=== PATIENT | female | born 1965 | race Caucasian/White ===

== ENCOUNTER 2024-08-10 21:30 | Inpatient (IN) ==
[2024-08-10] MEDS: SODIUM CHLORIDE 0.9% 2,000 ML IV ONE (22:22)
[2024-08-10 22:37] LABS: Appearance Urine Clear (Clear); Bacteria Urine Automated 1+ (None Seen); Bilirubin Urine Negative (Negative); Blood Urine 1+ (Negative); Cast Urine Automated 0-2 /lpf (0-2); Color Urine Yellow; Glucose Urine UA Negative (Negative); Ketones Urine Negative (Negative); Leukocyte Esterase Urine 1+ (Negative); Nitrite Urine Negative (Negative); Protein Urine Negative (Negative); RBC Urine Automated 0-2 /hpf (0-2); Specific Gravity Urine 1.012 (1.000-1.030); Urobilinogen Urine Negative (Negative); pH Urine 5.5 (4.5-7.5)
[2024-08-10] MEDS: CEFEPIME 2000MG 2,000 MG/20 ML SYR IV STA (22:49)
[2024-08-10 22:51] LABS: Albumin Globulin Ratio 1.4 (0.9-2); BUN Creatinine Ratio 16.5 (10-20); Bilirubin,Total 0.5 mg/dl (0.2-1.0); Calcium 9.3 mg/dl (8.6-10.3); Creatinine Clr Calc Pharmacy 78.5 ml/min; Globulin 2.8 gm/dl (2.5-4.0); Magnesium 1.4 mg/dl (1.7-2.4); Potassium 3.6 mmol/L (3.5-5.1); Total Protein 6.8 gm/dl (6.0-8.3)
--- NOTE | 2024-08-10 22:52 | Emergency Department Note ---
Impression & Plan Sepsis, Fever, Elevated lactic acid level, Hypomagnesemia ED Provider Note HISTORY OF PRESENT ILLNESS: Patient is a 59-year-old female presenting with a fever. Patient reports that she felt very hot and chilled at around 5 PM and took her temperature and it was 102. She states she took a Percocet and thinks that the Tylenol and the Percocet broke her temperature. However, the patient did just receive her fifth round of chemotherapy 48 hours ago. Denies any chest pain or shortness of breath. Denies any recent sick contact exposures. Denies any abdominal pain, nausea or vomiting. Denies any diarrhea. Denies any dysuria or hematuria. She is currently undergoing chemotherapy for metastatic lung cancer. Patient does report she is recently being treated for a port infection and is on oral antibiotics. ROS: as above PHYSICAL EXAM: Constitutional: Patient appears in no acute distress. HENT: Head: Normocephalic and atraumatic. Eyes: EOMI, PERRL Mouth/Throat: Mucous membranes moist. Neck: Trachea midline. Neck supple. Cardiovascular: Tachycardic with regular rhythm. No murmurs, rubs or gallops. Intact distal pulses. Pulmonary/Chest: No respiratory distress. Breath sounds clear and equal bilaterally. No wheezes or rales. Abdominal: Abdomen soft, no tenderness, rebound or guarding. Musculoskeletal: No edema, tenderness or deformity noted. Skin: Warm and dry. No rash, erythema, pallor or cyanosis Psychiatric: Appropriate mood and affect for situation. Neurological: Alert and keenly responsive. CN II-XII grossly intact, moving all extremities equally and fully. MDM: - Vitals signs showed tachycardia - History obtained via patient. History as above. - Chronic conditions affecting care: metastatic lung cancer; COPD; GERD - Differential diagnoses include, but are not limited to: pneumonia; viral syndrome; UTI; sepsis; bacteremia; electrolyte abnormality - Order placed for continuous cardiac monitoring. At this time, monitor showed rate of 102 bpm with normal sinus rhythm, per my interpretation. - External medical records reviewed. Radiation oncology history and physical exam dated 04/27/2024 was reviewed. Patient has primarily lung cancer that has metastasized to the bone. She was undergoing palliative radiation therapy of her left clavicle and thoracic spine. - EKG interpreted by myself showed normal sinus rhythm. Rate tachycardic at 117 bpm. QT 324. No acute ischemic changes. - Laboratory workup interpreted by myself showed leukocytosis (WBC 39.88) with neutrophil predominance; normal PT/INR; stable electrolytes other than hypomagnesemia (Mg 1.5); elevated lactate (2.3); normal procalcitonin; normal troponin - Blood cultures obtained - Patient given 1g IV magnesium in ER for electrolyte replacement - Patient given 2L NS in ER. Sepsis volume fluid calculation based on ideal body weight is 1636.20 mL - Empirically given 2g IV cefepime - UA shows evidence of infection - CXR negative for pneumonia, per my interpretation - Viral respiratory panel negative - Discussion was had with piano case and bench assembler about patient's case and need for admission - Hospitalist, Dr. Medina, consulted for admission - [facility] ASSESSMENT AND PLAN: Diagnosis: Sepsis; acute UTI; hypomagnesemia; elevated lactic acid level Plan: admit Past Med/Surg History Problem List (Updated 08/10/24 @ 23:27 by Melissa Galindo MD) Hypomagnesemia (Acute) Elevated lactic acid level (Acute) Fever (Acute) Sepsis (Acute) Malignant neoplasm of lung metastatic to bone (Chronic) Medical History Melanoma Lung cancer COPD (chronic obstructive pulmonary disease) Anxiety GERD (gastroesophageal reflux disease) History of tobacco abuse Surgical History (Updated 04/27/24 @ 08:22 by Brisa Young, DAVID) H/O breast augmentation History of carpal tunnel surgery History of surgery on arm History of bunionectomy History of tonsillectomy History of thoracotomy History of lung surgery History of lobectomy of lung Family History (Updated 04/27/24 @ 08:24 by Brisa Young RN) Father No problems noted. Mother Cancer, Onset Age: 71 pancreatic cancer Daughter No problems noted. Son No problems noted. Son No problems noted. Social History Smoking Status: Never smoker Preferred Language: Ukrainian Beliefs That Will Affect Care: None Feels Safe at Home: Yes Allergies Allergies Allergy/AdvReac Type Severity Reaction Status Date / Time Iodinated Contrast Media Allergy Unknown Rash Verified 05/09/24 14:17 Home Meds Home Medications Medication Instructions Recorded Confirmed atorvastatin 40 mg tablet 40 mg PO DAILY 04/27/24 05/09/24 cholecalciferol (vitamin D3) 50 50 mcg PO DAILY 04/27/24 05/09/24 mcg (2,000 unit) capsule clonazepam 0.5 mg tablet 0.5 mg PO DAILY PRN anxiety 04/27/24 05/09/24 conjugated estrogens 0.625 mg 0.625 mg PO DAILY 04/27/24 05/09/24 tablet (Premarin) dexamethasone 4 mg tablet 8 mg PO DAILY 04/27/24 05/09/24 duloxetine 30 mg capsule,delayed 30 mg PO DAILY 04/27/24 05/09/24 release ferrous sulfate 325 mg (65 mg 325 mg PO DAILY 04/27/24 05/09/24 iron) tablet lactulose 10 gram/15 mL oral 30 ml PO BID 04/27/24 05/09/24 solution oxycodone 40 mg tablet,crush 40 mg PO BID 04/27/24 05/09/24 resistant,extended release 12 hr oxycodone-acetaminophen 5 mg-325 2 tab PO Q6H PRN pain 04/27/24 05/09/24 mg tablet (Percocet) pantoprazole 40 mg tablet,delayed 40 mg PO BID 04/27/24 05/09/24 release tiotropium 2.5 mcg-olodaterol 2.5 2 puff inhalation DAILY 04/27/24 05/09/24 mcg/actuation mist for inhalation (Stiolto Respimat) trazodone 50 mg tablet 100 mg PO HS 04/27/24 05/09/24 Results & Data (ED) Vital Signs Vital Signs - 24 hr 08/10/24 21:32 08/10/24 22:07 08/10/24 22:18 Temperature 36.9 C Temperature Source Oral Pulse Rate 132 H 118 H Respiratory Rate 20 Respiratory Effort / Characteristics Non-Labored Spontaneous Respiratory Depth Normal Respiratory Pattern Regular Blood Pressure 133/82 Blood Pressure Mean 99 Blood Pressure Position Lying Pulse Oximetry 93 Oxygen Delivery Method Room Air Sepsis Recent Fever Within 48 Hours Yes Sepsis New/Unexplained Change in Mental Status No Sepsis Action Taken by Nursing No Action Required Laboratory Data 08/10/24 22:15 08/10/24 22:15 Lab Results 08/10/24 08/10/24 08/10/24 Range/Units 22:14 22:15 22:20 WBC 39.88 H* (4.8-10.8) K/ul RBC 3.74 L (4.20-5.40) M/uL Hgb 11.9 L (12.0-16.0) g/dl Hct 35.0 L (37.0-47.0) % MCV 93.6 (80.0-100.0) fL MCH 31.8 (25.0-34.0) pg MCHC 34.0 (32.0-36.0) g/dL RDW Std Deviation 57.6 H (36.4-46.3) fL RDW Coeff of [place] 16.6 H (11.5-14.5) % Plt Count 163 (130-400) K/uL MPV 10.5 (9.4-12.4) fL Immature Gran % (Auto) 5.1 % Neut % (Auto) 91.8 % Lymph % (Auto) 2.0 % [place] % (Auto) 0.7 % Eos % (Auto) 0.1 % Baso % (Auto) 0.3 % Neut # (Auto) 36.65 H (1.40-6.50) K/uL Lymph # (Auto) 0.79 L (1.20-3.40) K/uL [place] # (Auto) 0.28 (0.11-0.59) K/uL Eos # (Auto) 0.02 (0.00-0.50) K/uL Baso # (Auto) 0.10 (0.00-0.20) K/uL Immature Gran # (Auto) 2.04 H (0.01-0.20) K/uL Polychromasia 1+ PT 10.1 (9.0-12.0) Seconds INR 0.9 (0.9-1.1) APTT 22 (21-31) Seconds PTT Ratio 0.8 Sodium 138 (136-145) mmol/L Potassium 3.6 (3.5-5.1) mmol/L Chloride 103 (98-107) mmol/L Carbon Dioxide 25 (21-32) mmol/L Anion Gap 10 (3-11) BUN 13 (6-23) mg/dl Creatinine 0.79 (0.6-1.2) mg/dl Est Cr Clr Drug Dosing 78.5 ml/min eGFR 85.58 BUN/Creatinine Ratio 16.5 (10-20) Glucose 118 H (70-99(Fasting)) mg/dl Lactate 2.3 H* (0.4-2.0) mmol/L Calcium 9.3 (8.6-10.3) mg/dl Magnesium 1.4 L (1.7-2.4) mg/dl Total Bilirubin 0.5 (0.2-1.0) mg/dl AST 21 (13-39) U/L ALT 26 (7-52) U/L Alkaline Phosphatase 90 (34-104) U/L Troponin I High Sens 11.3 (0-14) pg/ml Total Protein 6.8 (6.0-8.3) gm/dl Albumin 4.0 (3.4-5.0) gm/dl Globulin 2.8 (2.5-4.0) gm/dl Albumin/Globulin Ratio 1.4 (0.9-2) Procalcitonin 0.19 (0-0.5) ng/ml Urine Color Yellow Urine Appearance Clear (Clear) Urine pH 5.5 (4.5-7.5) Ur Specific [place] 1.012 (1.000-1.030) Urine Protein Negative (Negative) Urine Glucose (UA) Negative (Negative) Urine Ketones Negative (Negative) Urine Blood 1+ H (Negative) Urine Nitrite Negative (Negative) Urine Bilirubin Negative (Negative) Urine Urobilinogen Negative (Negative) Ur Leukocyte Esterase 1+ H (Negative) Urine WBC (Auto) 6-10 H (0-5) /hpf Urine RBC (Auto) 0-2 (0-2) /hpf U Hyaline Cast (Auto) 0-2 (0-2) /lpf U Epithel Cells (Auto) 3-5 H (0-2) /hpf Urine Bacteria (Auto) 1+ H (None Seen) Adenovirus (PCR) Not Detected (NotDetected) B. pertussis DNA (PCR) Not Detected (NotDetected) B.parapertussis DNA PCR Not Detected (NotDetected) C. pneumoniae DNA (PCR) Not Detected (NotDetected) Coronavirus OC43 (PCR) Not Detected (NotDetected) Coronavirus HKU1 (PCR) Not Detected (NotDetected) Coronavirus 229E (PCR) Not Detected (NotDetected) SARS-CoV-2 (PCR) Not Detected (NotDetected) Coronavirus NL63 (PCR) Not Detected (NotDetected) Human Metapneumovir PCR Not Detected (NotDetected) Influenza Type A (PCR) Not Detected (NotDetected) Influenza Type B (PCR) Not Detected (NotDetected) M. pneumoniae (PCR) Not Detected (NotDetected) Parainfluenza 1 (PCR) Not Detected (NotDetected) Parainfluenza 2 (PCR) Not Detected (NotDetected) Parainfluenza 3 (PCR) Not Detected (NotDetected) Parainfluenza 4 (PCR) Not Detected (NotDetected) RSV (PCR) Not Detected (NotDetected) Entero/Rhino (PCR) Not Detected (NotDetected) Administered Medications Sodium Chloride (Nss) 2,000 mls @ 999 mls/hr IV .Q2H1M ONE Stop: 08/10/24 23:45 Last Admin: 08/10/24 22:22 Dose: 999 mls/hr Documented By: TITO Magnesium Sulfate/Dextrose (Magnesium Sulfate / D5w) 1 gm in 100 mls @ 100 mls/hr IV NOW STA Stop: 08/10/24 23:51 Last Admin: 08/10/24 23:11 Dose: 100 mls/hr Documented By: Discontinued Medications Cefepime HCl (Maxipime 2000mg) 2,000 mg in 20 mls @ 5 mls/min IV NOW STA; Protocol Stop: 08/10/24 22:39 Last Admin: 08/10/24 22:49 Dose: 5 mls/min Documented By: TITO Discharge Plan Visit Data Chief Complaint: Fever Stated Complaint: FEVER OF 102, CANCER TRMT PT, ED Provider: Melissa Galindo Discharge Problem: Sepsis, Fever, Elevated lactic acid level, Hypomagnesemia Forms Stand Alone Forms: My [facility] Prescriptions Prescriptions: No Action atorvastatin 40 mg tablet 40 mg PO DAILY clonazepam 0.5 mg tablet 0.5 mg PO DAILY PRN (Reason: anxiety) dexamethasone 4 mg tablet 8 mg PO DAILY duloxetine 30 mg capsule,delayed release(DR/EC) 30 mg PO DAILY ferrous sulfate 325 mg (65 mg iron) tablet 325 mg PO DAILY lactulose 10 gram/15 mL solution 30 ml PO BID oxycodone 40 mg tablet,oral only,ext.rel.12 hr 40 mg PO BID oxycodone-acetaminophen [Percocet] 5-325 mg tablet 2 tab PO Q6H PRN (Reason: pain) pantoprazole 40 mg tablet,delayed release (DR/EC) 40 mg PO BID Premarin 0.625 mg tablet 0.625 mg PO DAILY Rx Instructions: cyclically Stiolto Respimat 2.5-2.5 mcg/actuation mist 2 puff inhalation DAILY trazodone 50 mg tablet 100 mg PO HS cholecalciferol (vitamin D3) 50 mcg (2,000 unit) capsule 50 mcg PO DAILY Referrals Referrals: Tiffany Norris DO [Primary Care Provider] -
[2024-08-10 22:53] LABS: Basophils % (auto) 0.3 %; Eosinophils # (auto) 0.02 K/uL (0.00-0.50); Eosinophils % (auto) 0.1 %; Hemoglobin 11.9 g/dl (12.0-16.0); Immature Granulocytes # (auto) 2.04 K/uL (0.01-0.20); Immature Granulocytes % (auto) 5.1 %; Lymphocytes # (auto) 0.79 K/uL (1.20-3.40); Mean Corpuscular Hemoglobin 31.8 pg (25.0-34.0); Mean Corpuscular Volume 93.6 fL (80.0-100.0); Mean Platelet Volume 10.5 fL (9.4-12.4); Monocytes # (auto) 0.28 K/uL (0.11-0.59); Monocytes % (auto) 0.7 %; Neutrophils # (auto) 36.65 K/uL (1.40-6.50); Neutrophils % (auto) 91.8 %; Platelet Count 163 K/uL (130-400); Polychromasia 1+; RDW Coefficient of Variation 16.6 % (11.5-14.5); RDW Standard Deviation 57.6 fL (36.4-46.3); Red Blood Count 3.74 M/uL (4.20-5.40); White Blood Count 39.88 K/ul (4.8-10.8)
[2024-08-10 22:59] LABS: Troponin I High Sensitivity 11.3 pg/ml (0-14)
[2024-08-10 23:03] LABS: INR 0.9 (0.9-1.1); Partial Thromboplastin Ratio 0.8; Partial Thromboplastin Time 22 Seconds (21-31); Prothrombin Time 10.1 Seconds (9.0-12.0)
[2024-08-10] MEDS: MAGNESIUM SULFATE / D5W 1 GM/100 ML BAG IV STA (23:11)
[2024-08-10 23:17] LABS: Adenovirus PCR Not Detected (NotDetected); Bordetella parapertussis PCR Not Detected (NotDetected); Bordetella pertussis PCR Not Detected (NotDetected); Chlamydia pneumoniae PCR Not Detected (NotDetected); Coronavirus 229E PCR Not Detected (NotDetected); Coronavirus CoV-2 (COVID19)PCR Not Detected (NotDetected); Coronavirus HKU1 PCR Not Detected (NotDetected); Coronavirus NL63 PCR Not Detected (NotDetected); Coronavirus OC43PCR Not Detected (NotDetected); Human Metapneumovirus PCR Not Detected (NotDetected); Influenza A PCR Not Detected (NotDetected); Influenza B PCR Not Detected (NotDetected); Mycoplasma pneumoniae PCR Not Detected (NotDetected); Parainfluenza Virus 1 PCR Not Detected (NotDetected); Parainfluenza Virus 2 PCR Not Detected (NotDetected); Parainfluenza Virus 3 PCR Not Detected (NotDetected); Parainfluenza Virus 4 PCR Not Detected (NotDetected); Respiratory Syncytial VirusPCR Not Detected (NotDetected); Rhinovirus/Enterovirus PCR Not Detected (NotDetected)
--- NOTE | 2024-08-10 23:34 | History & Physical Report ---
Date of Service August 10, 2024 Assessment & Plan (1) Severe sepsis: Plan: Severe sepsis SIRS plus lactic acidosis Immunocompromised patient, hx metastatic lung adenocarcinoma status post surgery/radiation/ongoing chemotherapy A port infection as possible source, possible malpositioning on recent outpatient PET/CT Failed outpatient treatment with Keflex/Bactrim Rule out abscess hx COPD, lung status at baseline WHIT as per records hyperlipidemia, on statin Rx prior ME on recent outpatient PET scan, outpatient nuclear stress test contemplated by cardiology next week mood disorder, at baseline Hyperglycemia rule out DM Hypomagnesemia past tobacco abuse Medical telemetry CS, Daptomycin, Cefepime Hold statin while on daptomycin Follow lactic acid response to IVF CT chest right a port swelling Further management pending initial workup results Check hemoglobin A1c DVT prophylaxis. Lovenox subcu Full code Patient requesting updates providers. Mr. Darryl Andrews, contact #[phone]. Text document was generated using [employer] voice recognition software. It may contain grammatical or spelling errors. Kindly contact undersigned for clarification of any documentation item in question. History of Present Illness Chief Complaint: Fever Primary Care Provider: Richard Marshall DO History obtained from patient, family, and records. Medical history significant for COPD, WHIT as per records, hyperlipidemia, metastatic lung adenocarcinoma status post surgery/radiation/ongoing chemotherapy, prior ME on recent outpatient PET scan, GERD, mood disorder, past tobacco abuse. Patient with recurrent redness/swelling over right Aport site the last 2 months. IR guided A port placeemnt at [facility] March 2024. 2 courses of outpatient Keflex. Seems to be coinciding with chemotherapy sessions as per patient. Twist or spiral on Mediport catheter within proximal SVC incidentally found on outpatient PET/CT June 2024. Patient recently started by outpatient oncology provider on Bactrim course following visit 2 days ago. Tonight, patient noted fever, chills at home. Denies chest pain, SOB, cough, abdominal pain, diarrhea or dysuria symptoms. IV cefepime administered at the ER. Medical History as above Outpatient PET/CT June 2024 1. Findings consistent with response to therapy with decreasing size and activity of the esophageal/paraesophageal lesion in the lower thorax, left infrahilar lymph node, left lower lobe nodule, and left paraspinal/costophrenic angle nodule. 2. Multiple previously treated osseous metastatic lesions. The remaining active ones are as detailed below with decreased activity from the previous examination consistent with response to therapy. 3. Diffuse marrow space activity is present, likely secondary to hyperstimulation or rebound effect. 4. There is a twist or spiral of the MediPort catheter within the proximal superior vena cava. Recommend correlation with catheter function. 5. Prior myocardial infarction. Outpatient [facility] cardiology visit today given myocardial infarction on outpatient CT associated with post chemo chest pain. Outpatient nuclear stress test contemplated next week. Aspirin and metoprolol Rx prescribed by outpatient provider interim. 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 Allergies Allergy/AdvReac Type Severity Reaction Status Date / Time Iodinated Contrast Media Allergy Unknown Rash Verified 08/10/24 23:28 Home Medications Medication Instructions Recorded Confirmed Type atorvastatin 40 mg tablet 40 mg PO QAM 04/27/24 08/10/24 History cholecalciferol (vitamin D3) 50 50 mcg PO HS 04/27/24 08/10/24 History mcg (2,000 unit) capsule clonazepam 0.5 mg tablet 0.5 mg PO DAILY PRN anxiety 04/27/24 08/10/24 History conjugated estrogens 0.625 mg 0.625 mg PO HS 04/27/24 08/10/24 History tablet (Premarin) duloxetine 30 mg capsule,delayed 30 mg PO HS 04/27/24 08/10/24 History release ferrous sulfate 325 mg (65 mg 325 mg PO HS 04/27/24 08/10/24 History iron) tablet oxycodone-acetaminophen 5 mg-325 2 tab PO Q6H PRN pain 04/27/24 08/10/24 History mg tablet (Percocet) pantoprazole 40 mg tablet,delayed 40 mg PO BID 04/27/24 08/10/24 History release tiotropium 2.5 mcg-olodaterol 2.5 2 puff inhalation QAM 04/27/24 08/10/24 History mcg/actuation mist for inhalation (Stiolto Respimat) trazodone 50 mg tablet 100 mg PO HS 04/27/24 08/10/24 History allopurinol 100 mg tablet 100 mg PO QAM 08/10/24 08/10/24 History aspirin 81 mg tablet,delayed 81 mg PO DAILY 08/10/24 08/10/24 History release metoprolol succinate 25 mg 12.5 mg PO DAILY 08/10/24 08/10/24 History tablet,extended release 24 hr olanzapine 10 mg tablet See Rx Instructions .Route .COMPLEX 08/10/24 08/10/24 History ondansetron HCl 8 mg tablet 8 mg PO Q8 PRN Nausea 08/10/24 08/10/24 History sulfamethoxazole 800 1 tab PO AMHS 08/10/24 08/10/24 History mg-trimethoprim 160 mg tablet Past Med/Surg History Problem List (Updated 08/11/24 @ 01:26 by Gume Medina MD) Severe sepsis Hypomagnesemia (Acute) Elevated lactic acid level (Acute) Fever (Acute) Sepsis (Acute) Malignant neoplasm of lung metastatic to bone (Chronic) Medical History Melanoma Lung cancer COPD (chronic obstructive pulmonary disease) Anxiety GERD (gastroesophageal reflux disease) History of tobacco abuse Surgical History (Updated 04/27/24 @ 08:22 by Brisa Young RN) H/O breast augmentation History of carpal tunnel surgery History of surgery on arm History of bunionectomy History of tonsillectomy History of thoracotomy History of lung surgery History of lobectomy of lung Family History (Updated 04/27/24 @ 08:24 by Brisa Young RN) Father No problems noted. Mother Cancer, Onset Age: 71 pancreatic cancer Daughter No problems noted. Son No problems noted. Son No problems noted. Social History Smoking Status: Never smoker Preferred Language: Tongan Beliefs That Will Affect Care: None Feels Safe at Home: Yes Review of Systems Review of Systems: As per HPI, all other systems reviewed and negative Physical Exam Physical Exam: GENERAL: Comfortable, pleasant, obese, no respiratory distress SKIN: Normal color, warm HEENT: [place] palpebral conjunctivae, no ptosis, dry buccal mucosa NECK : Supple, no tenderness CHEST : Minimal induration over right a port with minimal tenderness, no gross fluctuance, decreased breath sounds HEART : Tachycardic, no obvious murmurs ABDOMEN: Some distention, nontender EXTREMITIES : No LE swelling/tenderness, no other conspicuous deformities noted NEUROLOGIC : Coherent, no facial asymmetry, no other gross focality Results & Data Results & Data Vital Signs (Past 12 Hours) Vital Signs Temp Pulse Resp BP Pulse Ox O2 Del Method 08/10/24 22:18 Room Air 08/10/24 22:07 118 H 08/10/24 21:32 36.9 C 132 H 20 133/82 93 Laboratory Results Laboratory Results WBC 39.88 K/ul (4.8-10.8) H* 08/10/24 22:15 RBC 3.74 M/uL (4.20-5.40) L 08/10/24 22:15 Hgb 11.9 g/dl (12.0-16.0) L 08/10/24 22:15 Hct 35.0 % (37.0-47.0) L 08/10/24 22:15 MCV 93.6 fL (80.0-100.0) 08/10/24 22:15 MCH 31.8 pg (25.0-34.0) 08/10/24 22:15 MCHC 34.0 g/dL (32.0-36.0) 08/10/24 22:15 RDW Std Deviation 57.6 fL (36.4-46.3) H 08/10/24 22:15 RDW Coeff of [place] 16.6 % (11.5-14.5) H 08/10/24 22:15 Plt Count 163 K/uL (130-400) 08/10/24 22:15 MPV 10.5 fL (9.4-12.4) 08/10/24 22:15 Immature Gran % (Auto) 5.1 % 08/10/24 22:15 Neut % (Auto) 91.8 % 08/10/24 22:15 Lymph % (Auto) 2.0 % 08/10/24 22:15 [place] % (Auto) 0.7 % 08/10/24 22:15 Eos % (Auto) 0.1 % 08/10/24 22:15 Baso % (Auto) 0.3 % 08/10/24 22:15 Neut # (Auto) 36.65 K/uL (1.40-6.50) H 08/10/24 22:15 Lymph # (Auto) 0.79 K/uL (1.20-3.40) L 08/10/24 22:15 [place] # (Auto) 0.28 K/uL (0.11-0.59) 01/15/25 22:15 Eos # (Auto) 0.02 K/uL (0.00-0.50) 08/10/24 22:15 Baso # (Auto) 0.10 K/uL (0.00-0.20) 08/10/24 22:15 Immature Gran # (Auto) 2.04 K/uL (0.01-0.20) H 08/10/24 22:15 Polychromasia 1+ 08/10/24 22:15 PT 10.1 Seconds (9.0-12.0) 08/10/24 22:15 INR 0.9 (0.9-1.1) 08/10/24 22:15 APTT 22 Seconds (21-31) 08/10/24 22:15 PTT Ratio 0.8 08/10/24 22:15 Sodium 138 mmol/L (136-145) 08/10/24 22:15 Potassium 3.6 mmol/L (3.5-5.1) 08/10/24 22:15 Chloride 103 mmol/L (98-107) 08/10/24 22:15 Carbon Dioxide 25 mmol/L (21-32) 08/10/24 22:15 Anion Gap 10 (3-11) 08/10/24 22:15 BUN 13 mg/dl (6-23) 08/10/24 22:15 Creatinine 0.79 mg/dl (0.6-1.2) 08/10/24 22:15 Est Cr Clr Drug Dosing 78.5 ml/min 08/10/24 22:15 eGFR 85.58 08/10/24 22:15 BUN/Creatinine Ratio 16.5 (10-20) 08/10/24 22:15 Glucose 118 mg/dl (70-99(Fasting)) H 08/10/24 22:15 Lactate 2.3 mmol/L (0.4-2.0) H* 08/10/24 22:14 Calcium 9.3 mg/dl (8.6-10.3) 08/10/24 22:15 Magnesium 1.4 mg/dl (1.7-2.4) L 08/10/24 22:15 Total Bilirubin 0.5 mg/dl (0.2-1.0) 08/10/24 22:15 AST 21 U/L (13-39) 08/10/24 22:15 ALT 26 U/L (7-52) 08/10/24 22:15 Alkaline Phosphatase 90 U/L (34-104) 08/10/24 22:15 Troponin I High Sens 11.3 pg/ml (0-14) 08/10/24 22:15 Total Protein 6.8 gm/dl (6.0-8.3) 08/10/24 22: Albumin 4.0 gm/dl (3.4-5.0) 08/10/24: Globulin 2.8 gm/dl (2.5-4.0) 08/10/24 22: Albumin/Globulin Ratio 1.4 (0.9-2) 08/10/24: Procalcitonin 0.19 ng/ml (0-0.5) 08/10/24 22:15 Urine Color Yellow 08/10/24 22:20 Urine Appearance Clear (Clear) 08/10/24 22: Urine pH 5.5 (4.5-7.5) 08/10/24:20 Ur Specific [place] 1.012 (1.000-1.030) 08/10/24 22:20 Urine Protein Negative (Negative) 08/10/24 22:20 Urine Glucose (UA) Negative (Negative) 08/10/24: Urine Ketones Negative (Negative) 08/10/24 22:20 Urine Blood 1+ (Negative) H 08/10/24 22:20 Urine Nitrite Negative (Negative) 08/10/24 22: Urine Bilirubin Negative (Negative) 08/10/24 22:20 Urine Urobilinogen Negative (Negative) 08/10/24 22:20 Ur Leukocyte Esterase 1+ (Negative) H 08/10/24 22:20 Urine WBC (Auto) 6-10 /hpf (0-5) H 08/10/24 22:20 Urine RBC (Auto) 0-2 /hpf (0-2) 08/10/24 22:20 U Hyaline Cast (Auto) 0-2 /lpf (0-2) 08/10/24 22:20 U Epithel Cells (Auto) 3-5 /hpf (0-2) H 08/10/24 22:20 Urine Bacteria (Auto) 1+ (None Seen) H 08/10/24 22:20 Adenovirus (PCR) Not Detected (NotDetected) 08/10/24 22:20 B. pertussis DNA (PCR) Not Detected (NotDetected) 08/10/24 22:20 B.parapertussis DNA PCR Not Detected (NotDetected) 08/10/24 22:20 C. pneumoniae DNA (PCR) Not Detected (NotDetected) 08/10/24 22:20 Coronavirus OC43 (PCR) Not Detected (NotDetected) 08/10/24 22:20 Coronavirus HKU1 (PCR) Not Detected (NotDetected) 08/10/24 22:20 Coronavirus 229E (PCR) Not Detected (NotDetected) 08/10/24 22:20 SARS-CoV-2 (PCR) Not Detected (NotDetected) 08/10/24 22:20 Coronavirus NL63 (PCR) Not Detected (NotDetected) 08/10/24 22:20 Human Metapneumovir PCR Not Detected (NotDetected) 08/10/24 22:20 Influenza Type A (PCR) Not Detected (NotDetected) 08/10/24 22:20 Influenza Type B (PCR) Not Detected (NotDetected) 08/10/24 22:20 M. pneumoniae (PCR) Not Detected (NotDetected) 08/10/24 22:20 Parainfluenza 1 (PCR) Not Detected (NotDetected) 08/10/24 22:20 Parainfluenza 2 (PCR) Not Detected (NotDetected) 08/10/24 22:20 Parainfluenza 3 (PCR) Not Detected (NotDetected) 08/10/24 22:20 Parainfluenza 4 (PCR) Not Detected (NotDetected) 08/10/24 22:20 RSV (PCR) Not Detected (NotDetected) 08/10/24 22:20 Entero/Rhino (PCR) Not Detected (NotDetected) 08/10/24 22:20 Diagnostic Findings EKG as per my interpretation :Rate 120, sinus tachycardia, normal axis, incomplete RBBB, T wave abnormalities anteroseptal and inferior leads
--- NOTE | 2024-08-10 23:46 | XRay Report ---
Exam(s): XR CXR 1 VIEW EXAM: XR Chest, 1 View CLINICAL HISTORY: Reason for exam: Sepsis. TECHNIQUE: Frontal view of the chest. COMPARISON: No relevant prior studies available. FINDINGS: Lungs: Small amount of atelectasis or infiltrate in the left lower lung. Pleural space: Unremarkable. No pneumothorax. Heart: Unremarkable. No cardiomegaly. Mediastinum: Unremarkable. Normal mediastinal contour. Bones/joints: Mild osteophytosis in the lower thoracic spine. No acute fracture. Tubes, lines and devices: Port-A-Cath on the right with the catheter tip in the superior vena cava. Upper abdomen: There is no pneumoperitoneum under the diaphragm. IMPRESSION: 1. Small amount of atelectasis or infiltrate in the left lower lung. 2. Port-A-Cath on the right with the catheter tip in the superior vena cava. Electronically signed by: Jamie Ricks MD 08/10/24 23:46 PM
[2024-08-11] MEDS: MAGNESIUM SULFATE / D5W 1 GM/100 ML BAG IV ONE ×2 (00:05→08:07)
[2024-08-11] MEDS: POTASSIUM CHLORIDE CRTAB 20 MEQ TABCR PO STA (00:05)
[2024-08-11] MEDS ORDERED: PROMETHAZINE 6.25 MG/50.25 ML BAG IV PRN (00:07)
[2024-08-11] MEDS ORDERED: traMADol HCL 50 MG TABLET PO PRN (00:07)
[2024-08-11] MEDS ORDERED: clonazePAM 0.5 MG TAB PO PRN (00:08)
[2024-08-11] MEDS: DAPTOmycin 275 MG in SYRINGE 0 ML IV ONE (00:24)
--- NOTE | 2024-08-11 01:51 | CT Scan Report ---
EXAM: CT chest diagnostic wo con CLINICAL HISTORY: recurrent R chest wall swelling TECHNIQUE: Contiguous axial images were obtained from the neck base through the upper abdomen without contrast. In addition, sagittal and coronal reconstructions were performed to potentially increase the sensitivity for the detection of disease. CT scan was performed according to ALARA (as low as reasonable achievable). COMPARISON: 03/07/2024 11:30:19 [employer]. FINDINGS: Focal fibrotic scar is noted involving right apical segment. Few atelectatic bands are noted involving left lower lobe and lingula Diffuse centrilobular emphysema noted involving both lungs. Subtle few tiny ground-glass area are noted involving right upper lobe. Rest of lungs are clear. The central airways are patent. There are no pleural effusions. No pneumothorax is seen. Evaluation of the mediastinum and amalia is limited due to the lack of intravenous contrast. No axillary or mediastinal adenopathy is identified. The thyroid is unremarkable. The heart, aorta, and pulmonary arteries are of normal size and configuration. There are no appreciable coronary artery and aortic atherosclerotic calcifications. No pericardial effusion is identified. Imaged portions of the upper abdomen are unremarkable. Sclerotic lesions seen in left 5th rib. Multiple sclerotic foci also seen in thoracic vertebral bodies. IMPRESSION: Focal fibrotic scar is noted involving right apical segment. -stable. Few atelectatic bands are noted involving left lower lobe and lingula - sequelae of previous infection Diffuse centrilobular emphysema noted involving both lungs. -stable. Subtle few tiny ground-glass area are noted involving right upper lobe. -stable. Sclerotic lesions seen in left 5th rib. Multiple sclerotic foci also seen in thoracic vertebral bodies. Likely metastatic. Increased in extent and size as compared to prior study- suggestive of progressive disease. Electronically signed by Michael Herzog 08-11-2024 01:50 AM
[2024-08-11] MEDS: METOPROLOL TARTRATE 1 MG/ML VIAL IV STA (02:03)
[2024-08-11] MEDS: NSS + 20MEQ KCL 20 MEQ/1,000 ML BAG IV ONE (02:06)
[2024-08-11 02:23] LABS: BUN Creatinine Ratio 16.4 (10-20); Calcium 8.7 mg/dl (8.6-10.3); Creatinine Clr Calc Pharmacy 93.4 ml/min; Magnesium 1.9 mg/dl (1.7-2.4); Potassium 3.7 mmol/L (3.5-5.1)
[2024-08-11 02:31] LABS: Basophils # (auto) 0.12 K/uL (0.00-0.20); Basophils % (auto) 0.3 %; Eosinophils # (auto) 0.03 K/uL (0.00-0.50); Eosinophils % (auto) 0.1 %; Hematocrit (blood only) 33.5 % (37.0-47.0); Hemoglobin 11.1 g/dl (12.0-16.0); Immature Granulocytes # (auto) 2.72 K/uL (0.01-0.20); Immature Granulocytes % (auto) 7.5 %; Lymphocytes # (auto) 1.02 K/uL (1.20-3.40); Lymphocytes % (auto) 2.8 %; Mean Corpuscular Hemoglobin 31.3 pg (25.0-34.0); Mean Corpuscular Hgb Conc 33.1 g/dL (32.0-36.0); Mean Corpuscular Volume 94.4 fL (80.0-100.0); Mean Platelet Volume 10.2 fL (9.4-12.4); Monocytes # (auto) 0.25 K/uL (0.11-0.59); Monocytes % (auto) 0.7 %; Neutrophils # (auto) 31.89 K/uL (1.40-6.50); Neutrophils % (auto) 88.6 %; Platelet Count 138 K/uL (130-400); RBC Morphology Unremarkable; RDW Coefficient of Variation 16.6 % (11.5-14.5); RDW Standard Deviation 57.8 fL (36.4-46.3); Red Blood Count 3.55 M/uL (4.20-5.40); White Blood Count 36.03 K/ul (4.8-10.8)
--- OUTSIDE RECORDS SUMMARY | 2024-08-11 03:24 | External Medical Summary | Summary of Care ---
Author Name Unknown Organization [facility] Address [address] [place] [address] Phone [phone] Care Team Providers Care Electronic Assembler Name Role Phone Ankur Jason DO Primary Care Provider [phone] Reason for Referral * Precert (Within 10 days (routine)) - Pending Review Specialty Diagnoses / Procedures Referred By Contac t Referred To Contact Radiology Diagnoses Nonspecific abnormal electrocardiogram (ECG) (EKG) Sinus tachycardia Chest pain, unspecified type 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) Procedures NM MYOCARD PERF IMG SPECT MULT STUDIES WITH PHARM INTERV Lorena Jean PA-C [address] [place] [id number] Phone: tel: fax: Referral ID Status Reason Start Date Expiration Date Visits Requested Visits Authorized [id number] Pending Review Precert 08/10/2024 999 999 Reason for Visit * Reason Comments NEW PATIENT Encounter Details Date Type Department Care Team (Latest Contact Info) Description 08/10/2024 11:30 AM EST Office Visit Cardiology, [facility] [address] [place] [phone] Lorena Jean PA-C [address] [place] [phone] Chest pain, unspecified type*; Nonspecific abnormal electrocardiogram (ECG) (EKG); Sinus tachycardia; 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); Dyslipidemia, goal LDL below 100 Allergies Active Allergy Reactions Criticality Noted Date Comments Iodinated Contrast Media 07/05/2021 "itchy, rash and hives" CT Scan documented as of this encounter (statuses as of 08/10/2024) Medications Vitamin D (Cholecalciferol) 50 MCG (2000 UT) Oral Capsule Take by mouth at bedtime. Active Ferrous Sulfate 325 (65 Fe) MG Oral Tablet (Feosol) Take 1 Tablet by mouth at bedtime. Active Stiolto Respimat 2.5-2.5 MCG/ACT Inhalation Aerosol Solution (Tiotropium Holley-Olodaterol )Indications:COPD, severity to be determined ([facility]) Inhale 2 Puffs by mouth daily. 12 g 3 07/24/20 21 Active Premarin 0.625 MG/GM Vaginal Cream (Estrogens, Conjugated) Administer into the vagina at bedtime . As directed. 42.5 g 5 10/08/19 22 Active Atorvastatin Calcium 40 MG Oral Tablet (Lipitor) TAKE 1 TABLET DAILY 90 Tablet 3 12/31/19 22 Active CPAP every night at bedtime . Active Premarin 0.625 MG Oral Tablet Take 1 Tablet by mouth at bedtime. 10/17/19 23 Active clonazePAM 0.5 MG Oral Tablet (KlonoPIN) Take 1 Tablet by mouth daily as needed for Anxiety. 15 Tablet 1 12/30/19 23 Active DULoxetine HCl 30 MG Oral Capsule Delayed Release Particles (Cymbalta) Take 1 Capsule by mouth in the morning. 90 Capsule 08/14/19 24 Active traZODone HCl 50 MG Oral Tablet (Desyrel)Indicatio ns:Primary insomnia Take 2 Tablets by mouth at bedtime. 180 Tablet 08/14/19 24 Active Albuterol Sulfate 108 (90 Base) MCG/ACT Inhalation Aerosol Powder Breath Activated Inhale by mouth every 4 hours as needed. Active Ibuprofen 200 MG Oral Tablet (Motrin) Take 4 Tablets by mouth every 8 hours as needed. Active Pantoprazole Sodium 40 MG Oral Tablet Delayed Release (Protonix) Take 1 Tablet by mouth 2 times a day 30 minutes before morning and evening meals. 60 Tablet 3 01/27/20 24 Active Lactulose 10 GM/15ML Oral Solution (Constulose)Indica tions:Drug-induced constipation Take 30 mL by mouth in the morning and 30 mL before bedtime. 1992 mL 2 04/18/20 24 Active diphenhydrAMINE HCl 25 MG Oral Tablet (Benadryl)Indicati ons:Cancer, metastatic to bone (HCC),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),Encounter for antineoplastic chemotherapy,Preve ntion of chemotherapy-induc ed neutropenia Take by mouth 1 Capsule 12 hours prior to paclitaxel infusion. 1 Tablet 05/11/20 24 Active Famotidine 20 MG Oral Tablet (Pepcid)Indication s:Cancer, metastatic to bone (HCC),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),Encounter for antineoplastic chemotherapy,Preve ntion of chemotherapy-induc ed neutropenia Take by mouth 1 Tablet 12 hours prior to paclitaxel infusion. 1 Tablet 05/11/20 24 Active Prochlorperazine Maleate 10 MG Oral Tablet (Compazine)Indicat ions:Cancer, metastatic to bone (HCC),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),Encounter for antineoplastic chemotherapy,Preve ntion of chemotherapy-induc ed neutropenia Take 1 Tablet by mouth every 6 hours as needed for Nausea. 30 Tablet 5 05/11/20 24 Active Loratadine 10 MG Oral Tablet (Claritin)Indicati ons: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),Recurrent adenocarcinoma of lung, unspecified laterality (HCC),Cancer, metastatic to bone (HCC),Lesion of thoracic vertebra Take 1 tablet x5 days starting the day of chemotherapy 30 Tablet 05/12/20 24 Active Lidocaine-Prilocai ne 2.5-2.5 % External Cream (Emla)Indications: 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),Recurrent adenocarcinoma of lung, unspecified laterality (HCC),Cancer, metastatic to bone (HCC),Lesion of thoracic vertebra APPLY TO SKIN OVER MEDIPORT & COVER 1HR PRIOR TO ACCESSING. 30 g 1 05/12/20 24 Active OLANZapine 10 MG Oral Tablet (zyPREXA)Indicatio ns:Cancer, metastatic to bone (HCC),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),Encounter for antineoplastic chemotherapy,Preve ntion of chemotherapy-induc ed neutropenia Take 1 Tablet by mouth at bedtime. On days 1, 2, 3, and 4 of chemo. 30 Tablet 06/27/20 24 Active Allopurinol 100 MG Oral Tablet (Zyloprim)Indicati ons: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) Take 1 Tablet by mouth in the morning. 90 Tablet 1 07/05/20 24 Active Ondansetron HCl 8 MG Oral Tablet (Zofran)Indication s:Chemotherapy induced nausea and vomiting Take 1 Tablet by mouth every 8 hours as needed for Nausea. 30 Tablet 2 08/08/19 25 Active Sulfamethoxazole-T rimethoprim 800-160 MG Oral Tablet (Bactrim DS)Indications:Por t or reservoir infection, initial encounter Take 1 Tablet by mouth in the morning and 1 Tablet before bedtime. Do all this for 14 days. 28 Tablet 08/08/19 25 025 Active oxyCODONE-Acetamin ophen 5-325 MG Oral Tablet (Percocet)Indicati ons: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) Take 2 Tablets by mouth every 6 hours as needed for Pain, Moderate. 60 Tablet 08/08/19 25 Active Metoprolol Succinate ER 25 MG Oral Tablet Extended Release 24 Hour (toPROL XL) Take 0.5 Tablets by mouth in the morning. 30 Tablet 5 08/10/19 25 Active Aspirin 81 MG Oral Tablet Delayed Release Take 1 Tablet by mouth in the morning. 08/10/19 25 Active Hospital, Clinic, or Other Facility Administered Medication Ordered Dose Route Frequency Start Date End Date Status bevaCIZumab (Avastin) inj 1.25 mgIndications:Radiation retinopathy, subsequent encounter 1.25 mg IZ PRN 10/08/2023 10/07/2024 Active ROPivacaine (Naropin) inj 1.5 mgIndications:Radiation retinopathy, subsequent encounter 1.5 mg IJ PRN 10/08/2023 10/07/2024 Active documented as of this encounter (statuses as of 08/10/2024) Active Problems Problem Noted Date Diagnosed Date Dyslipidemia, goal LDL below 100 08/10/2024 Dehydration 07/22/2024 Prevention of chemotherapy-induced neutropenia 0 04/22/2024 Lung cancer metastatic to bone 04/21/2024 Encounter for antineoplastic chemotherapy 2023 COPD, group B, by GOLD 2017 classification 04/04 Overview: Per COPD GOLD Classification Dermatillomania in adult 03/03/2023 Major depressive disorder, recurrent episode, mo derate 10/28/2021 KRYSTA (generalized anxiety disorder) 10/28/2021 History of tobacco abuse 07/09/2021 GERD (gastroesophageal reflux disease) Mood disorder 07/09/2021 documented as of this encounter (statuses as of 08/10/2024) Resolved Problems Problem Noted Date Diagnosed Date Resolved Date COPD, group A, by GOLD 2017 classification 07/07/2022 04/07/2024 Overview: Per COPD GOLD Classification COPD, severity to be determined 07/09/2021 07/10/2022 Overview: Per COPD GOLD Classification documented as of this encounter (statuses as of 08/10/2024) Immunizations Name Administration Dates Next Due Covid-19 Ad26, Single Dose (Jeffrey/J&J) 021 Seasonal Influenza, PF, 6 M & above, IM , (FluLaval or Fluzone) 07/18/2021 Seasonal Influenza, Trivalent, (IIV3), PF, (Fluz one) 04/04/2024 documented as of this encounter Social History Tobacco Use Types Packs/Day Years Used Date Smoking Tobacco: Former Cigarettes 1 35 1 2019 Smokeless Tobacco: Never Alcohol Use Standard Drinks/Week Comments Not Currently 0 (1 standard drink = 0.6 oz pur e alcohol) Hunger Vital Sign Answer Date Recorded Within the past 12 months, y ou worried that your food would run out before you got the money to buy more. Never true 05/22/20 23 Within the past 12 months, t he food you bought just didn't last and you didn't have money to get more. Never true 05/22/2023 Childcare Answer Date Recorded Do you feel overwhelmed with taking care of a child, family member or friend? No 05/22/2023 Does your family need help f inding childcare? (Household - for ages 0-17 years) Not on file 05/22/2023 Clothing Answer Date Recorded Have you been unable to get clothing when it was really needed? No 05/22/2023 Is your family able to get c lothes or diapers when needed? (Household - for ages 0-17 years) Not on file 05/22/2023 Personal Safety Answer Date Recorded Do you feel unsafe or have concerns for your saf ety? No 05/22/2023 Do you have concerns for you r family's safety? (Household - for ages 0-17 years) Not on file 05/22/2023 Utilities Answer Date Recorded Do you have trouble paying y our heating, water, or electric bill? No 05/22/2023 Is your family able to pay t he heat, water, or electric bill? (Household - for ages 0-17 years) Not on file 05/22/2023 Does your family have access to good internet? (Household - for ages 0-17 years) Not on file 05/22/2023 Employment Status Answer Date Recorded Are you unemployed or without regular income? No 05/22/2023 Does the household have a [facility] source [facility] income? (Household - for ages 0-17 years) Not on file 05/22/2023 Social Connections Answer Date Recorded How often do you feel lonely or isolated from th ose around you? Never 05/22/2023 Financial Resource Strain Answer Date R ecorded Do you have any trouble payi ng for your medications, or do you think you might in the future? No 05/22/2023 Does your family have troubl e paying for medicine? (Household - for ages 0-17 years) Not on file 05/22/2023 Transportation Needs Answer Date Record ed READ ONLY Do you have troubl e getting a ride to medical visits or work? Never True 05/22/2023 Does your family have a hard time getting a ride to doctors visits? (Household - for ages 0-17 years) Not on file 05/22/2023 Has lack of transportation k ept you from medical appointments, meetings, work, or from getting things needed for daily living? Check all that apply. (Adult - for ages 18 years and over) Not on file 05/22/2023 Do you (or your family) have trouble finding or paying for a ride (transportation)? (Household - for ages 0-17 years) Not on file 05/22/2023 Housing Stability Answer Date Recorded Do you currently live in a s helter or have no steady place to sleep at night? No 05/22/2023 READ ONLY Do you think you a re at risk of becoming homeless? No 05/22/2023 Does your family worry about paying for your home or becoming homeless? (Household - for ages 0-17 years) Not on file 1 Are you homeless or worried that you might be in the future? (Adult - for ages 18 years and over) Not on file Are you (or your family) jamel eless or worried that you might be in the future? (Household - for ages 0-17 years) Not on file Food Insecurity Answer Date Recorded Do you need food for this week? No 05/22/2023 Are you able to get enough f ood for your family? (Household - for ages 0-17 years) Not on file 05/22/2023 Does your family need food t his week? (Household - for ages 0-17 years) Not on file 05/22/2023 Do you always have enough fo od for your family? 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 Not on file Not on file Not on f ile documented as of this encounter Last Filed Vital Signs Vital Sign Reading Time Taken Comments Blood Pressure 108/60 08/10/2024 11:19 AM EST Pulse 116 08/10/2024 11:19 AM EST Temperature - - Respiratory Rate - - Oxygen Saturation - - Inhaled Oxygen Concentration - - Weight 82.6 kg (182 lb) 08/10/2024 11:19 AM EST Height - - Body Mass Index 31.24 04/20/2024 10:49 AM EDT documented in this encounter Progress Notes * Lorena Jean PA-C - 08/10/2024 12:32 PM EST Cardiology Consultation [facility] [place] 08/10/2024 Re: Chest pain; Abnormal EKG; Possible myocardial infarction on PET CT Provider Requesting Consultation: PCP: ANKUR JASON [address] [place], [place] [address] [address] [phone] History of Present Illness The patient is a 59 year old female, diagnosed with lung cancer with bone metastases, has been undergoing chemotherapy since April. She has completed five cycles, with one remaining, scheduled for August 30. Recently PET scan reportedly indicated a prior myocardial infarction, which was unexpected and confusing for the patient. An echocardiogram performed after the PET scan showed normal LVEF without wall motion abnormalities. However, an EKG done recently showed signs of old inferior WI The patient reports experiencing chest pain, described as a pressure across the chest, typically after chemotherapy treatments. The pain does not radiate to the arms or back, and there are no associated symptoms of shortness of breath or sweating. The patient also reports numbness in the fingers attimes. The chest pain seems to worsen in the days following chemotherapy, gradually improving and often resolving several days after the treatment. The chest pain is non exertional. The patient denies a previous cardiac history. She denies previous myocardial infarction, cardiac catheterization, coronary artery bypass grafting, a history of congestive heart failure, valvular disease or rheumatic fever, or history of arrhythmia. The patient has a history of smoking, having quit in 2000, resumed in 2017, and quit again in 2019.She denies any alcohol intake in the past year. The patient is currently on atorvastatin for cholesterol management. She denies any history of high blood pressure, diabetes, stroke, or blood clots. The patient's cancer diagnosis was initially mistaken for a hiatal hernia. She reports feeling short of breath and needing to sit down frequently, which is a new development since the cancer diagnosis and treatment. The patient also reports a faster heart rate, which she describes as feeling like her heart is overworking. The patient denies family history of heart disease. Review of Systems: All systems reviewed & are unremarkable except as noted in HPI & below Patient Active Problem List Diagnosis History of tobacco abuse GERD (gastroesophageal reflux disease) Mood disorder (HCC) Major depressive disorder, recurrent episode, moderate (HCC) KRYSTA (generalized anxiety disorder) Dermatillomania in adult COPD, group B, by GOLD 2017 classification (HCC) 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) Encounter for antineoplastic chemotherapy Prevention of chemotherapy-induced neutropenia Dehydration Past Surgical History: Procedure Laterality Date ANESTHESIA FOR RELEASE OF LUNG 05/25/2011 right middle lobectomy 05/25/11; also mediastinoscopy ANESTHESIA FOR RELEASE OF LUNG Left 06/13/2014 wedge resection 06/13/14 ANESTHESIA FOR RELEASE OF LUNG Left 01/03/2020 video-assisted thoracoscopic wedge resection BREAST ENHANCEMENT 2002 CARPAL TUNNEL SURGERY Left EGD, FLEXIBLE, DIAGNOSTIC N/A 01/27/2024 large hiatal hernia/ESOPHAGOGASTRODUODENOSCOPY (EGD), FLEXIBLE, TRANSORAL, DIAGNOSTIC performed by Yousif Granger MD at [facility]COPY [facility] EGD, W/ENDOSCOPIC US N/A 04/12/2024 one malignant appearing lymph node lower paraesophageal mediastinum/biopsies show adenocarcinoma/ESOPHAGOGASTRODUODENOSCOPY (EGD), FLEXIBLE, TRANSORAL, ENDOSCOPIC ULTRASOUND performed by Edwina Mclaughlin MD at [facility] INJECTION OF EYE DRUG Right 07/05/2021 # 1 Avastin OD, Dr. Grey INJECTION OF EYE DRUG Right 08/20/2021 # 2 Avastin OD, Dr. Grey INJECTION OF EYE DRUG Right 10/15/2021 # 3 Avastin OD, Dr. Grey INJECTION OF EYE DRUG Right 12/03/2021 # 4 Avastin OD, Dr. Grey INJECTION OF EYE DRUG Right 01/22/2022 # 5 Avastin OD, Dr. Grey INJECTION OF EYE DRUG Right 03/05/2022 # 6 Avastin OD, Dr. Grey INJECTION OF EYE DRUG Right 04/21/2022 # 7 Avastin OD, Dr. Grey INJECTION OF EYE DRUG Right 06/09/2022 # 8 Avastin OD, Dr. Grey INJECTION OF EYE DRUG Right 09/16/2022 # 9 Avastin OD, Dr. Grey INJECTION OF EYE DRUG Right 11/18/2022 # 10 Avastin OD, Dr. Grey INJECTION OF EYE DRUG Right 01/13/2023 # 11 Avastin OD, Dr. Grey INJECTION OF EYE DRUG Right 03/24/2023 # 12 Avastin OD, Dr. Grey INJECTION OF EYE DRUG Right 06/02/2023 # 13 Avastin OD, Dr. Grey INJECTION OF EYE DRUG Right 08/04/2023 # 14 Avastin OD, Dr. Grey INJECTION OF EYE DRUG Right 10/08/2023 # 15 Avastin OD, Dr. Grey INJECTION OF EYE DRUG Right 12/17/2023 # 16 Avastin OD, Dr. Grey INJECTION OF EYE DRUG Right 02/29/2024 #17 Avastin OD, Dr. Grey INJECTION OF EYE DRUG Right 04/26/2024 #18 Avastin OD; Dr Grey INJECTION OF EYE DRUG Right 06/28/2024 #[address] Grey INSER TUNN ACC DEV;5 YRS/OLDER Right 04/20/2024 INSERT TUNNELED CENTRAL VENOUS ACCESS WITH SUBQ PORT performed by Nathan Hardwick MD at OR [facility] IR BIOPSY 04/13/2024 LASER SURGERY OF INNER EYE STRANDS Right OTHER (INFORMATION) ACT 112 SIGNED 07/05/21 DR. GREY OTHER (INFORMATION) Right AVASTIN OD CONSENT DR. GREY/MAYLIN EXP. 07/05/22 OTHER (INFORMATION) Bilateral AVASTIN OU CONSENT DR. GREY/MAYLIN EXP. 09/16/23 OTHER (INFORMATION) CONSENT OU Avastin exp ; Dr Grey/maylin RADIATION THERAPY Right Plaque seed radiation OD history; 3 months Family History: Family History Problem Relation Name Age of Onset Thyroid Disorder Mother Pancreatic cancer Mother No Known Problems Father Other (Pituitary tumor) Brother Tee No Known Problems Brother Nabor No Known Problems Brother Oren Diabetes Grandmother (Maternal) Breast Cancer No significant family history Social History: Social History Tobacco Use Smoking status: Former Current packs/day: 0.00 Average packs/day: 1 pack/day for 35.0 years (35.0 ttl pk-yrs) Types: Cigarettes Start date: 1984 Quit date: 2019 Years since quittin.0 Smokeless tobacco: Never Vaping Use Vaping status: Former Substances: THC, CBD, Flavoring Devices: Disposable Substance Use Topics Alcohol use: Not Currently Drug use: Not Currently Types: Marijuana Comment: As a teenager Allergies: Iodinated contrast media Medications: Current Outpatient Medications Medication Sig Dispense Refill Vitamin D (Cholecalciferol) 50 MCG (2000 UT) Oral Capsule Take by mouth at bedtime. Ferrous Sulfate 325 (65 Fe) MG Oral Tablet (Feosol) Take 1 Tablet by mouth at bedtime. Stiolto Respimat 2.5-2.5 MCG/ACT Inhalation Aerosol Solution (Tiotropium Holley-Olodaterol) Inhale2 Puffs by mouth daily. 12 g 3 Premarin 0.625 MG/GM Vaginal Cream (Estrogens, Conjugated) Administer into the vagina at bedtime . As directed. 42.5 g 5 Atorvastatin Calcium 40 MG Oral Tablet (Lipitor) TAKE 1 TABLET DAILY 90 Tablet 3 CPAP every night at bedtime . Premarin 0.625 MG Oral Tablet Take 1 Tablet by mouth at bedtime. clonazePAM 0.5 MG Oral Tablet (KlonoPIN) Take 1 Tablet by mouth daily as needed for Anxiety. 15 Tablet 1 DULoxetine HCl 30 MG Oral Capsule Delayed Release Particles (Cymbalta) Take 1 Capsule by mouth in the morning. 90 Capsule 0 traZODone HCl 50 MG Oral Tablet (Desyrel) Take 2 Tablets by mouth at bedtime. 180 Tablet 0 Albuterol Sulfate 108 (90 Base) MCG/ACT Inhalation Aerosol Powder Breath Activated Inhale by mouth every 4 hours as needed. Ibuprofen 200 MG Oral Tablet (Motrin) Take 4 Tablets by mouth every 8 hours as needed. Pantoprazole Sodium 40 MG Oral Tablet Delayed Release (Protonix) Take 1 Tablet by mouth 2 times a day 30 minutes before morning and evening meals. 60 Tablet 3 Lactulose 10 GM/15ML Oral Solution (Constulose) Take 30 mL by mouth in the morning and 30 mL beforebedtime. 1992 mL 2 diphenhydrAMINE HCl 25 MG Oral Tablet (Benadryl) Take by mouth 1 Capsule 12 hours prior to paclitaxel infusion. 1 Tablet 0 Famotidine 20 MG Oral Tablet (Pepcid) Take by mouth 1 Tablet 12 hours prior to paclitaxel infusion.1 Tablet 0 Prochlorperazine Maleate 10 MG Oral Tablet (Compazine) Take 1 Tablet by mouth every 6 hours as needed for Nausea. 30 Tablet 5 Loratadine 10 MG Oral Tablet (Claritin) Take 1 tablet x5 days starting the day of chemotherapy 30 Tablet 0 Lidocaine-Prilocaine 2.5-2.5 % External Cream (Emla) APPLY TO SKIN OVER MEDIPORT & COVER 1HR PRIOR TO ACCESSING. 30 g 1 OLANZapine 10 MG Oral Tablet (zyPREXA) Take 1 Tablet by mouth at bedtime. On days 1, 2, 3, and 4 ofchemo. 30 Tablet 0 Allopurinol 100 MG Oral Tablet (Zyloprim) Take 1 Tablet by mouth in the morning. 90 Tablet 1 Ondansetron HCl 8 MG Oral Tablet (Zofran) Take 1 Tablet by mouth every 8 hours as needed for Nausea. 30 Tablet 2 Sulfamethoxazole-Trimethoprim 800-160 MG Oral Tablet (Bactrim DS) Take 1 Tablet by mouth in the morning and 1 Tablet before bedtime. Do all this for 14 days. 28 Tablet 0 oxyCODONE-Acetaminophen 5-325 MG Oral Tablet (Percocet) Take 2 Tablets by mouth every 6 hours as needed for Pain, Moderate. 60 Tablet 0 Metoprolol Succinate ER 25 MG Oral Tablet Extended Release 24 Hour (toPROL XL) Take 0.5 Tablets by mouth in the morning. 30 Tablet 5 Aspirin 81 MG Oral Tablet Delayed Release Take 1 Tablet by mouth in the morning. Current Facility-Administered Medications Medication Dose Route Frequency Provider Last Rate Last Admin bevaCIZumab (Avastin) inj 1.25 mg 1.25 mg Intravitreal PRN Anthony Grey, DO 1.25 mg at 06/28/24 0901 ROPivacaine (Naropin) inj 1.5 mg 1.5 mg Injection PRN Anthoyn Grey, DO 1.5 mg at 901 OBJECTIVE/PHYSICAL EXAMINATION: BP 108/60 | Pulse 116 | Wt 82.6 kg (182 lb) | BMI 31.24 kg/m | BSA 1.93 m General: no acute distress and stated age Eyes: conjunctiva are pink and non-injected, sclera clear Neck: normal jugular venous pulse, no hepatojugular reflux Chest: normal shape and normal respiratory effort Lungs: clear to auscultation and percussion Cardiac Exam: regular, slightly tachycardic. No murmurs, rubs, or gallops Abdomen: abdomen soft, non-tender, no abnormal masses and no hepatosplenomegaly Musculoskeletal: no gait disturbance, no weakness Extremities: no edema and no cyanosis Neuro: grossly normal exam Psych: appropriate affect and insight. Data: EKG performed today and reviewed personally: Sinus tachycardia at 110 bmp Right axis deviation Nonspecific T wave abnormality Compared with prior EKG, criteria for inferior infarct, no longer present T wave inversion no longer evident in inferior leads EKG reviewed from yesterday 08/09/24: Normal sinus rhythm Inferior infarct , age undetermined Abnormal ECG No previous ECGs available Echo report reviewed dated 06/2024: Interpretation Summary There was sinus tachycardia during the examination. The left ventricular cavity size is normal. The LV wall thickness is borderline increased (concentric). The left ventricular wall motion is normal. The global longitudinal strain (GLS) is - 17.4 %. Normal left ventricular systolic function is suggested if GLS is -14% to -30%. The qualitative LV ejection fraction is 55-59% (normal). The left ventricular diastolic function is mildly abnormal (grade I). No significant valvular disease PET CT report reviewed from Jun 2024: IMPRESSION 1. Findings consistent with response to therapy with decreasing size and activity of the esophageal/paraesophageal lesion in the lower thorax, left infrahilar lymph node, left lower lobe nodule, and left paraspinal/costophrenic angle nodule. 2. Multiple previously treated osseous metastatic lesions. The remaining active ones are as detailed below with decreased activity from the previous examination consistent with response to therapy. 3. Diffuse marrow space activity is present, likely secondary to hyperstimulation or rebound effect. 4. There is a twist or spiral of the MediPort catheter within the proximal superior vena cava. Recommend correlation with catheter function. 5. Prior myocardial infarction. Latest Reference Range & Units 10/09/21 11:15 12/18/23 12:43 07/18/24 15:41 Troponin T, High Sensitivity <=14 ng/L <6 <6 BNP, NT-Pro <300 pg/mL <36 50 Triglycerides <=174 mg/dL 94 Cholesterol <200 mg/dL 158 Non-HDL Cholesterol <=159 mg/dL 103 HDL Cholesterol >49 mg/dL 55 LDL Cholesterol <=129 mg/dL 84 Assessment & Plan 59 year old female Chest Pain Intermittent chest pressure post-chemotherapy. No radiation to arms or back, no diaphoresis or significant dyspnea. Symptoms improve between treatments. EKG from yesterday with evidence of old WI. Resolved on EKG today, likely due to lead placement. Recent Echocardiogram showed normal function withEF 55-60%, no wall motion abnormalities. She had recent PET CT that was suggesting old WI per interpretation, specifics unknown. Recommend nuclear stress test to rule out myocardial infarction and myocardial ischemia. - Order nuclear stress test on August 17, 2024 at 10:00 AM - Start metoprolol 12.5 mg daily - Start aspirin 81 mg daily - Provide nuclear stress test instructions - Schedule follow-up based on test results Tachycardia Heart rate elevated to 110 bpm, likely secondary to stress and ongoing cancer treatment. No signs of heart failure or significant cardiac dysfunction on echocardiogram. Discussed starting metoprolol to control heart rate and alleviate symptoms. - Start metoprolol 12.5 mg daily Dyslipidemia -continue statin Lung Cancer with Bone Metastases Undergoing chemotherapy every 21 days since April. One chemotherapy session remaining on 2024. Experiencing fatigue and dyspnea, likely related to cancer and treatment. - Continue current chemotherapy regimen -Avastin on hold currently due to potential for cardiac toxicity. If nuclear stress test is unremarkable, likely can resume. - Monitor and manage side effects symptomatically General Health Maintenance Former smoker, quit in 2019. No alcohol intake in the past year. On atorvastatin for cholesterol management. - Continue atorvastatin Follow-up - Schedule nuclear stress test on August 17, 2024 at 10:00 AM - Follow-up with results of nuclear stress test - Tentative follow-up appointment in a couple of months, to be confirmed based on test results. Patient is being evaluated in the cardiology office for ongoing care/risk management for sinus tach; abnormal EKG. I spent a total of 60 minutes on the date of service in preparation, delivery, and documentation ofthe care provided to Lanny Andrews excluding any time spent in the performance of separately billed services. The patient agrees to the above plan and will call with additional questions or concerns. ER with all emergencies advised. Follow-up: Return in about 2 months (around 10/08/2024). | Check-out note: Schedule nuclear stress test - already confirmed with nuclear - can be done on 08/17/24 at 10:00 - please add to schedule Lorena Jean PA-C Department of Cardiology Text in this note was generated using an ambient documentation service. I discussed the use of a device to record and summarize our discussion today. All persons present during the encounter consented to its use. This chart was completed in part utilizing [employer] Speech Voice Recognition Software. Grammatical errors, random word insertions, prounoun errors, and incomplete sentences are an occasional consequence of this system due to software limitations, ambient noise, and hardware issues. Any formal questions or concerns about the content, text, or information contained within the body of this dictation should be directly addressed to the provider for clarification. documented in this encounter Nursing Notes * Whitney Wood CMA - 08/10/2024 11:18 AM EST Examination Room: 1 Name: Lanny Andrews Date of : (1965) Reason for Visit: new pt Interim Hospitalization(s): none Problems/Concerns: Chest Pain/SOB: chest pain happens after chemo, denied My [facility] is a way you can talk to your provider online through e-mail. Would you like to sign up? I can activate it for you? ALREADY ACTIVE Patient was instructed to not get up on the exam table until directed and assisted by their provider; patient is to remain seated in the chair/ wheelchair/ exam table for fall prevention and safety reasons. Patient is aware to have assistance to step down off exam table with personnel. Patient voiced full comprehension of instructions. documented in this encounter Plan of Treatment Upcoming Encounters Date Type Department Care Team (Late st Contact Info) Description 08/17/2024 10:00 AM EST Imaging [facility] 2nd Floor Cardiology, [place] [address] [facility] [place] [phone] Gw, Excess Time Radiology [address] [place] [id number] 08/30/2024 9:00 AM EST Laboratory Laboratory [facility] [place] [address] [place] [phone] [place], Lab [address]en[address] [place] [address] 08/30/2024 10:00 AM EST Office Visit Hematology/Oncology [facility] [place] [address] [place] [phone] Yoav Schaefer MD [address] [place] [address] 08/30/2024 11:00 AM EST Hem/Onc Treatment Hematology/Oncology Treatment, [place] [address] [place] [phone] [place], Chair 1 Hem Onc Scene [address] [place] [address] 09/06/2024 8:45 AM EST Office Visit Ophthalmology, [facility] [address] [facility] [place] [address] Anthony Grey, DO 132 [facility] [place] [address] 03/10/2025 10:00 AM EDT Office Visit Sleep Disorders Ctr [facility] [address] [facility] [place] [phone] Margie Gutierrez, DO 132 [facility] [place] [address] Scheduled Orders Name Type Priority Associated Diagnoses Orde r Schedule EKG EKG Routine Nonspecific abnormal electrocardiogram (ECG) (EKG) Expected: 08/10/2024 (Approximate), Expires: 09/10/2025 NM MYOCARD PERF IMG SPECT MULT STUDIES WITH PHARM INTERV Cardiology Routine Nonspecific abnormal electrocardiogram (ECG) (EKG) Sinus tachycardia Chest pain, unspecified type 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) Expected: 08/10/2024, Expires: 09/10/2025 Health Maintenance Due Date Last Done Comments Depression Monitoring 1976 HIV Screening 01/11/1979 DTap/Tdap Vaccines (1 - Tdap) 01/11/1983 Pneumococcal Vaccine: 50+ Years (1 of 2 - PCV) 01/11/1983 Zoster Vaccines (1 of 2) 01/11/1983 HPV/Co-Test 01/11/1994 Cologuard 01/11/2009 Colonoscopy 01/11/2009 Colorectal Cancer Screening 01/11/2009 Fecal Occult Blood Test 01/11/2009 Sigmoidoscopy 01/11/2009 COVID-19 Vaccine (2 - Jeffrey risk series) 01/16/2021 12/19/2020 Mammogram 09/22/2023 09/22/2022, 08/22/2021 Cervical Cancer Screening 10/07/2024 Pap Smear 10/07/2024 10/07/2021 O2 ASSESSMENT COMPLETED IN PAST YEAR FOR COPD 04/12/2025 04/12/2024 Lipid Panel 10/09/2026 10/09/2021, 07/09/2021 Diabetes Screening 08/08/2027 08/08/2024, 1 , 07/22/2024, Additional history exists Alpha-1 Antitrypsin Completed 10/09/2021 Influenza Vaccine (FLU shot) Completed 03/2024, 07/18/2021, 07/18/2021 Lung Cancer Screening Completed 07/12/2024 , 03/29/2024, 03/07/2024, Additional history exists HPV (Gardasil) Vaccine Aged Out No lo nger eligible based on patient's age to complete this topic Hepatitis B Vaccine Aged Out No longe r eligible based on patient's age to complete this topic MENINGOCOCCAL (MENACTRA/MENVEO) Aged Out No longer eligible based on patient's age to complete this topic documented as of this encounter Medical Devices Implanted Type Area Wild Life Manager Device Identifier Shelf Expiration Date Model / Serial / Lot Port Implant [id number] Poly Cath - [id number] Implanted:Qty : 1 on 04/20/2024 by Nathan Hardwick MD at [facility] Right: Chest CR BARD : PERIPHERAL VASCULAR [id number] 06/25/2025 [id number] / / [id number] documented as of this encounter Visit Diagnoses Diagnosis Chest pain, unspecified type- Primary Nonspecific abnormal electrocardiogram (ECG) (EKG) Sinus tachycardia Other specified cardiac dysrhythmias 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) Dyslipidemia, goal LDL below 100 Other and unspecified hyperlipidemia documented in this encounter Care Teams Electronic Assembler Relationship Specialty Start Date End Date Ankur Jason DO [address] [place] [address] PCP - General Family Medicine 08/26/22 documented as of this encounter
--- OUTSIDE RECORDS SUMMARY | 2024-08-11 03:24 | External Medical Summary | Summary of Care ---
Author Name Unknown Organization [facility] [address] [address] Phone [phone] Care Team Providers Care Machine Finisher Name Role Phone Richard Marshall DO Primary Care Provider [phone] Encounter Details Date Type Department Care Team (Late st Contact Info) Description 08/09/2024 Result Scan Unspecified Department Yoav Schaefer MD [address] [facility] [place] [phone] <No scans attached> Allergies Active Allergy Reactions Criticality Noted Date Comments Iodinated Contrast Media 07/05/2021 "itchy, rash and hives" CT Scan documented as of this encounter (statuses as of 08/10/2024) Medications Vitamin D (Cholecalciferol) 50 MCG (1999 UT) Oral Capsule Take by mouth at bedtime. Active Ferrous Sulfate 325 (65 Fe) MG Oral Tablet (Feosol) Take 1 Tablet by mouth at bedtime. Active Stiolto Respimat 2.5-2.5 MCG/ACT Inhalation Aerosol Solution (Tiotropium Savery-Olodaterol )Indications:COPD, severity to be determined (HCC) Inhale 2 Puffs by mouth daily. 12 [...] Pain, Moderate. 60 Tablet 08/08/19 25 Active Hospital, Clinic, or Other Facility [...] Active Problems Problem Noted Date Diagnosed Date Dehydration 07/22/2024 Prevention of chemotherapy-induced neutropenia 0 [...] Smoking Tobacco: Former Cigarettes 1 35 1 - 2019 Smokeless Tobacco: Never Alcohol Use Standard [...] No 05/22/2023 Does the household have a re gular source of income? 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 [address] [place] [address] Lorena Jean PA-C [address] [place] [address] 08/30/2024 9:00 AM EST Laboratory Laboratory [facility] [address] [place] [phone] [place], Lab [facility] [address] [facility] [place] [address] 08/30/2024 10:00 AM EST Office Visit Hematology/Oncology [facility] [address] [place] [phone] [facility] [address] [facility] [address] 08/30/2024 11:00 AM EST Hem/Onc Treatment Hematology/Oncology Treatment, [place] [address] [place], [place] [phone] [place], Chair 1 Hem Onc [facility] [address] [facility] [place], [place] [address] 09/06/2024 8:45 AM EST Office Visit Ophthalmology, [facility] [address] [place] [address] Anthony Grey, DO [address] [place] [address] 03/10/2025 10:00 AM EDT Office Visit Sleep Disorders Ctr [facility] [address] [place] [phone] Margie Gutierrez, DO [address] [place] [address] Health Maintenance Due Date Last Done Comments [...] this encounter Medical Devices Implanted Type Area Drop Forger Helper Device Identifier Shelf Expiration Date Model / Serial / Lot Port Implant [id number] Poly Cath - [id number] Implanted:Qty : 1 on 04/20/2024 by Nathan Hardwick MD at [facility] Right: Chest CR BARD : PERIPHERAL VASCULAR [id number] 06/25/2025 [id number] / / [id number] documented as of this encounter Procedures Procedure Name Priority Date/Time Associated Diagnosis Comments EKG SCANNED RESULT 08/09/2024 documented in this encounter Results * EKG SCANNED RESULT (08/09/2024) 08/09/2024 us Yoav Schaefer MD EKG Final Result documented in this encounter Care Teams Machine Finisher Relationship Specialty Start Date End Date Richard Marshall DO [address] [place] [phone] PCP - General Family Medicine 08/26/22 documented as of this encounter
--- OUTSIDE RECORDS SUMMARY | 2024-08-11 03:25 | External Medical Summary | Summary of Care ---
Author Name Unknown Organization [facility] Address [address] [place] [place] [place] [address] Phone [phone] Care Team Providers Care Register Of Wills Name Role Phone Richard Marshall DO Primary Care Provider + [phone] Reason for Visit * Reason Comments Chemotherapy C5 D1 Taxol Carbo * Episode Based Medications (Routine) - Authorized Specialty Diagnoses / Procedures Referred By Contac t Referred To Contact Diagnoses Cancer, metastatic to bone (HCC) 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) Encounter for antineoplastic chemotherapy Prevention of chemotherapy-induced neutropenia Procedures KS CARBOPLATIN INJECTION KS FOSAPREPITANT INJECTION KS INJ., ZIRABEV, 10 MG KS PACLITAXEL INJECTION KS INJECTION, UDENYCA 0.5 MG KS INJ MVASI 10 MG KS INJECTION, Nicole Wise MD Hematology/Oncology Treatment, [address] [address] Phone: tel: fax: Referral ID Status Reason Start Date Expiration Date V isits Requested Visits Authorized [id number] Authorized 05/31/2024 09/24/2024 [id number] Encounter Details Date Type Department Care Team (Latest Contact Info) Description 08/08/2024 10:00 AM EST Hem/Onc Treatment Hematology/Oncolog y Treatment, [address] [address] Shereen, Chair 2 Hem Onc [address] [place] [address] Cancer, metastatic to bone (HCC)*; 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); Encounter for antineoplastic chemotherapy; Prevention of chemotherapy-induced neutropenia Allergies Active Allergy Reactions Criticality Noted Date Comments Iodinated Contrast Media 07/05/2021 "itchy, rash and hives" CT Scan documented as of this encounter (statuses as of 08/08/2024) Medications Vitamin D (Cholecalciferol) 50 MCG (2000 UT) Oral Capsule Take by mouth at bedtime. Active Ferrous Sulfate 325 (65 Fe) MG Oral Tablet (Feosol) Take 1 Tablet by mouth at bedtime. Active Stiolto Respimat 2.5-2.5 MCG/ACT Inhalation Aerosol Solution (Tiotropium Ramer-Olodaterol )Indications:COPD, severity to be determined (HCC) Inhale [...] morning. 90 Tablet 1 07/05/20 24 Active Hospital, Clinic, or Other Facility Administered Medication Ordered Dose Route Frequency Start Date End Date Status bevaCIZumab (Avastin) inj 1.25 mgIndications:Radiation retinopathy, subsequent encounter 1.25 mg IZ PRN 10/08/2023 10/07/2024 Active ROPivacaine (Naropin) inj 1.5 mgIndications:Radiation retinopathy, subsequent encounter 1.5 mg IJ PRN 10/08/2023 10/07/2024 Active documented as of this encounter (statuses as of 08/08/2024) Active Problems Problem Noted Date Diagnosed Date [...] as of this encounter (statuses as of 08/08/2024) Resolved Problems Problem Noted Date Diagnosed Date Resolved Date COPD, group A, by GOLD 2017 classification 07/07/2022 04/07/2024 Overview: Per COPD GOLD Classification COPD, severity to be determined 07/09/2021 07/10/2022 Overview: Per COPD GOLD Classification documented as of this encounter (statuses as of 08/08/2024) Immunizations Name Administration Dates Next Due Covid-19 [...] 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 PIV removed intact. Goals: Patient will remain free from injury Possible barriers to meeting goals: Ambulating with IV pole Stability of the patient: Moderately stable - low risk of patient condition declining or worsening Summary regarding today's goals: Met: Patient remained free from harm. Pt discharged in stable condition. * Roselia Walters RN - 08/08/2024 12:17 PM EST Patient here for treatment after appointment with Mayte. Per Mayte not to use port as it is still red. She is prescribing another antibiotic. Chemotherapy/Immunotherapy agents: CARBOPLATIN and TAXOL Consent for chemotherapy drug treatment complete, dated, and signed? yes, date - 04/18/24 Treatment lab parameters met? Yes Has treatment weight changed > than 10%? No Treatment preauthorized? Yes VITALS Filed Vitals: BP Readings from Last 2 Encounters: 08/08/24 133/87 07/22/24 137/91 Pulse Readings from Last 2 Encounters: 08/08/24 113 07/22/24 129 Resp Readings from Last 2 Encounters: 07/22/24 18 07/19/24 18 SpO2 Readings from Last 2 Encounters: 08/08/24 92% 07/22/24 93% Temp Readings from Last 2 Encounters: 08/08/24 36.8 C (98.2 F) (Tympanic) 07/22/24 37.2 C (99 F) Urine protein: N/A Patient education completed for treatment? Yes Blood transfusion consent signed and complete? NA Return appointment scheduled? Yes Patient had provider visit today? Yes - Ok to release order and treat per provider Functional Status: Functional status at today's visit: Fully active, able to carry on all pre-disease performance without restriction The drug name, dose, infusion volume, rate and route of administration, expiration date and time, appearance and physical integrity of the drug and rate set on the pump and sequencing of drug administration (as applicable) were verified by me and second sign-in RN. Patient was assessed for symptoms or adverse side effects during treatment. Patient Education: Patient instructed on use of heat and massage functions where applicable. Patient shown how to operate the heat function of the chair and to alert nursing staff if the chair feels too warm. Patient instructed on the risk of potential martinez while using the heat function. Safety and Risk for Injury Patient will remain free from injury. Ensure appropriate safety devices are available. Provide and maintain safe environment. documented in this encounter Plan of Treatment Upcoming Encounters Date Type Department Care Team (Late st Contact Info) Description 08/09/2024 3:30 PM EST Immunization/Injecti on Hematology/Oncology Treatment, [place] [address] [facility] [place] [phone] Shereen, Chair 1 Hem Onc [address] [place] [address] 08/10/2024 11:30 AM EST Office Visit Cardiology, [facility] [address] [place] [address] Lorena Jean PA-C [address] [facility] [place] [address] 08/30/2024 9:00 AM EST Laboratory Laboratory [facility] [address] [place] [phone] She[place], Lab [facility] [address] [facility] [place] [address] 08/30/2024 10:00 AM EST Office Visit Hematology/Oncology [facility] [address] [place] [phone] Yoav Schaefer MD [address] [facility] [place] [address] 08/30/2024 11:00 AM EST Hem/Onc Treatment Hematology/Oncology Treatment, [place] [address] [place] [phone] Shereen, Chair 1 Hem Onc [place] [address] [place] [address] 09/06/2024 8:45 AM EST Office Visit Ophthalmology, [facility] [address] [place] [address] Anthony Grey, DO [address] [place] [address] 03/10/2025 10:00 AM EDT Office Visit Sleep Disorders [facility] [address] [place] [phone] Margie Gutierrez, DO [address] [place] [address] Health Maintenance Due Date Last Done Comments [...] this encounter Medical Devices Implanted Type Area Flow Worker Device Identifier Shelf Expiration Date Model / Serial / Lot Port Implant W8f Poly Cath - [id number] Implanted:Qty : 1 on 04/20/2024 by Nathan Hardwick MD at [facility] Right: Chest CR BARD : PERIPHERAL VASCULAR [id number] 06/25/2025 [id number] / / [id number] documented as of this encounter Visit Diagnoses Diagnosis Cancer, metastatic to bone (HCC)- Primary Secondary malignant neoplasm of bone and bone marrow 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) Encounter for antineoplastic chemotherapy Prevention of chemotherapy-induced neutropenia documented in this encounter Administered Medications Active Administered Medications - up to 3 most recent administrations Medication Order MAR Action Action Date Dose Rate Site diphenhydrAMINE (Benadryl) inj 50 mg 50 mg, IV Push, ONCE PRN Other, Hypersensitivity Reaction, Starting on Thu08/08/24 at 1043, Until Thu08/09/24 at 1042, For 24 hoursIndications:Cancer, metastatic to bone (HCC),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),Encounter for antineoplastic chemotherapy,Prevention of chemotherapy-induced neutropenia diphenhydrAMINE (Benadryl) inj 50 mg 50 mg, IV Push, ONCE PRN Other, Hypersensitivity Reaction, Starting on Thu08/08/24 at 1044, Until Thu08/09/24 at 1043, For 24 hoursIndications: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) EPINEPHrine 1 MG/ML inj 0.3 mg 0.3 mg, Intramuscular, ONCE PRN Other, Hypersensitivity Reaction or Anaphylaxis, Starting on Thu08/08/24 at 1043, Until Thu08/09/24 at 1042, For 24 hoursIndications:Cancer, metastatic to bone (HCC),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),Encounter for antineoplastic chemotherapy,Prevention of chemotherapy-induced neutropenia EPINEPHrine 1 MG/ML inj 0.3 mg 0.3 mg, Intramuscular, ONCE PRN Other, Hypersensitivity Reaction or Anaphylaxis, Starting on Thu08/08/24 at 1044, Until Thu08/09/24 at 1043, For 24 hoursIndications: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) hEParin 100 UNIT/ML Lock Flush inj 500 Units 500 Units (5 mL), IV Lock, PRN Other, IV Flush, Starting on Thu08/08/24 at 1043, Until Thu08/09/24 at 1042, For 24 hours, Do not flush if lock, PICC, or central line not in place; IV infusing or unable to flush.Indications:Cancer, metastatic to bone (HCC),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),Encounter for antineoplastic chemotherapy,Prevention of chemotherapy-induced neutropenia hEParin 100 UNIT/ML Lock Flush inj 500 Units 500 Units (5 mL), IV Lock, PRN Other, IV Flush, Starting on Thu08/08/24 at 1044, Until Thu08/09/24 at 1043, For 24 hours, Do not flush if lock, PICC, or central line not in place; IV infusing or unable to flush.Indications: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) Hydrocortisone Sod Suc (PF) (Solu-Cortef) inj 100 mg 100 mg, IV Push, ONCE PRN Other, Hypersensitivity Reaction, Starting on Thu08/08/24 at 1043, Until Thu08/09/24 at 1042, For 24 hoursIndications:Cancer, metastatic to bone (HCC),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),Encounter for antineoplastic chemotherapy,Prevention of chemotherapy-induced neutropenia Hydrocortisone Sod Suc (PF) (Solu-Cortef) inj 100 mg 100 mg, IV Push, ONCE PRN Other, Hypersensitivity Reaction, Starting on Thu08/08/24 at 1044, Until Thu08/09/24 at 1043, For 24 hoursIndications: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) LORAzepam (Ativan) tab 0.5 mg 0.5 mg, Oral, ONCE PRN Anxiety, Nausea, Starting on Thu08/08/24 at 1145, Until DiscontinuedIndications:Cancer, metastatic to bone (HCC),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),Encounter for antineoplastic chemotherapy,Prevention of chemotherapy-induced neutropenia NSS infusion Intravenous, at 50 mL/hr, PRN, Starting on Thu08/08/24 at 1145, Until Discontinued, Maintenance lineIndications:Cancer, metastatic to bone (HCC),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),Encounter for antineoplastic chemotherapy,Prevention of chemotherapy-induced neutropenia Start Infusion 08/08/2024 10:53 AM EST 50 mL/hr NSS infusion 500 mL, Intravenous, at 50 mL/hr, CONTINUOUS, Starting on Thu08/08/24 at 1145, Until Thu08/08/24 at 2144Indications: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) oxygen GAS Inhalation, OXYGEN, First dose on Thu08/08/24 at 1115, Until Discontinued, Device/Managed by: Low Flow Device, Goal SPO2 (%): 91-95, Starting Device: Nasal Cannula, Initial Flow Rate (LPM): 2, Lowest Support: Nasal Cannula: Flow 0-6 LPM. Titrate up/down by 1 LPM., Higher Support: Non-Rebreather (NRB) Mask: Minimum of 10 LPM. Titrate to maintain bag inflation., Titration Interval: Q2 minutes and as needed., Notify Provider: For sudden DECREASE in resting SPO2 to less than 85% and when escalating delivery device., Wean patient off Oxygen when the oxygen saturation is greater than or equal to 93%Indications:Cancer, metastatic to bone (HCC),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),Encounter for antineoplastic chemotherapy,Prevention of chemotherapy-induced neutropenia oxygen GAS Inhalation, OXYGEN, First dose on Thu08/08/24 at 1115, Until Discontinued, Device/Managed by: Low Flow Device, Goal SPO2 (%): 91-95, Starting Device: Nasal Cannula, Initial Flow Rate (LPM): 2, Lowest Support: Nasal Cannula: Flow 0-6 LPM. Titrate up/down by 1 LPM., Higher Support: Non-Rebreather (NRB) Mask: Minimum of 10 LPM. Titrate to maintain bag inflation., Titration Interval: Q2 minutes and as needed., Notify Provider: For sudden DECREASE in resting SPO2 to less than 85% and when escalating delivery device., Wean patient off Oxygen when the oxygen saturation is greater than or equal to 93%Indications: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) sodium chloride 0.9 % flush central line 10 mL 10 mL, IV Push, PRN Other, IV Flush, Starting on Thu08/08/24 at 1043, Until Thu08/09/24 at 1042, For 24 hours, Do not flush if lock, PICC, or central line not in place; IV infusing or unable to flush.Indications:Cancer, metastatic to bone (HCC),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),Encounter for antineoplastic chemotherapy,Prevention of chemotherapy-induced neutropenia sodium chloride 0.9 % flush central line 10 mL 10 mL, IV Push, PRN Other, IV Flush, Starting on Thu08/08/24 at 1044, Until Thu08/09/24 at 1043, For 24 hours, Do not flush if lock, PICC, or central line not in place; IV infusing or unable to flush.Indications: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) Inactive Administered Medications - up to 3 most recent administrations Medication Order MAR Action Action Date Dose Rate Site CARBOplatin (Paraplatin) 744 mg in D5W 250 mL infusion 744 mg (Target AUC = 6), IV Piggyback, at 510 mL/hr Administer over 30 Minutes, PROTECT FROM LIGHT, ONCE, 1 dose, On Thu08/08/24 at 1215Indications:Cancer, metastatic to bone (HCC),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),Encounter for antineoplastic chemotherapy,Prevention of chemotherapy-induced neutropenia Start Infusion 08/08/2024 3:00 PM EST 744 mg 510 mL/hr diphenhydrAMINE (Benadryl) cap 50 mg 50 mg, Oral, ONCE, On Thu08/08/24 at 1145, For 1 doseIndications:Cancer, metastatic to bone (HCC),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),Encounter for antineoplastic chemotherapy,Prevention of chemotherapy-induced neutropenia Given 08/08/2024 11:01 AM EST 50 mg Famotidine (Pepcid) tab 20 mg 20 mg, Oral, ONCE, On Thu08/08/24 at 1145, For 1 doseIndications:Cancer, metastatic to bone (HCC),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),Encounter for antineoplastic chemotherapy,Prevention of chemotherapy-induced neutropenia Given 08/08/2024 11:01 AM EST 20 mg Fosaprepitant Dimeglumine (Emend) 150 mg, ondansetron (Zofran) 16 mg, dexamethasone sodium phosphate 12 mg in NSS 250 mL Infusion 150 mg, IV Piggyback, ONCE, 1 dose, On Thu08/08/24 at 1145, Administer over 30 Minutes, Infuse over 30 minutes. Give 30 minutes prior to chemotherapy.Indications:Ca ncer, metastatic to bone (HCC),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),Encounter for antineoplastic chemotherapy,Prevention of chemotherapy-induced neutropenia Start Infusion 08/08/2024 11:01 AM EST 150 mg 538.4 mL/hr PACLitaxel (Taxol) 368 mg in NSS 500 mL infusion 368 mg (200 mg/m2 1.84 m2 Treatment Plan BSA from Recorded weight), IV Piggyback, ONCE, 1 dose, On Thu08/08/24 at 1215, Administer over 180 Minutes, Administer through 0.22 micron low protein binding filter!Indications:Cancer, metastatic to bone (HCC),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),Encounter for antineoplastic chemotherapy,Prevention of chemotherapy-induced neutropenia Start Infusion 08/08/2024 11:58 AM EST 368 mg 170 mL/hr Zoledronic Acid (Zometa) 4 mg in 100 mL PREMIX ivpb 4 mg, IV Piggyback, ONCE, 1 dose, On Thu08/08/24 at 1145Indications: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) Start Infusion 08/08/2024 11:38 AM EST 4 mg 400 mL/hr documented in this encounter Care Teams Register Of Wills Relationship Specialty Start Date End Date Richard Marshall DO [address] [place] [address] [phone] PCP - General Family Medicine 08/26/22 documented as of this encounter
--- OUTSIDE RECORDS SUMMARY | 2024-08-11 03:25 | External Medical Summary | Summary of Care ---
Author Name Unknown Organization [facility] Address [address] [facility] [address] Phone [phone] Care Team Providers Care Avionics Systems Repairer Name Role Phone Richard Marshall DO Primary Care Provider + [phone] Reason for Visit * Reason Comments Chemotherapy TAXOL/CARBO Nurse Documentation Hold MVASI * Episode Based Medications (Routine) - Authorized Specialty Diagnoses / Procedures Referred By Contac t Referred To Contact Diagnoses Cancer, metastatic to bone (HCC) 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) Encounter for antineoplastic chemotherapy Prevention of chemotherapy-induced neutropenia Procedures NE CARBOPLATIN INJECTION NE FOSAPREPITANT INJECTION NE INJ., ZIRABEV, 10 MG NE PACLITAXEL INJECTION NE INJECTION, UDENYCA 0.5 MG NE INJ MVASI 10 MG NE INJECTION, Nicole Wise MD Hematology/Oncology Treatment, [address] [address] Phone: tel: fax: Referral ID Status Reason Start Date Expiration Date V isits Requested Visits Authorized [id number] Authorized 05/31/2024 09/24/2024 [id number] Encounter Details Date Type Department Care Team (Latest Contact Info) Description 07/18/2024 10:00 AM EST Hem/Onc Treatment Hematology/Oncolog y Treatment, [address] [place] [address] Shereen, Chair 3 Hem Onc [address] [place] [address] Cancer, metastatic to bone (HCC)*; 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); Encounter for antineoplastic chemotherapy; Prevention of chemotherapy-induced neutropenia Allergies Active Allergy Reactions Criticality Noted Date Comments Iodinated Contrast Media 07/05/2021 "itchy, rash and hives" CT Scan documented as of this encounter (statuses as of 08/04/2024) Medications Vitamin D (Cholecalciferol) 50 MCG (1999 UT) Oral Capsule Take by mouth at bedtime. Active Ferrous Sulfate 325 (65 Fe) MG Oral Tablet (Feosol) Take 1 Tablet by mouth at bedtime. Active Stiolto Respimat 2.5-2.5 MCG/ACT Inhalation Aerosol Solution (Tiotropium [place]-Olodaterol )Indications:COPD, severity to be determined (HCC) Inhale [...] ACCESSING. 30 g 1 05/12/20 24 Active Cephalexin 500 MG Oral Capsule (Keflex)Indication s: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),Prevention of chemotherapy-induc ed neutropenia Take 1 Capsule by mouth in the morning and 1 Capsule at noon and 1 Capsule in the evening and 1 Capsule before bedtime. 40 Capsule 06/07/20 24 Active OLANZapine 10 MG Oral Tablet [...] as of this encounter (statuses as of 08/04/2024) Active Problems Problem Noted Date Diagnosed Date Prevention of chemotherapy-induced neutropenia 0 04/22/2024 Lung [...] as of this encounter (statuses as of 08/04/2024) Resolved Problems Problem Noted Date Diagnosed Date Resolved Date COPD, group A, by GOLD 2017 classification 07/07/2022 04/07/2024 Overview: Per COPD GOLD Classification COPD, severity to be determined 07/09/2021 07/10/2022 Overview: Per COPD GOLD Classification documented as of this encounter (statuses as of 08/04/2024) Immunizations Name Administration Dates Next Due Covid-19 Ad26, Single Dose (Jeffrey/J&J) 021 Seasonal Influenza, PF, 6 M & above, IM , (FluLaval or Fluzone) 07/18/2021 Seasonal Influenza, Trivalent, (IIV3), PF, (Fluz one) 04/04/2024 documented as of this encounter Social History Tobacco Use Types Packs/Day Years Used Date Smoking Tobacco: Former Cigarettes 1 35 1 5 - 2019 Smokeless Tobacco: Never Alcohol Use [...] 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 VAD flushed with 10 ml NSS and Heparin 5 ml (100 units/ml). [place]aca needle removed intact. Goals: Pt will remain free from injury. Possible barriers to meeting goals: ambulation with IV pole Stability of the patient: Moderately stable - low risk of patient condition declining or worsening Summary regarding today's goals: Met: . Pt remained free from injury during treatment today. Discharged in stable condition. * Melanie Mendieta RN - 07/18/2024 10:47 AM EST Chair 12 Chemotherapy/Immunotherapy agents: CARBOPLATIN and TAXOL Consent for chemotherapy drug treatment complete, dated, and signed? yes, date - 04/18/24 Treatment lab parameters met? Yes Has treatment weight changed > than 10%? No Treatment preauthorized? Yes VITALS Filed Vitals: BP Readings from Last 2 Encounters: 07/18/24 112/79 07/07/24 122/80 Pulse Readings from Last 2 Encounters: 07/18/24 82 07/07/24 100 Resp Readings from Last 2 Encounters: 05/16/24 16 04/20/24 16 SpO2 Readings from Last 2 Encounters: 07/18/24 91% 07/07/24 94% Temp Readings from Last 2 Encounters: 07/18/24 36.6 C (97.8 F) (Tympanic) 07/07/24 36.9 C (98.4 F) (Tympanic) Urine protein: N/A Patient education completed for treatment? Yes Blood transfusion consent signed and complete? NA Return appointment scheduled? Yes Patient had provider visit today? Yes - Ok to release order and treat per provider VAD accessed; NSS infusing. Safety and Risk for Injury Patient will remain free from injury. Ensure appropriate safety devices are available. Provide and maintain safe environment. Functional Status: Functional status at today's visit: Restricted in physically strenuous activity but ambulatory and able to carry out work on a light orsedentary nature, e.g. light house work, office work The drug name, dose, infusion volume, rate [...] potential martinez while using the heat function. documented in this encounter Plan of Treatment Upcoming Encounters Date Type Department Care Team (Late st Contact Info) Description 08/08/2024 9:00 AM EST Laboratory Laboratory [facility] [address] [place] [phone] [place], Lab [facility] [address] [facility] [place] [address] 08/08/2024 9:30 AM EST Office Visit Hematology/Oncology [facility] [place] [phone] Mayte Tatum CRNP [address] [place] [address] [place] [address] 08/08/2024 10:00 AM EST Hem/Onc Treatment Hematology/Oncology Treatment, [place] [address] [place] [phone] Shereen, Chair 2 Hem Onc [facility] 200 [facility] [place] [address] 08/30/2024 9:00 AM EST Laboratory Laboratory [facility] [address] [place] [phone] Shereen, Lab [address] [place] [address] 08/30/2024 10:00 AM EST Office Visit Hematology/Oncology [facility] [place] [address] [place], [place] [phone] Yoav Schaefer MD [address] [place] [address] 08/30/2024 11:00 AM EST Hem/Onc Treatment Hematology/Oncology Treatment, [place] [address] [place], [place] [phone] Shereen, Chair 1 Hem Onc [address] [place], [place] [address] 09/06/2024 8:45 AM EST Office Visit Ophthalmology, [facility] [address] [place] [address] Anthony Grey, DO [address] [place] [address] 03/10/2025 10:00 AM EDT Office Visit Sleep Disorders Ctr [facility] [address] [place] [phone] Margie Gutierrez, DO [address] [place] [address] Health Maintenance Due Date Last Done Comments [...] Lipid Panel 10/09/2026 10/09/2021, 07/09/2021 Diabetes Screening 07/25/2027 07/25/2024, 1 09/22/2023, 07/18/2024, Additional history exists Alpha-1 Antitrypsin Completed 10/09/2021 [...] this encounter Medical Devices Implanted Type Area Custodial Aide Device Identifier Shelf Expiration Date Model / Serial / Lot Port Implant W8f Poly Cath - [id number] Implanted:Qty : 1 on 04/20/2024 by Nathan Hardwick MD at [facility] Right: Chest CR BARD : PERIPHERAL VASCULAR [id number] 06/25/2025 [id number] / / [id number] documented as of this encounter Procedures Procedure Name Priority Date/Time Associated Diagnosis Comments TROPONIN T, HIGH SENSITIVITY Routine 07/18/2024 3:41 PM EST 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) BNP (NT-PROBNP) Routine 07/18/2024 3:41 PM EST 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) documented in this encounter Results * BNP, NT-PRO (07/18/2024 3:41 PM EST) BNP, NT-Pro 50 <300 pg/mL 07/19/2024 2:08 AM EST [facility] Blood Venous blood specimen / Unknown Venipuncture / Unknown 07/18/2024 3:41 PM EST 07/18/2024 3:41 PM EST Narrative [facility] - 07/19/2024 2:08 AM EST Exclude Heart Failure: <300 pg/mL Diagnose Heart Failure: Age <50 yr: >450 pg/mL 50-75 yr: >900 pg/mL >75 yr: >1800 pg/mL GFR is 30-59 mL/min: >1200 pg/mL or Age-adjusted values GFR <30 mL/min: do not use, not reliable Prognostic threshold: 1000 pg/mL us Nicole Vinson MD LAB BLOOD OR DERABLES Final Result Performing Organization Address City/State/[facility] Co de Phone Number LABORATORY [address] [address] * TROPONIN T, HIGH SENSITIVITY (07/18/2024 3:41 PM EST) Pathologist [facility] Troponin T, High Sensitivity <6 <=14 ng/L 07/18/2024 10:30 PM EST [facility] Blood Venous blood specimen / Unknown Venipuncture / Unknown 07/18/2024 3:41 PM EST 07/18/2024 3:41 PM EST us Nicole Vinson MD LAB BLOOD OR DERABLES Final Result [address] [address] documented in this encounter Visit Diagnoses Diagnosis Cancer, metastatic to bone (HCC)- Primary Secondary malignant neoplasm of bone and bone marrow 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) Encounter for antineoplastic chemotherapy Prevention of chemotherapy-induced neutropenia documented in this encounter Administered Medications Inactive Administered Medications - up to 3 most recent administrations Medication Order MAR Action Action Date Dose Rate Site CARBOplatin (Paraplatin) 744 mg in D5W 250 mL infusion 744 mg (Target AUC = 6), IV Piggyback, at 510 mL/hr Administer over 30 Minutes, PROTECT FROM LIGHT, ONCE, 1 dose, On Thu07/18/24 at 1215Indications:Cancer, metastatic to bone (HCC),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),Encounter for antineoplastic chemotherapy,Prevention of chemotherapy-induced neutropenia Start Infusion 07/18/2024 3:04 PM EST 744 mg 510 mL/hr diphenhydrAMINE (Benadryl) cap 50 mg 50 mg, Oral, ONCE, On Thu07/18/24 at 1145, For 1 doseIndications:Cancer, metastatic to bone (HCC),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),Encounter for antineoplastic chemotherapy,Prevention of chemotherapy-induced neutropenia Given 07/18/2024 10:53 AM EST 50 mg Famotidine (Pepcid) tab 20 mg 20 mg, Oral, ONCE, On Thu07/18/24 at 1145, For 1 doseIndications:Cancer, metastatic to bone (HCC),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),Encounter for antineoplastic chemotherapy,Prevention of chemotherapy-induced neutropenia Given 07/18/2024 10:53 AM EST 20 mg Fosaprepitant Dimeglumine (Emend) 150 mg, ondansetron (Zofran) 16 mg, dexamethasone sodium phosphate 12 mg in NSS 250 mL Infusion 150 mg, IV Piggyback, ONCE, 1 dose, On Thu07/18/24 at 1145, Administer over 30 Minutes, Infuse over 30 minutes. Give 30 minutes prior to chemotherapy.Indications:C ancer, metastatic to bone (HCC),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),Encounter for antineoplastic chemotherapy,Prevention of chemotherapy-induced neutropenia Start Infusion 07/18/2024 10:55 AM EST 150 mg 538.4 mL/hr hEParin 100 UNIT/ML Lock Flush inj 500 Units 500 Units (5 mL), IV Lock, PRN Other, IV Flush, Starting on Thu07/18/24 at 1041, Until Thu07/18/24 at 2001, For 24 hours, Do not flush if lock, PICC, or central line not in place; IV infusing or unable to flush.Indications:Cancer, metastatic to bone (HCC),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),Encounter for antineoplastic chemotherapy,Prevention of chemotherapy-induced neutropenia Given 07/18/2024 3:40 PM EST 500 Units NSS infusion Intravenous, at 50 mL/hr, PRN, Starting on Thu07/18/24 at 1145, Until Thu07/18/24 at 2000, Maintenance lineIndications:Cancer, metastatic to bone (HCC),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),Encounter for antineoplastic chemotherapy,Prevention of chemotherapy-induced neutropenia Start Infusion 07/18/2024 10:42 AM EST 50 mL/hr PACLitaxel (Taxol) 368 mg in NSS 500 mL infusion 368 mg (200 mg/m2 1.84 m2 Treatment Plan BSA from Recorded weight), IV Piggyback, ONCE, 1 dose, On Thu07/18/24 at 1215, Administer over 180 Minutes, Administer through 0.22 micron low protein binding filter!Indications:Cancer, metastatic to bone (HCC),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),Encounter for antineoplastic chemotherapy,Prevention of chemotherapy-induced neutropenia Restarted 07/18/2024 11:55 AM EST 170 mL/hr Start Infusion 07/18/2024 11:44 AM EST 368 mg 170 mL/h r sodium chloride 0.9 % flush central line 10 mL 10 mL, IV Push, PRN Other, IV Flush, Starting on Thu07/18/24 at 1041, Until Thu07/18/24 at 2000, For 24 hours, Do not flush if lock, PICC, or central line not in place; IV infusing or unable to flush.Indications:Cancer, metastatic to bone (HCC),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),Encounter for antineoplastic chemotherapy,Prevention of chemotherapy-induced neutropenia Given 07/18/2024 3:40 PM EST 10 mL documented in this encounter Care Teams Avionics Systems Repairer Relationship Specialty Start Date End Date Richard Masrhall DO [address] [place] [address] [place] [id number] PCP - General Family Medicine 08/26/22 documented as of this encounter
--- OUTSIDE RECORDS SUMMARY | 2024-08-11 03:25 | External Medical Summary | Summary of Care ---
Author Name Unknown Organization [facility] Address [address] [facility] [place] [address] Phone [phone] Care Team Providers Care Developmental Writing Instructor Name Role Phone Richard Marshall DO Primary Care Provider [phone] Encounter Details Date Type Department Care Team (Late st Contact Info) Description 07/18/2024 Telephone Hematology/Oncology [facility] Shereen [place] [address] [facility] [address] Nicole Vinson MD Allergies Active Allergy Reactions Criticality Noted Date Comments Iodinated Contrast Media 07/05/2021 "itchy, rash and hives" CT Scan documented as of this encounter (statuses as of 08/08/2024) Medications Vitamin D (Cholecalciferol) 50 MCG (1999 UT) Oral Capsule Take by mouth at bedtime. Active Ferrous Sulfate 325 (65 Fe) MG Oral Tablet (Feosol) Take 1 Tablet by mouth at bedtime. Active Stiolto Respimat 2.5-2.5 MCG/ACT Inhalation Aerosol Solution (Tiotropium [place]-Olodaterol )Indications:COPD, severity to be determined (HCC) Inhale [...] morning. 90 Tablet 1 07/05/20 24 Active oxyCODONE HCl ER 40 MG Oral Tablet ER 12 Hour Abuse-Deterrent (OxyCONTIN)Indicat ions: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),Recurrent adenocarcinoma of lung, unspecified laterality (HCC),Pain from bone metastases (HCC),Cancer, metastatic to bone (HCC),Lesion of thoracic vertebra,Drug-philipp sirisha constipation Take 1 Tablet by mouth in the morning and 1 Tablet before bedtime. 60 Tablet 07/18/20 24 Active Additional Information Patient not taking.Reported on 08/08/2024 oxyCODONE-Acetamin ophen 5-325 MG Oral Tablet (Percocet)Indicati ons: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) Take 2 Tablets by mouth every 6 hours as needed for Pain, Moderate. 60 Tablet 07/18/20 24 Active dexAMETHasone 1.5 MG Oral TabletIndications: 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) Take 1 Tablet by mouth daily for 7 days, THEN 0.5 Tablets daily for 7 days, THEN 0.25 Tablets daily for 7 days. 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 * Telephone Encounter - Mayte Quiroga RN - 07/28/2024 11:03 AM EST Conversion complete. Please schedule and remove hold. * Telephone Encounter - David Dickson OSA - 07/22/2024 12:20 PM EST Mayte, I called patient, and she accepted 08/10/24, with Lorena, at 1130 am. * Telephone Encounter - Mayte Quiroga RN - 07/22/2024 11:51 AM EST Acceptable to offer close in new [facility] or for sooner evaluation per request. Please route back with date/time confirmed. * Telephone Encounter - David Dickson OSA - 07/21/2024 8:01 AM EST Mayte, This patient would be new to the office, May I offer a sooner appointment here at , thank you. * Telephone Encounter - Whit Maritnez RN - 07/21/2024 7:25 AM EST Echo 07/25/24. Cardiology appt 09/19/24. Cardiology: clearance is needed prior to patient resuming bevacizumab due to prior SC noted on 07/12/24 PET. Can this appt please be moved up? * Telephone Encounter - David Burton, DAVID - 07/18/2024 10:[address] Vinson Alt today "HOLD AVASTIN UNTIL CLEARED BY CARDIOLOGY " Cardiology referral and Echo referral placed today. documented in this encounter Plan of Treatment Upcoming Encounters Date Type Department Care Team (Late st Contact Info) Description 08/08/2024 9:30 AM EST Office Visit Hematology/Oncolog y [facility] Shereen [place] [address] [facility] [place] [phone] Mayte Tatum CRNP [address] [place] [phone] PENDING VISIT DRAFT 08/08/2024 10:00 AM EST Hem/Onc Treatment Hematology/Oncolog y Treatment, [place] [address] [place] [phone] Shereen, Chair 2 Hem Onc [facility] 200 [facility] [place], [place] [address] Arrived 08/30/2024 9:00 AM EST Laboratory Laboratory [facility] Shereen [place] [address] [place] [phone] Shereen, Lab [facility] [address] [facility] [place] [address] 08/30/2024 10:00 AM EST Office Visit Hematology/Oncolog y [facility] Shereen [place] [address] [place] [phone] Yoav Schaefer MD [address] [place] [address] 08/30/2024 11:00 AM EST Hem/Onc Treatment Hematology/Oncolog y Treatment, [place] [address] [place] [phone] [place], Chair 1 Hem Onc [address] [place] [address] 09/06/2024 8:45 AM EST Office Visit Ophthalmology, [facility] [address] [place] [address] Anthony Grey, DO [address] [place] [address] 03/10/2025 10:00 AM EDT Office Visit Sleep Disorders Ctr [facility] [address] [place] [phone] Margie Gutierrez, DO [address] [place] [address] Health Maintenance Due Date Last Done Comments [...] this encounter Medical Devices Implanted Type Area Publishing Systems Analyst Device Identifier Shelf Expiration Date Model / Serial / Lot Port Implant W8f Poly Cath - [id number] Implanted:Qty : 1 on 04/20/2024 by Nathan Hardwick MD at OR [facility] Right: Chest CR BARD : PERIPHERAL VASCULAR [id number] 06/25/2025 [id number] / / [id number] documented as of this encounter Care Teams Developmental Writing Instructor Relationship Specialty Start Date End Date Richard Marshall DO [address] [place], [place] [id number] PCP - General Family Medicine 08/26/22 documented as of this encounter
--- OUTSIDE RECORDS SUMMARY | 2024-08-11 03:25 | External Medical Summary ---
Author Name Unknown Address Unknown Organization K09[facility] [address] Laboratory Report Ordering Provider Test Date Status BERNICE PARKER 08/08/2024 09:05:19 Final Observation Date Value Abnormality Reference (Units ) Status Phosphate 08/08/2024 09:05:19 3.0 2.5-4.8 (m g/dL) Final Performing Location [facility] [place] [address]
--- OUTSIDE RECORDS SUMMARY | 2024-08-11 03:25 | External Medical Summary | Summary of Care ---
Author Name Unknown Organization [facility] Address [address] [facility] [address] Phone [phone] Care Team Providers Care Title Checker Name Role Phone Richard Marshall DO Primary Care Provider + [phone] Reason for Visit * Reason Comments Medication Administration Fulphila * Episode Based Medications (Routine) - Authorized Specialty Diagnoses / Procedures Referred By Contac t Referred To Contact Diagnoses Cancer, metastatic to bone (HCC) 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) Encounter for antineoplastic chemotherapy Prevention of chemotherapy-induced neutropenia Procedures NV CARBOPLATIN INJECTION NV FOSAPREPITANT INJECTION NV INJ., ZIRABEV, 10 MG NV PACLITAXEL INJECTION NV INJECTION, UDENYCA 0.5 MG NV INJ MVASI 10 MG NV INJECTION, Nicole Wise MD Hematology/Oncology Treatment, [address] [address] Phone: tel: fax: Referral ID Status Reason Start Date Expiration Date V isits Requested Visits Authorized [id number] Authorized 05/31/2024 09/24/2024 [id number] Encounter Details Date Type Department Care Team (Latest Contact Info) Description 08/09/2024 3:30 PM EST Immunization/ Injection Hematology/Oncology Treatment, [address] [phone] Shereen, Chair 1 Hem Onc [address] [address] Cancer, metastatic to bone (HCC)*; 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); Encounter for antineoplastic chemotherapy; Prevention of chemotherapy-induced neutropenia Allergies Active Allergy Reactions Criticality Noted Date Comments Iodinated Contrast Media 07/05/2021 "itchy, rash and hives" CT Scan documented as of this encounter (statuses as of 08/09/2024) Medications Vitamin D (Cholecalciferol) 50 MCG (2000 UT) Oral Capsule Take by mouth at bedtime. Active Ferrous Sulfate 325 (65 Fe) MG Oral Tablet (Feosol) Take 1 Tablet by mouth at bedtime. Active Stiolto Respimat 2.5-2.5 MCG/ACT Inhalation Aerosol Solution (Tiotropium [place]-Olodaterol )Indications:COPD, severity to be determined (HCC) Inhale [...] as of this encounter (statuses as of 08/09/2024) Active Problems Problem Noted Date Diagnosed Date [...] as of this encounter (statuses as of 08/09/2024) Resolved Problems Problem Noted Date Diagnosed Date Resolved Date COPD, group A, by GOLD 2017 classification 07/07/2022 04/07/2024 Overview: Per COPD GOLD Classification COPD, severity to be determined 07/09/2021 07/10/2022 Overview: Per COPD GOLD Classification documented as of this encounter (statuses as of 08/09/2024) Immunizations Name Administration Dates Next Due Covid-19 [...] 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 Discussed with Dr. Schaefer, EKG obtained. He reviewed EKG and advised patient to keep appointment with cardiology tomorrow and send a message to Hem/onc after appointment. Advised patient ifsymptoms worsen to call in to hem/onc and they will advise. Fulphila injection given and patient discharged, verbalizing understanding of above instructions. documented in this encounter Plan of Treatment Upcoming Encounters Date Type Department Care Team (Late st Contact Info) Description 08/10/2024 11:30 AM EST Office Visit Cardiology, [facility] [address] [place] [address] Lorena Jean PA-C [address] [place] [address] 08/30/2024 9:00 AM EST Laboratory Laboratory [facility] [address] [place] [phone] [place], Lab [facility] [place] [address] 08/30/2024 10:00 AM EST Office Visit Hematology/Oncology [facility] [address] [facility] [phone] Yo[facility] [address] 08/30/2024 11:00 AM EST [facility] [address] [place], [place] [phone] Shereen, Chair 1 Hem Onc [facility] [address] [facility], [place] [address] 09/06/2024 8:45 AM EST Office Visit Ophthalmology, [facility] [address] [place] [address] Anthony Grey, DO [address] [place] [address] 03/10/2025 10:00 AM EDT Office Visit Sleep Disorders Ctr [facility] [address] [place] [phone] Margie Gutierrez, DO [address] [place] [address] Scheduled Orders Name Type Priority Associated Diagnoses Orde r Schedule EKG EKG Routine Cancer, metastatic to bone (HCC) 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) Encounter for antineoplastic chemotherapy Expected: 08/09/2024 (Approximate), Expires: 09/09/2025 Health Maintenance Due Date Last Done Comments [...] this encounter Medical Devices Implanted Type Area Human Services Program Specialist Device Identifier Shelf Expiration Date Model / Serial / Lot Port Implant W8f Poly Cath - [id number] Implanted:Qty : 1 on 04/20/2024 by Nathan Hardwick MD at [facility] Right: Chest CR BARD : PERIPHERAL VASCULAR [id number] 06/25/2025 [id number] / / [id number] documented as of this encounter Visit Diagnoses Diagnosis Cancer, metastatic to bone (HCC)- Primary Secondary malignant neoplasm of bone and bone marrow 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) Encounter for antineoplastic chemotherapy Prevention of chemotherapy-induced neutropenia documented in this encounter Administered Medications Inactive Administered Medications - up to 3 most recent administrations Medication Order MAR Action Action Date Dose Rate Site Pegfilgrastim-jmdb (Fulphila) inj 6 mg 6 mg, Subcutaneous, ONCE, On Thu08/09/24 at 1615, For 1 doseIndications:Cancer, metastatic to bone (HCC),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),Encounter for antineoplastic chemotherapy,Prevention of chemotherapy-induced neutropenia Given 08/09/2024 3:34 PM EST 6 mg Arm Right Upper documented in this encounter Care Teams Title Checker Relationship Specialty Start Date End Date Richard Marshall DO [address] [place], [place] [phone] PCP - General Family Medicine 08/26/22 documented as of this encounter
--- OUTSIDE RECORDS SUMMARY | 2024-08-11 03:25 | External Medical Summary | Summary of Care ---
Author Name Unknown Organization [facility] Address [address] [place] [address] Phone [phone] Care Team Providers Care House Cleaner Name Role Phone Richard Marshall DO Primary Care Provider + [phone] Reason for Visit * Reason Comments Outpatient Testing Encounter Details Date Type Department Care Team (Late st Contact Info) Description 08/08/2024 9:00 AM EST Laboratory Laboratory [facility] [address] [place] [phone] [facility] [address] [place] [address] 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) Allergies Active Allergy Reactions Criticality Noted Date Comments Iodinated Contrast Media 07/05/2021 "itchy, rash and hives" CT Scan documented as of this encounter (statuses as of 08/08/2024) Medications Vitamin D (Cholecalciferol) 50 MCG (1999) Oral Capsule Take by mouth at bedtime. Active Ferrous Sulfate 325 (65 Fe) MG Oral Tablet (Feosol) Take 1 Tablet by mouth at bedtime. Active Stiolto Respimat 2.5-2.5 MCG/ACT Inhalation Aerosol Solution (Tiotropium [place]-Olodaterol )Indications:COPD, severity to be determined ([facility]) Inhale 2 Puffs by mouth daily. [...] before bedtime. 60 Tablet 07/18/20 24 Active oxyCODONE-Acetamin ophen 5-325 MG Oral Tablet [...] days. 13 Tablet 07/18/20 24 025 Active Cephalexin 500 MG Oral Capsule (Keflex)Indication s: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),Port or reservoir infection, initial encounter Take 1 Capsule by mouth in the morning and 1 Capsule at noon and 1 Capsule in the evening and 1 Capsule before bedtime. 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 on file Not on f ile documented as of this encounter Plan of Treatment Upcoming Encounters Date Type Department Care Team (Late st Contact Info) Description 08/08/2024 9:30 AM EST Office Visit Hematology/Oncolog y [facility] [place] [address] [place] [phone] Mayte Tatum CRNP [address] [place] [address] PENDING VISIT DRAFT 08/08/2024 10:00 AM EST Hem/Onc Treatment Hematology/Oncolog y Treatment, [place] [address] [place] [phone] Shereen, Chair 2 Hem Onc [facility] [address] [place] [address] Arrived 08/30/2024 9:00 AM EST Laboratory Laboratory [facility] [place] [address] [place] [phone] Shereen Lab [address] [place] [address] 08/30/2024 10:00 AM EST Office Visit Hematology/Oncolog y [facility] [place] [address] [place] [phone] Yoav Schaefer MD [address] [place] [address] 08/30/2024 11:00 AM EST Hem/Onc Treatment Hematology/Oncolog y Treatment, [place] [address] [place], [place] [phone] [place], Chair 1 Hem Onc [address] [place] [address] 09/06/2024 8:45 AM EST Office Visit Ophthalmology, [facility] [address] [place] [address] Anthony Grey, DO [address] [place] [address] 03/10/2025 10:00 AM EDT Office Visit Sleep Disorders Ctr [facility] [address] [place] [phone] Margie Gutierrez, DO [address] [place] [address] Pending Results Name Type Priority Associated Diagnoses Date /Time COMPREHENSIVE METABOLIC PANEL Lab STAT 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) 08/08/2024 9:05 AM EST URINALYSIS, REFLEX TO MICROSCOPIC Lab STAT 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) 08/08/2024 9:05 AM EST PHOSPHORUS Lab STAT 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) 08/08/2024 9:05 AM EST MICROSCOPIC EXAM, URINE Lab STAT 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) 08/08/2024 9:05 AM EST Health Maintenance Due Date Last Done Comments [...] this encounter Medical Devices Implanted Type Area Green Meat Grader Device Identifier Shelf Expiration Date Model / Serial / Lot Port Implant W8f Poly Cath - [id number] Implanted:Qty : 1 on 04/20/2024 by Nathan Hardwick MD at [facility] Right: Chest CR BARD : PERIPHERAL VASCULAR [id number] 06/25/2025 [id number] / / [id number] documented as of this encounter Procedures Procedure Name Priority Date/Time Associated Diagnosis Comments DIFFERENTIAL, AUTOMATED STAT 08/08/2024 9:05 AM EST 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) CBC STAT 08/08/2024 9:05 AM EST 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) CBC STAT 08/08/2024 9:05 AM EST 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) documented in this encounter Results * (ABNORMAL) DIFFERENTIAL, AUTOMATED (08/08/2024 9:05 AM EST) WBC 10.09 4.00 - 10.80 K/uL 08/08/2024 9:13 AM [facility] 56-02 Neutrophils % 75.1(H) 40.0 - 75.0 % 08/08/2024 9:13 AM [facility] 56-02 Lymphocytes % 17.7(L) 18.0 - 42.0 % 08/08/2024 9:13 AM [facility] 56-02 Monocytes % 6.5 1.0 - 11.0 % 08/08/2024 9:13 AM [facility] 56-02 Eosinophils % 0.4 0.0 - 6.0 % 08/08/2024 9:13 AM [facility] 56-02 Basophils % 0.3 0.0 - 2.0 % 08/08/2024 9:13 AM [facility] 56-02 Absolute Neutrophils 7.57 1.80 - 7.70 K/uL 08/08/2024 9:13 AM [facility] 56-02 Absolute Lymphocytes 1.79 1.00 - 4.80 K/ul 08/08/2024 9:13 AM [facility] 56-02 Absolute Monocytes 0.66 0.00 - 1.10 K/uL 08/08/2024 9:13 AM [facility] 56-02 Absolute Eosinophils 0.04 0.00 - 0.70 K/uL 08/08/2024 9:13 AM [facility] 56-02 Absolute Basophils 0.03 0.00 - 0.20 K/uL 08/08/2024 9:13 AM [facility] 56-02 Blood Venous blood specimen / Unknown Venipuncture / Unknown 08/08/2024 9:05 AM EST 08/08/2024 9:05 AM EST us Yoav Schaefer MD LAB BLOOD ORDERABLES Final Res ult [facility] [address] [place] [address] * CBC (08/08/2024 9:05 AM EST) WBC 10.09 4.00 - 10.80 K/uL 08/08/2024 9:13 AM [facility] 56-02 RBC 3.94 3.85 - 5.15 M/uL 08/08/2024 9:13 AM [facility] 56-02 HGB 12.7 12.0 - 15.3 g/dL 08/08/2024 9:13 AM [facility] 56-02 HCT 38.3 36.0 - 45.2 % 08/08/2024 9:13 AM [facility] 56- MCV 97.2 81.5 - 97.5 fL 08/08/2024 9:13 AM [facility] 56-02 MCH 32.2 27.0 - 34.0 pg 08/08/2024 9:13 AM [facility] 56-02 MCHC 33.2 32.0 - 36.0 g/dL 08/08/2024 9:13 AM [facility] 56-02 RDW 17.4 11.5 - 15.5 % 08/08/2024 9:13 AM [facility] 56-02 PLT 192 140 - 400 K/uL 08/08/2024 9:13 AM [facility] 56-02 MPV 9.3 6.6 - 11.1 fL 08/08/2024 9:13 AM [facility] 56-02 Blood Venous blood specimen / Unknown Venipuncture / Unknown 08/08/2024 9:05 AM EST 08/08/2024 9:05 AM EST us Yoav Schaefer MD LAB BLOOD ORDERABLES Final Res ult [facility] [address] [place] [address] documented in this encounter Visit Diagnoses Diagnosis 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) documented in this encounter Care Teams House Cleaner Relationship Specialty Start Date End Date Richard Marshall DO [address] [facility] [place] [phone] PCP - General Family Medicine 08/26/22 documented as of this encounter
--- OUTSIDE RECORDS SUMMARY | 2024-08-11 03:25 | External Medical Summary ---
Author Name Unknown Address Unknown Organization [id number]:[facility] [address] [place] [address] Laboratory Report Ordering Provider Test Date Status BERNICE PARKER 08/08/2024 09:05:19 Final Observation Date Value Abnormality Reference (Units ) Status BUN 08/08/2024 09:05:19 19 6-20 (mg/dL) Final Creatinine 08/08/2024 09:05:19 0.6 0.5-1.0 (mg/dL) Final Glomerular filtration rate/1.73 sq M.predicted [Volume Rate/Area] in Serum, Plasma or Blood by Creatinine-based formula (CKD-EPI) 08/08/2024 09:05:19 >90 >=60 (mL/min) Final eGFR is calculated based on the CKD-EPI 2020 equation. Sodium 08/08/2024 09:05:19 140 135-146 (m mol/L) Final Potassium 08/08/2024 09:05:19 3.6 3.5-5.1 (m mol/L) Final Cl 08/08/2024 09:05:19 103 98-107 (mm ol/L) Final CO2 08/08/2024 09:05:19 21 Below low normal 22- 32 (mmol/L) Final Anion gap 08/08/2024 09:05:19 16 Above high normal 7- 15 (mmol/L) Final Glucose 08/08/2024 09:05:19 153 Above high normal 70 -120 (mg/dL) Final Albumin 08/08/2024 09:05:19 4.1 3.8-5.0 (g /dL) Final AST (Aspartate aminotransferase) 08/08/2024 09:05:19 21 10-35 (U/L) Fin al Alk Phos 08/08/2024 09:05:19 105 35-130 (U/ L) Final Bilirubin, Total 08/08/2024 09:05:19 0.6 <=1 .2 (mg/dL) Final Calcium 08/08/2024 09:05:19 9.8 8.4-10.2 ( mg/dL) Final Protein 08/08/2024 09:05:19 7.1 6.0-8.3 (g /dL) Final ALT (Alanine aminotransferase) 08/08/2024 09:05:19 24 10-35 (U/L) Brian morrow Performing Location [facility] [address] [place] [address]
--- OUTSIDE RECORDS SUMMARY | 2024-08-11 03:25 | External Medical Summary ---
Author Name Unknown Address Unknown Organization [id number][facility] [place] [address] Laboratory Report Ordering Provider Test Date Status BERNICE PARKER 08/08/2024 09:05:19 Final Observation Date Value Abnormality Reference (Units ) Status RBC, Urine 08/08/2024 09:05:19 6-9 Abnormal 0-2 (/HPF) Final WBC, Urine 08/08/2024 09:05:19 0-2 0-2 (/HPF) Final Bacteria [#/area] in Urine sediment by Microscopy high power field 08/08/2024 09:05:19 0-25 0-25 (/HPF) Final Epithelial cells.squamous [#/area] in Urine sediment by Microscopy high power field 08/08/2024 09:05:19 Many Abnormal None (/HPF) Final Mucus, Urine 08/08/2024 09:05:19 Many Abnormal None (/HPF) Final Performing Location [facility] [place] [address]
--- OUTSIDE RECORDS SUMMARY | 2024-08-11 03:25 | External Medical Summary ---
Author Name Unknown Address Unknown Organization [id number]:[facility] [place] [address] Laboratory Report Ordering Provider Test Date Status BERNICE PARKER 08/08/2024 09:05:19 Final Observation Date Value Abnormality Reference (Units ) Status WBC, Total 08/08/2024 09:05:19 10.09 4.00-10.8 0 (K/uL) Final RBC 08/08/2024 09:05:19 3.94 3.85-5.15 (M/uL) Final Hemoglobin 08/08/2024 09:05:19 12.7 12.0-15.3 (g/dL) Final HCT 08/08/2024 09:05:19 38.3 36.0-45.2 (%) Final MCV 08/08/2024 09:05:19 97.2 81.5-97.5 (fL) Final MCH 08/08/2024 09:05:19 32.2 27.0-34.0 (pg) Final MCHC 08/08/2024 09:05:19 33.2 32.0-36.0 (g/dL) Final RDW 08/08/2024 09:05:19 17.4 11.5-15.5 (%) Final Platelets 08/08/2024 09:05:19 192 140-400 (K /uL) Final MPV 08/08/2024 09:05:19 9.3 6.6-11.1 ( fL) Final Performing Location [facility] [place] [address]
--- OUTSIDE RECORDS SUMMARY | 2024-08-11 03:25 | External Medical Summary ---
Author Name Unknown Address Unknown Organization K09:[facility] [address] Laboratory Report Ordering Provider Test Date Status BERNICE PARKER 08/08/2024 09:05:19 Final Observation Date Value Abnormality Reference (Units ) Status SYNC LEUKOCYTES IN BLOOD BY AUTOMATED COUNT 08/08/2024 09:05:19 10.09 4.00-10.80 (K/uL) Final Segs 08/08/2024 09:05:19 75.1 Above high normal 40.0-75.0 (%) Final Lymphs % 08/08/2024 09:05:19 17.7 Below low normal 18.0-42.0 (%) Final Monos 08/08/2024 09:05:19 6.5 1.0-11.0 (%) Final Eosinophils 08/08/2024 09:05:19 0.4 0.0-6.0 (%) Final Basos 08/08/2024 09:05:19 0.3 0.0-2.0 (%) Final Absolute Segs 08/08/2024 09:05:19 7.57 1.80-7.70 (K/uL) Final Lymphs, absolute 08/08/2024 09:05:19 1.79 1.00-4.80 (K/ul) Final Monos, Abs 08/08/2024 09:05:19 0.66 0.00-1.10 (K/uL) Final Eos, Abs 08/08/2024 09:05:19 0.04 0.00-0.70 (K/uL) Final Basos, Abs 08/08/2024 09:05:19 0.03 0.00-0.20 (K/uL) Final Performing Location [facility] [address]
--- OUTSIDE RECORDS SUMMARY | 2024-08-11 03:25 | External Medical Summary ---
Author Name Unknown Address Unknown Organization K09:[facility] [place] [address] Laboratory Report Ordering Provider Test Date Status BERNICE PARKER 08/08/2024 09:05:19 Final Observation Date Value Abnormality Reference (Units ) Status Color of Urine by Auto 08/08/2024 09:05:19 Yellow Light Yellow, Yellow, Dark Yellow Final Clarity, Urine 08/08/2024 09:05:19 Slightly Cloudy Abnormal Clear Final Glucose [Mass/volume] in Urine by Automated test strip 08/08/2024 09:05:19 Negative Negative (mg/dL) Final Bilirubin.total [Presence] in Urine by Automated test strip 08/08/2024 09:05:19 Small Abnormal Negative Final Ketones [Mass/volume] in Urine by Automated test strip 08/08/2024 09:05:19 Negative Negative (mg/dL) Final Specific gravity, Urine 08/08/2024 09:05:19 >=1.030 1.003-1.030 Final Hemoglobin [Presence] in Urine by Automated test strip 08/08/2024 09:05:19 Moderate Abnormal Negative Final pH, Urine 08/08/2024 09:05:19 5.0 5.0-7.5 (Units) Final Protein [Mass/volume] in Urine by Automated test strip 08/08/2024 09:05:19 Negative Negative (mg/dL) Final Urobilinogen [Mass/volume] in Urine by Automated test strip 08/08/2024 09:05:19 0.2 0.2, 1.0 (mg/dL) Final Nitrite [Presence] in Urine by Automated test strip 08/08/2024 09:05:19 Negative Negative Final Leukocyte esterase [Presence] in Urine by Automated test strip 08/08/2024 09:05:19 Negative Negative Final Performing Location [facility] [place] [address]
--- OUTSIDE RECORDS SUMMARY | 2024-08-11 03:26 | External Medical Summary | Summary of Care ---
Author Name Unknown Organization [facility] Address [address] [facility] [address] Phone [phone] Care Team Providers Care Misdraw Hand Name Role Phone Richard Marshall DO Primary Care Provider + [phone] Reason for Visit * Reason Comments Medication Administration Fulphila * Episode Based Medications (Routine) - Authorized Specialty Diagnoses / Procedures Referred By Contac t Referred To Contact Diagnoses Cancer, metastatic to bone (HCC) 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) Encounter for antineoplastic chemotherapy Prevention of chemotherapy-induced neutropenia Procedures RI CARBOPLATIN INJECTION RI FOSAPREPITANT INJECTION RI INJ., ZIRABEV, 10 MG RI PACLITAXEL INJECTION RI INJECTION, UDENYCA 0.5 MG RI INJ MVASI 10 MG RI INJECTION, Nicole Wise MD Hematology/Oncology Treatment, [address] [address] Phone: tel: fax: Referral ID Status Reason Start Date Expiration Date V isits Requested Visits Authorized [id number] Authorized 05/31/2024 09/24/2024 [id number] Encounter Details Date Type Department Care Team (Latest Contact Info) Description 07/19/2024 3:45 PM EST Immunization/ Injection Hematology/Oncology Treatment, [address] [address] [place], Chair [address] [address] Cancer, metastatic to bone (HCC)*; 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); Encounter for antineoplastic chemotherapy; Prevention of chemotherapy-induced neutropenia Allergies Active Allergy Reactions Criticality Noted Date Comments Iodinated Contrast Media 07/05/2021 "itchy, rash and hives" CT Scan documented as of this encounter (statuses as of 08/04/2024) Medications Vitamin D (Cholecalciferol) 50 MCG (2000 UT) Oral Capsule Take by mouth at bedtime. Active Ferrous Sulfate 325 (65 Fe) MG Oral Tablet (Feosol) Take 1 Tablet by mouth at bedtime. Active Stiolto Respimat 2.5-2.5 MCG/ACT Inhalation Aerosol Solution (Tiotropium [place]-Olodaterol )Indications:COPD, severity to be determined (HCC) Inhale [...] 05/22/2023 Does the household have a re lar source of income? 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 Patient complained of temp 101.6F, chest pain. Dr. Schaefer in to evaluatepatient. After discussion and chart review, ok to give Fulphila and patient to monitor symptoms andcall in to blue print control clerk provider or go to ER if symptoms worsen. Fulphila given and patient discharged with spouse. documented in this encounter Plan of Treatment Upcoming Encounters Date Type Department Care Team (Late st Contact Info) Description 08/08/2024 9:00 AM EST Laboratory Laboratory [facility] [place] [address] [place] [phone] [place], Lab [facility] [place] [address] 08/08/2024 9:30 AM EST Office Visit Hematology/Oncology [facility] [place] [address] [place] [phone] Mayte Tatum CRNP [address] [place], [place] [address] [address] 08/08/2024 10:00 AM EST Hem/Onc Treatment Hematology/Oncology Treatment, [place] [address] [place], [place] [phone] [place], Chair [address] [place], [place] [address] 08/30/2024 9:00 AM EST Laboratory Laboratory [facility] [place] [address] [place] [phone] [place], Lab [facility] 200 [facility] [place] [address] 08/30/2024 10:00 AM EST Office Visit Hematology/Oncology [facility] [place] [address] [place] [phone] Yoav Schaefer MD 200 [place] [address] 08/30/2024 11:00 AM EST Hem/Onc Treatment Hematology/Oncology Treatment, [place] [address] [place] [address] [place], Chair 1 Hem Onc Scenery [address] [place] [address] 09/06/2024 8:45 AM EST Office Visit Ophthalmology, [facility] [address] [place] [address] Anthony Grey, DO [address] [place] [address] 03/10/2025 10:00 AM EDT Office Visit Sleep Disorders Ctr [facility] [address] [place] [phone] Margie Gutierrez, DO [address] [place] [address] Health Maintenance Due Date Last Done Comments [...] this encounter Medical Devices Implanted Type Area Plug Machine Operator Device Identifier Shelf Expiration Date Model / Serial / Lot Port Implant W8f Poly Cath - [id number] Implanted:Qty : 1 on 04/20/2024 by Nathan Hardwick MD at [facility] Right: Chest CR BARD : PERIPHERAL VASCULAR [id number] 06/25/2025 [id number] / / [id number] documented as of this encounter Visit Diagnoses [...] 6 mg 6 mg, Subcutaneous, ONCE, On e 07/19/24 at 1630, For 1 doseIndications:Cancer, metastatic to bone (HCC),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),Encounter for antineoplastic chemotherapy,Prevention of chemotherapy-induced neutropenia Given 07/19/2024 3:53 PM EST 6 mg Arm Right Upper documented in this encounter Care Teams Misdraw Hand Relationship Specialty Start Date End Date Richard Marshall DO [address] [place] [address] PCP - General Family Medicine 08/26/22 documented as of this encounter
--- OUTSIDE RECORDS SUMMARY | 2024-08-11 03:26 | External Medical Summary | Summary of Care ---
Author Name Unknown Organization [facility] Address [address] [facility] [address] Phone [phone] Care Team Providers Care Tank Cleaner Name Role Phone Richard Marshall DO Primary Care Provider [phone] Reason for Visit * Reason Comments Infusion Hydration and lab dr ibarra Encounter Details Date Type Department Care Team (Latest Contact Info) Description 07/22/2024 1:00 PM EST Hem/Onc Treatment Hematology/Oncology Treatment, [place] [address] [place] [address] Shereen, Chair 8 Hem Onc [address]enery [address] [place] [address] Dehydration*; 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) Allergies Active Allergy Reactions Criticality Noted Date Comments Iodinated Contrast Media 07/05/2021 "itchy, rash and hives" CT Scan documented as of this encounter (statuses as of 08/04/2024) Medications Vitamin D (Cholecalciferol) 50 MCG (1999) Oral Capsule Take by mouth at bedtime. Active Ferrous Sulfate 325 (65 Fe) MG Oral Tablet (Feosol) Take 1 Tablet by mouth at bedtime. Active Stiolto Respimat 2.5-2.5 MCG/ACT Inhalation Aerosol Solution (Tiotropium [place]-Olodaterol )Indications:COPD, severity to be determined ([facility]) Inhale 2 Puffs by mouth daily. 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 PIV removed intact. Patient aware to have repeat CMP Mon. Goals: Patient will remain free from injury. Possible barriers to meeting goals: Ambulating with IV pole Stability of the patient: Moderately stable - low risk of patient condition declining or worsening Summary regarding today's goals: Met: Patient remained free from harm. Pt discharged in stable condition. * Roselia Walters RN - 07/22/2024 2:58 PM EST Patient corrected information that the "last time [she] had Keflex was for a skin infection around the port, not a spot on [her] back." * Roselia Walters RN - 07/22/2024 2:36 PM EST Chair 1 Patient here for hydration. Patient complained of significant fatigue and having had an episode of cramping in her right arm earlier today. Assessed port to find some redness over port. Patient complained port is very tender. Dr. Schaefer assessed and ordered Keflex. PIV started and labs drawn from PIV. Patient instructed on use of heat in chair. Patient shown how to operate the heat [...] Description 08/08/2024 9:00 AM EST Laboratory Laboratory [facility] [address] [place] [phone] She[place] Lab [facility] 200 [facility] [place] [address] 08/08/2024 9:30 AM EST Office Visit Hematology/Oncology [facility] [place] 200 [facility] [place] [phone] Mayte Tatum CRNP [address] [place] [address] 08/08/2024 10:00 AM EST Hem/Onc Treatment Hematology/Oncology Treatment, [place] [address] [place] [phone] She[place], Chair 2 Hem Onc Scenery 200 [facility] [place] [address] 08/30/2024 9:00 AM EST Laboratory Laboratory [facility] [place] [address] [place] [phone] [place], Lab [facility] 200 [facility] [place] [address] 08/30/2024 10:00 AM EST Office Visit Hematology/Oncology [facility] [address] [place], [place] [phone] Yoav Schaefer MD [facility] [place] [address] 08/30/2024 11:00 AM EST Hem/Onc Treatment Hematology/Oncology Treatment, [place] [address] [facility] [address] [place], [place] [phone] [place], Chair 1 Hem Onc [facility] 200 [facility] [place], [place] [address] 09/06/2024 8:45 AM EST Office Visit Ophthalmology, [facility] [address] [place] [address] Anthony Grey, DO [address] [place] [address] 03/10/2025 10:00 AM EDT Office Visit Sleep Disorders Ctr [facility] [address] [place] [phone] Margie Gutierrez, DO [address] [place] [address] Health Maintenance Due Date Last Done Comments [...] this encounter Medical Devices Implanted Type Area Appointment Clerk Device Identifier Shelf Expiration Date Model / Serial / Lot Port Implant W8f Poly Cath - [id number] Implanted:Qty : 1 on 04/20/2024 by Nathan Hardwick MD at [facility] Right: Chest CR BARD : PERIPHERAL VASCULAR [id number] 06/25/2025 [id number] / / [id number] documented as of this encounter Procedures Procedure Name Priority Date/Time Associated Diagnosis Comments DIFFERENTIAL, AUTOMATED STAT 07/22/2024 12:56 PM EST 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) COMPREHENSIVE METABOLIC PANEL STAT 07/22/2024 12:56 PM EST 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) CBC STAT 07/22/2024 12:56 PM EST 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) CBC STAT 07/22/2024 12:56 PM EST 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) DIFFERENTIAL, TECHNOLOGIST REVIEW Routine 07/22/2024 12:56 PM EST 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) documented in this encounter Results * DIFFERENTIAL, TECHNOLOGIST REVIEW (07/22/2024 12:56 PM EST) Pathologist [facility] nRBCs 07/22/2024 2:01 PM EST [facility] 56-02 Blood Venous blood specimen / Unknown Central Line / Unknown 07/22/2024 12:56 PM EST 07/22/2024 1:32 PM EST us Yoav Schaefer MD LAB BLOOD ORDERABLES Final Res ult [facility] 56- [address] [place] [address] * (ABNORMAL) DIFFERENTIAL, AUTOMATED (07/22/2024 12:56 PM EST) [facility] WBC 30.87(H) 4.00 - 10.80 K/uL 07/22/2024 2:01 PM EST [facility] 56- Neutrophils % 93.3(H) 40.0 - 75.0 % 07/22/2024 2:01 PM EST [facility] 56- Lymphocytes % 5.0(L) 18.0 - 42.0 % 07/22/2024 2:01 PM EST [facility] 56- Monocytes % 1.2 1.0 - 11.0 % 07/22/2024 2:01 PM [facility] 56-02 Eosinophils % 0.4 0.0 - 6.0 % 07/22/2024 2:01 PM EST [facility] 56- Basophils % 0.1 0.0 - 2.0 % 07/22/2024 2:01 PM EST [facility] 56-02 Absolute Neutrophils 28.80(H) 1.80 - 7.70 K/uL 07/22/2024 2:01 PM EST [facility] 56-02 Absolute Lymphocytes 1.54 1.00 - 4.80 K/ul 07/22/2024 2:01 PM [facility] 56-02 Absolute Monocytes 0.37 0.00 - 1.10 K/uL 07/22/2024 2:01 PM EST [facility] 56-02 Absolute Eosinophils 0.12 0.00 - 0.70 K/uL 07/22/2024 2:01 PM [facility] 56-02 Absolute Basophils 0.04 0.00 - 0.20 K/uL 07/22/2024 2:01 PM EST [facility] 56 Blood Venous blood specimen / Unknown Central Line / Unknown 07/22/2024 12:56 PM EST 07/22/2024 1:32 PM EST us Yoav Schaefer MD LAB BLOOD ORDERABLES Final Res ult [place] [address] [place], [place] [phone] * (ABNORMAL) CBC (07/22/2024 12:56 PM EST) WBC 30.87(H) 4.00 - 10.80 K/uL 07/22/2024 1:[address] RBC 4.44 3.85 - 5.15 M/uL 07/22/2024 1:52 PM [place] [address] HGB 13.7 12.0 - 15.3 g/dL 07/22/2024 1:[address] HCT 41.1 36.0 - 45.2 % 07/22/2024 1:[address] MCV 92.6 81.5 - 97.5 fL 07/22/2024 1:[address] MCH 30.9 27.0 - 34.0 pg 07/22/2024 1:52 PM [place] [address] MCHC 33.3 32.0 - 36.0 g/dL 07/22/2024 1:[address] RDW 17.8 11.5 - 15.5 % 07/22/2024 1:52 PM [facility] 56 PLT 234 140 - 400 K/uL 07/22/2024 1:52 PM [facility] 56 MPV 10.5 6.6 - 11.1 fL 07/22/2024 1:52 PM [facility] 56 Blood Venous blood specimen / Unknown Central Line / Unknown 07/22/2024 12:56 PM EST 07/22/2024 1:32 PM EST us Yoav Schaefer MD LAB BLOOD ORDERABLES Final Res ult [place] [address] [place], [place] [phone] * (ABNORMAL) COMPREHENSIVE METABOLIC PANEL (07/22/2024 12:56 PM EST) BUN 20 6 - 20 mg/dL 07/22/2024 1:51 PM [facility] 56 CREATININE 0.6 0.5 - 1.0 mg/dL 07/22/2024 1:51 PM EST [address] EGFR >90 >=60 mL/min 07/22/2024 1:51 PM [facility] 56 Comment:eGFR is calculated b ased on the CKD-EPI 2020 equation. SODIUM 136 135 - 146 mmol/L 07/22/2024 1:51 PM [facility] 56 POTASSIUM 3.2(L) 3.5 - 5.1 mmol/L 07/22/2024 1:51 PM [facility] 56 CHLORIDE 97(L) 98 - 107 mmol/L 07/22/2024 1:51 PM [facility] 56 CO2 19(L) 22 - 32 mmol/L 07/22/2024 1:51 PM [facility] 56 ANION GAP 20(H) 7 - 15 mmol/L 07/22/2024 1:51 PM [facility] 56 GLUCOSE 159(H) 70 - 120 mg/dL 07/22/2024 1:51 PM [facility] 56 Albumin 4.1 3.8 - 5.0 g/dL 07/22/2024 1:51 PM [facility] 56 AST 23 10 - 35 U/L 07/22/2024 1:51 PM [facility] 56 Alkaline Phosphatase 147(H) 35 - 130 U/L 07/22/2024 1:51 PM [facility] 56 Bilirubin, Total 0.9 <=1.2 mg/dL 07/22/2024 1:51 PM [facility] 56 CALCIUM 9.1 8.4 - 10.2 mg/dL 07/22/2024 1:51 PM EST [facility] 56- Protein 7.2 6.0 - 8.3 g/dL 07/22/2024 1:51 PM EST [facility] 56-02 ALT 27 10 - 35 U/L 07/22/2024 1:51 PM EST [facility] 56-02 Blood Venous blood specimen / Unknown Central Line / Unknown 07/22/2024 12:56 PM EST 07/22/2024 1:32 PM EST us Yoav Schaefer MD LAB BLOOD ORDERABLES Final Res ult [facility] [address] [place] [address] documented in this encounter Visit Diagnoses Diagnosis Dehydration- Primary 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) documented in this encounter Administered Medications Inactive Administered Medications - up to 3 most recent administrations Medication Order MAR Action Action Date Dose Rate Site NSS infusion FOR HYDRATION Intravenous, at 500 mL/hr Administer over 2 Hours, ONCE, 1 dose, On Thu07/22/24 at 1430Indications: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),Dehydration Start Infusion 07/22/2024 1:20 PM EST 1,000 mL 500 mL/hr potassium chloride 10 mEq in 100 mL ivpb LOCKED DOSE 10 mEq, Peripheral IV, Q1H, 1 dose, First dose on Thu07/22/24 at 1530, Administer over 60 Minutes, Standard infusion duration is 60 minutes.Indications: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),Dehydration Start Infusion 07/22/2024 3:11 PM EST 10 mEq 100 mL/hr documented in this encounter Care Teams Tank Cleaner Relationship Specialty Start Date End Date Richard Marshall DO [address] [place] [address] PCP - General Family Medicine 08/26/22 documented as of this encounter
--- OUTSIDE RECORDS SUMMARY | 2024-08-11 03:26 | External Medical Summary | Summary of Care ---
Author Name Unknown Organization [facility] Address [address] [facility] [address] Phone [phone] Care Team Providers Care Records Specialist Name Role Phone Richard Marshall DO Primary Care Provider + [phone] Reason for Visit * Reason Comments Chemotherapy TAXOL/CARBO Nurse Documentation Hold MVASI * Episode Based Medications (Routine) - Authorized Specialty Diagnoses / Procedures Referred By Contac t Referred To Contact Diagnoses Cancer, metastatic to bone (HCC) 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) Encounter for antineoplastic chemotherapy Prevention of chemotherapy-induced neutropenia Procedures IN CARBOPLATIN INJECTION IN FOSAPREPITANT INJECTION IN INJ., ZIRABEV, 10 MG IN PACLITAXEL INJECTION IN INJECTION, UDENYCA 0.5 MG IN INJ MVASI 10 MG IN INJECTION, Nicole Wise MD Hematology/Oncology Treatment, [address] [address] Phone: tel: fax: Referral ID Status Reason Start Date Expiration Date V isits Requested Visits Authorized [id number] Authorized 05/31/2024 09/24/2024 [id number] Encounter Details Date Type Department Care Team (Latest Contact Info) Description 07/18/2024 10:00 AM EST Hem/Onc Treatment Hematology/Oncolog y Treatment, [address] [place] [address] Shereen, Chair 3 Hem On[address] [place] [address] Cancer, metastatic to bone (HCC)*; Lung [...] Respimat 2.5-2.5 MCG/ACT Inhalation Aerosol Solution (Tiotropium [place]-Olodaterol )Indications:COPD, severity to be determined (HCC) Inhale [...] 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 [place] [phone] Mayte Tatum CRNP [address] [place] [address] [place] [address] 08/08/2024 10:00 AM EST Hem/Onc Treatment Hematology/Oncology Treatment, [place] [address] [place] [phone] She[place], Chair 2 Hem Onc [facility] 200 [facility] [place] [address] 08/30/2024 9:00 AM EST Laboratory Laboratory [facility] [address] [place] [phone] [place], Lab [address] [place] [address] 08/30/2024 10:00 AM EST Office Visit Hematology/Oncology [facility] [place] [address] [place], [place] [phone] Yoav Schaefer MD [address] [place] [address] 08/30/2024 11:00 AM EST Hem/Onc Treatment Hematology/Oncology Treatment, [place] [address] [place], [place] [phone] She[place], Chair 1 Hem Onc [address] [place], [place] [address] 09/06/2024 8:45 AM EST Office Visit Ophthalmology, [facility] [address] [place] [address] Anthony Grey, DO [address] [place] [address] 03/10/2025 10:00 AM EDT Office Visit Sleep Disorders Ctr [facility] [address] [place] [phone] Margie Gutierrez, DO [address] [place] [address] Health Maintenance Due Date Last Done Comments [...] this encounter Medical Devices Implanted Type Area Risk Professional Device Identifier Shelf Expiration Date Model / Serial / Lot Port Implant W8f Poly Cath - [id number] Implanted:Qty : 1 on 04/20/2024 by Nathan Hardwick MD at [facility] Right: Chest CR BARD : PERIPHERAL VASCULAR [id number] 06/25/2025 [id number] / / [id number] documented as of this encounter Procedures Procedure Name Priority Date/Time Associated Diagnosis Comments TROPONIN T, HIGH SENSITIVITY Routine 07/18/2024 3:41 PM EST 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) BNP (NT-PROBNP) Routine 07/18/2024 3:41 PM EST 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) documented in this encounter Results * BNP, NT-PRO (07/18/2024 3:41 PM EST) BNP, NT-Pro 50 <300 pg/mL 07/19/2024 2:08 AM EST [facility] Blood Venous blood specimen / Unknown Venipuncture / Unknown 07/18/2024 3:41 PM EST 07/18/2024 3:41 PM EST Narrative [facility] - 07/19/2024 2:08 AM EST Exclude Heart Failure: <300 pg/mL Diagnose Heart Failure: Age <50 yr: >450 pg/mL 50-75 yr: >900 pg/mL >75 yr: >1800 pg/mL GFR is 30-59 mL/min: >1200 pg/mL or Age-adjusted values GFR <30 mL/min: do not use, not reliable Prognostic threshold: 1000 pg/mL us Nicole Vinson MD LAB BLOOD OR DERABLES Final Result Performing Organization Address City/State/[facility] Co de Phone Number LABORATORY [address] [address] * TROPONIN T, HIGH SENSITIVITY (07/18/2024 3:41 PM EST) Pathologist [facility] Troponin T, High Sensitivity <6 <=14 ng/L 07/18/2024 10:30 PM EST [facility] Blood Venous blood specimen / Unknown Venipuncture / Unknown 07/18/2024 3:41 PM EST 07/18/2024 3:41 PM EST us Nicole Vinson MD LAB BLOOD OR DERABLES Final Result [address] [address] documented in this encounter Visit Diagnoses Diagnosis [...] mL documented in this encounter Care Teams Records Specialist Relationship Specialty Start Date End Date Richard Marshall DO [address] [place] [address] [place] [phone] PCP - General Family Medicine 08/26/22 documented as of this encounter
--- OUTSIDE RECORDS SUMMARY | 2024-08-11 03:26 | External Medical Summary | Summary of Care ---
Author Name Unknown Organization [facility] Address [address] [facility] [address] Phone [phone] Care Team Providers Care Duck Farmer Name Role Phone Richard Marshall DO Primary Care Provider + [phone] Reason for Visit * Reason Comments Chemotherapy TAXOL/CARBO Nurse Documentation Hold MVASI * Episode Based Medications (Routine) - Authorized Specialty Diagnoses / Procedures Referred By Contac t Referred To Contact Diagnoses Cancer, metastatic to bone (HCC) 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) Encounter for antineoplastic chemotherapy Prevention of chemotherapy-induced neutropenia Procedures HI CARBOPLATIN INJECTION HI FOSAPREPITANT INJECTION HI INJ., ZIRABEV, 10 MG HI PACLITAXEL INJECTION HI INJECTION, UDENYCA 0.5 MG HI INJ MVASI 10 MG HI INJECTION, Nicole Wise MD Hematology/Oncology Treatment, [address] [address] Phone: tel: fax: Referral ID Status Reason Start Date Expiration Date V isits Requested Visits Authorized [id number] Authorized 05/31/2024 09/24/2024 [id number] Encounter Details Date Type Department Care Team (Latest Contact Info) Description 07/18/2024 10:00 AM EST Hem/Onc Treatment Hematology/Oncolog y Treatment, [address] [place] [address] Shereen, Chair 3 Hem Onc [address] [place] [address] Cancer, metastatic to bone (HCC)*; Lung [...] Respimat 2.5-2.5 MCG/ACT Inhalation Aerosol Solution (Tiotropium [place]-Olodaterol )Indications:COPD, severity to be determined (HCC) Inhale [...] 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 Not on file [...] Description 08/08/2024 9:00 AM EST Laboratory Laboratory [facility] [address] [place] [phone] [place], Lab [facility] 200 [facility] [place] [address] 08/08/2024 9:30 AM EST Office Visit Hematology/Oncology [facility] 200 [facility] [place] [phone] Mayte Tatum CRNP [address] [place] [address] [place] [address] 08/08/2024 10:00 AM EST Hem/Onc Treatment Hematology/Oncology Treatment, [place] [address] [place] [phone] Shereen, Chair 2 Hem Onc [facility] 200 [facility] [place] [address] 08/30/2024 9:00 AM EST Laboratory Laboratory [facility] [address] [place] [phone] Shereen, Lab [address] [place] [address] 08/30/2024 10:00 AM EST Office Visit Hematology/Oncology [facility] [place] [address] [place], [place] [phone] Yoav Schaefer MD [address] [place] [address] 08/30/2024 11:00 AM EST Hem/Onc Treatment Hematology/Oncology Treatment, [place] [address] [place], [place] [phone] Shereen, Chair 1 Hem Onc [address] [place], [place] [address] 09/06/2024 8:45 AM EST Office Visit Ophthalmology, [facility] [address] [place] [address] Anthony Grey, DO [address] [place] [address] 03/10/2025 10:00 AM EDT Office Visit Sleep Disorders Ctr [facility] [address] [place] [phone] Margie Gutierrez, DO [address] [place] [address] Health Maintenance Due Date Last Done Comments [...] this encounter Medical Devices Implanted Type Area Load Out Supervisor Device Identifier Shelf Expiration Date Model / Serial / Lot Port Implant W8f Poly Cath - [id number] Implanted:Qty : 1 on 04/20/2024 by Nathan Hardwick MD at [facility] Right: Chest CR BARD : PERIPHERAL VASCULAR [id number] 06/25/2025 [id number] / / [id number] documented as of this encounter Procedures Procedure Name Priority Date/Time Associated Diagnosis Comments TROPONIN T, HIGH SENSITIVITY Routine 07/18/2024 3:41 PM EST 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) BNP (NT-PROBNP) Routine 07/18/2024 3:41 PM EST 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) documented in this encounter Results * BNP, NT-PRO (07/18/2024 3:41 PM EST) BNP, NT-Pro 50 <300 pg/mL 07/19/2024 2:08 AM EST LABORATORY [facility] [facility] Blood Venous blood specimen / Unknown Venipuncture / Unknown 07/18/2024 3:41 PM EST 07/18/2024 3:41 PM EST Narrative LAB[facility]ATORY [facility] [place] - 07/19/2024 2:08 AM EST Exclude Heart Failure: <300 pg/mL Diagnose Heart Failure: Age <50 yr: >450 pg/mL 50-75 yr: >900 pg/mL >75 yr: >1800 pg/mL GFR is 30-59 mL/min: >1200 pg/mL or Age-adjusted values GFR <30 mL/min: do not use, not reliable Prognostic threshold: 1000 pg/mL us Nicole Vinson MD LAB BLOOD OR DERABLES Final Result Performing Organization Address City/State/[facility] Co de Phone Number LABORATORY [address] [address] * TROPONIN T, HIGH SENSITIVITY (07/18/2024 3:41 PM EST) Pathologist [facility] Troponin T, High Sensitivity <6 <=14 ng/L 07/18/2024 10:30 PM EST LABORATORY [facility] [place] Blood Venous blood specimen / Unknown Venipuncture / Unknown 07/18/2024 3:41 PM EST 07/18/2024 3:41 PM EST us Nicole Vinson MD LAB BLOOD OR DERABLES Final Result [address] [address] documented in this encounter Visit Diagnoses Diagnosis [...] mL documented in this encounter Care Teams Duck Farmer Relationship Specialty Start Date End Date Richard Marshall DO [address] [place] [address] [place] [id number] PCP - General Family Medicine 08/26/22 documented as of this encounter
--- OUTSIDE RECORDS SUMMARY | 2024-08-11 03:26 | External Medical Summary | Summary of Care ---
Author Name Unknown Organization [facility] Address [address] [facility] [address] Phone [phone] Care Team Providers Care Audio Visual Secretary Name Role Phone Richard Marshall DO Primary Care Provider + [phone] Reason for Visit * Reason Comments Chemotherapy TAXOL/CARBO Nurse Documentation Hold MVASI * Episode Based Medications (Routine) - Authorized Specialty Diagnoses / Procedures Referred By Contac t Referred To Contact Diagnoses Cancer, metastatic to bone (HCC) 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) Encounter for antineoplastic chemotherapy Prevention of chemotherapy-induced neutropenia Procedures [place] CARBOPLATIN INJECTION [place] FOSAPREPITANT INJECTION [place] INJ., ZIRABEV, 10 MG [place] PACLITAXEL INJECTION [place] INJECTION, UDENYCA 0.5 MG WA INJ MVASI 10 MG [place] INJECTION, Nicole Wise MD Hematology/Oncology Treatment, [address] [address] Phone: tel: fax: Referral ID Status Reason Start Date Expiration Date V isits Requested Visits Authorized [id number] Authorized 05/31/2024 09/24/2024 [id number] Encounter Details Date Type Department Care Team (Latest Contact Info) Description 07/18/2024 10:00 AM EST Hem/Onc Treatment Hematology/Oncolog y Treatment, [address] [place] [address] Shereen, Chair 3 Hem Onc [address] [place] [address] Cancer, metastatic to bone (HCC)*; Lung [...] Respimat 2.5-2.5 MCG/ACT Inhalation Aerosol Solution (Tiotropium [place]-Olodaterol )Indications:COPD, severity to be determined (HCC) Inhale [...] 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 [address] [place] [phone] [place], Lab [facility] 200 [facility] [place] [address] 08/08/2024 9:30 AM EST Office Visit Hematology/Oncology [facility] [place] [phone] Mayte Tatum CRNP [address] [place] [address] [place] [address] 08/08/2024 10:00 AM EST Hem/Onc Treatment Hematology/Oncology Treatment, [place] [address] [place] [phone] Shereen, Chair 2 Hem Onc [facility] 200 [facility] [place] [address] 08/30/2024 9:00 AM EST Laboratory Laboratory [facility] [address] [place] [phone] She[place], Lab [address] [place] [address] 08/30/2024 10:00 AM EST Office Visit Hematology/Oncology [facility] [place] [address] [place], [place] [phone] Yoav Schaeefr MD [address] [place] [address] 08/30/2024 11:00 AM EST Hem/Onc Treatment Hematology/Oncology Treatment, [place] [address] [place], [place] [phone] Shereen, Chair 1 Hem Onc [address] [place], [place] [address] 09/06/2024 8:45 AM EST Office Visit Ophthalmology, [facility] [address] [place] [address] Anthony Grey, DO [address] [place] [address] 03/10/2025 10:00 AM EDT Office Visit Sleep Disorders Ctr [facility] [address] [place] [phone] Margie Gutierrez, DO [address] [place] [address] Health Maintenance Due Date Last Done Comments [...] this encounter Medical Devices Implanted Type Area Preparation Supervisor Freezing Device Identifier Shelf Expiration Date Model / Serial / Lot Port Implant W8f Poly Cath - [id number] Implanted:Qty : 1 on 04/20/2024 by Nahtan Hardwick MD at [facility] Right: Chest CR BARD : PERIPHERAL VASCULAR [id number] 06/25/2025 [id number] / / [id number] documented as of this encounter Procedures Procedure Name Priority Date/Time Associated Diagnosis Comments TROPONIN T, HIGH SENSITIVITY Routine 07/18/2024 3:41 PM EST 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) BNP (NT-PROBNP) Routine 07/18/2024 3:41 PM EST 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) documented in this encounter Results * BNP, NT-PRO (07/18/2024 3:41 PM EST) BNP, NT-Pro 50 <300 pg/mL 07/19/2024 2:08 AM EST LABORATORY [facility] Blood Venous blood specimen / Unknown Venipuncture / Unknown 07/18/2024 3:41 PM EST 07/18/2024 3:41 PM EST Narrative LABORATORY [facility] - 07/19/2024 2:08 AM EST Exclude Heart Failure: <300 pg/mL Diagnose Heart Failure: Age <50 yr: >450 pg/mL 50-75 yr: >900 pg/mL >75 yr: >1800 pg/mL GFR is 30-59 mL/min: >1200 pg/mL or Age-adjusted values GFR <30 mL/min: do not use, not reliable Prognostic threshold: 1000 pg/mL us Nicole Vinson MD LAB BLOOD OR DERABLES Final Result Performing Organization Address City/State/[facility] Co de Phone Number LABORATORY [address] [address] * TROPONIN T, HIGH SENSITIVITY (07/18/2024 3:41 PM EST) Pathologist [facility] Troponin T, High Sensitivity <6 <=14 ng/L 07/18/2024 10:30 PM EST LABORATORY [facility] Blood Venous blood specimen / Unknown Venipuncture / Unknown 07/18/2024 3:41 PM EST 07/18/2024 3:41 PM EST us Nicole Vinson MD LAB BLOOD OR DERABLES Final Result [address] [address] documented in this encounter Visit Diagnoses Diagnosis [...] mL documented in this encounter Care Teams Audio Visual Secretary Relationship Specialty Start Date End Date Richard Marshall DO [address] [place] [address] [place] [id number] PCP - General Family Medicine 08/26/22 documented as of this encounter
--- OUTSIDE RECORDS SUMMARY | 2024-08-11 03:26 | External Medical Summary | Summary of Care ---
Author Name Unknown Organization [facility] Address [address] [facility] [address] Phone [phone] Care Team Providers Care Account Receivable Clerk Name Role Phone Richard Marshall DO Primary Care Provider + [phone] Reason for Visit * Reason Comments Chemotherapy TAXOL/CARBO Nurse Documentation Hold MVASI * Episode Based Medications (Routine) - Authorized Specialty Diagnoses / Procedures Referred By Contac t Referred To Contact Diagnoses Cancer, metastatic to bone (HCC) 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) Encounter for antineoplastic chemotherapy Prevention of chemotherapy-induced neutropenia Procedures [place] CARBOPLATIN INJECTION [place] FOSAPREPITANT INJECTION [place] INJ., ZIRABEV, 10 MG [place] PACLITAXEL INJECTION [place] INJECTION, UDENYCA 0.5 MG OK INJ MVASI 10 MG [place] INJECTION, Nicole Wise MD Hematology/Oncology Treatment, [address] [address] Phone: tel: fax: Referral ID Status Reason Start Date Expiration Date V isits Requested Visits Authorized [id number] Authorized 05/31/2024 09/24/2024 999 [id number] Encounter Details Date Type Department Care Team (Latest Contact Info) Description 07/18/2024 10:00 AM EST Hem/Onc Treatment Hematology/Oncolog y Treatment, [address] [place] [address] Shereen, Chair 3 Hem On[address] [place] [address] Cancer, metastatic to bone (HCC)*; Lung [...] Respimat 2.5-2.5 MCG/ACT Inhalation Aerosol Solution (Tiotropium [place]-Olodaterol )Indications:COPD, severity to be determined (HCC) Inhale [...] 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 on file Not [...] Description 08/08/2024 9:00 AM EST Laboratory Laboratory [facility] [address] [place] [phone] [place], Lab [facility] 200 [facility] [place] [address] 08/08/2024 9:30 AM EST Office Visit Hematology/Oncology [facility] 200 [facility] [place] [phone] Mayte Tatum CRNP [address] [place] [address] [place] [address] 08/08/2024 10:00 AM EST Hem/Onc Treatment Hematology/Oncology Treatment, [place] [address] [place] [phone] Shereen, Chair 2 Hem Onc [facility] 200 [facility] [place] [address] 08/30/2024 9:00 AM EST Laboratory Laboratory [facility] [address] [place] [phone] Shereen, Lab [address]enery [address] [place] [address] 08/30/2024 10:00 AM EST Office Visit Hematology/Oncology [facility] [place] [address] [place], [place] [phone] Yoav Schaefer MD [address] [place] [address] 08/30/2024 11:00 AM EST Hem/Onc Treatment Hematology/Oncology Treatment, [place] [address] [place], [place] [phone] Shereen, Chair 1 Hem Onc [address] [place], [place] [address] 09/06/2024 8:45 AM EST Office Visit Ophthalmology, [facility] [address] [place] [address] Anthony Grey, DO [address] [place] [address] 03/10/2025 10:00 AM EDT Office Visit Sleep Disorders Ctr [facility] [address] [place] [phone] Margie Gutierrez, DO [address] [place] [address] Health Maintenance Due Date Last Done Comments [...] this encounter Medical Devices Implanted Type Area Leather Skinner Device Identifier Shelf Expiration Date Model / Serial / Lot Port Implant W8f Poly Cath - [id number] Implanted:Qty : 1 on 04/20/2024 by Nathan Hardwick MD at [facility] Right: Chest CR BARD : PERIPHERAL VASCULAR [id number] 06/25/2025 [id number] / / [id number] documented as of this encounter Procedures Procedure Name Priority Date/Time Associated Diagnosis Comments TROPONIN T, HIGH SENSITIVITY Routine 07/18/2024 3:41 PM EST 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) BNP (NT-PROBNP) Routine 07/18/2024 3:41 PM EST 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) documented in this encounter Results * BNP, NT-PRO (07/18/2024 3:41 PM EST) BNP, NT-Pro 50 <300 pg/mL 07/19/2024 2:08 AM EST [facility] [place] Venous blood specimen / Unknown Venipuncture / Unknown 07/18/2024 3:41 PM EST 07/18/2024 3:41 PM EST Narrative [facility] - 07/19/2024 2:08 AM EST Exclude Heart Failure: <300 pg/mL Diagnose Heart Failure: Age <50 yr: >450 pg/mL 50-75 yr: >900 pg/mL >75 yr: >1800 pg/mL GFR is 30-59 mL/min: >1200 pg/mL or Age-adjusted values GFR <30 mL/min: do not use, not reliable Prognostic threshold: 1000 pg/mL us Nicole Vinson MD LAB BLOOD OR DERABLES Final Result Performing Organization Address City/State/[facility] Co de Phone Number LABORATORY [address] [address] * TROPONIN T, HIGH SENSITIVITY (07/18/2024 3:41 PM EST) Pathologist [facility] Troponin T, High Sensitivity <6 <=14 ng/L 07/18/2024 10:30 PM EST [facility]ORY [facility] Blood Venous blood specimen / Unknown Venipuncture / Unknown 07/18/2024 3:41 PM EST 07/18/2024 3:41 PM EST us Nicole Vinson MD LAB BLOOD OR DERABLES Final Result [address] [address] documented in this encounter Visit Diagnoses Diagnosis [...] mL documented in this encounter Care Teams Account Receivable Clerk Relationship Specialty Start Date End Date Richard Marshall DO [address] [place] [address] [place] [id number] PCP - General Family Medicine 08/26/22 documented as of this encounter
--- OUTSIDE RECORDS SUMMARY | 2024-08-11 03:26 | External Medical Summary | Summary of Care ---
Author Name Unknown Organization [facility] Address [address] [facility] [place] [address] Phone [phone] Care Team Providers Care Control Clerk Food And Beverage Name Role Phone Richard Marshall DO Primary Care Provider [phone] Encounter Details Date Type Department Care Team (Late st Contact Info) Description 07/18/2024 Telephone Hematology/Oncology [facility] [place] [address] [facility] [address] Nicole Vinson MD Allergies Active Allergy Reactions Criticality Noted Date Comments Iodinated Contrast Media 07/05/2021 "itchy, rash and hives" CT Scan documented as of this encounter (statuses as of 07/28/2024) Medications Vitamin D (Cholecalciferol) 50 MCG (1999 UT) Oral Capsule Take by mouth at bedtime. Active Ferrous Sulfate 325 (65 Fe) MG Oral Tablet (Feosol) Take 1 Tablet by mouth at bedtime. Active Stiolto Respimat 2.5-2.5 MCG/ACT Inhalation Aerosol Solution (Tiotropium [place]-Olodaterol )Indications:COPD, severity to be determined (HCC) Inhale [...] as of this encounter (statuses as of 07/28/2024) Active Problems Problem Noted Date Diagnosed Date [...] as of this encounter (statuses as of 07/28/2024) Resolved Problems Problem Noted Date Diagnosed Date Resolved Date COPD, group A, by GOLD 2017 classification 07/07/2022 04/07/2024 Overview: Per COPD GOLD Classification COPD, severity to be determined 07/09/2021 07/10/2022 Overview: Per COPD GOLD Classification documented as of this encounter (statuses as of 07/28/2024) Immunizations Name Administration Dates Next Due Covid-19 [...] 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 Please schedule and remove hold. * Telephone Encounter - David Dickson OSA - 07/22/2024 12:20 PM EST Mayte, I called patient, and she accepted 08/10/24, with Lorena, at 1130 am. * Telephone Encounter - Mayte Quiroga RN - 07/22/2024 11:51 AM EST Acceptable to offer close in new [facility] or for sooner evaluation per request. Please route back with date/time confirmed. * Telephone Encounter - David Dickson OSA - 07/21/2024 8:01 AM EST Mayte, This patient would be new to the office, May I offer a sooner appointment here at , thank you. * Telephone Encounter - Whit Martinez RN - 07/21/2024 7:25 AM EST Echo 07/25/24. Cardiology appt 09/19/24. Cardiology: clearance is needed prior to patient resuming bevacizumab due to prior RI noted on 07/12/24 PET. Can this appt please be moved up? * Telephone Encounter - David Burton RN - 07/18/2024 10:[address] Vinson Alt today "HOLD AVASTIN UNTIL CLEARED BY CARDIOLOGY " Cardiology referral and Echo referral placed today. documented in this encounter Plan of Treatment Upcoming Encounters Date Type Department Care Team (Late st Contact Info) Description 08/08/2024 9:00 AM EST Laboratory Laboratory [facility] [place] [address] [place] [phone] [place] Lab [facility] 200 [facility] [place] [address] 08/08/2024 9:30 AM EST Office Visit Hematology/Oncology [facility] [place] [address] [place] [phone] Mayte Tatum CRNP [address] [place] [address] 08/08/2024 10:00 AM EST Hem/Onc Treatment Hematology/Oncology Treatment, [place] [address] [place], [place] [phone] Shereen, Chair 2 Hem Onc [facility] 200 [facility] [place] [address] 08/30/2024 9:00 AM EST Laboratory Laboratory [facility] [place] [address] [place] [address] Shereen Lab [address] Kar[address] [place] [address] 08/30/2024 10:00 AM EST Office Visit Hematology/Oncology [facility] [place] [address] [place] [phone] Yoav Schaefer MD [address] [place] [address] 08/30/2024 11:00 AM EST Hem/Onc Treatment Hematology/Oncology Treatment, [place] [address] [place] [phone] Shereen, Chair 1 Hem Onc [address] 200 [facility] [place] [address] 09/06/2024 8:45 AM EST Office Visit Ophthalmology, [facility] [address] [place] [address] Anthony Grey, DO [address] [place] [address] 03/10/2025 10:00 AM EDT Office Visit Sleep Disorders Ctr [facility] [address] [place] [phone] Margie Gutierrez, DO [address] [place] [address] Health Maintenance Due Date Last Done Comments [...] this encounter Medical Devices Implanted Type Area Supervisor Riveting Device Identifier Shelf Expiration Date Model / Serial / Lot Port Implant W8f Poly Cath - [id number] Implanted:Qty : 1 on 04/20/2024 by Nathan Hardwick MD at [facility] Right: Chest CR BARD : PERIPHERAL VASCULAR [id number] 06/25/2025 [id number] / / [id number] documented as of this encounter Care Teams Control Clerk Food And Beverage Relationship Specialty Start Date End Date Richard Marshall DO [address] [facility] [place] [address] PCP - General Family Medicine 08/26/22 documented as of this encounter
--- OUTSIDE RECORDS SUMMARY | 2024-08-11 03:26 | External Medical Summary | Summary of Care ---
Author Name Unknown Organization [facility] Address [address] [facility] [address] Phone [phone] Care Team Providers Care Central Supply Tech Name Role Phone Richard Marshall DO Primary Care Provider + [phone] Reason for Visit * Reason Comments Chemotherapy TAXOL/CARBO Nurse Documentation Hold MVASI * Episode Based Medications (Routine) - Authorized Specialty Diagnoses / Procedures Referred By Contac t Referred To Contact Diagnoses Cancer, metastatic to bone (HCC) 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) Encounter for antineoplastic chemotherapy Prevention of chemotherapy-induced neutropenia Procedures MI CARBOPLATIN INJECTION MI FOSAPREPITANT INJECTION MI INJ., ZIRABEV, 10 MG MI PACLITAXEL INJECTION MI INJECTION, UDENYCA 0.5 MG MI INJ MVASI 10 MG MI INJECTION, Nicole Wise MD Hematology/Oncology Treatment, [address] [address] Phone: tel: fax: Referral ID Status Reason Start Date Expiration Date V isits Requested Visits Authorized [id number] Authorized 05/31/2024 09/24/2024 [id number] Encounter Details Date Type Department Care Team (Latest Contact Info) Description 07/18/2024 10:00 AM EST Hem/Onc Treatment Hematology/Oncolog y Treatment, [address] [place] [address] Shereen, Chair 3 Hem Onc [address] [place] [address] Cancer, metastatic to bone (HCC)*; Lung [...] Respimat 2.5-2.5 MCG/ACT Inhalation Aerosol Solution (Tiotropium [place]-Olodaterol )Indications:COPD, severity to be determined (HCC) Inhale [...] 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 [address] [place] [phone] Christopher, Lab [facility] 200 [facility] [place] [address] 08/08/2024 9:30 AM EST Office Visit Hematology/Oncology [facility] [address] [place] [phone] Mayte Tatum CRNP [address] [place] [address] [place] [address] 08/08/2024 10:00 AM EST Hem/Onc Treatment Hematology/Oncology Treatment, [place] [address] [place] [phone] Shereen, Chair 2 Hem Onc [facility] 200 [facility] [place] [address] 08/30/2024 9:00 AM EST Laboratory Laboratory [facility] [address] [place] [phone] Shereen, Lab [address]enery [address] [place] [address] 08/30/2024 10:00 AM EST Office Visit Hematology/Oncology [facility] [place] [address] [place], [place] [phone] Yoav Schaefer MD [address] [place] [address] 08/30/2024 11:00 AM EST Hem/Onc Treatment Hematology/Oncology Treatment, [place] [address] [place], [place] [phone] Shereen, Chair 1 Hem Onc Scenery [address] [place], [place] [address] 09/06/2024 8:45 AM EST Office Visit Ophthalmology, [facility] [address] [place] [address] Anthony Grey, DO [address] [place] [address] 03/10/2025 10:00 AM EDT Office Visit Sleep Disorders Ctr [facility] [address] [place] [phone] Margie Gutierrez, DO [address] [place] [address] Health Maintenance Due Date Last Done Comments [...] this encounter Medical Devices Implanted Type Area General Merchandise Manager Device Identifier Shelf Expiration Date Model / Serial / Lot Port Implant W8f Poly Cath - [id number] Implanted:Qty : 1 on 04/20/2024 by Nathan Hardwick MD at [facility] Right: Chest CR BARD : PERIPHERAL VASCULAR [id number] 06/25/2025 [id number] / / [id number] documented as of this encounter Procedures Procedure Name Priority Date/Time Associated Diagnosis Comments TROPONIN T, HIGH SENSITIVITY Routine 07/18/2024 3:41 PM EST 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) BNP (NT-PROBNP) Routine 07/18/2024 3:41 PM EST 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) documented in this encounter Results * BNP, NT-PRO (07/18/2024 3:41 PM EST) BNP, NT-Pro 50 <300 pg/mL 07/19/2024 2:08 AM EST [place] [facility] [place] Venous blood specimen / Unknown Venipuncture / Unknown 07/18/2024 3:41 PM EST 07/18/2024 3:41 PM EST Narrative [place] [facility] [place] 07/19/2024 2:08 AM EST Exclude Heart Failure: <300 pg/mL Diagnose Heart Failure: Age <50 yr: >450 pg/mL 50-75 yr: >900 pg/mL >75 yr: >1800 pg/mL GFR is 30-59 mL/min: >1200 pg/mL or Age-adjusted values GFR <30 mL/min: do not use, not reliable Prognostic threshold: 1000 pg/mL us Nicole Vinson MD LAB BLOOD OR DERABLES Final Result Performing Organization Address City/State/[facility] Co de Phone Number LABORATORY [address] [address] * TROPONIN T, HIGH SENSITIVITY (07/18/2024 3:41 PM EST) Pathologist [facility] Troponin T, High Sensitivity <6 <=14 ng/L 07/18/2024 10:30 PM EST [place] [facility] [place] Venous blood specimen / Unknown Venipuncture / Unknown 07/18/2024 3:41 PM EST 07/18/2024 3:41 PM EST us Nicole Vinson MD LAB BLOOD OR DERABLES Final Result [address] [address] documented in this encounter Visit Diagnoses Diagnosis [...] mL documented in this encounter Care Teams Central Supply Tech Relationship Specialty Start Date End Date Richard Marshall DO [address] [place] [address] [place] [id number] PCP - General Family Medicine 08/26/22 documented as of this encounter
--- OUTSIDE RECORDS SUMMARY | 2024-08-11 03:27 | External Medical Summary | Summary of Care ---
Author Name Unknown Organization [facility] Address [address] [facility] [address] Phone [phone] Care Team Providers Care Financial Recruiter Name Role Phone Richard Marshall DO Primary Care Provider [phone] Reason for Visit * Reason Onset Date Comments Appointment 07/25/2024 Encounter Details Date Type Department Care Team (Late st Contact Info) Description 07/25/2024 Telephone Hematology/Oncology [facility] Shereen [place] [address] [place] [address] Mayte Tatum CRNP [address] [place] [address] Appointment Allergies Active Allergy Reactions Criticality Noted Date Comments Iodinated Contrast Media 07/05/2021 "itchy, rash and hives" CT Scan documented as of this encounter (statuses as of 07/25/2024) Medications Vitamin D (Cholecalciferol) 50 MCG (1999) Oral Capsule Take by mouth at bedtime. Active Ferrous Sulfate 325 (65 Fe) MG Oral Tablet (Feosol) Take 1 Tablet by mouth at bedtime. Active Stiolto Respimat 2.5-2.5 MCG/ACT Inhalation Aerosol Solution (Tiotropium [place]-Olodaterol )Indications:COPD, severity to be determined (HCC) Inhale [...] as of this encounter (statuses as of 07/25/2024) Active Problems Problem Noted Date Diagnosed Date [...] as of this encounter (statuses as of 07/25/2024) Resolved Problems Problem Noted Date Diagnosed Date Resolved Date COPD, group A, by GOLD 2017 classification 07/07/2022 04/07/2024 Overview: Per COPD GOLD Classification COPD, severity to be determined 07/09/2021 07/10/2022 Overview: Per COPD GOLD Classification documented as of this encounter (statuses as of 07/25/2024) Immunizations Name Administration Dates Next Due Covid-19 [...] 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 She states she is feeling better today, no vomiting, tolerating oral intake ok. K level normal at 3.5 -- she is aware this is borderline low. Scheduling- please cancel treatment for tomorrow per patient request. documented in this encounter Plan of Treatment Upcoming Encounters Date Type Department Care Team (Late st Contact Info) Description 08/08/2024 9:00 AM EST Laboratory Laboratory [place] [facility] [address] [place] [phone] [place], Lab [address] [place], [place] [address] 08/08/2024 9:30 AM EST Office Visit Hematology/Oncology [facility] [place] [address] [place], [place] [phone] Mayte Tatum, BUSINESS LINE CONTROLLER [address] [place] [address] 08/08/2024 10:00 AM EST Hem/Onc Treatment Hematology/Oncology [facility] 200 [facility], [place] [phone] Shereen, Chair 2 Hem Onc [address]en[address] 200 [facility] [place], [place] [address] 08/30/2024 9:00 AM EST Laboratory Laboratory [facility] [place] [address] [place], [place] [phone] Shereen Lab Scene 200 [facility] [place], [place] [address] 08/30/2024 10:00 AM EST Office Visit Hematology/Oncology [facility] [address] [place], [place] [phone] Yoav Schaefer MD [address] [place], [place] [address] 08/30/2024 11:00 AM EST Hem[facility] 200 [facility], [place] [phone] Shereen, Chair 1 Hem Onc Sc[address] [place], [place] [address] 09/06/2024 8:45 AM EST Office Visit Ophthalmology, [facility] [address] [place] [address] Anthony Grey, DO [address] [place] [address] 03/10/2025 10:00 AM EDT Office Visit Sleep Disorders Ctr [facility] [address] [place] [address] Margie Gutierrez, [address] [place] [address] Health Maintenance Due Date Last Done Comments [...] this encounter Medical Devices Implanted Type Area Cork Painter And Grader Device Identifier Shelf Expiration Date Model / Serial / Lot Port Implant W8f Poly Cath - [id number] Implanted:Qty : 1 on 04/20/2024 by Nathan Hardwick MD at [facility] Right: Chest CR BARD : PERIPHERAL VASCULAR [id number] 06/25/2025 [id number] / / [id number] documented as of this encounter Care Teams Financial Recruiter Relationship Specialty Start Date End Date Richard Marshall DO [address] [facility] [place] [address] PCP - General Family Medicine 08/26/22 documented as of this encounter
--- OUTSIDE RECORDS SUMMARY | 2024-08-11 03:27 | External Medical Summary | Summary of Care ---
Author Name Unknown Organization [facility] Address [address] [facility] [address] Phone [phone] Care Team Providers Care Cut In Worker Name Role Phone Richard Marshall DO Primary Care Provider [phone] Reason for Visit * Reason Onset Date Comments Appointment 07/25/2024 Encounter Details Date Type Department Care Team (Late st Contact Info) Description 07/25/2024 Telephone Hematology/Oncology [facility] Shereen [place] [address] [place] [place] [address] Mayte Tatum CRNP [address] [place] [address] Appointment Allergies Active Allergy Reactions [...] Respimat 2.5-2.5 MCG/ACT Inhalation Aerosol Solution (Tiotropium [place]-Olodaterol )Indications:COPD, severity to be determined (HCC) Inhale [...] 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, [place] [phone] Shereen, Chair 2 Hem Onc [address]en[address] 200 [facility] [place], [place] [address] 08/30/2024 9:00 AM EST Laboratory Laboratory [facility] [place] [address] [place], [place] [phone] Shereen Lab Scene 200 [facility] [place], [place] [address] 08/30/2024 10:00 AM EST Office Visit Hematology/Oncology [facility] [address] [place], [place] [phone] Yoav Schaefer MD [address] [place], [place] [address] 08/30/2024 11:00 AM EST [facility] 200 [facility], [place] [phone] Shereen, Chair 1 Hem Onc Scenery [address] [place], [place] [address] 09/06/2024 8:45 AM EST Office Visit Ophthalmology, [facility] [address] [place] [address] Anthony Grey, DO [address] [place] [address] 03/10/2025 10:00 AM EDT Office Visit Sleep Disorders Ctr [facility] [address] [place] [address] Margie Gutierrez, [address] [place] [address] Health Maintenance Due Date Last Done Comments [...] this encounter Medical Devices Implanted Type Area Brine Process Operator Device Identifier Shelf Expiration Date Model / Serial / Lot Port Implant W8f Poly Cath - [id number] Implanted:Qty : 1 on 04/20/2024 by Nathan Hardwick MD at [facility] Right: Chest CR BARD : PERIPHERAL VASCULAR [id number] 06/25/2025 [id number] / / [id number] documented as of this encounter Care Teams Cut In Worker Relationship Specialty Start Date End Date Richard Marshall DO [address] [facility] [place] [address] PCP - General Family Medicine 08/26/22 documented as of this encounter
--- OUTSIDE RECORDS SUMMARY | 2024-08-11 03:27 | External Medical Summary | Summary of Care ---
Author Name Unknown Organization [facility] Address [address] [facility] [place] [address] Phone [phone] Care Team Providers Care Air Control Electronics Operator Name Role Phone Richard Marshall DO Primary Care Provider [phone] Reason for Referral * Precert (Diagnostic Medical) (Within 10 days (routine)) - Pending Review Specialty Diagnoses / Procedures Referred By Contac t Referred To Contact Cardiac Studies Diagnoses 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) Procedures ECHO, COMPLETE (2D), TRANS-THORACIC Nicole Vinson MD Referral ID Status Reason Start Date Expiration Date Visits Requested Visits Authorized [id number] Pending Review Precert 07/25/[phone] Reason for Visit * Reason Onset Date Comments Cardiology Study 07/25/2024 Encounter Details Date Type Department Care Team (Late st Contact Info) Description 07/25/2024 Telephone Cardiac Studies, [facility] 132 [facility] [place] [address] Nicole Vinson MD Cardiology Study Allergies Active Allergy Reactions Criticality Noted Date Comments Iodinated Contrast Media 07/05/2021 "itchy, rash and hives" CT Scan documented as of this encounter (statuses as of 07/25/2024) Medications Vitamin D (Cholecalciferol) 50 MCG (1999 [place]) Oral Capsule Take by mouth at bedtime. Active Ferrous Sulfate 325 (65 Fe) MG Oral Tablet (Feosol) Take 1 Tablet by mouth at bedtime. 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 documented in this encounter Plan of Treatment Upcoming Encounters Date Type Department Care Team (Late st Contact Info) Description 07/26/2024 2:30 PM EST Hem/Onc Treatment Hematology/Oncology Treatment, [place] [address] [place] [address] Shereen, Chair 7 Hem Onc [place] [address] [place] [address] 08/08/2024 9:00 AM EST Laboratory [facility] [place] [address] [address] [place], [place] [phone] Shereen, Lab [address] [place], [place] [address] 08/08/2024 9:30 AM EST Office Visit [facility] [place] [address] [place], [place] [phone] Mayte Tatum CRNP [address] [place] [address] [place] [address] 08/08/2024 10:00 AM EST Hem[facility]Onc [facility] 200 [facility], [place] [phone] Shereen, Chair 2 Hem Onc [address] [place], [place] [address] 08/30/2024 9:00 AM EST Laboratory Laboratory [facility] [place] [address] [place], [place] [phone] Shereen, Lab [address] [place], [place] [address] 08/30/2024 10:00 AM EST Office Visit Hematology/Oncology [facility] [place] [address] [place], [place] [phone] Yoav Schaefer MD [address] [place], [place] [address] 08/30/2024 11:00 AM EST Hem/Onc [facility] 200 [facility], [place] [phone] Shereen, Chair 1 Hem Onc [address] [place], [place] [address] 09/06/2024 8:45 AM EST Office Visit Ophthalmology, [facility] [place] [address] Anthony Grey, DO [address] [place] [address] 03/10/2025 10:00 AM EDT Office Visit Sleep Disorders Ctr [facility] [address] [place] [phone] Margie Gutierrez, DO [address] [place] [address] Pending Results Name Type Priority Associated Diagnoses Date /Time ECHO, COMPLETE (2D), TRANS-THORACIC Echocardiology Routine 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) 07/25/2024 1:50 PM EST Scheduled Orders Name Type Priority Associated Diagnoses Orde r Schedule ECHO, COMPLETE (2D), TRANS-THORACIC Echocardiology Routine 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) Expected: 07/25/2024, Expires: 07/25/2025 Health Maintenance Due Date Last Done Comments [...] Lipid Panel 10/09/2026 10/09/2021, 07/09/2021 Diabetes Screening 07/22/2027 07/25/2024, 1 09/22/2023, 07/18/2024, Additional history exists [...] this encounter Medical Devices Implanted Type Area Special Education Supervisor Device Identifier Shelf Expiration Date Model / Serial / Lot Port Implant W8f Poly Cath - [id number] Implanted:Qty : 1 on 04/20/2024 by Nathan Hardwick MD at [facility] Right: Chest CR BARD : PERIPHERAL VASCULAR [id number] 06/25/2025 [id number] / / [id number] documented as of this encounter Visit Diagnoses Diagnosis 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)- Primary documented in this encounter Care Teams Air Control Electronics Operator Relationship Specialty Start Date End Date Richard Marshall DO [address] [place] [address] PCP - General Family Medicine 08/26/22 documented as of this encounter
--- OUTSIDE RECORDS SUMMARY | 2024-08-11 03:27 | External Medical Summary ---
Author Name Unknown Address Unknown Organization [id number]:LABORATORY [facility] [address] [address] [place] [address] Laboratory Report Ordering Provider Test Date Status BERNICE PARKER 07/25/2024 13:23:35 Final Observation Date Value Abnormality Reference (Units ) Status WBC, Total 07/25/2024 13:23:35 27.19 Above high normal 4 .00-10.80 (K/uL) Final RBC 07/25/2024 13:23:35 4.26 3.85-5.15 (M/uL) Final Hemoglobin 07/25/2024 13:23:35 13.4 12.0-15.3 (g/dL) Final HCT 07/25/2024 13:23:35 39.7 36.0-45.2 (%) Final MCV 07/25/2024 13:23:35 93.2 81.5-97.5 (fL) Final MCH 07/25/2024 13:23:35 31.5 27.0-34.0 (pg) Final MCHC 07/25/2024 13:23:35 33.8 32.0-36.0 (g/dL) Final RDW 07/25/2024 13:23:35 16.7 11.5-15.5 (%) Final Platelets 07/25/2024 13:23:35 260 140-400 (K /uL) Final MPV 07/25/2024 13:23:35 10.1 6.6-11.1 ( fL) Final Performing Location LABORATORY [facility] [address] [address] [place] [address]
--- OUTSIDE RECORDS SUMMARY | 2024-08-11 03:27 | External Medical Summary | Summary of Care ---
Author Name Unknown Organization [facility] Address [address] [facility] [place] [address] Phone [phone] Care Team Providers Care Client Resource Specialist Name Role Phone Richard Marshall DO Primary Care Provider [phone] Reason for Visit * Reason Onset Date Comments Test Results Lab 07/22/2024 Encounter Details Date Type Department Care Team (Late st Contact Info) Description 07/22/2024 Telephone Hematology/Oncology [facility] [place] [address] [facility] [phone] Rush Tatum CRNP [address] [place] [address] Test Results Lab Allergies Active Allergy Reactions Criticality Noted Date Comments Iodinated Contrast Media 07/05/2021 "itchy, rash and hives" CT Scan documented as of this encounter (statuses as of 07/22/2024) Medications Vitamin D (Cholecalciferol) 50 MCG (1999 UT) Oral Capsule Take by mouth at bedtime. Active Ferrous Sulfate 325 (65 Fe) MG Oral Tablet (Feosol) Take 1 Tablet by mouth at bedtime. Active Stiolto Respimat 2.5-2.5 MCG/ACT Inhalation Aerosol Solution (Tiotropium Winif[place]-Olodaterol )Indications:COPD, severity to be determined (HCC) Inhale [...] 1 Capsule before bedtime. 40 Capsule 07/22/20 Active Hospital, Clinic, or Other Facility Administered Medication Ordered Dose Route Frequency Start Date End Date Status bevaCIZumab (Avastin) inj 1.25 mgIndications:Radiation retinopathy, subsequent encounter 1.25 mg IZ PRN 10/08/2023 10/07/2024 Active ROPivacaine (Naropin) inj 1.5 mgIndications:Radiation retinopathy, subsequent encounter 1.5 mg IJ PRN 10/08/2023 10/07/2024 Active documented as of this encounter (statuses as of 07/22/2024) Active Problems Problem Noted Date Diagnosed Date [...] as of this encounter (statuses as of 07/22/2024) Resolved Problems Problem Noted Date Diagnosed Date Resolved Date COPD, group A, by GOLD 2017 classification 07/07/2022 04/07/2024 Overview: Per COPD GOLD Classification COPD, severity to be determined 07/09/2021 07/10/2022 Overview: Per COPD GOLD Classification documented as of this encounter (statuses as of 07/22/2024) Immunizations Name Administration Dates Next Due Covid-19 [...] 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 * Addendum Note - Rush Tatum CRNP - 07/22/2024 2:57 PM ESTAddended by: RUSH TATUM on: 07/22/2024 02:57 PM Modules accepted: Orders * Telephone Encounter - Rush Tatum CRNP - 07/22/2024 2:57 PM EST Alteration placed. * Telephone Encounter - David Burton RN - 07/22/2024 2:44 PM EST K 3.2 Per Rush- give 10mEq potassium IV today. Give print out on potassium rich foods, encourage increase in oral intake over the weekend. Printed by RN in tx and given to patient. Rush- please place order for 10mEq potassium IV today. documented in this encounter Plan of Treatment Upcoming Encounters Date Type Department Care Team (Late st Contact Info) Description 07/25/2024 1:00 PM EST Laboratory [facility] 132 [facility] [place] [phone] [facility] [address] [place] [address] 07/25/2024 2:00 PM EST Cardiac Studies [facility] Studies, [facility] 132 [facility] [place] [address] 07/26/2024 2:30 PM EST Hem/Onc Treatment Hematology/Oncology Treatment, [place] [address] [place], [place] [phone] Shereen, Chair 7 Hem Onc [facility] [place] [address] 08/08/2024 9:00 AM EST Laboratory Laboratory [facility] [place] [address] [place] [phone] [place] Lab [facility] 200 [facility] [place] [address] 08/08/2024 9:30 AM EST Office Visit Hematology/Oncology [facility] [address] [place] [phone] Rush Tatum CRNP 400 [facility] [place] [address] 08/08/2024 10:00 AM EST Hem/Onc Treatment Hematology/Oncology Treatment, [place] [address] [place] [address] Shereen, Chair 2 Hem Onc [facility] [address] [place] [address] 09/06/2024 8:45 AM EST Office Visit Ophthalmology, [facility] [address] [place] [address] Anthony Grey, DO [address] [place] [address] 03/10/2025 10:00 AM EDT Office Visit Sleep Disorders [facility] [address] [place] [phone] Margie Gutierrez, DO [address] [place] [address] Health Maintenance Due Date Last Done Comments [...] Panel 10/09/2026 10/09/2021, 07/09/2021 Diabetes Screening 07/22/2027 07/22/2024, 1 09/18/2023, 06/27/2024, Additional history exists Alpha-1 Antitrypsin Completed 10/09/2021 [...] this encounter Medical Devices Implanted Type Area Respite Worker Device Identifier Shelf Expiration Date Model / Serial / Lot Port Implant W8f Poly Cath - [id number] Implanted:Qty : 1 on 04/20/2024 by Nathan Hardwick MD at [facility] Right: Chest CR BARD : PERIPHERAL VASCULAR [id number] 06/25/2025 [id number] / / [id number] documented as of this encounter Visit Diagnoses Diagnosis Hypokalemia- Primary Hypopotassemia documented in this encounter Care Teams Client Resource Specialist Relationship Specialty Start Date End Date Richard Marshall DO [address] [place] [address] PCP - General Family Medicine 08/26/22 documented as of this encounter
--- OUTSIDE RECORDS SUMMARY | 2024-08-11 03:27 | External Medical Summary | Summary of Care ---
Author Name Unknown Organization [facility] Address [address] [facility] [place] [address] Phone [phone] Care Team Providers Care Cellular Equipment Repairer Name Role Phone Richard Marshall DO Primary Care Provider [phone] Reason for Visit * Reason Onset Date Comments Test Results Lab 07/22/2024 Encounter Details Date Type Department Care Team (Late st Contact Info) Description 07/22/2024 Telephone Hematology/Oncology [facility] [place] 200 [facility] [phone] Rush Tatum CRNP [address] [place] [address] Test Results Lab Allergies Active [...] Respimat 2.5-2.5 MCG/ACT Inhalation Aerosol Solution (Tiotropium [place]-Olodaterol )Indications:COPD, severity to be determined (HCC) Inhale [...] 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 on 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 Not on f ile documented as of this encounter Miscellaneous Notes * Addendum Note - Rush Tatum CRNP - 07/22/2024 3:42 PM ESTAddended by: RUSH TATUM on: 07/22/2024 03:42 PM Modules accepted: Orders * Telephone Encounter - Rush Tatum CRNP - 07/22/2024 3:42 PM EST Alteration placed * Telephone Encounter - David Burton RN - 07/22/2024 3:29 PM EST Rush- having patient complete labs on Thursday (she was unable to schedule for hydration/?KCL the same day) Please place alteration "Give 1L NSS on 07/26 and PRN KCL 20mEq for K < 3.5" N:S- please review labs on Thursday- patient going to [facility] at 1:45 for this. * Addendum Note [...] Description 07/25/2024 1:00 PM EST Laboratory Laboratory, [facility] 132 [facility] [place] [phone] [facility] [address] [facility] [place] [address] 07/25/2024 2:00 PM EST Cardiac Studies Cardiac Studies, [facility] 132 [facility] [place] [address] 07/26/2024 2:30 PM EST Hem/Onc Treatment Hematology/Oncology Treatment, [place] [address] [place] [phone] Shereen, Chair 7 Hem Onc [facility] 200 [facility] [address] 08/08/2024 9:00 AM EST Laboratory Laboratory [facility] [address] [place] [phone] Shereen, Lab Scenery [address] [place], [place] [address] 08/08/2024 9:30 AM EST Office Visit Hematology/Oncology [facility] [place] [address] [place] [phone] Rush Tatum CRNP 400 [facility] [place] [address] 08/08/2024 10:00 AM EST Hem/Onc Treatment Hematology/Oncology Treatment, [place] [address] [place] [phone] Shereen, Chair 2 Hem Onc [place] [address] [place] [address] 09/06/2024 8:45 AM EST Office Visit Ophthalmology, [facility] [address] [facility] [place] [address] Anthony Grey, DO [address] [place] [address] 03/10/2025 10:00 AM EDT Office Visit Sleep Disorders [facility] [address] [facility] [place] [phone] Margie Gutierrez, DO [address] [place] [address] Health Maintenance Due Date Last Done Comments [...] this encounter Medical Devices Implanted Type Area Stone Finisher Device Identifier Shelf Expiration Date Model / Serial / Lot Port Implant W8f Poly Cath - [id number] Implanted:Qty : 1 on 04/20/2024 by Nathan Hardwick MD at [facility] Right: Chest CR BARD : PERIPHERAL VASCULAR [id number] 06/25/2025 [id number] / / [id number] documented as of this encounter Visit Diagnoses Diagnosis Hypokalemia- Primary Hypopotassemia documented in this encounter Care Teams Cellular Equipment Repairer Relationship Specialty Start Date End Date Richard Marshall DO [address] [place] [id number] PCP - General Family Medicine 08/26/22 documented as of this encounter
--- OUTSIDE RECORDS SUMMARY | 2024-08-11 03:27 | External Medical Summary | Summary of Care ---
Author Name Unknown Organization [facility] Address [address] [facility] [address] Phone [phone] Care Team Providers Care Mission Systems Engineer Name Role Phone Richard Marshall DO Primary Care Provider [phone] Reason for Visit * Reason Comments Outpatient Testing Encounter Details Date Type Department Care Team (Late st Contact Info) Description 07/25/2024 1:00 PM EST Laboratory Laboratory, [facility] 132 [facility] [place] [phone] [facility] 132 [facility] [address] 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) Allergies [...] Respimat 2.5-2.5 MCG/ACT Inhalation Aerosol Solution (Tiotropium [place]-Olodaterol )Indications:COPD, severity to be determined ([facility]) Inhale 2 Puffs by mouth [...] 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 Not on file Not on f ile documented as of this encounter Plan of Treatment Upcoming Encounters Date Type Department Care Team (Late st Contact Info) Description 08/08/2024 9:00 AM EST Laboratory Laboratory [facility] [address] [place] [phone] [place] [address] 08/08/2024 9:30 AM EST Office Visit Hematology/Oncology [facility] [place] [address] [place] [phone] Mayte Tatum CRNP [address] [place], [place] [address] [address] 08/08/2024 10:00 AM EST [facility] [address] [place] [phone] Shereen, Chair 2 Hem Onc [facility] [place] [place] [address] 08/30/2024 9:00 AM EST Laboratory Laboratory [facility] [address] [place] [phone] [place] [address] 08/30/2024 10:00 AM EST Office Visit Hematology/Oncology [facility] [place] [address] [place] [phone] Yoav Schaefer MD [address] [place] [address] 08/30/2024 11:00 AM EST Hem/Onc Treatment Hematology/Oncology Treatment, [place] [address] [place] [phone] Shereen, Chair 1 Hem Onc [facility] 200 [facility] [place] [address] 09/06/2024 8:45 AM EST Office Visit Ophthalmology, [facility] [address] [place] [address] Anthony Grey, DO [address] [place] [address] 03/10/2025 10:00 AM EDT Office Visit Sleep Disorders [facility] [address] [place] [phone] Margie Gutierrez, DO [address] [place] [address] Health Maintenance Due Date Last Done Comments [...] this encounter Medical Devices Implanted Type Area Vp Publisher Development Device Identifier Shelf Expiration Date Model / Serial / Lot Port Implant W8f Poly Cath - [id number] Implanted:Qty : 1 on 04/20/2024 by Nathan Hardwick MD at [facility] Right: Chest CR BARD : PERIPHERAL VASCULAR [id number] 06/25/2025 [id number] / / [id number] documented as of this encounter Procedures Procedure Name Priority Date/Time Associated Diagnosis Comments DIFFERENTIAL, AUTOMATED STAT 07/25/2024 1:23 PM EST 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) COMPREHENSIVE METABOLIC PANEL STAT 07/25/2024 1:23 PM EST 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) CBC STAT 07/25/2024 1:23 PM EST 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) CBC STAT 07/25/2024 1:23 PM EST 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) DIFFERENTIAL, TECHNOLOGIST REVIEW Routine 07/25/2024 1:23 PM EST 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) documented in this encounter Results * (ABNORMAL) DIFFERENTIAL, TECHNOLOGIST REVIEW (07/25/2024 1:23 PM EST) WBC 27.19(H) 4.00 - 10.80 K/uL 07/25/2024 1:56 PM EST LAB[facility] [place] [facility]10 Neutrophils % 85.0(H) 40.0 - 75.0 % 07/25/2024 1:56 PM EST [facility] [place] [facility]10 Lymphocytes % 11.0(L) 18.0 - 42.0 % 07/25/2024 1:56 PM EST [facility] [place] [facility]10 Monocytes % 4.0 1.0 - 11.0 % 07/25/2024 1:56 PM EST [facility] [place] [facility]10 Absolute Neutrophils 23.11(H) 1.80 - 7.70 K/uL 07/25/2024 1:56 PM EST [facility] [place] [facility]10 Absolute Lymphocytes 2.99 1.00 - 4.80 K/uL 07/25/2024 1:56 PM EST [facility] [place] 57[facility]10 Absolute Monocytes 1.09 0.00 - 1.10 K/uL 07/25/2024 1:56 PM EST LAB[facility] [place] 57[facility]10 nRBCs 07/25/2024 1:56 PM EST [facility] [place] 57[facility]10 Reactive Lymphocytes Present(A ) None Seen 07/25/2024 1:56 PM EST [facility] [place] 57[facility]10 Blood Venous blood specimen / Unknown Venipuncture / Unknown 07/25/2024 1:23 PM EST 07/25/2024 1:23 PM EST us Yoav Schaefer MD LAB BLOOD ORDERABLES Final Res ult [facility] [place] 57[facility]10 132 [place] [address] * DIFFERENTIAL, AUTOMATED (07/25/2024 1:23 PM EST) Blood Venous blood specimen / Unknown Venipuncture / Unknown 07/25/2024 1:23 PM EST 07/25/2024 1:23 PM EST us Yoav Schaefer MD LAB BLOOD ORDERABLES Final Res ult [facility] [place] [facility]10 [address] [place], [place] [address] * (ABNORMAL) CBC (07/25/2024 1:23 PM EST) WBC 27.19(H) 4.00 - 10.80 K/uL 07/25/2024 1:56 PM EST LAB[facility] [place] [facility]10 RBC 4.26 3.85 - 5.15 M/uL 07/25/2024 1:56 PM EST [facility] [place] 57[facility]10 HGB 13.4 12.0 - 15.3 g/dL 07/25/2024 1:56 PM EST [facility] [place] [facility]10 HCT 39.7 36.0 - 45.2 % 07/25/2024 1:56 PM EST [facility] [place] [facility]10 MCV 93.2 81.5 - 97.5 fL 07/25/2024 1:56 PM EST [facility] [place] [facility]10 MCH 31.5 27.0 - 34.0 pg 07/25/2024 1:56 PM EST [facility] [place] 57[facility]10 MCHC 33.8 32.0 - 36.0 g/dL 07/25/2024 1:56 PM EST [facility] [place] [facility]10 RDW 16.7 11.5 - 15.5 % 07/25/2024 1:56 PM EST [facility] [place] 57[facility]10 PLT 260 140 - 400 K/uL 07/25/2024 1:56 PM EST [facility] [place] 57[facility]10 MPV 10.1 6.6 - 11.1 fL 07/25/2024 1:56 PM EST [facility] [place] [facility]10 Blood Venous blood specimen / Unknown Venipuncture / Unknown 07/25/2024 1:23 PM EST 07/25/2024 1:23 PM EST us Yoav Schaefer MD LAB BLOOD ORDERABLES Final Res ult [facility] [place] 57[facility]10 132 [place] [address] * (ABNORMAL) COMPREHENSIVE METABOLIC PANEL (07/25/2024 1:23 PM EST) BUN 13 6 - 20 mg/dL 07/25/2024 1:56 PM EST LABORATORY [facility] 57-10 CREATININE 0.6 0.5 - 1.0 mg/dL 07/25/2024 1:56 PM EST LABORATORY [facility] 57-10 EGFR >90 >=60 mL/min 07/25/2024 1:56 PM EST LABORATORY [facility] 57-10 Comment:eGFR is calculated b ased on the CKD-EPI 2020 equation. SODIUM 140 135 - 146 mmol/L 07/25/2024 1:56 PM EST LAB[facility]ATORY [place] 57-10 POTASSIUM 3.5 3.5 - 5.1 mmol/L 07/25/2024 1:56 PM EST LABORATORY [facility] 57-10 CHLORIDE 98 98 - 107 mmol/L 07/25/2024 1:56 PM EST LABORATORY [facility] 57-10 CO2 28 22 - 32 mmol/L 07/25/2024 1:56 PM EST LABORATORY [facility] 57-10 ANION GAP 14 7 - 15 mmol/L 07/25/2024 1:56 PM EST LAB[facility]ATORY [place] 57-10 GLUCOSE 134(H) 70 - 120 mg/dL 07/25/2024 1:56 PM EST LABORATORY [place] [facility] 57-10 Albumin 4.5 3.8 - 5.0 g/dL 07/25/2024 1:56 PM EST LABORATORY [place] [facility] 57-10 AST 21 10 - 35 U/L 07/25/2024 1:56 PM EST LABORATORY [place] [facility] 57-10 Alkaline Phosphatase 197(H) 35 - 130 U/L 07/25/2024 1:56 PM EST LABORATORY [place] [facility] 57-10 Bilirubin, Total 0.4 <=1.2 mg/dL 07/25/2024 1:56 PM EST LABORATORY [place] [facility] 57-10 CALCIUM 10.1 8.4 - 10.2 mg/dL 07/25/2024 1:56 PM EST LAB[facility] [place] 57[facility]10 Protein 7.4 6.0 - 8.3 g/dL 07/25/2024 1:56 PM EST [facility] [place] 57[facility]10 ALT 29 10 - 35 U/L 07/25/2024 1:56 PM EST [facility] [place] 57-10 Blood Venous blood specimen / Unknown Venipuncture / Unknown 07/25/2024 1:23 PM EST 07/25/2024 1:23 PM EST us Yoav Schaefer MD LAB BLOOD ORDERABLES Final Res ult [facility]10 132 [facility] [place] [address] documented in this encounter Visit Diagnoses Diagnosis 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) documented in this encounter Care Teams Mission Systems Engineer Relationship Specialty Start Date End Date Richard Marshall DO 16 [facility] [place] [address] PCP - General Family Medicine 08/26/22 documented as of this encounter
--- OUTSIDE RECORDS SUMMARY | 2024-08-11 03:27 | External Medical Summary ---
Author Name Unknown Address Unknown Organization [id number]AT[facility] [place] [address] - [address] [place] [address] Laboratory Report Ordering Provider Test Date Status BERNICE PARKER 07/25/2024 13:23:35 Final Observation Date Value Abnormality Reference (Units ) Status BUN 07/25/2024 13:23:35 13 6-20 (mg/dL) Final Creatinine 07/25/2024 13:23:35 0.6 0.5-1.0 (mg/dL) Final Glomerular filtration rate/1.73 sq M.predicted [Volume Rate/Area] in Serum, Plasma or Blood by Creatinine-based formula (CKD-EPI) 07/25/2024 13:23:35 >90 >=60 (mL/min) Final eGFR is calculated based on the CKD-EPI 2020 equation. Sodium 07/25/2024 13:23:35 140 135-146 (m mol/L) Final Potassium 07/25/2024 13:23:35 3.5 3.5-5.1 (m mol/L) Final Cl 07/25/2024 13:23:35 98 98-107 (mm ol/L) Final CO2 07/25/2024 13:23:35 28 22-32 (mmo l/L) Final Anion gap 07/25/2024 13:23:35 14 7-15 (mmol /L) Final Glucose 07/25/2024 13:23:35 134 Above high normal 70 -120 (mg/dL) Final Albumin 07/25/2024 13:23:35 4.5 3.8-5.0 (g /dL) Final AST (Aspartate aminotransferase) 07/25/2024 13:23:35 21 10-35 (U/L) Fin al Alk Phos 07/25/2024 13:23:35 197 Above high normal 35 -130 (U/L) Final Bilirubin, Total 07/25/2024 13:23:35 0.4 <=1 .2 (mg/dL) Final Calcium 07/25/2024 13:23:35 10.1 8.4-10.2 ( mg/dL) Final Protein 07/25/2024 13:23:35 7.4 6.0-8.3 (g /dL) Final ALT (Alanine aminotransferase) 07/25/2024 13:23:35 29 10-35 (U/L) Brian morrow Performing Location LABORATORY [place] 57-1 0 - [address] [facility] [address]
--- OUTSIDE RECORDS SUMMARY | 2024-08-11 03:27 | External Medical Summary | Summary of Care ---
Author Name Unknown Organization [facility] Address [address] [facility] [address] Phone [phone] Care Team Providers Care Glass Bender Name Role Phone Richard Marshall DO Primary Care Provider [phone] Reason for Visit * Reason Comments Infusion Hydration and lab dr ibarra Encounter Details Date Type Department Care Team (Latest Contact Info) Description 07/22/2024 1:00 PM EST Hem/Onc Treatment Hematology/Oncology Treatment, [place] [address] [place] [address] Shereen, Chair 8 Hem Onc Scenery [address] [place] [address] Dehydration*; 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) Allergies Active Allergy Reactions Criticality Noted Date Comments Iodinated Contrast Media 07/05/2021 "itchy, rash and hives" CT Scan documented as of this encounter (statuses as of 07/22/2024) Medications Vitamin D (Cholecalciferol) 50 MCG (1999) Oral Capsule Take by mouth at bedtime. Active Ferrous Sulfate 325 (65 Fe) MG Oral Tablet (Feosol) Take 1 Tablet by mouth at bedtime. Active Stiolto Respimat 2.5-2.5 MCG/ACT Inhalation Aerosol Solution (Tiotropium [place]-Olodaterol )Indications:COPD, severity to be determined ([facility]) Inhale 2 Puffs by mouth daily. 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 Not [...] Description 07/25/2024 1:00 PM EST Laboratory Laboratory, [facility] [place] [address] [facility] [place] [phone] Dillon Luther [address] [place] [address] 07/25/2024 2:00 PM EST Cardiac Studies Cardiac Studies, Roshni Luther, [place] 132 [facility] [place] [address] 07/26/2024 2:30 PM EST Hem/Onc Treatment Hematology/Oncology Treatment, [place] [address] [place] [phone] Shereen, Chair 7 Hem Onc Scenery 200 [facility] [place] [address] 08/08/2024 9:00 AM EST Laboratory Laboratory [facility] State Linda Regan [address] [place] [phone] Shereen Lab [facility] 200 [facility] [place] [address] 08/08/2024 9:30 AM EST Office Visit Hematology/Oncology [facility] Shereen [place] [address] [place] [phone] Mayte Tatum CRNP [address] [place] [address] 08/08/2024 10:00 AM EST Hem/Onc Treatment Hematology/Oncology Treatment, [place] [address] [place] [phone] Shereen, Chair 2 Hem Onc Scenery [address] [place] [address] 09/06/2024 8:45 AM EST Office Visit Ophthalmology, [facility] [address] [place] [address] Anthony Grey, DO [address] [place] [address] 03/10/2025 10:00 AM EDT Office Visit Sleep Disorders Ctr [facility] [address] [place] [phone] Margie Gutierrez, DO [address] [place] [address] Health Maintenance Due Date Last Done Comments [...] this encounter Medical Devices Implanted Type Area Np Device Identifier Shelf Expiration Date Model / Serial / Lot Port Implant W8f Poly Cath - [id number] Implanted:Qty : 1 on 04/20/2024 by Nathan Hardwick MD at [facility] Right: Chest CR BARD : PERIPHERAL VASCULAR [id number] 06/25/2025 [id number] / / [id number] documented as of this encounter Procedures Procedure [...] TECHNOLOGIST REVIEW (07/22/2024 12:56 PM EST) Pathologist [facility] 07/22/2024 2:01 PM EST [facility] Blood Venous blood specimen / Unknown Central Line / Unknown 07/22/2024 12:56 PM EST 07/22/2024 1:32 PM EST us Yoav Schaefer MD LAB BLOOD ORDERABLES Final Res ult [facility] [address] [place] [address] * (ABNORMAL) DIFFERENTIAL, AUTOMATED (07/22/2024 12:56 PM EST) WBC 30.87(H) 4.00 - 10.80 K/uL 07/22/2024 2:01 PM EST [facility] Neutrophils % 93.3(H) 40.0 - 75.0 % 07/22/2024 2:01 PM [facility] Lymphocytes % 5.0(L) 18.0 - 42.0 % 07/22/2024 2:01 PM [facility] 56 Monocytes % 1.2 1.0 - 11.0 % 07/22/2024 2:01 PM [facility] 56 Eosinophils % 0.4 0.0 - 6.0 % 07/22/2024 2:01 PM [facility] 56 Basophils % 0.1 0.0 - 2.0 % 07/22/2024 2:01 PM [facility] 56 Absolute Neutrophils 28.80(H) 1.80 - 7.70 K/uL 07/22/2024 2:01 PM [facility] 56- Absolute Lymphocytes 1.54 1.00 - 4.80 K/ul 07/22/2024 2:01 PM [facility] 56 Absolute Monocytes 0.37 0.00 - 1.10 K/uL 07/22/2024 2:01 PM [facility] 56 Absolute Eosinophils 0.12 0.00 - 0.70 K/uL 07/22/2024 2:01 PM [facility] 56 Absolute Basophils 0.04 0.00 - 0.20 K/uL 07/22/2024 2:01 PM [facility] 56 Blood Venous blood specimen / Unknown Central Line / Unknown 07/22/2024 12:56 PM EST 07/22/2024 1:32 PM EST Yoav Schaefer MD LAB BLOOD ORDERABLES Final Res ult [address] [place], [place] [address] * (ABNORMAL) CBC (07/22/2024 12:56 PM EST) WBC 30.87(H) 4.00 - 10.80 K/uL 07/22/2024 1:[address] RBC 4.44 3.85 - 5.15 M/uL 07/22/2024 1:52 PM [place] [address] HGB 13.7 12.0 - 15.3 g/dL 07/22/2024 1:[address] HCT 41.1 36.0 - 45.2 % 07/22/2024 1:52 PM [facility] 56 MCV 92.6 81.5 - 97.5 fL 07/22/2024 1:52 PM [facility] 56 MCH 30.9 27.0 - 34.0 pg 07/22/2024 1:52 PM [facility] 56 MCHC 33.3 32.0 - 36.0 g/dL 07/22/2024 1:52 PM [facility] 56 RDW 17.8 11.5 - 15.5 % 07/22/2024 1:52 PM [facility] 56 PLT 234 140 - 400 K/uL 07/22/2024 1:52 PM [facility] 56 MPV 10.5 6.6 - 11.1 fL 07/22/2024 1:52 PM [facility] 56 Blood Venous blood specimen / Unknown Central Line / Unknown 07/22/2024 12:56 PM EST 07/22/2024 1:32 PM EST Yoav Schaefer MD LAB BLOOD ORDERABLES Final Res ult [facility] [address] [place] [address] * (ABNORMAL) COMPREHENSIVE METABOLIC PANEL (07/22/2024 12:56 PM EST) BUN 20 6 - 20 mg/dL 07/22/2024 1:51 PM EST [facility] 56 CREATININE 0.6 0.5 - 1.0 mg/dL 07/22/2024 1:51 PM EST [facility] 56 EGFR >90 >=60 mL/min 07/22/2024 1:51 PM [facility] Comment:eGFR is calculated b ased on the CKD-EPI 2020 equation. SODIUM 136 135 - 146 mmol/L 07/22/2024 1:51 PM [facility] 56 POTASSIUM 3.2(L) 3.5 - 5.1 mmol/L 07/22/2024 1:51 PM [facility] CHLORIDE 97(L) 98 - 107 mmol/L 07/22/2024 1:51 PM [facility] 56 CO2 19(L) 22 - 32 mmol/L 07/22/2024 1:51 PM [facility] 56 ANION GAP 20(H) 7 - 15 mmol/L 07/22/2024 1:51 PM [facility] 56 GLUCOSE 159(H) 70 - 120 mg/dL 07/22/2024 1:51 PM [facility] 56 Albumin 4.1 3.8 - 5.0 g/dL 07/22/2024 1:51 PM [facility] 56 AST 23 10 - 35 U/L 07/22/2024 1:51 PM [facility] 56 Alkaline Phosphatase 147(H) 35 - 130 U/L 07/22/2024 1:51 PM [facility] 56 Bilirubin, Total 0.9 <=1.2 mg/dL 07/22/2024 1:51 PM [facility] 56 CALCIUM 9.1 8.4 - 10.2 mg/dL 07/22/2024 1:51 PM [facility] 56-02 Protein 7.2 6.0 - 8.3 g/dL 07/22/2024 1:51 PM EST [facility] 56- ALT 27 10 - 35 U/L 07/22/2024 1:51 PM EST [facility] 56- Blood Venous blood specimen / Unknown Central Line / Unknown 07/22/2024 12:56 PM EST 07/22/2024 1:32 PM EST Yoav Schaefer MD LAB BLOOD ORDERABLES Final Res ult [facility] 56- [address] [place] [address] documented in this encounter Visit Diagnoses Diagnosis Dehydration- Primary 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) documented in this encounter Administered Medications Active Administered Medications - up to 3 most recent administrations Medication Order MAR Action Action Date Dose Rate Site hEParin 100 UNIT/ML Lock Flush inj 500 Units 500 Units (5 mL), IV Lock, PRN Other, IV Flush, Starting on Thu07/22/24 at 1320, Until 07/23/24 at 1319, For 24 hours, Do not flush if lock, PICC, or central line not in place; IV infusing or unable to flush.Indications: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),Dehydration sodium chloride 0.9 % flush central line 10 mL 10 mL, IV Push, PRN Other, IV Flush, Starting on Thu07/22/24 at 1320, Until 07/23/24 at 1319, For 24 hours, Do not flush if lock, PICC, or central line not in place; IV infusing or unable to flush.Indications: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),Dehydration Inactive Administered Medications - up to 3 [...] mL/hr documented in this encounter Care Teams Glass Bender Relationship Specialty Start Date End Date Richard Marshall DO [address] [place], [place] [id number] PCP - General Family Medicine 08/26/22 documented as of this encounter
--- OUTSIDE RECORDS SUMMARY | 2024-08-11 03:27 | External Medical Summary ---
Author Name Unknown Address Unknown Organization [facility] [address] [place] [address] Laboratory Report Ordering Provider Test Date Status BERNICE PARKER 07/25/2024 13:23:35 Final Observation Date Value Abnormality Reference (Units ) Status SYNC LEUKOCYTES IN BLOOD BY AUTOMATED COUNT 07/25/2024 13:23:35 27.19 Above high normal 4.00-10.80 (K/uL) Final Neutrophils/100 leukocytes in Blood by Manual count 07/25/2024 13:23:35 85.0 Above high normal 40.0-75.0 (%) Final Lymphocytes/100 leukocytes in Blood by Manual count 07/25/2024 13:23:35 11.0 Below low normal 18.0-42.0 (%) Final Monocytes/100 leukocytes in Blood by Manual count 07/25/2024 13:23:35 4.0 1.0-11.0 (%) Final Neutrophils [#/volume] in Blood by Manual count 07/25/2024 13:23:35 23.11 Above high normal 1.80-7.70 (K/uL) Final Lymphocytes [#/volume] in Blood by Manual count 07/25/2024 13:23:35 2.99 1.00-4.80 (K/uL) Final Monocytes [#/volume] in Blood by Manual count 07/25/2024 13:23:35 1.09 0.00-1.10 (K/uL) Final Nucleated erythrocytes/100 leukocytes [Ratio] in Blood by Automated count 07/25/2024 13:23:35 Final Variant lymphocytes [Presence] in Blood by Light microscopy 07/25/2024 13:23:35 Present Abnormal None Seen Final Performing Location [facility] [address] [place] [address]
--- OUTSIDE RECORDS SUMMARY | 2024-08-11 03:27 | External Medical Summary | Summary of Care ---
Author Name Unknown Organization [facility] Address [address] [facility] [place] [address] Phone [phone] Care Team Providers Care Playroom Attendant Name Role Phone Richard Marshall DO Primary Care Provider [phone] Encounter Details Date Type Department Care Team (Late st Contact Info) Description 07/22/2024 Orders Only Hematology/Oncology [facility] Shereen [place] [address] [facility] [address] Mayte Tatum CRNP [address] [facility] [place] [address] Allergies Active Allergy Reactions Criticality Noted Date [...] Respimat 2.5-2.5 MCG/ACT Inhalation Aerosol Solution (Tiotropium [place]-Olodaterol )Indications:COPD, severity to be determined (HCC) Inhale [...] 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 Not on f ile documented as of this encounter Plan of Treatment Upcoming Encounters Date Type Department Care Team (Late st Contact Info) Description 07/25/2024 1:00 PM EST [facility] [place] 132 [facility] Ramon CABRERA [place] [phone] LutherDillon lovelace [address]AM[address] [address] 07/25/2024 2:00 PM EST Cardiac Studies [facility] 132 [facility] DEBORAH [place] [address] 07/26/2024 2:30 PM EST Hem/Onc Treatment Hematology/Oncology Treatment, [place] [address] [place] [phone] Shereen, Chair 7 Hem Onc [facility] 200 Mario Alberto [place] [address] 08/08/2024 9:00 AM EST Laboratory Laboratory [facility] Shereen [place] [address]la [address] [place] [phone] Dillon Reg[place] [address] [place] [address] 08/08/2024 9:30 AM EST Office Visit Hematology/Oncology [facility] Shereen [place] [address] [place] [phone] Mayte Tatum, [place] [address] [place] [address] 08/08/2024 10:00 AM EST Hem/Onc Treatment Hematology/Oncology Treatment, [place] [address] [place] [phone] Shereen, Chair 2 Hem Onc Scenery [address] [place] [address] 09/06/2024 8:45 AM EST Office Visit Ophthalmology, [facility] [address] [place] [address] Anthony Grey, DO [address] [place] [address] 03/10/2025 10:00 AM EDT Office Visit Sleep Disorders Ctr [facility] [address] [place] [phone] Margie Gutierrez, DO [address] [place] [address] Health Maintenance Due Date Last Done Comments [...] this encounter Medical Devices Implanted Type Area Senior Center Manager Device Identifier Shelf Expiration Date Model / Serial / Lot Port Implant W8f Poly Cath - [id number] Implanted:Qty : 1 on 04/20/2024 by Nathan Hardwick MD at [facility] Right: Chest CR BARD : PERIPHERAL VASCULAR [id number] 06/25/2025 [id number] / / [id number] documented as of this encounter Care Teams Playroom Attendant Relationship Specialty Start Date End Date Richard Marshall DO [address] [place], [place] [phone] PCP - General Family Medicine 08/26/22 documented as of this encounter
--- OUTSIDE RECORDS SUMMARY | 2024-08-11 03:27 | External Medical Summary | Summary of Care ---
Author Name Unknown Organization [facility] Address [address] [facility] [address] Phone [phone] Care Team Providers Care Rehabilitation Consultant Name Role Phone Richard Marshall DO Primary Care Provider [phone] Reason for Visit * Reason Onset Date Comments Appointment 07/21/2024 Encounter Details Date Type Department Care Team (Late st Contact Info) Description 07/21/2024 Telephone Hematology/Oncology Treatment, [place] [address] [place] [address] Nicole Vinson MD Appointment Allergies Active Allergy Reactions Criticality Noted [...] Respimat 2.5-2.5 MCG/ACT Inhalation Aerosol Solution (Tiotropium [place]-Olodaterol )Indications:COPD, severity to be determined (HCC) Inhale [...] 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 * Telephone Encounter - Whit Martinez RN - 07/21/2024 2:32 PM EST Called patient. She states that she is feeling wiped out, but otherwise doing ok. Reviewed upcoming appts- appts 08/08 to stay as scheduled. She states that she has family that sees Dr Schaefer, and Dr Schaefer saw her on Thursday when she came into the office with chest pain. She would like to transition to him. Ok with moving future treatmentto Thursday since Dr Schaefer is not here on Mondays. Freda: can you please schedule patient for tentative future appts? She does not need to be called Thursday08/30/24 - labs "CBC, CMP, urine" - New return appt with Dr Schaefer - 5 hour appt "C6D1 carbo/ taxol/ ?mvasi- day 2 fulphila" documented in this encounter Plan of Treatment Upcoming Encounters Date Type Department Care Team (Late st Contact Info) Description 07/25/2024 1:00 PM EST Laboratory Laboratory, [facility] 132 [facility] [place] [phone] [facility] 132 [facility] [place] [address] 07/25/2024 2:00 PM EST Cardiac Studies Cardiac Studies, [facility] [address] [place] [address] 07/26/2024 2:30 PM EST Hem[facility] [address] [place], [place] [phone] Shereen, Chair 7 Hem Onc Scenery [address] [place] [address] 08/08/2024 9:00 AM EST Laboratory Laboratory [facility] [address] [place] [phone] Shereen, Lab Scenery [address] [facility] [place] [address] 08/08/2024 9:30 AM EST Office Visit Hematology/Oncology [facility] [address] [place], [place] [phone] Mayte Tatum CRNP 400 [facility] [address] 08/08/2024 10:00 AM EST Hem/Onc Treatment Hematology/Oncology [facility] 200 [facility], [place] [phone] Shereen, Chair 2 Hem Onc Scenery [address] [place] [address] 08/30/2024 9:00 AM EST Laboratory Laboratory [facility] [place] [address] [place], [place] [phone] Shereen, Lab Scenery [address] [place], [place] [address] 08/30/2024 10:00 AM EST Office Visit Hematology/Oncology [facility] [address] [place] [phone] Yoav Schaefer MD [address] [place], [place] [address] 08/30/2024 11:00 AM EST Hem/Onc Treatment Hematology/Oncology Treatment, [place] [address] [place] [phone] Shereen, Chair 1 Hem Onc Scenery [address] [place] [address] 09/06/2024 8:45 AM EST Office Visit Ophthalmology, [facility] [address] [place] [address] Anthony Grey, DO [address] [place] [address] 03/10/2025 10:00 AM EDT Office Visit Sleep Disorders Ctr [facility] [address] [place] [phone] Margie Gutierrez, DO [address] [place] [address] Health Maintenance Due Date Last Done Comments [...] this encounter Medical Devices Implanted Type Area Build Automation Engineer Device Identifier Shelf Expiration Date Model / Serial / Lot Port Implant W8f Poly Cath - [id number] Implanted:Qty : 1 on 04/20/2024 by Nathan Hardwick MD at [facility] Right: Chest CR BARD : PERIPHERAL VASCULAR [id number] 06/25/2025 [id number] / / [id number] documented as of this encounter Care Teams Rehabilitation Consultant Relationship Specialty Start Date End Date Richard Marshall DO [address] [place] [address] PCP - General Family Medicine 08/26/22 documented as of this encounter
--- OUTSIDE RECORDS SUMMARY | 2024-08-11 03:28 | External Medical Summary | Summary of Care ---
Author Name Unknown Organization [facility] Address [address] [facility] [place] [address] Phone [phone] Care Team Providers Care Lard Tub Washer Name Role Phone Richard Marshall DO Primary Care Provider [phone] Encounter Details Date Type Department Care Team (Late st Contact Info) Description 07/22/2024 Orders Only Hematology/Oncology [facility] Shereen [place] [address] [facility] [address] Mayte Tatum CRNP 400 [facility] [place] [address] Allergies Active Allergy Reactions [...] Respimat 2.5-2.5 MCG/ACT Inhalation Aerosol Solution (Tiotropium [place]-Olodaterol )Indications:COPD, severity to be determined (HCC) Inhale [...] 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 on file Not on f ile documented as of this encounter Plan of Treatment Upcoming Encounters Date Type Department Care Team (Late st Contact Info) Description 07/25/2024 2:00 PM EST Cardiac Studies Cardiac Studies, [facility] 132 [facility] [place] [address] 08/08/2024 9:00 AM EST Laboratory Laboratory [facility] [place] 200 [place] [phone] Shereen, Lab [facility] 200 [facility] [place] [facility] [place] [address] 08/08/2024 9:30 AM EST Office Visit Hematology/Oncology [facility] [place] 200 [place] [address] Mayte Tatum CRNP [address] [place] [address] [place] [address] 08/08/2024 10:00 AM EST Hem/Onc Treatment Hematology/Oncology Treatment, [place] [address] [place] [phone] Shereen, Chair 2 Hem Onc [address] [place] [address] 09/06/2024 8:45 AM EST Office Visit Ophthalmology, [facility] 132 [facility] [place] [address] Anthony Grey, DO [address] [place] [address] 03/10/2025 10:00 AM EDT Office Visit Sleep Disorders Ctr Latisha Luther, [place] [address] [place] [phone] Margie Gutierrez, DO [address] [place] [address] Health Maintenance Due Date Last Done Comments [...] this encounter Medical Devices Implanted Type Area Measurement Coordinator Device Identifier Shelf Expiration Date Model / Serial / Lot Port Implant W8f Poly Cath - [id number] Implanted:Qty : 1 on 04/20/2024 by Nathan Hardwick MD at [facility] Right: Chest CR BARD : PERIPHERAL VASCULAR [id number] 06/25/2025 [id number] / / [id number] documented as of this encounter Care Teams Lard Tub Washer Relationship Specialty Start Date End Date Richard Marshall DO [address] [place] [address] PCP - General Family Medicine 08/26/22 documented as of this encounter
--- OUTSIDE RECORDS SUMMARY | 2024-08-11 03:28 | External Medical Summary | Summary of Care ---
Author Name Unknown Organization [facility] Address [address] [facility] [place] [address] Phone [phone] Care Team Providers Care Brand Planner Name Role Phone Richard Marshall DO Primary Care Provider [phone] Reason for Visit * Reason Onset Date Comments Test Results Lab 07/22/2024 Encounter Details Date Type Department Care Team (Late st Contact Info) Description 07/22/2024 Telephone Hematology/Oncology [facility] [place] 200 [facility] [address] Rush Tatum CRNP 400 [place] [address] Test Results Lab Allergies Active [...] Respimat 2.5-2.5 MCG/ACT Inhalation Aerosol Solution (Tiotropium [place]-Olodaterol )Indications:COPD, severity to be determined (HCC) Inhale [...] 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 Not on file [...] 2:00 PM EST Cardiac Studies Card[facility] Studies, [facility] [place] [address] 08/08/2024 9:00 AM EST Laboratory Laboratory [facility] [place] [address] [place] [address] Shereen, Lab Scenery [address] [place] [address] 08/08/2024 9:30 AM EST Office Visit Hematology/Oncology [facility] [place] [address] [place] [phone] Rush Tatum, SENIA [address] [place], [place] [address] [address] 08/08/2024 10:00 AM EST Hem/Onc Treatment Hematology/Oncology Treatment, [place] [address] [place] [address] Shereen, Chair 2 Hem Onc Scenery 200 [facility] [place] [address] 09/06/2024 8:45 AM EST Office Visit Ophthalmology, [facility] 132 [facility] [place] [address] Anthony Grey, DO 132 [facility] [place] [address] 03/10/2025 10:00 AM EDT Office Visit Sleep Disorders Ctr [facility] 132 [facility] [place] [phone] Margie Gutierrez, DO [address] [place] [address] Health Maintenance Due Date Last Done Comments [...] this encounter Medical Devices Implanted Type Area Instructor Of Education Device Identifier Shelf Expiration Date Model / Serial / Lot Port Implant W8f Poly Cath - [id number] Implanted:Qty : 1 on 04/20/2024 by Nathan Hardwick MD at OR [facility] Right: Chest CR BARD : PERIPHERAL VASCULAR [id number] 06/25/2025 [id number] / / [id number] documented as of this encounter Visit Diagnoses Diagnosis Hypokalemia- Primary Hypopotassemia documented in this encounter Care Teams Brand Planner Relationship Specialty Start Date End Date Richadr Marshall DO [address] [place], [place] [phone] PCP - General Family Medicine 08/26/22 documented as of this encounter
--- OUTSIDE RECORDS SUMMARY | 2024-08-11 03:28 | External Medical Summary | Summary of Care ---
Author Name Unknown Organization [facility] Address [address] [facility] [place] [address] Phone [phone] Care Team Providers Care Tax Advisor Name Role Phone Richard Marshall DO Primary Care Provider [phone] Encounter Details Date Type Department Care Team (Late st Contact Info) Description 07/22/2024 Orders Only Hematology/Oncology [place] [facility] 200 [facility] [place] [phone] Yoav Schaefer MD 200 [facility] [place] [address] 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)*; Port or reservoir infection, initial encounter Allergies Active Allergy Reactions Criticality Noted Date [...] Respimat 2.5-2.5 MCG/ACT Inhalation Aerosol Solution (Tiotropium [place]-Olodaterol )Indications:COPD, severity to be determined ([facility]) Inhale 2 Puffs by mouth daily. 12 [...] needed for Pain, Moderate. 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 On the following day when she came per the prophylactic Pegfilgrastim, some low-grade fever but did not have any other symptoms like coughing, urinary symptoms, skin changes, no port problem at that time. She came to the clinic for the IV hydration on 07/22/2024, I saw her briefly in the clinic, port site is slightly erythematous, she says that it is somewhat tender lately, has intermittent low-grade fever, no chills, no nausea no vomiting, no urinary symptoms. She will receive IV hydration Will check CBCD, comprehensive metabolic panel today. I would like to start Keflex antibiotic and see how she does. She says that she had a Keflex antibiotic for the cellulitis involving the back in May 2024. Will re-evaluate early next week. PET-CT scan done on 07/12/2024, it suggest there is a twist or spiral of the MediPort catheter within the proximal superior vena cava. Will check with intervention radiologist. Hardwick and see what he suggests. documented in this encounter Plan of Treatment Upcoming Encounters Date Type Department Care Team (Late st Contact Info) Description 07/25/2024 2:00 PM EST Cardiac Studies Cardiac Studies, [facility] 132 [facility] [place] [address] 08/08/2024 9:00 AM EST Laboratory Laboratory [facility] [address] [place] [phone] Shereen, Lab Scenery [address] [facility] [place] [address] 08/08/2024 9:30 AM EST Office Visit Hematology/Oncology [facility] [place] [address] [place] [phone] Mayte Tatum CRNP [address] [place], [place] [address] [address] 08/08/2024 10:00 AM EST Hem/Onc Treatment Hematology/Oncology Treatment, [place] [address] [place] [phone] Shereen, Chair 2 Hem Onc [facility] 200 [facility] [place] [address] 09/06/2024 8:45 AM EST Office Visit Ophthalmology, [facility] 132 [facility] [place] [address] Anthony Grey, DO 132 [facility] [place] [address] 03/10/2025 10:00 AM EDT Office Visit Sleep Disorders Ctr [facility] 132 [facility] [place] [phone] Margie Gutierrez, DO [address] [place] [address] Health Maintenance Due Date Last Done Comments [...] Lipid Panel 10/09/2026 10/09/2021, 07/09/2021 Diabetes Screening 07/18/2027 07/18/2024, 1 08/28/2023, 06/06/2024, Additional history exists Alpha-1 Antitrypsin Completed 10/09/2021 [...] this encounter Medical Devices Implanted Type Area Cartoonist Special Effects Device Identifier Shelf Expiration Date Model / Serial / Lot Port Implant W8f Poly Cath - [id number] Implanted:Qty : 1 on 04/20/2024 by Nathan Hardwick MD at OR [facility] Right: Chest CR BARD : PERIPHERAL VASCULAR [id number] 06/25/2025 [id number] / / [id number] documented as of this encounter Visit Diagnoses Diagnosis 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)- Primary Port or reservoir infection, initial encounter documented in this encounter Care Teams Tax Advisor Relationship Specialty Start Date End Date Richard Marshall DO 16 [place] [address] PCP - General Family Medicine 08/26/22 documented as of this encounter
--- OUTSIDE RECORDS SUMMARY | 2024-08-11 03:28 | External Medical Summary | Summary of Care ---
Author Name Unknown Organization [facility] Address [address] [facility] [place] [address] Phone [phone] Care Team Providers Care Pipe Maker Name Role Phone Richard Marshall DO Primary Care Provider [phone] Reason for Visit * Reason Onset Date Comments Test Results Lab 07/22/2024 Encounter Details Date Type Department Care Team (Late st Contact Info) Description 07/22/2024 Telephone Hematology/Oncology [facility] [place] 200 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 Not on file Not [...] 2:00 PM EST Cardiac Studies Cardiac Studies, [facility] [place] [address] 08/08/2024 9:00 AM EST Laboratory Laboratory [facility] [place] [address] [place] [phone] Shereen, Lab Scenery [address] [place] [address] 08/08/2024 9:30 AM EST Office Visit Hematology/Oncology [facility] [place] [address] [place] [phone] Rush Tatum, SENIA [address] [place], [place] [address] [address] 08/08/2024 10:00 AM EST Hem/Onc Treatment Hematology/Oncology Treatment, [place] [address] [place] [phone] Shereen, Chair 2 Hem Onc Scenery 200 [facility] [place] [address] 09/06/2024 8:45 AM EST Office Visit Ophthalmology, [facility] 132 [facility] [place] [address] Anthony Grey, DO 132 [facility] [place] [address] 03/10/2025 10:00 AM EDT Office Visit [facility] Disorders Ctr [facility] 132 [facility] [place] [phone] Margie Gutierrez, DO [address] [place] [address] Health Maintenance Due Date Last Done Comments [...] this encounter Medical Devices Implanted Type Area Physical Anthropologist Device Identifier Shelf Expiration Date Model / Serial / Lot Port Implant W8f Poly Cath - [id number] Implanted:Qty : 1 on 04/20/2024 by Nathan Hardwick MD at OR [facility] Right: Chest CR BARD : PERIPHERAL VASCULAR [id number] 06/25/2025 [id number] / / [id number] documented as of this encounter Visit Diagnoses Diagnosis Hypokalemia- Primary Hypopotassemia documented in this encounter Care Teams Pipe Maker Relationship Specialty Start Date End Date Richard Marshall DO 16 [place], [place] [phone] PCP - General Family Medicine 08/26/22 documented as of this encounter
--- OUTSIDE RECORDS SUMMARY | 2024-08-11 03:28 | External Medical Summary | Summary of Care ---
Author Name Unknown Organization [facility] Address [address] [facility] [place] [address] Phone [phone] Care Team Providers Care Marine Transport Professionals Name Role Phone Richard Marshall DO Primary Care Provider [phone] Reason for Visit * Reason Onset Date Comments Test Results Lab 07/22/2024 Encounter Details Date Type Department Care Team (Late st Contact Info) Description 07/22/2024 Telephone Hematology/Oncology [facility] [place] 200 [facility] [address] Rush Tatum CRNP 400 [place] [address] Test Results Lab Allergies Active [...] Respimat 2.5-2.5 MCG/ACT Inhalation Aerosol Solution (Tiotropium [place]-Olodaterol )Indications:COPD, severity to be determined (HCC) Inhale [...] 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 on 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 Not on f ile documented as of this encounter Miscellaneous Notes * Telephone Encounter - David Burton RN - 07/22/2024 3:29 PM EST Rush- having patient complete labs on Thursday (she was unable to schedule for hydration/?KCL the same day) Please place alteration "Give 1L NSS on 07/26 and PRN KCL 20mEq for K < 3.5" * Addendum Note - Rush Tatum CRNP [...] Description 07/25/2024 1:00 PM EST Laboratory Laboratory, [facility] 132 [facility] [phone] [facility] [address] [place] [address] 07/25/2024 2:00 PM EST Cardiac Studies Cardiac Studies, [facility] 132 [facility] [place] [address] 07/26/2024 2:30 PM EST Hem/Onc Treatment Hematology/Oncology Treatment[address], [place] [phone] Shereen, Chair 7 Hem Onc [facility] 200 [facility] [place] [address] 08/08/2024 9:00 AM EST Laboratory Laboratory [facility] 200 [facility] [place] [phone] [place], Lab [facility] 200 [facility] [place] [address] 08/08/2024 9:30 AM EST Office Visit Hematology/Oncology [facility] 200 [facility] [place] [phone] Rush Tatum CRNP 400 [facility] [place] [address] 08/08/2024 10:00 AM EST Hem/Onc Treatment Hematology/Oncology Treatment, [place] 200 [facility] [phone] Shereen, Chair 2 Hem Onc Scenery [address] [place] [address] 09/06/2024 8:45 AM EST Office Visit Ophthalmology, [facility] [address] [place] [address] Anthony Grey, DO [address] [place] [address] 03/10/2025 10:00 AM EDT Office Visit Sleep Disorders Ctr [facility] [address] [place] [phone] Margie Gutierrez, DO [address] [place] [address] Health Maintenance Due Date Last Done Comments [...] this encounter Medical Devices Implanted Type Area Gis Software Developer Device Identifier Shelf Expiration Date Model / Serial / Lot Port Implant W8f Poly Cath - [id number] Implanted:Qty : 1 on 04/20/2024 by Nathan Hardwick MD at OR [facility] Right: Chest CR BARD : PERIPHERAL VASCULAR [id number] 06/25/2025 [id number] / / [id number] documented as of this encounter Visit Diagnoses Diagnosis Hypokalemia- Primary Hypopotassemia documented in this encounter Care Teams Marine Transport Professionals Relationship Specialty Start Date End Date Richard Marshall DO 16 [place] [address] PCP - General Family Medicine 08/26/22 documented as of this encounter
--- OUTSIDE RECORDS SUMMARY | 2024-08-11 03:29 | External Medical Summary ---
Author Name Unknown Address Unknown Organization K09[facility] [place] [address] Laboratory Report Ordering Provider Test Date Status BERNICE PARKER 07/22/2024 12:56:28 Final Observation Date Value Abnormality Reference (Units ) Status WBC, Total 07/22/2024 12:56:28 30.87 Above high normal 4 .00-10.80 (K/uL) Final RBC 07/22/2024 12:56:28 4.44 3.85-5.15 (M/uL) Final Hemoglobin 07/22/2024 12:56:28 13.7 12.0-15.3 (g/dL) Final HCT 07/22/2024 12:56:28 41.1 36.0-45.2 (%) Final MCV 07/22/2024 12:56:28 92.6 81.5-97.5 (fL) Final MCH 07/22/2024 12:56:28 30.9 27.0-34.0 (pg) Final MCHC 07/22/2024 12:56:28 33.3 32.0-36.0 (g/dL) Final RDW 07/22/2024 12:56:28 17.8 11.5-15.5 (%) Final Platelets 07/22/2024 12:56:28 234 140-400 (K /uL) Final MPV 07/22/2024 12:56:28 10.5 6.6-11.1 ( fL) Final Performing Location [facility] [place] [address]
--- OUTSIDE RECORDS SUMMARY | 2024-08-11 03:29 | External Medical Summary | Summary of Care ---
Author Name Unknown Organization [facility] Address [address] [facility] [place] [address] Phone [phone] Care Team Providers Care Yardage Tufting Machine Operator Name Role Phone Richard Marshall DO Primary Care Provider [phone] Encounter Details Date Type Department Care Team (Late st Contact Info) Description 07/18/2024 Telephone Hematology/Oncology [facility] [place] [address] [facility] [address] Nicole Vinson MD Allergies Active [...] Respimat 2.5-2.5 MCG/ACT Inhalation Aerosol Solution (Tiotropium [place]-Olodaterol )Indications:COPD, severity to be determined (HCC) Inhale [...] 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 * Telephone Encounter - Mayte Quiroga RN - 07/22/2024 11:51 AM EST Acceptable to offer close in new [facility] or for sooner evaluation per request. [...] to patient resuming bevacizumab due to prior AR noted on 07/12/24 PET. Can this appt please be moved up? * Telephone Encounter - David Burton RN - 07/18/2024 10:[address] Vinson Alt today "HOLD AVASTIN UNTIL CLEARED BY CARDIOLOGY " Cardiology referral and Echo referral placed today. documented in this encounter Plan of Treatment Upcoming Encounters Date Type Department Care Team (Late st Contact Info) Description 07/22/2024 1:00 PM EST Hem/Onc Treatment Hematology/Oncology [address]DAM[address] [phone] Shereen, Chair 8 Hem Onc [facility] [address] [place] [address] [place] [address] 07/25/2024 2:00 PM EST Cardiac Studies Cardiac Studies, [facility] 132 PsychiatricD[facility] [address] 08/08/2024 9:00 AM EST Laboratory Laboratory [facility] [address] [place] [phone] Shereen, Lab [facility] [address] [place] [address] [place] [address] 08/08/2024 9:30 AM EST Office Visit Hematology/Oncology [facility] [address] [place] [phone] Mayte Tatum CRNP 400 [facility] [place] [address] 08/08/2024 10:00 AM EST Hem/Onc Treatment Hematology/Oncology Treatment, [address] [phone] Shereen, Chair 2 Hem Onc [facility] 200 [facility] [place] [address] 09/06/2024 8:45 AM EST Office Visit Ophthalmology, [facility] 132 [facility] [place] [address] Anthony Grey, DO 132 [facility] [place] [address] 03/10/2025 10:00 AM EDT Office Visit Sleep Disorders Ctr [facility] [address] [place] [phone] Margie Gutierrez, [address] [place] [address] Health Maintenance Due Date Last Done Comments [...] this encounter Medical Devices Implanted Type Area Motor Overhauler Device Identifier Shelf Expiration Date Model / Serial / Lot Port Implant W8f Poly Cath - [id number] Implanted:Qty : 1 on 04/20/2024 by Nathan Hardwick MD at [facility] Right: Chest CR BARD : PERIPHERAL VASCULAR [id number] 06/25/2025 [id number] / / [id number] documented as of this encounter Care Teams Yardage Tufting Machine Operator Relationship Specialty Start Date End Date Richard Marshall DO 16 [place] [address] PCP - General Family Medicine 08/26/22 documented as of this encounter
--- OUTSIDE RECORDS SUMMARY | 2024-08-11 03:29 | External Medical Summary | Summary of Care ---
Author Name Unknown Organization [facility] Address [address] [facility] [address] Phone [phone] Care Team Providers Care Halftone Operator Name Role Phone Richard Marshall DO Primary Care Provider [phone] Reason for Visit * Reason Onset Date Comments Appointment 07/21/2024 Encounter Details Date Type Department Care Team (Late st Contact Info) Description 07/21/2024 Telephone Hematology/Oncology Treatment, [place] [address] [place] [address] Nicole Vinson MD Appointment Allergies [...] Respimat 2.5-2.5 MCG/ACT Inhalation Aerosol Solution (Tiotropium [place]-Olodaterol )Indications:COPD, severity to be determined (HCC) Inhale [...] 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 Not on file [...] 2:00 PM EST Cardiac Studies Cardiac Studies, [facility] 132 [facility] [place] [address] 08/08/2024 9:00 AM EST Laboratory Laboratory Karla Regan [place] [address] [place] [address] [phone] [place] [address] 08/08/2024 9:30 AM EST Office Visit Hematology/Oncology [facility] [place] [address] [place] [phone] Mayte Tatum CRNP 400 [facility] [place] [address] 08/08/2024 10:00 AM EST Hem/Onc Treatment Hematology/Oncology Treatment, [place] [address] [place] [phone] Shereen, Chair 2 Hem Onc Scenery [address] [place] [address] 09/06/2024 8:45 AM EST Office Visit Ophthalmology, [facility] [address] [place] [address] Anthony Grey, DO [address] [place] [address] 09/19/2024 9:00 AM EST Office Visit Cardiology, [place] 400 [facility] [place] [address] Abner Weir, DO 400 [facility] [address] 03/10/2025 10:00 AM EDT Office Visit Sleep Disorders [facility] [address] [place] [phone] Margie Gutierrez, DO [address] [place] [address] Health Maintenance Due Date Last Done Comments [...] this encounter Medical Devices Implanted Type Area Operator Control Room Device Identifier Shelf Expiration Date Model / Serial / Lot Port Implant W8f Poly Cath - [id number] Implanted:Qty : 1 on 04/20/2024 by Nathan Hardwick MD at [facility] Right: Chest CR BARD : PERIPHERAL VASCULAR [id number] 06/25/2025 [id number] / / [id number] documented as of this encounter Care Teams Halftone Operator Relationship Specialty Start Date End Date Richard Marshall DO 16 [place], [place] [phone] PCP - General Family Medicine 08/26/22 documented as of this encounter
--- OUTSIDE RECORDS SUMMARY | 2024-08-11 03:29 | External Medical Summary | Summary of Care ---
Author Name Unknown Organization [facility] Address [address] [facility] [place] [address] Phone [phone] Care Team Providers Care Automated Manufacturing Instructor Name Role Phone Richard Mrashall DO Primary Care Provider [phone] Reason for Visit * Reason Onset Date Comments Advice 07/22/2024 Encounter Details Date Type Department Care Team (Late st Contact Info) Description 07/22/2024 Telephone Hematology/Oncology Karla Regan [place] [address] [place] [address] Luis Antonio Patton MD [address] [place] [address] Advice Allergies Active Allergy Reactions Criticality Noted Date [...] Respimat 2.5-2.5 MCG/ACT Inhalation Aerosol Solution (Tiotropium [place]-Olodaterol )Indications:COPD, severity to be determined (HCC) Inhale [...] 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 He was speaking with David. He wants to say that Lanny is on her way and should be there in about 45 min to an hour Please advise and contact thank you * Telephone Encounter - David Burton RN - 07/22/2024 11:32 AM EST Spoke with patients on the phone. States patient has been having dizzy spells since yesterday and has had no energy for the past few days. He states "She doesn't feel like getting out of bed or really doing anything." He states she is only drinking around 40oz of fluid. He states she is only eating a small piece of toast in the morning and only one smaller meal during the day. I advised we could have her come in for some hydration today around 1PM, no later than 1:30. Also advised that if she is having the dizzy spells with shortness of breath or chest pain she should be evaluated in the ER. He states she isn't having any chest pain or shortness of breath, just extreme fatigue and dizzy spells. He is going to call Lanny to see if she would like to come today. I advised that if she doesn't wish to come in today then I would highly recommend pushing fluids and oral intake, using nausea medications as needed with this to help, and to eat smaller more frequent meals throughout the day. Encouraged electrolyte drinks for electrolyte replacement. He verbalized understanding. documented in this encounter Plan of Treatment Upcoming Encounters Date Type Department Care Team (Late st Contact Info) Description 07/25/2024 2:00 PM EST Cardiac Studies Cardiac Studies, [facility] 132 [facility] [place] [address] 08/08/2024 9:00 AM EST Laboratory Laboratory [facility] 200 [facility] [place] [phone] [place], Lab [facility] 200 [facility] [place] [address] 08/08/2024 9:30 AM EST Office Visit Hematology/Oncology [facility] 200 [facility] [place] [phone] Mayte Tatum CRNP [address] [place] [address] 08/08/2024 10:00 AM EST Hem/Onc Treatment Hematology/Oncology Treatment, [place] 200 [facility] [address] [place], [place] [phone] Shereen, Chair 2 Hem Onc [address] [place] [address] 09/06/2024 8:45 AM EST Office Visit Ophthalmology, [facility] 132 [facility] [place] [address] Anthony Grey, DO [facility] [place] [address] 09/19/2024 9:00 AM EST Office Visit CardiologyElva 400 [place] [address] Abner Weir DO 400 [place] [address] 03/10/2025 10:00 AM EDT Office Visit Sleep Disorders Ctr [facility] [address] [place] [phone] Margie Gutierrez, [address] [place] [address] Health Maintenance Due Date Last Done Comments Depression Monitoring 1976 HIV Screening 01/11/1979 DTap/Tdap Vaccines (1 - Tdap) 01/11/1983 Pneumococcal Vaccine: 50+ Years (1 of 2 - PCV) 01/11/1983 Zoster Vaccines (1 of 2) 01/11/1983 HPV/Co-Test 01/11/1994 Cologuard 01/11/2009 Colonoscopy 01/11/2009 Colorectal Cancer Screening 01/11/2009 Fecal Occult Blood Test 01/11/2009 Sigmoidoscopy 01/11/2009 COVID-19 Vaccine (2 - Ejffrey risk series) 01/16/2021 12/19/2020 Mammogram 09/22/2023 09/22/2022, [...] this encounter Medical Devices Implanted Type Area Giver Device Identifier Shelf Expiration Date Model / Serial / Lot Port Implant W8f Poly Cath - [id number] Implanted:Qty : 1 on 04/20/2024 by Nathan Hardwick MD at [facility] Right: Chest CR BARD : PERIPHERAL VASCULAR [id number] 06/25/2025 [id number] / / [id number] documented as of this encounter Care Teams Automated Manufacturing Instructor Relationship Specialty Start Date End Date Richard Marshall DO [address] [place] [address] PCP - General Family Medicine 08/26/22 documented as of this encounter
--- OUTSIDE RECORDS SUMMARY | 2024-08-11 03:29 | External Medical Summary | Summary of Care ---
Author Name Unknown Organization [facility] Address [address] [facility] [place] [address] Phone [phone] Care Team Providers Care Synthetic Filament Spinner Name Role Phone Richard Marshall DO Primary Care Provider [phone] Encounter Details Date Type Department Care Team (Late st Contact Info) Description 07/22/2024 Orders Only Hematology/Oncology [facility] Shereen [place] [address] [facility] [address] Mayte Tatum CRNP 400 [facility] [place] [address] Allergies Active [...] Respimat 2.5-2.5 MCG/ACT Inhalation Aerosol Solution (Tiotropium [place]-Olodaterol )Indications:COPD, severity to be determined (HCC) Inhale [...] 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 [place] 132 [facility] [place] [address] 08/08/2024 9:00 AM EST Laboratory Laboratory [facility] [place] 200 [facility] [place] [phone] Shereen, Lab [facility] 200 [facility] G[place] [address] 08/08/2024 9:30 AM EST Office Visit Hematology/Oncology [facility] Shereen [place] 200 [facility] [place] [phone] Mayte Tatum CRNP 400 [facility] [place] [address] 08/08/2024 10:00 AM EST Hem/Onc Treatment Hematology/Oncology Treatment, [place] 200 [facility] Krista [place] [phone] Shereen, Chair 2 Hem Onc Scenery 200 [facility] [place] [address] 09/06/2024 8:45 AM EST Office Visit Ophthalmology, [facility] [address] [place] [address] Anthony Grey, DO [address] [place] [address] 09/19/2024 9:00 AM EST Office Visit Cardiology, [place] [facility] [address] Abner Weir, DO 400 [facility] [place] [address] 03/10/2025 10:00 AM EDT Office Visit Sleep Disorders [facility] [address] [place] [phone] Margie Gutierrez, DO [address] [place] [address] Health Maintenance Due Date Last Done Comments [...] this encounter Medical Devices Implanted Type Area Jail Guard Device Identifier Shelf Expiration Date Model / Serial / Lot Port Implant W8f Poly Cath - [id number] Implanted:Qty : 1 on 04/20/2024 by Nathan Hardwick MD at [facility] Right: Chest CR BARD : PERIPHERAL VASCULAR [id number] 06/25/2025 [id number] / / [id number] documented as of this encounter Care Teams Synthetic Filament Spinner Relationship Specialty Start Date End Date Richard Marshall DO [address] [place] [address] PCP - General Family Medicine 08/26/22 documented as of this encounter
--- OUTSIDE RECORDS SUMMARY | 2024-08-11 03:29 | External Medical Summary ---
Author Name Unknown Address Unknown Organization [facility] [place] [address] Laboratory Report Ordering Provider Test Date Status BERNICE PARKER 07/22/2024 12:56:28 Final Observation Date Value Abnormality Reference (Units ) Status Nucleated erythrocytes/100 leukocytes [Ratio] in Blood by Automated count 07/22/2024 12:56:28 Final Performing Location [facility] [place] [address]
--- OUTSIDE RECORDS SUMMARY | 2024-08-11 03:29 | External Medical Summary ---
Author Name Unknown Address Unknown Organization [facility] [place] [address] Laboratory Report Ordering Provider Test Date Status BERNICE PARKER 07/22/2024 12:56:28 Final Observation Date Value Abnormality Reference (Units ) Status SYNC LEUKOCYTES IN BLOOD BY AUTOMATED COUNT 07/22/2024 12:56:28 30.87 Above high normal 4.00-10.80 (K/uL) Final Segs 07/22/2024 12:56:28 93.3 Above high normal 40.0-75.0 (%) Final Lymphs % 07/22/2024 12:56:28 5.0 Below low normal 18.0-42.0 (%) Final Monos 07/22/2024 12:56:28 1.2 1.0-11.0 (%) Final Eosinophils 07/22/2024 12:56:28 0.4 0.0-6.0 (%) Final Basos 07/22/2024 12:56:28 0.1 0.0-2.0 (%) Final Absolute Segs 07/22/2024 12:56:28 28.80 Above high normal 1.80-7.70 (K/uL) Final Lymphs, absolute 07/22/2024 12:56:28 1.54 1.00-4.80 (K/ul) Final Monos, Abs 07/22/2024 12:56:28 0.37 0.00-1.10 (K/uL) Final Eos, Abs 07/22/2024 12:56:28 0.12 0.00-0.70 (K/uL) Final Basos, Abs 07/22/2024 12:56:28 0.04 0.00-0.20 (K/uL) Final Performing Location [facility] [place] [address]
--- OUTSIDE RECORDS SUMMARY | 2024-08-11 03:29 | External Medical Summary | Summary of Care ---
Author Name Unknown Organization [facility] Address [address] [facility] [place] [address] Phone [phone] Care Team Providers Care Washery Engineer Name Role Phone Richard Marshall DO Primary Care Provider [phone] Encounter Details Date Type Department Care Team (Late st Contact Info) Description 07/21/2024 Orders Only Hematology/Oncology [facility] [place] 200 [facility] [place] [phone] Luis Antonio Patton MD [address] [place] [address] Allergies Active Allergy Reactions Criticality Noted Date Comments Iodinated Contrast Media 07/05/2021 "itchy, rash and hives" CT Scan documented as of this encounter (statuses as of 07/21/2024) Medications Vitamin D (Cholecalciferol) 50 MCG (1999 UT) Oral Capsule Take by mouth at bedtime. Active Ferrous Sulfate 325 (65 Fe) MG Oral Tablet (Feosol) Take 1 Tablet by mouth at bedtime. Active Stiolto Respimat 2.5-2.5 MCG/ACT Inhalation Aerosol Solution (Tiotropium [place]-Olodaterol )Indications:COPD, severity to be determined (HCC) Inhale [...] as of this encounter (statuses as of 07/21/2024) Active Problems Problem Noted Date Diagnosed Date [...] as of this encounter (statuses as of 07/21/2024) Resolved Problems Problem Noted Date Diagnosed Date Resolved Date COPD, group A, by GOLD 2017 classification 07/07/2022 04/07/2024 Overview: Per COPD GOLD Classification COPD, severity to be determined 07/09/2021 07/10/2022 Overview: Per COPD GOLD Classification documented as of this encounter (statuses as of 07/21/2024) Immunizations Name Administration Dates Next Due Covid-19 [...] do you feel lonely or isolated from ose around you? 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 Not on file Not on f ile documented as of this encounter Plan of Treatment Upcoming Encounters Date Type Department Care Team (Late st Contact Info) Description 07/25/2024 2:00 PM EST Cardiac Studies Cardiac Studies, [facility] 132 [facility] [place] [address] 08/08/2024 9:00 AM EST Laboratory Laboratory [facility] [address] [place] [phone] She[place], Lab [facility] 200 [facility] [place] [address] 08/08/2024 9:30 AM EST Office Visit Hematology/Oncology [facility] 200 [facility] [place] [phone] Mayte Tatum CRNP [address] [place] [address] [place] [address] 08/08/2024 10:00 AM EST Hem/Onc Treatment Hematology/Oncology Treatment, [place] [address] [place] [phone] Shereen, Chair 2 Hem Onc [facility] 200 [facility] [place] [address] 09/06/2024 8:45 AM EST Office Visit Ophthalmology, [facility] [address] [place] [address] Anthony Grey, [address] [place] [address] 09/19/2024 9:00 AM EST Office Visit Cardiology, [place] 400 [place] [address] Abner Weir DO 400 [place] [address] 03/10/2025 10:00 AM EDT Office Visit Sleep Disorders Ctr [facility] [address] [place] [phone] Margie Gutierrez, DO [address] [place] [address] Health Maintenance Due Date Last Done Comments [...] this encounter Medical Devices Implanted Type Area Mice Raiser Device Identifier Shelf Expiration Date Model / Serial / Lot Port Implant W8f Poly Cath - [id number] Implanted:Qty : 1 on 04/20/2024 by Nathan Hardwick MD at [facility] Right: Chest CR BARD : PERIPHERAL VASCULAR [id number] 06/25/2025 [id number] / / [id number] documented as of this encounter Care Teams Washery Engineer Relationship Specialty Start Date End Date Richard Marshall DO 16 [place] [address] PCP - General Family Medicine 08/26/22 documented as of this encounter
--- OUTSIDE RECORDS SUMMARY | 2024-08-11 03:29 | External Medical Summary | Summary of Care ---
Author Name Unknown Organization [facility] Address [address] [facility] [place] [address] Phone [phone] Care Team Providers Care Revenue Audit Clerk Name Role Phone Richard Marshall DO Primary Care Provider [phone] Reason for Visit * Reason Onset Date Comments Advice 07/22/2024 Encounter Details Date Type Department Care Team (Late st Contact Info) Description 07/22/2024 Telephone Hematology/Oncology Karla Regan [place] [address] [place] [phone] Luis Antonio Patton MD [address] [place] [address] Advice Allergies Active Allergy Reactions Criticality Noted [...] Respimat 2.5-2.5 MCG/ACT Inhalation Aerosol Solution (Tiotropium [place]-Olodaterol )Indications:COPD, severity to be determined (HCC) Inhale [...] 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 * Telephone Encounter - David Burton RN - 07/22/2024 12:00 PM EST Pt coming today at 1PM for hydration/labs. Scheduling aware and adding her to the schedule. Rush- please place order for 1L NSS over 2 hours today. Thank you. * Telephone Encounter - Gissell Powell OSA [...] 1:00 PM EST Hem/Onc Treatment Hematology/Oncology Treatment, [place] [address] [facility] [place] [phone] Shereen, Chair 8 Hem Onc [place] 200 [facility] [place] [address] 07/25/2024 2:00 PM EST Cardiac Studies Cardiac Studies, [facility] 132 [facility] [place] [address] 08/08/2024 9:00 AM EST Laboratory Laboratory [facility] Shereen [place] 200 [place] [phone] Shereen Lab [facility] 200 Mario Alberto [facility] [place] [address] 08/08/2024 9:30 AM EST Office Visit Hematology/Oncology [facility] [address] [place], [place] [phone] Rush Gilmore CRNP 400 [facility] [place] [address] 08/08/2024 10:00 AM EST Hem/Onc Treatment Hematology/Oncology Treatment, [place] [address] [place] [phone] Shereen, Chair 2 Hem Onc [facility] 200 [facility] [place] [address] 09/06/2024 8:45 AM EST Office Visit Ophthalmology, Health system [address] [place] [address] Anthony Grey, DO [address] [place] [address] 03/10/2025 10:00 AM EDT Office Visit Sleep Disorders Ctr [facility] [address] [place] [phone] Margie Gutierrez, DO [address] [place] [address] Health Maintenance Due Date Last Done Comments [...] this encounter Medical Devices Implanted Type Area Reading Interventionist Device Identifier Shelf Expiration Date Model / Serial / Lot Port Implant W8f Poly Cath - [id number] Implanted:Qty : 1 on 04/20/2024 by Nathan Hardwick MD at [facility] Right: Chest CR BARD : PERIPHERAL VASCULAR [id number] 06/25/2025 [id number] / / [id number] documented as of this encounter Visit Diagnoses Diagnosis Dehydration- Primary documented in this encounter Care Teams Revenue Audit Clerk Relationship Specialty Start Date End Date Richard Marshall DO 16 [place] [address] PCP - General Family Medicine 08/26/22 documented as of this encounter
--- OUTSIDE RECORDS SUMMARY | 2024-08-11 03:29 | External Medical Summary ---
Author Name Unknown Address Unknown Organization [facility] Karla Howard [place] [address] Laboratory Report Ordering Provider Test Date Status BERNICE PARKER 07/22/2024 12:56:28 Final Observation Date Value Abnormality Reference (Units ) Status BUN 07/22/2024 12:56:28 20 6-20 (mg/dL) Final Creatinine 07/22/2024 12:56:28 0.6 0.5-1.0 (mg/dL) Final Glomerular filtration rate/1.73 sq M.predicted [Volume Rate/Area] in Serum, Plasma or Blood by Creatinine-based formula (CKD-EPI) 07/22/2024 12:56:28 >90 >=60 (mL/min) Final eGFR is calculated based on the CKD-EPI 2020 equation. Sodium 07/22/2024 12:56:28 136 135-146 (m mol/L) Final Potassium 07/22/2024 12:56:28 3.2 Below low normal 3.5 -5.1 (mmol/L) Final Cl 07/22/2024 12:56:28 97 Below low normal 98- 107 (mmol/L) Final CO2 07/22/2024 12:56:28 19 Below low normal 22- 32 (mmol/L) Final Anion gap 07/22/2024 12:56:28 20 Above high normal 7- 15 (mmol/L) Final Glucose 07/22/2024 12:56:28 159 Above high normal 70 -120 (mg/dL) Final Albumin 07/22/2024 12:56:28 4.1 3.8-5.0 (g /dL) Final AST (Aspartate aminotransferase) 07/22/2024 12:56:28 23 10-35 (U/L) Fin al Alk Phos 07/22/2024 12:56:28 147 Above high normal 35 -130 (U/L) Final Bilirubin, Total 07/22/2024 12:56:28 0.9 <=1 .2 (mg/dL) Final Calcium 07/22/2024 12:56:28 9.1 8.4-10.2 ( mg/dL) Final Protein 07/22/2024 12:56:28 7.2 6.0-8.3 (g /dL) Final ALT (Alanine aminotransferase) 07/22/2024 12:56:28 27 10-35 (U/L) Brian morrow Performing Location [facility] [address] [place] [address]
--- OUTSIDE RECORDS SUMMARY | 2024-08-11 03:29 | External Medical Summary | Summary of Care ---
Author Name Unknown Organization [facility] Address [address] [facility] [place] [address] Phone [phone] Care Team Providers Care Warehouse Stock Clerk Name Role Phone Richard Marshall DO Primary Care Provider [phone] Encounter Details Date Type Department Care Team (Late st Contact Info) Description 07/18/2024 Telephone [facility]ology[facility] [place] [address] [facility] [phone] Nicole Vinson MD Allergies Active Allergy [...] Respimat 2.5-2.5 MCG/ACT Inhalation Aerosol Solution (Tiotropium [place]-Olodaterol )Indications:COPD, severity to be determined (HCC) Inhale [...] 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 [...] to patient resuming bevacizumab due to prior ND noted on 07/12/24 PET. Can this appt [...] 2:00 PM EST Cardiac Studies Cardiac Studies, [facility] 132 [facility] [place] [address] 08/08/2024 9:00 AM EST Laboratory Laboratory [facility] [place] [address] [place] [phone] Shereen, Lab [place] [address] [facility] [place] [address] 08/08/2024 9:30 AM EST Office Visit Hematology/Oncology [place] [address] [place] [phone] Mayte Tatum CRNP 400 [facility] [place] [id number] 08/08/2024 10:00 AM EST Hem[facility] [address] [place], [place] [phone] Shereen, Chair 2 Hem Onc [place] [address] [place] [address] 09/06/2024 8:45 AM EST Office Visit Ophthalmology, [facility] 132 [facility] [place] [address] Anthony Grey, DO [address] [place] [address] 09/19/2024 9:00 AM EST Office Visit Cardiology, [place] [address] [place] [address] Abner Weir, DO [address] [place] [address] 03/10/2025 10:00 AM EDT Office Visit Sleep Disorders Ctr [facility] 132 [facility] [place] [phone] Margie Gutierrez, DO [address] [place] [address] Health Maintenance Due Date Last Done Comments [...] this encounter Medical Devices Implanted Type Area Vat Washer Device Identifier Shelf Expiration Date Model / Serial / Lot Port Implant W8f Poly Cath - [id number] Implanted:Qty : 1 on 04/20/2024 by Nathan Hardwick MD at [facility] Right: Chest CR BARD : PERIPHERAL VASCULAR [id number] 06/25/2025 [id number] / / [id number] documented as of this encounter Care Teams Warehouse Stock Clerk Relationship Specialty Start Date End Date Richard Marshall DO 16 [place], [place] [phone] PCP - General Family Medicine 08/26/22 documented as of this encounter
--- OUTSIDE RECORDS SUMMARY | 2024-08-11 03:29 | External Medical Summary | Summary of Care ---
Author Name Unknown Organization [facility] Address [address] [facility] [place] [address] Phone [phone] Care Team Providers Care Gettering Filament Machine Operator Name Role Phone Richard Marshall DO Primary Care Provider [phone] Reason for Visit * Reason Onset Date Comments Advice 07/22/2024 Encounter Details Date Type Department Care Team (Late st Contact Info) Description 07/22/2024 Telephone Hematology/Oncology Karla Regan [place] [address] [place] [address] Luis Antonio Patton MD [address] [place] [address] Advice Allergies Active Allergy Reactions Criticality Noted [...] Respimat 2.5-2.5 MCG/ACT Inhalation Aerosol Solution (Tiotropium [place]-Olodaterol )Indications:COPD, severity to be determined (HCC) Inhale [...] 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 Scheduling aware and adding her to the schedule. Mayte- please place order for 1L NSS over [...] 07/22/2024 1:00 PM EST Hem/Onc Treatment Hematology/Oncology [address] [phone] Shereen, Chair 8 Hem Onc [address] [place] [address] 07/25/2024 2:00 PM EST Cardiac Studies Cardiac Studies, [facility] 132 [facility] [place] [address] 08/08/2024 9:00 AM EST Laboratory Laboratory [address] [place] [phone] Shereen, Lab [address] [facility] [place] [address] 08/08/2024 9:30 AM EST Office Visit Hematology/Oncology [address] [place] [phone] Mayte Tatum CRNP 400 [facility] [place] [address] 08/08/2024 10:00 AM EST Hem/Onc Treatment Hematology/Oncology [facility] 200 [facility] [phone] Shereen, Chair 2 Hem Onc [address] [place] [address] 09/06/2024 8:45 AM EST Office Visit Ophthalmology, [facility] [address] [facility] [place] [address] Anthony Grey, DO [address] [place] [address] 09/19/2024 9:00 AM EST Office Visit Cardiology, [place] 400 [facility] [address] Abner Weir, DO 400 [facility] [place] [address] 03/10/2025 10:00 AM EDT Office Visit Sleep Disorders Ctr [facility] [place] [phone] Margie Gutierrez, DO [address] [place] [address] Health Maintenance Due Date Last Done Comments [...] this encounter Medical Devices Implanted Type Area Product Marketing Intern Device Identifier Shelf Expiration Date Model / Serial / Lot Port Implant W8f Poly Cath - [id number] Implanted:Qty : 1 on 04/20/2024 by Nathan Hardwick MD at OR [facility] Right: Chest CR BARD : PERIPHERAL VASCULAR [id number] 06/25/2025 [id number] / / [id number] documented as of this encounter Care Teams Gettering Filament Machine Operator Relationship Specialty Start Date End Date Richard Marshall DO 16 [place] [address] PCP - General Family Medicine 08/26/22 documented as of this encounter
--- OUTSIDE RECORDS SUMMARY | 2024-08-11 03:29 | External Medical Summary | Summary of Care ---
Author Name Unknown Organization [facility] Address [address] [facility] [place] [address] Phone [phone] Care Team Providers Care Laborer Dairy Farm Name Role Phone Richard Marshall DO Primary Care Provider [phone] Encounter Details Date Type Department Care Team (Late st Contact Info) Description 07/21/2024 Orders Only Hematology/Oncology [facility] [place] [facility] [place] [address] Luis Antonio Patton MD [address] [place] [address] Allergies Active Allergy Reactions Criticality Noted Date [...] Respimat 2.5-2.5 MCG/ACT Inhalation Aerosol Solution (Tiotropium [place]-Olodaterol )Indications:COPD, severity to be determined (HCC) Inhale [...] 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 Not on file Not on f ile documented as of this encounter Plan of Treatment Upcoming Encounters Date Type Department Care Team (Late st Contact Info) Description 07/25/2024 2:00 PM EST Cardiac Studies Cardiac Studies, [facility] 132 [facility] [place] [address] 08/08/2024 9:00 AM EST Laboratory Laboratory [facility] [address] [place] [phone] Shereen, Lab [facility] 200 [facility] [place] [address] 08/08/2024 9:30 AM EST Office Visit Hematology/Oncology [facility] 200 [facility] [place] [phone] Mayte Tatum CRNP [address] [place] [address] [place] [address] 08/08/2024 10:00 AM EST Hem/Onc Treatment Hematology/Oncology Treatment, [place] [address] [place] [phone] Shereen, Chair 2 Hem Onc [facility] 200 [place] [address] 09/06/2024 8:45 AM EST Office Visit Ophthalmology, [facility] [address] [place] [address] Anthony Grey, [address] [place] [address] 09/19/2024 9:00 AM EST Office Visit Cardiology, [place] 400 [employer] [place] [address] Abner Weir DO 400 [employer] [place] [address] 03/10/2025 10:00 AM EDT Office Visit Sleep Disorders Ctr [facility] [address] [place] [phone] Margie Gutierrez, DO [address] [place] [address] Health Maintenance Due Date Last Done Comments [...] this encounter Medical Devices Implanted Type Area Hotel Assistant Manager Device Identifier Shelf Expiration Date Model / Serial / Lot Port Implant W8f Poly Cath - [id number] Implanted:Qty : 1 on 04/20/2024 by Nathan Hardwick MD at [facility] Right: Chest CR BARD : PERIPHERAL VASCULAR [id number] 06/25/2025 [id number] / / [id number] documented as of this encounter Care Teams Laborer Dairy Farm Relationship Specialty Start Date End Date Richard Marshall DO 16 [place] [address] PCP - General Family Medicine 08/26/22 documented as of this encounter
--- OUTSIDE RECORDS SUMMARY | 2024-08-11 03:29 | External Medical Summary | Summary of Care ---
Author Name Unknown Organization [facility] Address [address] [facility] [place] [address] Phone [phone] Care Team Providers Care Hearing Care Professional Name Role Phone Richard Marshall DO Primary Care Provider [phone] Reason for Visit * Reason Onset Date Comments Advice 07/22/2024 Encounter Details Date Type Department Care Team (Late st Contact Info) Description 07/22/2024 Telephone Hematology/Oncology Karla Regan [place] [address] [place] [address] Luis Antonio Patton MD [address] [place] [address] Advice Allergies Active Allergy Reactions Criticality Noted [...] 2.5-2.5 MCG/ACT Inhalation Aerosol Solution (Tiotropium [place]-Olodaterol )Indications:COPD, severity to be determined (HCC) Inhale [...] 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 on file [...] 2:00 PM EST Cardiac Studies Cardiac Studies, [facility] 132 [facility] [place] [address] 08/08/2024 9:00 AM EST Laboratory Laboratory [facility] 200 [facility] [place] [phone] [place], Lab [facility] 200 [facility] [place] [address] 08/08/2024 9:30 AM EST Office Visit Hematology/Oncology [facility] 200 [facility] [place] [phone] Mayte Tatum CRNP 400 [place] [address] 08/08/2024 10:00 AM EST Hem/Onc Treatment Hematology/Oncology Treatment, [place] [address] [facility] [address] [place], [place] [phone] Shereen, Chair 2 Hem Onc [address] [place] [address] 09/06/2024 8:45 AM EST Office Visit Ophthalmology, [facility] 132 [facility] [place] [address] Anthony Grey, DO 132 [facility] [place] [address] 09/19/2024 9:00 AM EST Office Visit Cardiology[place] 400 [place] [address] Abner Weir DO 400 [place] [address] 03/10/2025 10:00 AM EDT Office Visit Sleep Disorders Ctr [facility] [address] [place] [phone] Margie Gutierrez, [address] [place] [address] Health Maintenance Due Date Last Done Comments [...] this encounter Medical Devices Implanted Type Area Vice Chair Device Identifier Shelf Expiration Date Model / Serial / Lot Port Implant W8f Poly Cath - [id number] Implanted:Qty : 1 on 04/20/2024 by Nathan Hardwick MD at [facility] Right: Chest CR BARD : PERIPHERAL VASCULAR [id number] 06/25/2025 [id number] / / [id number] documented as of this encounter Care Teams Hearing Care Professional Relationship Specialty Start Date End Date Richard Marshall DO [address] [place] [address] PCP - General Family Medicine 08/26/22 documented as of this encounter
--- OUTSIDE RECORDS SUMMARY | 2024-08-11 03:30 | External Medical Summary | Summary of Care ---
Author Name Unknown Organization [facility] Address [address] [facility] [place] [address] Phone [phone] Care Team Providers Care Sidewalk Repairer Name Role Phone Richard Marshall DO Primary Care Provider [phone] Encounter Details Date Type Department Care Team (Late st Contact Info) Description 07/21/2024 Orders Only Hematology/Oncology [facility] [place] 200 [facility] [place] [phone] Luis Antonio Patton MD [address] [place] [address] Allergies Active Allergy Reactions Criticality Noted Date [...] Respimat 2.5-2.5 MCG/ACT Inhalation Aerosol Solution (Tiotropium [place]-Olodaterol )Indications:COPD, severity to be determined (HCC) Inhale [...] 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 132 [facility] [place] [address] 08/08/2024 9:00 AM EST Laboratory Laboratory [facility] [address] [place] [phone] Shereen, Lab [facility] 200 [facility] [place] [address] 08/08/2024 9:30 AM EST Office Visit Hematology/Oncology [facility] 200 [facility] [place] [phone] Mayte Tatum CRNP [address] [place] [address] [place] [address] 08/08/2024 10:00 AM EST Hem/Onc Treatment Hematology/Oncology Treatment, [place] [address] [place] [phone] Shereen, Chair 2 Hem Onc [facility] 200 [facility] [place] [address] 09/06/2024 8:45 AM EST Office Visit Ophthalmology, [facility] [address] [place] [address] Anthony Grey, [address] [place] [address] 09/19/2024 9:00 AM EST Office Visit Cardiology, [place] [address] [place] [address] Abner Weir, [address] [place] [address] 03/10/2025 10:00 AM EDT Office Visit Sleep Disorders Ctr [facility] [address] [place] [phone] Margie Gutierrez, DO [address] [place] [address] Health Maintenance Due Date Last Done Comments Depression Monitoring 1976 HIV Screening 01/11/1979 DTap/Tdap Vaccines (1 - Tdap) 01/11/1983 Pneumococcal Vaccine: Pediatrics (0 to 5 Years) and At-Risk Patients (6 to 64 Years) (1 of 2 - PCV) 01/11/1983 Zoster [...] this encounter Medical Devices Implanted Type Area Court Liaison Device Identifier Shelf Expiration Date Model / Serial / Lot Port Implant W8f Poly Cath - [id number] Implanted:Qty : 1 on 04/20/2024 by Nathan Hardwick MD at [facility] Right: Chest CR BARD : PERIPHERAL VASCULAR [id number] 06/25/2025 [id number] / / [id number] documented as of this encounter Care Teams Sidewalk Repairer Relationship Specialty Start Date End Date Richard Marshall DO 16 [place] [address] PCP - General Family Medicine 08/26/22 documented as of this encounter
--- OUTSIDE RECORDS SUMMARY | 2024-08-11 03:30 | External Medical Summary | Summary of Care ---
Author Name Unknown Organization [facility] Address [address] [facility] [place] [address] Phone [phone] Care Team Providers Care Measurer Name Role Phone Richard Marshall DO Primary Care Provider [phone] Encounter Details Date Type Department Care Team (Late st Contact Info) Description 07/18/2024 Telephone Hematology/Oncology [facility] [place]reen [place] [address] [facility] [address] Nicole Vinson MD Allergies Active [...] Respimat 2.5-2.5 MCG/ACT Inhalation Aerosol Solution (Tiotropium [place]-Olodaterol )Indications:COPD, severity to be determined (HCC) Inhale [...] 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 Cardiology appt 09/19/24. Cardiology: clearance is needed prior to patient resuming bevacizumab due to prior CO noted on 07/12/24 PET. Can this appt [...] PM EST Cardiac Studies Cardiac Studies, [facility] 132 [facility] [place] [address] 08/08/2024 9:00 AM EST Laboratory Laboratory [facility] 200 [address] [place] [phone] [facility] Lab [facility] 200 [facility] [place] [address] 08/08/2024 9:30 AM EST Office Visit Hematology/Oncology [facility] [address] [place] [phone] Mayte Tatum CRNP [address] [place] [address] 08/08/2024 10:00 AM EST Hem/Onc Treatment Hematology/Oncology Treatment, [place] [address] [place] [phone] Shereen, Chair 2 Hem Onc [address] [place] [address] 09/06/2024 8:45 AM EST Office Visit Ophthalmology, [facility] [address] [place] [address] Anthony Grey, DO [address] [place] [address] 09/19/2024 9:00 AM EST Office Visit Cardiology, [place] 400 [facility] [place] [address] Abner Weir, DO 400 [facility] [address] 03/10/2025 10:00 AM EDT Office Visit Sleep Disorders Ctr [facility] [address] [place] [phone] Margie Gutierrez, DO [address] [place] [address] Health Maintenance Due Date Last Done Comments [...] this encounter Medical Devices Implanted Type Area Site Promotion Agent Device Identifier Shelf Expiration Date Model / Serial / Lot Port Implant W8f Poly Cath - [id number] Implanted:Qty : 1 on 04/20/2024 by Nathan Hardwick MD at [facility] Right: Chest CR BARD : PERIPHERAL VASCULAR [id number] 06/25/2025 [id number] / / [id number] documented as of this encounter Care Teams Measurer Relationship Specialty Start Date End Date Richard Marshall DO 16 [place] [address] PCP - General Family Medicine 08/26/22 documented as of this encounter
--- OUTSIDE RECORDS SUMMARY | 2024-08-11 03:30 | External Medical Summary | Summary of Care ---
Author Name Unknown Organization [facility] Address [address] [facility] [place] [address] Phone [phone] Care Team Providers Care Cushion Spring Assembler Name Role Phone Richard Marshall DO Primary Care Provider [phone] Encounter Details Date Type Department Care Team (Late st Contact Info) Description 07/18/2024 Telephone [facility]ology[facility] [address] [facility] [address] Nicole Vinson MD Allergies Active [...] Respimat 2.5-2.5 MCG/ACT Inhalation Aerosol Solution (Tiotropium [place]-Olodaterol )Indications:COPD, severity to be determined (HCC) Inhale [...] 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 Can this appt [...] 2:00 PM EST Cardiac Studies Cardiac Studies, [facility] 132 [facility] [place] [address] 08/08/2024 9:00 AM EST Laboratory Laboratory [address]ery [place] [address] [place] [phone] [place], Lab Scenery [address] [facility] [place] [address] 08/08/2024 9:30 AM EST Office Visit Hematology/Oncology [facility] 200 [facility] [place], [place] [phone] Mayte Tatum CRNP 400 [facility] [place] [address] 08/08/2024 10:00 AM EST Hem/Onc Treatment Hematology/Oncology Treatment, [place] [address] [facility] [address] [place], [place] [phone] Shereen, Chair 2 Hem Onc [facility] 200 [facility] [place] [address] 09/06/2024 8:45 AM EST Office Visit Ophthalmology, [facility] [address] [place] [address] Anthony Grey, DO 132 [facility] [place] [address] 09/19/2024 9:00 AM EST Office Visit Cardiology, [place] [address] [place] [address] Abner Weir DO 400 [facility] [address] 03/10/2025 10:00 AM EDT Office Visit Sleep Disorders Ctr [facility] 132 [facility] [place] [phone] Margie Gutierrez, DO [address] [place] [address] Health Maintenance Due Date Last Done Comments [...] this encounter Medical Devices Implanted Type Area Line Assembler Aircraft Device Identifier Shelf Expiration Date Model / Serial / Lot Port Implant W8f Poly Cath - [id number] Implanted:Qty : 1 on 04/20/2024 by Nathan Hardwick MD at OR [facility] Right: Chest CR BARD : PERIPHERAL VASCULAR [id number] 06/25/2025 [id number] / / [id number] documented as of this encounter Care Teams Cushion Spring Assembler Relationship Specialty Start Date End Date Richard Marshall DO 16 [place] [address] PCP - General Family Medicine 08/26/22 documented as of this encounter
--- OUTSIDE RECORDS SUMMARY | 2024-08-11 03:30 | External Medical Summary | Summary of Care ---
Author Name Unknown Organization [facility] Address [address] [facility] [address] Phone [phone] Care Team Providers Care Embossing Press Operator Molded Goods Name Role Phone Richard Marshall DO Primary Care Provider [phone] Reason for Visit * Reason Comments Medication Administration Fulphila * Episode Based Medications (Routine) - Authorized Specialty Diagnoses / Procedures Referred By Contac t Referred To Contact Diagnoses Cancer, metastatic to bone (HCC) 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) Encounter for antineoplastic chemotherapy Prevention of chemotherapy-induced neutropenia Procedures SD CARBOPLATIN INJECTION SD FOSAPREPITANT INJECTION SD INJ., ZIRABEV, 10 MG SD PACLITAXEL INJECTION SD INJECTION, UDENYCA 0.5 MG SD INJ MVASI 10 MG SD INJECTION, Nicole Wise MD Hematology/Oncology Treatment, [address] [address] Phone: tel: fax: Referral ID Status Reason Start Date Expiration Date V isits Requested Visits Authorized [id number] Authorized 05/31/2024 09/24/2024 [id number] Encounter Details Date Type Department Care Team (Latest Contact Info) Description 07/19/2024 3:45 PM EST Immunization/ Injection Hematology/Oncology Treatment, [address] [address] Shereen, Chair 9 Hem Onc [address] [address] Cancer, metastatic to bone (HCC)*; 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); Encounter for antineoplastic chemotherapy; Prevention of chemotherapy-induced neutropenia Allergies Active Allergy Reactions Criticality Noted Date Comments Iodinated Contrast Media 07/05/2021 "itchy, rash and hives" CT Scan documented as of this encounter (statuses as of 07/21/2024) Medications Vitamin D (Cholecalciferol) 50 MCG (2000 UT) Oral Capsule Take by mouth at bedtime. Active Ferrous Sulfate 325 (65 Fe) MG Oral Tablet (Feosol) Take 1 Tablet by mouth at bedtime. 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 Fulphila given and patient discharged with spouse. documented in this encounter Plan of Treatment Upcoming Encounters Date Type Department Care Team (Late st Contact Info) Description 07/25/2024 2:00 PM EST Cardiac Studies Cardiac Studies, [facility] [place] [address] 08/08/2024 9:00 AM EST Laboratory Laboratory [facility] [address] [place] [phone] [place], Lab [facility] 200 [facility] [place] [address] 08/08/2024 9:30 AM EST Office Visit Hematology/Oncology [facility] [address] [place] [phone] Mayte Tatum CRNP [address] [place] [address] 08/08/2024 10:00 AM EST Hem/Onc Treatment Hematology/Oncology Treatment, [place] [address] [place] [phone] Shereen, Chair 2 Hem Onc [facility] [address] [place] [address] 09/06/2024 8:45 AM EST Office Visit Ophthalmology, [facility] [address] [place] [address] Anthony Grey DO 132 [place] [address] 09/19/2024 9:00 AM EST Office Visit Cardiology, [place] [address] [place] [address] Abner Weir, DO [address] [place] [address] 03/10/2025 10:00 AM EDT Office Visit Sleep Disorders Ctr [facility] [address] [place] [address] Margie Gutierrez, [address] [place] [address] Health Maintenance Due Date Last Done Comments [...] this encounter Medical Devices Implanted Type Area Mentally Retarded Teacher Device Identifier Shelf Expiration Date Model / Serial / Lot Port Implant W8f Poly Cath - [id number] Implanted:Qty : 1 on 04/20/2024 by Nathan Hardwick MD at OR [facility] Right: Chest CR BARD : PERIPHERAL VASCULAR [id number] 06/25/2025 [id number] / / [id number] documented as of this encounter Visit Diagnoses [...] 6 mg 6 mg, Subcutaneous, ONCE, On Thu07/19/24 at 1630, For 1 doseIndications:Cancer, metastatic to bone (HCC),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),Encounter for antineoplastic chemotherapy,Prevention of chemotherapy-induced neutropenia Given 07/19/2024 3:53 PM EST 6 mg Arm Right Upper documented in this encounter Care Teams Embossing Press Operator Molded Goods Relationship Specialty Start Date End Date Richard Marshall DO 16 [place] [address] PCP - General Family Medicine 08/26/22 documented as of this encounter
--- OUTSIDE RECORDS SUMMARY | 2024-08-11 03:30 | External Medical Summary | Summary of Care ---
Author Name Unknown Organization [facility] Address [address] [facility] [place] [address] Phone [phone] Care Team Providers Care Cigarette Tipper Name Role Phone Richard Marshall DO Primary Care Provider [phone] Encounter Details Date Type Department Care Team (Late st Contact Info) Description 07/21/2024 Orders Only Hematology/Oncology [facility] [place] [address] [facility] [place] [address] Luis Antonio Patton MD [address] [place] [id number] Allergies Active Allergy Reactions Criticality Noted Date [...] Respimat 2.5-2.5 MCG/ACT Inhalation Aerosol Solution (Tiotropium [place]-Olodaterol )Indications:COPD, severity to be determined (HCC) Inhale [...] 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 f ile documented as of this encounter Plan of Treatment Upcoming Encounters Date Type Department Care Team (Late st Contact Info) Description 07/25/2024 2:00 PM EST Cardiac Studies Cardiac Studies, [facility] [address] [facility] [place] [address] 08/08/2024 9:00 AM EST Laboratory Laboratory [facility] [address] [place] [phone] [place], Lab [facility] 200 [facility] [place] [address] 08/08/2024 9:30 AM EST Office Visit Hematology/Oncology [facility] 200 [facility] [place] [phone] Mayte Tatum CRNP [address] [place] [address] [place] [address] 08/08/2024 10:00 AM EST Hem/Onc Treatment Hematology/Oncology Treatment, [place] [address] [place] [phone] [place], Chair 2 Hem Onc [facility] 200 [facility] [place] [address] 09/06/2024 8:45 AM EST Office Visit Ophthalmology, [facility] [address] [place] [address] Anthony Grey, [address] [place] [address] 09/19/2024 9:00 AM EST Office Visit Cardiology, [place] [address] [place] [address] Abner Weir, [address] [place] [address] 03/10/2025 10:00 AM EDT Office Visit Sleep Disorders Ctr [facility] [address] [place] [phone] Margie Gutierrez, DO [address] [place] [address] Health Maintenance Due Date Last Done Comments [...] this encounter Medical Devices Implanted Type Area Ship Purser Device Identifier Shelf Expiration Date Model / Serial / Lot Port Implant W8f Poly Cath - [id number] Implanted:Qty : 1 on 04/20/2024 by Nathan Hardwick MD at [facility] Right: Chest CR BARD : PERIPHERAL VASCULAR [id number] 06/25/2025 [id number] / / [id number] documented as of this encounter Care Teams Cigarette Tipper Relationship Specialty Start Date End Date Richard Marshall DO [address] [place] [address] PCP - General Family Medicine 08/26/22 documented as of this encounter
--- OUTSIDE RECORDS SUMMARY | 2024-08-11 03:30 | External Medical Summary | Summary of Care ---
Author Name Unknown Organization [facility] [address] [facility] [address] Phone [phone] Care Team Providers Care Lead Welder Name Role Phone Richard Marshall DO Primary Care Provider + [phone] Reason for Visit * Reason Comments Medication Administration Fulphila * Episode Based Medications (Routine) - Authorized Specialty Diagnoses / Procedures Referred By Contac t Referred To Contact Diagnoses Cancer, metastatic to bone (HCC) 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) Encounter for antineoplastic chemotherapy Prevention of chemotherapy-induced neutropenia Procedures FL CARBOPLATIN INJECTION FL FOSAPREPITANT INJECTION FL INJ., ZIRABEV, 10 MG FL PACLITAXEL INJECTION FL INJECTION, UDENYCA 0.5 MG FL INJ MVASI 10 MG FL INJECTION, Nicole Wise MD Hematology/Oncology Treatment, [address] [address] Phone: tel: fax: Referral ID Status Reason Start Date Expiration Date V isits Requested Visits Authorized [id number] Authorized 05/31/2024 09/24/2024 [id number] Encounter Details Date Type Department Care Team (Latest Contact Info) Description 07/19/2024 3:45 PM EST Immunization/ Injection Hematology/Oncology Treatment, [address] [address] She[place], Chair 9 Hem Onc [address] [address] Cancer, metastatic to bone (HCC)*; 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); Encounter for antineoplastic chemotherapy; Prevention of chemotherapy-induced neutropenia Allergies Active Allergy Reactions Criticality Noted Date Comments Iodinated Contrast Media 07/05/2021 "itchy, rash and hives" CT Scan documented as of this encounter (statuses as of 07/19/2024) Medications Vitamin D (Cholecalciferol) 50 MCG (2000 UT) Oral Capsule Take by mouth at bedtime. Active Ferrous Sulfate 325 (65 Fe) MG Oral Tablet (Feosol) Take 1 Tablet by mouth at bedtime. Active Stiolto Respimat 2.5-2.5 MCG/ACT Inhalation Aerosol Solution (Tiotropium [place]-Olodaterol )Indications:COPD, severity to be determined (HCC) Inhale [...] as of this encounter (statuses as of 07/19/2024) Active Problems Problem Noted Date Diagnosed Date [...] as of this encounter (statuses as of 07/19/2024) Resolved Problems Problem Noted Date Diagnosed Date Resolved Date COPD, group A, by GOLD 2017 classification 07/07/2022 04/07/2024 Overview: Per COPD GOLD Classification COPD, severity to be determined 07/09/2021 07/10/2022 Overview: Per COPD GOLD Classification documented as of this encounter (statuses as of 07/19/2024) Immunizations Name Administration Dates Next Due Covid-19 [...] 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 Fulphila given and patient discharged with spouse. documented in this encounter Plan of Treatment Upcoming Encounters Date Type Department Care Team (Late st Contact Info) Description 07/25/2024 2:00 PM EST Cardiac Studies Cardiac Studies, [facility] [place] [address] 08/08/2024 9:00 AM EST Laboratory Laboratory [facility] [address] [place] [phone] [place], Lab [facility] 200 [facility] [place] [address] 08/08/2024 9:30 AM EST Office Visit Hematology/Oncology [facility] [address] [place] [phone] Mayte Tatum CRNP [address] [place] [address] 08/08/2024 10:00 AM EST Hem/Onc Treatment Hematology/Oncology Treatment, [place] [address] [place] [phone] [place], Chair 2 Hem Onc [facility] [address] [place] [address] 09/06/2024 8:45 AM EST Office Visit Ophthalmology, [facility] [address] [place] [address] Anthony Grey DO 132 [place] [address] 09/19/2024 9:00 AM EST Office Visit Cardiology, [place] [address] [place] [address] Abner Weir, DO [address] [place] [address] 03/10/2025 10:00 AM EDT Office Visit Sleep Disorders Ctr [facility] [address] [place] [phone] Margie Gutierrez, [address] [place] [address] Health Maintenance Due Date Last Done Comments [...] this encounter Medical Devices Implanted Type Area Stationary Engineer Device Identifier Shelf Expiration Date Model / Serial / Lot Port Implant W8f Poly Cath - [id number] Implanted:Qty : 1 on 04/20/2024 by Nathan Hardwick MD at OR [facility] Right: Chest CR BARD : PERIPHERAL VASCULAR [id number] 06/25/2025 [id number] / / [id number] documented as of this encounter Visit Diagnoses [...] Upper documented in this encounter Care Teams Lead Welder Relationship Specialty Start Date End Date Richard Marshall DO [address] [place] [address] PCP - General Family Medicine 08/26/22 documented as of this encounter
--- OUTSIDE RECORDS SUMMARY | 2024-08-11 03:30 | External Medical Summary | Summary of Care ---
Author Name Unknown Organization [facility] Address [address] [facility] [place] [address] Phone [phone] Care Team Providers Care Space Systems Operations Craftsman Name Role Phone Richard Marshall DO Primary Care Provider + [phone] Reason for Visit * Reason Comments Chemotherapy [...] 10 MG RI INJECTION, Nicole Wise MD [address] [facility] [place] [address] Phone: tel: fax: Hematology/Oncology Treatment, [address] [address] Phone: tel: fax: Referral ID Status Reason Start Date Expiration Date V isits Requested Visits Authorized [id number] Authorized 05/31/2024 09/24/2024 [id number] Encounter Details Date Type Department Care Team (Latest Contact Info) Description 07/18/2024 10:00 AM EST Hem/Onc Treatment Hematology/Oncolog y Treatment, [address] [phone] She[place], Chair 3 Hem Onc [address] [address] Cancer, metastatic to bone (HCC)*; 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); Encounter for antineoplastic chemotherapy; Prevention of chemotherapy-induced neutropenia Allergies Active Allergy Reactions Criticality Noted Date Comments Iodinated Contrast Media 07/05/2021 "itchy, rash and hives" CT Scan documented as of this encounter (statuses as of 07/18/2024) Medications Vitamin D (Cholecalciferol) 50 MCG (1999 UT) Oral Capsule Take by mouth at bedtime. Active Ferrous Sulfate 325 (65 Fe) MG Oral Tablet (Feosol) Take 1 Tablet by mouth at bedtime. Active Stiolto Respimat 2.5-2.5 MCG/ACT Inhalation Aerosol Solution (Tiotropium [place]-Olodaterol )Indications:COPD, severity to be determined ([facility] [...] as of this encounter (statuses as of 07/18/2024) Active Problems Problem Noted Date Diagnosed Date [...] as of this encounter (statuses as of 07/18/2024) Resolved Problems Problem Noted Date Diagnosed Date Resolved Date COPD, group A, by GOLD 2017 classification 07/07/2022 04/07/2024 Overview: Per COPD GOLD Classification COPD, severity to be determined 07/09/2021 07/10/2022 Overview: Per COPD GOLD Classification documented as of this encounter (statuses as of 07/18/2024) Immunizations Name Administration Dates Next Due Covid-19 Ad26, Single Dose (Jeffrey/J&J) 021 Seasonal Influenza, PF, 6 M & above, IM , (FluLaval or Fluzone) 07/18/2021 Seasonal Influenza, Trivalent, (IIV3), PF, (Fluz one) 04/04/2024 documented as of this encounter Social History Tobacco Use Types Packs/Day Years Used Date Smoking Tobacco: Former Cigarettes 1 35 1 [id number] Smokeless Tobacco: Never Alcohol Use Standard Drinks/Week Comments Not Currently 0 (1 standard drink = 0.6 oz pur e alcohol) Hunger Vital Sign Answer Date Recorded Within the past 12 months, y ou worried that your food would run out before you got the money to buy more. 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 file [...] Care Team (Late st Contact Info) Description 07/19/2024 3:45 PM EST Immunization/Injecti on Hematology/Oncology Treatment, [place] [facility] [place] [phone] [place], Chair 9 Hem Onc [facility] 200 [facility] [place] [address] 07/25/2024 2:00 PM EST Cardiac Studies Cardiac Studies, [facility] 132 [facility] [place] [address] 08/08/2024 9:00 AM EST Laboratory Laboratory [facility] 200 [facility] [place] [phone] She[place], Lab [address] [facility] [place] [address] 08/08/2024 9:30 AM EST Office Visit Hematology/Oncology [facility] [place] [address] [place] [phone] Mayte Tatum CRNP 400 [facility] [address] 08/08/2024 10:00 AM EST Hem/Onc Treatment Hematology/Oncology Treatment, [place] [address] [place] [phone] She[place], Chair 2 Hem Onc [address] [place] [address] 09/06/2024 8:45 AM EST Office Visit Ophthalmology, [facility] [address] [place] [address] Anthony Grey, DO [address] [place] [address] 09/19/2024 9:00 AM EST Office Visit Cardiology, [place] [address] [place] [address] Abner Weir DO 400 [facility] [address] 03/10/2025 10:00 AM EDT Office Visit Sleep Disorders [facility] [address] [place] [phone] Margie Gutierrez, DO [address] [place] [address] Pending Results Name Type Priority Associated Diagnoses Date /Time TROPONIN T, HIGH SENSITIVITY Lab Routine 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) 07/18/2024 3:41 PM EST BNP, NT-PRO Lab Routine 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) 07/18/2024 3:41 PM EST Health Maintenance Due Date Last Done [...] this encounter Medical Devices Implanted Type Area Family Support Specialist Device Identifier Shelf Expiration Date Model / Serial / Lot Port Implant W8f Poly Cath - [id number] Implanted:Qty : 1 on 04/20/2024 by Nathan Hardwick MD at OR [facility] Right: Chest CR BARD : PERIPHERAL VASCULAR [id number] 06/25/2025 [id number] / / [id number] documented as of this encounter Visit Diagnoses [...] ONCE PRN Other, Hypersensitivity Reaction, Starting on Thu07/18/24 at 1041, Until Thu07/19/24 at 1040, For 24 hoursIndications:Cancer, metastatic to bone (HCC),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),Encounter for antineoplastic chemotherapy,Prevention of chemotherapy-induced neutropenia EPINEPHrine 1 MG/ML inj 0.3 mg 0.3 mg, Intramuscular, ONCE PRN Other, Hypersensitivity Reaction or Anaphylaxis, Starting on Thu07/18/24 at 1041, Until Thu07/19/24 at 1040, For 24 hoursIndications:Cancer, metastatic to bone (HCC),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),Encounter for antineoplastic chemotherapy,Prevention of chemotherapy-induced neutropenia hEParin 100 UNIT/ML Lock Flush inj 500 Units 500 Units (5 mL), IV Lock, PRN Other, IV Flush, Starting on Thu07/18/24 at 1041, Until Thu07/19/24 at 1040, For 24 hours, Do not flush if lock, PICC, or central line not in place; IV infusing or unable to flush.Indications:Cancer, metastatic to bone (HCC),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),Encounter for antineoplastic chemotherapy,Prevention of chemotherapy-induced neutropenia Given 07/18/2024 3:40 PM EST 500 Units Hydrocortisone Sod Suc (PF) (Solu-Cortef) inj 100 mg 100 mg, IV Push, ONCE PRN Other, Hypersensitivity Reaction, Starting on Thu07/18/24 at 1041, Until Thu07/19/24 at 1040, For 24 hoursIndications:Cancer, metastatic to bone (HCC),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),Encounter for antineoplastic chemotherapy,Prevention of chemotherapy-induced neutropenia LORAzepam (Ativan) tab 0.5 mg 0.5 mg, Oral, ONCE PRN Anxiety, Nausea, Starting on Thu07/18/24 at 1145, Until DiscontinuedIndications:Canc er, metastatic to bone (HCC),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),Encounter for antineoplastic chemotherapy,Prevention of chemotherapy-induced neutropenia NSS infusion Intravenous, at 50 mL/hr, PRN, Starting on Thu07/18/24 at 1145, Until Discontinued, Maintenance lineIndications:Cancer, metastatic to bone (HCC),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),Encounter for antineoplastic chemotherapy,Prevention of chemotherapy-induced neutropenia Start Infusion 07/18/2024 10:42 AM EST 50 mL/hr oxygen GAS Inhalation, OXYGEN, First dose on Thu07/18/24 at 1115, Until Discontinued, Device/Managed by: Low [...] Flush, Starting on Thu07/18/24 at 1041, Until Thu07/19/24 at 1040, For 24 hours, Do not flush if lock, PICC, or central line not in place; IV infusing or unable to flush.Indications:Cancer, metastatic to bone (HCC),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),Encounter for antineoplastic chemotherapy,Prevention of chemotherapy-induced neutropenia Given 07/18/2024 3:40 PM EST 10 mL Inactive Administered Medications - up to 3 [...] 10:55 AM EST 150 mg 538.4 mL/hr PACLitaxel [...] AM EST 368 mg 170 mL/h r documented in this encounter Care Teams Space Systems Operations Craftsman Relationship Specialty Start Date End Date Richard Marshall DO 16 [facility] [place] [address] PCP - General Family Medicine 08/26/22 documented as of this encounter
--- OUTSIDE RECORDS SUMMARY | 2024-08-11 03:30 | External Medical Summary | Summary of Care ---
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 twice a day, along with OxyContin 40 mg BID, until recentlywhen she is needing to take 2 Percocet tablets every 8 hours prn for pain relief. No bowel or bladder symptoms. Patient describes his pain as a burning/aching sensation. Also reports that her right 2nd toe has pain and swelling particularly after weight-bearing for a long time. Plan of care discussed with the patient on 07/05/2024: Continue OxyContin 40 mg BID Increase Percocet to 1-2 tablets every 6-8 hours as needed for pain control, maintain log and bringit at next follow up appointment for review Refill for Percocet prescription sent to the pharmacy Patient has an upcoming PET scan next week on 07/12/2024 Patient wants to keep her follow up appointment on 07/18/2024 as previously scheduled. Start allopurinol 100 mg p.o. daily due to symptoms c/w gout. 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 Dx: Met adenoca with LN and bone mets. Completed XRT to T4 and left clavicle. Chemo Consent: 04/18/2024 Port Placement: completed on 04/20/2024 Seen by Ophthalmology on 04/26/2024 for right eye radiation retinopathy and received intra vitreal Avastin injection. 05/16/2024: Patient received cycle 1 , day 1 of Carboplatinum, paclitaxel, bevacizumab and Zometa. Patient has tolerated radiation therapy well and does not have any new complaints or concerns Continue the pain medication. She is currently on OxyContin 40 mg p.o. twice daily with breakthrough Percocet that she has needed to take 1-3 times per day. Decrease Dexamethasone from 8 mg to 4 mg daily due to T2 vertebral pain- Continue Oxycontin 40 mg every 12 hours for long-acting pain relief. Continue taking percocet 1-2 tablets prn for breakthrough pain. Lactulose prescription sent to your pharmacy. Labs on 06/06/2024: WBC 19.51, ANC 15.61, rest of the CBC normal. BUN 23, RBC + in UA Pt to receive C2 D1 of of Carboplatinum, paclitaxel and Bevacizumab with g-CSF on day 2 Will get PET scan around 07/15/2024 for treatment response just prior to the Cycle 4 Keflex 500 mg po QID x 10 days prescribed. PMH: Patient Active Problem List Diagnosis History of tobacco abuse GERD (gastroesophageal reflux disease) Mood disorder ([facility]) Major depressive disorder, recurrent episode, moderate ([facility]) KRYSTA (generalized anxiety disorder) Dermatillomania in adult COPD, group B, by GOLD 2017 classification ([facility]) Lung cancer metastatic to bone ([facility]) Encounter for antineoplastic chemotherapy Prevention of chemotherapy-induced neutropenia Current Outpatient Medications Medication Sig Dispense Refill oxyCODONE HCl ER 40 MG Oral Tablet ER 12 Hour Abuse-Deterrent (OxyCONTIN) Take 1 Tablet by mouth inthe morning and 1 Tablet before bedtime. 60 Tablet 0 oxyCODONE-Acetaminophen 5-325 MG Oral Tablet (Percocet) Take 2 Tablets by mouth every 6 hours as needed for Pain, Moderate. 60 Tablet 0 dexAMETHasone 1.5 MG Oral Tablet Take 1 Tablet by mouth daily for 7 days, THEN 0.5 Tablets daily for 7 days, THEN 0.25 Tablets daily for 7 days. 13 Tablet 0 Vitamin D (Cholecalciferol) 50 MCG (2000 UT) Oral Capsule Take by mouth at bedtime. Ferrous Sulfate 325 (65 Fe) MG Oral Tablet (Feosol) Take 1 Tablet by mouth at bedtime. Stiolto Respimat 2.5-2.5 MCG/ACT Inhalation Aerosol Solution (Tiotropium Colo-Olodaterol) Inhale2 Puffs by mouth daily. 12 g [...] 1HR PRIOR TO ACCESSING. 30 g 1 Cephalexin 500 MG Oral Capsule (Keflex) Take 1 Capsule by mouth in the morning and 1 Capsule at noon and 1 Capsule in the evening and 1 Capsule before bedtime. 40 Capsule 0 OLANZapine 10 MG Oral Tablet (zyPREXA) Take 1 Tablet by mouth at bedtime. On days 1, 2, 3, and 4 ofchemo. 30 Tablet 0 Allopurinol 100 MG Oral Tablet (Zyloprim) Take 1 Tablet by mouth in the morning. 90 Tablet 1 Current Facility-Administered Medications Medication Dose Route Frequency Provider Last Rate Last Admin bevaCIZumab (Avastin) inj 1.25 mg 1.25 mg Intravitreal PRN Anthony Grey DO 1.25 mg at 06/28/24 0901 ROPivacaine (Naropin) inj 1.5 mg 1.5 mg Injection PRN Anthony Grey, DO 1.5 mg at 06/28/24 0901 Review of patient's allergies indicates: Allergen Reactions Iodinated Contrast Media "itchy, rash and hives" CT Scan Review of Systems Constitutional: Negative. HENT: Negative. Eyes: Negative. Respiratory: Negative. Cardiovascular: Negative. Gastrointestinal: Negative. Endocrine: Negative. Genitourinary: Negative. Musculoskeletal: Positive for back pain (mid back and left collar bone pain- improved significantly). Skin: Negative. Allergic/Immunologic: Negative. Neurological: Negative. Hematological: Negative. Psychiatric/Behavioral: Negative. Objective BP 112/79 (BP Site: Left Arm, BP Position: Sitting, BP Cuff Size: Large) | Pulse 82 | Temp 36.6 C(97.8 F) (Tympanic) | Wt 82.2 kg (181 lb 3.2 oz) | SpO2 91% | BMI 31.10 kg/m | BSA 1.93 m Physical Exam Constitutional: General: She is not in acute distress. Appearance: Normal appearance. Eyes: General: No scleral icterus. Cardiovascular: Rate and Rhythm: Normal rate and regular rhythm. Heart sounds: No murmur heard. Pulmonary: Effort: Pulmonary effort is normal. Breath sounds: Normal breath sounds. Abdominal: General: Bowel sounds are normal. Palpations: Abdomen is soft. Musculoskeletal: General: No tenderness. Cervical back: Normal range of motion and neck supple. No tenderness. Right lower leg: No edema. Left lower leg: No edema. Lymphadenopathy: Cervical: No cervical adenopathy. Skin: Coloration: Skin is not jaundiced or pale. Findings: No bruising. Comments: R chest wall mediport Neurological: General: No focal deficit present. Mental Status: She is alert and oriented to person, place, and time. ASSESSMENT/PLAN: 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) (Primary) - ALTERATION OF TREATMENT PLAN - TROPONIN T, HIGH SENSITIVITY; Future; Expected date: 07/18/2024 - BNP, NT-PRO; Future; Expected date: 07/18/2024 - ECHO, COMPLETE (2D), TRANS-THORACIC - CARDIOLOGY REFERRAL OP - oxyCODONE HCl ER 40 MG Oral Tablet ER 12 Hour Abuse-Deterrent (OxyCONTIN); Take 1 Tablet by mouthin the morning and 1 Tablet before bedtime. - oxyCODONE-Acetaminophen 5-325 MG Oral Tablet (Percocet); Take 2 Tablets by mouth every 6 hours as needed for Pain, Moderate. - dexAMETHasone 1.5 MG Oral Tablet; Take 1 Tablet by mouth daily for 7 days, THEN 0.5 Tablets dailyfor 7 days, THEN 0.25 Tablets daily for 7 days. - EKG Recurrent adenocarcinoma of lung, unspecified laterality (HCC) - oxyCODONE HCl ER 40 MG Oral Tablet ER 12 Hour Abuse-Deterrent (OxyCONTIN); Take 1 Tablet by mouthin the morning and 1 Tablet before bedtime. Pain from bone metastases (HCC) - oxyCODONE HCl ER 40 MG Oral Tablet ER 12 Hour Abuse-Deterrent (OxyCONTIN); Take 1 Tablet by mouthin the morning and 1 Tablet before bedtime. Cancer, metastatic to bone (HCC) - oxyCODONE HCl ER 40 MG Oral Tablet ER 12 Hour Abuse-Deterrent (OxyCONTIN); Take 1 Tablet by mouthin the morning and 1 Tablet before bedtime. Lesion of thoracic vertebra - oxyCODONE HCl ER 40 MG Oral Tablet ER 12 Hour Abuse-Deterrent (OxyCONTIN); Take 1 Tablet by mouthin the morning and 1 Tablet before bedtime. Drug-induced constipation - oxyCODONE HCl ER 40 MG Oral Tablet ER 12 Hour Abuse-Deterrent (OxyCONTIN); Take 1 Tablet by mouthin the morning and 1 Tablet before bedtime. Follow-up: Return in about 3 weeks (around 08/08/2024). | Check-out note: HOLD AVASTIN UNTIL CARDIOLOGY CLEARANCE. Okay to continue chemotherapy CARBOPLATINUM AND TAXOL-cycle 4 to be given today on 07/18/2024 MediPort function check to be tested today. If there is a problem then we will refer to Interventional Radiology for assessment. You can still get the chemotherapy today via peripheral IV. OxyContin and Percocet refill today. EKG today We will add cardiac tests to the blood already drawn earlier today. Echocardiogram ordered to performed in next 1-2 weeks. Cardi Follow-up: Return in about 3 weeks (around 08/08/2024). | Check-out note: ology consultation for possible silent myocardial infarction. If found to have had a myocardial infarction, we have to discontinue Avastin. Dexamethasone taper sent to the pharmacy Follow up me in 3 weeks. Nicole Vinson MD documented in this encounter Nursing Notes * Adrianna Soto MED ASSIST - 07/18/2024 9:31 AM EST Patient identifed by name and birthdate Do you have any concerns about pain management for today's visit? Yes. Patient instructed to discuss pain concerns with provider during the visit today Living Will or Advance Directive for Health Care as noted on the problem list. [facility] is a way you can talk to your provider on line through e-mail. Would you like to sign up? I can activate it for you? ALREADY ACTIVE Filed Vitals: 07/18/24 0929 BP: 112/79 Pulse: 82 Temp: 36.6 C (97.8 F) TempSrc: Tympanic SpO2: 91% Weight: 82.2 kg (181 lb 3.2 oz) Patient was instructed to not get up on the exam table/exam chair until directed and assisted by their provider; patient is to remain seated in the chair/ wheelchair/ exam table/ exam chair for fall prevention and safety reasons. Patient is aware to have assistance to step down off exam table/exam chair with personnel. Patient voiced full comprehension of instructions. documented in this encounter Plan of Treatment Upcoming Encounters Date Type Department Care Team (Late st Contact Info) Description 07/19/2024 3:45 PM EST Immunization/Injecti on Hematology/Oncology Treatment, [place] [address] [place] [phone] Shereen, Chair 9 Hem Onc Scenery [address] [place] [address] 07/25/2024 2:00 PM EST Cardiac Studies Cardiac Studies, [facility] [place] [address] [facility] [place] [address] 08/08/2024 9:00 AM EST Laboratory [facility] [address] [place], [place] [phone] Shereen, Lab Scenery [address] [place], [place] [address] 08/08/2024 9:30 AM EST Office Visit Hematology/Oncology [place] [address] [place], [place] [phone] Mayte Tatum CRNP [address] [place] [address] 08/08/2024 10:00 AM EST Hem/Onc Treatment Hematology/Oncology Treatment, [place] [address] [place], [place] [phone] Shereen, Chair 2 Hem Onc Scenery [address] [place] [address] 09/06/2024 8:45 AM EST Office Visit Ophthalmology, [facility] [address] [facility] [place] [address] Anthony Grey, DO [address] [place] [address] 09/19/2024 9:00 AM EST Office Visit Cardiology, [place] [address] [facility] [place] [address] Abner Weir, DO [address] [facility] [place] [address] 03/10/2025 10:00 AM EDT Office Visit Sleep Disorders [facility] [place] [phone] Margie Gutierrez, DO [address] [place] [address] Pending Results Name Type Priority Associated Diagnoses Date /Time BNP, NT-PRO Lab Routine 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) 07/18/2024 3:41 PM EST Scheduled Orders Name Type Priority Associated Diagnoses Orde r Schedule BNP, NT-PRO Lab Routine 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) Expected: 07/18/2024, Expires: 07/18/2025 ECHO, COMPLETE (2D), TRANS-THORACIC Echocardiology STAT 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) Ordered: 07/18/2024 EKG EKG STAT 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) Ordered: 07/18/2024 Scheduled Referrals Name Type Priority Associated Diagnoses Orde r Schedule CARDIOLOGY REFERRAL OP Referral Within 3 days (urgent) 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) Ordered: 07/18/2024 Health Maintenance Due Date Last Done Comments [...] this encounter Medical Devices Implanted Type Area Materials Management Manager Device Identifier Shelf Expiration Date Model / Serial / Lot Port Implant W8f Poly Cath - [id number] Implanted:Qty : 1 on 04/20/2024 by Nathan Hardwick MD at [facility] Right: Chest CR BARD : PERIPHERAL VASCULAR [id number] 06/25/2025 [id number] / / [id number] documented as of this encounter Results * TROPONIN T, HIGH SENSITIVITY (07/18/2024 3:41 PM EST) Troponin T, High Sensitivity <6 <=14 ng/L 07/18/2024 10:30 PM EST [facility] Blood Venous blood specimen / Unknown Venipuncture / Unknown 07/18/2024 3:41 PM EST 07/18/2024 3:41 PM EST Nicole Vinson MD LAB BLOOD OR DERABLES Final Result [facility] [address] [place] [address] documented in this encounter Visit Diagnoses Diagnosis 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)- Primary Recurrent adenocarcinoma of lung, unspecified laterality (HCC) Pain from bone metastases (HCC) Cancer, metastatic to bone (HCC) Secondary malignant neoplasm of bone and bone marrow Lesion of thoracic vertebra Drug-induced constipation Other constipation documented in this encounter Care Teams Horse Race Timer Relationship Specialty Start Date End Date Richard Marshall DO [address] [place] [address] [phone] PCP - General Family Medicine 08/26/22 documented as of this encounter
--- OUTSIDE RECORDS SUMMARY | 2024-08-11 03:30 | External Medical Summary | Summary of Care ---
Author Name Unknown Organization [facility] Address [address] [facility] [place] [address] Phone [phone] Care Team Providers Care Director Medical Writing Name Role Phone Richard Marshall DO Primary Care Provider [phone] Encounter Details Date Type Department Care Team (Late st Contact Info) Description 07/19/2024 Orders Only Hematology/Oncology [facility] [place] [address] [facility] [place] [phone] Luis Antonio Patton MD [address] [place] [address] Allergies Active Allergy Reactions Criticality Noted Date [...] Respimat 2.5-2.5 MCG/ACT Inhalation Aerosol Solution (Tiotropium Woodruff-Olodaterol )Indications:COPD, severity to be determined (HCC) Inhale [...] 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 Not on file Not on f ile documented as of this encounter Plan of Treatment Upcoming Encounters Date Type Department Care Team (Late st Contact Info) Description 07/19/2024 3:45 PM EST Immunization/Injecti on Hematology/Oncology [facility], [place] [address] [facility] [phone] Shereen, Chair [address] Hem On[address] [place] [address] 07/25/2024 2:00 PM EST Cardiac Studies Cardiac Studies, [facility] [place] [address] [facility] [place] [address] 08/08/2024 9:00 AM EST Laboratory Laboratory [facility] [place] [address] [facility] [place] [phone] [place], Lab [address] [facility] [place] [address] 08/08/2024 9:30 AM EST Office Visit Hematology/Oncology [facility] [address] [place] [phone] Mayte Tatum CRNP [address] [facility] [place] [address] 08/08/2024 10:00 AM EST Hem/Onc Treatment Hematology/Oncology Treatment, [place] [address] [facility] [phone] [place], Chair 2 Hem Onc [address] [place] [address] 09/06/2024 8:45 AM EST Office Visit Ophthalmology, [facility] [address] [place] [address] Anthony Grey, DO [address] [place] [address] 09/19/2024 9:00 AM EST Office Visit Cardiology, [place] [address] [place] [address] Abner Weir, DO [address] [place] [address] 03/10/2025 10:00 AM EDT Office Visit Sleep Disorders [facility] [address] [place] [phone] Margie Gutierrez, DO [address] [place] [address] Health Maintenance Due Date Last Done Comments [...] this encounter Medical Devices Implanted Type Area Residential Counselor Device Identifier Shelf Expiration Date Model / Serial / Lot Port Implant W8f Poly Cath - [id number] Implanted:Qty : 1 on 04/20/2024 by Nathan Hardwick MD at [facility] Right: Chest CR BARD : PERIPHERAL VASCULAR [id number] 06/25/2025 [id number] / / [id number] documented as of this encounter Care Teams Director Medical Writing Relationship Specialty Start Date End Date Richard Marshall DO [address] [place], [place] [phone] PCP - General Family Medicine 08/26/22 documented as of this encounter
--- OUTSIDE RECORDS SUMMARY | 2024-08-11 03:31 | External Medical Summary ---
Author Name Unknown Address Unknown Organization K09:[facility] [place] [address] Laboratory Report Ordering Provider Test Date Status RAMSEY ROCHAJUAN MANUEL 07/18/2024 08:44:55 Final Observation Date Value Abnormality Reference (Units ) Status RBC, Urine 07/18/2024 08:44:55 6-9 Abnormal 0-2 (/HPF) Final WBC, Urine 07/18/2024 08:44:55 0-2 0-2 (/HPF) Final Bacteria [#/area] in Urine sediment by Microscopy high power field 07/18/2024 08:44:55 0-25 0-25 (/HPF) Final Performing Location [facility] [place] [address]
--- OUTSIDE RECORDS SUMMARY | 2024-08-11 03:31 | External Medical Summary | Summary of Care ---
Author Name Unknown Organization [facility] Address [address] [facility] [place] [address] Phone [phone] Care Team Providers Care Tin Plater Name Role Phone Richard Marshall DO Primary Care Provider + [phone] Reason for Visit * Reason Comments Outpatient Testing Encounter Details Date Type Department Care Team (Late st Contact Info) Description 07/18/2024 8:50 AM EST Laboratory Laboratory [facility] [place] [address] [place] [phone] [facility] [address] [place] [address] 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); Cancer, metastatic to bone (HCC) Allergies Active Allergy [...] Respimat 2.5-2.5 MCG/ACT Inhalation Aerosol Solution (Tiotropium [place]-Olodaterol )Indications:COPD, severity to be determined ([facility]) Inhale 2 Puffs by mouth daily. 12 [...] before bedtime. 40 Capsule 06/07/20 24 Active oxyCODONE HCl ER 40 MG Oral Tablet ER 12 Hour Abuse-Deterrent (OxyCONTIN)Indicat ions: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),Recurrent adenocarcinoma of lung, unspecified laterality (HCC),Pain from bone metastases (HCC),Cancer, metastatic to bone (HCC),Lesion of thoracic vertebra,Drug-philipp sirisha constipation Take 1 Tablet by mouth in the morning and 1 Tablet before bedtime. 60 Tablet 06/16/20 24 Active dexAMETHasone 4 MG Oral Tablet (Decadron)Indicati ons: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),Pain from bone metastases (HCC),Cancer, metastatic to bone (HCC),Lesion of thoracic vertebra Take 1 Tablet by mouth daily with breakfast. 60 Tablet 06/16/20 24 Active OLANZapine 10 MG Oral Tablet (zyPREXA)Indicatio ns:Cancer, metastatic to bone (HCC),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),Encounter for antineoplastic chemotherapy,Preve ntion of chemotherapy-induc ed neutropenia Take 1 Tablet by mouth at bedtime. On days 1, 2, 3, and 4 of chemo. 30 Tablet 06/27/20 24 Active oxyCODONE-Acetamin ophen 5-325 MG Oral Tablet (Percocet)Indicati ons: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) Take 2 Tablets by mouth every 6 hours as needed for Pain, Moderate. 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 on file Not on f ile documented as of this encounter Plan of Treatment Upcoming Encounters Date Type Department Care Team (Late st Contact Info) Description 07/18/2024 9:30 AM EST Office Visit Hematology/Oncolog y [facility] [place] [address] [place] [phone] Nicole Vinson MD [address] [place] [address] [place] [phone] Date of visit: 07/18/2024 07/18/2024 10:00 AM EST Hem/Onc Treatment Hematology/Oncolog y Treatment, [place] [address] [place] [phone] [place], Chair 3 Hem Onc [facility] [address] [place] [address] Arrived 09/06/2024 8:45 AM EST Office Visit Ophthalmology, [facility] [place] [address] [place] [address] Anthony Grey, DO [address] [place] [phone] 03/10/2025 10:00 AM EDT Office Visit [facility] Disorders [facility] [place] [address] [place] [phone] Margie Gutierrez, DO [address] [place] [id number] Pending Results Name Type Priority Associated Diagnoses Date /Time COMPREHENSIVE METABOLIC PANEL Lab STAT 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) Cancer, metastatic to bone (HCC) 07/18/2024 8:40 AM EST URINALYSIS, REFLEX TO MICROSCOPIC Lab STAT 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) Cancer, metastatic to bone (HCC) 07/18/2024 8:44 AM EST MICROSCOPIC EXAM, URINE Lab STAT 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) Cancer, metastatic to bone (HCC) 07/18/2024 8:44 AM EST Health Maintenance Due Date Last [...] Lipid Panel 10/09/2026 10/09/2021, 07/09/2021 Diabetes Screening 06/27/2027 06/27/2024, 1 08/06/2023, 05/11/2024, Additional history exists Alpha-1 Antitrypsin Completed 10/09/2021 [...] this encounter Medical Devices Implanted Type Area Facing Machine Operator Device Identifier Shelf Expiration Date Model / Serial / Lot Port Implant [id number] Poly Cath - [id number] Implanted:Qty : 1 on 04/20/2024 by Nathan Hardwick MD at OR [facility] Right: Chest CR BARD : PERIPHERAL VASCULAR [id number] 06/25/2025 [id number] / / [id number] documented as of this encounter Procedures Procedure Name Priority Date/Time Associated Diagnosis Comments DIFFERENTIAL, AUTOMATED STAT 07/18/2024 8:40 AM EST 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) Cancer, metastatic to bone (HCC) CBC STAT 07/18/2024 8:40 AM EST 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) Cancer, metastatic to bone (HCC) CBC STAT 07/18/2024 8:40 AM EST 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) Cancer, metastatic to bone (HCC) DIFFERENTIAL, TECHNOLOGIST REVIEW Routine 07/18/2024 8:40 AM EST 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) Cancer, metastatic to bone (HCC) documented in this encounter Results * (ABNORMAL) DIFFERENTIAL, TECHNOLOGIST REVIEW (07/18/2024 8:40 AM EST) nRBCs 07/18/2024 8:55 AM EST [facility]-02 Reactive Lymphocytes Present(A ) None Seen 07/18/2024 8:55 AM EST [facility]-02 Blood Venous blood specimen / Unknown Venipuncture / Unknown 07/18/2024 8:40 AM EST 07/18/2024 8:41 AM EST us Nicole Vinson MD LAB BLOOD OR DERABLES Final Result [facility] [address] [place] [address] * DIFFERENTIAL, AUTOMATED (07/18/2024 8:40 AM EST) WBC 9.52 4.00 - 10.80 K/uL 07/18/2024 8:55 AM EST [facility] 56-02 Neutrophils % 73.4 40.0 - 75.0 % 07/18/2024 8:55 AM EST [facility] 56-02 Lymphocytes % 18.1 18.0 - 42.0 % 07/18/2024 8:55 AM EST [facility] 56-02 Monocytes % 7.4 1.0 - 11.0 % 07/18/2024 8:55 AM EST [facility] 56-02 Eosinophils % 0.6 0.0 - 6.0 % 07/18/2024 8:55 AM EST [facility] 56-02 Basophils % 0.5 0.0 - 2.0 % 07/18/2024 8:55 AM EST [facility] 56-02 Absolute Neutrophils 6.99 1.80 - 7.70 K/uL 07/18/2024 8:55 AM EST [facility] 56-02 Absolute Lymphocytes 1.72 1.00 - 4.80 K/ul 07/18/2024 8:55 AM EST [facility] 56-02 Absolute Monocytes 0.70 0.00 - 1.10 K/uL 07/18/2024 8:55 AM EST [facility] 56-02 Absolute Eosinophils 0.06 0.00 - 0.70 K/uL 07/18/2024 8:55 AM [facility] 56-02 Absolute Basophils 0.05 0.00 - 0.20 K/uL 07/18/2024 8:55 AM [facility] 56-02 Blood Venous blood specimen / Unknown Venipuncture / Unknown 07/18/2024 8:40 AM EST 07/18/2024 8:41 AM EST Nicole Vinson MD LAB BLOOD OR DERABLES Final Result [facility] [address] [place] [address] * CBC (07/18/2024 8:40 AM EST) WBC 9.52 4.00 - 10.80 K/uL 07/18/2024 8:55 AM [facility] 56- RBC 3.90 3.85 - 5.15 M/uL 07/18/2024 8:55 AM [facility] 56- HGB 12.1 12.0 - 15.3 g/dL 07/18/2024 8:55 AM [facility] 56- HCT 36.6 36.0 - 45.2 % 07/18/2024 8:55 AM [facility] 56- MCV 93.8 81.5 - 97.5 fL 07/18/2024 8:55 AM [facility] 56- MCH 31.0 27.0 - 34.0 pg 07/18/2024 8:55 AM [facility] 56- MCHC 33.1 32.0 - 36.0 g/dL 07/18/2024 8:55 AM [facility] 56- RDW 17.8 11.5 - 15.5 % 07/18/2024 8:55 AM [facility] 56- PLT 242 140 - 400 K/uL 07/18/2024 8:55 AM [facility] 56- MPV 9.0 6.6 - 11.1 fL 07/18/2024 8:55 AM [facility] 56- Blood Venous blood specimen / Unknown Venipuncture / Unknown 07/18/2024 8:40 AM EST 07/18/2024 8:41 AM EST Nicole Vinson MD LAB BLOOD OR DERABLES Final Result [facility] [address]- [address] [place] [address] documented in this encounter Visit Diagnoses Diagnosis 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) Cancer, metastatic to bone (HCC) Secondary malignant neoplasm of bone and bone marrow documented in this encounter Care Teams Tin Plater Relationship Specialty Start Date End Date Richard Marshall DO [address] [facility] [place] [phone] PCP - General Family Medicine 08/26/22 documented as of this encounter
--- OUTSIDE RECORDS SUMMARY | 2024-08-11 03:31 | External Medical Summary | Summary of Care ---
Author Name Unknown Organization [facility] Address [address] [facility] [address] Phone [phone] Care Team Providers Care Director [place] Sales Name Role Phone Richard Marshall DO Primary Care Provider [phone] Reason for Visit * Reason Comments Chemotherapy Chemo/recheck Encounter Details Date Type Department Care Team (Late st Contact Info) Description 06/27/2024 10:30 AM EST Office Visit Hematology/Oncology [facility] [place] [address] [facility] [address] Nicole Vinson MD [address] [facility] [place] [address] Cancer, metastatic to bone (HCC)*; 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); Encounter for antineoplastic chemotherapy; Prevention of chemotherapy-induced neutropenia Allergies Active Allergy Reactions Criticality Noted Date Comments Iodinated Contrast Media 07/05/2021 "itchy, rash and hives" CT Scan documented as of this encounter (statuses as of 07/05/2024) Medications Vitamin D (Cholecalciferol) 50 MCG (1999) Oral Capsule Take by mouth at bedtime. Active Ferrous Sulfate 325 (65 Fe) MG Oral Tablet (Feosol) Take 1 Tablet by mouth at bedtime. Active Stiolto Respimat 2.5-2.5 MCG/ACT Inhalation Aerosol Solution (Tiotropium [place]-Olodaterol )Indications:COPD, severity to be determined ([facility]) Inhale 2 Puffs by mouth [...] before bedtime. 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 60 Tablet 06/16/20 24 Active dexAMETHasone 4 [...] of chemo. 30 Tablet 06/27/20 24 Active OLANZapine 10 MG Oral Tablet (zyPREXA)Indicatio ns:Cancer, metastatic to bone (HCC),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),Encounter for antineoplastic chemotherapy,Preve ntion of chemotherapy-induc ed neutropenia Take 1 Tablet by mouth at bedtime. On days 1, 2, 3, and 4 of chemo. 4 Tablet 06/06/20 24 024 Discontin ued(Refil l) Hospital, Clinic, or Other Facility Administered Medication Ordered Dose Route Frequency Start Date End Date Status bevaCIZumab (Avastin) inj 1.25 mgIndications:Radiation retinopathy, subsequent encounter 1.25 mg IZ PRN 10/08/2023 10/07/2024 Active ROPivacaine (Naropin) inj 1.5 mgIndications:Radiation retinopathy, subsequent encounter 1.5 mg IJ PRN 10/08/2023 10/07/2024 Active documented as of this encounter (statuses as of 07/05/2024) Active Problems Problem Noted Date Diagnosed Date [...] as of this encounter (statuses as of 07/05/2024) Resolved Problems Problem Noted Date Diagnosed Date Resolved Date COPD, group A, by GOLD 2017 classification 07/07/2022 04/07/2024 Overview: Per COPD GOLD Classification COPD, severity to be determined 07/09/2021 07/10/2022 Overview: Per COPD GOLD Classification documented as of this encounter (statuses as of 07/05/2024) Immunizations Name Administration Dates Next Due Covid-19 [...] 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 Not on file Not on file Not on f ile documented as of this encounter Last Filed Vital Signs Vital Sign Reading Time Taken Comments Blood Pressure 137/81 06/27/2024 11:03 AM EST Pulse 86 06/27/2024 11:03 AM EST Temperature 36.8 C (98.3 F) 06/27/2024 11:[address] Respiratory Rate - - Oxygen Saturation 90% 06/27/2024 11:03 AM EST Inhaled Oxygen Concentration - - Weight 81.7 kg (180 lb 1.6 oz) 06/27/2024 11:03 AM EST Height - - Body Mass Index 30.91 04/20/2024 10:49 AM EDT documented in this encounter Progress Notes * Nicole Vinson MD - 06/27/2024 11:26 AM EST Date of visit: 06/27/2024 Subjective Lanny Andrews is a 59 year old female presents for follow up, she was last seen on D that 06/06/2024 re: Metastatic jst-dbxcq-zxhb lung cancer (adenocarcinoma) with LN and osseous metastasis and there receive day 1 cycle 2 Paclitaxel Carboplatinum and Bevacizumab. Date of last visit on 05/16/2024 to receive day 1 cycle 1 paclitaxel Carboplatinum bevacizumab and Zometa. HPI Lanny Andrews is a 59 year old female, presents for follow up re: met. NSCLC (adenocarcinoma) with LN and osseous mets. Patient was seen by radiation oncologist, Dr. Elton Schaefer on 04/27/2024 louise has completed XRT to the left clavicle medial head and the T2 thoracic vertebra (5 concurrent clavicle and T2 vertebral radiation fractions). The patient continues to have stable mid thoracic back pain as well as pain over her left clavicle-controlled with OxyContin 40 mg p.o. twice daily + Percocet 3/325- taking 2 tablets PO every 6 hours for breakthrough pain. 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 Postsurgical changes noted [...] or radiation therapy. She was seen by pulm, Dr. Olivia on 03/31/2024. She has [facility] consultation appt on 04/07/2024 at [facility], pt wants a closer ([facility]). GI revaluation for lower para esophageal uptake [...] the above diagnosis. Flow cytometry negativefor leukemia/lymphoma. Patient was last seen in Oncology Clinic on 04/18/2024 to discuss the results from the paraesophageal lymph node as well as left iliac bone bone biopsy. 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 40 Capsule 0 Vitamin D (Cholecalciferol) 50 MCG (1999 UT) Oral Capsule Take by mouth at bedtime. Ferrous Sulfate 325 (65 Fe) MG Oral Tablet (Feosol) Take 1 Tablet by mouth at bedtime. Stiolto Respimat 2.5-2.5 MCG/ACT Inhalation Aerosol Solution (Tiotropium [place]-Olodaterol) Inhale2 Puffs by mouth daily. 12 g [...] by mouth every 4 hours as needed. (Patient not taking: Reported on 01/18/2024) Ibuprofen 200 MG Oral Tablet (Motrin) Take [...] as needed for Nausea. 30 Tablet 5 oxyCODONE HCl ER 40 MG Oral Tablet ER 12 Hour Abuse-Deterrent (OxyCONTIN) Take 1 Tablet by mouth inthe morning and 1 Tablet before bedtime. 60 Tablet 0 oxyCODONE-Acetaminophen 5-325 MG Oral Tablet (Percocet) Take 2 Tablets by mouth every 6 hours as needed for Pain, Moderate. 60 Tablet 0 Loratadine 10 MG Oral Tablet (Claritin) Take 1 tablet x5 days starting the day of chemotherapy 30 Tablet 0 Lidocaine-Prilocaine 2.5-2.5 % External Cream (Emla) APPLY TO SKIN OVER MEDIPORT & COVER 1HR PRIOR TO ACCESSING. 30 g 1 dexAMETHasone 4 MG Oral Tablet (Decadron) Take 2 Tablets by mouth daily with breakfast. 60 Tablet 0 OLANZapine 10 MG Oral Tablet (zyPREXA) Take 1 Tablet by mouth at bedtime. On days 1, 2, 3, and 4 ofchemo. 4 Tablet 0 Current Facility-Administered Medications Medication Dose Route Frequency Provider Last Rate Last Admin bevaCIZumab (Avastin) inj 1.25 mg 1.25 mg Intravitreal PRN Anthony Grey, DO 1.25 mg at 04/26/24 0851 ROPivacaine (Naropin) inj 1.5 mg 1.5 mg Injection PRN Anthony Grey, DO 1.5 mg at 850 Review of patient's allergies indicates: Allergen Reactions Iodinated Contrast Media "itchy, rash and hives" CT Scan Review of Systems Constitutional: Negative. HENT: Negative. Eyes: Negative. Respiratory: Negative. Cardiovascular: Negative. Gastrointestinal: Negative. Endocrine: Negative. Genitourinary: Negative. Musculoskeletal: Positive for back pain (mid back and left collar bone pain- improved significantly). Skin: Negative. Allergic/Immunologic: Negative. Neurological: Negative. Hematological: Negative. Psychiatric/Behavioral: Negative. Objective BP 114/74 (BP Site: Left Arm, BP Position: Sitting, BP Cuff Size: Regular) | Pulse 77 | Temp 37 C(98.6 F) (Tympanic) | Wt 79.4 kg (175 lb 1.6 oz) | SpO2 95% | BMI 30.06 kg/m | BSA 1.89 m Physical Exam Constitutional: General: She is [...] No bruising. Comments: R chest wall mediport with erythema of the overlying skin, no purulence or tenderness Neurological: General: No focal deficit present. Mental Status: She is alert and oriented to person, place, and time. ASSESSMENT/PLAN: Lanny Andrews is a 59-year-old female, who is currently a non- smoker, she has a 35 pack-year smoking history and has quit 10 years ago with a significant past medical history of recurrent ngf-sqdjw-fqjr lung cancer (adenocarcinoma) that has recurrent several times (>3 times per pt- received treatment in [facility]), status post multiple surgical interventions between [...] mg po QID x 10 days prescribed. 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) (Primary) - Cephalexin 500 MG Oral Capsule (Keflex); Take 1 Capsule by mouth in the morning and 1 Capsule at noon and 1 Capsule in the evening and 1 Capsule before bedtime. Pain from bone metastases (HCC) Cancer, metastatic to bone (HCC) Lesion of thoracic vertebra Encounter for antineoplastic chemotherapy Prevention of chemotherapy-induced neutropenia - Cephalexin 500 MG Oral Capsule (Keflex); Take 1 Capsule by mouth in the morning and 1 Capsule at noon and 1 Capsule in the evening and 1 Capsule before bedtime. PLAN OF CARE DISCUSSED WITH PATIENT ON 06/06/2024 : Follow Up: Return in about 3 weeks (around 06/27/2024) for Chemo follow up. Cycle 3 chemo on 06/27/2024 Cycle 4 chemo on 07/18/2024 Change PET scan schedule to be done on 07/15/2024. Decrease dexamethasone daily dose from 8 mg to 4 mg daily. Keflex 500 mg po QID x 10 days for cellulitis Nicolewindy Vinson MD PMH: Patient Active Problem List Diagnosis History of tobacco abuse GERD (gastroesophageal reflux disease) Mood disorder (HCC) Major depressive disorder, recurrent episode, moderate (HCC) KRYSTA (generalized anxiety disorder) Dermatillomania in adult COPD, group B, by GOLD 2017 classification (HCC) 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) Encounter for antineoplastic chemotherapy Prevention of chemotherapy-induced neutropenia Current Outpatient Medications Medication Sig Dispense Refill OLANZapine 10 MG Oral Tablet (zyPREXA) Take 1 Tablet by mouth at bedtime. On days 1, 2, 3, and 4 ofchemo. 30 Tablet 0 Vitamin D (Cholecalciferol) 50 MCG (2000 UT) Oral Capsule Take by mouth at bedtime. Ferrous Sulfate 325 (65 Fe) MG Oral Tablet (Feosol) Take 1 Tablet by mouth at bedtime. Stiolto Respimat 2.5-2.5 MCG/ACT Inhalation Aerosol Solution (Tiotropium [place]-Olodaterol) Inhale2 Puffs by mouth daily. 12 g [...] 1 Capsule before bedtime. 40 Capsule 0 oxyCODONE HCl ER 40 MG Oral Tablet ER 12 Hour Abuse-Deterrent (OxyCONTIN) Take 1 Tablet by mouth inthe morning and 1 Tablet before bedtime. 60 Tablet 0 oxyCODONE-Acetaminophen 5-325 MG Oral Tablet (Percocet) Take 2 Tablets by mouth every 6 hours as needed for Pain, Moderate. 60 Tablet 0 dexAMETHasone 4 MG Oral Tablet (Decadron) Take 1 Tablet by mouth daily with breakfast. 60 Tablet 0 Current Facility-Administered Medications Medication Dose Route Frequency Provider Last Rate Last Admin bevaCIZumab (Avastin) inj 1.25 mg 1.25 mg Intravitreal PRN Anthony Grey, DO 1.25 mg at 06/28/24 0901 ROPivacaine (Naropin) inj 1.5 mg 1.5 mg Injection PRN Anthony Grey, DO 1.5 mg at 06/28/24 0901 Review of patient's allergies indicates: Allergen Reactions Iodinated Contrast Media "itchy, rash and hives" CT Scan Objective BP 137/81 (BP Site: Left Arm, BP Position: Sitting, BP Cuff Size: Regular) | Pulse 86 | Temp 36.8 C (98.3 F) (Tympanic) | Wt 81.7 kg (180 lb 1.6 oz) | SpO2 90% | BMI 30.91 kg/m | BSA 1.92 m ASSESSMENT/PLAN: Cancer, metastatic to bone (HCC) - OLANZapine 10 MG Oral Tablet (zyPREXA); Take 1 Tablet by mouth at bedtime. On days 1, 2, 3, and 4of chemo. 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) - OLANZapine 10 MG Oral Tablet (zyPREXA); Take 1 Tablet by mouth at bedtime. On days 1, 2, 3, and 4of chemo. Encounter for antineoplastic chemotherapy - OLANZapine 10 MG Oral Tablet (zyPREXA); Take 1 Tablet by mouth at bedtime. On days 1, 2, 3, and 4of chemo. Prevention of chemotherapy-induced neutropenia - OLANZapine 10 MG Oral Tablet (zyPREXA); Take 1 Tablet by mouth at bedtime. On days 1, 2, 3, and 4of chemo. Follow-up: Return in about 3 weeks (around 07/18/2024). | Check-out note: Continue the current chemotherapy Maintain hydration Decrease dexamethasone from 4 mg daily to 2 mg once a day starting 06/28/2024. PET scan scheduled for 07/12/2024 Follow up with me on 07/18/2024 just with the PET scan results and for cycle 4 of the current chemotherapy. Nicole Vinson MD documented in this encounter Nursing Notes * Brisa Levy CMA - 06/27/2024 11:04 AM EST Patient identifed by name and birthdate Do you have any concerns about pain management for today's visit? No Living Will or Advance Directive for Health Care as noted on the problem list. [facility] is a way you can talk to your provider on line through e-mail. Would you like to sign up? I can activate it for you? ALREADY ACTIVE Filed Vitals: 06/27/24 1103 BP: 137/81 Pulse: 86 Temp: 36.8 C (98.3 F) TempSrc: Tympanic SpO2: 90% Weight: 81.7 kg (180 lb 1.6 oz) Patient was instructed to not get [...] Care Team (Late st Contact Info) Description 07/12/2024 8:45 AM EST Imaging Radiology [address] [facility] [place] [address] 07/18/2024 8:50 AM EST Laboratory Laboratory [facility] [place] [address] [place] [id number] [facility] [address] [place] [address] 07/18/2024 9:30 AM EST Office Visit Hematology/Oncology [facility] [place] [address] [place] [phone] Nicole Vinson MD [address] [place] [address] [place] [phone] 07/18/2024 10:00 AM EST Hem/Onc Treatment Hematology/Oncology Treatment, [place] [address] [place] [phone] [place], Chair 3 Hem Onc [address] [place] [address] 09/06/2024 8:45 AM EST Office Visit Ophthalmology, [facility] [address] [place] [address] Anthony Grey, DO [address] [place] [address] 03/10/2025 10:00 AM EDT Office Visit Sleep Disorders Ctr [facility] [address] [place] [phone] Margie Gutierrez, DO [address] [place] [address] Health Maintenance Due Date Last Done Comments Pneumococcal Vaccine: Pediatrics (0 to 5 Years) and At-Risk Patients (6 to 64 Years) (1 of 2 - PCV) 01/11/1970 Depression Monitoring 1976 HIV Screening 01/11/1979 DTap/Tdap Vaccines (1 - Tdap) 01/11/1983 Zoster Vaccines (1 of 2) 01/11/1983 [...] Additional history exists Alpha-1 Antitrypsin Completed 10/09/2021 Lung Cancer Screening Completed 03/29/2024 , 03/07/2024, 05/04/2023, Additional history exists Influenza Vaccine (FLU shot) Completed 03/2024, 07/18/2021, 07/18/2021 HPV (Gardasil) Vaccine Aged Out No lo nger eligible based on patient's age to complete this topic Hepatitis B Vaccine Aged Out No longe r eligible based on patient's age to complete this topic MENINGOCOCCAL (MENACTRA/MENVEO) Aged Out No longer eligible based on patient's age to complete this topic documented as of this encounter Medical Devices Implanted Type Area Convention Worker Device Identifier Shelf Expiration Date Model / Serial / Lot Port Implant W8f Poly Cath - [id number] Implanted:Qty : 1 on 04/20/2024 by Nathan Hardwick MD at OR [facility] Right: Chest CR BARD : PERIPHERAL VASCULAR [id number] 06/25/2025 [id number] / / [id number] documented as of this encounter Visit Diagnoses Diagnosis Cancer, metastatic to bone (HCC)- Primary Secondary malignant neoplasm of bone and bone marrow 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) Encounter for antineoplastic chemotherapy Prevention of chemotherapy-induced neutropenia documented in this encounter Care Teams Director [place] Sales Relationship Specialty Start Date End Date Richard Marshall DO [address] [place] [address] PCP - General Family Medicine 08/26/22 documented as of this encounter
--- OUTSIDE RECORDS SUMMARY | 2024-08-11 03:31 | External Medical Summary ---
Author Name Unknown Address Unknown Organization [id number] [place] [address] Laboratory Report Ordering Provider Test Date Status EDD ROCHA 07/18/2024 08:40:46 Final Observation Date Value Abnormality Reference (Units ) Status WBC, Total 07/18/2024 08:40:46 9.52 4.00-10.8 0 (K/uL) Final RBC 07/18/2024 08:40:46 3.90 3.85-5.15 (M/uL) Final Hemoglobin 07/18/2024 08:40:46 12.1 12.0-15.3 (g/dL) Final HCT 07/18/2024 08:40:46 36.6 36.0-45.2 (%) Final MCV 07/18/2024 08:40:46 93.8 81.5-97.5 (fL) Final MCH 07/18/2024 08:40:46 31.0 27.0-34.0 (pg) Final MCHC 07/18/2024 08:40:46 33.1 32.0-36.0 (g/dL) Final RDW 07/18/2024 08:40:46 17.8 11.5-15.5 (%) Final Platelets 07/18/2024 08:40:46 242 140-400 (K /uL) Final MPV 07/18/2024 08:40:46 9.0 6.6-11.1 ( fL) Final Performing Location [facility] [place] [address]
--- OUTSIDE RECORDS SUMMARY | 2024-08-11 03:31 | External Medical Summary ---
Author Name Unknown Address Unknown Organization [id number] [place] [address] Laboratory Report Ordering Provider Test Date Status EDD ROCHA 07/18/2024 08:40:46 Final Observation Date Value Abnormality Reference (Units ) Status SYNC LEUKOCYTES IN BLOOD BY AUTOMATED COUNT 07/18/2024 08:40:46 9.52 4.00-10.80 (K/uL) Final Segs 07/18/2024 08:40:46 73.4 40.0-75.0 (%) Final Lymphs % 07/18/2024 08:40:46 18.1 18.0-42.0 (%) Final Monos 07/18/2024 08:40:46 7.4 1.0-11.0 (%) Final Eosinophils 07/18/2024 08:40:46 0.6 0.0-6.0 (%) Final Basos 07/18/2024 08:40:46 0.5 0.0-2.0 (%) Final Absolute Segs 07/18/2024 08:40:46 6.99 1.80-7.70 (K/uL) Final Lymphs, absolute 07/18/2024 08:40:46 1.72 1.00-4.80 (K/ul) Final Monos, Abs 07/18/2024 08:40:46 0.70 0.00-1.10 (K/uL) Final Eos, Abs 07/18/2024 08:40:46 0.06 0.00-0.70 (K/uL) Final Basos, Abs 07/18/2024 08:40:46 0.05 0.00-0.20 (K/uL) Final Performing Location [facility] [address] [place] [address]
--- OUTSIDE RECORDS SUMMARY | 2024-08-11 03:31 | External Medical Summary | Summary of Care ---
Author Name Unknown Organization [facility] Address [address] [facility] [place] [address] Phone [phone] Care Team Providers Care Box Repairer Name Role Phone Richard Marshall DO Primary Care Provider [phone] Encounter Details Date Type Department Care Team (Late st Contact Info) Description 07/18/2024 Telephone Hematology/Oncology [facility] [place] [address] [facility] [address] Nicole Vinson MD [address] [facility] [place] [phone] Allergies Active Allergy Reactions Criticality Noted Date Comments Iodinated Contrast Media 07/05/2021 "itchy, rash and hives" CT Scan documented as of this encounter (statuses as of 07/18/2024) Medications Vitamin D (Cholecalciferol) 50 MCG (1999) Oral Capsule Take by mouth at bedtime. Active Ferrous Sulfate 325 (65 Fe) MG Oral Tablet (Feosol) Take 1 Tablet by mouth at bedtime. 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 Vinson Alt today "HOLD AVASTIN UNTIL CLEARED BY CARDIOLOGY " Cardiology referral and Echo referral placed today. documented in this encounter Plan of Treatment Upcoming Encounters Date Type Department Care Team (Late st Contact Info) Description 09/06/2024 8:45 AM EST Office Visit Ophthalmology, [facility] [address] [place] [address] Anthony Grey, DO [address] [place] [address] 03/10/2025 10:00 AM EDT Office Visit Sleep Disorders Ctr [facility] [address] [place] [phone] Margie Gutierrez, DO [address] [place] [address] Health Maintenance Due Date Last Done Comments [...] this encounter Medical Devices Implanted Type Area Horse Show Judge Device Identifier Shelf Expiration Date Model / Serial / Lot Port Implant W8f Poly Cath - [id number] Implanted:Qty : 1 on 04/20/2024 by Nathan Hardwick MD at OR [facility] Right: Chest CR BARD : PERIPHERAL VASCULAR [id number] 06/25/2025 [id number] / / [id number] documented as of this encounter Care Teams Box Repairer Relationship Specialty Start Date End Date Richard Marshall DO [address] [facility] [place] [address] PCP - General Family Medicine 08/26/22 documented as of this encounter
--- OUTSIDE RECORDS SUMMARY | 2024-08-11 03:31 | External Medical Summary ---
Author Name Unknown Address Unknown Organization [facility] [place] [address] Laboratory Report Ordering Provider Test Date Status EDD ROCHA 07/18/2024 08:44:55 Final Observation Date Value Abnormality Reference (Units ) Status Color of Urine by Auto 07/18/2024 08:44:55 Yellow Light Yellow, Yellow, Dark Yellow Final Clarity, Urine 07/18/2024 08:44:55 Slightly Cloudy Abnormal Clear Final Glucose [Mass/volume] in Urine by Automated test strip 07/18/2024 08:44:55 Negative Negative (mg/dL) Final Bilirubin.total [Presence] in Urine by Automated test strip 07/18/2024 08:44:55 Negative Negative Final Ketones [Mass/volume] in Urine by Automated test strip 07/18/2024 08:44:55 Negative Negative (mg/dL) Final Specific gravity, Urine 07/18/2024 08:44:55 1.025 1.003-1.030 Final Hemoglobin [Presence] in Urine by Automated test strip 07/18/2024 08:44:55 Small Abnormal Negative Final pH, Urine 07/18/2024 08:44:55 6.0 5.0-7.5 (Units) Final Protein [Mass/volume] in Urine by Automated test strip 07/18/2024 08:44:55 Negative Negative (mg/dL) Final Urobilinogen [Mass/volume] in Urine by Automated test strip 07/18/2024 08:44:55 1.0 0.2, 1.0 (mg/dL) Final Nitrite [Presence] in Urine by Automated test strip 07/18/2024 08:44:55 Negative Negative Final Leukocyte esterase [Presence] in Urine by Automated test strip 07/18/2024 08:44:55 Negative Negative Final Performing Location [facility] [place] [address]
--- OUTSIDE RECORDS SUMMARY | 2024-08-11 03:31 | External Medical Summary ---
Author Name Unknown Address Unknown Organization K09:[facility] [address] [place] [address] Laboratory Report Ordering Provider Test Date Status EDD ROCHA 07/18/2024 08:40:46 Final Observation Date Value Abnormality Reference (Units ) Status BUN 07/18/2024 08:40:46 23 Above high normal 6-20 (mg/dL) Final Creatinine 07/18/2024 08:40:46 0.6 0.5-1.0 (mg/dL) Final Glomerular filtration rate/1.73 sq M.predicted [Volume Rate/Area] in Serum, Plasma or Blood by Creatinine-based formula (CKD-EPI) 07/18/2024 08:40:46 >90 >=60 (mL/min) Final eGFR is calculated based on the CKD-EPI 2020 equation. Sodium 07/18/2024 08:40:46 141 135-146 (m mol/L) Final Potassium 07/18/2024 08:40:46 3.7 3.5-5.1 (m mol/L) Final Cl 07/18/2024 08:40:46 103 98-107 (mm ol/L) Final CO2 07/18/2024 08:40:46 27 22-32 (mmo l/L) Final Anion gap 07/18/2024 08:40:46 11 7-15 (mmol /L) Final Glucose 07/18/2024 08:40:46 96 70-120 (mg /dL) Final Albumin 07/18/2024 08:40:46 3.9 3.8-5.0 (g /dL) Final AST (Aspartate aminotransferase) 07/18/2024 08:40:46 12 10-35 (U/L) Final Alk Phos 07/18/2024 08:40:46 89 35-130 (U/ L) Final Bilirubin, Total 07/18/2024 08:40:46 0.5 <=1 .2 (mg/dL) Final Calcium 07/18/2024 08:40:46 9.3 8.4-10.2 ( mg/dL) Final Protein 07/18/2024 08:40:46 6.6 6.0-8.3 (g /dL) Final ALT (Alanine aminotransferase) 07/18/2024 08:40:46 19 10-35 (U/L) Final Performing Location [facility] [address] [place] [address]
--- OUTSIDE RECORDS SUMMARY | 2024-08-11 03:31 | External Medical Summary | Summary of Care ---
Author Name Unknown Organization [facility] Address [address] [facility] [place] [address] Phone [phone] Care Team Providers Care Individual Small Group Instructor Name Role Phone Richard Marshall DO Primary Care Provider + [phone] Reason for Visit * Reason Comments Chemotherapy Mvasi/Taxol/Carbo * Episode Based Medications (Routine) - Authorized Specialty Diagnoses / Procedures Referred By Contac t Referred To Contact Diagnoses Cancer, metastatic to bone (HCC) 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) Encounter for antineoplastic chemotherapy Prevention of chemotherapy-induced neutropenia Procedures CO CARBOPLATIN INJECTION CO FOSAPREPITANT INJECTION CO INJ., ZIRABEV, 10 MG CO PACLITAXEL INJECTION CO INJECTION, UDENYCA 0.5 MG CO INJ MVASI 10 MG CO INJECTION, Nicole Wise MD [address] [place] [address] [place] [address] Phone: tel: fax: Hematology/Oncology Treatment, [address] [address] Phone: tel: fax: Referral ID Status Reason Start Date Expiration Date V isits Requested Visits Authorized [id number] Authorized 05/31/2024 09/24/2024 [id number] Encounter Details Date Type Department Care Team (Latest Contact Info) Description 06/06/2024 10:00 AM EST Hem/Onc Treatment Hematology/Oncolog y Treatment, [address] [address] Shereen, Chair 11 Hem Onc [address] [address] Cancer, metastatic to bone (HCC)*; 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); Encounter for antineoplastic chemotherapy; Prevention of chemotherapy-induced neutropenia Allergies Active Allergy Reactions Criticality Noted Date Comments Iodinated Contrast Media 07/05/2021 "itchy, rash and hives" CT Scan documented as of this encounter (statuses as of 07/04/2024) Medications Vitamin D (Cholecalciferol) 50 MCG (1999 UT) Oral Capsule Take by mouth at bedtime. Active Ferrous Sulfate 325 (65 Fe) MG Oral Tablet (Feosol) Take 1 Tablet by mouth at bedtime. Active Stiolto Respimat 2.5-2.5 MCG/ACT Inhalation Aerosol Solution (Tiotropium [place]-Olodaterol )Indications:COPD, severity to be determined ([facility]) Inhale 2 Puffs by mouth daily. 12 [...] neutropenia Take 1 Tablet by mouth at bedtime for 4 days. On days 1, 2, 3, and 4 of chemo. 4 Tablet 05/11/20 24 024 Discontin ued(Refil l) oxyCODONE HCl ER 40 MG Oral Tablet ER 12 Hour Abuse-Deterrent (OxyCONTIN)Indicat ions: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),Recurrent adenocarcinoma of lung, unspecified laterality (HCC),Pain from bone metastases (HCC),Cancer, metastatic to bone (HCC),Lesion of thoracic vertebra,Drug-philipp sirisha constipation Take 1 Tablet by mouth in the morning and 1 Tablet before bedtime. 60 Tablet 05/12/20 24 024 Discontin ued(Refil l) oxyCODONE-Acetamin ophen 5-325 MG Oral Tablet (Percocet)Indicati ons: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) Take 2 Tablets by mouth every 6 hours as needed for Pain, Moderate. 60 Tablet 05/12/20 24 024 Discontin ued(Refil l) dexAMETHasone 4 MG Oral Tablet (Decadron)Indicati ons: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),Pain from bone metastases (HCC),Cancer, metastatic to bone (HCC),Lesion of thoracic vertebra Take 2 Tablets by mouth daily with breakfast. 60 Tablet 05/17/20 24 024 Discontin ued(Refil l) Hospital, Clinic, or Other Facility Administered Medication Ordered Dose Route Frequency Start Date End Date Status bevaCIZumab (Avastin) inj 1.25 mgIndications:Radiation retinopathy, subsequent encounter 1.25 mg IZ PRN 10/08/2023 10/07/2024 Active ROPivacaine (Naropin) inj 1.5 mgIndications:Radiation retinopathy, subsequent encounter 1.5 mg IJ PRN 10/08/2023 10/07/2024 Active documented as of this encounter (statuses as of 07/04/2024) Active Problems Problem Noted Date Diagnosed Date [...] as of this encounter (statuses as of 07/04/2024) Resolved Problems Problem Noted Date Diagnosed Date Resolved Date COPD, group A, by GOLD 2017 classification 07/07/2022 04/07/2024 Overview: Per COPD GOLD Classification COPD, severity to be determined 07/09/2021 07/10/2022 Overview: Per COPD GOLD Classification documented as of this encounter (statuses as of 07/04/2024) Immunizations Name Administration Dates Next Due Covid-19 [...] 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 Possible barriers to meeting goals: ambulating with IV pole Stability of the patient: Moderately stable - low risk of patient condition declining or worsening Summary regarding today's goals: Met: pt remained free of harm today Patient tolerated treatment well without any acute issues or problems. Patient will return tomorrowfor injection 24 hours post finishing chemo tx. See TE regarding medication refills that are needed. Patient left facility in stable condition and denied any further needs. * Melanie Mendieta RN - 06/06/2024 10:54 AM EST Chair 5 Chemotherapy/Immunotherapy agents: MVASI, CARBOPLATIN, and TAXOL Consent for chemotherapy drug treatment complete, dated, and signed? yes, date - 04/18/24 Treatment lab parameters met? Yes Has treatment weight changed > than 10%? No Treatment preauthorized? Yes VITALS Filed Vitals: Urine protein: N/A Patient education completed for treatment? Yes Blood transfusion consent signed and complete? NA Return appointment scheduled? Yes Patient had provider visit today? Yes - Ok to release order and treat per provider VAD accessed; NSS infusing. Area of erythema/tenderness, possibly fluid-filled noted at lateral aspect of VAD incision. No drainage/warmth noted; skin is CDI. Dr. Vinson. Apodaca needle insertedoutside of erythematic area. Safety and Risk for Injury Patient will [...] Description 07/12/2024 8:45 AM EST Imaging Radiology [facility] [address] [facility] [place] [address] 07/18/2024 8:50 AM EST Laboratory Laboratory [facility] [address] [place] [phone] [facility] [address] [place], [place] [address] 07/18/2024 9:30 AM EST Office Visit Hematology/Oncology Scenery [place] [address] [place] [phone] Nicole Vinson MD [address] [place] [address] [place] [phone] 07/18/2024 10:00 AM EST Hem/Onc Treatment Hematology/Oncology Treatment, [place] [address] [place] [phone] Shereen, Chair 3 Hem Onc [address] [place] [address] 09/06/2024 8:45 AM EST Office Visit Ophthalmology, [facility] [address] [place] [address] Anthony Grey, DO [address] [place] [address] 03/10/2025 10:00 AM EDT Office Visit Sleep Disorders Ctr [facility] [address] [place] [phone] Margie Gutierrez, DO [address] [place] [address] Health Maintenance Due Date Last Done Comments [...] this encounter Medical Devices Implanted Type Area Manual Plate Filler Device Identifier Shelf Expiration Date Model / Serial / Lot Port Implant W8f Poly Cath - [id number] Implanted:Qty : 1 on 04/20/2024 by Nathan Hardwick MD at [facility] Right: Chest CR BARD : PERIPHERAL VASCULAR [id number] 06/25/2025 [id number] / / [id number] documented as of this encounter Visit Diagnoses Diagnosis Cancer, metastatic to bone (HCC)- Primary Secondary malignant neoplasm of bone and bone marrow 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) Encounter for antineoplastic chemotherapy Prevention of chemotherapy-induced neutropenia documented in this encounter Administered Medications Inactive Administered Medications - up to 3 most recent administrations Medication Order MAR Action Action Date Dose Rate Site bevaCIZumab-awwb (Mvasi) 1,100 mg in NSS 100 mL infusion 1,100 mg (rounded from 1,128 mg = 15 mg/kg 75.2 kg Treatment plan Recorded weight), IV Piggyback, ONCE, 1 dose, On Thu06/06/24 at 1230, Administer over 30 Minutes, Flush with NSS only!Indications:Cancer, metastatic to bone (HCC),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),Encounter for antineoplastic chemotherapy,Prevention of chemotherapy-induced neutropenia Start Infusion 06/06/2024 4:07 PM EST 1,100 mg 210 mL/hr CARBOplatin (Paraplatin) 659 mg in D5W 250 mL infusion 659 mg (rounded from 659.4 mg, Target AUC = 6), IV Piggyback, at 510 mL/hr Administer over 30 Minutes, PROTECT FROM LIGHT, ONCE, 1 dose, On Thu06/06/24 at 1230Indications:Cancer, metastatic to bone (HCC),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),Encounter for antineoplastic chemotherapy,Prevention of chemotherapy-induced neutropenia Start Infusion 06/06/2024 3:30 PM EST 659 mg 510 mL/hr diphenhydrAMINE (Benadryl) cap 50 mg 50 mg, Oral, ONCE, On Thu06/06/24 at 1200, For 1 doseIndications:Cancer, metastatic to bone (HCC),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),Encounter for antineoplastic chemotherapy,Prevention of chemotherapy-induced neutropenia Given 06/06/2024 11:05 AM EST 50 mg Famotidine (Pepcid) tab 20 mg 20 mg, Oral, ONCE, On Thu06/06/24 at 1200, For 1 doseIndications:Cancer, metastatic to bone (HCC),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),Encounter for antineoplastic chemotherapy,Prevention of chemotherapy-induced neutropenia Given 06/06/2024 11:05 AM EST 20 mg Fosaprepitant Dimeglumine (Emend) 150 mg, ondansetron (Zofran) 16 mg, dexamethasone sodium phosphate 12 mg in NSS 250 mL Infusion 150 mg, IV Piggyback, ONCE, 1 dose, On Thu06/06/24 at 1200, Administer over 30 Minutes, Infuse over 30 minutes. Give 30 minutes prior to chemotherapy.Indications:C ancer, metastatic to bone (HCC),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),Encounter for antineoplastic chemotherapy,Prevention of chemotherapy-induced neutropenia Start Infusion 06/06/2024 11:49 AM EST 150 mg 538.4 mL/hr hEParin 100 UNIT/ML Lock Flush inj 500 Units 500 Units (5 mL), IV Lock, PRN Other, IV Flush, Starting on Thu06/06/24 at 1048, Until Thu06/06/24 at 2122, For 24 hours, Do not flush if lock, PICC, or central line not in place; IV infusing or unable to flush.Indications:Cancer, metastatic to bone (HCC),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),Encounter for antineoplastic chemotherapy,Prevention of chemotherapy-induced neutropenia Given 06/06/2024 4:40 PM EST 500 Units NSS infusion Intravenous, at 50 mL/hr, PRN, Starting on Thu06/06/24 at 1200, Until Thu06/06/24 at 2122, Maintenance lineIndications:Cancer, metastatic to bone (HCC),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),Encounter for antineoplastic chemotherapy,Prevention of chemotherapy-induced neutropenia Start Infusion 06/06/2024 10:48 AM EST 50 mL/hr PACLitaxel (Taxol) 368 mg in NSS 500 mL infusion 368 mg (200 mg/m2 1.84 m2 Treatment Plan BSA from Recorded weight), IV Piggyback, ONCE, 1 dose, On Thu06/06/24 at 1230, Administer over 180 Minutes, Administer through 0.22 micron low protein binding filter!Indications:Cancer, metastatic to bone (HCC),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),Encounter for antineoplastic chemotherapy,Prevention of chemotherapy-induced neutropenia Start Infusion 06/06/2024 12:30 PM EST 368 mg 170 mL/hr sodium chloride 0.9 % flush central line 10 mL 10 mL, IV Push, PRN Other, IV Flush, Starting on Thu06/06/24 at 1048, Until Thu06/06/24 at 212, For 24 hours, Do not flush if lock, PICC, or central line not in place; IV infusing or unable to flush.Indications:Cancer, metastatic to bone (HCC),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),Encounter for antineoplastic chemotherapy,Prevention of chemotherapy-induced neutropenia Given 06/06/2024 4:40 PM EST 10 mL documented in this encounter Care Teams Individual Small Group Instructor Relationship Specialty Start Date End Date Richard Marshall DO [address] [place] [address] PCP - General Family Medicine 08/26/22 documented as of this encounter
--- OUTSIDE RECORDS SUMMARY | 2024-08-11 03:31 | External Medical Summary | Summary of Care ---
Author Name Unknown Organization [facility] Address [address] [facility] [place] [address] Phone [phone] Care Team Providers Care Sampler Pickup Name Role Phone Richard Marshall DO Primary Care Provider [phone] Reason for Visit * Reason Onset Date Comments MyCode Consent 07/12/2024 Encounter Details Date Type Department Care Team (Late st Contact Info) Description 07/12/2024 Orders Only Outcomes Research Department [address] [place], [place] [id number] Vonda Johnston CHRA MyCode Research Other*[id number]* Allergies Active Allergy Reactions Criticality Noted Date Comments Iodinated Contrast Media 07/05/2021 "itchy, rash and hives" CT Scan documented as of this encounter (statuses as of 07/12/2024) Medications Vitamin D (Cholecalciferol) 50 MCG (1999) Oral Capsule Take by mouth at bedtime. Active Ferrous Sulfate 325 (65 Fe) MG Oral Tablet (Feosol) Take 1 Tablet by mouth at bedtime. Active Stiolto Respimat 2.5-2.5 MCG/ACT Inhalation Aerosol Solution (Tiotropium [place]-Olodaterol )Indications:COPD, severity to be determined (HCC) Inhale [...] needed for Pain, Moderate. 60 Tablet 07/05/20 Active Allopurinol 100 MG Oral Tablet (Zyloprim)Indicati ons: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) Take 1 Tablet by mouth in the morning. 90 Tablet 1 07/05/20 Active Hospital, Clinic, or Other Facility Administered Medication Ordered Dose Route Frequency Start Date End Date Status bevaCIZumab (Avastin) inj 1.25 mgIndications:Radiation retinopathy, subsequent encounter 1.25 mg IZ PRN 10/08/2023 10/07/2024 Active ROPivacaine (Naropin) inj 1.5 mgIndications:Radiation retinopathy, subsequent encounter 1.5 mg IJ PRN 10/08/2023 10/07/2024 Active documented as of this encounter (statuses as of 07/12/2024) Active Problems Problem Noted Date Diagnosed Date [...] as of this encounter (statuses as of 07/12/2024) Resolved Problems Problem Noted Date Diagnosed Date Resolved Date COPD, group A, by GOLD 2017 classification 07/07/2022 04/07/2024 Overview: Per COPD GOLD Classification COPD, severity to be determined 07/09/2021 07/10/2022 Overview: Per COPD GOLD Classification documented as of this encounter (statuses as of 07/12/2024) Immunizations Name Administration Dates Next Due Covid-19 [...] 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 documented in this encounter Plan of Treatment Upcoming Encounters Date Type Department Care Team (Late st Contact Info) Description 07/18/2024 8:50 AM EST Laboratory Laboratory [facility] [address] [facility] [place] [phone] [facility] [address] [facility] [place] [address] 07/18/2024 9:30 AM EST Office Visit Hematology/Oncology [facility] [place] [address] [facility] [place] [place] [phone] Nicole Vinson MD [address] [place] [address] [place] [phone] 07/18/2024 10:00 AM EST Hem/Onc Treatment Hematology/Oncology Treatment, [place] [address] [place] [phone] Shereen, Chair 3 Hem Onc [facility] [address] [place] [address] 09/06/2024 8:45 AM EST Office Visit Ophthalmology, [facility] [address] [place] [address] Anthony Grey, DO [address] [place] [address] 03/10/2025 10:00 AM EDT Office Visit Sleep Disorders Ctr [facility] [address] [place] [phone] Margie Gutierrez, [address] [place] [address] Scheduled Orders Name Type Priority Associated Diagnoses Orde r Schedule MYCODE INITIAL ADULT Lab Routine MyCode Research Other*[id number] Expected: 07/12/2024 (Approximate), Expires: 08/01/2025 Health Maintenance Due Date Last Done Comments [...] this encounter Medical Devices Implanted Type Area Stage Driver Device Identifier Shelf Expiration Date Model / Serial / Lot Port Implant W8f Poly Cath - [id number] Implanted:Qty : 1 on 04/20/2024 by Nathan Hardwick MD at [facility] Right: Chest CR BARD : PERIPHERAL VASCULAR [id number] 06/25/2025 [id number] / / [id number] documented as of this encounter Visit Diagnoses Diagnosis MyCode Research Other*[id number]- Primary documented in this encounter Care Teams Sampler Pickup Relationship Specialty Start Date End Date Richard Marshall DO [address] [place] [address] PCP - General Family Medicine 08/26/22 documented as of this encounter
--- OUTSIDE RECORDS SUMMARY | 2024-08-11 03:31 | External Medical Summary | Summary of Care ---
Author Name Unknown Organization [facility] Address [address] [facility] [place] [address] Phone [phone] Care Team Providers Care Rn Diabetes Name Role Phone Richard Marshall DO Primary Care Provider [phone] Encounter Details Date Type Department Care Team (Late st Contact Info) Description 07/18/2024 Orders Only Hematology/Oncology [facility] Shereen [place] [address] [facility] [address] Nicole Vinson [facility] [address] [facility] [place] [phone] Allergies Active Allergy Reactions Criticality Noted Date [...] Respimat 2.5-2.5 MCG/ACT Inhalation Aerosol Solution (Tiotropium [place]-Olodaterol )Indications:COPD, severity to be determined (HCC) Inhale 2 Puffs by mouth daily. 12 g 3 07/24/20 21 Active Premarin 0.625 MG/GM Vaginal Cream (Estrogens, Conjugated) Administer into the vagina at bedtime . As directed. 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 on f ile documented as of this encounter Plan of Treatment Upcoming Encounters Date Type Department Care Team (Late st Contact Info) Description 09/06/2024 8:45 AM EST Office Visit Ophthalmology, [facility] [address] [place] [address] Anthony Grey, DO [address] [place] [address] 03/10/2025 10:00 AM EDT Office Visit Sleep Disorders Ctr [facility] [address] [place] [phone] Margie Gutierrez, DO [address] [place] [address] Health Maintenance Due Date Last Done Comments [...] this encounter Medical Devices Implanted Type Area Retail Financial Analyst Device Identifier Shelf Expiration Date Model / Serial / Lot Port Implant W8f Poly Cath - [id number] Implanted:Qty : 1 on 04/20/2024 by Nathan Hardwick MD at [facility] Right: Chest CR BARD : PERIPHERAL VASCULAR [id number] 06/25/2025 [id number] / / [id number] documented as of this encounter Care Teams Rn Diabetes Relationship Specialty Start Date End Date Richard Marshall DO [address] [place] [address] PCP - General Family Medicine 08/26/22 documented as of this encounter
--- OUTSIDE RECORDS SUMMARY | 2024-08-11 03:31 | External Medical Summary ---
Author Name Unknown Address Unknown Organization K01:[facility] [place] [address] [place] [address] Laboratory Report Ordering Provider Test Date Status EDD ROCHA 07/18/2024 15:41:48 Final Observation Date Value Abnormality Reference (Units ) Status Troponin T 07/18/2024 15:41:48 <6 <=14 (ng/ L) Final Performing Location [facility] - [address] [place] [address]
--- OUTSIDE RECORDS SUMMARY | 2024-08-11 03:31 | External Medical Summary | Summary of Care ---
Author Name Unknown Organization [facility] Address [address] [facility] [address] Phone [phone] Care Team Providers Care Check Totaler Name Role Phone Richard Marshall DO Primary Care Provider [phone] Reason for Visit * Reason Comments Follow Up Pain follow up Encounter Details Date Type Department Care Team (Late st Contact Info) Description 07/07/2024 3:00 PM EST Office Visit Hematology/Oncology [facility] [place] [address] [facility] [address] Nicole Vinson MD [address] [facility] [place] [address] 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 Active Ferrous Sulfate 325 (65 Fe) MG Oral Tablet (Feosol) Take 1 Tablet by mouth at bedtime. Active Stiolto Respimat 2.5-2.5 MCG/ACT Inhalation Aerosol Solution (Tiotropium [place]-Olodaterol )Indications:COPD, severity to be determined ([facility]) Inhale 2 Puffs by [...] and 4 of chemo. 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 on file Not on file Not on f ile documented as of this encounter Last Filed Vital Signs Vital Sign Reading Time Taken Comments Blood Pressure 122/80 07/07/2024 3:12 PM EST Pulse 100 07/07/2024 3:12 PM EST Temperature 36.9 C (98.4 F) 07/07/2024 3:12 PM ES T Respiratory Rate - - Oxygen Saturation 94% 07/07/2024 3:12 PM EST Inhaled Oxygen Concentration - - Weight 82.4 kg (181 lb 9.6 oz) 07/07/2024 3:12 P M EST Height - - Body Mass Index 31.17 04/20/2024 10:49 AM EDT documented in this encounter Progress Notes * Nicole Vinsno MD - 07/07/2024 3:20 PM EST .Date of visit: 07/07/2024 Subjective Lanny Andrews is a 59 year old female presents for follow up HPI: 07/04/2024: Called the patient to discuss her [...] particularly after weight-bearing for a long time. PLAN OF CARE DISCUSSED WITH PATIENT ON 07/05/2024 : Continue OxyContin 40 mg BID Increase [...] p.o. daily due to symptoms c/w gout. 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 Postsurgical changes noted [...] or radiation therapy. She was seen by Dr. Ne burger on 03/31/2024. [facility], pt wants a closer ([facility]). GI revaluation for lower para esophageal [...] wedge resection 01/03/2020: Video-assisted thoracoscopic wedge resection 2002: b/l breast enhancement with implants 01/27/2024: EGD [...] p.o. daily due to symptoms c/w gout. Review of Systems Constitutional: Negative. HENT: Negative. [...] a significant past medical history of recurrent xku-uvuko-shnb lung cancer (adenocarcinoma) that has recurrent several times (>3 times per pt- received treatment in [facility]), status post multiple surgical interventions between 2010, [...] mg po QID x 10 days prescribed. PLAN OF CARE DISCUSSED WITH PATIENT ON 06/06/2024 : Follow Up: Return in about 3 weeks (around 06/27/2024) for Chemo follow up. Cycle 3 chemo on 06/27/2024 Cycle 4 chemo on 07/18/2024 Change PET scan schedule to be done on 07/15/2024. Decrease dexamethasone daily dose from 8 mg to 4 mg daily. Keflex 500 mg po QID x 10 days for cellulitis PMH, current medications, allergies, labs were reviewed with the patient. 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 | For: PET scan follow up Nicole Vinson MD documented in this encounter Nursing Notes * Adrainna Soto, MAGDALENO ANDREWS - 07/07/2024 3:12 PM EST Patient identifed by name and birthdate [...] it for you? ALREADY ACTIVE Filed Vitals: 07/07/24 1512 BP: 122/80 Pulse: 100 Temp: 36.9 C (98.4 F) TempSrc: Tympanic SpO2: 94% Weight: 82.4 kg (181 lb 9.6 oz) Patient was instructed to not get [...] Description 07/12/2024 8:45 AM EST Imaging Radiology [address] 132 [facility] [place] [address] 07/18/2024 8:50 AM EST Laboratory Laboratory [facility] [address] [place] [phone] [place], Lab Scenery 200 [facility] [place] [address] 07/18/2024 9:30 AM EST Office Visit Hematology/Oncology [facility] [place] [address] [place] [phone] Nicole Vinson MD [address] [place] [address] [place] [address] 07/18/2024 10:00 AM EST Hem/Onc Treatment Hematology/Oncology Treatment, [place] [address] [place] [phone] Shereen, Chair 3 Hem Onc Scenery [address] [place] [address] 09/06/2024 8:45 AM EST Office Visit Ophthalmology, [facility] 132 [facility] [place] [address] Anthony Grey, [address] [place] [address] 03/10/2025 10:00 AM EDT Office Visit Sleep Disorders Ctr [facility] [address] [place] [phone] Margie Gutierrez DO [address] [place] [address] Health Maintenance Due Date Last Done Comments [...] this encounter Medical Devices Implanted Type Area Director E Learning Device Identifier Shelf Expiration Date Model / Serial / Lot Port Implant W8f Poly Cath - [id number] Implanted:Qty : 1 on 04/20/2024 by Nathan Hardwick MD at OR [facility] Right: Chest CR BARD : PERIPHERAL VASCULAR [id number] 06/25/2025 [id number] / / [id number] documented as of this encounter Visit Diagnoses Diagnosis 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
--- OUTSIDE RECORDS SUMMARY | 2024-08-11 03:31 | External Medical Summary ---
Author Name Unknown Address Unknown Organization K09:[facility] [place] [address] Laboratory Report Ordering Provider Test Date Status JOSEFINASUZANNEOBIJUAN MANUEL 07/18/2024 08:40:46 Final Observation Date Value Abnormality Reference (Units ) Status Nucleated erythrocytes/100 leukocytes [Ratio] in Blood by Automated count 07/18/2024 08:40:46 Final Variant lymphocytes [Presence] in Blood by Light microscopy 07/18/2024 08:40:46 Present Abnormal None Seen Final Performing Location [facility] [place] [address]
--- OUTSIDE RECORDS SUMMARY | 2024-08-11 03:31 | External Medical Summary ---
Author Name Unknown Address Unknown Organization K01:[facility] - [address] [place] [address] Laboratory Report Ordering Provider Test Date Status JOSEFINASUZANNEOBIJUAN MANUEL 07/18/2024 15:41:48 Final Exclude Heart Failure: <300 pg/mL
Diagnose Heart Failure:
Age <50 yr: >450 pg/mL
50-75 yr: >900 pg/mL
>75 yr: >1800 pg/mL
GFR is 30-59 mL/min: >1200 pg/mL or Age- adjusted values
GFR <30 mL/min: do not use, not reliable

Prognostic threshold: 1000 pg/mL Observation Date Value Abnormality Reference (Units ) Status BNP, Pro-hormone 07/18/2024 15:41:48 50 <30 0 (pg/mL) Final Performing Location [facility] - [address] [place] [address]
--- OUTSIDE RECORDS SUMMARY | 2024-08-11 03:31 | External Medical Summary | Summary of Care ---
Author Name Unknown Organization [facility] Address [address] [place] [facility] [place] [address] Phone [phone] Care Team Providers Care Billet Recorder Name Role Phone Richard Marshall DO Primary Care Provider + [phone] Reason for Visit * Reason Comments Outpatient Testing Encounter Details Date Type Department Care Team (Late st Contact Info) Description 07/18/2024 8:50 AM EST Laboratory Laboratory Scenery 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 file Not on file Not on f ile documented as of this encounter Plan of Treatment Upcoming Encounters Date Type Department Care Team (Late st Contact Info) Description 07/18/2024 9:30 AM EST Office Visit Hematology/Oncolog y Scenery [place] [address] [place] [phone] Nicole Vinson MD [address] [place] [address] [place] [phone] Date of visit: 07/18/2024 07/18/2024 10:00 AM EST Hem/Onc Treatment Hematology/Oncolog y Treatment, [place] [address] [place] [phone] Shereen, Chair 3 Hem Onc Scenery [address] [place] [address] Arrived 09/06/2024 8:45 AM EST [facility] [place] [address] [place] [address] Anthony Grey, DO [address] [place] [address] 03/10/2025 10:00 AM EDT Office Visit Sleep Disorders Ctr [place]isha [place] [address] [place] [phone] Margie Gutierrez, DO [address] [place] [address] Pending Results Name Type Priority Associated Diagnoses Date /Time CBC WITH WBC DIFFERENTIAL Lab STAT 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) Cancer, metastatic to bone (HCC) 07/18/2024 8:40 AM EST COMPREHENSIVE METABOLIC PANEL Lab STAT 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) Cancer, metastatic to bone (HCC) 07/18/2024 8:40 AM EST CBC Lab STAT 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) Cancer, metastatic to bone (HCC) 07/18/2024 8:40 AM EST DIFFERENTIAL, AUTOMATED Lab STAT Lung cancer metastatic to bone [...] this encounter Medical Devices Implanted Type Area Ornithology Teacher Device Identifier Shelf Expiration Date Model / Serial / Lot Port Implant W8f Poly Cath - [id number] Implanted:Qty : 1 on 04/20/2024 by Nathan Hardwick MD at OR [facility] Right: Chest CR BARD : PERIPHERAL VASCULAR [id number] 06/25/2025 [id number] / / [id number] documented as of this encounter Visit Diagnoses Diagnosis 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
--- OUTSIDE RECORDS SUMMARY | 2024-08-11 03:32 | External Medical Summary | Summary of Care ---
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) Encounter for antineoplastic chemotherapy Prevention of chemotherapy-induced neutropenia Procedures ID CARBOPLATIN INJECTION ID FOSAPREPITANT INJECTION ID INJ., ZIRABEV, 10 MG ID PACLITAXEL INJECTION ID INJECTION, UDENYCA 0.5 MG ID INJ MVASI 10 MG ID INJECTION, Nicole Wise MD [address] [place] [address] [place] [address] Phone: tel: fax: Hematology/Oncology Treatment, [address] [address] Phone: tel: fax: Referral ID Status Reason Start Date Expiration Date V isits Requested Visits Authorized [id number] Authorized 05/31/2024 09/24/2024 [id number] Encounter Details Date Type Department Care Team (Latest Contact Info) Description 06/06/2024 10:00 AM EST Hem/Onc Treatment Hematology/Oncolog y Treatment, [address] [address] Shereen, Chair 11 Hem Onc [address] [address] Cancer, metastatic to bone (HCC)*; Lung cancer [...] Respimat 2.5-2.5 MCG/ACT Inhalation Aerosol Solution (Tiotropium [place]-Olodaterol )Indications:COPD, severity to be determined ([facility]) Inhale 2 Puffs by mouth [...] 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 Not on file [...] Description 07/12/2024 8:45 AM EST Imaging Radiology [facility] 1st [facility] 132 [facility] [place] [address] 07/18/2024 8:50 AM EST Laboratory [facility] [address] [place] [phone] Shereen Lab Scenery [address] [place], [place] [address] 07/18/2024 9:30 AM EST Office Visit Hematology/Oncology Scenery [place] [address] [place] [phone] Nicole Vinson MD [address] [place] [address] [place] [phone] 07/18/2024 10:00 AM EST Hem/Onc Treatment Hematology/Oncology Treatment, [place] [address] [place] [phone] Shereen, Chair 3 Hem Onc Scenery [address] [place] [address] 09/06/2024 8:45 AM EST Office Visit Ophthalmology, [facility] [address] [place] [address] Anthony Grey, DO [address] [place] [address] 03/10/2025 10:00 AM EDT Office Visit Sleep Disorders Ctr [facility] [address] [place] [phone] Margie Gutierrez, DO [address] [place] [address] Health Maintenance Due Date Last Done Comments [...] this encounter Medical Devices Implanted Type Area Slasher Tender Helper Device Identifier Shelf Expiration Date Model / Serial / Lot Port Implant W8f Poly Cath - [id number] Implanted:Qty : 1 on 04/20/2024 by Nathan Hardwick MD at [facility] Right: Chest CR BARD : PERIPHERAL VASCULAR [id number] 06/25/2025 [id number] / / [id number] documented as of this encounter Visit Diagnoses [...] mL documented in this encounter Care Teams Communications Strategist Relationship Specialty Start Date End Date Richard Marshall DO [address] [place] [address] PCP - General Family Medicine 08/26/22 documented as of this encounter
--- OUTSIDE RECORDS SUMMARY | 2024-08-11 03:32 | External Medical Summary | Summary of Care ---
Author Name Unknown Organization [facility] Address [address] [facility] [place] [address] Phone [phone] Care Team Providers Care Meter/Relay Technician Name Role Phone Richard Marshall DO Primary Care Provider + [phone] Reason for Visit * Reason Comments Chemotherapy [...] 10 MG FL INJECTION, Nicole Wise MD [address] [place] [address] [place] [address] Phone: tel: fax: Hematology/Oncology Treatment, [address] [address] Phone: tel: fax: Referral ID Status Reason Start Date Expiration Date V isits Requested Visits Authorized [id number] Authorized 05/31/2024 09/24/2024 [id number] Encounter Details Date Type Department Care Team (Latest Contact Info) Description 06/06/2024 10:00 AM EST Hem/Onc Treatment Hematology/Oncolog y Treatment, [address] [address] Shereen, Chair 11 Hem Onc [address] [address] Cancer, metastatic to bone (HCC)*; Lung cancer [...] Respimat 2.5-2.5 MCG/ACT Inhalation Aerosol Solution (Tiotropium [place]-Olodaterol )Indications:COPD, severity to be determined ([facility]) Inhale 2 Puffs by mouth daily. 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 Not on file [...] Description 07/12/2024 8:45 AM EST Imaging Radiology [facility] 1st [facility] 132 [facility] [place] [address] 07/18/2024 8:50 AM EST Laboratory Laboratory [facility] [address] [place] [phone] Shereen Lab Scenery [address] [place], [place] [address] 07/18/2024 9:30 AM EST Office Visit Hematology/Oncology Scenery [place] [address] [place] [phone] Nicole Vinson MD [address] [place] [address] [place] [phone] 07/18/2024 10:00 AM EST Hem/Onc Treatment Hematology/Oncology Treatment, [place] [address] [place] [phone] Shereen, Chair 3 Hem Onc Scenery [address] [place] [address] 09/06/2024 8:45 AM EST Office Visit Ophthalmology, [facility] [address] [place] [address] Anthony Grey, DO [address] [place] [address] 03/10/2025 10:00 AM EDT Office Visit Sleep Disorders Ctr [facility] [address] [place] [phone] Margie Gutierrez, DO [address] [place] [address] Health Maintenance Due Date Last Done Comments [...] this encounter Medical Devices Implanted Type Area Repair Armature Winder Device Identifier Shelf Expiration Date Model / Serial / Lot Port Implant W8f Poly Cath - [id number] Implanted:Qty : 1 on 04/20/2024 by Nathan Hardwick MD at [facility] Right: Chest CR BARD : PERIPHERAL VASCULAR [id number] 06/25/2025 [id number] / / [id number] documented as of this encounter Visit Diagnoses [...] mL documented in this encounter Care Teams Meter/Relay Technician Relationship Specialty Start Date End Date Richard Marshall DO [address] [place] [address] PCP - General Family Medicine 08/26/22 documented as of this encounter
--- OUTSIDE RECORDS SUMMARY | 2024-08-11 03:32 | External Medical Summary | Summary of Care ---
Author Name Unknown Organization [facility] Address [address] [facility] [place] [address] Phone [phone] Care Team Providers Care Installment Dealer Name Role Phone Richard Marshall DO Primary Care Provider + [phone] Reason for Visit * Reason Comments Chemotherapy C3/D1 - Taxol, Carbo , Mvasi * Episode Based Medications (Routine) - Authorized Specialty Diagnoses / Procedures Referred By Contac t Referred To Contact Diagnoses Cancer, metastatic to bone (HCC) 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) Encounter for antineoplastic chemotherapy Prevention of chemotherapy-induced neutropenia Procedures MS CARBOPLATIN INJECTION MS FOSAPREPITANT INJECTION MS INJ., ZIRABEV, 10 MG MS PACLITAXEL INJECTION MS INJECTION, UDENYCA 0.5 MG MS INJ MVASI 10 MG MS INJECTION, Nicole Wise MD [address] [place] [address] Phone: tel: fax: Hematology/Oncology Treatment, [address] [address] Phone: tel: fax: Referral ID Status Reason Start Date Expiration Date V isits Requested Visits Authorized [id number] Authorized 05/31/2024 09/24/2024 [id number] Encounter Details Date Type Department Care Team (Latest Contact Info) Description 06/27/2024 11:15 AM EST Hem/Onc Treatment Hematology/Oncolog y Treatment, [address] [phone] She[place], Chair 4 Hem Onc [address] [address] Cancer, metastatic to bone (HCC)*; 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); Encounter for antineoplastic chemotherapy; Prevention of chemotherapy-induced neutropenia Allergies Active Allergy Reactions Criticality Noted Date Comments Iodinated Contrast Media 07/05/2021 "itchy, rash and hives" CT Scan documented as of this encounter (statuses as of 06/27/2024) Medications Vitamin D (Cholecalciferol) 50 MCG (1999 UT) Oral Capsule Take by mouth at bedtime. Active Ferrous Sulfate 325 (65 Fe) MG Oral Tablet (Feosol) Take 1 Tablet by mouth at bedtime. Active Stiolto Respimat 2.5-2.5 MCG/ACT Inhalation Aerosol Solution (Tiotropium Clyde-Olodaterol )Indications:COPD, severity to be determined ([facility]) Inhale 2 Puffs by mouth daily. [...] with breakfast. 60 Tablet 06/16/20 24 Active Hospital, Clinic, or Other Facility Administered Medication Ordered Dose Route Frequency Start Date End Date Status bevaCIZumab (Avastin) inj 1.25 mgIndications:Radiation retinopathy, subsequent encounter 1.25 mg IZ PRN 10/08/2023 10/07/2024 Active ROPivacaine (Naropin) inj 1.5 mgIndications:Radiation retinopathy, subsequent encounter 1.5 mg IJ PRN 10/08/2023 10/07/2024 Active documented as of this encounter (statuses as of 06/27/2024) Active Problems Problem Noted Date Diagnosed Date [...] as of this encounter (statuses as of 06/27/2024) Resolved Problems Problem Noted Date Diagnosed Date Resolved Date COPD, group A, by GOLD 2017 classification 07/07/2022 04/07/2024 Overview: Per COPD GOLD Classification COPD, severity to be determined 07/09/2021 07/10/2022 Overview: Per COPD GOLD Classification documented as of this encounter (statuses as of 06/27/2024) Immunizations Name Administration Dates Next Due Covid-19 [...] 18 years and over) Not on file 3 Are you (or your family) jamel eless [...] 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 Possible barriers to meeting goals: ambulating with IV pole, PO Benadryl before treatment Stability of the patient: Moderately stable - low risk of patient condition declining or worsening Summary regarding today's goals: Met: pt remained free of harm today Patient tolerated treatment well without any acute issues or problems. Patient will return tomorrowfor Fulphila injection at 4:45 pm. Patient left facility in stable condition and denied any furtherneeds. * Alida Titus RN - 06/27/2024 4:00 PM EST Chair 11. Patient here today with friend and . Patient saw Dr. Fuller today -- see OV note for details. Port accessed without difficulty. Small scab slightly above port site where she cut a stitch out before - overall healing well and ptstates it looks better than it did before. Will CTM at this time, port itself is WNL and no rednessnoted, no tenderness or warmth. Patient is due for Zometa today - Calcium 9.3 Phosphorus 3.1 Patient does not report any jaw pain but does report in the last few weeks, she does have a broken molar on back L side of mouth, seems molar has chipped off and a chunk of the tooth is now missing. Pt also reports she has a filling that fell off the back of her front tooth and that also recently fell out. She states she had a dentist appt scheduled about 2 weeks ago but was not feeling well enough to go - cancelled appt but has not had one rescheduled yet. RN encouraged patient to schedule dentist appt for these problems. Patient also reports she eats a lot of hard foods and (hard candy, pretzels, etc.) Patient also states her tooth chipped off when she was chewing a on a hard lifesaver. RN relayed this info to Dr. Fuller - per Dr. Fuller - okay to give Zometa again and have patient still f/u with a dentist and her PET scan will be 07/12, will see what scan looks like and decide of future tx options at this point. Patient is currently not taking any Calcium supplement - RN educated patient to start taking [id number] mg Calcium daily along with 800-1000 units Vitamin D daily. Patient communicated understanding and will buy some before going home today. Chemotherapy/Immunotherapy agents: MVASI, CARBOPLATIN, and TAXOL Consent for chemotherapy drug treatment complete, dated, and signed? yes, date - 04/18/2024 Treatment lab parameters met? Yes Has treatment weight changed > than 10%? No Treatment preauthorized? Yes VITALS There were no vitals filed for this visit. BP Readings from Last 2 Encounters: 06/27/24 137/81 06/06/24 114/74 Pulse Readings from Last 2 Encounters: 06/27/24 86 06/06/24 77 Resp Readings from Last 2 Encounters: 05/16/24 16 04/20/24 16 SpO2 Readings from Last 2 Encounters: 06/27/24 90% 06/06/24 95% Temp Readings from Last 2 Encounters: 06/27/24 36.8 C (98.3 F) (Tympanic) 06/06/24 37 C (98.6 F) (Tympanic) Urine protein: NEGATIVE Patient education completed for treatment? Yes Blood [...] Care Team (Late st Contact Info) Description 06/28/2024 8:30 AM EST Office Visit Ophthalmology, [facility] [address] [place] [address] Anthony Grey, [address] [facility] [place] [id number] 06/28/2024 4:45 PM EST Immunization/Injecti on Hematology/Oncology Treatment, [place] [address] [place] [phone] She[place], Chair 10 Hem Onc Scenery [address] [place] [address] 07/12/2024 8:45 AM EST Imaging Radiology [facility] [facility] [address] [place] [address] 07/18/2024 8:50 AM EST Laboratory [facility] [place] [address] [place] [phone] [place], Lab Scenery [address] [facility] [place] [address] 07/18/2024 9:30 AM EST Office Visit Hematology/Oncology [facility] [place] [address] [place] [phone] Nicole Vinson MD [address] [place] [address] [place] [phone] 07/18/2024 10:00 AM EST [facility] [address] [place] [phone] [place], Chair 3 Hem Onc Scenery [address] [place] [address] 03/10/2025 10:00 AM EDT Office Visit Sleep Disorders Ctr [facility] [place] [address] [place] [phone] Margie Gutierrez DO [address] [place] [id number] Health Maintenance Due Date Last Done Comments [...] this encounter Medical Devices Implanted Type Area Equine Breeder Device Identifier Shelf Expiration Date Model / Serial / Lot Port Implant W8f Poly Cath - [id number] Implanted:Qty : 1 on 04/20/2024 by Nathan Hardwick MD at [facility] Right: Chest CR BARD : PERIPHERAL VASCULAR [id number] 06/25/2025 [id number] / / [id number] documented as of this encounter Visit Diagnoses [...] ONCE PRN Other, Hypersensitivity Reaction, Starting on 06/27/24 at 1204, Until Thu06/28/24 at 1203, For 24 hoursIndications:Cancer, metastatic to bone (HCC),Lung cancer metastatic to bone (HCC),Encounter for antineoplastic chemotherapy,Prevention of chemotherapy-induced neutropenia diphenhydrAMINE (Benadryl) inj 50 mg 50 mg, IV Push, ONCE PRN Other, Hypersensitivity Reaction, Starting on Thu06/27/24 at 1230, Until Thu06/28/24 at 1229, For 24 hoursIndications:Lung cancer metastatic to bone (HCC) EPINEPHrine 1 MG/ML inj 0.3 mg 0.3 mg, Intramuscular, ONCE PRN Other, Hypersensitivity Reaction or Anaphylaxis, Starting on Thu06/27/24 at 1204, Until Thu06/28/24 at 1203, For 24 hoursIndications:Cancer, metastatic to bone (HCC),Lung cancer metastatic to bone (HCC),Encounter for antineoplastic chemotherapy,Prevention of chemotherapy-induced neutropenia EPINEPHrine 1 MG/ML inj 0.3 mg 0.3 mg, Intramuscular, ONCE PRN Other, Hypersensitivity Reaction or Anaphylaxis, Starting on Thu06/27/24 at 1230, Until Thu06/28/24 at 1229, For 24 hoursIndications:Lung cancer metastatic to bone (HCC) hEParin 100 UNIT/ML Lock Flush inj 500 Units 500 Units (5 mL), IV Lock, PRN Other, IV Flush, Starting on Thu06/27/24 at 1204, Until Thu06/28/24 at 1203, For 24 hours, Do not flush if lock, PICC, or central line not in place; IV infusing or unable to flush.Indications:Cancer, metastatic to bone (HCC),Lung cancer metastatic to bone (HCC),Encounter for antineoplastic chemotherapy,Prevention of chemotherapy-induced neutropenia hEParin 100 UNIT/ML Lock Flush inj 500 Units 500 Units (5 mL), IV Lock, PRN Other, IV Flush, Starting on Thu06/27/24 at 1230, Until Thu06/28/24 at 1229, For 24 hours, Do not flush if lock, PICC, or central line not in place; IV infusing or unable to flush.Indications:Lung cancer metastatic to bone (HCC) Given 06/27/2024 5:42 PM EST 500 Units Hydrocortisone Sod Suc (PF) (Solu-Cortef) inj 100 mg 100 mg, IV Push, ONCE PRN Other, Hypersensitivity Reaction, Starting on Thu06/27/24 at 1204, Until Thu06/28/24 at 1203, For 24 hoursIndications:Cancer, metastatic to bone (HCC),Lung cancer metastatic to bone (HCC),Encounter for antineoplastic chemotherapy,Prevention of chemotherapy-induced neutropenia Hydrocortisone Sod Suc (PF) (Solu-Cortef) inj 100 mg 100 mg, IV Push, ONCE PRN Other, Hypersensitivity Reaction, Starting on Thu06/27/24 at 1230, Until Thu06/28/24 at 1229, For 24 hoursIndications:Lung cancer metastatic to bone (HCC) LORAzepam (Ativan) tab 0.5 mg 0.5 mg, Oral, ONCE PRN Anxiety, Nausea, Starting on Thu06/27/24 at 1315, Until DiscontinuedIndications:Canc er, metastatic to bone (HCC),Lung cancer metastatic to bone (HCC),Encounter for antineoplastic chemotherapy,Prevention of chemotherapy-induced neutropenia NSS infusion Intravenous, at 50 mL/hr, PRN, Starting on Thu06/27/24 at 1315, Until Discontinued, Maintenance lineIndications:Cancer, metastatic to bone (HCC),Lung cancer metastatic to bone (HCC),Encounter for antineoplastic chemotherapy,Prevention of chemotherapy-induced neutropenia Start Infusion 06/27/2024 12:15 PM EST 50 mL/hr NSS infusion 500 mL, Intravenous, at 50 mL/hr, CONTINUOUS, Starting on Thu06/27/24 at 1345, Until Thu06/27/24 at 2344Indications:Lung cancer metastatic to bone (HCC) oxygen GAS Inhalation, OXYGEN, First dose on Thu06/27/24 at 1600, Until Discontinued, Device/Managed by: Low Flow Device, [...] oxygen GAS Inhalation, OXYGEN, First dose on Thu06/27/24 at 1600, Until Discontinued, Device/Managed by: Low Flow Device, [...] Push, PRN Other, IV Flush, Starting on Thu06/27/24 at 1204, Until Thu06/28/24 at 1203, For 24 hours, Do not flush if lock, PICC, or central line not in place; IV infusing or unable to flush.Indications:Cancer, metastatic to bone (HCC),Lung cancer metastatic to bone (HCC),Encounter for antineoplastic chemotherapy,Prevention of chemotherapy-induced neutropenia sodium chloride 0.9 % flush central line 10 mL 10 mL, IV Push, PRN Other, IV Flush, Starting on Thu06/27/24 at 1230, Until Thu06/28/24 at 1229, For 24 hours, Do not flush if lock, PICC, or central line not in place; IV infusing or unable to flush.Indications:Lung cancer metastatic to bone (HCC) Given 06/27/2024 5:42 PM EST 10 mL Inactive Administered Medications - up to 3 most recent administrations Medication Order MAR Action Action Date Dose Rate Site bevaCIZumab-awwb (Mvasi) 1,100 mg in NSS 100 mL infusion 1,100 mg (rounded from 1,128 mg = 15 mg/kg 75.2 kg Treatment plan Recorded weight), IV Piggyback, ONCE, 1 dose, On Thu06/27/24 at 1345, Administer over 30 Minutes, Flush with NSS only!Indications:Cancer, metastatic to bone (HCC),Lung cancer metastatic to bone (HCC),Encounter for antineoplastic chemotherapy,Prevention of chemotherapy-induced neutropenia Start Infusion 06/27/2024 5:08 PM EST 1,100 mg 210 mL/hr CARBOplatin (Paraplatin) 659 mg in D5W 250 mL infusion 659 mg (rounded from 659.4 mg, Target AUC = 6), IV Piggyback, at 510 mL/hr Administer over 30 Minutes, PROTECT FROM LIGHT, ONCE, 1 dose, On Thu06/27/24 at 1345Indications:Cancer, metastatic to bone (HCC),Lung cancer metastatic to bone (HCC),Encounter for antineoplastic chemotherapy,Prevention of chemotherapy-induced neutropenia Start Infusion 06/27/2024 4:34 PM EST 659 mg 510 mL/hr diphenhydrAMINE (Benadryl) cap 50 mg 50 mg, Oral, ONCE, On Thu06/27/24 at 1315, For 1 doseIndications:Cancer, metastatic to bone (HCC),Lung cancer metastatic to bone (HCC),Encounter for antineoplastic chemotherapy,Prevention of chemotherapy-induced neutropenia Given 06/27/2024 12:19 PM EST 50 mg Famotidine (Pepcid) tab 20 mg 20 mg, Oral, ONCE, On Thu06/27/24 at 1315, For 1 doseIndications:Cancer, metastatic to bone (HCC),Lung cancer metastatic to bone (HCC),Encounter for antineoplastic chemotherapy,Prevention of chemotherapy-induced neutropenia Given 06/27/2024 12:19 PM EST 20 mg Fosaprepitant Dimeglumine (Emend) 150 mg, ondansetron (Zofran) 16 mg, dexamethasone sodium phosphate 12 mg in NSS 250 mL Infusion 150 mg, IV Piggyback, ONCE, 1 dose, On Thu06/27/24 at 1315, Administer over 30 Minutes, Infuse over 30 minutes. Give 30 minutes prior to chemotherapy.Indications:C ancer, metastatic to bone (HCC),Lung cancer metastatic to bone (HCC),Encounter for antineoplastic chemotherapy,Prevention of chemotherapy-induced neutropenia Start Infusion 06/27/2024 12:16 PM EST 150 mg 538.4 mL/hr PACLitaxel (Taxol) 368 mg in NSS 500 mL infusion 368 mg (200 mg/m2 1.84 m2 Treatment Plan BSA from Recorded weight), IV Piggyback, ONCE, 1 dose, On Thu06/27/24 at 1345, Administer over 180 Minutes, Administer through 0.22 micron low protein binding filter!Indications:Cancer, metastatic to bone (HCC),Lung cancer metastatic to bone (HCC),Encounter for antineoplastic chemotherapy,Prevention of chemotherapy-induced neutropenia Start Infusion 06/27/2024 1:29 PM EST 368 mg 170 mL/hr Zoledronic Acid (Zometa) 4 mg in 100 mL PREMIX ivpb 4 mg, IV Piggyback, ONCE, 1 dose, On Thu06/27/24 at 1345Indications:Lung cancer metastatic to bone (HCC) Start Infusion 06/27/2024 12:58 PM EST 4 mg 400 mL/hr documented in this encounter Care Teams Installment Dealer Relationship Specialty Start Date End Date Richard Marshall DO [address] [facility] [place] [id number] PCP - General Family Medicine 08/26/22 documented as of this encounter
--- OUTSIDE RECORDS SUMMARY | 2024-08-11 03:32 | External Medical Summary | Summary of Care ---
Author Name Unknown Organization [facility] Address [address] [facility] [place] [address] Phone [phone] Care Team Providers Care Supervisor Sheet Manufacturing Name Role Phone Richard Marshall DO Primary Care Provider [phone] Reason for Visit * Reason Comments Follow Up * Precert (Within 10 days (routine)) - Authorized Specialty Diagnoses / Procedures Referred By Constance molina Referred To Contact Ophthalmology Diagnoses Malignant neoplasm of right choroid (HCC) Procedures INECTION,BEVACIZUMAB, 10 MG IA INTRAVITREAL NJX PHARMACOLOGIC AGT SPX Anthony Grey DO Phone: tel: fax: Referral ID Status Reason Start Date Expiration Date V isits Requested Visits Authorized [id number] Authorized Precert 06/13/2021 07/26/2099 99 99 Encounter Details Date Type Department Care Team (Late st Contact Info) Description 06/28/2024 8:30 AM EST Office Visit Ophthalmology, [facility] [address] [place] [address] Anthony Grey DO [address] [place] [address] Radiation retinopathy, subsequent encounter* Allergies Active Allergy Reactions Criticality Noted Date Comments Iodinated Contrast Media 07/05/2021 "itchy, rash and hives" CT Scan documented as of this encounter (statuses as of 06/28/2024) Medications Vitamin D (Cholecalciferol) 50 MCG (1999) Oral Capsule Take by mouth at bedtime. Active Ferrous Sulfate 325 (65 Fe) MG Oral Tablet (Feosol) Take 1 Tablet by mouth at bedtime. Active Stiolto Respimat 2.5-2.5 MCG/ACT Inhalation Aerosol Solution (Tiotropium [place]-Olodaterol )Indications:COPD, severity to be determined (HCC) Inhale [...] of chemo. 30 Tablet 06/27/20 24 Active Hospital, Clinic, or Other Facility Administered Medication Ordered Dose Route Frequency Start Date End Date Status bevaCIZumab (Avastin) inj 1.25 mgIndications:Radiation retinopathy, subsequent encounter 1.25 mg IZ PRN 10/08/2023 10/07/2024 Active ROPivacaine (Naropin) inj 1.5 mgIndications:Radiation retinopathy, subsequent encounter 1.5 mg IJ PRN 10/08/2023 10/07/2024 Active documented as of this encounter (statuses as of 06/28/2024) Active Problems Problem Noted Date Diagnosed Date [...] as of this encounter (statuses as of 06/28/2024) Resolved Problems Problem Noted Date Diagnosed Date Resolved Date COPD, group A, by GOLD 2017 classification 07/07/2022 04/07/2024 Overview: Per COPD GOLD Classification COPD, severity to be determined 07/09/2021 07/10/2022 Overview: Per COPD GOLD Classification documented as of this encounter (statuses as of 06/28/2024) Immunizations Name Administration Dates Next Due Covid-19 [...] for ages 0-17 years) Not on file 10 / Food Insecurity Answer Date Recorded Do you [...] 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 Last Office Visit: 04/26/2024 (in office), Visit date not found (telemedicine) Patient currently states "not sure if from chemo but vision just not as crisp and clear as it was" Are you diabetic? No Do you drive? yes OCT image(s) of right eye acquired and filed/scanned into chart. Base Eye Exam Visual Acuity (Snellen - Linear) Right Left Dist cc 20/200 -1 20/20 -2 Dist ph cc NI Correction: Glasses Tonometry (Tonopen, 8:39 AM) Right Left Pressure 21 21 Pupils Pupils APD Right PERRL None Left PERRL None Visual Gregorio (Counting fingers) Right Left Full Restrictions Partial outer superior nasal, inferior nasal deficiencies Extraocular Movement Right Left Full, Ortho Full, Ortho Neuro/Psych Oriented x3: Yes Mood/Affect: Normal Dilation Both eyes: 0.5% Proparacaine @ 8:39 AM Dilation #2 Right eye: 1.0% Mydriacyl, 2.5% Phenylephrine @ 8:39 AM Dilation #3 Right eye: 1.0% Mydriacyl, 2.5% Phenylephrine @ 8:41 AM Dilation Comments Patient cautioned that effects of dilation may last 2-7 hours dependant upon individual reaction. It was discussed that driving while dilated is not recommended. EXTERNAL: The ocular adnexae are unremarkable. SLE: Lids/Lashes: wnl OU Conjunctiva/Sclera: quiet OU Cornea: clear OU Anterior Chamber: deep and quiet OU Iris: normal OU; no NVI OU Lens: PCIOL OD; 1+ NSC OS Dilated fundus exam OD: vitreous: clear optic nerve: 0.2, no edema/pallor/NVD macula: rpe loss/cme, large tmporal atrophic scar vessels: wnl periphery: large atrophic CR scar w/ central pig/vasc changes, no RT/RD Dilated fundus exam OS: 04/26/2024 vitreous: clear optic nerve: 0.2, no edema/pallor/NVD macula: wnl vessels: wnl periphery: wnl, no RT/RD OCT Interpretation: OD: CME, temporal atrophy--improved 139um prior no change, prior improved 65um prior no sig change,prior worse 50um prior worse 61um prior improved 63um prior mixed, prior improved 75um, prior [id number] prior STABLE, prior mixed, prior improved 151um OS: 04/26/2024: wnl, no cme/srfluid, pvd--stable OCTA Interpretation: 07/05/2021 OD: significant temporal (including fovea) capillary nonperfusion OS: wnl, no cme/srfluid A/P: 1. Radiation retinopathy OD Followed [facility] - Multiple injections of Avastin; possibly switched to Ozurdex? Moved to [place] January 2021 - previously in [place] for past 26 years. Injections - started 7-8 years prior - 2012, monthly to 3 months -Avastin 02/29/24, 12/17/23, 10/08/23, 08/04/23, 06/02/23, 03/24/23, 01/13/23, 09/16/22, 06/09/22,04/21/22, 03/05/22, 01/22/22, 12/03/21, 10/15/21, 08/20/21, 07/05/21--improved -8 weeks; worse at 14 weeks -pt wants to continue injections feels [facility] declines if does not receive injection 2. Choroidal melanoma OD - diagnosed 2003, 16mm x 11mm -s/p plaque radiation 2004 - [facility] 3. Pseudophakia OD -stable 4. Cataract OS -not visually significant -monitor 5. h/o OHT -monitor -recommend 'g' eval and w/u 6. h/o Ocular migraine OS -h/o migraine -Recommend polycarbonate lenses at all times potential for eye injury exists. F/u 8-10 weeks, OCT OD Anthony Grey DO CC: Doug Leyva DO PCP: Tiffany Garnica DO TIMEOUT PROCEDURE: correct patient identity-YES correct procedure and consent-YES verified side and site-YES correct patient position-YES all necessary equipment/prior studies present-YES reviewed special requirements of this patient-YES PROCEDURE: Intravitreal injection of Avastin 1.25mg OD INFORMED CONSENT: Patient is aware that this is an off-label use of Avastin and that Avastin is not FDA approved for this use. Risks, benefits and alternatives have been discussed with the patient. Risks include, but are not limited to: retinal tears, detachments, hemorrhage, glaucoma, infection, cataracts, need formore procedures and the potential risk of arterial thromboembolic events following use of intravitreal VEGF inhibitors defined as nonfatal stroke, nonfatal myocardial infarction or vascular . Patient is aware of these risks and consents to the procedure. DESCRIPTION OF PROCEDURE: The procedure site was confirmed. Topical proparacaine was applied to the surface of the eye after which subconjunctival anesthetic was administered. The area was prepped in the standard aseptic manner with 5% Betadine solution. An eyelid speculum was placed and 0.05 ml of a 25mg/ml solution of Avastin was injected 3.75 mm posterior to the limbus into the midvitreous cavity with a 30 gauge short needle. The Betadine was flushed from the eye, the eye speculum was removed and optic nerve perfusion was insured. The patient tolerated the procedure without difficulty and was given followup instructions and instructed to use ophthalmic ointment 3x/day as needed. Anthony Grey DO, performed the procedure in its entirety. documented in this encounter Nursing Notes * Darcy Velez LPN - 06/28/2024 8:59 AM EST Lanny Andrews to receive 19 Avastin 2.75 mg Injection of the Right eye. Correct eye confirmed with patient and marked by Anthony Grey DO Avastin 2.75 mg lot # [id number] Exp. Date: 08/27/2024 * Karyn Lynn RN - 06/28/2024 8:33 AM EST Lanny Andrews is a 59 year old year old female who presents for Readiation Retinopathy. Last Office Visit: 04/26/2024 (in office), Visit date not found (telemedicine) Patient currently states "not sure if from chemo but vision just not as crisp and clear as it was" Are you diabetic? No Do you drive? yes OCT image(s) of right eye acquired and filed/scanned into chart. documented in this encounter Plan of Treatment Upcoming Encounters Date Type Department Care Team (Late st Contact Info) Description 06/28/2024 4:45 PM EST Immunization/Injecti on Hematology/Oncology Treatment, [place] [address] [place] [phone] She[place], Chair 10 Hem Onc Scenery [address] [place] [address] 07/12/2024 8:45 AM EST Imaging Radiology [facility] 1st Floor, [place] [address] [facility] [place] [address] 07/18/2024 8:50 AM EST Laboratory Laboratory Scenery [place] [address] [place] [phone] She[place], Lab Scenery [address] [facility] [place] [address] 07/18/2024 9:30 AM EST Office Visit Hematology/Oncology [facility] [place] [address] [place] [phone] Nicole Vinson MD [address] [place] [phone] 07/18/2024 10:00 AM EST Hem/Onc Treatment Hematology/Oncology Treatment, [place] [address] [place] [address] [place], Chair 3 Hem Onc Scenery [address] [place] [address] 09/06/2024 8:45 AM EST Office Visit Ophthalmology, [facility] [address] [facility] [place] [address] Anthony Grey, DO [address] [place] [address] 03/10/2025 10:00 AM EDT Office Visit Sleep Disorders Ctr [facility] [address] [place] [phone] Margie Gutierrez, DO [address] [place] [address] Scheduled Orders Name Type Priority Associated Diagnoses Orde r Schedule RETINA SCAN DIAGNOSTIC IMAGE, POSTERIOR Procedures Routine Radiation retinopathy, subsequent encounter Ordered: 06/28/2024 Health Maintenance Due Date Last Done Comments [...] 01/11/2009 Sigmoidoscopy 01/11/2009 COVID-19 Vaccine (2 - Jeffery risk series) 01/16/2021 12/19/2020 Mammogram 09/22/2023 09/22/2022, [...] encounter Medical Devices Implanted Type Area Director Digital Strategy Device Identifier Shelf Expiration Date Model / Serial / Lot Port Implant W8f Poly Cath - [id number] Implanted:Qty : 1 on 04/20/2024 by Nathan Hardwick MD at OR [facility] Right: Chest CR BARD : PERIPHERAL VASCULAR [id number] 06/25/2025 [id number] / / [id number] documented as of this encounter Visit Diagnoses Diagnosis Radiation retinopathy, subsequent encounter- Primary documented in this encounter Administered Medications Active Administered Medications - up to 3 most recent administrations Medication Order MAR Action Action Date Dose Rate Site bevaCIZumab (Avastin) inj 1.25 mg 1.25 mg, Intravitreal, PRN Other, Starting on Thu10/08/23 at 0916, Until Thu10/07/24 at 0915, For 365 daysIndications:Radiation retinopathy, subsequent encounter Given 06/28/2024 9:01 AM EST 1.25 mg Eye R ight Given 04/26/2024 8:51 AM EDT 1.25 mg Ey e Right Given 02/29/2024 8:52 AM EDT 1.25 mg Ey e Right ROPivacaine (Naropin) inj 1.5 mg 1.5 mg, Injection, PRN Other, Starting on Carey 10/08/23 at 0916, Until Thu10/07/24 at 0915, For 365 daysIndications:Radiation retinopathy, subsequent encounter Given 06/28/2024 9:01 AM EST 1.5 mg Eye Right Given 04/26/2024 8:50 AM EDT 1.5 mg Ey e Right Given 02/29/2024 8:51 AM EDT 1.5 mg Ey e Right documented in this encounter Care Teams Supervisor Sheet Manufacturing Relationship Specialty Start Date End Date Richard Marshall DO [address], [place] [phone] PCP - General Family Medicine 08/26/22 documented as of this encounter
--- OUTSIDE RECORDS SUMMARY | 2024-08-11 03:32 | External Medical Summary | Summary of Care ---
Author Name Unknown Organization [facility] Address [address] [facility] [place] [address] Phone [phone] Care Team Providers Care Emotionally Impaired Teacher Name Role Phone Richard Marshall DO Primary Care Provider + [phone] Reason for Visit * Reason Comments Medication Administration Fulphila * Episode Based Medications (Routine) - Authorized Specialty Diagnoses / Procedures Referred By Contac t Referred To Contact Diagnoses Cancer, metastatic to bone (HCC) Lung cancer metastatic to bone (HCC) Encounter for antineoplastic chemotherapy Prevention of chemotherapy-induced neutropenia Procedures AL CARBOPLATIN INJECTION AL FOSAPREPITANT INJECTION AL INJ., ZIRABEV, 10 MG AL PACLITAXEL INJECTION AL INJECTION, UDENYCA 0.5 MG AL INJ MVASI 10 MG AL INJECTION, Nicole Wise MD [address] [place] [address] [place] [address] Phone: tel: fax: Hematology/Oncology Treatment, [address] [place] [address] Phone: tel: fax: Referral ID Status Reason Start Date Expiration Date V isits Requested Visits Authorized [id number] Authorized 05/31/2024 09/24/[phone] Encounter Details Date Type Department Care Team (Latest Contact Info) Description 06/28/2024 4:45 PM EST Immunization/ Injection Hematology/Oncology [address], [address] [address] She[place], Chair 10 Hem Onc [address] [address] Cancer, metastatic to bone (HCC)*; Lung cancer metastatic to bone (HCC); Encounter for antineoplastic chemotherapy; Prevention of chemotherapy-induced neutropenia Allergies Active Allergy Reactions Criticality Noted Date Comments Iodinated Contrast Media 07/05/2021 "itchy, rash and hives" CT Scan documented as of this encounter (statuses as of 06/28/2024) Medications Vitamin D (Cholecalciferol) 50 MCG (1999 UT) Oral Capsule Take by mouth at bedtime. Active Ferrous Sulfate 325 (65 Fe) MG Oral Tablet (Feosol) Take 1 Tablet by mouth at bedtime. 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 Overall she is feeling well aside from the Avastin injection she received in her eye today, eye is sore. Injection given in R arm per order. Patient left facility in stable condition, accompanied by today. Patient denies any furtherquestions or concerns, needs. documented in this encounter Plan of Treatment Upcoming Encounters Date Type Department Care Team (Late st Contact Info) Description 07/12/2024 8:45 AM EST Imaging Radiology [address], [place] [address] [facility] [place] [address] 07/18/2024 8:50 AM EST Laboratory Laboratory [facility] [place] [address] [place] [phone] Shereen, Lab Scenery [address] [facility] [place] [address] 07/18/2024 9:30 AM EST Office Visit Hematology/Oncology [facility] [place] [address] [place] [phone] Nicole Vinson MD [address] [place] [address] [place] [phone] 07/18/2024 10:00 AM EST Hem/Onc Treatment Hematology/Oncology Treatment, [place] [address] [place] [phone] She[place], Chair 3 Hem Onc Scenery [address] [place] [address] 09/06/2024 8:45 AM EST Office Visit Ophthalmology, [facility] [address] [facility] [place] [address] Anthony Grey, DO [address] [facility] [place] [address] 03/10/2025 10:00 AM EDT Office Visit Sleep Disorders Ctr [facility] [address] [facility] [place] [phone] Margie Gutierrez, DO [address] [facility] [place] [address] Health Maintenance Due Date Last Done Comments [...] this encounter Medical Devices Implanted Type Area Applications Support Specialist Device Identifier Shelf Expiration Date Model / Serial / Lot Port Implant W8f Poly Cath - [id number] Implanted:Qty : 1 on 04/20/2024 by Nathan Hardwick MD at OR [facility] Right: Chest CR BARD : PERIPHERAL VASCULAR [id number] 06/25/2025 [id number] / / [id number] documented as of this encounter Visit Diagnoses [...] 6 mg 6 mg, Subcutaneous, ONCE, On Thu06/28/24 at 1715, For 1 doseIndications:Cancer, metastatic to bone (HCC),Lung cancer metastatic to bone (HCC),Encounter for antineoplastic chemotherapy,Prevention of chemotherapy-induced neutropenia Given 06/28/2024 4:42 PM EST 6 mg Arm Right Upper documented in this encounter Care Teams Emotionally Impaired Teacher Relationship Specialty Start Date End Date Richard Marshall DO [address] [place] [phone] PCP - General Family Medicine 08/26/22 documented as of this encounter
--- OUTSIDE RECORDS SUMMARY | 2024-08-11 03:32 | External Medical Summary | Summary of Care ---
Author Name Unknown Organization [facility] Address [address] [facility] [place] [address] Phone [phone] Care Team Providers Care Shearer Operator Name Role Phone Richard Marshall DO Primary Care Provider + [phone] Reason for Visit * Reason Comments Chemotherapy Mvasi/Taxol/Carbo * Episode Based Medications (Routine) - Authorized Specialty Diagnoses / Procedures Referred By Contac t Referred To Contact Diagnoses Cancer, metastatic to bone (HCC) Lung cancer metastatic to bone (HCC) Encounter for antineoplastic chemotherapy Prevention of chemotherapy-induced neutropenia Procedures NJ CARBOPLATIN INJECTION NJ FOSAPREPITANT INJECTION NJ INJ., ZIRABEV, 10 MG NJ PACLITAXEL INJECTION NJ INJECTION, UDENYCA 0.5 MG NJ INJ MVASI 10 MG NJ INJECTION, Nicole Wise MD [address] [place] [address] [place] [phone] Phone: tel: fax: Hematology/Oncology Treatment, [address] [address] Phone: tel: fax: Referral ID Status Reason Start Date Expiration Date V isits Requested Visits Authorized [id number] Authorized 05/31/2024 09/24/[phone] Encounter Details Date Type Department Care Team (Latest Contact Info) Description 06/06/2024 10:00 AM EST Hem/Onc Treatment Hematology/Oncolog y Treatment, [address] [phone] She[place], Chair 11 Hem Onc [address] [address] Cancer, metastatic to bone (HCC)*; Lung cancer [...] Respimat 2.5-2.5 MCG/ACT Inhalation Aerosol Solution (Tiotropium [place]-Olodaterol )Indications:COPD, severity to be determined ([facility]) Inhale 2 Puffs by [...] 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 Not on file [...] Description 07/12/2024 8:45 AM EST Imaging Radiology [facility] 1st [facility] [address] [facility] [place] [address] 07/18/2024 8:50 AM EST Laboratory Laboratory [facility] [address] [place] [phone] Shereen Lab Scenery [address] [place], [place] [address] 07/18/2024 9:30 AM EST Office Visit Hematology/Oncology [place] [address] [place] [phone] Nicole Vinson MD [address] [place] [address] [place] [phone] 07/18/2024 10:00 AM EST Hem/Onc Treatment Hematology/Oncology Treatment, [place] [address] [place] [phone] She[place], Chair 3 Hem Onc Scenery [address] [place] [address] 09/06/2024 8:45 AM EST Office Visit Ophthalmology, [facility] [address] [place] [address] Anthony Grey, DO [address] [place] [address] 03/10/2025 10:00 AM EDT Office Visit Sleep Disorders Ctr [facility] [address] [place] [phone] Margie Gutierrez, DO [address] [place] [address] Health Maintenance Due Date Last Done Comments [...] this encounter Medical Devices Implanted Type Area Nail Artist Device Identifier Shelf Expiration Date Model / Serial / Lot Port Implant W8f Poly Cath - [id number] Implanted:Qty : 1 on 04/20/2024 by Nathan Hardwick MD at [facility] Right: Chest CR BARD : PERIPHERAL VASCULAR [id number] 06/25/2025 [id number] / / [id number] documented as of this encounter Visit Diagnoses [...] mL documented in this encounter Care Teams Shearer Operator Relationship Specialty Start Date End Date Richard Marshall DO [address] [place] [address] PCP - General Family Medicine 08/26/22 documented as of this encounter
--- OUTSIDE RECORDS SUMMARY | 2024-08-11 03:32 | External Medical Summary | Summary of Care ---
Author Name Unknown Organization [facility] Address [address] [facility] [place] [address] Phone [phone] Care Team Providers Care Manager Supplier Name Role Phone Richard Marshall DO Primary Care Provider + [phone] Reason for Visit * Reason Comments Outpatient Testing Encounter Details Date Type Department Care Team (Late st Contact Info) Description 06/27/2024 10:10 AM EST Laboratory Laboratory Scenery [facility] [address] [place] [phone] [facility] Lab Scenery [address] [place] [address] Lung cancer metastatic to bone (HCC); Cancer, [...] Respimat 2.5-2.5 MCG/ACT Inhalation Aerosol Solution (Tiotropium [place]-Olodaterol )Indications:COPD, severity to be determined ([facility]) Inhale 2 Puffs by mouth [...] 4 of chemo. 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 on file Not on f ile documented as of this encounter Plan of Treatment Upcoming Encounters Date Type Department Care Team (Late st Contact Info) Description 06/27/2024 11:15 AM EST Hem/Onc Treatment Hematology/Oncology Treatment, [place] [address] [place] [address] Shereen, Chair 4 Hem Onc Scenery [address] [place] [address] Arrived 06/28/2024 8:30 AM EST Office Visit Ophthalmology, [facility] [address] [place] [address] Anthony Grey, DO [address] [place] [address] 07/12/2024 8:45 AM EST Imaging Radiology [facility] 1st [facility], [place] [address] [place] [address] 03/10/2025 10:00 AM EDT Office Visit Sleep Disorders Ctr [facility] [address] [place] [phone] Margie Gutierrez, DO [address] [place] [address] Pending Results Name Type Priority Associated Diagnoses Date /Time CBC WITH WBC DIFFERENTIAL Lab STAT Lung cancer metastatic to bone (HCC) Cancer, metastatic to bone (HCC) 06/27/2024 10:18 AM EST COMPREHENSIVE METABOLIC PANEL Lab STAT Lung cancer metastatic to bone (HCC) Cancer, metastatic to bone (HCC) 06/27/2024 10:18 AM EST PHOSPHORUS Lab STAT Lung cancer metastatic to bone (HCC) Cancer, metastatic to bone (HCC) 06/27/2024 10:18 AM EST CBC Lab STAT Lung cancer metastatic to bone (HCC) Cancer, metastatic to bone (HCC) 06/27/2024 10:18 AM EST DIFFERENTIAL, AUTOMATED Lab STAT Lung cancer metastatic to bone (HCC) Cancer, metastatic to bone (HCC) 06/27/2024 10:18 AM EST URINALYSIS, REFLEX TO MICROSCOPIC Lab STAT Lung cancer metastatic to bone (HCC) Cancer, metastatic to bone (HCC) 06/27/2024 10:18 AM EST MICROSCOPIC EXAM, URINE Lab STAT Lung cancer metastatic to bone (HCC) Cancer, metastatic to bone (HCC) 06/27/2024 10:18 AM EST Health Maintenance Due Date Last [...] Lipid Panel 10/09/2026 10/09/2021, 07/09/2021 Diabetes Screening 06/06/2027 06/06/2024, 1 , 04/04/2024, Additional history exists Alpha-1 Antitrypsin Completed 10/09/2021 [...] this encounter Medical Devices Implanted Type Area Machine Straw Hat Presser Device Identifier Shelf Expiration Date Model / Serial / Lot Port Implant W8f Poly Cath - [id number] Implanted:Qty : 1 on 04/20/2024 by Nathan Hardwick MD at [facility] Right: Chest CR BARD : PERIPHERAL VASCULAR [id number] 06/25/2025 [id number] / / [id number] documented as of this encounter Visit Diagnoses Diagnosis Lung cancer metastatic to bone (HCC) Cancer, metastatic to bone (HCC) Secondary malignant neoplasm of bone and bone marrow documented in this encounter Care Teams Manager Supplier Relationship Specialty Start Date End Date Richard Marshall DO [address] [place] [address] PCP - General Family Medicine 08/26/22 documented as of this encounter
--- OUTSIDE RECORDS SUMMARY | 2024-08-11 03:32 | External Medical Summary | Summary of Care ---
Author Name Unknown Organization [facility] Address [address] [facility] [place] [address] Phone [phone] Care Team Providers Care Carburizing Furnace Operator Name Role Phone Richard Marshall DO Primary Care Provider + [phone] Reason for Visit * Reason Comments Chemotherapy Mvasi/Taxol/Carbo * Episode Based Medications (Routine) - Authorized Specialty Diagnoses / Procedures Referred By Contac t Referred To Contact Diagnoses Cancer, metastatic to bone (HCC) Lung cancer metastatic to bone (HCC) Encounter for antineoplastic chemotherapy Prevention of chemotherapy-induced neutropenia Procedures AR CARBOPLATIN INJECTION AR FOSAPREPITANT INJECTION AR INJ., ZIRABEV, 10 MG AR PACLITAXEL INJECTION AR INJECTION, UDENYCA 0.5 MG AR INJ MVASI 10 MG AR INJECTION, Nicole Wise MD [address] [place] [address] [place] [phone] Phone: tel: fax: Hematology/Oncology Treatment, [address] [address] Phone: tel: fax: Referral ID Status Reason Start Date Expiration Date V isits Requested Visits Authorized [id number] Authorized 05/31/2024 09/24/2024 [id number] Encounter Details Date Type Department Care Team (Latest Contact Info) Description 06/06/2024 10:00 AM EST Hem/Onc Treatment Hematology/Oncolog y Treatment, [address] [address] Shereen, Chair 11 Hem Onc [address] [address] Cancer, metastatic to bone (HCC)*; Lung cancer [...] Respimat 2.5-2.5 MCG/ACT Inhalation Aerosol Solution (Tiotropium [place]-Olodaterol )Indications:COPD, severity to be determined ([facility]) Inhale 2 Puffs by mouth [...] 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 on file [...] Description 07/12/2024 8:45 AM EST Imaging Radiology [facility] 1st [facility] [address] [facility] [place] [address] 07/18/2024 8:50 AM EST Laboratory Laboratory [facility] [address] [place] [phone] Shereen Lab Scenery [address] [place], [place] [address] 07/18/2024 9:30 AM EST Office Visit Hematology/Oncology Scenery [place] [address] [place] [phone] Nicole Vinson MD [address] [place] [address] [place] [phone] 07/18/2024 10:00 AM EST Hem/Onc Treatment Hematology/Oncology Treatment, [place] [address] [place] [place] [phone] Shereen, Chair 3 Hem Onc Scenery [address] [place] [address] 09/06/2024 8:45 AM EST Office Visit Ophthalmology, [facility] [address] [place] [place] [address] Anthony Grey, DO [address] [place] [address] 03/10/2025 10:00 AM EDT Office Visit Sleep Disorders Ctr [facility] [address] [place] [phone] Margie Gutierrez, DO [address] [place] [address] Health Maintenance Due Date Last Done Comments [...] this encounter Medical Devices Implanted Type Area Seam Rubber Device Identifier Shelf Expiration Date Model / Serial / Lot Port Implant W8f Poly Cath - [id number] Implanted:Qty : 1 on 04/20/2024 by Nathan Hardwick MD at [facility] Right: Chest CR BARD : PERIPHERAL VASCULAR [id number] 06/25/2025 [id number] / / [id number] documented as of this encounter Visit Diagnoses [...] mL documented in this encounter Care Teams Carburizing Furnace Operator Relationship Specialty Start Date End Date Richard Marshall DO [address] [place] [address] PCP - General Family Medicine 08/26/22 documented as of this encounter
--- OUTSIDE RECORDS SUMMARY | 2024-08-11 03:33 | External Medical Summary ---
Author Name Unknown Address Unknown Organization K09[facility] [place] [address] Laboratory Report Ordering Provider Test Date Status EDD ROCHA 06/27/2024 10:18:14 Final Observation Date Value Abnormality Reference (Units ) Status WBC, Total 06/27/2024 10:18:14 17.99 Above high normal 4 .00-10.80 (K/uL) Final RBC 06/27/2024 10:18:14 4.51 3.85-5.15 (M/uL) Final Hemoglobin 06/27/2024 10:18:14 13.7 12.0-15.3 (g/dL) Final HCT 06/27/2024 10:18:14 42.6 36.0-45.2 (%) Final MCV 06/27/2024 10:18:14 94.5 81.5-97.5 (fL) Final MCH 06/27/2024 10:18:14 30.4 27.0-34.0 (pg) Final MCHC 06/27/2024 10:18:14 32.2 32.0-36.0 (g/dL) Final RDW 06/27/2024 10:18:14 18.7 11.5-15.5 (%) Final Platelets 06/27/2024 10:18:14 267 140-400 (K /uL) Final MPV 06/27/2024 10:18:14 9.2 6.6-11.1 ( fL) Final Performing Location [facility] [address]
--- OUTSIDE RECORDS SUMMARY | 2024-08-11 03:33 | External Medical Summary | Summary of Care ---
Author Name Unknown Organization [facility] Address [address] [place] [facility] [place] [address] Phone [phone] Care Team Providers Care Training And Development Rep Name Role Phone Richard Marshall DO Primary Care Provider + [phone] Reason for Visit * Reason Comments Outpatient Testing Encounter Details Date Type Department Care Team (Late st Contact Info) Description 06/27/2024 10:10 AM EST Laboratory Laboratory Scenery 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 on file Not on f ile documented as of this encounter Plan of Treatment Upcoming Encounters Date Type Department Care Team (Late st Contact Info) Description 06/27/2024 10:30 AM EST Office Visit Hematology/Oncology [facility] [place] [address] [facility] [phone] Nicole Vinson MD [address] [place] [address] [place] [phone] Arrived 06/27/2024 11:15 AM EST Hem/Onc Treatment Hematology/Oncology Treatment, [place] [address] [facility] [address] [place] [phone] Shereen, Chair 4 Hem [facility] [address] Arrived 06/28/2024 8:30 AM EST Office Visit Ophthalmology, [facility] [place] [address] Anthony Grey, DO 132 [facility] [place] [address] 07/12/2024 8:45 AM EST Imaging Radiology [facility]st [facility] [place] [address] 03/10/2025 10:00 AM EDT Office Visit Sleep Disorders Ctr [facility] [address] [facility] [place] [phone] Margie Gutierrez, DO [address] [facility] [place] [address] Pending Results Name Type Priority Associated Diagnoses [...] this encounter Medical Devices Implanted Type Area Telegraph And Teletype Operator Device Identifier Shelf Expiration Date Model / Serial / Lot Port Implant W8f Poly Cath - [id number] Implanted:Qty : 1 on 04/20/2024 by Nathan Hardwick MD at [facility] Right: Chest CR BARD : PERIPHERAL VASCULAR [id number] 06/25/2025 [id number] / / [id number] documented as of this encounter Visit Diagnoses Diagnosis Lung cancer metastatic to bone (HCC) Cancer, metastatic to bone (HCC) Secondary malignant neoplasm of bone and bone marrow documented in this encounter Care Teams Training And Development Rep Relationship Specialty Start Date End Date Richard Marshall DO [address] [place] [address] PCP - General Family Medicine 08/26/22 documented as of this encounter
--- OUTSIDE RECORDS SUMMARY | 2024-08-11 03:33 | External Medical Summary ---
Author Name Unknown Address Unknown Organization K09:[facility] [place] [address] Laboratory Report Ordering Provider Test Date Status EDD ROCHA 06/27/2024 10:18:52 Final Observation Date Value Abnormality Reference (Units ) Status RBC, Urine 06/27/2024 10:18:52 3-5 Abnormal 0-2 (/HPF) Final WBC, Urine 06/27/2024 10:18:52 0-2 0-2 (/HPF) Final Bacteria [#/area] in Urine sediment by Microscopy high power field 06/27/2024 10:18:52 26-50 Abnormal 0-25 (/HPF) Final Epithelial cells.squamous [#/area] in Urine sediment by Microscopy high power field 06/27/2024 10:18:52 Many Abnormal None (/HPF) Final Mucus, Urine 06/27/2024 10:18:52 Many Abnormal None (/HPF) Final Performing Location [facility] [place] [address]
--- OUTSIDE RECORDS SUMMARY | 2024-08-11 03:33 | External Medical Summary | Summary of Care ---
Author Name Unknown Organization [facility] Address [address] [place] [address] Phone [phone] Care Team Providers Care Edge Worker Name Role Phone Richard Marshall DO Primary Care Provider [phone] Reason for Visit * Reason Onset Date Comments Advice 06/14/2024 Encounter Details Date Type Department Care Team (Late st Contact Info) Description 06/14/2024 Telephone Hematology/Oncology [facility] Shereen [place] [address] [facility] [phone] Services, Scheduling [address] [place] [address] Advice Allergies Active Allergy Reactions Criticality Noted Date Comments Iodinated Contrast Media 07/05/2021 "itchy, rash and hives" CT Scan documented as of this encounter (statuses as of 06/15/2024) Medications Vitamin D (Cholecalciferol) 50 MCG (1999) Oral Capsule Take by mouth at bedtime. Active Ferrous Sulfate 325 (65 Fe) MG Oral Tablet (Feosol) Take 1 Tablet by mouth at bedtime. Active Stiolto Respimat 2.5-2.5 MCG/ACT Inhalation Aerosol Solution (Tiotropium [place]-Olodaterol )Indications:COPD, severity to be determined (HCC) Inhale [...] Nausea. 30 Tablet 5 05/11/20 24 Active oxyCODONE HCl ER 40 MG Oral Tablet ER 12 Hour Abuse-Deterrent (OxyCONTIN)Indicat ions:Lung cancer metastatic to bone (HCC),Recurrent adenocarcinoma of lung, unspecified laterality (HCC),Pain from bone metastases (HCC),Cancer, metastatic to bone (HCC),Lesion of thoracic vertebra,Drug-philipp sirisha constipation Take 1 Tablet by mouth in the morning and 1 Tablet before bedtime. 60 Tablet 05/12/20 24 Active oxyCODONE-Acetamin ophen 5-325 MG Oral Tablet (Percocet)Indicati ons:Lung cancer metastatic to bone (HCC) Take 2 Tablets by mouth every 6 hours as needed for Pain, Moderate. 60 Tablet 05/12/20 24 Active Loratadine 10 MG Oral Tablet [...] ACCESSING. 30 g 1 05/12/20 24 Active dexAMETHasone 4 MG Oral Tablet (Decadron)Indicati ons:Lung cancer metastatic to bone (HCC),Pain from bone metastases (HCC),Cancer, metastatic to bone (HCC),Lesion of thoracic vertebra Take 2 Tablets by mouth daily with breakfast. 60 Tablet 05/17/20 24 Active OLANZapine 10 MG Oral Tablet [...] before bedtime. 40 Capsule 06/07/20 24 Active Hospital, Clinic, or Other Facility Administered Medication Ordered Dose Route Frequency Start Date End Date Status bevaCIZumab (Avastin) inj 1.25 mgIndications:Radiation retinopathy, subsequent encounter 1.25 mg IZ PRN 10/08/2023 10/07/2024 Active ROPivacaine (Naropin) inj 1.5 mgIndications:Radiation retinopathy, subsequent encounter 1.5 mg IJ PRN 10/08/2023 10/07/2024 Active documented as of this encounter (statuses as of 06/15/2024) Active Problems Problem Noted Date Diagnosed Date [...] as of this encounter (statuses as of 06/15/2024) Resolved Problems Problem Noted Date Diagnosed Date Resolved Date COPD, group A, by GOLD 2017 classification 07/07/2022 04/07/2024 Overview: Per COPD GOLD Classification COPD, severity to be determined 07/09/2021 07/10/2022 Overview: Per COPD GOLD Classification documented as of this encounter (statuses as of 06/15/2024) Immunizations Name Administration Dates Next Due Covid-19 [...] 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 Should take home COVID test. If home COVID test is positive or symptoms worsen patient should let us know, but may also recommend patient see PCP for acute visit. Calledpatient, she verbalized understanding and will keep us updated. * Telephone Encounter - Whit Martinez RN - 06/14/2024 11:12 AM EST Spoke to patient. She states that she woke up this morning not feeling great. Temp 100.9, nasal congestion. Denies cough. States that she has "chest pains" but clarifies that this is normally where she gets pain, if she has it, because of her cancer, she just hasn't had this pain in a little while. Patient received C2 bevacizumab, carbo, taxol 06/06 and pegfilgrastim 06/07. TT sent to Dr Vinson with the above. * Telephone Encounter - Rosa Grant OSA - 06/14/2024 11:01 AM EST Red Flag- running a fever, having congestion and chest pains. documented in this encounter Plan of Treatment Upcoming Encounters Date Type Department Care Team (Late st Contact Info) Description 06/27/2024 10:10 AM EST Laboratory [facility] [place] [address] [place] [phone] [facility] Scenery [address] [facility] [place] [address] 06/27/2024 10:30 AM EST Office Visit Hematology/Oncology Scenery [place] [address] [place], [place] [phone] Nicole Vinson MD [address] [place] [phone] 06/27/2024 11:15 AM EST Hem/Onc Treatment Hematology/Oncology Treatment, [place] [address] [place] [phone] Shereen, Chair 4 Hem Onc Scenery [address] [facility] [address] 06/28/2024 8:30 AM EST Office [facility] [place] [address] Anthony Grey, DO 132 [facility] [place] [address] 07/12/2024 8:45 AM EST Imaging Radiology [facility] 1st [facility] 132 [facility] [place] [address] 03/10/2025 10:00 AM EDT Office Visit Sleep Disorders Ctr [facility] 132 [facility] [place] [phone] Margie Gutierrez, DO [address] [place] [address] Health Maintenance Due Date Last Done Comments [...] this encounter Medical Devices Implanted Type Area Netezza Developer Device Identifier Shelf Expiration Date Model / Serial / Lot Port Implant W8f Poly Cath - [id number] Implanted:Qty : 1 on 04/20/2024 by Nathan Hardwick MD at OR [facility] Right: Chest CR BARD : PERIPHERAL VASCULAR [id number] 06/25/2025 [id number] / / [id number] documented as of this encounter Care Teams Edge Worker Relationship Specialty Start Date End Date Richard Marshall DO [address] [place] [address] PCP - General Family Medicine 08/26/22 documented as of this encounter
--- OUTSIDE RECORDS SUMMARY | 2024-08-11 03:33 | External Medical Summary ---
Author Name Unknown Address Unknown Organization K09:[facility] [place] [address] Laboratory Report Ordering Provider Test Date Status EDD ROCHA 06/27/2024 10:18:52 Final Observation Date Value Abnormality Reference (Units ) Status Color of Urine by Auto 06/27/2024 10:18:52 Yellow Light Yellow, Yellow, Dark Yellow Final Clarity, Urine 06/27/2024 10:18:52 Clear Clear Final Glucose [Mass/volume] in Urine by Automated test strip 06/27/2024 10:18:52 Negative Negative (mg/dL) Final Bilirubin.total [Presence] in Urine by Automated test strip 06/27/2024 10:18:52 Small Abnormal Negative Final Ketones [Mass/volume] in Urine by Automated test strip 06/27/2024 10:18:52 Trace Abnormal Negative (mg/dL) Final Specific gravity, Urine 06/27/2024 10:18:52 1.025 1.003-1.030 Final Hemoglobin [Presence] in Urine by Automated test strip 06/27/2024 10:18:52 Trace Abnormal Negative Final pH, Urine 06/27/2024 10:18:52 5.5 5.0-7.5 (Units) Final Protein [Mass/volume] in Urine by Automated test strip 06/27/2024 10:18:52 Negative Negative (mg/dL) Final Urobilinogen [Mass/volume] in Urine by Automated test strip 06/27/2024 10:18:52 1.0 0.2, 1.0 (mg/dL) Final Nitrite [Presence] in Urine by Automated test strip 06/27/2024 10:18:52 Negative Negative Final Leukocyte esterase [Presence] in Urine by Automated test strip 06/27/2024 10:18:52 Negative Negative Final Performing Location [facility] [place] [address]
--- OUTSIDE RECORDS SUMMARY | 2024-08-11 03:33 | External Medical Summary ---
Author Name Unknown Address Unknown Organization K09:[facility] [place] [address] Laboratory Report Ordering Provider Test Date Status EDD ROCHA 06/27/2024 10:18:14 Final Observation Date Value Abnormality Reference (Units ) Status Phosphate 06/27/2024 10:18:14 3.1 2.5-4.8 (m g/dL) Final Performing Location [facility] [place] [address]
--- OUTSIDE RECORDS SUMMARY | 2024-08-11 03:33 | External Medical Summary ---
Author Name Unknown Address Unknown Organization K09:[facility] [place] [facility] [address] Karla [address] [place] [address] Laboratory Report Ordering Provider Test Date Status EDD ROCHA 06/27/2024 10:18:14 Final Observation Date Value Abnormality Reference (Units ) Status BUN 06/27/2024 10:18:14 23 Above high normal 6-20 (mg/dL) Final Creatinine 06/27/2024 10:18:14 0.7 0.5-1.0 (mg/dL) Final Glomerular filtration rate/1.73 sq M.predicted [Volume Rate/Area] in Serum, Plasma or Blood by Creatinine-based formula (CKD-EPI) 06/27/2024 10:18:14 >90 >=60 (mL/min) Final eGFR is calculated based on the CKD-EPI 2020 equation. Sodium 06/27/2024 10:18:14 142 135-146 (m mol/L) Final Potassium 06/27/2024 10:18:14 3.6 3.5-5.1 (m mol/L) Final Cl 06/27/2024 10:18:14 102 98-107 (mm ol/L) Final CO2 06/27/2024 10:18:14 27 22-32 (mmo l/L) Final Anion gap 06/27/2024 10:18:14 13 7-15 (mmol /L) Final Glucose 06/27/2024 10:18:14 86 70-120 (mg /dL) Final Albumin 06/27/2024 10:18:14 4.1 3.8-5.0 (g /dL) Final AST (Aspartate aminotransferase) 06/27/2024 10:18:14 16 10-35 (U/L) Final Alk Phos 06/27/2024 10:18:14 91 35-130 (U/ L) Final Bilirubin, Total 06/27/2024 10:18:14 0.6 <=1 .2 (mg/dL) Final Calcium 06/27/2024 10:18:14 9.3 8.4-10.2 ( mg/dL) Final Protein 06/27/2024 10:18:14 6.9 6.0-8.3 (g /dL) Final ALT (Alanine aminotransferase) 06/27/2024 10:18:14 30 10-35 (U/L) Final Performing Location [facility] [place] [facility] [address] [place] [address]
--- OUTSIDE RECORDS SUMMARY | 2024-08-11 03:33 | External Medical Summary ---
Author Name Unknown Address Unknown Organization K09:[facility] [address]la [place] [address] Laboratory Report Ordering Provider Test Date Status EDD ROCHA 06/27/2024 10:18:14 Final Observation Date Value Abnormality Reference (Units ) Status SYNC LEUKOCYTES IN BLOOD BY AUTOMATED COUNT 06/27/2024 10:18:14 17.99 Above high normal 4.00-10.80 (K/uL) Final Neutrophils/100 leukocytes in Blood by Manual count 06/27/2024 10:18:14 74.0 40.0-75.0 (%) Final Lymphocytes/100 leukocytes in Blood by Manual count 06/27/2024 10:18:14 15.0 Below low normal 18.0-42.0 (%) Final Monocytes/100 leukocytes in Blood by Manual count 06/27/2024 10:18:14 9.0 1.0-11.0 (%) Final Eosinophils/100 leukocytes in Blood by Manual count 06/27/2024 10:18:14 1.0 0.0-6.0 (%) Final Metamyelocytes/100 leukocytes in Blood by Manual count 06/27/2024 10:18:14 1.0 Above high normal <=0.0 (%) Final Neutrophils [#/volume] in Blood by Manual count 06/27/2024 10:18:14 13.31 Above high normal 1.80-7.70 (K/uL) Final Lymphocytes [#/volume] in Blood by Manual count 06/27/2024 10:18:14 2.70 1.00-4.80 (K/uL) Final Monocytes [#/volume] in Blood by Manual count 06/27/2024 10:18:14 1.62 Above high normal 0.00-1.10 (K/uL) Final Eosinophils [#/volume] in Blood by Manual count 06/27/2024 10:18:14 0.18 0.00-0.70 (K/uL) Final Metamyelocytes [#/volume] in Blood by Manual count 06/27/2024 10:18:14 0.18 Above high normal <=0.00 (K/uL) Final Nucleated erythrocytes/100 leukocytes [Ratio] in Blood by Automated count 06/27/2024 10:18:14 Final Neutrophils.vacuolated [Presence] in Blood by Light microscopy 06/27/2024 10:18:14 Present Abnormal None Seen Final Performing Location [facility] [place] [address] [place] [address]
--- OUTSIDE RECORDS SUMMARY | 2024-08-11 03:33 | External Medical Summary | Summary of Care ---
Author Name Unknown Organization [facility] Address [address] [place] [address] Phone [phone] Care Team Providers Care Business Applications Analyst Name Role Phone Richard Marshall DO Primary Care Provider [phone] Reason for Visit * Reason Onset Date Comments Advice 06/14/2024 Encounter Details Date Type Department Care Team (Late st Contact Info) Description 06/14/2024 Telephone Hematology/Oncology [facility] Shereen [place] [address] [facility] [address] Services, Scheduling [address] [place] [address] Advice Allergies Active Allergy Reactions Criticality Noted [...] Respimat 2.5-2.5 MCG/ACT Inhalation Aerosol Solution (Tiotropium [place]-Olodaterol )Indications:COPD, severity to be determined (HCC) Inhale [...] 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 Scenery [address] [facility] [place] [address] 06/27/2024 10:30 AM EST Office Visit Hematology/Oncology Scenery Shereen [place] [address] [place], [place] [phone] Nicole Vinson MD [address] [facility] [place] [address] 06/27/2024 11:15 AM EST Hem/Onc Treatment Hematology/Oncology Treatment, [place] [address] [place] [address] Shereen, Chair 4 Hem Onc [place] [address] [facility] [address] 06/28/2024 8:30 AM EST Office Visit Ophthalmology, [facility] [place] [address] Anthony Grey, DO 132 [facility] [place] [address] 07/12/2024 8:45 AM EST Imaging Radiology [facility] 1st [facility] 132 [facility] [place] [address] 03/10/2025 10:00 AM EDT Office Visit Sleep Disorders Ctr [facility] 132 [facility] [place] [phone] Margie Gutierrez, DO [address] [facility] [address] Health Maintenance Due Date Last Done Comments [...] this encounter Medical Devices Implanted Type Area Flavor Room Worker Device Identifier Shelf Expiration Date Model / Serial / Lot Port Implant W8f Poly Cath - [id number] Implanted:Qty : 1 on 04/20/2024 by Nathan Hardwick MD at OR [facility] Right: Chest CR BARD : PERIPHERAL VASCULAR [id number] 06/25/2025 [id number] / / [id number] documented as of this encounter Care Teams Business Applications Analyst Relationship Specialty Start Date End Date Richard Marshall DO [address] [place] [address] PCP - General Family Medicine 08/26/22 documented as of this encounter
--- OUTSIDE RECORDS SUMMARY | 2024-08-11 03:33 | External Medical Summary | Summary of Care ---
Author Name Unknown Organization [facility] Address [address] [facility] [place] [address] Phone [phone] Care Team Providers Care Concrete Journeyman Name Role Phone Richard Marshall DO Primary Care Provider [phone] Reason for Visit * Reason Onset Date Comments Medication Refill 06/06/2024 Encounter Details Date Type Department Care Team (Late st Contact Info) Description 06/06/2024 Telephone Hematology/Oncology Treatment, [place] [address] [place] [address] Nicole Vinson MD 400 [facility] [place] [address] Medication Refill Allergies Active Allergy Reactions Criticality Noted Date Comments Iodinated Contrast Media 07/05/2021 "itchy, rash and hives" CT Scan documented as of this encounter (statuses as of 06/07/2024) Medications Vitamin D (Cholecalciferol) 50 MCG (1999) Oral Capsule Take by mouth at bedtime. Active Ferrous Sulfate 325 (65 Fe) MG Oral Tablet (Feosol) Take 1 Tablet by mouth at bedtime. Active Stiolto Respimat 2.5-2.5 MCG/ACT Inhalation Aerosol Solution (Tiotropium [place]-Olodaterol )Indications:COPD, severity to be determined (HCC) Inhale [...] of chemo. 4 Tablet 06/06/20 24 Active OLANZapine 10 MG Oral Tablet (zyPREXA)Indicatio ns:Cancer, metastatic to bone (HCC),Lung cancer metastatic to bone (HCC),Encounter for antineoplastic chemotherapy,Preve ntion of chemotherapy-induc ed neutropenia Take 1 Tablet by mouth at bedtime for 4 days. On days 1, 2, 3, and 4 of chemo. 4 Tablet 05/11/20 24 024 Discontin ued(Refil l) Hospital, Clinic, or Other Facility Administered Medication Ordered Dose Route Frequency Start Date End Date Status bevaCIZumab (Avastin) inj 1.25 mgIndications:Radiation retinopathy, subsequent encounter 1.25 mg IZ PRN 10/08/2023 10/07/2024 Active ROPivacaine (Naropin) inj 1.5 mgIndications:Radiation retinopathy, subsequent encounter 1.5 mg IJ PRN 10/08/2023 10/07/2024 Active documented as of this encounter (statuses as of 06/07/2024) Active Problems Problem Noted Date Diagnosed Date [...] as of this encounter (statuses as of 06/07/2024) Resolved Problems Problem Noted Date Diagnosed Date Resolved Date COPD, group A, by GOLD 2017 classification 07/07/2022 04/07/2024 Overview: Per COPD GOLD Classification COPD, severity to be determined 07/09/2021 07/10/2022 Overview: Per COPD GOLD Classification documented as of this encounter (statuses as of 06/07/2024) Immunizations Name Administration Dates Next Due Covid-19 [...] 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 She verbalized understanding. Advised patient to ask her Pharmacist about the medication if she needs any information, she verbalized understanding. * Telephone Encounter - Nicole Vinson MD - 06/06/2024 11:29 PM EST Thank you I'll prescribe the antibiotic * Telephone Encounter - Mayte Tatum CRNP - 06/06/2024 4:58 PM EST Zyprexa e-prescribed. * Telephone Encounter - Alida Titus RN - 06/06/2024 4:53 PM EST Patient here for tx today and was told she needed to start taking an antibiotic for her port stitchthat is swollen and red/irritated/some oozing present at stitch site. Overall port site is WNL. Patient is also out of Zyprexa and states she was only given enough Zyprexa to get through the first cycle of chemo. Patient will need this refilled. Mayte: As discussed with you, please refill Zyprexa prescription for patient to take starting tonight. Thanks. Dr. Vinson - Please write prescription for antibiotic since you had assessed port site todayand script had not been sent/medication had not been ordered or prescribed yet. Thanks. documented in this encounter Plan of Treatment Upcoming Encounters Date Type Department Care Team (Late st Contact Info) Description 06/07/2024 4:30 PM EST Immunization/Injecti on Hematology/Oncology Treatment, [place] [facility] [phone] Shereen, Chair 8 Hem Onc [address] [place] [address] 06/27/2024 10:10 AM EST Laboratory Laboratory [facility] [address] [place] [phone] Shereen, Lab [address] [facility] [place] [address] 06/27/2024 10:30 AM EST Office Visit Hematology/Oncology [facility] [place] 200 [facility] [place] [phone] Nicole Vinson MD [address] [place] [address] [place] [phone] 06/27/2024 11:15 AM EST Hem/Onc Treatment Hematology/Oncology Treatment, [place] 200 [facility] [phone] Shereen, Chair 4 Hem Onc [facility] 200 [facility] [place] [address] 06/28/2024 8:30 AM EST Office Visit Ophthalmology, [facility] 132 [facility] [place] [address] Anthony Grey, DO [address] [place] [address] 07/12/2024 8:45 AM EST Imaging Radiology [address], [place] [address] [place] [address] 03/10/2025 10:00 AM EDT Office Visit Sleep Disorders Ctr [facility] [address] [place] [phone] Margie Gutierrez, DO [address] [place] [address] Health Maintenance Due Date Last Done Comments [...] this encounter Medical Devices Implanted Type Area Manager Gas Device Identifier Shelf Expiration Date Model / Serial / Lot Port Implant W8f Poly Cath - [id number] Implanted:Qty : 1 on 04/20/2024 by Nathan Hardwick MD at OR [facility] Right: Chest CR BARD : PERIPHERAL VASCULAR [id number] 06/25/2025 [id number] / / [id number] documented as of this encounter Visit Diagnoses Diagnosis Lung cancer metastatic to bone (HCC)- Primary Cancer, metastatic to bone (HCC) Secondary malignant neoplasm of bone and bone marrow Encounter for antineoplastic chemotherapy Prevention of chemotherapy-induced neutropenia documented in this encounter Care Teams Concrete Journeyman Relationship Specialty Start Date End Date Richard Marshall DO [address] [place] [address] PCP - General Family Medicine 08/26/22 documented as of this encounter
--- OUTSIDE RECORDS SUMMARY | 2024-08-11 03:33 | External Medical Summary | Summary of Care ---
Author Name Unknown Organization [facility] Address [address] [facility] [place] [address] Phone [phone] Care Team Providers Care Legal Services Professional Name Role Phone Richard Marshall DO Primary Care Provider [phone] Reason for Visit * Reason Onset Date Comments Medication Refill 06/15/2024 Encounter Details Date Type Department Care Team (Late st Contact Info) Description 06/15/2024 Refill Hematology/Oncology Treatment, [place] [address] [place] [address] Josefina Puga MD 400 [place] [address] Lung cancer metastatic to bone (HCC); Recurrent adenocarcinoma of lung, unspecified laterality (HCC); Pain from bone metastases (HCC); Cancer, metastatic to bone (HCC); Lesion of thoracic vertebra; Drug-induced constipation Allergies Active Allergy Reactions Criticality Noted Date Comments Iodinated Contrast Media 07/05/2021 "itchy, rash and hives" CT Scan documented as of this encounter (statuses as of 06/16/2024) Medications Vitamin D (Cholecalciferol) 50 MCG (1999) Oral Capsule Take by mouth at bedtime. Active Ferrous Sulfate 325 (65 Fe) MG Oral Tablet (Feosol) Take 1 Tablet by mouth at bedtime. Active Stiolto Respimat 2.5-2.5 MCG/ACT Inhalation Aerosol Solution (Tiotropium [place]-Olodaterol )Indications:COPD, severity to be determined (HCC) Inhale [...] with breakfast. 60 Tablet 06/16/20 24 Active oxyCODONE HCl ER 40 MG [...] as of this encounter (statuses as of 06/16/2024) Active Problems Problem Noted Date Diagnosed Date [...] as of this encounter (statuses as of 06/16/2024) Resolved Problems Problem Noted Date Diagnosed Date Resolved Date COPD, group A, by GOLD 2017 classification 07/07/2022 04/07/2024 Overview: Per COPD GOLD Classification COPD, severity to be determined 07/09/2021 07/10/2022 Overview: Per COPD GOLD Classification documented as of this encounter (statuses as of 06/16/2024) Immunizations Name Administration Dates Next Due Covid-19 [...] No 05/22/2023 Does the household have a [facility] source of income? 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 file Not on f ile documented as of this encounter Miscellaneous Notes * Telephone Encounter - Josefina Puga MD - 06/16/2024 11:08 AM ESTSigned Prescriptions: Disp Refills oxyCODONE HCl ER 40 MG Oral Tablet ER 12 H*60 Tab*0 Sig: Take 1 Tablet by mouth in the morning and 1 Tablet before bedtime.Authorizing Provider: JOSEFINA PUGA oxyCODONE- Acetaminophen 5-325 MG Oral Tabl*60 Tab*0 Sig: Take 2 Tablets by mouth every 6 hours as needed for Pain, Moderate.Authorizing Provider: JOSEFINA PUGA dexAMETHasone 4 MG Oral Tablet (Decadron) 60 Tab*0 Sig: Take 1 Tablet by mouth daily with breakfast.Authorizing Provider: JOSEFINA PUGA * Telephone Encounter - Belinda Arrington LPN - 06/15/2024 8:51 AM ESTPending Prescriptions: Disp Refills oxyCODONE HCl ER 40 MG Oral Tablet ER 12 H*60 Tab*0 Sig: Take 1 Tablet by mouth in the morning and 1 Tablet before bedtime. oxyCODONE-Acetaminophen 5-325 MG Oral Tabl*60 Tab*0 Sig: Take 2 Tablets by mouth every 6 hours as needed for Pain, Moderate. dexAMETHasone 4 MG Oral Tablet (Decadron) 60 Tab*0 Sig: Take 2 T ablets by mouth daily with breakfast. * Telephone Encounter - Belinda Arrington LPN - 06/15/2024 8:46 AM EST Refill requests for Oxycontin 40 mg tab, Oxycodone-Acetaminophen 5-325m mg tab, and Dexamethasone 4mg tab pended below: Last Refill: 05/12/2024 PDMP: Oxycontin 40 mg, last refilled 05/15/2024, qty: 60, 30-day supply. Oxycodone-Acetaminophen 5-325 mg, last refilled 05/12/2024, qty: 60, 8-day supply. No issues Last seen: 06/06/2024 Continue Oxycontin 40 mg every 12 hours for long-acting pain relief. Continue taking percocet 1-2 tablets prn for breakthrough pain Decrease Dexamethasone from 8 mg to 4 mg daily due to T2 vertebral pain- Next Appt.: 06/27/2024 documented in this encounter Plan of Treatment Upcoming Encounters Date Type Department Care Team (Late st Contact Info) Description 06/27/2024 10:10 AM EST Laboratory Laboratory [facility] [address] [place] [phone] Shereen, Lab [facility] 200 [facility] [address] 06/27/2024 10:30 AM EST Office Visit Hematology/Oncology [facility] [place] 200 [facility] [place] [phone] Josefina Puga MD [address] [place], [place] [address] [phone] 06/27/2024 11:15 AM EST Hem/Onc Treatment Hematology/Oncology Treatment, [place] 200 [facility] [address] [place] [phone] Shereen, Chair 4 Hem Onc [facility] 200 [facility] [place] [address] 06/28/2024 8:30 AM EST Office Visit Ophthalmology, [facility] 132 [facility] [place] [address] Anthony Grey, DO [address] [place] [address] 07/12/2024 8:45 AM EST Imaging Radiology [facility] 1st [facility], [place] [address] [place] [address] 03/10/2025 10:00 AM EDT Office Visit Sleep Disorders Ctr [facility] [address] [place] [phone] Zahira Gutierrezy Elyssa, 132 [facility] [place] [address] Health Maintenance Due Date Last Done Comments [...] this encounter Medical Devices Implanted Type Area Fur Feeder Device Identifier Shelf Expiration Date Model / Serial / Lot Port Implant W8f Poly Cath - [id number] Implanted:Qty : 1 on 04/20/2024 by Nathan Hardwick MD at [facility] Right: Chest CR BARD : PERIPHERAL VASCULAR [id number] 06/25/2025 [id number] / / [id number] documented as of this encounter Visit Diagnoses Diagnosis Lung cancer metastatic to bone (HCC) Recurrent adenocarcinoma of lung, unspecified laterality (HCC) Pain from bone metastases (HCC) Cancer, metastatic to bone (HCC) Secondary malignant neoplasm of bone and bone marrow Lesion of thoracic vertebra Drug-induced constipation Other constipation documented in this encounter Care Teams Legal Services Professional Relationship Specialty Start Date End Date Richard Marshall DO 16 [place] [address] PCP - General Family Medicine 08/26/22 documented as of this encounter
--- OUTSIDE RECORDS SUMMARY | 2024-08-11 03:33 | External Medical Summary | Summary of Care ---
Author Name Unknown Organization [facility] Address [address] [place] [address] Phone [phone] Care Team Providers Care Lump Maker Name Role Phone Richard Marshall DO Primary Care Provider [phone] Reason for Visit * Reason Onset Date Comments Advice 06/14/2024 Encounter Details Date Type Department Care Team (Late st Contact Info) Description 06/14/2024 Telephone Hematology/Oncology [facility] Shereen [place] [address] [facility] [address] Services, Scheduling [address] [place] [address] Advice Allergies Active Allergy Reactions Criticality Noted Date Comments Iodinated Contrast Media 07/05/2021 "itchy, rash and hives" CT Scan documented as of this encounter (statuses as of 06/14/2024) Medications Vitamin D (Cholecalciferol) 50 MCG (1999) Oral Capsule Take by mouth at bedtime. Active Ferrous Sulfate 325 (65 Fe) MG Oral Tablet (Feosol) Take 1 Tablet by mouth at bedtime. Active Stiolto Respimat 2.5-2.5 MCG/ACT Inhalation Aerosol Solution (Tiotropium [place]-Olodaterol )Indications:COPD, severity to be determined (HCC) Inhale [...] as of this encounter (statuses as of 06/14/2024) Active Problems Problem Noted Date Diagnosed Date [...] as of this encounter (statuses as of 06/14/2024) Resolved Problems Problem Noted Date Diagnosed Date Resolved Date COPD, group A, by GOLD 2017 classification 07/07/2022 04/07/2024 Overview: Per COPD GOLD Classification COPD, severity to be determined 07/09/2021 07/10/2022 Overview: Per COPD GOLD Classification documented as of this encounter (statuses as of 06/14/2024) Immunizations Name Administration Dates Next Due Covid-19 [...] 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 on [...] Description 06/27/2024 10:10 AM EST Laboratory [facility] Shereen [place] [address] [place] [address] [facility] [address] [facility] [place] [address] 06/27/2024 10:30 AM EST Office Visit Hematology/Oncology [place] Shereen [place] [address] [place], [place] [phone] Nicole Vinson MD [address] [place] [address] 06/27/2024 11:15 AM EST Hem/Onc Treatment Hematology/Oncology Treatment, [place] [address] [place] [address] Shereen, Chair 4 Hem Onc [place] [address] [facility] [address] 06/28/2024 8:30 AM EST Office Visit Ophthalmology, [facility] [place] [address] Anthony Grey, DO 132 [facility] [place] [address] 07/12/2024 8:45 AM EST Imaging Radiology [facility] 1st [facility] 132 [facility] [place] [address] 03/10/2025 10:00 AM EDT Office Visit Sleep Disorders Ctr [facility] 132 [facility] [place] [phone] Margie Gutierrez, DO [address] [place] [address] Health Maintenance Due Date Last Done Comments [...] this encounter Medical Devices Implanted Type Area Subway Conductor Device Identifier Shelf Expiration Date Model / Serial / Lot Port Implant W8f Poly Cath - [id number] Implanted:Qty : 1 on 04/20/2024 by Nathan Hardwick MD at OR [facility] Right: Chest CR BARD : PERIPHERAL VASCULAR [id number] 06/25/2025 [id number] / / [id number] documented as of this encounter Care Teams Lump Maker Relationship Specialty Start Date End Date Richard Marshall DO [address] [place] [address] PCP - General Family Medicine 08/26/22 documented as of this encounter
--- OUTSIDE RECORDS SUMMARY | 2024-08-11 03:33 | External Medical Summary | Summary of Care ---
Author Name Unknown Organization [facility] Address [address] [facility] [place] [address] Phone [phone] Care Team Providers Care Supervisor Furnace Room Name Role Phone Richard Marshall DO Primary Care Provider [phone] Reason for Visit * Reason Comments Medication Administration Fulphila 6mg * Episode Based Medications (Routine) - Authorized [...] 10 MG KS INJECTION, Nicole Wise MD [address] [place] [address] [place] [address] Phone: tel: fax: Hematology/Oncology Treatment, [address] [place] [address] Phone: tel: fax: Referral ID Status Reason Start Date Expiration Date V isits Requested Visits Authorized [id number] Authorized 05/31/2024 09/24/2024 [id number] Encounter Details Date Type Department Care Team (Latest Contact Info) Description 06/07/2024 4:30 PM EST Immunization/ Injection Hematology/Oncology Treatment, [address] [place] [address] Shereen, Chair 8 Hem Onc [address] [address] Cancer, metastatic to bone (HCC)*; Lung cancer metastatic to bone (HCC); Encounter for antineoplastic chemotherapy; Prevention of chemotherapy-induced neutropenia Allergies Active Allergy Reactions Criticality Noted Date Comments Iodinated Contrast Media 07/05/2021 "itchy, rash and hives" CT Scan documented as of this encounter (statuses as of 06/07/2024) Medications Vitamin D (Cholecalciferol) 50 MCG (1999 [place]) Oral Capsule Take by mouth at bedtime. Active Ferrous Sulfate 325 (65 Fe) MG Oral Tablet (Feosol) Take 1 Tablet by mouth at bedtime. 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 Patient tolerated injection. documented in this encounter Plan of Treatment Upcoming Encounters Date Type Department Care Team (Late st Contact Info) Description 06/27/2024 10:10 AM EST Laboratory Laboratory [facility] [place] [address] [place] [phone] [place] Regan [address] Karla Toth [place] [address] 06/27/2024 10:30 AM EST Office Visit Hematology/Oncology [place] [address] [place] [phone] Nicole Vinson MD [address] [place] [address] 06/27/2024 11:15 AM EST Hem/Onc Treatment Hematology/Oncology Treatment, [place] [address] [place] [phone] Shereen, Chair 4 Hem Onc [place] [address] [place] [address] 06/28/2024 8:30 AM EST Office Visit Ophthalmology, [facility] 132 [facility] [place] [address] Anthony Grey, DO 132 [facility] [place] [address] 07/12/2024 8:45 AM EST Imaging Radiology [facility] 1st [facility], [place] 132 [facility] [place] [address] 03/10/2025 10:00 AM EDT Office Visit Sleep Disorders Ctr [facility] 132 [facility] [place] [phone] Margie Gutierrez, DO 132 [facility] [place] [address] Health Maintenance Due Date Last Done Comments [...] this encounter Medical Devices Implanted Type Area Curing Oven Tender Device Identifier Shelf Expiration Date Model / Serial / Lot Port Implant W8f Poly Cath - [id number] Implanted:Qty : 1 on 04/20/2024 by Nathan Hardwick MD at OR [facility] Right: Chest CR BARD : PERIPHERAL VASCULAR [id number] 06/25/2025 [id number] / / [id number] documented as of this encounter Visit Diagnoses [...] 6 mg 6 mg, Subcutaneous, ONCE, On Thu06/07/24 at 1715, For 1 doseIndications:Cancer, metastatic to bone (HCC),Lung cancer metastatic to bone (HCC),Encounter for antineoplastic chemotherapy,Prevention of chemotherapy-induced neutropenia Given 06/07/2024 4:32 PM EST 6 mg Arm Right Upper documented in this encounter Care Teams Supervisor Furnace Room Relationship Specialty Start Date End Date Richard Marshall DO [address] [place], [place] [phone] PCP - General Family Medicine 08/26/22 documented as of this encounter
--- OUTSIDE RECORDS SUMMARY | 2024-08-11 03:33 | External Medical Summary | Summary of Care ---
Author Name Unknown Organization [facility] Address [address] [place] [address] Phone [phone] Care Team Providers Care Mixer Helper Name Role Phone Richard Marshall DO Primary Care Provider [phone] Reason for Visit * Reason Onset Date Comments Advice 06/14/2024 Encounter Details Date Type Department Care Team (Late st Contact Info) Description 06/14/2024 Telephone Hematology/Oncology [facility] [place] [address] [facility] [address] Services, Scheduling [address] [place] [address] Advice Allergies Active Allergy Reactions Criticality Noted [...] Respimat 2.5-2.5 MCG/ACT Inhalation Aerosol Solution (Tiotropium [place]-Olodaterol )Indications:COPD, severity to be determined (HCC) Inhale [...] 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 * Telephone Encounter - Whit Martinez RN [...] Description 06/27/2024 10:10 AM EST Laboratory Laboratory [facility] [place] [address] [place] [phone] [place], Lab Scenery [address] [place] [address] 06/27/2024 10:30 AM EST Office Visit Hematology/Oncology [facility] [place] [address] [place] [phone] Nicole Vinson MD [address] [place] [address] [place] [phone] 06/27/2024 11:15 AM EST Hem/Onc Treatment Hematology/Oncology Treatment, [place] [address] [place] [phone] Shereen, Chair 4 Hem Onc Scenery 200 [place] [address] 06/28/2024 8:30 AM EST Office Visit Ophthalmology, [facility] [place] [address] Anthony Grey, DO 132 [facility] [place] [address] 07/12/2024 8:45 AM EST Imaging Radiology [facility] 1st [facility] [place] [address] 03/10/2025 10:00 AM EDT Office Visit Sleep Disorders Ctr [facility] 132 [facility] [place] [phone] Margie Gutierrez, 132 [facility] [place] [address] Health Maintenance Due Date Last Done Comments [...] this encounter Medical Devices Implanted Type Area Stretcher And Drier Device Identifier Shelf Expiration Date Model / Serial / Lot Port Implant W8f Poly Cath - [id number] Implanted:Qty : 1 on 04/20/2024 by Nathan Hardwick MD at OR [facility] Right: Chest CR BARD : PERIPHERAL VASCULAR [id number] 06/25/2025 [id number] / / [id number] documented as of this encounter Care Teams Mixer Helper Relationship Specialty Start Date End Date Richard Marshall DO [address] [place], [place] [phone] PCP - General Family Medicine 08/26/22 documented as of this encounter
--- OUTSIDE RECORDS SUMMARY | 2024-08-11 03:33 | External Medical Summary | Summary of Care ---
Author Name Unknown Organization [facility] Address [address] [facility] [address] Phone [phone] Care Team Providers Care Photostat Operator Name Role Phone Richard Marshall DO Primary Care Provider [phone] Reason for Visit * Reason Onset Date Comments Medication Refill 06/06/2024 Encounter Details Date Type Department Care Team (Late st Contact Info) Description 06/06/2024 Telephone Hematology/Oncology Treatment, [place] [address] [place] [address] Nicole Vinson MD 400 [facility] [place] [address] Medication Refill Allergies Active Allergy Reactions [...] Respimat 2.5-2.5 MCG/ACT Inhalation Aerosol Solution (Tiotropium [place]-Olodaterol )Indications:COPD, severity to be determined (HCC) Inhale [...] 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 200 [facility] [place] [phone] [place], [facility] 200 [facility] [place], [place] [address] 06/27/2024 10:30 AM EST Office Visit Hematology/Oncology [facility] 200 [facility], [place] [phone] Nicole Vinson MD [address] [place] [address] [place] [phone] 06/27/2024 11:15 AM EST Hem/Onc Treatment Hematology/Oncology Treatment, [place] 200 [facility], [place] [phone] Shereen, Chair 4 Hem Onc [facility] 200 [facility] [place], [place] [address] 06/28/2024 8:30 AM EST Office Visit Ophthalmology, [facility] 132 [facility] [place] [address] Anthony Grey, DO 132 [facility] [place] [address] 07/12/2024 8:45 AM EST Imaging Radiology [facility] [address] [place] [address] 03/10/2025 10:00 AM EDT Office Visit Sleep Disorders Ctr [address] [place] [address] Margie Gutierrez, [address] [place] [address] Health Maintenance Due Date Last Done Comments [...] this encounter Medical Devices Implanted Type Area Calculation Reviewer Device Identifier Shelf Expiration Date Model / Serial / Lot Port Implant W8f Poly Cath - [id number] Implanted:Qty : 1 on 04/20/2024 by Nathan Hardwick MD at OR [facility] Right: Chest CR BARD : PERIPHERAL VASCULAR [id number] 06/25/2025 [id number] / / [id number] documented as of this encounter Visit Diagnoses Diagnosis Lung cancer metastatic to bone (HCC)- Primary Cancer, metastatic to bone (HCC) Secondary malignant neoplasm of bone and bone marrow Encounter for antineoplastic chemotherapy Prevention of chemotherapy-induced neutropenia documented in this encounter Care Teams Photostat Operator Relationship Specialty Start Date End Date Richard Marshall DO [address] [place], [place] [phone] PCP - General Family Medicine 08/26/22 documented as of this encounter
--- OUTSIDE RECORDS SUMMARY | 2024-08-11 03:34 | External Medical Summary | Summary of Care ---
Author Name Unknown Organization [facility] Address [address] [facility] [place] [address] Phone [phone] Care Team Providers Care Solar Energy Systems Designer Name Role Phone Richard Marshall DO Primary Care Provider [phone] Reason for Visit * Reason Comments Chemotherapy C1/D1 - Mvasi, Taxol , Carboplatin * Episode Based Medications (Routine) - Authorized [...] 10 MG [place] INJECTION, Nicole Wise MD [address] [place] [address] Phone: tel: fax: Hematology/Oncology Treatment, [address] [address] Phone: tel: fax: Referral ID Status Reason Start Date Expiration Date V isits Requested Visits Authorized [id number] Authorized 05/31/2024 09/24/2024 [id number] Encounter Details Date Type Department Care Team (Latest Contact Info) Description 05/16/2024 10:30 AM EDT Hem/Onc Treatment Hematology/Oncolog y Treatment, [address] [address] Shereen, Chair 9 Hem Onc [address] [address] Lung cancer metastatic to bone (HCC)*; Cancer, metastatic to bone (HCC); Encounter for antineoplastic [...] Respimat 2.5-2.5 MCG/ACT Inhalation Aerosol Solution (Tiotropium [place]-Olodaterol )Indications:COPD, severity to be determined ([facility]) Inhale 2 Puffs by mouth daily. 12 [...] by mouth daily with breakfast. 60 Tablet 04/18/20 24 024 Discontin ued(Refil l) OLANZapine 10 MG Oral Tablet (zyPREXA)Indicatio ns:Cancer, [...] No 05/22/2023 Does the household have a [facility] source of income? 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 on file Not on f ile documented as of this encounter Last Filed Vital Signs Vital Sign Reading Time Taken Comments Blood Pressure 119/76 05/16/2024 10:32 AM EDT Pulse 76 05/16/2024 10:32 AM EDT Temperature 36.3 C (97.4 F) 05/16/2024 10:32 AM E DT Respiratory Rate 16 05/16/2024 10:32 AM EDT Oxygen Saturation 94% 05/16/2024 10:32 AM EDT Inhaled Oxygen Concentration - - Weight 79.7 kg (175 lb 9.6 oz) 05/16/2024 10:32 AM EDT Height - - Body Mass Index 30.14 04/20/2024 10:49 AM EDT documented in this encounter Nursing Notes * Alida Titus RN - 05/16/2024 5:04 PM EDT Goals: Patient will remain free from injury. Possible barriers to meeting goals: ambulating with IV pole Stability of the patient: Moderately stable - low risk of patient condition declining or worsening Summary regarding today's goals: Met: pt remained free of harm today Patient tolerated treatment well without any acute issues or problems. She is leaving with and she will return at 4:15 pm tomorrow for Udenyca injection. Patient left facility in stable condition and denied any further needs. * Alida Titus RN - 05/16/2024 12:56 PM EDT Chair 9. Port accessed, no issues. Patient is accompanied by today. Patient presents today for first cycle of chemotherapy. Patient was educated about establishing IV access, giving premeds, taking PRN home medications, process of getting medication from pharmacy, layout of treatment room, use of call iverson, etc. Patient communicated understanding and denied any further questions, concerns, needs. Patient also due to start Zometa infusions Q6 weekly. Patient's calcium is 9.6, phos drawn today from port - 2.9. Patient educated about Zometa infusion as well and process of receiving infusion. Patient communicated understanding regarding this. Patient denies any recent or upcoming dental work. Chemotherapy/Immunotherapy agents: MVASI, CARBOPLATIN, and TAXOL Consent for chemotherapy drug treatment complete, dated, and signed? yes, date - 04/18/2024 Treatment lab parameters met? Yes Has treatment weight changed > than 10%? No Treatment preauthorized? Yes VITALS Filed Vitals: 05/16/24 1032 BP: 119/76 Pulse: 76 Resp: 16 Temp: 36.3 C (97.4 F) TempSrc: Tympanic SpO2: 94% Weight: 79.7 kg (175 lb 9.6 oz) Urine protein: NEGATIVE Patient education completed for treatment? Yes Blood transfusion consent signed and complete? NA Return appointment scheduled? Yes Patient had provider visit today? No - If no provider visit must complete Pretreatment Assessment Functional Status: Functional status at today's visit: [...] potential martinez while using the heat function. PRE-TREATMENT ASSESSMENT: NEURO: denies symptoms CV/RESP: denies symptoms GI/: denies symptoms OTHER: denies any additional symptoms PAIN: 0 Safety and Risk for Injury Patient will remain free from injury. Ensure appropriate safety devices are available. Provide and maintain safe environment. documented in this encounter Plan of Treatment Upcoming Encounters Date Type Department Care Team (Late st Contact Info) Description 06/07/2024 4:30 PM EST Immunization/Injecti on Hematology/Oncology Treatment, [address] [phone] [place], Chair 8 Hem Onc [address] [place] [address] 06/27/2024 10:10 AM EST Laboratory Laboratory [facility] [address] [place] [address] [place], Lab [address] [facility] [place] [address] 06/27/2024 10:30 AM EST Office Visit Hematology/Oncology [facility] [address] [place] [phone] Nicole Vinson MD [address] [place] [address] [place] [phone] 06/27/2024 11:15 AM EST Hem/Onc Treatment Hematology/Oncology Treatment, [address] [address] Shereen, Chair 4 Hem Onc Scenery [address] [place], [place] [address] 06/28/2024 8:30 AM EST Office Visit Ophthalmology, [facility] [address] [place] [address] Anthony Grey, DO [address] [place] [address] 07/12/2024 8:45 AM EST Imaging Radiology [facility] 1st Floor, [place] 132 [facility] [place] [address] 03/10/2025 10:00 AM EDT Office Visit Sleep Disorders Ctr [facility] 132 [facility] [place] [phone] Margie Gutierrez, DO [address] [place] [address] Health Maintenance Due Date Last Done Comments [...] this encounter Medical Devices Implanted Type Area Inventory Taker Device Identifier Shelf Expiration Date Model / Serial / Lot Port Implant W8f Poly Cath - [id number] Implanted:Qty : 1 on 04/20/2024 by Nathan Hardwick MD at [facility] Right: Chest CR BARD : PERIPHERAL VASCULAR [id number] 06/25/2025 [id number] / / [id number] documented as of this encounter Procedures Procedure Name Priority Date/Time Associated Diagnosis Comments PHOSPHORUS STAT 05/16/2024 10:58 AM EDT Lung cancer metastatic to bone (HCC) documented in this encounter Results * PHOSPHORUS (05/16/2024 10:58 AM EDT) Phosphorus 2.9 2.5 - 4.8 mg/dL 05/16/2024 11:24 AM EDT [facility] 56-02 Blood Venous blood specimen / Unknown Central Line / Unknown 05/16/2024 10:58 AM EDT 05/16/2024 11:01 AM EDT us Nicole Vinson MD LAB BLOOD OR DERABLES Final Result [facility] [address] [place] [address] documented in this encounter Visit Diagnoses Diagnosis [...] weight), IV Piggyback, ONCE, 1 dose, On Thu05/16/24 at 1145, Administer over 30 MinutesIndications:Lung cancer metastatic to bone (HCC),Cancer, metastatic to bone (HCC),Encounter for antineoplastic chemotherapy,Prevention of chemotherapy-induced neutropenia Start Infusion 05/16/2024 11:55 AM EDT 1,100 mg 210 mL/hr CARBOplatin (Paraplatin) 659 mg in D5W 250 mL infusion 659 mg (rounded from 659.4 mg, Target AUC = 6), IV Piggyback, at 510 mL/hr Administer over 30 Minutes, PROTECT FROM LIGHT, ONCE, 1 dose, On Thu05/16/24 at 1245Indications:Lung cancer metastatic to bone (HCC),Cancer, metastatic to bone (HCC),Encounter for antineoplastic chemotherapy,Prevention of chemotherapy-induced neutropenia Start Infusion 05/16/2024 3:44 PM EDT 659 mg 510 mL/hr diphenhydrAMINE (Benadryl) cap 50 mg 50 mg, Oral, ONCE, On Thu05/16/24 at 1130, For 1 doseIndications:Lung cancer metastatic to bone (HCC),Cancer, metastatic to bone (HCC),Encounter for antineoplastic chemotherapy,Prevention of chemotherapy-induced neutropenia Given 05/16/2024 11:08 AM EDT 50 mg Famotidine (Pepcid) tab 20 mg 20 mg, Oral, ONCE, On Thu05/16/24 at 1130, For 1 doseIndications:Lung cancer metastatic to bone (HCC),Cancer, metastatic to bone (HCC),Encounter for antineoplastic chemotherapy,Prevention of chemotherapy-induced neutropenia Given 05/16/2024 11:19 AM EDT 20 mg Fosaprepitant Dimeglumine (Emend) 150 mg, ondansetron (Zofran) 16 mg, dexamethasone sodium phosphate 12 mg in NSS 250 mL Infusion 150 mg, IV Piggyback, ONCE, 1 dose, On Thu05/16/24 at 1215, Administer over 30 Minutes, Infuse over 30 minutes. Give 30 minutes prior to chemotherapy.Indications:L arlette cancer metastatic to bone (HCC),Cancer, metastatic to bone (HCC),Encounter for antineoplastic chemotherapy,Prevention of chemotherapy-induced neutropenia Start Infusion 05/16/2024 11:10 AM EDT 150 mg 538.4 mL/hr hEParin 100 UNIT/ML Lock Flush inj 500 Units 500 Units (5 mL), IV Lock, PRN Other, IV Flush, Starting on Thu05/16/24 at 1101, Until Thu05/16/24 at 2106, For 24 hours, Do not flush if lock, PICC, or central line not in place; IV infusing or unable to flush.Indications:Lung cancer metastatic to bone (HCC),Cancer, metastatic to bone (HCC),Encounter for antineoplastic chemotherapy,Prevention of chemotherapy-induced neutropenia Given 05/16/2024 4:42 PM EDT 500 Units NSS infusion Intravenous, at 50 mL/hr, PRN, Starting on Thu05/16/24 at 1215, Until Thu05/16/24 at 2106, Maintenance lineIndications:Lung cancer metastatic to bone (HCC),Cancer, metastatic to bone (HCC),Encounter for antineoplastic chemotherapy,Prevention of chemotherapy-induced neutropenia Start Infusion 05/16/2024 11:08 AM EDT 50 mL/hr PACLitaxel (Taxol) 368 mg in NSS 500 mL infusion 368 mg (200 mg/m2 1.84 m2 Treatment Plan BSA from Recorded weight), IV Piggyback, ONCE, 1 dose, On Thu05/16/24 at 1245, Administer over 180 Minutes, Administer through 0.22 micron low protein binding filter!Indications:Lung cancer metastatic to bone (HCC),Cancer, metastatic to bone (HCC),Encounter for antineoplastic chemotherapy,Prevention of chemotherapy-induced neutropenia Start Infusion 05/16/2024 12:40 PM EDT 368 mg 170 mL/hr sodium chloride 0.9 % flush central line 10 mL 10 mL, IV Push, PRN Other, IV Flush, Starting on Thu05/16/24 at 1101, Until Thu05/16/24 at 2106, For 24 hours, Do not flush if lock, PICC, or central line not in place; IV infusing or unable to flush.Indications:Lung cancer metastatic to bone (HCC),Cancer, metastatic to bone (HCC),Encounter for antineoplastic chemotherapy,Prevention of chemotherapy-induced neutropenia Given 05/16/2024 4:42 PM EDT 10 mL Zoledronic Acid (Zometa) 4 mg in 100 mL PREMIX ivpb 4 mg, IV Piggyback, ONCE, 1 dose, On Thu05/16/24 at 1230Indications:Lung cancer metastatic to bone (HCC) Start Infusion 05/16/2024 4:19 PM EDT 4 mg 400 mL/hr documented in this encounter Care Teams Solar Energy Systems Designer Relationship Specialty Start Date End Date Richard Marshall DO [address] [place] [address] [place] [address] PCP - General Family Medicine 08/26/22 documented as of this encounter
--- OUTSIDE RECORDS SUMMARY | 2024-08-11 03:34 | External Medical Summary | Summary of Care ---
Author Name Unknown Organization [facility] Address [address] [facility] [place] [address] Phone [phone] Care Team Providers Care Regasification Plant Operator Name Role Phone Richard Marshall DO Primary Care Provider [phone] Reason for Visit * Reason Comments Chemotherapy [...] MG MS INJECTION, Nicole Wise MD [address] [place] [address] Phone: tel: fax: Hematology/Oncology [address], [address] [address] Phone: tel: fax: Referral ID Status Reason Start Date Expiration Date V isits Requested Visits Authorized [id number] Authorized 05/31/2024 09/24/2024 [id number] Encounter Details Date Type Department Care Team (Latest Contact Info) Description 05/16/2024 10:30 AM EDT Hem/Onc Treatment Hematology/Oncolog y Treatment, [address] [address] hSereen, Chair 9 Hem Onc [address] [address] Lung cancer metastatic to bone (HCC)*; Cancer, [...] 2.5-2.5 MCG/ACT Inhalation Aerosol Solution (Tiotropium [place]-Olodaterol )Indications:COPD, severity to be determined ([facility]) Inhale 2 Puffs by mouth [...] No 05/22/2023 Does the household have a [facility] services[facility] source of income? 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 Patient communicated understanding and denied any [...] 4:30 PM EST Immunization/Injecti on Hematology/Oncology Treatment, [address] [phone] [place], Chair 8 Hem Onc [address] [place] [address] 06/27/2024 10:10 AM EST Laboratory Laboratory [facility] [address] [place] [address] [place], Lab [address] [facility] [place] [address] 06/27/2024 10:30 AM EST Office Visit Hematology/Oncology [facility] [address] [place] [phone] Nicole Vinson MD [address] [place] [address] [place] [phone] 06/27/2024 11:15 AM EST Hem/Onc Treatment Hematology/Oncology Treatment, [address] [address] Shereen, Chair 4 Hem Onc Scenery [address] [place], [place] [address] 06/28/2024 8:30 AM EST Office Visit Ophthalmology, [facility] [address] [place] [address] Anthony Grey, DO [address] [place] [address] 07/12/2024 8:45 AM EST Imaging Radiology [facility] 1st Floor, [place] 132 [facility] [place] [address] 03/10/2025 10:00 AM EDT Office Visit Sleep Disorders Ctr [facility] 132 [facility] [place] [phone] Margie Gutierrez, DO [address] [place] [address] Health Maintenance Due Date Last Done Comments [...] this encounter Medical Devices Implanted Type Area Nursing Surgical Services Director Device Identifier Shelf Expiration Date Model / Serial / Lot Port Implant W8f Poly Cath - [id number] Implanted:Qty : 1 on 04/20/2024 by Nathan Hardwick MD at [facility] Right: Chest CR BARD : PERIPHERAL VASCULAR [id number] 06/25/2025 [id number] / / [id number] documented as of this encounter Procedures Procedure Name Priority Date/Time Associated Diagnosis Comments PHOSPHORUS STAT 05/16/2024 10:58 AM EDT Lung cancer metastatic to bone (HCC) documented in this encounter Results * PHOSPHORUS (05/16/2024 10:58 AM EDT) Phosphorus 2.9 2.5 - 4.8 mg/dL 05/16/2024 11:24 AM EDT [facility] 56-02 Blood Venous blood specimen / Unknown Central Line / Unknown 05/16/2024 10:58 AM EDT 05/16/2024 11:01 AM EDT us Nicole Vinson MD LAB BLOOD OR DERABLES Final Result [facility] 56-[address] [place] [address] documented in this encounter Visit Diagnoses Diagnosis [...] mL/hr documented in this encounter Care Teams Regasification Plant Operator Relationship Specialty Start Date End Date Richard Marshall DO [address] [place] [address] [place] [address] PCP - General Family Medicine 08/26/22 documented as of this encounter
--- OUTSIDE RECORDS SUMMARY | 2024-08-11 03:34 | External Medical Summary | Summary of Care ---
Author Name Unknown Organization [facility] Address [address] [facility] [place] [address] Phone [phone] Care Team Providers Care Ground Support Agent Name Role Phone Richard Marshall DO Primary Care Provider [phone] Reason for Visit * Reason Comments Chemotherapy C1/D1 - Mvasi, Taxol , Carboplatin * Episode Based Medications (Routine) - Authorized Specialty Diagnoses / Procedures Referred By Contac t Referred To Contact Diagnoses Cancer, metastatic to bone (HCC) Lung cancer metastatic to bone (HCC) Encounter for antineoplastic chemotherapy Prevention of chemotherapy-induced neutropenia Procedures MT CARBOPLATIN INJECTION MT FOSAPREPITANT INJECTION MT INJ., ZIRABEV, 10 MG MT PACLITAXEL INJECTION MT INJECTION, UDENYCA 0.5 MG MT INJ MVASI 10 MG MT INJECTION, Nicole Wise MD [address] [place] [address] Phone: tel: fax: Hematology/Oncology Treatment, [address] [address] Phone: tel: fax: Referral ID Status Reason Start Date Expiration Date V isits Requested Visits Authorized [id number] Authorized 05/31/2024 09/24/2024 999 [id number] Encounter Details Date Type Department Care Team (Latest Contact Info) Description 05/16/2024 10:30 AM EDT Hem/Onc Treatment Hematology/Oncolog y Treatment, [address] [address] Shereen, Chair 9 Hem Onc [address] [address] Lung cancer metastatic to bone (HCC)*; Cancer, [...] Respimat 2.5-2.5 MCG/ACT Inhalation Aerosol Solution (Tiotropium [place]-Olodaterol )Indications:COPD, severity to be determined ([facility]) Inhale 2 Puffs by mouth daily. 12 [...] No 05/22/2023 Does the household have a [facility] source of income? 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 Not on file Not [...] 4:30 PM EST Immunization/Injecti on Hematology/Oncology Treatment, [address] [phone] Park, Chair [address] Hem On[address] [place] [address] 06/27/2024 10:10 AM EST Laboratory Laboratory [facility] [address] [place] [address] Park, Lab [address] [facility] [place] [address] 06/27/2024 10:30 AM EST Office Visit Hematology/Oncology [facility] [address] [place] [address] Nicole Vinson MD [address] [place] [address] [place] [address] 06/27/2024 11:15 AM EST Hem/Onc Treatment Hematology/Oncology Treatment, [address] [address] Shereen, Chair 4 Hem Onc Scenery [address] [place], [place] [address] 06/28/2024 8:30 AM EST Office Visit Ophthalmology, [facility] [address] [place] [address] Anthony Grey, DO [address] [place] [address] 07/12/2024 8:45 AM EST Imaging Radiology [facility] 1st Floor, [place] 132 [facility] [place] [address] 03/10/2025 10:00 AM EDT Office Visit Sleep Disorders Ctr [facility] [address] [facility] [place] [phone] Margie Gutierrez, DO [address] [place] [address] Health Maintenance Due Date Last Done Comments [...] this encounter Medical Devices Implanted Type Area Convict Guard Device Identifier Shelf Expiration Date Model / Serial / Lot Port Implant W8f Poly Cath - [id number] Implanted:Qty : 1 on 04/20/2024 by Nathan Hardwick MD at [facility] Right: Chest CR BARD : PERIPHERAL VASCULAR [id number] 06/25/2025 [id number] / / [id number] documented as of this encounter Procedures Procedure Name Priority Date/Time Associated Diagnosis Comments PHOSPHORUS STAT 05/16/2024 10:58 AM EDT Lung cancer metastatic to bone (HCC) documented in this encounter Results * PHOSPHORUS (05/16/2024 10:58 AM EDT) Phosphorus 2.9 2.5 - 4.8 mg/dL 05/16/2024 11:24 AM EDT [facility] 56-02 Blood Venous blood specimen / Unknown Central Line / Unknown 05/16/2024 10:58 AM EDT 05/16/2024 11:01 AM EDT us Nicole Vinson MD LAB BLOOD OR DERABLES Final Result [facility] 56-[address] [place] [address] documented in this encounter Visit Diagnoses Diagnosis [...] mL/hr documented in this encounter Care Teams Ground Support Agent Relationship Specialty Start Date End Date Richard Marshall DO [address] [place] [address] [place] [address] PCP - General Family Medicine 08/26/22 documented as of this encounter
--- OUTSIDE RECORDS SUMMARY | 2024-08-11 03:34 | External Medical Summary | Summary of Care ---
Author Name Unknown Organization [facility] Address [address] [facility] [place] [address] Phone [phone] Care Team Providers Care Narcotics Investigator Name Role Phone Richard Marshall DO Primary Care Provider [phone] Reason for Visit * Reason Comments Chemotherapy C1/D1 - Mvasi, Taxol , Carboplatin * Episode Based Medications (Routine) - Authorized Specialty Diagnoses / Procedures Referred By Contac t Referred To Contact Diagnoses Cancer, metastatic to bone (HCC) Lung cancer metastatic to bone (HCC) Encounter for antineoplastic chemotherapy Prevention of chemotherapy-induced neutropenia Procedures [place] CARBOPLATIN INJECTION [place] FOSAPREPITANT INJECTION [place] INJ., ZIRABEV, 10 MG [place] PACLITAXEL INJECTION [place] INJECTION, UDENYCA 0.5 MG [place] INJ MVASI 10 MG [place] INJECTION, Nicole Wise MD [address] [place] [address] Phone: tel: fax: Hematology/Oncology Treatment, [address] [address] Phone: tel: fax: Referral ID Status Reason Start Date Expiration Date V isits Requested Visits Authorized [id number] Authorized 05/31/2024 09/24/2024 [id number] Encounter Details Date Type Department Care Team (Latest Contact Info) Description 05/16/2024 10:30 AM EDT Hem/Onc Treatment Hematology/Oncolog y Treatment, [address] [address] Shereen, Chair 9 Hem Onc [address] [address] Lung cancer metastatic to bone (HCC)*; Cancer, [...] Respimat 2.5-2.5 MCG/ACT Inhalation Aerosol Solution (Tiotropium [place]-Olodaterol )Indications:COPD, severity to be determined ([facility]) Inhale 2 Puffs by mouth daily. 12 [...] No 05/22/2023 Does the household have a [facility] source of income? 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 Not on file [...] 4:30 PM EST Immunization/Injecti on Hematology/Oncology Treatment, [address] [phone] Park, Chair 8 Hem Onc [address] [place] [address] 06/27/2024 10:10 AM EST Laboratory Laboratory [facility] [address] [place] [address] Park, Lab [address] [facility] [place] [address] 06/27/2024 10:30 AM EST Office Visit Hematology/Oncology [facility] [address] [place] [phone] Nicole Vinson MD [address] [place] [address] [place] [address] 06/27/2024 11:15 AM EST Hem/Onc Treatment Hematology/Oncology Treatment, [address] [address] Shereen, Chair 4 Hem Onc Scenery [address] [place], [place] [address] 06/28/2024 8:30 AM EST Office Visit Ophthalmology, [facility] [address] [place] [address] Anthony Grey, DO [address] [place] [address] 07/12/2024 8:45 AM EST Imaging Radiology [facility] 1st Floor, [place] 132 [facility] [place] [address] 03/10/2025 10:00 AM EDT Office Visit Sleep Disorders Ctr [facility] 132 [facility] [place] [phone] Margie Gutierrez, DO [address] [place] [address] Health Maintenance Due Date Last Done Comments [...] this encounter Medical Devices Implanted Type Area Oilfield Plant And Field Operator Device Identifier Shelf Expiration Date Model / Serial / Lot Port Implant W8f Poly Cath - [id number] Implanted:Qty : 1 on 04/20/2024 by Nathan Hardwick MD at [facility] Right: Chest CR BARD : PERIPHERAL VASCULAR [id number] 06/25/2025 [id number] / / [id number] documented as of this encounter Procedures Procedure Name Priority Date/Time Associated Diagnosis Comments PHOSPHORUS STAT 05/16/2024 10:58 AM EDT Lung cancer metastatic to bone (HCC) documented in this encounter Results * PHOSPHORUS (05/16/2024 10:58 AM EDT) Phosphorus 2.9 2.5 - 4.8 mg/dL 05/16/2024 11:24 AM EDT [facility] 56-02 Blood Venous blood specimen / Unknown Central Line / Unknown 05/16/2024 10:58 AM EDT 05/16/2024 11:01 AM EDT us Nicole Vinson MD LAB BLOOD OR DERABLES Final Result [facility] 56-[address] [place] [address] documented in this encounter Visit Diagnoses Diagnosis [...] mL/hr documented in this encounter Care Teams Narcotics Investigator Relationship Specialty Start Date End Date Richard Marshall DO [address] [place] [address] [place] [address] PCP - General Family Medicine 08/26/22 documented as of this encounter
--- OUTSIDE RECORDS SUMMARY | 2024-08-11 03:35 | External Medical Summary | Summary of Care ---
Author Name Unknown Organization [facility] Address [address] [facility] [place] [address] Phone [phone] Care Team Providers Care Structural Fitter Name Role Phone Richard Marshall DO Primary Care Provider [phone] Reason for Visit * Reason Comments Follow Up Encounter Details Date Type Department Care Team (Late st Contact Info) Description 06/06/2024 9:30 AM EST Office Visit Hematology/Oncology [facility] [place] [address] [facility] [address] Nicole Vinson MD [address] [place] [address] Lung cancer metastatic to bone (HCC)*; Pain from bone metastases (HCC); Cancer, metastatic to bone (HCC); Lesion of thoracic vertebra; Encounter for antineoplastic chemotherapy; Prevention of chemotherapy-induced [...] Respimat 2.5-2.5 MCG/ACT Inhalation Aerosol Solution (Tiotropium [place]-Olodaterol )Indications:COPD, severity to be determined (HCC) Inhale [...] with breakfast. 60 Tablet 05/17/20 24 Active Cephalexin 500 MG Oral Capsule [...] Sign Reading Time Taken Comments Blood Pressure 114/74 06/06/2024 9:36 AM EST Pulse 77 06/06/2024 9:36 AM EST Temperature 37 C (98.6 F) 06/06/2024 9:36 AM EST Respiratory Rate - - Oxygen Saturation 95% 06/06/2024 9:36 AM EST Inhaled Oxygen Concentration - - Weight 79.4 kg (175 lb 1.6 oz) 06/06/2024 9:36 A M EST Height - - Body Mass Index 30.06 04/20/2024 10:49 AM EDT documented in this encounter Progress Notes * Nicole Vinson MD - 06/06/2024 9:53 AM EST Date of visit: 06/06/2024 Chief Complaint Patient presents with Follow Up Subjective Pt presents for follow up on 06/06/2024 re: Metastatic zko-tuarn-ysdb lung cancer (adenocarcinoma) with LN and osseous [...] smoking history quit 10 years ago, 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 Postsurgical changes noted in [...] pulm, Dr. Olivia on 03/31/2024. [facility], pt wants a closer ([facility]). GI revaluation for lower para [...] Capsule 0 Vitamin D (Cholecalciferol) 50 MCG (2000 UT) Oral Capsule Take by mouth at bedtime. Ferrous Sulfate 325 (65 Fe) MG Oral Tablet (Feosol) Take 1 Tablet by mouth at bedtime. Stiolto Respimat 2.5-2.5 MCG/ACT Inhalation Aerosol Solution (Tiotropium [place]-Olodaterol) Inhale2 Puffs by mouth daily. 12 g [...] PRN Anthony Grey, DO 1.5 mg at 04/26/24 0850 Review of patient's allergies indicates: Allergen Reactions [...] a significant past medical history of recurrent xvr-ajvpr-vdin lung cancer (adenocarcinoma) that has recurrent several times (>3 times per pt- received treatment in [facility]), status post multiple surgical interventions between [...] po QID x 10 days for cellulitis Nicole Vinson MD documented in this encounter Nursing Notes * Adrianna Soto MED ASSIST - 06/06/2024 9:37 AM EST Patient identifed by name and [...] it for you? ALREADY ACTIVE Filed Vitals: 06/06/24 0936 BP: 114/74 Pulse: 77 Temp: 37 C (98.6 F) TempSrc: Tympanic SpO2: 95% Weight: 79.4 kg (175 lb 1.6 oz) Patient was instructed to [...] 4:30 PM EST Immunization/Injecti on Hematology/Oncology Treatment, [place] [address] [place] [phone] Shereen Chair 8 Hem Onc [facility] [place] [address] 06/27/2024 10:10 AM EST Laboratory Laboratory [address] [address] [place] [phone] Shereen, Lab Scenery [address] [place] [address] 06/27/2024 10:30 AM EST [facility] [place] [address] [place] [phone] Nicole Vinson MD [address] [place] [address] [place] [phone] 06/27/2024 11:15 AM EST Hem/Onc Treatment Hematology/Oncology Treatment, [place] [address] [place] [phone] Shereen, Chair 4 Hem Onc Scenery [address] [place] [address] 06/28/2024 8:30 AM EST Office Visit Ophthalmology, [facility] [address] [place] [address] Anthony Grey DO [address] [place] [address] 07/12/2024 8:45 AM EST Imaging Radiology [facility]st [facility] [address] [place] [address] 03/10/2025 10:00 AM EDT Office Visit Sleep Disorders Ctr [facility] [address] [place] [phone] Margie Gutierrez, [address] [place] [address] Health Maintenance Due Date Last Done Comments [...] this encounter Medical Devices Implanted Type Area Campaign Marketing Specialist Device Identifier Shelf Expiration Date Model / Serial / Lot Port Implant W8f Poly Cath - [id number] Implanted:Qty : 1 on 04/20/2024 by Nathan Hardwick MD at [facility] Right: Chest CR BARD : PERIPHERAL VASCULAR [id number] 06/25/2025 [id number] / / [id number] documented as of this encounter Visit Diagnoses Diagnosis Lung cancer metastatic to bone (HCC)- Primary Pain from bone metastases (HCC) Cancer, metastatic to bone (HCC) Secondary malignant neoplasm of bone and bone marrow Lesion of thoracic vertebra Encounter for antineoplastic chemotherapy Prevention of chemotherapy-induced neutropenia documented in this encounter Care Teams Structural Fitter Relationship Specialty Start Date End Date Richard Marshall DO 16 [place] [address] PCP - General Family Medicine 08/26/22 documented as of this encounter
--- OUTSIDE RECORDS SUMMARY | 2024-08-11 03:35 | External Medical Summary | Summary of Care ---
Author Name Unknown Organization [facility] Address [address] [facility] [place] [address] Phone [phone] Care Team Providers Care Hammer Mill Operator Name Role Phone Richard Marshall DO Primary Care Provider [phone] Reason for Visit * Reason Comments Chemotherapy [...] 10 MG [place] INJECTION, Nicole Wise MD [address] [place] [address] Phone: tel: fax: Hematology/Oncology Treatment, [address] [address] Phone: tel: fax: Referral ID Status Reason Start Date Expiration Date V isits Requested Visits Authorized [id number] Authorized 05/31/2024 09/24/[phone] Encounter Details Date Type Department Care Team (Latest Contact Info) Description 05/16/2024 10:30 AM EDT Hem/Onc Treatment Hematology/Oncolog y Treatment, [address] [address] Shereen, Chair 9 Hem Onc [address] [address] Lung cancer metastatic to bone (HCC)*; Cancer, [...] Respimat 2.5-2.5 MCG/ACT Inhalation Aerosol Solution (Tiotropium [place]-Olodaterol )Indications:COPD, severity to be determined ([facility]) Inhale 2 Puffs by mouth [...] depressive disorder, recurrent episode, mo derate 10/28/2021 RKYSTA (generalized anxiety disorder) 10/28/2021 History of tobacco [...] No 05/22/2023 Does the household have a [facility] source of income? 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 file [...] 4:30 PM EST Immunization/Injecti on Hematology/Oncology Treatment, [address] [phone] Park, Chair 8 Hem Onc [address] [place] [address] 06/27/2024 10:10 AM EST Laboratory Laboratory [facility] [address] [place] [address] Park, Lab [address] [facility] [place] [address] 06/27/2024 10:30 AM EST Office Visit Hematology/Oncology [facility] [address] [place] [phone] Nicole Vinson MD [address] [place] [address] [place] [address] 06/27/2024 11:15 AM EST Hem/Onc Treatment Hematology/Oncology Treatment, [address] [address] Shereen, Chair 4 Hem Onc Scenery [address] [place], [place] [address] 06/28/2024 8:30 AM EST Office Visit Ophthalmology, [facility] [address] [place] [address] Anthony Grey, DO [address] [place] [address] 07/12/2024 8:45 AM EST Imaging Radiology [facility] 1st Floor, [place] 132 [facility] [place] [address] 03/10/2025 10:00 AM EDT Office Visit Sleep Disorders Ctr [facility] 132 [facility] [place] [phone] Margie Gutierrez, DO [address] [place] [address] Health Maintenance Due Date Last Done Comments [...] this encounter Medical Devices Implanted Type Area Corporate Security Manager Device Identifier Shelf Expiration Date Model / Serial / Lot Port Implant W8f Poly Cath - [id number] Implanted:Qty : 1 on 04/20/2024 by Nathan Hardwick MD at [facility] Right: Chest CR BARD : PERIPHERAL VASCULAR [id number] 06/25/2025 [id number] / / [id number] documented as of this encounter Procedures Procedure Name Priority Date/Time Associated Diagnosis Comments PHOSPHORUS STAT 05/16/2024 10:58 AM EDT Lung cancer metastatic to bone (HCC) documented in this encounter Results * PHOSPHORUS (05/16/2024 10:58 AM EDT) Phosphorus 2.9 2.5 - 4.8 mg/dL 05/16/2024 11:24 AM EDT [facility] 56-02 Blood Venous blood specimen / Unknown Central Line / Unknown 05/16/2024 10:58 AM EDT 05/16/2024 11:01 AM EDT us Nicole Vinson MD LAB BLOOD OR DERABLES Final Result [facility] 56-[address] [place] [address] documented in this encounter Visit Diagnoses Diagnosis [...] mL/hr documented in this encounter Care Teams Hammer Mill Operator Relationship Specialty Start Date End Date Richard Marshall DO [address] [place] [address] [place] [address] PCP - General Family Medicine 08/26/22 documented as of this encounter
--- OUTSIDE RECORDS SUMMARY | 2024-08-11 03:35 | External Medical Summary | Summary of Care ---
Author Name Unknown Organization [facility] Address [address] [facility] [place] [address] Phone [phone] Care Team Providers Care Woolen Mill Utility Worker Name Role Phone Richard Marshall DO Primary Care Provider [phone] Reason for Visit * Reason Comments Chemotherapy [...] 10 MG ID INJECTION, Nicole Wise MD [address] [place] [address] Phone: tel: fax: Hematology/Oncology Treatment, [address] [address] Phone: tel: fax: Referral ID Status Reason Start Date Expiration Date V isits Requested Visits Authorized [id number] Authorized 05/31/2024 09/24/2024 999 [id number] Encounter Details Date Type Department Care Team (Latest Contact Info) Description 05/16/2024 10:30 AM EDT Hem/Onc Treatment Hematology/Oncolog y Treatment, [address] [address] Shereen, Chair 9 Hem Onc [address] [address] Lung cancer metastatic to bone (HCC)*; Cancer, [...] Respimat 2.5-2.5 MCG/ACT Inhalation Aerosol Solution (Tiotropium [place]-Olodaterol )Indications:COPD, severity to be determined ([facility]) Inhale 2 Puffs by mouth daily. [...] No 05/22/2023 Does the household have a [facility] ranch[facility] source of income? 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 Not on file [...] 4:30 PM EST Immunization/Injecti on Hematology/Oncology Treatment, [address] [phone] Park, Chair 8 Hem Onc [address] [place] [address] 06/27/2024 10:10 AM EST Laboratory Laboratory [facility] [address] [place] [address] Park, Lab [address] [facility] [place] [address] 06/27/2024 10:30 AM EST Office Visit Hematology/Oncology [facility] [address] [place] [phone] Nicole Vinson MD [address] [place] [address] [place] [address] 06/27/2024 11:15 AM EST Hem/Onc Treatment Hematology/Oncology Treatment, [address] [address] Shereen, Chair 4 Hem Onc Scenery [address] [place], [place] [address] 06/28/2024 8:30 AM EST Office Visit Ophthalmology, [facility] [address] [place] [address] Anthony Grey, DO [address] [place] [address] 07/12/2024 8:45 AM EST Imaging Radiology [facility] 1st Floor, [place] 132 [facility] [place] [address] 03/10/2025 10:00 AM EDT Office Visit Sleep Disorders Ctr [facility] 132 [facility] [place] [phone] Margie Gutierrez, DO [address] [place] [address] Health Maintenance Due Date Last Done Comments [...] this encounter Medical Devices Implanted Type Area High School Coordinator Device Identifier Shelf Expiration Date Model / Serial / Lot Port Implant W8f Poly Cath - [id number] Implanted:Qty : 1 on 04/20/2024 by Nathan Hardwick MD at [facility] Right: Chest CR BARD : PERIPHERAL VASCULAR [id number] 06/25/2025 [id number] / / [id number] documented as of this encounter Procedures Procedure Name Priority Date/Time Associated Diagnosis Comments PHOSPHORUS STAT 05/16/2024 10:58 AM EDT Lung cancer metastatic to bone (HCC) documented in this encounter Results * PHOSPHORUS (05/16/2024 10:58 AM EDT) Phosphorus 2.9 2.5 - 4.8 mg/dL 05/16/2024 11:24 AM EDT [facility] 56-02 Blood Venous blood specimen / Unknown Central Line / Unknown 05/16/2024 10:58 AM EDT 05/16/2024 11:01 AM EDT us Nicole Vinson MD LAB BLOOD OR DERABLES Final Result [facility] 56-[address] [place] [address] documented in this encounter Visit Diagnoses Diagnosis [...] mL/hr documented in this encounter Care Teams Woolen Mill Utility Worker Relationship Specialty Start Date End Date Richard Marshall DO [address] [place] [address] [place] [address] PCP - General Family Medicine 08/26/22 documented as of this encounter
--- OUTSIDE RECORDS SUMMARY | 2024-08-11 03:35 | External Medical Summary | Summary of Care ---
Author Name Unknown Organization [facility] Address [address] [facility] [place] [address] Phone [phone] Care Team Providers Care Hook Puller Name Role Phone Richard Marshall DO Primary Care Provider [phone] Reason for Visit * Reason Comments Chemotherapy C1/D1 - Mvasi, Taxol , Carboplatin * Episode Based Medications (Routine) - Authorized Specialty Diagnoses / Procedures Referred By Contac t Referred To Contact Diagnoses Cancer, metastatic to bone (HCC) Lung cancer metastatic to bone (HCC) Encounter for antineoplastic chemotherapy Prevention of chemotherapy-induced neutropenia Procedures PA CARBOPLATIN INJECTION PA FOSAPREPITANT INJECTION PA INJ., ZIRABEV, 10 MG PA PACLITAXEL INJECTION PA INJECTION, UDENYCA 0.5 MG PA INJ MVASI 10 MG PA INJECTION, Nicole Wise MD [address] [place] [address] Phone: tel: fax: Hematology/Oncology Treatment, [address] [address] Phone: tel: fax: Referral ID Status Reason Start Date Expiration Date V isits Requested Visits Authorized [id number] Authorized 05/31/2024 09/24/2024 [id number] Encounter Details Date Type Department Care Team (Latest Contact Info) Description 05/16/2024 10:30 AM EDT Hem/Onc Treatment Hematology/Oncolog y Treatment, [address] [address] Shereen, Chair 9 Hem Onc [address] [address] Lung cancer metastatic to bone (HCC)*; Cancer, [...] Respimat 2.5-2.5 MCG/ACT Inhalation Aerosol Solution (Tiotropium [place]-Olodaterol )Indications:COPD, severity to be determined ([facility]) Inhale 2 Puffs by mouth daily. 12 [...] No 05/22/2023 Does the household have a [facility] source of income? 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 file [...] 4:30 PM EST Immunization/Injecti on Hematology/Oncology Treatment, [address] [phone] Park, Chair 8 Hem Onc [address] [place] [address] 06/27/2024 10:10 AM EST Laboratory Laboratory [facility] [address] [place] [address] [place], Lab [address] [facility] [place] [address] 06/27/2024 10:30 AM EST Office Visit Hematology/Oncology [facility] [address] [place] [phone] Nicloe Vinson MD [address] [place] [address] [place] [address] 06/27/2024 11:15 AM EST Hem/Onc Treatment Hematology/Oncology Treatment, [address] [address] Shereen, Chair 4 Hem Onc Scenery [address] [place], [place] [address] 06/28/2024 8:30 AM EST Office Visit Ophthalmology, [facility] [address] [place] [address] Anthony Grey, DO [address] [place] [address] 07/12/2024 8:45 AM EST Imaging Radiology [facility] 1st Floor, [place] 132 [facility] [place] [address] 03/10/2025 10:00 AM EDT Office Visit Sleep Disorders Ctr [facility] 132 [facility] [place] [phone] Margie Gutierrez, DO [address] [place] [address] Health Maintenance Due Date Last Done Comments [...] this encounter Medical Devices Implanted Type Area Financial Advisor Device Identifier Shelf Expiration Date Model / Serial / Lot Port Implant W8f Poly Cath - [id number] Implanted:Qty : 1 on 04/20/2024 by Nathan Hardwick MD at [facility] Right: Chest CR BARD : PERIPHERAL VASCULAR [id number] 06/25/2025 [id number] / / [id number] documented as of this encounter Procedures Procedure Name Priority Date/Time Associated Diagnosis Comments PHOSPHORUS STAT 05/16/2024 10:58 AM EDT Lung cancer metastatic to bone (HCC) documented in this encounter Results * PHOSPHORUS (05/16/2024 10:58 AM EDT) Phosphorus 2.9 2.5 - 4.8 mg/dL 05/16/2024 11:24 AM EDT [facility] 56-02 Blood Venous blood specimen / Unknown Central Line / Unknown 05/16/2024 10:58 AM EDT 05/16/2024 11:01 AM EDT us Nicole Vinson MD LAB BLOOD OR DERABLES Final Result [facility] 56-[address] [place] [address] documented in this encounter Visit Diagnoses Diagnosis [...] mL/hr documented in this encounter Care Teams Hook Puller Relationship Specialty Start Date End Date Richard Marshall DO [address] [place] [address] [place] [address] PCP - General Family Medicine 08/26/22 documented as of this encounter
--- OUTSIDE RECORDS SUMMARY | 2024-08-11 03:35 | External Medical Summary | Summary of Care ---
Author Name Unknown Organization [facility] Address [address] [facility] [place] [address] Phone [phone] Care Team Providers Care Supervisor Inspection Name Role Phone Richard Marshall DO Primary Care Provider [phone] Reason for Visit * Reason Onset Date Comments Medication Refill 06/06/2024 Encounter Details Date Type Department Care Team (Late st Contact Info) Description 06/06/2024 Refill Hematology/Oncology Treatment, [place] [address] [place] [address] Nicole Vinson MD [address] [place] [address] Lung cancer metastatic to bone (HCC)*; Cancer, metastatic to bone (HCC); Encounter for antineoplastic chemotherapy; Prevention of chemotherapy-induced neutropenia Allergies Active Allergy Reactions Criticality Noted Date Comments Iodinated Contrast Media 07/05/2021 "itchy, rash and hives" CT Scan documented as of this encounter (statuses as of 06/06/2024) Medications Vitamin D (Cholecalciferol) 50 MCG (1999) Oral Capsule Take by mouth at bedtime. Active Ferrous Sulfate 325 (65 Fe) MG Oral Tablet (Feosol) Take 1 Tablet by mouth at bedtime. Active Stiolto Respimat 2.5-2.5 MCG/ACT Inhalation Aerosol Solution (Tiotropium [place]-Olodaterol )Indications:COPD, severity to be determined ([facility]) Inhale 2 Puffs by mouth daily. [...] and 4 of chemo. 4 Tablet 06/06/20 Active OLANZapine 10 MG Oral Tablet (zyPREXA)Indicatio [...] as of this encounter (statuses as of 06/06/2024) Active Problems Problem Noted Date Diagnosed Date [...] as of this encounter (statuses as of 06/06/2024) Resolved Problems Problem Noted Date Diagnosed Date Resolved Date COPD, group A, by GOLD 2017 classification 07/07/2022 04/07/2024 Overview: Per COPD GOLD Classification COPD, severity to be determined 07/09/2021 07/10/2022 Overview: Per COPD GOLD Classification documented as of this encounter (statuses as of 06/06/2024) Immunizations Name Administration Dates Next Due Covid-19 [...] 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 file Not on f ile documented as of this encounter Miscellaneous Notes * Telephone Encounter - Mayte Tatum CRNP [...] 4:30 PM EST Immunization/Injecti on Hematology/Oncology Treatment, [place] [address] [place] [phone] [place], Chair 8 Hem Onc Scenery [address] [place], [place] [address] 06/27/2024 10:10 AM EST Laboratory Laboratory [facility] [address] [place], [place] [phone] Shereen, Lab Scenery [address] [place] [address] 06/27/2024 10:30 AM EST Office Visit Hematology/Oncology [facility] [address] [place], [place] [phone] Nicole Vinson MD [address] [place] [address] [place] [phone] 06/27/2024 11:15 AM EST Hem/Onc Treatment Hematology/Oncology Treatment, [address], [place] [phone] Shereen, Chair 4 Hem Onc [facility] 200 [place] [address] 06/28/2024 8:30 AM EST Office Visit Ophthalmology, [facility] 132 [facility] [place] [address] Anthony Grey, DO 132 [facility] [place] [address] 07/12/2024 8:45 AM EST Imaging Radiology [facility] 1st [facility] 132 [facility] [place] [address] 03/10/2025 10:00 AM EDT Office Visit Sleep Disorders Ctr [facility] 132 [facility] [place] [phone] Margie Gutierrez, DO [address] [place] [address] Health Maintenance Due Date Last Done Comments [...] this encounter Medical Devices Implanted Type Area Youth Advocate Device Identifier Shelf Expiration Date Model / Serial / Lot Port Implant W8f Poly Cath - [id number] Implanted:Qty : 1 on 04/20/2024 by Nathan Hardwick MD at [facility] Right: Chest CR BARD : PERIPHERAL VASCULAR [id number] 06/25/2025 [id number] / / [id number] documented as of this encounter Visit Diagnoses Diagnosis Lung cancer metastatic to bone (HCC)- Primary Cancer, metastatic to bone (HCC) Secondary malignant neoplasm of bone and bone marrow Encounter for antineoplastic chemotherapy Prevention of chemotherapy-induced neutropenia documented in this encounter Care Teams Supervisor Inspection Relationship Specialty Start Date End Date Richard Marshall DO [address] [place] [address] PCP - General Family Medicine 08/26/22 documented as of this encounter
--- OUTSIDE RECORDS SUMMARY | 2024-08-11 03:35 | External Medical Summary | Summary of Care ---
Author Name Unknown Organization [facility] Address [address] [facility] [place] [address] Phone [phone] Care Team Providers Care Director Of Laboratory Operations Name Role Phone Richard Marshall DO Primary Care Provider [phone] Reason for Visit * Reason Comments Chemotherapy C1/D1 - Mvasi, Taxol , Carboplatin * Episode Based Medications (Routine) - Authorized Specialty Diagnoses / Procedures Referred By Contac t Referred To Contact Diagnoses Cancer, metastatic to bone (HCC) Lung cancer metastatic to bone (HCC) Encounter for antineoplastic chemotherapy Prevention of chemotherapy-induced neutropenia Procedures [place] CARBOPLATIN INJECTION [place] FOSAPREPITANT INJECTION TN INJ., ZIRABEV, 10 MG TN PACLITAXEL INJECTION TN INJECTION, UDENYCA 0.5 MG TN INJ MVASI 10 MG [place] INJECTION, Nicole Wise MD [address] [place] [address] Phone: tel: fax: Hematology/Oncology Treatment, [address] [address] Phone: tel: fax: Referral ID Status Reason Start Date Expiration Date V isits Requested Visits Authorized [id number] Authorized 05/31/2024 09/24/2024 [id number] Encounter Details Date Type Department Care Team (Latest Contact Info) Description 05/16/2024 10:30 AM EDT Hem/Onc Treatment Hematology/Oncolog y Treatment, [address] [address] Shereen, Chair 9 Hem Onc [address] [address] Lung cancer metastatic to bone (HCC)*; Cancer, metastatic to bone (HCC); Encounter for antineoplastic chemotherapy; Prevention of chemotherapy-induced neutropenia Allergies Active Allergy Reactions Criticality Noted Date Comments Iodinated Contrast Media 07/05/2021 "itchy, rash and hives" CT Scan documented as of this encounter (statuses as of 06/06/2024) Medications Vitamin D (Cholecalciferol) 50 MCG (1999 [place]) Oral Capsule Take by mouth at bedtime. Active Ferrous Sulfate 325 (65 Fe) MG Oral Tablet (Feosol) Take 1 Tablet by mouth at bedtime. Active Stiolto Respimat 2.5-2.5 MCG/ACT Inhalation Aerosol Solution (Tiotropium [place]-Olodaterol )Indications:COPD, severity to be determined ([facility] [...] No 05/22/2023 Does the household have a [facility] source of income? 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 on file [...] 4:30 PM EST Immunization/Injecti on Hematology/Oncology Treatment, [address] [phone] [place], Chair 8 Hem Onc [address] [place] [address] 06/27/2024 10:10 AM EST Laboratory Laboratory [facility] [address] [place] [address] [place], Lab [address] [facility] [place] [address] 06/27/2024 10:30 AM EST Office Visit Hematology/Oncology [facility] [address] [place] [phone] Nicole Vinson MD [address] [place] [address] [place] [address] 06/27/2024 11:15 AM EST Hem/Onc Treatment Hematology/Oncology Treatment, [address] [address] Shereen, Chair 4 Hem Onc Scenery [address] [place], [place] [address] 06/28/2024 8:30 AM EST Office Visit Ophthalmology, [facility] [address] [place] [address] Anthony Grey, DO [address] [place] [address] 07/12/2024 8:45 AM EST Imaging Radiology [facility] 1st Floor, [place] 132 [facility] [place] [address] 03/10/2025 10:00 AM EDT Office Visit Sleep Disorders Ctr [facility] 132 [facility] [place] [phone] Margie Gutierrez, DO [address] [place] [address] Health Maintenance Due Date Last Done Comments [...] this encounter Medical Devices Implanted Type Area Imagery Intelligence Device Identifier Shelf Expiration Date Model / Serial / Lot Port Implant W8f Poly Cath - [id number] Implanted:Qty : 1 on 04/20/2024 by Nathan Hardwick MD at [facility] Right: Chest CR BARD : PERIPHERAL VASCULAR [id number] 06/25/2025 [id number] / / [id number] documented as of this encounter Procedures Procedure Name Priority Date/Time Associated Diagnosis Comments PHOSPHORUS STAT 05/16/2024 10:58 AM EDT Lung cancer metastatic to bone (HCC) documented in this encounter Results * PHOSPHORUS (05/16/2024 10:58 AM EDT) Phosphorus 2.9 2.5 - 4.8 mg/dL 05/16/2024 11:24 AM EDT [facility] 56-02 Blood Venous blood specimen / Unknown Central Line / Unknown 05/16/2024 10:58 AM EDT 05/16/2024 11:01 AM EDT us Nicole Vinson MD LAB BLOOD OR DERABLES Final Result [facility] 56-[address] [place] [address] documented in this encounter Visit Diagnoses Diagnosis [...] mL/hr documented in this encounter Care Teams Director Of Laboratory Operations Relationship Specialty Start Date End Date Richard Marshall DO [address] [place] [address] [place] [address] PCP - General Family Medicine 08/26/22 documented as of this encounter
--- OUTSIDE RECORDS SUMMARY | 2024-08-11 03:35 | External Medical Summary | Summary of Care ---
Author Name Unknown Organization [facility] Address [address] [facility] [place] [address] Phone [phone] Care Team Providers Care Blade Balancer Name Role Phone Richard Marshall DO Primary Care Provider [phone] Reason for Visit * Reason Comments Chemotherapy [...] MG ID INJECTION, Nicole Wise MD [address] [place] [address] Phone: tel: fax: Hematology/Oncology Treatment, [address] [address] Phone: tel: fax: Referral ID Status Reason Start Date Expiration Date V isits Requested Visits Authorized [id number] Authorized 05/31/2024 09/24/2024 [id number] Encounter Details Date Type Department Care Team (Latest Contact Info) Description 05/16/2024 10:30 AM EDT Hem/Onc Treatment Hematology/Oncolog y Treatment, [address] [address] Shereen, Chair 9 Hem Onc [address] [address] Lung cancer metastatic to bone (HCC)*; Cancer, [...] Respimat 2.5-2.5 MCG/ACT Inhalation Aerosol Solution (Tiotropium [place]-Olodaterol )Indications:COPD, severity to be determined ([facility] [...] No 05/22/2023 Does the household have a [facility] source of income? 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 Not on [...] 4:30 PM EST Immunization/Injecti on Hematology/Oncology Treatment, [address] [phone] [place], Chair 8 Hem Onc [address] [place] [address] 06/27/2024 10:10 AM EST Laboratory Laboratory [facility] [address] [place] [address] Park, Lab [address] [facility] [place] [address] 06/27/2024 10:30 AM EST Office Visit Hematology/Oncology [facility] [address] [place] [address] Nicole Vinson MD [address] [place] [address] [place] [address] 06/27/2024 11:15 AM EST Hem/Onc Treatment Hematology/Oncology Treatment, [address] [address] Shereen, Chair 4 Hem Onc Scenery [address] [place], [place] [address] 06/28/2024 8:30 AM EST Office Visit Ophthalmology, [facility] [address] [place] [address] Anthony Grey, DO [address] [place] [address] 07/12/2024 8:45 AM EST Imaging Radiology [facility] 1st Floor, [place] 132 [facility] [place] [address] 03/10/2025 10:00 AM EDT Office Visit Sleep Disorders Ctr [facility] 132 [facility] [place] [phone] Margie Gutierrez, DO [address] [place] [address] Health Maintenance Due Date Last Done Comments [...] this encounter Medical Devices Implanted Type Area Chicken Hatchery Helper Device Identifier Shelf Expiration Date Model / Serial / Lot Port Implant W8f Poly Cath - [id number] Implanted:Qty : 1 on 04/20/2024 by Nathan Hardwick MD at [facility] Right: Chest CR BARD : PERIPHERAL VASCULAR [id number] 06/25/2025 [id number] / / [id number] documented as of this encounter Procedures Procedure Name Priority Date/Time Associated Diagnosis Comments PHOSPHORUS STAT 05/16/2024 10:58 AM EDT Lung cancer metastatic to bone (HCC) documented in this encounter Results * PHOSPHORUS (05/16/2024 10:58 AM EDT) Phosphorus 2.9 2.5 - 4.8 mg/dL 05/16/2024 11:24 AM EDT [facility] 56-02 Blood Venous blood specimen / Unknown Central Line / Unknown 05/16/2024 10:58 AM EDT 05/16/2024 11:01 AM EDT us Nicole Vinson MD LAB BLOOD OR DERABLES Final Result [facility] 56-[address] [place] [address] documented in this encounter Visit Diagnoses Diagnosis [...] mL/hr documented in this encounter Care Teams Blade Balancer Relationship Specialty Start Date End Date Richard Marshall DO [address] [place] [address] [place] [address] PCP - General Family Medicine 08/26/22 documented as of this encounter
--- OUTSIDE RECORDS SUMMARY | 2024-08-11 03:35 | External Medical Summary | Summary of Care ---
Author Name Unknown Organization [facility] Address [address] [facility] [place] [address] Phone [phone] Care Team Providers Care Dentist Private Practice Name Role Phone Richard Marshall DO Primary Care Provider [phone] Reason for Visit * Reason Comments Chemotherapy C1/D1 - Mvasi, Taxol , Carboplatin * Episode Based Medications (Routine) - Authorized Specialty Diagnoses / Procedures Referred By Contac t Referred To Contact Diagnoses Cancer, metastatic to bone (HCC) Lung cancer metastatic to bone (HCC) Encounter for antineoplastic chemotherapy Prevention of chemotherapy-induced neutropenia Procedures [place] CARBOPLATIN INJECTION [place] FOSAPREPITANT INJECTION [place] INJ., ZIRABEV, 10 MG [place] PACLITAXEL INJECTION [place] INJECTION, UDENYCA 0.5 MG [place] INJ MVASI 10 MG [place] INJECTION, Nicole Wise MD [address] [place] [address] Phone: tel: fax: Hematology/Oncology Treatment, [address] [address] Phone: tel: fax: Referral ID Status Reason Start Date Expiration Date V isits Requested Visits Authorized [id number] Authorized 05/31/2024 09/24/2024 [id number] Encounter Details Date Type Department Care Team (Latest Contact Info) Description 05/16/2024 10:30 AM EDT Hem/Onc Treatment Hematology/Oncolog y Treatment, [address] [address] Shereen, Chair 9 Hem Onc [address] [address] Lung cancer metastatic to bone (HCC)*; Cancer, [...] Respimat 2.5-2.5 MCG/ACT Inhalation Aerosol Solution (Tiotropium [place]-Olodaterol )Indications:COPD, severity to be determined ([facility]) Inhale 2 Puffs by mouth daily. [...] No 05/22/2023 Does the household have a [facility] source of income? 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 on file Not [...] 4:30 PM EST Immunization/Injecti on Hematology/Oncology Treatment, [address] [phone] [place], Chair 8 Hem Onc [address] [place] [address] 06/27/2024 10:10 AM EST Laboratory Laboratory [facility] [address] [place] [address] [place], Lab [address] [facility] [place] [address] 06/27/2024 10:30 AM EST Office Visit Hematology/Oncology [facility] [address] [place] [address] Nicole Vinson MD [address] [place] [address] [place] [address] 06/27/2024 11:15 AM EST Hem/Onc Treatment Hematology/Oncology Treatment, [address] [address] Shereen, Chair 4 Hem Onc Scenery [address] [place], [place] [address] 06/28/2024 8:30 AM EST Office Visit Ophthalmology, [facility] [address] [place] [address] Anthony Grey, DO [address] [place] [address] 07/12/2024 8:45 AM EST Imaging Radiology [facility] 1st Floor, [place] 132 [facility] [place] [address] 03/10/2025 10:00 AM EDT Office Visit Sleep Disorders Ctr [facility] 132 [facility] [place] [phone] Margie Gutierrez, DO [address] [place] [address] Health Maintenance Due Date Last Done Comments [...] this encounter Medical Devices Implanted Type Area Professional Bass Fisher Device Identifier Shelf Expiration Date Model / Serial / Lot Port Implant W8f Poly Cath - [id number] Implanted:Qty : 1 on 04/20/2024 by Nathan Hardwick MD at [facility] Right: Chest CR BARD : PERIPHERAL VASCULAR [id number] 06/25/2025 [id number] / / [id number] documented as of this encounter Procedures Procedure Name Priority Date/Time Associated Diagnosis Comments PHOSPHORUS STAT 05/16/2024 10:58 AM EDT Lung cancer metastatic to bone (HCC) documented in this encounter Results * PHOSPHORUS (05/16/2024 10:58 AM EDT) Phosphorus 2.9 2.5 - 4.8 mg/dL 05/16/2024 11:24 AM EDT [facility] 56-02 Blood Venous blood specimen / Unknown Central Line / Unknown 05/16/2024 10:58 AM EDT 05/16/2024 11:01 AM EDT us Nicole Vinson MD LAB BLOOD OR DERABLES Final Result [facility] 56-[address] [place] [address] documented in this encounter Visit Diagnoses Diagnosis [...] mL/hr documented in this encounter Care Teams Dentist Private Practice Relationship Specialty Start Date End Date Richard Marshall DO [address] [place] [address] [place] [address] PCP - General Family Medicine 08/26/22 documented as of this encounter
--- OUTSIDE RECORDS SUMMARY | 2024-08-11 03:35 | External Medical Summary | Summary of Care ---
Author Name Unknown Organization [facility] Address [address] [facility] [place] [address] Phone [phone] Care Team Providers Care Hris Analyst Name Role Phone Richard Marshall DO Primary Care Provider [phone] Reason for Visit * Reason Comments Chemotherapy C1/D1 - Mvasi, Taxol , Carboplatin * Episode Based Medications (Routine) - Authorized Specialty Diagnoses / Procedures Referred By Contac t Referred To Contact Diagnoses Cancer, metastatic to bone (HCC) Lung cancer metastatic to bone (HCC) Encounter for antineoplastic chemotherapy Prevention of chemotherapy-induced neutropenia Procedures CT CARBOPLATIN INJECTION CT FOSAPREPITANT INJECTION CT INJ., ZIRABEV, [address] INJECTION, UDENYCA 0.[address] INJ MVASI [address] INJECTION, Nicole Wise MD [address] [place] [address] Phone: tel: fax: Hematology/Oncology Treatment, [address] [address] Phone: tel: fax: Referral ID Status Reason Start Date Expiration Date V isits Requested Visits Authorized [id number] Authorized 05/31/2024 09/24/[phone] Encounter Details Date Type Department Care Team (Latest Contact Info) Description 05/16/2024 10:30 AM EDT Hem/Onc Treatment Hematology/Oncolog y Treatment, [address] [address] Shereen, Chair 9 Hem Onc [address] [address] Lung cancer metastatic to bone (HCC)*; Cancer, [...] Respimat 2.5-2.5 MCG/ACT Inhalation Aerosol Solution (Tiotropium [place]-Olodaterol )Indications:COPD, severity to be determined ([facility]) Inhale 2 Puffs by mouth [...] No 05/22/2023 Does the household have a [facility] hospit[facility] source of income? (Household - for [...] 4:30 PM EST Immunization/Injecti on Hematology/Oncology Treatment, [address] [phone] Park, Chair 8 Hem Onc [address] [place] [address] 06/27/2024 10:10 AM EST Laboratory Laboratory [facility] [address] [place] [address] Park, Lab [address] [facility] [place] [address] 06/27/2024 10:30 AM EST Office Visit Hematology/Oncology [facility] [address] [place] [phone] Nicole Vinson MD [address] [place] [address] [place] [address] 06/27/2024 11:15 AM EST Hem/Onc Treatment Hematology/Oncology Treatment, [address] [address] Shereen, Chair 4 Hem Onc Scenery [address] [place], [place] [address] 06/28/2024 8:30 AM EST Office Visit Ophthalmology, [facility] [address] [place] [address] Anthony Grey, DO [address] [place] [address] 07/12/2024 8:45 AM EST Imaging Radiology [facility] 1st Floor, [place] [address] [facility] [address] [place] [address] 03/10/2025 10:00 AM EDT Office Visit Sleep Disorders Ctr [facility] [address] [place] [phone] Margie Gutierrez, DO [address] [place] [address] Health Maintenance Due Date Last Done Comments [...] this encounter Medical Devices Implanted Type Area Cardiac Cath Lab Radiology Technologist Device Identifier Shelf Expiration Date Model / Serial / Lot Port Implant W8f Poly Cath - [id number] Implanted:Qty : 1 on 04/20/2024 by Nathan Hardwick MD at [facility] Right: Chest CR BARD : PERIPHERAL VASCULAR [id number] 06/25/2025 [id number] / / [id number] documented as of this encounter Procedures Procedure Name Priority Date/Time Associated Diagnosis Comments PHOSPHORUS STAT 05/16/2024 10:58 AM EDT Lung cancer metastatic to bone (HCC) documented in this encounter Results * PHOSPHORUS (05/16/2024 10:58 AM EDT) Phosphorus 2.9 2.5 - 4.8 mg/dL 05/16/2024 11:24 AM EDT [facility] 56-02 Blood Venous blood specimen / Unknown Central Line / Unknown 05/16/2024 10:58 AM EDT 05/16/2024 11:01 AM EDT us Nicole Vinson MD LAB BLOOD OR DERABLES Final Result [facility] [address] [place] [address] documented in this encounter Visit Diagnoses Diagnosis [...] mL/hr documented in this encounter Care Teams Hris Analyst Relationship Specialty Start Date End Date Richard Marshall DO [address] [place] [address] [place] [address] PCP - General Family Medicine 08/26/22 documented as of this encounter
--- OUTSIDE RECORDS SUMMARY | 2024-08-11 03:36 | External Medical Summary | Summary of Care ---
Author Name Unknown Organization [facility] Address [address] [place] [place] [address] Phone [phone] Care Team Providers Care Dental Mold Maker Name Role Phone Richard Marshall DO Primary Care Provider [phone] Reason for Visit * Reason Onset Date Comments Precert Future 05/17/2024 [facility] Encounter Details Date Type Department Care Team (Late st Contact Info) Description 05/17/2024 Telephone Hematology/Oncology Treatment, [place] [address] [place] [address] Nicole Vinson MD [address] [facility] [place] [address] Precert Future ([facility]) Allergies Active Allergy Reactions Criticality Noted Date Comments Iodinated Contrast Media 07/05/2021 "itchy, rash and hives" CT Scan documented as of this encounter (statuses as of 06/03/2024) Medications Vitamin D (Cholecalciferol) 50 MCG (1999) Oral Capsule Take by mouth at bedtime. Active Ferrous Sulfate 325 (65 Fe) MG Oral Tablet (Feosol) Take 1 Tablet by mouth at bedtime. Active Stiolto Respimat 2.5-2.5 MCG/ACT Inhalation Aerosol Solution (Tiotropium [place]-Olodaterol )Indications:COPD, severity to be determined (HCC) Inhale [...] Tablet 04/18/20 24 024 Discontin ued(Refil l) Hospital, Clinic, or Other Facility Administered Medication Ordered Dose Route Frequency Start Date End Date Status bevaCIZumab (Avastin) inj 1.25 mgIndications:Radiation retinopathy, subsequent encounter 1.25 mg IZ PRN 10/08/2023 10/07/2024 Active ROPivacaine (Naropin) inj 1.5 mgIndications:Radiation retinopathy, subsequent encounter 1.5 mg IJ PRN 10/08/2023 10/07/2024 Active documented as of this encounter (statuses as of 06/03/2024) Active Problems Problem Noted Date Diagnosed Date [...] as of this encounter (statuses as of 06/03/2024) Resolved Problems Problem Noted Date Diagnosed Date Resolved Date COPD, group A, by GOLD 2017 classification 07/07/2022 04/07/2024 Overview: Per COPD GOLD Classification COPD, severity to be determined 07/09/2021 07/10/2022 Overview: Per COPD GOLD Classification documented as of this encounter (statuses as of 06/03/2024) Immunizations Name Administration Dates Next Due Covid-19 [...] 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 * Telephone Encounter - Nasreen Fernandez OSA - 06/02/2024 4:16 PM EST Waiting on clarification on network status. * Telephone Encounter - Lisette Jackson OSA - 05/30/2024 9:37 AM EST Team aware * Telephone Encounter - Whit Martinez RN - 05/17/2024 4:43 PM EDT Due to udenyca shortage, changed beacon plan to FULPHILA. Patient is scheduled for C2D1 bevacizumab, carbo, taxol 06/06/24. Waiting for auth. documented in this encounter Plan of Treatment Upcoming Encounters Date Type Department Care Team (Late st Contact Info) Description 06/06/2024 9:00 AM EST Laboratory Laboratory [facility] [place] [address] [place] [address] Shereen Lab [facility] [address] [facility] [place] [address] 06/06/2024 9:30 AM EST Office Visit Hematology/Oncology [facility] [place] [address] [place] [phone] Nicole Vinson MD [address] [place] [address] [place] [address] 06/06/2024 10:00 AM EST Hem/Onc Treatment Hematology/Oncology Treatment, [place] [address] [place] [phone] Shereen, Chair 11 Hem Onc Scenery [address] [place] [address] 06/13/2024 8:45 AM EST Imaging Radiology [facility] 1st Floor, [place] [address] [place] [address] 06/28/2024 8:30 AM EST Office Visit Ophthalmology, [facility] [address] [facility] [place] [address] Anthony Grey, DO [address] [place] [address] 03/10/2025 10:00 AM EDT Office Visit Sleep Disorders Ctr [facility] 132 [facility] [place] [phone] Margie Gutierrez, DO [address] [place] [address] Health Maintenance Due Date Last Done Comments [...] Lipid Panel 10/09/2026 10/09/2021, 07/09/2021 Diabetes Screening 05/11/2027 05/11/2024, 0 04/04/2024, 12/18/2023, Additional history exists Alpha-1 Antitrypsin Completed 10/09/2021 [...] this encounter Medical Devices Implanted Type Area Platen Press Operator Apprentice Device Identifier Shelf Expiration Date Model / Serial / Lot Port Implant W8f Poly Cath - [id number] Implanted:Qty : 1 on 04/20/2024 by Nathan Hardwick MD at OR [facility] Right: Chest CR BARD : PERIPHERAL VASCULAR [id number] 06/25/2025 [id number] / / [id number] documented as of this encounter Care Teams Dental Mold Maker Relationship Specialty Start Date End Date Richard Marshall DO [address] [place], [place] [phone] PCP - General Family Medicine 08/26/22 documented as of this encounter
--- OUTSIDE RECORDS SUMMARY | 2024-08-11 03:36 | External Medical Summary ---
Author Name Unknown Address Unknown Organization [facility] [place] [address] Laboratory Report Ordering Provider Test Date Status EDD ROCHA 06/06/2024 09:07:44 Final Observation Date Value Abnormality Reference (Units ) Status SYNC LEUKOCYTES IN BLOOD BY AUTOMATED COUNT 06/06/2024 09:07:44 19.51 Above high normal 4.00-10.80 (K/uL) Final Neutrophils/100 leukocytes in Blood by Manual count 06/06/2024 09:07:44 80.0 Above high normal 40.0-75.0 (%) Final Lymphocytes/100 leukocytes in Blood by Manual count 06/06/2024 09:07:44 14.0 Below low normal 18.0-42.0 (%) Final Monocytes/100 leukocytes in Blood by Manual count 06/06/2024 09:07:44 2.0 1.0-11.0 (%) Final Eosinophils/100 leukocytes in Blood by Manual count 06/06/2024 09:07:44 2.0 0.0-6.0 (%) Final Metamyelocytes/100 leukocytes in Blood by Manual count 06/06/2024 09:07:44 2.0 Above high normal <=0.0 (%) Final Neutrophils [#/volume] in Blood by Manual count 06/06/2024 09:07:44 15.61 Above high normal 1.80-7.70 (K/uL) Final Lymphocytes [#/volume] in Blood by Manual count 06/06/2024 09:07:44 2.73 1.00-4.80 (K/uL) Final Monocytes [#/volume] in Blood by Manual count 06/06/2024 09:07:44 0.39 0.00-1.10 (K/uL) Final Eosinophils [#/volume] in Blood by Manual count 06/06/2024 09:07:44 0.39 0.00-0.70 (K/uL) Final Metamyelocytes [#/volume] in Blood by Manual count 06/06/2024 09:07:44 0.39 Above high normal <=0.00 (K/uL) Final Nucleated erythrocytes/100 leukocytes [Ratio] in Blood by Automated count 06/06/2024 09:07:44 Final Neutrophils.vacuolated [Presence] in Blood by Light microscopy 06/06/2024 09:07:44 Present Abnormal None Seen Final Performing Location [facility] [address] [place] [address]
--- OUTSIDE RECORDS SUMMARY | 2024-08-11 03:36 | External Medical Summary ---
Author Name Unknown Address Unknown Organization [facility] [place] [address] Laboratory Report Ordering Provider Test Date Status EDD ROCHA 06/06/2024 09:07:44 Final Observation Date Value Abnormality Reference (Units ) Status WBC, Total 06/06/2024 09:07:44 19.51 Above high normal 4 .00-10.80 (K/uL) Final RBC 06/06/2024 09:07:44 4.76 3.85-5.15 (M/uL) Final Hemoglobin 06/06/2024 09:07:44 14.4 12.0-15.3 (g/dL) Final HCT 06/06/2024 09:07:44 44.3 36.0-45.2 (%) Final MCV 06/06/2024 09:07:44 93.1 81.5-97.5 (fL) Final MCH 06/06/2024 09:07:44 30.3 27.0-34.0 (pg) Final MCHC 06/06/2024 09:07:44 32.5 32.0-36.0 (g/dL) Final RDW 06/06/2024 09:07:44 17.3 11.5-15.5 (%) Final Platelets 06/06/2024 09:07:44 273 140-400 (K /uL) Final MPV 06/06/2024 09:07:44 9.3 6.6-11.1 ( fL) Final Performing Location [facility] [place] [address]
--- OUTSIDE RECORDS SUMMARY | 2024-08-11 03:36 | External Medical Summary ---
Author Name Unknown Address Unknown Organization [facility] [address] [place] [address] Laboratory Report Ordering Provider Test Date Status EDD ROCHA 06/06/2024 09:07:44 Final Observation Date Value Abnormality Reference (Units ) Status BUN 06/06/2024 09:07:44 23 Above high normal 6-20 (mg/dL) Final Creatinine 06/06/2024 09:07:44 0.7 0.5-1.0 (mg/dL) Final Glomerular filtration rate/1.73 sq M.predicted [Volume Rate/Area] in Serum, Plasma or Blood by Creatinine-based formula (CKD-EPI) 06/06/2024 09:07:44 >90 >=60 (mL/min) Final eGFR is calculated based on the CKD-EPI 2020 equation. Sodium 06/06/2024 09:07:44 138 135-146 (m mol/L) Final Potassium 06/06/2024 09:07:44 3.8 3.5-5.1 (m mol/L) Final Cl 06/06/2024 09:07:44 98 98-107 (mm ol/L) Final CO2 06/06/2024 09:07:44 25 22-32 (mmo l/L) Final Anion gap 06/06/2024 09:07:44 15 7-15 (mmol /L) Final Glucose 06/06/2024 09:07:44 146 Above high normal 70 -120 (mg/dL) Final Albumin 06/06/2024 09:07:44 4.5 3.8-5.0 (g /dL) Final AST (Aspartate aminotransferase) 06/06/2024 09:07:44 16 10-35 (U/L) Fin al Alk Phos 06/06/2024 09:07:44 95 35-130 (U/ L) Final Bilirubin, Total 06/06/2024 09:07:44 0.6 <=1 .2 (mg/dL) Final Calcium 06/06/2024 09:07:44 9.4 8.4-10.2 ( mg/dL) Final Protein 06/06/2024 09:07:44 7.0 6.0-8.3 (g /dL) Final ALT (Alanine aminotransferase) 06/06/2024 09:07:44 26 10-35 (U/L) Brian morrow Performing Location [facility] [address] [place] [address]
--- OUTSIDE RECORDS SUMMARY | 2024-08-11 03:36 | External Medical Summary ---
Author Name Unknown Address Unknown Organization [facility] [place] [address] Laboratory Report Ordering Provider Test Date Status EDD ROCHA 06/06/2024 09:07:44 Final Observation Date Value Abnormality Reference (Units ) Status Color of Urine by Auto 06/06/2024 09:07:44 Yellow Light Yellow, Yellow, Dark Yellow Final Clarity, Urine 06/06/2024 09:07:44 Clear Clear Final Glucose [Mass/volume] in Urine by Automated test strip 06/06/2024 09:07:44 Negative Negative (mg/dL) Final Bilirubin.total [Presence] in Urine by Automated test strip 06/06/2024 09:07:44 Negative Negative Final Ketones [Mass/volume] in Urine by Automated test strip 06/06/2024 09:07:44 Negative Negative (mg/dL) Final Specific gravity, Urine 06/06/2024 09:07:44 1.025 1.003-1.030 Final Hemoglobin [Presence] in Urine by Automated test strip 06/06/2024 09:07:44 Small Abnormal Negative Final pH, Urine 06/06/2024 09:07:44 5.5 5.0-7.5 (Units) Final Protein [Mass/volume] in Urine by Automated test strip 06/06/2024 09:07:44 Negative Negative (mg/dL) Final Urobilinogen [Mass/volume] in Urine by Automated test strip 06/06/2024 09:07:44 1.0 0.2, 1.0 (mg/dL) Final Nitrite [Presence] in Urine by Automated test strip 06/06/2024 09:07:44 Negative Negative Final Leukocyte esterase [Presence] in Urine by Automated test strip 06/06/2024 09:07:44 Negative Negative Final Performing Location [facility] [place] [address]
--- OUTSIDE RECORDS SUMMARY | 2024-08-11 03:36 | External Medical Summary ---
Author Name Unknown Address Unknown Organization [facility] [place] [address] Laboratory Report Ordering Provider Test Date Status EDD ROCHA 06/06/2024 09:07:44 Final Observation Date Value Abnormality Reference (Units ) Status RBC, Urine 06/06/2024 09:07:44 6-9 Abnormal 0-2 (/HPF) Final WBC, Urine 06/06/2024 09:07:44 0-2 0-2 (/HPF) Final Bacteria [#/area] in Urine sediment by Microscopy high power field 06/06/2024 09:07:44 0-25 0-25 (/HPF) Final Mucus, Urine 06/06/2024 09:07:44 Many Abnormal None (/HPF) Final Performing Location [facility] [place] [address]
--- OUTSIDE RECORDS SUMMARY | 2024-08-11 03:36 | External Medical Summary | Summary of Care ---
Author Name Unknown Organization [facility] Address [address] [facility] [place] [address] Phone [phone] Care Team Providers Care Glove Pairer Name Role Phone Richard Mrashall DO Primary Care Provider [phone] Reason for Visit * Reason Onset Date Comments Medication Refill 06/06/2024 Encounter Details Date Type Department Care Team (Late st Contact Info) Description 06/06/2024 Refill Hematology/Oncology Treatment, [place] [address] [place] [address] Nicole Vinson MD [address] [place] [address] Lung cancer metastatic to bone [...] Respimat 2.5-2.5 MCG/ACT Inhalation Aerosol Solution (Tiotropium [place]-Olodaterol )Indications:COPD, severity to be determined ([facility]) Inhale 2 Puffs by mouth daily. 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 Not on file [...] 4:30 PM EST Immunization/Injecti on Hematology/Oncology Treatment, [place] [facility] [place] [phone] Park, Chair 8 Hem Onc Sc[address] [place], [place] [address] 06/27/2024 10:10 AM EST Laboratory Laboratory [facility] [address] [place], [place] [phone] Shereen, Lab Scenery [address] [place] [address] 06/27/2024 10:30 AM EST Office Visit Hematology/Oncology [facility] [address] [place], [place] [phone] Nicole Vinson MD [address] [place] [address] [place] [phone] 06/27/2024 11:15 AM EST Hem/Onc Treatment Hematology/Oncology Treatment, [address], [place] [phone] Shereen, Chair 4 [facility] 200 [facility] [place] [address] 06/28/2024 8:30 AM EST Office Visit Ophthalmology, [facility] 132 [facility] [place] [address] Anthony Grey, DO 132 [facility] [place] [address] 07/12/2024 8:45 AM EST Imaging Radiology [facility] 1st [facility] 132 [facility] [place] [address] 03/10/2025 10:00 AM EDT Office Visit Sleep Disorders Ctr [facility] 132 [facility] [place] [phone] Margie Gutierrez, DO [address] [place] [address] Health Maintenance Due Date Last Done Comments [...] this encounter Medical Devices Implanted Type Area Dermatology Physician Assistant Device Identifier Shelf Expiration Date Model / Serial / Lot Port Implant W8f Poly Cath - [id number] Implanted:Qty : 1 on 04/20/2024 by Nathan Hardwick MD at OR [facility] Right: Chest CR BARD : PERIPHERAL VASCULAR [id number] 06/25/2025 [id number] / / [id number] documented as of this encounter Visit Diagnoses Diagnosis Lung cancer metastatic to bone (HCC)- Primary Cancer, metastatic to bone (HCC) Secondary malignant neoplasm of bone and bone marrow Encounter for antineoplastic chemotherapy Prevention of chemotherapy-induced neutropenia documented in this encounter Care Teams Glove Pairer Relationship Specialty Start Date End Date Richard Marshall DO [address] [place] [address] PCP - General Family Medicine 08/26/22 documented as of this encounter
--- OUTSIDE RECORDS SUMMARY | 2024-08-11 03:36 | External Medical Summary | Summary of Care ---
Author Name Unknown Organization [facility] Address [address] [facility] [place] [address] Phone [phone] Care Team Providers Care Oracle Webcenter Consultant Name Role Phone Richard Marshall DO Primary Care Provider [phone] Reason for Visit * Reason Onset Date Comments Medication Refill 06/06/2024 Encounter Details Date Type Department Care Team (Late st Contact Info) Description 06/06/2024 Refill Hematology/Oncology Treatment, [place] [address] [place] [address] Nicole Vinson MD [address] [place] [address] Lung cancer metastatic to bone [...] Respimat 2.5-2.5 MCG/ACT Inhalation Aerosol Solution (Tiotropium [place]-Olodaterol )Indications:COPD, severity to be determined ([facility]) Inhale 2 Puffs by mouth [...] 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 Not on file Not [...] 4:30 PM EST Immunization/Injecti on Hematology/Oncology Treatment, [place] [facility] [place] [phone] Park, Chair 8 Hem Onc Sc[address] [place], [place] [address] 06/27/2024 10:10 AM EST Laboratory Laboratory [facility] [address] [place], [place] [phone] Shereen, Lab Scenery [address] [place] [address] 06/27/2024 10:30 AM EST Office Visit Hematology/Oncology [facility] [address] [place], [place] [phone] Nicole Vinson MD [address] [place] [address] [place] [phone] 06/27/2024 11:15 AM EST Hem/Onc Treatment Hematology/Oncology Treatment, [address], [place] [phone] Shereen, Chair 4 [facility] 200 [place] [address] 06/28/2024 8:30 AM EST Office Visit Ophthalmology, [facility] 132 [facility] [place] [address] Anthony Grey, DO 132 [facility] [place] [address] 07/12/2024 8:45 AM EST Imaging Radiology [facility] 1st [facility] 132 [facility] [place] [address] 03/10/2025 10:00 AM EDT Office Visit Sleep Disorders Ctr [facility] 132 [facility] [place] [phone] Margie Gutierrez, DO [address] [place] [address] Health Maintenance Due Date Last Done Comments [...] this encounter Medical Devices Implanted Type Area Creative Consultant Device Identifier Shelf Expiration Date Model / Serial / Lot Port Implant W8f Poly Cath - [id number] Implanted:Qty : 1 on 04/20/2024 by Nathan Hardwick MD at OR [facility] Right: Chest CR BARD : PERIPHERAL VASCULAR [id number] 06/25/2025 [id number] / / [id number] documented as of this encounter Visit Diagnoses Diagnosis Lung cancer metastatic to bone (HCC)- Primary Cancer, metastatic to bone (HCC) Secondary malignant neoplasm of bone and bone marrow Encounter for antineoplastic chemotherapy Prevention of chemotherapy-induced neutropenia documented in this encounter Care Teams [employer] Webcenter Consultant Relationship Specialty Start Date End Date Richard Marshall DO [address] [place] [address] PCP - General Family Medicine 08/26/22 documented as of this encounter
--- OUTSIDE RECORDS SUMMARY | 2024-08-11 03:36 | External Medical Summary | Summary of Care ---
Author Name Unknown Organization [facility] Address [address] [facility] [place] [address] Phone [phone] Care Team Providers Care Lacquer Maker Name Role Phone Richard Marshall DO Primary Care Provider [phone] Reason for Visit * Reason Onset Date Comments Precert Future 05/17/[address] [facility] Encounter Details Date Type Department Care Team (Late st Contact Info) Description 05/17/2024 Telephone Hematology/Oncology Treatment, [place] [address] [place] [address] Nicole Vinson MD [address] [facility] [place] [address] Precert Future (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 * Telephone Encounter - Nasreen Fernandez OSA - 06/03/2024 12:47 PM EST Submitted to [facility] * Telephone Encounter - Whit Martinez RN [...] Description 06/06/2024 9:00 AM EST Laboratory Laboratory [facility] Shereen [place] [address] [place] [phone] Shereen Lab Scenery [address] [facility] [place] [address] 06/06/2024 9:30 AM EST Office Visit Hematology/Oncology Scenery [facility] [address] [place], [place] [phone] Nicole Vinson MD [address] [place] [address] [place] [address] 06/06/2024 10:00 AM EST Hem/Onc Treatment Hematology/Oncology Treatment, [place] [address] [place] [phone] Shereen, Chair 11 Hem Onc Scenery [address] [facility] [address] 06/13/2024 8:45 AM EST Imaging Radiology [facility] 1st Floor, [place] [address] [place] [address] 06/28/2024 8:30 AM EST Office Visit Ophthalmology, [facility] 132 [facility] [place] [address] Anthony Grey, DO [address] [place] [address] 03/10/2025 10:00 AM EDT Office Visit Sleep Disorders Ctr [facility] 132 [facility] [place] [phone] Margie Gutierrez, DO [address] [place] [address] Health Maintenance Due Date Last Done Comments [...] this encounter Medical Devices Implanted Type Area Environmental Health And Safety Manager Device Identifier Shelf Expiration Date Model / Serial / Lot Port Implant W8f Poly Cath - [id number] Implanted:Qty : 1 on 04/20/2024 by aNthan Hardwick MD at [facility] Right: Chest CR BARD : PERIPHERAL VASCULAR [id number] 06/25/2025 [id number] / / [id number] documented as of this encounter Care Teams Lacquer Maker Relationship Specialty Start Date End Date Richard Marshall DO 16 [place] [address] PCP - General Family Medicine 08/26/22 documented as of this encounter
--- OUTSIDE RECORDS SUMMARY | 2024-08-11 03:36 | External Medical Summary | Summary of Care ---
Author Name Unknown Organization [facility] Address [address] [facility] [place] [address] Phone [phone] Care Team Providers Care Credit Administrator Name Role Phone Richard Marshall DO Primary Care Provider + [phone] Reason for Visit * Reason Comments Outpatient Testing Encounter Details Date Type Department Care Team (Late st Contact Info) Description 06/06/2024 9:00 AM EST Laboratory Laboratory Scenery [facility] [address] [place] [phone] [facility] Lab Scenery [address] [place] [address] Lung cancer metastatic to bone (HCC); Cancer, [...] 2.5-2.5 MCG/ACT Inhalation Aerosol Solution (Tiotropium [place]-Olodaterol )Indications:COPD, severity to be determined ([facility]) Inhale 2 Puffs by mouth [...] with breakfast. 60 Tablet 05/17/20 24 Active Hospital, Clinic, or Other Facility [...] No 05/22/2023 Does the household have a [facility] source of income? 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 Not on f ile documented as of this encounter Plan of Treatment Upcoming Encounters Date Type Department Care Team (Late st Contact Info) Description 06/06/2024 9:30 AM EST Office Visit Hematology/Oncology Karla Regan [place] [address] [place], [place] [address] Nicole Vinson, MD [address] [place] [address] [place] [address] Arrived 06/06/2024 10:00 AM EST Hem/Onc Treatment Hematology/Oncology Treatment, [place] [address] [place] [address] Shereen, Chair 11 Hem Onc Scenery [address] [place] [address] Arrived 06/13/2024 8:45 AM EST Imaging Radiology [facility] 1st Floor, [place] [address] [place] [address] 06/28/2024 8:30 AM EST Office Visit Ophthalmology, [facility] 132 [facility] [place] [address] Anthony Grey, DO [address] [place] [address] 03/10/2025 10:00 AM EDT Office Visit Sleep Disorders Ctr [facility] 132 [facility] [place] [phone] Margie Gutierrez, DO [address] [place] [address] Pending Results Name Type Priority Associated Diagnoses Date /Time CBC WITH WBC DIFFERENTIAL Lab STAT Lung cancer metastatic to bone (HCC) Cancer, metastatic to bone (HCC) 06/06/2024 9:07 AM EST COMPREHENSIVE METABOLIC PANEL Lab STAT Lung cancer metastatic to bone (HCC) Cancer, metastatic to bone (HCC) 06/06/2024 9:07 AM EST URINALYSIS, REFLEX TO MICROSCOPIC Lab STAT Lung cancer metastatic to bone (HCC) Cancer, metastatic to bone (HCC) 06/06/2024 9:07 AM EST CBC Lab STAT Lung cancer metastatic to bone (HCC) Cancer, metastatic to bone (HCC) 06/06/2024 9:07 AM EST DIFFERENTIAL, AUTOMATED Lab STAT Lung cancer metastatic to bone (HCC) Cancer, metastatic to bone (HCC) 06/06/2024 9:07 AM EST MICROSCOPIC EXAM, URINE Lab STAT Lung cancer metastatic to bone (HCC) Cancer, metastatic to bone (HCC) 06/06/2024 9:07 AM EST Health Maintenance Due Date Last [...] this encounter Medical Devices Implanted Type Area Graduate Rn Device Identifier Shelf Expiration Date Model / Serial / Lot Port Implant W8f Poly Cath - [id number] Implanted:Qty : 1 on 04/20/2024 by Nathan Hardwick MD at OR [facility] Right: Chest CR BARD : PERIPHERAL VASCULAR [id number] 06/25/2025 [id number] / / [id number] documented as of this encounter Visit Diagnoses Diagnosis Lung cancer metastatic to bone (HCC) Cancer, metastatic to bone (HCC) Secondary malignant neoplasm of bone and bone marrow documented in this encounter Care Teams Credit Administrator Relationship Specialty Start Date End Date Richard Marshall DO [address] [place] [address] PCP - General Family Medicine 08/26/22 documented as of this encounter
--- OUTSIDE RECORDS SUMMARY | 2024-08-11 03:36 | External Medical Summary | Summary of Care ---
Author Name Unknown Organization [facility] Address [address] [facility] [place] [address] Phone [phone] Care Team Providers Care Lead Business Systems Analyst Name Role Phone Richard Marshall DO Primary Care Provider + [phone] Reason for Visit * Reason Comments Chemotherapy Mvasi/Taxol/Carbo * Episode Based Medications (Routine) - Authorized Specialty Diagnoses / Procedures Referred By Contac t Referred To Contact Diagnoses Cancer, metastatic to bone (HCC) Lung cancer metastatic to bone (HCC) Encounter for antineoplastic chemotherapy Prevention of chemotherapy-induced neutropenia Procedures MO CARBOPLATIN INJECTION MO FOSAPREPITANT INJECTION MO INJ., ZIRABEV, 10 MG MO PACLITAXEL INJECTION MO INJECTION, UDENYCA 0.5 MG MO INJ MVASI 10 MG MO INJECTION, Nicole Wise MD [address] [place] [address] [place] [address] Phone: tel: fax: Hematology/Oncology Treatment, [address] [address] Phone: tel: fax: Referral ID Status Reason Start Date Expiration Date V isits Requested Visits Authorized [id number] Authorized 05/31/2024 09/24/2024 [id number] Encounter Details Date Type Department Care Team (Latest Contact Info) Description 06/06/2024 10:00 AM EST Hem/Onc Treatment Hematology/Oncolog y Treatment, [address] [address] Shereen, Chair 11 Hem Onc [address] [address] Cancer, metastatic to bone (HCC)*; Lung cancer [...] Respimat 2.5-2.5 MCG/ACT Inhalation Aerosol Solution (Tiotropium [place]-Olodaterol )Indications:COPD, severity to be determined ([facility]) Inhale 2 Puffs by mouth daily. 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 Not on [...] 4:30 PM EST Immunization/Injecti on Hematology/Oncology Treatment, [place] [address] [place] [phone] Shereen, Chair 8 Hem Onc Scenery [address] [place] [address] 06/27/2024 10:10 AM EST Laboratory Laboratory [facility] Linda Regan [address] [place] [address] [phone] Shereen, Lab Scenery 200 [facility] [place], [place] [address] 06/27/2024 10:30 AM EST Office Visit Hematology/Oncology Scenery Theresa [place] [address] [place] [phone] Nicole Vinson MD [address] [place] [address] [place] [phone] 06/27/2024 11:15 AM EST Hem/Onc Treatment Hematology/Oncology Treatment, [place] [address] [place], [place] [phone] Shereen, Chair 4 Hem Onc Scenery 200 [facility] [place] [address] 06/28/2024 8:30 AM EST Office Visit Ophthalmology, [facility] [address] [place] [address] Anthony Grey, DO 132 [facility] [place] [address] 07/12/2024 8:45 AM EST Imaging Radiology [facility] 1st [facility] [address] [place] [address] 03/10/2025 10:00 AM EDT Office Visit Sleep Disorders Ctr [facility] [address] [place] [phone] Margie Gutierrez, DO [address] [place] [address] Health Maintenance Due Date Last Done Comments [...] this encounter Medical Devices Implanted Type Area Dry End Operator Device Identifier Shelf Expiration Date Model / Serial / Lot Port Implant W8f Poly Cath - [id number] Implanted:Qty : 1 on 04/20/2024 by Nathan Hardwick MD at OR [facility] Right: Chest CR BARD : PERIPHERAL VASCULAR [id number] 06/25/2025 [id number] / / [id number] documented as of this encounter Visit Diagnoses [...] ONCE PRN Other, Hypersensitivity Reaction, Starting on Thu06/06/24 at 1048, Until Thu06/07/24 at 1047, For 24 hoursIndications:Cancer, metastatic to bone (HCC),Lung cancer metastatic to bone (HCC),Encounter for antineoplastic chemotherapy,Prevention of chemotherapy-induced neutropenia EPINEPHrine 1 MG/ML inj 0.3 mg 0.3 mg, Intramuscular, ONCE PRN Other, Hypersensitivity Reaction or Anaphylaxis, Starting on Thu06/06/24 at 1048, Until Thu06/07/24 at 1047, For 24 hoursIndications:Cancer, metastatic to bone (HCC),Lung cancer metastatic to bone (HCC),Encounter for antineoplastic chemotherapy,Prevention of chemotherapy-induced neutropenia hEParin 100 UNIT/ML Lock Flush inj 500 Units 500 Units (5 mL), IV Lock, PRN Other, IV Flush, Starting on Thu06/06/24 at 1048, Until Thu06/07/24 at 1047, For 24 hours, Do not flush if lock, PICC, or central line not in place; IV infusing or unable to flush.Indications:Cancer, metastatic to bone (HCC),Lung cancer metastatic to bone (HCC),Encounter for antineoplastic chemotherapy,Prevention of chemotherapy-induced neutropenia Given 06/06/2024 4:40 PM EST 500 Units Hydrocortisone Sod Suc (PF) (Solu-Cortef) inj 100 mg 100 mg, IV Push, ONCE PRN Other, Hypersensitivity Reaction, Starting on Thu06/06/24 at 1048, Until Thu06/07/24 at 1047, For 24 hoursIndications:Cancer, metastatic to bone (HCC),Lung cancer metastatic to bone (HCC),Encounter for antineoplastic chemotherapy,Prevention of chemotherapy-induced neutropenia LORAzepam (Ativan) tab 0.5 mg 0.5 mg, Oral, ONCE PRN Anxiety, Nausea, Starting on Thu06/06/24 at 1200, Until DiscontinuedIndications:Canc er, metastatic to bone (HCC),Lung cancer metastatic to bone (HCC),Encounter for antineoplastic chemotherapy,Prevention of chemotherapy-induced neutropenia NSS infusion Intravenous, at 50 mL/hr, PRN, Starting on Thu06/06/24 at 1200, Until Discontinued, Maintenance lineIndications:Cancer, metastatic to bone (HCC),Lung cancer metastatic to bone (HCC),Encounter for antineoplastic chemotherapy,Prevention of chemotherapy-induced neutropenia Start Infusion 06/06/2024 10:48 AM EST 50 mL/hr oxygen GAS Inhalation, OXYGEN, First dose on Thu06/06/24 at 1130, Until Discontinued, Device/Managed by: Low Flow Device, [...] Flush, Starting on Thu06/06/24 at 1048, Until Thu06/07/24 at 1047, For 24 hours, Do not flush if lock, PICC, or central line not in place; IV infusing or unable to flush.Indications:Cancer, metastatic to bone (HCC),Lung cancer metastatic to bone (HCC),Encounter for antineoplastic chemotherapy,Prevention of chemotherapy-induced neutropenia Given 06/06/2024 4:40 PM EST 10 mL Inactive Administered Medications [...] 11:49 AM EST 150 mg 538.4 mL/hr PACLitaxel [...] 12:30 PM EST 368 mg 170 mL/hr documented in this encounter Care Teams Lead Business Systems Analyst Relationship Specialty Start Date End Date Richard Marshall DO [address] [place] [address] PCP - General Family Medicine 08/26/22 documented as of this encounter
--- OUTSIDE RECORDS SUMMARY | 2024-08-11 03:36 | External Medical Summary | Summary of Care ---
Author Name Unknown Organization [facility] Address [address] [facility] [place] [address] Phone [phone] Care Team Providers Care Park Maintainer Name Role Phone Richard Marshall DO Primary Care Provider [phone] Reason for Visit * Reason Onset Date Comments Medication Pre-auth 06/02/2024 chemo Encounter Details Date Type Department Care Team (Late st Contact Info) Description 06/02/2024 Telephone Hematology/Oncology Treatment, [place] [address] [place] [address] Nicole Vinson MD 400 [place] [address] Medication Pre-auth (chemo) Allergies Active Allergy Reactions Criticality Noted Date [...] Respimat 2.5-2.5 MCG/ACT Inhalation Aerosol Solution (Tiotropium [place]-Olodaterol )Indications:COPD, severity to be determined (HCC) Inhale [...] 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 * Telephone Encounter - Nasreen Fernandez OSA - 06/02/2024 4:14 PM EST I am waiting on clarification regarding network status on . * Telephone Encounter - Melanie Mendieta RN - 06/02/2024 2:01 PM EST Patient is scheduled for MVASI/TAXOL/CARBO on 06/06/24, ordered by Dr. Vinson. Precert referral has . Precert: please obtain new precert and enter referral. Ordering providers office: if precert referral is not back by 3pm the business day prior to treatment, appointment will need to be cancelled and rescheduled once referral is entered. Thanks! documented in this encounter Plan of Treatment Upcoming Encounters Date Type Department Care Team (Late st Contact Info) Description 06/06/2024 9:00 AM EST Laboratory Laboratory Karla Regan [place] [address] [place] [address] Dillon Regan [address] COUNTS INCLUDE 234 [facility]S AT [facility] [place] [address] 06/06/2024 9:30 AM EST Office Visit Hematology/Oncology Karla eRgan [place] [address] [place] [address] [phone] Nicole Vinson MD [address] [place] [address] [place] [address] 06/06/2024 10:00 AM EST Hem/Onc Treatment Hematology/Oncology Treatment, [place] [address] [place] [address] Park, Chair 11 Hem Onc Scenery [address] [place] [address] 06/13/2024 8:45 AM EST Imaging Radiology [facility] 1st Floor, [place] [address] [place] [address] 06/28/2024 8:30 AM EST Office Visit Ophthalmology, [facility] [address] [place] [address] Anthony Grey, DO [address] [place] [address] 03/10/2025 10:00 AM EDT Office Visit Sleep Disorders Ctr [facility] [address] [place] [phone] Margie Gutierrez, DO [address] [place] [address] Health Maintenance Due Date Last Done Comments [...] this encounter Medical Devices Implanted Type Area Harmonica Maker Device Identifier Shelf Expiration Date Model / Serial / Lot Port Implant W8f Poly Cath - [id number] Implanted:Qty : 1 on 04/20/2024 by Nathan Hardwick MD at [facility] Right: Chest CR BARD : PERIPHERAL VASCULAR [id number] 06/25/2025 [id number] / / [id number] documented as of this encounter Care Teams Park Maintainer Relationship Specialty Start Date End Date Richard Marshall DO 16 [place] [address] PCP - General Family Medicine 08/26/22 documented as of this encounter
--- OUTSIDE RECORDS SUMMARY | 2024-08-11 03:36 | External Medical Summary | Summary of Care ---
Author Name Unknown Organization [facility] Address [address] [facility] [place] [address] Phone [phone] Care Team Providers Care School Cafeteria Cook Name Role Phone Richard Marshall DO Primary Care Provider [phone] Reason for Visit * Reason Comments Chemotherapy C1/D1 - Mvasi, Taxol , Carboplatin * Episode Based Medications (Routine) - Authorized Specialty Diagnoses / Procedures Referred By Contac t Referred To Contact Diagnoses Cancer, metastatic to bone (HCC) Lung cancer metastatic to bone (HCC) Encounter for antineoplastic chemotherapy Prevention of chemotherapy-induced neutropenia Procedures ME CARBOPLATIN INJECTION ME FOSAPREPITANT INJECTION ME INJ., ZIRABEV, 10 MG ME PACLITAXEL INJECTION ME INJECTION, UDENYCA 0.5 MG ME INJ MVASI 10 MG ME INJECTION, Nicole Wise MD [address] [place] [address] [place] [address] Phone: tel: fax: Hematology/Oncology Treatment, [address] [address] Phone: tel: fax: Referral ID Status Reason Start Date Expiration Date V isits Requested Visits Authorized [id number] Authorized 05/31/2024 09/24/2024 [id number] Encounter Details Date Type Department Care Team (Latest Contact Info) Description 05/16/2024 10:30 AM EDT Hem/Onc Treatment Hematology/Oncolog y Treatment, [address] [address] Shereen, Chair 9 Hem Onc [address] [address] Lung cancer metastatic to bone (HCC)*; Cancer, [...] Respimat 2.5-2.5 MCG/ACT Inhalation Aerosol Solution (Tiotropium [place]-Olodaterol )Indications:COPD, severity to be determined ([facility]) Inhale 2 Puffs by mouth daily. [...] No 05/22/2023 Does the household have a [facility] source of income? 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 on file [...] 4:30 PM EST Immunization/Injecti on Hematology/Oncology Treatment, [address] [phone] Park, Chair 8 Hem Onc [address] [place] [address] 06/27/2024 10:10 AM EST Laboratory Laboratory [facility] [address] [place] [address] Park, Lab [address] [facility] [place] [address] 06/27/2024 10:30 AM EST Office Visit Hematology/Oncology [facility] [address] [place] [phone] Nicole Vinson MD [address] [place] [address] [place] [phone] 06/27/2024 11:15 AM EST Hem/Onc Treatment Hematology/Oncology Treatment, [address] [address] Shereen, Chair 4 Hem Onc Scenery [address] [place], [place] [address] 06/28/2024 8:30 AM EST Office Visit Ophthalmology, [facility] [address] [place] [address] Anthony Grey, DO [address] [place] [address] 07/12/2024 8:45 AM EST Imaging Radiology [facility] 1st Floor, [place] 132 [facility] [place] [address] 03/10/2025 10:00 AM EDT Office Visit Sleep Disorders Ctr [facility] 132 [facility] [place] [phone] Margie Gutierrez, DO [address] [place] [address] Health Maintenance Due Date Last Done Comments [...] this encounter Medical Devices Implanted Type Area Anti Tank Missileman Device Identifier Shelf Expiration Date Model / Serial / Lot Port Implant W8f Poly Cath - [id number] Implanted:Qty : 1 on 04/20/2024 by Nathan Hardwick MD at [facility] Right: Chest CR BARD : PERIPHERAL VASCULAR [id number] 06/25/2025 [id number] / / [id number] documented as of this encounter Procedures Procedure Name Priority Date/Time Associated Diagnosis Comments PHOSPHORUS STAT 05/16/2024 10:58 AM EDT Lung cancer metastatic to bone (HCC) documented in this encounter Results * PHOSPHORUS (05/16/2024 10:58 AM EDT) Phosphorus 2.9 2.5 - 4.8 mg/dL 05/16/2024 11:24 AM EDT [facility] 56-02 Blood Venous blood specimen / Unknown Central Line / Unknown 05/16/2024 10:58 AM EDT 05/16/2024 11:01 AM EDT us Nicole Vinson MD LAB BLOOD OR DERABLES Final Result [facility] 56-[address] [place] [address] documented in this encounter Visit Diagnoses Diagnosis [...] mL/hr documented in this encounter Care Teams School Cafeteria Cook Relationship Specialty Start Date End Date Richard Marshall DO [address] [place] [address] [place] [address] PCP - General Family Medicine 08/26/22 documented as of this encounter
--- OUTSIDE RECORDS SUMMARY | 2024-08-11 03:36 | External Medical Summary | Summary of Care ---
Author Name Unknown Organization [facility] Address [address] [facility] [facility] [address] Phone [phone] Care Team Providers Care Transportation Mechanic Name Role Phone Richard Marshall DO Primary Care Provider [phone] Encounter Details Date Type Department Care Team (Late st Contact Info) Description 06/06/2024 Orders Only Hematology/Oncology [facility] [place] [address] [facility] [address] Nicole V[facility] [address] [facility] [address] Lung cancer metastatic to bone (HCC)*; [...] Respimat 2.5-2.5 MCG/ACT Inhalation Aerosol Solution (Tiotropium [place]-Olodaterol )Indications:COPD, severity to be determined ([facility]) Inhale 2 Puffs by mouth [...] 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 f ile documented as of this encounter Plan of Treatment Upcoming Encounters Date Type Department Care Team (Late st Contact Info) Description 06/06/2024 9:30 AM EST Office Visit Hematology/Oncology Karla Regan [place] [address] [place] [address] Nicole Vinson MD [address] [place] [address] [place] [phone] Arrived 06/06/2024 10:00 AM EST Hem/Onc Treatment Hematology/Oncology Treatment, [place] [address] [place] [phone] Shereen, Chair 11 Hem Onc Scenery [address] [place] [address] Arrived 06/13/2024 8:45 AM EST Imaging Radiology [facility] 1st Floor, [place] [address] [facility] [place] [address] 06/28/2024 8:30 AM EST Office Visit Ophthalmology, [facility] [address] [facility] [place] [address] Anthony Grey, DO [address] [place] [address] 03/10/2025 10:00 AM EDT Office Visit Sleep Disorders Ctr [facility] [address] [facility] [place] [phone] Margie Gutierrez, DO [address] [place] [address] Pending Results Name Type Priority Associated Diagnoses [...] to bone (HCC) 06/06/2024 9:07 AM EST Scheduled Orders Name Type Priority Associated Diagnoses Orde r Schedule CBC WITH WBC DIFFERENTIAL Lab STAT Lung cancer metastatic to bone (HCC) Cancer, metastatic to bone (HCC) Every 3 Weeks for 12 Occurrences starting 06/06/2024 until 06/06/2025 COMPREHENSIVE METABOLIC PANEL Lab STAT Lung cancer metastatic to bone (HCC) Cancer, metastatic to bone (HCC) Every 3 Weeks for 12 Occurrences starting 06/06/2024 until 06/06/2025 URINALYSIS, REFLEX TO MICROSCOPIC Lab STAT Lung cancer metastatic to bone (HCC) Cancer, metastatic to bone (HCC) Every 3 Weeks for 12 Occurrences starting 06/06/2024 until 06/06/2025, 1 completed PHOSPHORUS Lab STAT Lung cancer metastatic to bone (HCC) Cancer, metastatic to bone (HCC) Every 6 Weeks for 12 Occurrences starting 06/06/2024 until 06/06/2025 Health Maintenance Due Date Last Done Comments [...] this encounter Medical Devices Implanted Type Area Ostomy Rn Device Identifier Shelf Expiration Date Model / Serial / Lot Port Implant W8f Poly Cath - [id number] Implanted:Qty : 1 on 04/20/2024 by Nathan Hardwick MD at [facility] Right: Chest CR BARD : PERIPHERAL VASCULAR [id number] 06/25/2025 [id number] / / [id number] documented as of this encounter Visit Diagnoses Diagnosis Lung cancer metastatic to bone (HCC)- Primary Cancer, metastatic to bone (HCC) Secondary malignant neoplasm of bone and bone marrow documented in this encounter Care Teams Transportation Mechanic Relationship Specialty Start Date End Date Richard Marshall DO [address] [place], [place] [id number] PCP - General Family Medicine 08/26/22 documented as of this encounter
--- OUTSIDE RECORDS SUMMARY | 2024-08-11 03:37 | External Medical Summary | Summary of Care ---
Author Name Unknown Organization [facility] Address [address] [facility] [place] [address] Phone [phone] Care Team Providers Care Emu Farmer Name Role Phone Richard Marshall DO Primary Care Provider [phone] Reason for Visit * Reason Onset Date Comments Precert Future 05/17/2024 [facility] Encounter Details Date Type Department Care Team (Late st Contact Info) Description 05/17/2024 Telephone Hematology/Oncology Treatment, [place] [address] [place] [address] Nicole Vinson MD 400 [place] [address] Precert Future ([facility]) Allergies Active Allergy Reactions Criticality Noted Date Comments Iodinated Contrast Media 07/05/2021 "itchy, rash and hives" CT Scan documented as of this encounter (statuses as of 05/17/2024) Medications Medication Sig Dispensed Refills Start Date End Date Status Vitamin D (Cholecalciferol) 50 MCG (1999) Oral Capsule Take by mouth at bedtime. Active Ferrous Sulfate 325 (65 Fe) MG Oral Tablet (Feosol) Take 1 Tablet by mouth at bedtime. Active Stiolto Respimat 2.5-2.5 MCG/ACT Inhalation Aerosol Solution (Tiotropium [place]-Olodaterol)I ndications:COPD, severity to be determined (HCC) Inhale 2 Puffs by mouth daily. 12 g 3 07/24/2021 Active Premarin 0.625 MG/GM Vaginal Cream (Estrogens, Conjugated) Administer into the vagina at bedtime . As directed. 42.5 g 5 10/07/2021 Active Atorvastatin Calcium 40 MG Oral Tablet (Lipitor) TAKE 1 TABLET DAILY 90 Tablet 3 12/30/2021 Active CPAP every night at bedtime . Active Premarin 0.625 MG Oral Tablet Take 1 Tablet by mouth at bedtime. 10/16/2022 Active clonazePAM 0.5 MG Oral Tablet (KlonoPIN) Take 1 Tablet by mouth daily as needed for Anxiety. 15 Tablet 1 12/29/2022 Active DULoxetine HCl 30 MG Oral Capsule Delayed Release Particles (Cymbalta) Take 1 Capsule by mouth in the morning. 90 Capsule 08/14/2023 Active traZODone HCl 50 MG Oral Tablet (Desyrel)Indications :Primary insomnia Take 2 Tablets by mouth at bedtime. 180 Tablet 08/14/2023 Active Albuterol Sulfate 108 (90 Base) MCG/ACT [...] morning and evening meals. 60 Tablet 3 01/27/2024 Active dexAMETHasone 4 MG Oral Tablet (Decadron)Indication s:Lung cancer metastatic to bone (HCC),Pain from bone metastases (HCC),Cancer, metastatic to bone (HCC),Lesion of thoracic vertebra Take 2 Tablets by mouth daily with breakfast. 60 Tablet 04/18/2024 Active Lactulose 10 GM/15ML Oral Solution (Constulose)Indicati ons:Drug-induced constipation Take 30 mL by mouth in the morning and 30 mL before bedtime. 1992 mL 2 04/18/2024 Active diphenhydrAMINE HCl 25 MG Oral Tablet (Benadryl)Indication s:Cancer, metastatic to bone (HCC),Lung cancer metastatic to bone (HCC),Encounter for antineoplastic chemotherapy,Prevent ion of chemotherapy-induced neutropenia Take by mouth 1 Capsule 12 hours prior to paclitaxel infusion. 1 Tablet 05/11/2024 Active Famotidine 20 MG Oral Tablet (Pepcid)Indications: Cancer, metastatic to bone (HCC),Lung cancer metastatic to bone (HCC),Encounter for antineoplastic chemotherapy,Prevent ion of chemotherapy-induced neutropenia Take by mouth 1 Tablet 12 hours prior to paclitaxel infusion. 1 Tablet 05/11/2024 Active Prochlorperazine Maleate 10 MG Oral Tablet (Compazine)Indicatio ns:Cancer, metastatic to bone (HCC),Lung cancer metastatic to bone (HCC),Encounter for antineoplastic chemotherapy,Prevent ion of chemotherapy-induced neutropenia Take 1 Tablet by mouth every 6 hours as needed for Nausea. 30 Tablet 5 05/11/2024 Active oxyCODONE HCl ER 40 MG Oral Tablet ER 12 Hour Abuse-Deterrent (OxyCONTIN)Indicatio ns:Lung cancer metastatic to bone (HCC),Recurrent adenocarcinoma of lung, unspecified laterality (HCC),Pain from bone metastases (HCC),Cancer, metastatic to bone (HCC),Lesion of thoracic vertebra,Drug-induce d constipation Take 1 Tablet by mouth in the morning and 1 Tablet before bedtime. 60 Tablet 05/12/2024 Active oxyCODONE-Acetaminop hen 5-325 MG Oral Tablet (Percocet)Indication s:Lung cancer metastatic to bone (HCC) Take 2 Tablets by mouth every 6 hours as needed for Pain, Moderate. 60 Tablet 05/12/2024 Active Loratadine 10 MG Oral Tablet (Claritin)Indication s:Lung cancer metastatic to bone (HCC),Recurrent adenocarcinoma of lung, unspecified laterality (HCC),Cancer, metastatic to bone (HCC),Lesion of thoracic vertebra Take 1 tablet x5 days starting the day of chemotherapy 30 Tablet 05/12/2024 Active Lidocaine-Prilocaine 2.5-2.5 % External Cream (Emla)Indications:Adore ng cancer metastatic to bone (HCC),Recurrent adenocarcinoma of lung, unspecified laterality (HCC),Cancer, metastatic to bone (HCC),Lesion of thoracic vertebra APPLY TO SKIN OVER MEDIPORT & COVER 1HR PRIOR TO ACCESSING. 30 g 1 05/12/2024 Active Hospital, Clinic, or Other Facility Administered Medication Ordered Dose Route Frequency Start Date End Date Status bevaCIZumab (Avastin) inj 1.25 mgIndications:Radiation retinopathy, subsequent encounter 1.25 mg IZ PRN 10/08/2023 10/07/2024 Active ROPivacaine (Naropin) inj 1.5 mgIndications:Radiation retinopathy, subsequent encounter 1.5 mg IJ PRN 10/08/2023 10/07/2024 Active documented as of this encounter (statuses as of 05/17/2024) Active Problems Problem Noted Date Diagnosed Date [...] as of this encounter (statuses as of 05/17/2024) Resolved Problems Problem Noted Date Diagnosed Date Resolved Date COPD, group A, by GOLD 2017 classification 07/07/2022 04/07/2024 Overview: Per COPD GOLD Classification COPD, severity to be determined 07/09/2021 07/10/2022 Overview: Per COPD GOLD Classification documented as of this encounter (statuses as of 05/17/2024) Immunizations Name Administration Dates Next Due Covid-19 [...] No 05/22/2023 Does the household have a unm cancer centerlar source of income? (Household - for [...] ages 0-17 years) Not on file 05/22/2023 Sex and Gender Information Value Date Recorded Sex Assigned at Female 05/18/2023 8:46 AM EDT Gender Identity Female 05/18/2023 8:46 AM EDT Sexual Orientation Straight 05/18/2023 8: 46 AM EDT Job Start Date Occupation Industry Not on file Not on file Not on file documented as of this encounter Miscellaneous Notes [...] Description 06/06/2024 9:00 AM EST Laboratory Laboratory [facility] [address] [place] [phone] She[place], Lab [address]en[address] [place] [address] 06/06/2024 9:30 AM EST Office Visit Hematology/Oncology [facility] [place] [address] [place] [phone] Nicole Vinson MD [address] [place] [address] [place] [phone] 06/06/2024 10:00 AM EST Hem/Onc Treatment Hematology/Oncology Treatment, [place] [address] [place] [phone] Shereen, Chair 11 Hem Onc Scenery [address] [place] [address] 06/13/2024 8:45 AM EST Imaging Radiology [facility], [place] [address] [facility] [place] [address] 06/28/2024 8:30 AM EST Office Visit Ophthalmology, [facility] [address] [facility] [place] [address] Anthony Grey, DO [address] [place] [address] 03/10/2025 10:00 AM EDT Office Visit Sleep Disorders Ctr [facility] 132 [facility] [place] [phone] Margie Gutierrez, DO [address] [place] [address] Health Maintenance Due Date Last Done Comments [...] this encounter Medical Devices Implanted Type Area Accounts Payable Administrator Device Identifier Shelf Expiration Date Model / Serial / Lot Port Implant W8f Poly Cath - [id number] Implanted:Qty : 1 on 04/20/2024 by Nathan Hardwick MD at OR [facility] Right: Chest CR BARD : PERIPHERAL VASCULAR [id number] 06/25/2025 [id number] / / [id number] documented as of this encounter Care Teams Emu Farmer Relationship Specialty Start Date End Date Richard Marshall DO [address] [place], [place] [phone] PCP - General Family Medicine 08/26/22 documented as of this encounter
--- OUTSIDE RECORDS SUMMARY | 2024-08-11 03:37 | External Medical Summary | Summary of Care ---
Author Name Unknown Organization [facility] Address [address] [facility] [place] [address] Phone [phone] Care Team Providers Care Payroll Consultant Name Role Phone Richard Marshall DO Primary Care Provider [phone] Reason for Visit * Reason Onset Date Comments Precert Future 05/17/2024 [facility] Encounter Details Date Type Department Care Team (Late st Contact Info) Description 05/17/2024 Telephone Hematology/Oncology Treatment, [place] [address] [place] [address] Nicole Vinson MD [address] [facility] [place] [address] Precert Future ([facility]) Allergies Active Allergy Reactions Criticality Noted Date Comments Iodinated Contrast Media 07/05/2021 "itchy, rash and hives" CT Scan documented as of this encounter (statuses as of 05/30/2024) Medications Medication Sig Dispensed Refills Start Date End Date Status Vitamin D (Cholecalciferol) 50 MCG (1999) Oral Capsule Take by mouth at bedtime. Active Ferrous Sulfate 325 (65 Fe) MG Oral Tablet (Feosol) Take 1 Tablet by mouth at bedtime. Active Stiolto Respimat 2.5-2.5 MCG/ACT Inhalation Aerosol Solution (Tiotropium [place]-Olodaterol) Indications:COPD, severity to be determined (HCC) Inhale 2 [...] Active traZODone HCl 50 MG Oral Tablet (Desyrel)Indication s:Primary insomnia Take 2 Tablets by mouth at [...] evening meals. 60 Tablet 3 01/27/2024 Active Lactulose 10 GM/15ML Oral Solution (Constulose)Indicat ions:Drug-induced constipation Take 30 mL by mouth in the morning and 30 mL before bedtime. 1992 mL 2 04/18/2024 Active diphenhydrAMINE HCl 25 MG Oral Tablet (Benadryl)Indicatio ns:Cancer, metastatic to bone (HCC),Lung cancer metastatic to bone (HCC),Encounter for antineoplastic chemotherapy,Preven tion of chemotherapy-induce d neutropenia Take by mouth 1 Capsule 12 hours prior to paclitaxel infusion. 1 Tablet 05/11/2024 Active Famotidine 20 MG Oral Tablet (Pepcid)Indications :Cancer, metastatic to bone (HCC),Lung cancer metastatic to bone (HCC),Encounter for antineoplastic chemotherapy,Preven tion of chemotherapy-induce d neutropenia Take by mouth 1 Tablet 12 hours prior to paclitaxel infusion. 1 Tablet 05/11/2024 Active Prochlorperazine Maleate 10 MG Oral Tablet (Compazine)Indicati ons:Cancer, metastatic to bone (HCC),Lung cancer metastatic to bone (HCC),Encounter for antineoplastic chemotherapy,Preven tion of chemotherapy-induce d neutropenia Take 1 Tablet by mouth every 6 hours as needed for Nausea. 30 Tablet 5 05/11/2024 Active oxyCODONE HCl ER 40 MG Oral Tablet ER 12 Hour Abuse-Deterrent (OxyCONTIN)Indicati ons:Lung cancer metastatic to bone (HCC),Recurrent adenocarcinoma of lung, unspecified laterality (HCC),Pain from bone metastases (HCC),Cancer, metastatic to bone (HCC),Lesion of thoracic vertebra,Drug-induc ed constipation Take 1 Tablet by mouth in the morning and 1 Tablet before bedtime. 60 Tablet 05/12/2024 Active oxyCODONE-Acetamino phen 5-325 MG Oral Tablet (Percocet)Indicatio ns:Lung cancer metastatic to bone (HCC) Take 2 Tablets by mouth every 6 hours as needed for Pain, Moderate. 60 Tablet 05/12/2024 Active Loratadine 10 MG Oral Tablet (Claritin)Indicatio ns:Lung cancer metastatic to bone (HCC),Recurrent adenocarcinoma of lung, unspecified laterality (HCC),Cancer, metastatic to bone (HCC),Lesion of thoracic vertebra Take 1 tablet x5 days starting the day of chemotherapy 30 Tablet 05/12/2024 Active Lidocaine-Prilocain e 2.5-2.5 % External Cream (Emla)Indications:[place] cancer metastatic to bone (HCC),Recurrent adenocarcinoma of lung, unspecified laterality (HCC),Cancer, metastatic to bone (HCC),Lesion of thoracic vertebra APPLY TO SKIN OVER MEDIPORT & COVER 1HR PRIOR TO ACCESSING. 30 g 1 05/12/2024 Active dexAMETHasone 4 MG Oral Tablet (Decadron)Indicatio ns:Lung cancer metastatic to bone (HCC),Pain from bone metastases (HCC),Cancer, metastatic to bone (HCC),Lesion of thoracic vertebra Take 2 Tablets by mouth daily with breakfast. 60 Tablet 04/18/2024 05/17/20 24 Discontinu ed(Refill) Hospital, Clinic, or Other Facility Administered Medication Ordered Dose Route Frequency Start Date End Date Status bevaCIZumab (Avastin) inj 1.25 mgIndications:Radiation retinopathy, subsequent encounter 1.25 mg IZ PRN 10/08/2023 10/07/2024 Active ROPivacaine (Naropin) inj 1.5 mgIndications:Radiation retinopathy, subsequent encounter 1.5 mg IJ PRN 10/08/2023 10/07/2024 Active documented as of this encounter (statuses as of 05/30/2024) Active Problems Problem Noted Date Diagnosed Date [...] as of this encounter (statuses as of 05/30/2024) Resolved Problems Problem Noted Date Diagnosed Date Resolved Date COPD, group A, by GOLD 2017 classification 07/07/2022 04/07/2024 Overview: Per COPD GOLD Classification COPD, severity to be determined 07/09/2021 07/10/2022 Overview: Per COPD GOLD Classification documented as of this encounter (statuses as of 05/30/2024) Immunizations Name Administration Dates Next Due Covid-19 [...] encounter Miscellaneous Notes * Telephone Encounter - Lisette Jackson OSA - 05/30/2024 9:37 AM EST Team aware * Telephone Encounter - Whit Martinez RN - 05/17/2024 4:43 PM EDT Due to udenyca shortage, changed beacon plan to AYAKAPHILA. Patient is scheduled for C2D1 bevacizumab, carbo, taxol 06/06/24. Waiting for auth. documented in this encounter Plan of Treatment Upcoming Encounters Date Type Department Care Team (Late st Contact Info) Description 06/06/2024 9:00 AM EST Laboratory Laboratory [facility] [address] [place] [phone] Shereen, Lab Scenery [address] [place] [address] 06/06/2024 9:30 AM EST Office Visit Hematology/Oncology [facility] [place] [address] [place] [phone] Nicole Vinson MD [address] [place] [address] [place] [phone] 06/06/2024 10:00 AM EST Hem/Onc Treatment Hematology/Oncology Treatment, [place] [address] [place] [phone] Shereen, Chair 11 Hem Onc Scenery [address] [place] [address] 06/13/2024 8:45 AM EST [facility] 132 [facility] [place] [address] 06/28/2024 8:30 AM EST Office Visit Ophthalmology, [facility] 132 [facility] [place] [address] Anthony Grey, 132 [facility] [place] [address] 03/10/2025 10:00 AM EDT Office Visit Sleep Disorders Ctr [facility] [address] [place] [phone] Margie Gutierrez DO [address] [place] [address] Health Maintenance Due Date Last Done Comments [...] this encounter Medical Devices Implanted Type Area Clerical Aide Device Identifier Shelf Expiration Date Model / Serial / Lot Port Implant W8f Poly Cath - [id number] Implanted:Qty : 1 on 04/20/2024 by Nathan Hardwick MD at [facility] Right: Chest CR BARD : PERIPHERAL VASCULAR [id number] 06/25/2025 [id number] / / [id number] documented as of this encounter Care Teams Payroll Consultant Relationship Specialty Start Date End Date Richard Marshall DO 16 [place] [address] PCP - General Family Medicine 08/26/22 documented as of this encounter
--- OUTSIDE RECORDS SUMMARY | 2024-08-11 03:37 | External Medical Summary | Summary of Care ---
Author Name Unknown Organization [facility] Address [address] [facility] [place] [address] Phone [phone] Care Team Providers Care Drying Unit Felting Machine Operator Name Role Phone Richard Marshall DO Primary Care Provider [phone] Reason for Visit * Reason Onset Date Comments Precert Future 05/17/2024 [facility] Encounter Details Date Type Department Care Team (Late st Contact Info) Description 05/17/2024 Telephone Hematology/Oncology Treatment, [place] [address] [place] [address] Nicole Vinson MD [address] [place] [address] Precert Future ([facility]) Allergies Active Allergy Reactions Criticality Noted Date [...] Respimat 2.5-2.5 MCG/ACT Inhalation Aerosol Solution (Tiotropium [place]-Olodaterol )Indications:COPD, severity to be determined (HCC) Inhale [...] 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 [address] [place] [phone] She[place], Lab [facility] 200 [facility] [place] [address] 06/06/2024 9:30 AM EST Office Visit Hematology/Oncology [facility] [address] [place] [address] Nicole Vinson MD [address] [place] [address] [place] [phone] 06/06/2024 10:00 AM EST Hem/Onc Treatment Hematology/Oncology Treatment, [place] [address] [place] [phone] Shereen, Chair 11 Hem Onc Scenery [address] [place], [place] [address] 06/13/2024 8:45 AM EST Imaging Radiology [facility] 1st Floor, [place] 132 [facility] [place] [address] 06/28/2024 8:30 AM EST Office Visit Ophthalmology, [facility] [address] [place] [address] Anthony Grey, DO [address] [place] [address] 03/10/2025 10:00 AM EDT Office Visit Sleep Disorders Ctr [facility] [address] [place] [phone] Margie Gutierrez, DO [address] [place] [address] Health Maintenance Due Date Last Done Comments [...] encounter Medical Devices Implanted Type Area Senior Environmental Scientist Device Identifier Shelf Expiration Date Model / Serial / Lot Port Implant W8f Poly Cath - [id number] Implanted:Qty : 1 on 04/20/2024 by Nathan Hardwick MD at OR [facility] Right: Chest CR BARD : PERIPHERAL VASCULAR [id number] 06/25/2025 [id number] / / [id number] documented as of this encounter Care Teams Drying Unit Felting Machine Operator Relationship Specialty Start Date End Date Richard Marshall DO [address] [place] [address] PCP - General Family Medicine 08/26/22 documented as of this encounter
--- OUTSIDE RECORDS SUMMARY | 2024-08-11 03:37 | External Medical Summary | Summary of Care ---
Author Name Unknown Organization [facility] Address [address] [place] [address] Phone [phone] Care Team Providers Care Out And Out Cigar Maker Hand Name Role Phone Richard Marshall DO Primary Care Provider [phone] Reason for Visit * Reason Onset Date Comments Advice 05/19/2024 Alisson Follow Up 05/19/2024 S/P C1,D1 Carbo/ Taxol/Beva Encounter Details Date Type Department Care Team (Late st Contact Info) Description 05/19/2024 Telephone Access Center, [place] [address] [facility] *DO NOT REMOVE THIS DEPARTMENT* [place] [address] Services, Scheduling [address] [place] [address] Advice ([place] ); Follow Up (S/P C1... Allergies Active Allergy Reactions Criticality Noted Date Comments Iodinated Contrast Media 07/05/2021 "itchy, rash and hives" CT Scan documented as of this encounter (statuses as of 05/19/2024) Medications Medication Sig Dispensed Refills Start Date End Date Status Vitamin D (Cholecalciferol) 50 MCG (1999) Oral Capsule Take by mouth at bedtime. Active Ferrous Sulfate 325 (65 Fe) MG Oral Tablet (Feosol) Take 1 Tablet by mouth at bedtime. Active Stiolto Respimat 2.5-2.5 MCG/ACT Inhalation Aerosol Solution (Tiotropium [place]-Olodaterol)I ndications:COPD, severity to be determined (HCC) Inhale [...] 01/27/2024 Active Lactulose 10 GM/15ML Oral Solution (Constulose)Indicati [...] 05/12/2024 Active dexAMETHasone 4 MG Oral Tablet (Decadron)Indication s:Lung cancer metastatic to bone (HCC),Pain from bone metastases (HCC),Cancer, metastatic to bone (HCC),Lesion of thoracic vertebra Take 2 Tablets by mouth daily with breakfast. 60 Tablet 05/17/2024 Active Hospital, Clinic, or Other Facility Administered Medication Ordered Dose Route Frequency Start Date End Date Status bevaCIZumab (Avastin) inj 1.25 mgIndications:Radiation retinopathy, subsequent encounter 1.25 mg IZ PRN 10/08/2023 10/07/2024 Active ROPivacaine (Naropin) inj 1.5 mgIndications:Radiation retinopathy, subsequent encounter 1.5 mg IJ PRN 10/08/2023 10/07/2024 Active documented as of this encounter (statuses as of 05/19/2024) Active Problems Problem Noted Date Diagnosed Date [...] as of this encounter (statuses as of 05/19/2024) Resolved Problems Problem Noted Date Diagnosed Date Resolved Date COPD, group A, by GOLD 2017 classification 07/07/2022 04/07/2024 Overview: Per COPD GOLD Classification COPD, severity to be determined 07/09/2021 07/10/2022 Overview: Per COPD GOLD Classification documented as of this encounter (statuses as of 05/19/2024) Immunizations Name Administration Dates Next Due Covid-19 [...] No 05/22/2023 Does the household have a [facility] source of income? (Household - for ages [...] Telephone Encounter - David Burton RN - 05/19/2024 10:40 AM EDT HEMATOLOGY/ONCOLOGY INITIAL CHEMO FOLLOW-UP Post chemo side effects: Nose Bleed -- Having them for 5-10 minutes, able to stop by bridging nose, no blood thinners, no NSAIDS - pt is aware, advised to apply ice to help shrink capillaries in the nose Bone Pain -- 01/03 she states she just took her Oxy that's prescribed but is still able to do daily activities. Advised her this is common, take her pain medication as prescribed and symptoms should improve over the course of 3-5 days. Understands post treatment medications: Yes Understands to call office prior to ER visit/or with issues: Yes Aware of next appointment: Yes Additional information: Pt verbalized understanding of all instructions. * Telephone Encounter - Lanny Cabrera OSA - 05/19/2024 10:17 AM EDT Patient calling states shes been having bloody noses since her treatment and pain in her bones. asking to speak to a nurse. documented in this encounter Plan of Treatment Upcoming Encounters Date Type Department Care Team (Late st Contact Info) Description 06/06/2024 9:00 AM EST Laboratory Laboratory [facility] [address] [place] [phone] [place], Lab [facility] 200 [facility] [place] [place] [facility] [place] [address] 06/06/2024 9:30 AM EST Office Visit Hematology/Oncology [facility] [address] [place] [address] Nicole Vinson MD [address] [place] [address] [place] [phone] 06/06/2024 10:00 AM EST Hem/Onc Treatment Hematology/Oncology Treatment, [place] [address] [place] [phone] Shereen, Chair 11 Hem Onc [facility] [address] [facility] [place] [address] 06/13/2024 8:45 AM EST Imaging Radiology [address], [place] [address] [place] [address] 06/28/2024 8:30 AM EST Office Visit Ophthalmology, [facility] [address] [place] [address] Anthony Grey, DO [address] [place] [address] 03/10/2025 10:00 AM EDT Office Visit Sleep Disorders Ctr [facility] [address] [place] [phone] Margie Gutierrez, DO [address] [place] [address] Health Maintenance Due Date Last Done Comments [...] this encounter Medical Devices Implanted Type Area Deck Hand Device Identifier Shelf Expiration Date Model / Serial / Lot Port Implant W8f Poly Cath - [id number] Implanted:Qty : 1 on 04/20/2024 by Nathan Hardwick MD at OR [facility] Right: Chest CR BARD : PERIPHERAL VASCULAR [id number] 06/25/2025 [id number] / / [id number] documented as of this encounter Care Teams Out And Out Cigar Maker Hand Relationship Specialty Start Date End Date Richard Marshall DO [address] [place] [address] PCP - General Family Medicine 08/26/22 documented as of this encounter
--- OUTSIDE RECORDS SUMMARY | 2024-08-11 03:37 | External Medical Summary | Summary of Care ---
Author Name Unknown Organization [facility] Address [address] [facility] [place] [address] Phone [phone] Care Team Providers Care Reheat Furnace Operator Name Role Phone Richard Marshall DO Primary Care Provider [phone] Reason for Visit * Reason Comments Medication Administration Udencya * Episode Based Medications (Routine) - Pending Review Specialty Diagnoses / Procedures Referred By Contac t Referred To Contact Diagnoses Cancer, metastatic to bone (HCC) Lung cancer metastatic to bone (HCC) Encounter for antineoplastic chemotherapy Prevention of chemotherapy-induced neutropenia Procedures KS CARBOPLATIN INJECTION KS FOSAPREPITANT INJECTION KS INJ., ZIRABEV, 10 MG KS PACLITAXEL INJECTION KS INJECTION, UDENYCA 0.5 MG KS INJ MVASI 10 MG Nicole Vinson MD [address] [facility] [place] [address] Anc Hem/Onc [address] [address] Referral ID Status Reason Start Date Expiration Date V isits Requested Visits Authorized [id number] Pending Review 04/18/2024 05/26/2024 [id number] Encounter Details Date Type Department Care Team (Latest Contact Info) Description 05/17/2024 4:15 PM EDT Immunization/ Injection Hematology/[address]cology [address], [address] [address] Shereen, Chair 8 Hem Onc [address] [address] Cancer, metastatic to bone (HCC)*; Lung cancer metastatic to bone (HCC); Encounter for antineoplastic chemotherapy; Prevention of chemotherapy-induced neutropenia Allergies Active Allergy Reactions Criticality Noted Date Comments Iodinated Contrast Media 07/05/2021 "itchy, rash and hives" CT Scan documented as of this encounter (statuses as of 05/18/2024) Medications Medication Sig Dispensed Refills Start Date End Date Status Vitamin D (Cholecalciferol) 50 MCG (1999 [place]) Oral Capsule Take by mouth at bedtime. Active Ferrous Sulfate 325 (65 Fe) MG Oral Tablet (Feosol) Take 1 Tablet by mouth at bedtime. Active Stiolto Respimat 2.5-2.5 MCG/ACT Inhalation Aerosol Solution (Tiotropium [place]-Olodaterol) Indications:COPD, severity to be determined ([facility]) [...] as of this encounter (statuses as of 05/18/2024) Active Problems Problem Noted Date Diagnosed Date [...] as of this encounter (statuses as of 05/18/2024) Resolved Problems Problem Noted Date Diagnosed Date Resolved Date COPD, group A, by GOLD 2017 classification 07/07/2022 04/07/2024 Overview: Per COPD GOLD Classification COPD, severity to be determined 07/09/2021 07/10/2022 Overview: Per COPD GOLD Classification documented as of this encounter (statuses as of 05/18/2024) Immunizations Name Administration Dates Next Due Covid-19 [...] on file documented as of this encounter Nursing Notes * Adrianna Neff LPN - 05/17/2024 4:08 PM EDT Pt arrived for Udencya injection. Administered in JOSE M. Pt tolerated well. To return in 3 weeks. Discharged in stable condition. documented in this encounter Plan of Treatment Upcoming Encounters Date Type Department Care Team (Late st Contact Info) Description 06/06/2024 9:00 AM EST Laboratory Laboratory [facility] [address] [place] [phone] [place], Lab [address] [facility] [place] [address] 06/06/2024 9:30 AM EST Office Visit Hematology/Oncology [facility] [place] [address] [place] [phone] Nicole Vinson MD [address] [place] [address] [place] [address] 06/06/2024 10:00 AM EST Hem/Onc Treatment Hematology/Oncology Treatment, [place] [address] [place] [phone] Shereen, Chair 11 Hem Onc [facility] 200 [facility] [place] [address] 06/13/2024 8:45 AM EST Imaging Radiology [facility] 1st Floor, [place] 132 [facility] [place] [address] 06/28/2024 8:30 AM EST Office Visit Ophthalmology, [facility] 132 [facility] [place] [address] Anthony Grey, DO [address] [place] [address] 03/10/2025 10:00 AM EDT Office Visit Sleep Disorders Ctr [facility] 132 [facility] [place] [phone] Margie Gutierrez, DO [address] [place] [address] Health Maintenance Due Date Last Done Comments [...] this encounter Medical Devices Implanted Type Area Gamemaster Device Identifier Shelf Expiration Date Model / Serial / Lot Port Implant W8f Poly Cath - [id number] Implanted:Qty : 1 on 04/20/2024 by Nathan Hardwick MD at OR [facility] Right: Chest CR BARD : PERIPHERAL VASCULAR [id number] 06/25/2025 [id number] / / [id number] documented as of this encounter Visit Diagnoses Diagnosis Cancer, metastatic to bone (HCC)- Primary Secondary malignant neoplasm of bone and bone marrow Lung cancer metastatic to bone (HCC) Encounter for antineoplastic chemotherapy Prevention of chemotherapy-induced neutropenia documented in this encounter Administered Medications Inactive Administered Medications - up to 3 most recent administrations Medication Order MAR Action Action Date Dose Rate Site Pegfilgrastim-cbqv (Udenyca) inj 6 mg 6 mg, Subcutaneous, ONCE, On Thu05/17/24 at 1630, For 1 dose Given 05/17/2024 4:01 PM EDT 6 mg Arm R ight Upper documented in this encounter Care Teams Reheat Furnace Operator Relationship Specialty Start Date End Date Richard Marshall DO [address] [place], [place] [phone] PCP - General Family Medicine 08/26/22 documented as of this encounter
--- OUTSIDE RECORDS SUMMARY | 2024-08-11 03:37 | External Medical Summary | Summary of Care ---
Author Name Unknown Organization [facility] Address [address] [facility] [place] [address] Phone [phone] Care Team Providers Care Purchasing Analyst Name Role Phone Richard Marshall DO Primary Care Provider [phone] Reason for Visit * Reason Onset Date Comments Precert Future 05/17/2024 [facility] Encounter Details Date Type Department Care Team (Late st Contact Info) Description 05/17/2024 Telephone Hematology/Oncology Treatment, [place] [address] [place] [address] Nicole Vinson MD 400 [facility] [place] [address] Precert Future ([facility]) Allergies Active Allergy Reactions Criticality Noted Date Comments Iodinated Contrast Media 07/05/2021 "itchy, rash and hives" CT Scan documented as of this encounter (statuses as of 06/02/2024) Medications Medication Sig Dispensed Refills Start Date End Date Status Vitamin D (Cholecalciferol) 50 MCG (1999) Oral Capsule Take by mouth at bedtime. Active Ferrous Sulfate 325 (65 Fe) MG Oral Tablet (Feosol) Take 1 Tablet by mouth at bedtime. Active Stiolto Respimat 2.5-2.5 MCG/ACT Inhalation Aerosol Solution (Tiotropium [place]-Olodaterol) Indications:COPD, severity to be determined (HCC) Inhale [...] as of this encounter (statuses as of 06/02/2024) Active Problems Problem Noted Date Diagnosed Date [...] as of this encounter (statuses as of 06/02/2024) Resolved Problems Problem Noted Date Diagnosed Date Resolved Date COPD, group A, by GOLD 2017 classification 07/07/2022 04/07/2024 Overview: Per COPD GOLD Classification COPD, severity to be determined 07/09/2021 07/10/2022 Overview: Per COPD GOLD Classification documented as of this encounter (statuses as of 06/02/2024) Immunizations Name Administration Dates Next Due Covid-19 [...] Description 06/06/2024 9:00 AM EST Laboratory Laboratory [facility] [place] [address] [place] [phone] [place] [address] [facility] [place] [address] 06/06/2024 9:30 AM EST Office Visit Hematology/Oncology [facility] [place] [address] [place] [phone] Nicole Vinson MD [address] [place] [address] [place] [phone] 06/06/2024 10:00 AM EST Hem/Onc Treatment Hematology/Oncology Treatment, [place] [address] [place] [phone] Shereen, Chair 11 Hem Onc [facility] [address] [place] [address] 06/13/2024 8:45 AM EST Imaging Radiology [facility] 1st Floor, [place] 132 [facility] [place] [address] 06/28/2024 8:30 AM EST Office Visit Ophthalmology, [facility] [address] [place] [address] Junior Greydillonelaine Olivo, DO [address] [place] [address] 03/10/2025 10:00 AM EDT [facility] [address] [place] [phone] Margie Gutierrez, DO [address] [place] [address] Health Maintenance Due Date Last Done Comments [...] this encounter Medical Devices Implanted Type Area Melter Helper Device Identifier Shelf Expiration Date Model / Serial / Lot Port Implant W8f Poly Cath - [id number] Implanted:Qty : 1 on 04/20/2024 by Nathan Hardwick MD at OR [facility] Right: Chest CR BARD : PERIPHERAL VASCULAR [id number] 06/25/2025 [id number] / / [id number] documented as of this encounter Care Teams Purchasing Analyst Relationship Specialty Start Date End Date Richard Marshall DO [address] [place] [address] PCP - General Family Medicine 08/26/22 documented as of this encounter
--- OUTSIDE RECORDS SUMMARY | 2024-08-11 03:37 | External Medical Summary | Summary of Care ---
Author Name Unknown Organization [facility] Address [address] [facility] [place] [address] Phone [phone] Care Team Providers Care Continuous Wave Operator Name Role Phone Richard Marshall DO Primary Care Provider [phone] Reason for Visit * Reason Onset Date Comments Medication Refill 05/17/2024 Encounter Details Date Type Department Care Team (Late st Contact Info) Description 05/17/2024 Refill Hematology/Oncology Treatment, [place] [address] [place] [address] Nicole Vinson MD [address] [place] [address] Lung cancer metastatic to bone (HCC); Pain from bone metastases (HCC); Cancer, metastatic to bone (HCC); Lesion of thoracic vertebra Allergies Active Allergy Reactions Criticality Noted Date [...] Respimat 2.5-2.5 MCG/ACT Inhalation Aerosol Solution (Tiotropium [place]-Olodaterol) Indications:COPD, severity to be determined ([facility]) Inhale 2 Puffs by mouth daily. [...] daily with breakfast. 60 Tablet 05/17/2024 Active dexAMETHasone 4 MG Oral Tablet (Decadron)Indicatio [...] Encounter - Whit Martinez RN - 05/17/2024 3:57 PM EDT Patient here for udtheeyca. Patient states that Dr Valles told her yesterday that she would send in a rx for decadron, but she called her pharmacy and they did not receive it. She confirmed that she is taking 8mg PO in the morning. Only has 1-2 days left at home. documented in this encounter Plan of Treatment Upcoming Encounters Date Type Department Care Team (Late st Contact Info) Description 06/06/2024 9:00 AM EST Laboratory Laboratory [facility] [address] [facility] [place] [phone] [place], [facility] 200 [facility] [place] [address] 06/06/2024 9:30 AM EST Office Visit Hematology/Oncology [facility] [place] 200 [facility] [place] [phone] Nicole Vinson MD [address] [place], [place] [address] [address] 06/06/2024 10:00 AM EST Hem/Onc Treatment Hematology/Oncology Treatment, [place] [address] [facility] [address] [place] [phone] Shereen, Chair 11 Hem Onc [facility] 200 [facility] [place] [address] 06/13/2024 8:45 AM EST Imaging Radiology [facility] 1st Floor, [place] 132 [facility] [place] [address] 06/28/2024 8:30 AM EST Office Visit Ophthalmology, [facility] 132 [facility] [place] [address] Anthony Grey, DO [address] [place] [address] 03/10/2025 10:00 AM EDT [facility] [address] [place] [phone] Margie Gutierrez, DO [address] [place] [address] Health Maintenance Due Date Last Done Comments [...] this encounter Medical Devices Implanted Type Area Potato Peeler Device Identifier Shelf Expiration Date Model / Serial / Lot Port Implant W8f Poly Cath - [id number] Implanted:Qty : 1 on 04/20/2024 by Nathan Hardwick MD at [facility] Right: Chest CR BARD : PERIPHERAL VASCULAR [id number] 06/25/2025 [id number] / / [id number] documented as of this encounter Visit Diagnoses Diagnosis Lung cancer metastatic to bone (HCC) Pain from bone metastases (HCC) Cancer, metastatic to bone (HCC) Secondary malignant neoplasm of bone and bone marrow Lesion of thoracic vertebra documented in this encounter Care Teams Continuous Wave Operator Relationship Specialty Start Date End Date Richard Marshall DO [address] [place], [place] [phone] PCP - General Family Medicine 08/26/22 documented as of this encounter
--- OUTSIDE RECORDS SUMMARY | 2024-08-11 03:37 | External Medical Summary | Summary of Care ---
Author Name Unknown Organization [facility] Address [address] [facility] [place] [address] Phone [phone] Care Team Providers Care Police Captain Name Role Phone Richard Marshall DO Primary Care Provider [phone] Reason for Referral * Precert (Within 24 hrs (call dept; emergent)) - Pending Review Specialty Diagnoses / Procedures Referred By Contac t Referred To Contact Radiology Diagnoses Lung cancer metastatic to bone (HCC) Procedures PET CT SKULL BASE TO MID-THIGH FDG Nicole Vinson MD [address] [place] [phone] Referral ID Status Reason Start Date Expiration Date V isits Requested Visits Authorized [id number] Pending Review 06/24/2024 999 999 Reason for Visit * Reason Comments Chemotherapy D1 Cycle 1 paclitaxe l, Carboplatinum, bevacizumab, zometa Follow Up Encounter Details Date Type Department Care Team (Late st Contact Info) Description 05/16/2024 12:30 PM EDT Office Visit Hematology/Oncology [facility] 200 [facility] [place] [address] Nicole Vinson MD [address] [place] [address] Lung cancer metastatic to bone (HCC)* Allergies Active Allergy Reactions Criticality Noted Date [...] Respimat 2.5-2.5 MCG/ACT Inhalation Aerosol Solution (Tiotropium [place]-Olodaterol)I ndications:COPD, severity to be determined (HCC) Inhale [...] on file documented as of this encounter Progress Notes * Nicole Vinson MD - 05/17/2024 10:16 AM EDT Date of visit: 05/16/2024 Chief Complaint Patient presents with Chemotherapy D1 Cycle 1 paclitaxel, Carboplatinum, bevacizumab, zometa Follow Up Subjective Lanny Andrews is a 59 year old female, presents for follow up re: met. NSCLC (adenocarcinoma) with LN and osseous mets. Patient was seen by radiation oncologist, Dr. Elton Schaefer on 04/27/2024 ans she has completed XRT to the left clavicle medial head and the T2 thoracic vertebra (5 concurrent clavicle and T2 vertebral radiation fractions) . The patient continues to have stable mid thoracic back pain as well as pain over her left clavicle-controlled with OxyContin 40 mg p.o. twice daily + Percocet 3/325- taking 2 tablets PO every 6 hoursfor breakthrough pain. 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 Previous treatments: 05/25/2011: Right middle lobectomy, adenocarcinoma stage I 2014: Wedge resection left lower lobe nodule-moderately differentiated [...] in the right hilum felt to be premium representative of previous scarring. Postsurgical changes noted [...] the lung. Labs performed on 04/04/2024 shows normal WBC, hemoglobin and hematocrit. Platelet count 405 (previously platelet count 435 on 07/09/2021). Normal WBC differential. CA 27.29 = 21 (within normal limits). CA 19-9 = 64.9 (normal <35). CEA = 3.2. D-dimer 0.61 (normal <0.5). LDH 311 (normal < 250). PT/INR normal. Hepatitis screening panel negative 04/04/2024: Seen for Medical Oncology consultation. Pt reports severe chest wall pain 8-910, worsewith breathing. She was prescribed oxycodone 5-10 [...] was seen by Dr. Ne burger on 03/31/2024 when Hematology-Oncology and Radiation Oncology evaluation was requested. She has [facility] consultation appt on 04/07/2024 at [facility], pt wants a closer ([place]). GI revaluation for lower para esophageal uptake assessment requested. On 04/04/2024 Dr. Mclaughlin entered order for EUS with bx to be performed on 04/12/2024. On pantoprazole Other medical conditions: Choroid Melanoma Rt Eye [...] 30 miles away from this cancer center. PATHOLOGY 04/12/2024: Paraesophageal, EUS guided fine needle aspiration: Poorly differentiated non-small cell carcinoma, favor adenocarcinoma. Comment: The histological sections of the cell block show epithelioid tumor cells with nuclear pleomorphism and eosinophilic cytoplasm within a background of granular debris and fibromuscular tissue without definitive lymphoid tissue. Immunohistochemical stains were performed with adequate controlson block A1 and show that the tumor cells are positive for CK7 and TTF1, while negative for CK20, CDX2, p40, and synaptophysin. Overall, the findings support a poorly differentiated non-small cell carcinoma, and favor a metastatic/recurrent adenocarcinoma of the lung given the patient's history. Nosquamous or neuroendocrine differentiation is seen. Molecular and [...] Respimat 2.5-2.5 MCG/ACT Inhalation Aerosol Solution (Tiotropium [place]-Olodaterol) Inhale2 Puffs by mouth daily. 12 g [...] morning and evening meals. 60 Tablet 3 dexAMETHasone 4 MG Oral Tablet (Decadron) Take 2 Tablets by mouth daily with breakfast. 60 Tablet 0 Lactulose 10 GM/15ML Oral Solution (Constulose) Take [...] 1HR PRIOR TO ACCESSING. 30 g 1 Current Facility-Administered Medications Medication Dose Route [...] pain (mid back and left collar bone pain). Skin: Negative. Allergic/Immunologic: Negative. Neurological: Negative. Hematological: Negative. Psychiatric/Behavioral: Negative. Objective There were no vitals taken for this visit. Vitals from the chemotherapy treatment suite: Blood pressure 119/76, pulse 76, respiratory rate 16,temperature afebrile 97.4 F, SpO2 94% on room air body weight 79 kg. Physical Exam Constitutional: General: She is not [...] not jaundiced or pale. Findings: No bruising. Neurological: General: No focal deficit present. Mental Status: She is alert and oriented to person, place, and time. ASSESSMENT/PLAN: Lanny Andrews is a 59-year-old female, who is currently a non- smoker, she has a 35 pack-year smoking history and has quit 10 years ago with a significant past medical history of recurrent pou-bnjtf-xdvw lung cancer (adenocarcinoma) that has recurrent several times (>3 times per pt- received treatment in [facility]), status post multiple surgical interventions between 2010, 2014 and 2019 including RML resection, LLL partial lobectomy, SBRT 2014, SHIKHA VATS 2019 with stable residual right upper lobe ground-glass changes on periodic CT surveillance, history of right eye choroidmelanoma on Avastin intravitreal injection therapy. -Chemo Consent: 04/18/24 -Chemo Education: Schedule after RT -Port Placement: completed on 04/20/2024 - Seen by Ophthalmology on 04/26/2024 for right eye radiation retinopathy and received intra vitreal Avastin injection. Lung cancer metastatic to bone (HCC) (Primary) - ALTERATION OF TREATMENT PLAN - PET CT SKULL BASE TO MID-THIGH FDG; Future; Expected date: 06/24/2024 PLAN OF CARE DISCUSSED WITH PATIENT ON 05/16/2024 : Patient received cycle 1 , day 1 of Carboplatinum, paclitaxel, bevacizumab and Zometa. Patient has tolerated radiation therapy well and does not have any new complaints or concerns Continue the pain medication. She is currently on OxyContin 40 mg p.o. twice daily with breakthrough Percocet that she has needed to take 1-3 times per day. Will start tapering Dexamethasone 8 mg daily due to T2 vertebral pain- prescription sent to your pharmacy. Continue Oxycontin 40 mg every 12 hours for long-acting pain relief since you are needing to take 8pecocet tablets per day for pain relief. Oxycontin prescription sent to your pharmacy. Continue taking percocet 1-2 tablets prn for breakthrough pain- last refilled #60 on 04/15/2024. Lactulose prescription sent to your pharmacy. Follow up with me in 3 weeks Will get PET scan around 06/15/2024 for treatment response just prior to the c3. Nicole Vinson MD documented in this encounter Plan of Treatment Upcoming Encounters Date Type Department Care Team (Late st Contact Info) Description 05/17/2024 4:15 PM EDT Immunization/Injecti on Hematology/Oncology Treatment, [place] [facility] [phone] [place], Chair 8 Hem Onc [address] [place] [address] 06/06/2024 9:00 AM EST Laboratory Laboratory [facility] [place] 200 [facility] [place] [phone] [place], Lab [facility] 200 [facility] [place] [address] 06/06/2024 9:30 AM EST Office Visit Hematology/Oncology [facility] [place] 200 [facility] [place] [address] Nicole Vinson MD [address] [place] [address] [place] [phone] 06/06/2024 10:00 AM EST Hem/Onc Treatment Hematology/Oncology Treatment, [place] [address] [facility] [phone] She[place], Chair 11 Hem Onc [facility] 200 [facility] [place] [address] 06/13/2024 8:45 AM EST Imaging Radiology [address], [place] 132 [facility] [place] [address] 06/28/2024 8:30 AM EST Office Visit Ophthalmology, [facility] [address] [place] [address] Anthony Grey, DO [address] [place] [address] 03/10/2025 10:00 AM EDT Office Visit Sleep Disorders Ctr [facility] [address] [place] [phone] Margie Gutierrez, DO [address] [place] [address] Scheduled Orders Name Type Priority Associated Diagnoses Orde r Schedule PET CT SKULL BASE TO MID-THIGH FDG Medical Imaging STAT Lung cancer metastatic to bone (HCC) Expected: 06/24/2024 (Approximate), Expires: 06/17/2025 Health Maintenance Due Date Last Done Comments [...] this encounter Medical Devices Implanted Type Area Petroleum Products District Supervisor Device Identifier Shelf Expiration Date Model / Serial / Lot Port Implant W8f Poly Cath - [id number] Implanted:Qty : 1 on 04/20/2024 by Nathan Hardwick MD at OR [facility] Right: Chest CR BARD : PERIPHERAL VASCULAR [id number] 06/25/2025 [id number] / / [id number] documented as of this encounter Visit Diagnoses Diagnosis Lung cancer metastatic to bone (HCC)- Primary documented in this encounter Care Teams Police Captain Relationship Specialty Start Date End Date Richard Marshall DO [address] [place] [address] PCP - General Family Medicine 08/26/22 documented as of this encounter
--- OUTSIDE RECORDS SUMMARY | 2024-08-11 03:37 | External Medical Summary | Summary of Care ---
Author Name Unknown Organization [facility] Address [address] [facility] [place] [address] Phone [phone] Care Team Providers Care Filter Worker Name Role Phone Richard Marshall DO Primary Care Provider [phone] Reason for Visit * Reason Comments Medication Administration Udencya * Episode Based Medications (Routine) - Pending Review Specialty Diagnoses / Procedures Referred By Contac t Referred To Contact Diagnoses Cancer, metastatic to bone (HCC) Lung cancer metastatic to bone (HCC) Encounter for antineoplastic chemotherapy Prevention of chemotherapy-induced neutropenia Procedures MN CARBOPLATIN INJECTION MN FOSAPREPITANT INJECTION MN INJ., ZIRABEV, 10 MG MN PACLITAXEL INJECTION MN INJECTION, UDENYCA 0.5 MG MN INJ MVASI 10 MG Nicole Vinson MD 400 [facility] [place] [address] Anc Hem/Onc [address] [address] Referral ID Status Reason Start Date Expiration Date V isits Requested Visits Authorized [id number] Pending Review 04/18/2024 05/26/2024 999 999 Encounter Details Date Type Department Care Team (Latest Contact Info) Description 05/17/2024 4:15 PM EDT Immunization/ Injection Hematology/Oncology Treatment, [address] [address] Shereen, Chair 8 Hem Onc [address] [address] Cancer, metastatic to bone (HCC)*; Lung cancer metastatic to bone (HCC); Encounter for antineoplastic chemotherapy; Prevention of chemotherapy-induced neutropenia Allergies Active Allergy Reactions Criticality Noted Date Comments Iodinated Contrast Media 07/05/2021 "itchy, rash and hives" CT Scan documented as of this encounter (statuses as of 05/20/2024) Medications Medication Sig Dispensed Refills Start Date End Date Status Vitamin D (Cholecalciferol) 50 MCG (1999 UT) Oral Capsule Take by mouth at bedtime. Active Ferrous Sulfate 325 (65 Fe) MG Oral Tablet (Feosol) Take 1 Tablet by mouth at bedtime. Active Stiolto Respimat 2.5-2.5 MCG/ACT Inhalation Aerosol Solution (Tiotropium [place]-Olodaterol) Indications:COPD, severity to be determined ([facility]) Inhale 2 Puffs by mouth [...] as of this encounter (statuses as of 05/20/2024) Active Problems Problem Noted Date Diagnosed Date [...] as of this encounter (statuses as of 05/20/2024) Resolved Problems Problem Noted Date Diagnosed Date Resolved Date COPD, group A, by GOLD 2017 classification 07/07/2022 04/07/2024 Overview: Per COPD GOLD Classification COPD, severity to be determined 07/09/2021 07/10/2022 Overview: Per COPD GOLD Classification documented as of this encounter (statuses as of 05/20/2024) Immunizations Name Administration Dates Next Due Covid-19 [...] Description 06/06/2024 9:00 AM EST Laboratory Laboratory [facility] [address] [place] [phone] [place], Lab [address] [facility] [place] [address] 06/06/2024 9:30 AM EST Office Visit Hematology/Oncology [facility] [place] [address] [place] [phone] Nicole Vinson MD [address] [place] [address] [place] [phone] 06/06/2024 10:00 AM EST Hem/Onc Treatment Hematology/Oncology Treatment, [place] [address] [place] [phone] Shereen, Chair 11 Hem Onc [facility] 200 [facility] [place] [address] 06/13/2024 8:45 AM EST Imaging Radiology [facility] 1st Floor, [place] 132 [facility] [place] [address] 06/28/2024 8:30 AM EST Office Visit Ophthalmology, [facility] 132 [facility] [place] [address] Anthony Grey, DO [address] [place] [address] 03/10/2025 10:00 AM EDT Office Visit Sleep Disorders Ctr [facility] 132 [facility] [place] [phone] Margie Gutierrez, DO [address] [place] [address] Health Maintenance Due Date Last Done Comments [...] this encounter Medical Devices Implanted Type Area Lead Instructor/Flight Attendant Device Identifier Shelf Expiration Date Model / Serial / Lot Port Implant W8f Poly Cath - [id number] Implanted:Qty : 1 on 04/20/2024 by Nathan Hardwick MD at OR [facility] Right: Chest CR BARD : PERIPHERAL VASCULAR [id number] 06/25/2025 [id number] / / [id number] documented as of this encounter Visit Diagnoses [...] Upper documented in this encounter Care Teams Filter Worker Relationship Specialty Start Date End Date Richard Marshall DO [address] [place], [place] [phone] PCP - General Family Medicine 08/26/22 documented as of this encounter
--- OUTSIDE RECORDS SUMMARY | 2024-08-11 03:37 | External Medical Summary | Summary of Care ---
Author Name Unknown Organization [facility] Address [address] [facility] [address] Phone [phone] Care Team Providers Care Housing Property Manager Name Role Phone Richard Marshall DO Primary Care Provider [phone] Reason for Visit * Reason Onset Date Comments Precert Future 05/17/2024 [facility] Encounter Details Date Type Department Care Team (Late st Contact Info) Description 05/17/2024 Telephone Hematology/Oncology Treatment, [place] [address] [place] [address] Nicole Vinson MD 400 [place] [address] Precert Future ([facility] [...] Respimat 2.5-2.5 MCG/ACT Inhalation Aerosol Solution (Tiotropium [place]-Olodaterol) Indications:COPD, severity to be determined (HCC) Inhale [...] Description 06/06/2024 9:00 AM EST Laboratory Laboratory [facility] [place] [address] [place] [phone] She[place], Lab [address] [facility] [place] [address] 06/06/2024 9:30 AM EST Office Visit Hematology/Oncology [facility] [place] [address] [place] [phone] Nicole Vinson MD [address] [place] [address] [place] [phone] 06/06/2024 10:00 AM EST Hem/Onc Treatment Hematology/Oncology Treatment, [place] [address] [place] [phone] Shereen, Chair 11 Hem Onc [address] [place] [address] 06/13/2024 8:45 AM EST Imaging Radiology [facility] 1st Floor, [place] [address] [place] [address] 06/28/2024 8:30 AM EST Office Visit Ophthalmology, [facility] [address] [place] [address] Anthony Grey, DO [address] [place] [address] 03/10/2025 10:00 AM EDT Office Visit Sleep Disorders Ctr [facility] [address] [place] [phone] Margie Gutierrez, DO [address] [place] [address] Health Maintenance Due Date Last Done Comments [...] this encounter Medical Devices Implanted Type Area Commercial Artist Device Identifier Shelf Expiration Date Model / Serial / Lot Port Implant W8f Poly Cath - [id number] Implanted:Qty : 1 on 04/20/2024 by Nathan Hardwick MD at OR [facility] Right: Chest CR BARD : PERIPHERAL VASCULAR [id number] 06/25/2025 [id number] / / [id number] documented as of this encounter Care Teams Housing Property Manager Relationship Specialty Start Date End Date Richard Marshall DO 16 [facility] [place] [address] PCP - General Family Medicine 08/26/22 documented as of this encounter
--- OUTSIDE RECORDS SUMMARY | 2024-08-11 03:37 | External Medical Summary | Summary of Care ---
Author Name Unknown Organization [facility] Address [address] [facility] [place] [address] Phone [phone] Care Team Providers Care Stereotype Finisher Name Role Phone Richard Marshall DO Primary Care Provider [phone] Reason for Visit * Reason Comments Medication [...] 0.[address] INJ MVASI 10 MG Nicole Vinson MD 400 [facility] [place] [phone] Anc Hem/Onc [address] [address] Referral ID Status Reason Start Date Expiration Date V isits Requested Visits Authorized [id number] Pending Review 04/18/2024 05/26/2024 999 999 Encounter Details Date Type Department Care Team (Latest Contact Info) Description 05/17/2024 4:15 PM EDT Immunization/ Injection Hematology/Oncology Treatment, [address] [phone] Shereen, Chair 8 Hem Onc [address] [phone] Cancer, metastatic to bone (HCC)*; Lung cancer [...] Respimat 2.5-2.5 MCG/ACT Inhalation Aerosol Solution (Tiotropium [place]-Olodaterol)I ndications:COPD, severity to be determined ([facility]) Inhale 2 Puffs by mouth daily. [...] Description 06/06/2024 9:00 AM EST Laboratory Laboratory [facility] [place] [address] [place] [phone] Shereen Lab [facility] [address] [facility] [place] [address] 06/06/2024 9:30 AM EST Office Visit Hematology/Oncology [facility] [place] [address] [place] [phone] Nicole Vinson MD [address] [place] [address] [place] [phone] 06/06/2024 10:00 AM EST Hem/Onc Treatment Hematology/Oncology Treatment, [place] [address] [place] [phone] Shereen, Chair 11 Hem Onc [facility] [address] [place] [address] 06/13/2024 8:45 AM EST Imaging Radiology [facility] 1st Floor, [place] [address] [place] [address] 06/28/2024 8:30 AM EST Office Visit Ophthalmology, [facility] [address] [place] [address] Anthony Grey, DO [address] [place] [address] 03/10/2025 10:00 AM EDT Office Visit Sleep Disorders Ctr [facility] 132 [facility] [place] [phone] Margie Gutierrez, DO [address] [place] [address] Health Maintenance Due Date Last Done Comments [...] this encounter Medical Devices Implanted Type Area Wire Preparation Machine Tender Device Identifier Shelf Expiration Date Model / Serial / Lot Port Implant W8f Poly Cath - [id number] Implanted:Qty : 1 on 04/20/2024 by Nathan Hardwick MD at OR [facility] Right: Chest CR BARD : PERIPHERAL VASCULAR [id number] 06/25/2025 [id number] / / [id number] documented as of this encounter Visit Diagnoses [...] Upper documented in this encounter Care Teams Stereotype Finisher Relationship Specialty Start Date End Date Richard Marshall DO 16 [place] [address] PCP - General Family Medicine 08/26/22 documented as of this encounter
--- OUTSIDE RECORDS SUMMARY | 2024-08-11 03:37 | External Medical Summary | Summary of Care ---
Author Name Unknown Organization [facility] Address [address] [facility] [place] [address] Phone [phone] Care Team Providers Care Teamcenter Solution Architect Name Role Phone Richard Marshall DO Primary Care Provider [phone] Reason for Visit * Reason Comments Medication Administration Udencya * Episode Based Medications (Routine) - Pending Review Specialty Diagnoses / Procedures Referred By Contac t Referred To Contact Diagnoses Cancer, metastatic to bone (HCC) Lung cancer metastatic to bone (HCC) Encounter for antineoplastic chemotherapy Prevention of chemotherapy-induced neutropenia Procedures ND CARBOPLATIN INJECTION ND FOSAPREPITANT INJECTION ND INJ., ZIRABEV, 10 MG ND PACLITAXEL INJECTION ND INJECTION, UDENYCA 0.5 MG ND INJ MVASI 10 MG Nicole Vinson MD 400 [facility] [place] [address] Anc Hem/Onc [address] [address] Referral ID Status Reason Start Date Expiration Date V isits Requested Visits Authorized [id number] Pending Review 04/18/2024 05/26/2024 [id number] Encounter Details Date Type Department Care Team (Latest Contact Info) Description 05/17/2024 4:15 PM EDT Immunization/ Injection Hematology/Oncology Treatment, [address] [address] Shereen, Chair 8 Hem Onc [address] [address] Cancer, metastatic to bone (HCC)*; Lung cancer [...] Respimat 2.5-2.5 MCG/ACT Inhalation Aerosol Solution (Tiotropium [place]-Olodaterol) Indications:COPD, severity to be determined ([facility] [...] Description 06/06/2024 9:00 AM EST Laboratory Laboratory [facility] [address] [place] [phone] [place], Lab [address] [facility] [place] [address] 06/06/2024 9:30 AM EST Office Visit Hematology/Oncology [facility] [place] [address] [place] [phone] Nicole Vinson MD [address] [place] [address] [place] [address] 06/06/2024 10:00 AM EST Hem/Onc Treatment Hematology/Oncology Treatment, [place] [address] [place] [phone] Shereen, Chair 11 Hem Onc [facility] 200 [facility] [place] [address] 06/13/2024 8:45 AM EST Imaging Radiology [facility] 1st Floor, [place] [address] [facility] [place] [address] 06/28/2024 8:30 AM EST Office Visit Ophthalmology, [facility] [address] [facility] [place] [address] Anthony Grey, DO [address] [place] [address] 03/10/2025 10:00 AM EDT Office Visit Sleep Disorders Ctr [facility] [address] [facility] [place] [phone] Margie Gutierrez, DO [address] [place] [address] Health Maintenance Due Date Last Done Comments [...] this encounter Medical Devices Implanted Type Area Jointer Submarine Cable Device Identifier Shelf Expiration Date Model / Serial / Lot Port Implant W8f Poly Cath - [id number] Implanted:Qty : 1 on 04/20/2024 by Nathan Hardwick MD at OR [facility] Right: Chest CR BARD : PERIPHERAL VASCULAR [id number] 06/25/2025 [id number] / / [id number] documented as of this encounter Visit Diagnoses [...] Upper documented in this encounter Care Teams Teamcenter Solution Architect Relationship Specialty Start Date End Date Richard Marshall DO [address] [place], [place] [phone] PCP - General Family Medicine 08/26/22 documented as of this encounter
--- OUTSIDE RECORDS SUMMARY | 2024-08-11 03:38 | External Medical Summary | Summary of Care ---
Author Name Unknown Organization [facility] Address [address] [facility] [place] [address] Phone [phone] Care Team Providers Care Webmaster Name Role Phone Richard Marshall DO Primary Care Provider [phone] Encounter Details Date Type Department Care Team (Late st Contact Info) Description 05/16/2024 Telephone Hematology/Oncology, [facility] [address] [facility] [place] [phone] Nicole Vinson MD 400 [place] [phone] Allergies Active Allergy Reactions Criticality Noted Date [...] Respimat 2.5-2.5 MCG/ACT Inhalation Aerosol Solution (Tiotropium [place]-Olodaterol)I ndications:COPD, severity to be determined (HCC) Inhale [...] Encounter - Whit Martinez RN - 05/17/2024 10:[address] Reena crews PET order. Please schedule at [facility]. Thanks! * Telephone Encounter - Tamiko Ray OSA - 05/16/2024 3:31 PM EDT Order is not in for pet unable to schedule Everything else for pt with provider dispo is in * Telephone Encounter - Tamiko Ray OSA - 05/16/2024 3:31 PM EDT Return in about 1 week (around 05/23/2024). Check out comments: Continue the current chemo - started today. Follow up with me in 3 weeks Will get PET scan around 06/15/2024 for treatment response documented in this encounter Plan of Treatment Upcoming Encounters Date Type Department Care Team (Late st Contact Info) Description 05/17/2024 4:15 PM EDT Immunization/Injecti on Hematology/Oncology Treatment, [address] [phone] Shereen, Chair 8 Hem Onc [address] [place] [address] 06/06/2024 9:00 AM EST Laboratory Laboratory [facility] [address] [place] [phone] Shereen, Lab [address] [place] [address] 06/06/2024 9:30 AM EST Office Visit Hematology/Oncology [address] [place] [phone] Nicole Vinson MD [address] [place] [address] [place] [address] 06/06/2024 10:00 AM EST Hem/Onc Treatment Hematology/Oncology Treatment, [address] [phone] Shereen, Chair 11 Hem Onc [facility] 200 [facility] [place] [address] 06/13/2024 8:45 AM EST Imaging Radiology [facility] 1st Floor, [place] 132 [facility] [place] [address] 06/28/2024 8:30 AM EST Office Visit Ophthalmology, [facility] 132 [facility] [place] [address] Anthony Grey, DO [address] [place] [address] 03/10/2025 10:00 AM EDT Office Visit Sleep Disorders Ctr [facility] 132 [facility] [place] [phone] Margie Gutierrez, DO [address] [place] [address] Health Maintenance Due Date Last Done Comments [...] this encounter Medical Devices Implanted Type Area Content Manager Device Identifier Shelf Expiration Date Model / Serial / Lot Port Implant W8f Poly Cath - [id number] Implanted:Qty : 1 on 04/20/2024 by Nathan Hardwick MD at [facility] Right: Chest CR BARD : PERIPHERAL VASCULAR [id number] 06/25/2025 [id number] / / [id number] documented as of this encounter Care Teams Webmaster Relationship Specialty Start Date End Date Richard Marshall DO 16 [place], [place] [phone] PCP - General Family Medicine 08/26/22 documented as of this encounter
--- OUTSIDE RECORDS SUMMARY | 2024-08-11 03:38 | External Medical Summary ---
Author Name Unknown Address Unknown Organization K09:[facility] [place] [address] Laboratory Report Ordering Provider Test Date Status EDD ROCHA 05/16/2024 10:58:25 Final Observation Date Value Abnormality Reference (Units ) Status Phosphate 05/16/2024 10:58:25 2.9 2.5-4.8 (m g/dL) Final Performing Location [facility] [place] [address]
--- OUTSIDE RECORDS SUMMARY | 2024-08-11 03:38 | External Medical Summary | Summary of Care ---
Author Name Unknown Organization [facility] Address [address] [facility] [place] [address] Phone [phone] Care Team Providers Care Surgical Nurse Practitioner Name Role Phone Richard Marshall DO Primary Care Provider [phone] Encounter Details Date Type Department Care Team (Late st Contact Info) Description 05/16/2024 Telephone Hematology/Oncology, [facility] 400 [facility] [place] [phone] Nicole Vinson MD 400 [place] [phone] Allergies Active Allergy Reactions Criticality Noted Date Comments Iodinated Contrast Media 07/05/2021 "itchy, rash and hives" CT Scan documented as of this encounter (statuses as of 05/16/2024) Medications Medication Sig Dispensed Refills Start Date End Date Status Vitamin D (Cholecalciferol) 50 MCG (1999) Oral Capsule Take by mouth at bedtime. Active Ferrous Sulfate 325 (65 Fe) MG Oral Tablet (Feosol) Take 1 Tablet by mouth at bedtime. Active Stiolto Respimat 2.5-2.5 MCG/ACT Inhalation Aerosol Solution (Tiotropium [place]-Olodaterol)I ndications:COPD, severity to be determined (HCC) Inhale [...] as of this encounter (statuses as of 05/16/2024) Active Problems Problem Noted Date Diagnosed Date [...] as of this encounter (statuses as of 05/16/2024) Resolved Problems Problem Noted Date Diagnosed Date Resolved Date COPD, group A, by GOLD 2017 classification 07/07/2022 04/07/2024 Overview: Per COPD GOLD Classification COPD, severity to be determined 07/09/2021 07/10/2022 Overview: Per COPD GOLD Classification documented as of this encounter (statuses as of 05/16/2024) Immunizations Name Administration Dates Next Due Covid-19 [...] AM EST Office Visit Hematology/Oncology [facility] 200 [place] [phone] Nicole Vinson MD [address] [place] [address] [place] [phone] 06/28/2024 8:30 AM EST Office Visit Ophthalmology, [facility] [address] [place] [address] Anthony Grey, DO [address] [place] [address] 03/10/2025 10:00 AM EDT Office Visit Sleep Disorders Ctr [facility] 132 [place] [phone] Margie Gutierrez, DO [address] [place] [address] Health Maintenance Due Date Last Done Comments [...] this encounter Medical Devices Implanted Type Area Ring Making Machine Operator Device Identifier Shelf Expiration Date Model / Serial / Lot Port Implant W8f Poly Cath - [id number] Implanted:Qty : 1 on 04/20/2024 by Nathan Hardwick MD at [facility] Right: Chest CR BARD : PERIPHERAL VASCULAR [id number] 06/25/2025 [id number] / / [id number] documented as of this encounter Care Teams Surgical Nurse Practitioner Relationship Specialty Start Date End Date Richard Marshall DO 16 [place] [address] PCP - General Family Medicine 08/26/22 documented as of this encounter
--- OUTSIDE RECORDS SUMMARY | 2024-08-11 03:38 | External Medical Summary | Summary of Care ---
Author Name Unknown Organization [facility] Address [address] [facility] [place] [address] Phone [phone] Care Team Providers Care Insurance Marketing Rep Name Role Phone Richard Marshall DO Primary Care Provider [phone] Encounter Details Date Type Department Care Team (Late st Contact Info) Description 05/16/2024 Telephone Hematology/Oncology, [facility] [address] [facility] [place] [phone] Nicole Vinson MD 400 [place] [phone] Allergies Active Allergy Reactions Criticality Noted Date [...] Respimat 2.5-2.5 MCG/ACT Inhalation Aerosol Solution (Tiotropium [place]-Olodaterol)I ndications:COPD, severity to be determined (HCC) Inhale [...] 06/06/2024 9:30 AM EST Office Visit Hematology/Oncology [facility] 200 [place] [address] Nicole Vinson MD [address] [place] [address] [place] [phone] 06/28/2024 8:30 AM EST Office Visit Ophthalmology, [facility] [address] [place] [address] Anthony Grey, DO [address] [place] [address] 03/10/2025 10:00 AM EDT Office Visit Sleep Disorders Ctr [facility] 132 [place] [phone] Margie Gutierrez, DO [address] [place] [address] Health Maintenance Due Date Last Done Comments [...] this encounter Medical Devices Implanted Type Area Chief Transfer And Pumphouse Operator Device Identifier Shelf Expiration Date Model / Serial / Lot Port Implant W8f Poly Cath - [id number] Implanted:Qty : 1 on 04/20/2024 by Nathan Hardwick MD at OR [facility] Right: Chest CR BARD : PERIPHERAL VASCULAR [id number] 06/25/2025 [id number] / / [id number] documented as of this encounter Care Teams Insurance Marketing Rep Relationship Specialty Start Date End Date Richard Marshall DO 16 [place] [address] PCP - General Family Medicine 08/26/22 documented as of this encounter
--- OUTSIDE RECORDS SUMMARY | 2024-08-11 03:38 | External Medical Summary | Summary of Care ---
Author Name Unknown Organization [facility] Address [address] [facility] [place] [address] Phone [phone] Care Team Providers Care Detailer Name Role Phone Richard Marshall DO Primary Care Provider [phone] Reason for Visit * Reason Onset Date Comments Outpatient Testing 04/21/2024 Kristina, Her 2 Encounter Details Date Type Department Care Team (Late st Contact Info) Description 04/21/2024 Telephone Hematology/Oncology Treatment, [place] [address] [place] [address] Nicole Vinson MD 400 [facility] [place] [address] Outpatient Testing (MyGenvar, Her2) Allergies Active Allergy Reactions Criticality Noted Date [...] Respimat 2.5-2.5 MCG/ACT Inhalation Aerosol Solution (Tiotropium [place]-Olodaterol) Indications:COPD, severity to be determined ([facility]) Inhale 2 Puffs by mouth daily. [...] 01/27/2024 Active dexAMETHasone 4 MG Oral Tablet (Decadron)Indicatio ns:Lung cancer metastatic to bone (HCC),Pain from bone metastases (HCC),Cancer, metastatic to bone (HCC),Lesion of thoracic vertebra Take 2 Tablets by mouth daily with breakfast. 60 Tablet 04/18/2024 4 Active Lactulose 10 GM/15ML Oral Solution (Constulose)Indicat ions:Drug-induced constipation Take 30 mL by mouth in the morning and 30 mL before bedtime. 1992 mL 2 04/18/2024 Active oxyCODONE-Acetamino phen 5-325 MG Oral Tablet (Percocet)Indicatio ns:Lung cancer metastatic to bone (HCC) Take 2 Tablets by mouth every 6 hours as needed for Pain, Moderate. 60 Tablet 04/15/2024 4 Discontinue d(Refill) oxyCODONE HCl ER 40 MG Oral Tablet ER 12 Hour Abuse-Deterrent (OxyCONTIN)Indicati ons:Lung cancer metastatic to bone (HCC),Recurrent adenocarcinoma of lung, unspecified laterality (HCC),Pain from bone metastases (HCC),Cancer, metastatic to bone (HCC),Lesion of thoracic vertebra,Drug-induc ed constipation Take 1 Tablet by mouth in the morning and 1 Tablet before bedtime. 60 Tablet 04/18/2024 4 Discontinue d(Refill) Hospital, Clinic, or Other Facility Administered Medication [...] Encounter - Whit Martinez RN - 05/17/2024 9:10 AM EDT Alteration received, beacon updated. * Telephone Encounter - Whit Martinez RN - 05/13/2024 12:02 PM EDT Reviewed with Dr Valles- patient to continue bevacizumab, carbo, taxol for [address] Valles: please place an "alteration of treatment plan" order specifying that patient will receive 6 cycles of bevacizumab, carbo, taxol. Thanks! * Telephone Encounter - Whit Martinez RN - 05/11/2024 10:13 AM EDT Patient here for education. Patients understanding of her plan is that she is going to receive 3 cycles of bevacizumab, carboplatin, and taxol for 3 cycles, then have a PET scan, then receive 3 more cycles. However, Dr Valles was waiting for additional pathology results as her plan may change to keytruda after 1 cycle of bevacizumab, carboplatin, and taxol. Dr Valles: please advise on plan- patient requested to clarify with you, she is coming for cycle 1 juan f, carbo, taxol on Thursday05/16/24. Only 1 cycle of treatment ordered- will need new orders for furthertreatment. Thanks! * Telephone Encounter - Whit Martinez RN - 05/05/2024 10:53 AM EDT Results are back. Dr Valles: please review/ advise. Only 1 cycle of chemotherapy (bevacizumab, carboplatin, taxol) orderedpending results. If patient is to continue this treatment longer than one cycle, please place order for this. Thanks! * Telephone Encounter - Whit Martinez RN - 04/21/2024 2:[address] Valles, would like MyGenvar and Her2 added to biopsy. MyGenvar already in process. Placed order for Her2. documented in this encounter Plan of Treatment Upcoming Encounters Date Type Department Care Team (Late st Contact Info) Description 05/17/2024 4:15 PM EDT Immunization/Injecti on Hematology/Oncology Treatment, [address] [phone] Shereen, Chair 8 Hem Onc [address] [place] [address] 06/06/2024 9:00 AM EST Laboratory Laboratory [facility] [address] [place] [phone] [place], Lab [facility] 200 [facility] [place] [address] 06/06/2024 9:30 AM EST Office Visit Hematology/Oncology [facility] [address] [place] [phone] Nicole Vinson MD [address] [place], [place] [address]D[place] [address] 06/06/2024 10:00 AM EST Hem/Onc Treatment Hematology/Oncology Treatment, [address] [phone] Shereen, Chair [address] [facility] 200 [place] [address] 06/28/2024 8:30 AM EST Office Visit Ophthalmology, [facility] [address] [place] [address] Anthony Grey, DO [address] [place] [address] 03/10/2025 10:00 AM EDT Office Visit Sleep Disorders Ctr [facility] [address] [place] [phone] Margie Gutierrez, DO [address] [place] [address] Health Maintenance Due Date Last Done Comments [...] this encounter Medical Devices Implanted Type Area Tinter Photograph Device Identifier Shelf Expiration Date Model / Serial / Lot Port Implant W8f Poly Cath - [id number] Implanted:Qty : 1 on 04/20/2024 by Nathan Hardwick MD at OR [facility] Right: Chest CR BARD : PERIPHERAL VASCULAR [id number] 06/25/2025 [id number] / / [id number] documented as of this encounter Procedures Procedure Name Priority Date/Time Associated Diagnosis Comments ANATOMIC PATHOLOGY (BM/SURGICAL/CYTOLO GY) ADD ON REQUEST Routine 04/21/2024 2:07 PM EDT Lung cancer metastatic to bone (HCC) documented in this encounter Results * ANATOMIC PATHOLOGY (BM/SURGICAL/CYTOLOGY) ADD ON REQUEST (04/21/2024 2:07 PM EDT) 04/21/2024 2:07 PM EDT 04/21/2024 2:07 PM EDT Narrative [facility] - 04/25/2024 8:29 AM EDT Her2 Ordered by: Dr. Nicole Vinson TT to 04/21/24 JCD Per SM ordered 04/21/24 JCD Nicole Vinson MD LAB BLOOD ORDERABLES [facility] [address] [place] [address] documented in this encounter Visit Diagnoses Diagnosis Lung cancer metastatic to bone (HCC)- Primary documented in this encounter Care Teams Detailer Relationship Specialty Start Date End Date Richard Marshall DO 16 [place], [place] [phone] PCP - General Family Medicine 08/26/22 documented as of this encounter
--- OUTSIDE RECORDS SUMMARY | 2024-08-11 03:38 | External Medical Summary | Summary of Care ---
Author Name Unknown Organization [facility] Address [address] [facility] [place] [address] Phone [phone] Care Team Providers Care Recruitment Director Name Role Phone Richard Marshall DO Primary Care Provider [phone] Encounter Details Date Type Department Care Team (Late st Contact Info) Description 05/16/2024 Telephone Hematology/Oncology, [facility] [address] [facility] [place] [phone] Nicole Vinson MD 400 [place] [phone] Allergies Active Allergy Reactions Criticality Noted Date [...] Respimat 2.5-2.5 MCG/ACT Inhalation Aerosol Solution (Tiotropium [place]-Olodaterol)I ndications:COPD, severity to be determined (HCC) Inhale [...] Telephone Encounter - Tamiko Ray OSA - 05/17/2024 11:10 AM EDT Pet scheduled according to dispo Pt is aware * Telephone Encounter - Whit Martinez RN - 05/17/2024 10:[address] Valles placed PET order. Please schedule at [facility]. Thanks! [...] 4:15 PM EDT Immunization/Injecti on Hematology/Oncology Treatment, [place] [address] [place] [phone] Shereen, Chair 8 Hem Onc [address] [place] [address] 06/06/2024 9:00 AM EST Laboratory Laboratory [facility] [place] [address] [place] [phone] Shereen Lab [facility] 200 [facility] [place] [address] 06/06/2024 9:30 AM EST Office Visit Hematology/Oncology [facility] [place] [address] [place] [phone] Nicole Vinson MD [address] [place] [address] [place] [phone] 06/06/2024 10:00 AM EST Hem/Onc Treatment Hematology/Oncology Treatment, [place] [address] [place], [place] [phone] hSereen, Chair 11 Hem Onc [facility] [address] [place], [place] [address] 06/13/2024 8:45 AM EST Imaging Radiology [facility] 1st Floor, [place] [address] [place] [address] 06/28/2024 8:30 AM EST Office Visit Ophthalmology, [facility] [address] [place] [address] Anthony Grey, DO [address] [place] [address] 03/10/2025 10:00 AM EDT Office Visit Sleep Disorders Ctr [facility] [address] [place] [phone] Margie Gutierrez, DO [address] [place] [address] Health Maintenance Due Date Last Done Comments [...] this encounter Medical Devices Implanted Type Area Hydro Mechanic Device Identifier Shelf Expiration Date Model / Serial / Lot Port Implant W8f Poly Cath - [id number] Implanted:Qty : 1 on 04/20/2024 by Nathan Hardwick MD at OR [facility] Right: Chest CR BARD : PERIPHERAL VASCULAR [id number] 06/25/2025 [id number] / / [id number] documented as of this encounter Care Teams Recruitment Director Relationship Specialty Start Date End Date Richard Marshall DO 16 [place] [address] PCP - General Family Medicine 08/26/22 documented as of this encounter
--- OUTSIDE RECORDS SUMMARY | 2024-08-11 03:38 | External Medical Summary | Summary of Care ---
Author Name Unknown Organization [facility] Address [address] [facility] [place] [address] Phone [phone] Care Team Providers Care Carpet Repairer Name Role Phone Richard Marshall DO Primary Care Provider [phone] Reason for Visit * Reason Comments Chemotherapy [...] 0.5 MG NE INJ MVASI 10 MG Nicole Vinson MD [address] [place] [address] [place] [address] Anc Hem/Onc Scenery [address] [address] Referral ID Status Reason Start Date Expiration Date V isits Requested Visits Authorized [id number] Authorized 04/18/2024 05/26/2024 [id number] Encounter Details Date Type Department Care Team (Latest Contact Info) Description 05/16/2024 10:30 AM EDT Hem/Onc Treatment Hematology/Oncolog y Treatment, [address] [address] Shereen Chair 9 Hem Onc Scenery [address] [place], [place] [address] [address] Lung cancer metastatic to bone (HCC)*; Cancer, [...] Respimat 2.5-2.5 MCG/ACT Inhalation Aerosol Solution (Tiotropium Alpha-Olodaterol)I ndications:COPD, severity to be determined ([facility]) Inhale 2 Puffs by mouth daily. 12 [...] on file documented as of this encounter Last Filed [...] 4:15 PM EDT Immunization/Injecti on Hematology/Oncology Treatment, [place] [address] [place] [phone] Shereen, Chair 8 Hem Onc Scenery [address] [place] [address] 06/06/2024 9:00 AM EST Laboratory Laboratory [facility] [place] [address] [place] [phone] Shereen, Lab [facility] [address] [facility] [place] [address] 06/06/2024 9:30 AM EST Office Visit Hematology/Oncology [facility] [address] [place] [phone] Nicole Vinson MD [address] [place] [address] [place] [phone] 06/06/2024 10:00 AM EST Hem/Onc Treatment Hematology/Oncology Treatment, [place] [address] [facility] [phone] Shereen, Chair 11 Hem Onc [facility] [address] [place] [address] 06/28/2024 8:30 AM EST Office Visit Ophthalmology, [facility] [address] [place] [address] Anthony Grey, DO [address] [place] [address] 03/10/2025 10:00 AM EDT Office Visit Sleep Disorders Ctr [facility] [address] [place] [phone] Margie Gutierrez, DO [address] [place] [address] Health Maintenance Due Date Last Done Comments [...] this encounter Medical Devices Implanted Type Area Face Hardener Device Identifier Shelf Expiration Date Model / Serial / Lot Port Implant W8f Poly Cath - [id number] Implanted:Qty : 1 on 04/20/2024 by Nathan Hardwick MD at [facility] Right: Chest CR BARD : PERIPHERAL VASCULAR [id number] 06/25/2025 [id number] / / [id number] documented as of this encounter Procedures Procedure Name Priority Date/Time Associated Diagnosis Comments PHOSPHORUS STAT 05/16/2024 10:58 AM EDT Lung cancer metastatic to bone (HCC) documented in this encounter Results * PHOSPHORUS (05/16/2024 10:58 AM EDT) Phosphorus 2.9 2.5 - 4.8 mg/dL 05/16/2024 11:24 AM EDT [facility] 56-02 Blood Venous blood specimen / Unknown Central Line / Unknown 05/16/2024 10:58 AM EDT 05/16/2024 11:01 AM EDT Nicole Vinson MD LAB BLOOD ORDERABLES [facility] [address] [place] [address] documented in this encounter Visit [...] ONCE PRN Other, Hypersensitivity Reaction, Starting on Thu05/16/24 at 1101, Until Thu05/17/24 at 1100, For 24 hours diphenhydrAMINE (Benadryl) inj 50 mg 50 mg, IV Push, ONCE PRN Other, Hypersensitivity Reaction, Starting on Thu05/16/24 at 1148, Until Thu05/17/24 at 1147, For 24 hours EPINEPHrine 1 MG/ML inj 0.3 mg 0.3 mg, Intramuscular, ONCE PRN Other, Hypersensitivity Reaction or Anaphylaxis, Starting on Thu05/16/24 at 1101, Until Thu05/17/24 at 1100, For 24 hours EPINEPHrine 1 MG/ML inj 0.3 mg 0.3 mg, Intramuscular, ONCE PRN Other, Hypersensitivity Reaction or Anaphylaxis, Starting on Thu05/16/24 at 1148, Until Thu05/17/24 at 1147, For 24 hours hEParin 100 UNIT/ML Lock Flush inj 500 Units 500 Units (5 mL), IV Lock, PRN Other, IV Flush, Starting on Thu05/16/24 at 1101, Until Thu05/17/24 at 1100, For 24 hours, Do not flush if lock, PICC, or central line not in place; IV infusing or unable to flush. Given 05/16/2024 4:42 PM EDT 500 Units Hydrocortisone Sod Suc (PF) (Solu-Cortef) inj 100 mg 100 mg, IV Push, ONCE PRN Other, Hypersensitivity Reaction, Starting on Thu05/16/24 at 1101, Until Thu05/17/24 at 1100, For 24 hours Hydrocortisone Sod Suc (PF) (Solu-Cortef) inj 100 mg 100 mg, IV Push, ONCE PRN Other, Hypersensitivity Reaction, Starting on Thu05/16/24 at 1148, Until Thu05/17/24 at 1147, For 24 hours LORAzepam (Ativan) tab 0.5 mg 0.5 mg, Oral, ONCE PRN Anxiety, Nausea, Starting on Thu05/16/24 at 1215, Until Discontinued NSS infusion Intravenous, at 50 mL/hr, PRN, Starting on Thu05/16/24 at 1215, Until Discontinued, Maintenance line Start Infusion 05/16/2024 11:08 AM EDT 50 mL/hr oxygen GAS Inhalation, OXYGEN, First dose on Thu05/16/24 at 1145, Until Discontinued, Device/Managed by: Low Flow Device, [...] saturation is greater than or equal to 93% oxygen GAS Inhalation, OXYGEN, First dose on Thu05/16/24 at 1600, Until Discontinued, Device/Managed by: Low [...] saturation is greater than or equal to 93% sodium chloride 0.9 % flush central line 10 mL 10 mL, IV Push, PRN Other, IV Flush, Starting on Thu05/16/24 at 1101, Until Thu05/17/24 at 1100, For 24 hours, Do not flush if lock, PICC, or central line not in place; IV infusing or unable to flush. Given 05/16/2024 4:42 PM EDT 10 mL Inactive Administered Medications - up to 3 most recent administrations Medication Order MAR Action Action Date Dose Rate Site bevaCIZumab-awwb (Mvasi) 1,100 mg in NSS 100 mL infusion 1,100 mg (rounded from 1,128 mg = 15 mg/kg 75.2 kg Treatment plan Recorded weight), IV Piggyback, ONCE, 1 dose, On Thu05/16/24 at 1145, Administer over 30 Minutes Start Infusion 05/16/2024 11:55 AM EDT 1,100 mg 210 mL/hr CARBOplatin (Paraplatin) 659 mg in D5W 250 mL infusion 659 mg (rounded from 659.4 mg, Target AUC = 6), IV Piggyback, at 510 mL/hr Administer over 30 Minutes, PROTECT FROM LIGHT, ONCE, 1 dose, On Thu05/16/24 at 1245 Start Infusion 05/16/2024 3:44 PM EDT 659 mg 510 mL/hr diphenhydrAMINE (Benadryl) cap 50 mg 50 mg, Oral, ONCE, On Thu05/16/24 at 1130, For 1 dose Given 05/16/2024 11:08 AM EDT 50 mg Famotidine (Pepcid) tab 20 mg 20 mg, Oral, ONCE, On Thu05/16/24 at 1130, For 1 dose Given 05/16/2024 11:19 AM EDT 20 mg Fosaprepitant Dimeglumine (Emend) 150 mg, ondansetron (Zofran) 16 mg, dexamethasone sodium phosphate 12 mg in NSS 250 mL Infusion 150 mg, IV Piggyback, ONCE, 1 dose, On Thu05/16/24 at 1215, Administer over 30 Minutes, Infuse over 30 minutes. Give 30 minutes prior to chemotherapy. Start Infusion 05/16/2024 11:10 AM EDT 150 mg 538.4 mL/hr PACLitaxel (Taxol) 368 mg in NSS 500 mL infusion 368 mg (200 mg/m2 1.84 m2 Treatment Plan BSA from Recorded weight), IV Piggyback, ONCE, 1 dose, On Thu05/16/24 at 1245, Administer over 180 Minutes, Administer through 0.22 micron low protein binding filter! Start Infusion 05/16/2024 12:40 PM EDT 368 mg 170 mL/hr Zoledronic Acid (Zometa) 4 mg in 100 mL PREMIX ivpb 4 mg, IV Piggyback, ONCE, 1 dose, On Thu05/16/24 at 1230 Start Infusion 05/16/2024 4:19 PM EDT 4 mg 400 mL/hr documented in this encounter Care Teams Carpet Repairer Relationship Specialty Start Date End Date Richard Marshall DO [address] [place] [phone] PCP - General Family Medicine 08/26/22 documented as of this encounter
--- OUTSIDE RECORDS SUMMARY | 2024-08-11 03:39 | External Medical Summary | Summary of Care ---
Author Name Unknown Organization [facility] Address [address] [place] [address] Phone [phone] Care Team Providers Care Performance Improvement Analyst Name Role Phone Richard Marshall DO Primary Care Provider [phone] Reason for Visit * Reason Onset Date Comments Information 05/09/2024 Encounter Details Date Type Department Care Team (Late st Contact Info) Description 05/09/2024 Telephone Hematology/Oncology Treatment, [place] [address] [place] [address] Nicole Vinson MD [address] [facility] [place] [address] Information Allergies Active Allergy Reactions Criticality Noted Date Comments Iodinated Contrast Media 07/05/2021 "itchy, rash and hives" CT Scan documented as of this encounter (statuses as of 05/13/2024) Medications Medication Sig Dispensed Refills Start Date End Date Status Vitamin D (Cholecalciferol) 50 MCG (1999) Oral Capsule Take by mouth at bedtime. Active Ferrous Sulfate 325 (65 Fe) MG Oral Tablet (Feosol) Take 1 Tablet by mouth at bedtime. Active Stiolto Respimat 2.5-2.5 MCG/ACT Inhalation Aerosol Solution (Tiotropium [place]-Olodaterol) Indications:COPD, severity to be determined (HCC) Inhale [...] as of this encounter (statuses as of 05/13/2024) Active Problems Problem Noted Date Diagnosed Date [...] as of this encounter (statuses as of 05/13/2024) Resolved Problems Problem Noted Date Diagnosed Date Resolved Date COPD, group A, by GOLD 2017 classification 07/07/2022 04/07/2024 Overview: Per COPD GOLD Classification COPD, severity to be determined 07/09/2021 07/10/2022 Overview: Per COPD GOLD Classification documented as of this encounter (statuses as of 05/13/2024) Immunizations Name Administration Dates Next Due Covid-19 [...] Encounter - Whit Martinez RN - 05/13/2024 1:22 PM EDT Referral entered. * Telephone Encounter - David [place] RN - 05/13/2024 11:48 AM EDT Message sent to pre-cert to follow up on Auth as patient is scheduled on 05/16 for first treatment. * Telephone Encounter - Lisette Jackson OSA - 05/10/2024 9:10 AM EDT Team aware. Will look into auth * Telephone Encounter - Whit Martinez RN - 05/09/2024 3:48 PM EDT New start bevacizumab. Due to shortage/ discussion with pharmacy, changed beacon plan to MVASI. Precert: can you please check if insurance will cover mvasi instead of zirabev? Patient is scheduled to start treatment 05/16/24. Thanks! documented in this encounter Plan of Treatment Upcoming Encounters Date Type Department Care Team (Late st Contact Info) Description 05/16/2024 10:30 AM EDT Hem/Onc Treatment Hematology/Oncology Treatment, [place] [address] [place] [phone] Shereen, Chair 9 Hem Onc Scenery [address] [place] [address] 06/28/2024 8:30 AM EST Office Visit Ophthalmology, [facility] [address] [place] [address] Anthony Grey, DO [address] [place] [address] 03/10/2025 10:00 AM EDT Office Visit Sleep Disorders Ctr [facility] [address] [place] [phone] Margie Gutierrez, DO [address] [place] [address] Health Maintenance Due Date Last Done Comments [...] this encounter Medical Devices Implanted Type Area Capping Machine Operator Device Identifier Shelf Expiration Date Model / Serial / Lot Port Implant W8f Poly Cath - [id number] Implanted:Qty : 1 on 04/20/2024 by Nathan Hardwick MD at [facility] Right: Chest CR BARD : PERIPHERAL VASCULAR [id number] 06/25/2025 [id number] / / [id number] documented as of this encounter Care Teams Performance Improvement Analyst Relationship Specialty Start Date End Date Richard Marshall DO [address] [place] [address] PCP - General Family Medicine 08/26/22 documented as of this encounter
--- OUTSIDE RECORDS SUMMARY | 2024-08-11 03:39 | External Medical Summary ---
Author Name Unknown Address Unknown Organization K09:[facility] [place] [address] Laboratory Report Ordering Provider Test Date Status EDD ROCHA 05/11/2024 10:02:27 Final Observation Date Value Abnormality Reference (Units ) Status Color of Urine by Auto 05/11/2024 10:02:27 Yellow Light Yellow, Yellow, Dark Yellow Final Clarity, Urine 05/11/2024 10:02:27 Clear Clear Final Glucose [Mass/volume] in Urine by Automated test strip 05/11/2024 10:02:27 Negative Negative (mg/dL) Final Bilirubin.total [Presence] in Urine by Automated test strip 05/11/2024 10:02:27 Negative Negative Final Ketones [Mass/volume] in Urine by Automated test strip 05/11/2024 10:02:27 Negative Negative (mg/dL) Final Specific gravity, Urine 05/11/2024 10:02:27 >=1.030 1.003-1.030 Final Hemoglobin [Presence] in Urine by Automated test strip 05/11/2024 10:02:27 Trace Abnormal Negative Final pH, Urine 05/11/2024 10:02:27 5.5 5.0-7.5 (Units) Final Protein [Mass/volume] in Urine by Automated test strip 05/11/2024 10:02:27 Negative Negative (mg/dL) Final Urobilinogen [Mass/volume] in Urine by Automated test strip 05/11/2024 10:02:27 1.0 0.2, 1.0 (mg/dL) Final Nitrite [Presence] in Urine by Automated test strip 05/11/2024 10:02:27 Negative Negative Final Leukocyte esterase [Presence] in Urine by Automated test strip 05/11/2024 10:02:27 Negative Negative Final Performing Location [facility] [place] [address]
--- OUTSIDE RECORDS SUMMARY | 2024-08-11 03:39 | External Medical Summary | Summary of Care ---
Author Name Unknown Organization [facility] Address [address] [place] [address] Phone [phone] Care Team Providers Care Pattern Maker Name Role Phone Richard Marshall DO Primary Care Provider [phone] Reason for Visit * Reason Onset Date Comments Outpatient Testing 04/21/2024 Kristina, Her 2 Encounter Details Date Type Department Care Team (Late st Contact Info) Description 04/21/2024 Telephone Hematology/Oncology Treatment, [place] [address] [place] [address] Nicole Vinson MD [address] [facility] [place] [address] Outpatient Testing (My[facility], Her2) Allergies [...] Respimat 2.5-2.5 MCG/ACT Inhalation Aerosol Solution (Tiotropium [place]-Olodaterol) Indications:COPD, severity to be determined ([facility] [...] 10:30 AM EDT Hem/Onc Treatment Hematology/Oncology Treatment, [place] [address] [place] [phone] Shereen, Chair 9 Hem Onc Scenery [address] [facility] [address] 06/28/2024 8:30 AM EST Office Visit Ophthalmology, [facility] [address] [place] [address] Anthony Grey, DO [address] [place] [address] 03/10/2025 10:00 AM EDT Office Visit Sleep Disorders Ctr [facility] [address] [place] [phone] Margie Gutierrez, DO [address] [place] [address] Health Maintenance Due Date Last Done Comments [...] this encounter Medical Devices Implanted Type Area Typer Device Identifier Shelf Expiration Date Model / Serial / Lot Port Implant W8f Poly Cath - [id number] Implanted:Qty : 1 on 04/20/2024 by Nathan Hardwick MD at [facility] Right: Chest CR BARD : PERIPHERAL VASCULAR [id number] 06/25/2025 [id number] / / [id number] documented as of this encounter Procedures Procedure Name Priority Date/Time Associated Diagnosis Comments ANATOMIC PATHOLOGY (BM/SURGICAL/CYTOLO GY) ADD ON REQUEST Routine 04/21/2024 2:07 PM EDT Lung cancer metastatic to bone (HCC) documented in this encounter Results * ANATOMIC PATHOLOGY (BM/SURGICAL/CYTOLOGY) ADD ON REQUEST (04/21/2024 2:07 PM EDT) 04/21/2024 2:07 PM EDT 04/21/2024 2:07 PM EDT Narrative [facility] - 04/25/2024 8:29 AM EDT Her2 Ordered by: Dr. Nicole Vinson TT to SM 04/21/24 JCD Per SM ordered 04/21/24 JCD Nicole Vinson MD LAB BLOOD ORDERABLES [facility] [address] [place] [address] documented in this encounter Visit Diagnoses Diagnosis Lung cancer metastatic to bone (HCC)- Primary documented in this encounter Care Teams Pattern Maker Relationship Specialty Start Date End Date Richard Marshall DO [address] [place], [place] [phone] PCP - General Family Medicine 08/26/22 documented as of this encounter
--- OUTSIDE RECORDS SUMMARY | 2024-08-11 03:39 | External Medical Summary | Summary of Care ---
Author Name Unknown Organization [facility] Address [address] [facility] [address] Phone [phone] Care Team Providers Care Industrial Coffee Grinder Name Role Phone Richard Marshall DO Primary Care Provider [phone] Reason for Visit * Reason Onset Date Comments Encounter Created in Error 04/15/2024 Encounter Details Date Type Department Care Team (Late st Contact Info) Description 04/15/2024 Telephone Hematology/Oncology [facility], [facility] [place] [address] Nicole Vinson MD [address] [place] [address] Encounter Created in Error (/) Allergies Active Allergy Reactions Criticality Noted Date Comments Iodinated Contrast Media 07/05/2021 "itchy, rash and hives" CT Scan documented as of this encounter (statuses as of 05/15/2024) Medications Medication Sig Dispensed Refills Start Date End Date Status Vitamin D (Cholecalciferol) 50 MCG (1999) Oral Capsule Take by mouth at bedtime. Active Ferrous Sulfate 325 (65 Fe) MG Oral Tablet (Feosol) Take 1 Tablet by mouth at bedtime. Active Stiolto Respimat 2.5-2.5 MCG/ACT Inhalation Aerosol Solution (Tiotropium [place]-Olodaterol) Indications:COPD, severity to be determined (HCC) Inhale [...] evening meals. 60 Tablet 3 01/27/2024 Active Hospital, Clinic, or Other Facility Administered Medication Ordered Dose Route Frequency Start Date End Date Status bevaCIZumab (Avastin) inj 1.25 mgIndications:Radiation retinopathy, subsequent encounter 1.25 mg IZ PRN 10/08/2023 10/07/2024 Active ROPivacaine (Naropin) inj 1.5 mgIndications:Radiation retinopathy, subsequent encounter 1.5 mg IJ PRN 10/08/2023 10/07/2024 Active documented as of this encounter (statuses as of 05/15/2024) Active Problems Problem Noted Date Diagnosed Date [...] as of this encounter (statuses as of 05/15/2024) Resolved Problems Problem Noted Date Diagnosed Date Resolved Date COPD, group A, by GOLD 2017 classification 07/07/2022 04/07/2024 Overview: Per COPD GOLD Classification COPD, severity to be determined 07/09/2021 07/10/2022 Overview: Per COPD GOLD Classification documented as of this encounter (statuses as of 05/15/2024) Immunizations Name Administration Dates Next Due Covid-19 [...] No 05/22/2023 Does the household have a [facility] source of income? (Household - for ages [...] on file documented as of this encounter Plan of Treatment Upcoming Encounters Date Type Department Care Team (Late st Contact Info) Description 05/16/2024 10:30 AM EDT Hem/Onc Treatment Hematology/Oncology Treatment, [place] [address] [facility] [place] [phone] Shereen, Chair 9 Hem Onc Scenery [address] [place] [address] 06/28/2024 8:30 AM EST Office Visit Ophthalmology, [facility] [address] [place] [address] Anthony Grey, 132 [place] [address] 03/10/2025 10:00 AM EDT Office Visit Sleep Disorders Ctr [facility] [address] [place] [phone] Margie Gutierrez, DO [address] [place] [address] Health Maintenance Due Date Last Done Comments [...] this encounter Medical Devices Implanted Type Area Bessemer Converter Operator Device Identifier Shelf Expiration Date Model / Serial / Lot Port Implant W8f Poly Cath - [id number] Implanted:Qty : 1 on 04/20/2024 by Nathan Hardwick MD at [facility] Right: Chest CR BARD : PERIPHERAL VASCULAR [id number] 06/25/2025 [id number] / / [id number] documented as of this encounter Care Teams Industrial Coffee Grinder Relationship Specialty Start Date End Date Richard Marshall DO [address] [place], [place] [phone] PCP - General Family Medicine 08/26/22 documented as of this encounter
--- OUTSIDE RECORDS SUMMARY | 2024-08-11 03:39 | External Medical Summary | Summary of Care ---
Author Name Unknown Organization [facility] Address [address] [facility] [place] [address] Phone [phone] Care Team Providers Care Water Treatment Plant Repairer Name Role Phone Richard Marshall DO Primary Care Provider [phone] Reason for Visit * Reason Comments Education Encounter Details Date Type Department Care Team (Latest Contact Info) Description 05/11/2024 9:00 AM EDT Pt Ed by Nurse Hematology/Oncology Karla Regan [place] [address] [place] [address] Nurse Shereen Hem Onc [facility] [address] [place] [address] Cancer, metastatic to bone (HCC)*; Lung cancer metastatic to bone (HCC); Encounter for antineoplastic chemotherapy; Prevention of chemotherapy-induced neutropenia Allergies Active Allergy Reactions Criticality Noted Date Comments Iodinated Contrast Media 07/05/2021 "itchy, rash and hives" CT Scan documented as of this encounter (statuses as of 05/11/2024) Medications Medication Sig Dispensed Refills Start Date End Date Status Vitamin D (Cholecalciferol) 50 MCG (1999) Oral Capsule Take by mouth at bedtime. Active Ferrous Sulfate 325 (65 Fe) MG Oral Tablet (Feosol) Take 1 Tablet by mouth at bedtime. Active Stiolto Respimat 2.5-2.5 MCG/ACT Inhalation Aerosol Solution (Tiotropium [place]-Olodaterol)I ndications:COPD, severity to be determined ([facility] [...] evening meals. 60 Tablet 3 01/27/2024 Active oxyCODONE-Acetaminop hen 5-325 MG Oral Tablet (Percocet)Indication s:Lung cancer metastatic to bone (HCC) Take 2 Tablets by mouth every 6 hours as needed for Pain, Moderate. 60 Tablet 04/15/2024 Active oxyCODONE HCl ER 40 MG Oral Tablet ER 12 Hour Abuse-Deterrent (OxyCONTIN)Indicatio ns:Lung cancer metastatic to bone (HCC),Recurrent adenocarcinoma of lung, unspecified laterality (HCC),Pain from bone metastases (HCC),Cancer, metastatic to bone (HCC),Lesion of thoracic vertebra,Drug-induce d constipation Take 1 Tablet by mouth in the morning and 1 Tablet before bedtime. 60 Tablet 04/18/2024 05/18/2024 Active dexAMETHasone 4 MG Oral Tablet (Decadron)Indication s:Lung cancer metastatic to bone (HCC),Pain from bone metastases (HCC),Cancer, metastatic to bone (HCC),Lesion of thoracic vertebra Take 2 Tablets by mouth daily with breakfast. 60 Tablet 04/18/2024 05/18/2024 Active Lactulose 10 GM/15ML Oral Solution (Constulose)Indicati [...] for Nausea. 30 Tablet 5 05/11/2024 Active OLANZapine 10 MG Oral Tablet (zyPREXA)Indications :Cancer, metastatic to bone (HCC),Lung cancer metastatic to bone (HCC),Encounter for antineoplastic chemotherapy,Prevent ion of chemotherapy-induced neutropenia Take 1 Tablet by mouth at bedtime for 4 days. On days 1, 2, 3, and 4 of chemo. 4 Tablet 05/11/2024 05/15/2024 Active Hospital, Clinic, or Other Facility Administered Medication Ordered Dose Route Frequency Start Date End Date Status bevaCIZumab (Avastin) inj 1.25 mgIndications:Radiation retinopathy, subsequent encounter 1.25 mg IZ PRN 10/08/2023 10/07/2024 Active ROPivacaine (Naropin) inj 1.5 mgIndications:Radiation retinopathy, subsequent encounter 1.5 mg IJ PRN 10/08/2023 10/07/2024 Active documented as of this encounter (statuses as of 05/11/2024) Active Problems Problem Noted Date Diagnosed Date [...] as of this encounter (statuses as of 05/11/2024) Resolved Problems Problem Noted Date Diagnosed Date Resolved Date COPD, group A, by GOLD 2017 classification 07/07/2022 04/07/2024 Overview: Per COPD GOLD Classification COPD, severity to be determined 07/09/2021 07/10/2022 Overview: Per COPD GOLD Classification documented as of this encounter (statuses as of 05/11/2024) Immunizations Name Administration Dates Next Due Covid-19 [...] No 05/22/2023 Does the household have a [facility] source of income? (Household - for [...] as of this encounter Nursing Notes * Whit Martinez, RN - 05/11/2024 1:45 PM EDT Patient education completed- see education documentation. Patient went for lab work after educationvisit, scheduled for treatment 05/16/24. documented in this encounter Plan of Treatment Upcoming Encounters Date Type Department Care Team (Late st Contact Info) Description 05/16/2024 10:30 AM EDT Hem/Onc Treatment Hematology/Oncology Treatment, [place] [address] [place] [address] Shereen, Chair 9 Hem Onc Scenery [address] [place] [address] 06/28/2024 8:30 AM EST Office Visit Ophthalmology, [facility] [address] [place] [address] Anthony Grey, DO [address] [place] [address] 03/10/2025 10:00 AM EDT Office Visit Sleep Disorders Ctr [facility] [address] [place] [phone] Margie Gutierrez, DO [address] [place] [address] Health Maintenance Due Date Last Done Comments [...] this encounter Medical Devices Implanted Type Area Air Table Operator Device Identifier Shelf Expiration Date Model / Serial / Lot Port Implant W8f Poly Cath - [id number] Implanted:Qty : 1 on 04/20/2024 by Nathan Hardwick MD at [facility] Right: Chest CR BARD : PERIPHERAL VASCULAR [id number] 06/25/2025 [id number] / / [id number] documented as of this encounter Visit Diagnoses Diagnosis Cancer, metastatic to bone (HCC)- Primary Secondary malignant neoplasm of bone and bone marrow Lung cancer metastatic to bone (HCC) Encounter for antineoplastic chemotherapy Prevention of chemotherapy-induced neutropenia documented in this encounter Care Teams Water Treatment Plant Repairer Relationship Specialty Start Date End Date Richard Marshall DO [address] [place] [address] PCP - General Family Medicine 08/26/22 documented as of this encounter
--- OUTSIDE RECORDS SUMMARY | 2024-08-11 03:39 | External Medical Summary | Summary of Care ---
Author Name Unknown Organization [facility] Address [address] [facility] [place] [address] Phone [phone] Care Team Providers Care Dry Press Operator Name Role Phone Richard Marshall DO Primary Care Provider [phone] Reason for Visit * Reason Onset Date Comments Information 05/09/2024 ac Encounter Details Date Type Department Care Team (Late st Contact Info) Description 05/09/2024 Telephone Hematology/Oncology Treatment, [place] [address] [place] [address] Nicole Vinson MD [address] [facility] [place] [address] Information (ac) Allergies Active Allergy Reactions Criticality Noted Date [...] Respimat 2.5-2.5 MCG/ACT Inhalation Aerosol Solution (Tiotropium [place]-Olodaterol)I ndications:COPD, severity to be determined (HCC) Inhale [...] before bedtime. 1992 mL 2 04/18/2024 Active Hospital, Clinic, or Other Facility Administered [...] Care Team (Late st Contact Info) Description 05/11/2024 9:00 AM EDT Pt Ed by Nurse Hematology/Oncology Karla Regan [place] [address] [place] [phone] Shereen Nurse Hem Onc [facility] [address] [place] [address] 05/11/2024 10:00 AM EDT Laboratory Laboratory Karla Regan [place] [address] [place] [phone] Shereen Lab Scenery [address] [facility] [place] [address] 05/16/2024 10:30 AM EDT Hem/Onc Treatment Hematology/Oncology Treatment, [place] [address] [place] [phone] Shereen, Chair 9 Hem Onc Scen[address] [place] [address] 06/28/2024 8:30 AM EST Office Visit Ophthalmology, [facility] [address] [place] [address] Anthony Grey, DO [address] [place] [address] 03/10/2025 10:00 AM EDT Office Visit Sleep Disorders Ctr [facility] [address] [place] [phone] Margie Gutierrez, DO [address] [place] [address] Health Maintenance Due Date Last Done Comments [...] Lipid Panel 10/09/2026 10/09/2021, 07/09/2021 Diabetes Screening 04/04/2027 04/04/2024, 0 12/18/2023, 07/09/2021 Alpha-1 Antitrypsin Completed 10/09/2021 Lung Cancer Screening [...] this encounter Medical Devices Implanted Type Area Talent Manager Device Identifier Shelf Expiration Date Model / Serial / Lot Port Implant W8f Poly Cath - [id number] Implanted:Qty : 1 on 04/20/2024 by Nathan Hardwick MD at [facility] Right: Chest CR BARD : PERIPHERAL VASCULAR [id number] 06/25/2025 [id number] / / [id number] documented as of this encounter Care Teams Dry Press Operator Relationship Specialty Start Date End Date Richard Marshall DO [address] [place], [place] [id number] PCP - General Family Medicine 08/26/22 documented as of this encounter
--- OUTSIDE RECORDS SUMMARY | 2024-08-11 03:39 | External Medical Summary | Summary of Care ---
Author Name Unknown Organization [facility] Address [address] [facility] [place] [address] Phone [phone] Care Team Providers Care Kettle Operator Head Name Role Phone Richard Marshall DO Primary Care Provider [phone] Reason for Visit * Reason Onset Date Comments Outpatient Testing 04/21/2024 Kristina, Her 2 Encounter Details Date Type Department Care Team (Late st Contact Info) Description 04/21/2024 Telephone Hematology/Oncology Treatment, [place] [address] [place] [address] Nicole Vinson MD 400 [facility] [place] [address] Outpatient Testing (MyGenvar, Her2) Allergies [...] Respimat 2.5-2.5 MCG/ACT Inhalation Aerosol Solution (Tiotropium [place]-Olodaterol)I ndications:COPD, severity to be determined (HCC) Inhale [...] 10:30 AM EDT Hem/Onc Treatment Hematology/Oncology Treatment, [place] [address] [place] [address] Shereen, Chair 9 Hem Onc Scenery [address] [place] [address] 06/28/2024 8:30 AM EST Office Visit Ophthalmology, [facility] [address] [place] [address] Anthony Grey, DO [address] [place] [address] 03/10/2025 10:00 AM EDT Office Visit Sleep Disorders Ctr [facility] [address] [place] [phone] Margie Gutierrez, DO [address] [place] [address] Health Maintenance Due Date Last Done Comments [...] this encounter Medical Devices Implanted Type Area Security Operations Analyst Device Identifier Shelf Expiration Date Model / Serial / Lot Port Implant W8f Poly Cath - [id number] Implanted:Qty : 1 on 04/20/2024 by Nathan Hardwick MD at [facility] Right: Chest CR BARD : PERIPHERAL VASCULAR [id number] 06/25/2025 [id number] / / [id number] documented as of this encounter Procedures Procedure Name Priority Date/Time Associated Diagnosis Comments ANATOMIC PATHOLOGY (BM/SURGICAL/CYTOLO GY) ADD ON REQUEST Routine 04/21/2024 2:07 PM EDT Lung cancer metastatic to bone (HCC) documented in this encounter Results * ANATOMIC PATHOLOGY (BM/SURGICAL/CYTOLOGY) ADD ON REQUEST (04/21/2024 2:07 PM EDT) 04/21/2024 2:07 PM EDT 04/21/2024 2:07 PM EDT Narrative [facility] - 04/25/2024 8:29 AM EDT Her2 Ordered by: Dr. Nicole Vinson TT to SM 04/21/24 JCD Per SM ordered 04/21/24 JCD Nicole Vinson MD LAB BLOOD ORDERABLES [facility] [address] [place] [address] documented in this encounter Visit Diagnoses Diagnosis Lung cancer metastatic to bone (HCC)- Primary documented in this encounter Care Teams Kettle Operator Head Relationship Specialty Start Date End Date Richard Marshall DO [address] [place] [address] PCP - General Family Medicine 08/26/22 documented as of this encounter
--- OUTSIDE RECORDS SUMMARY | 2024-08-11 03:39 | External Medical Summary | Summary of Care ---
Author Name Unknown Organization [facility] Address [address] [facility] [place] [address] Phone [phone] Care Team Providers Care Reverser Name Role Phone Richard Marshall DO Primary Care Provider [phone] Reason for Visit * Reason Onset Date Comments Information 05/09/2024 ac Encounter Details Date Type Department Care Team (Late st Contact Info) Description 05/09/2024 Telephone Hematology/Oncology Treatment, [place] [address] [place] [address] Nicole Vinson MD 400 [facility] [place] [address] Information (ac) Allergies Active Allergy [...] Respimat 2.5-2.5 MCG/ACT Inhalation Aerosol Solution (Tiotropium [place]-Olodaterol) Indications:COPD, severity to be determined (HCC) Inhale [...] 10:30 AM EDT Hem/Onc Treatment Hematology/Oncology Treatment, [place] [address] [place] [phone] Shereen, Chair 9 Hem Onc Scenery [address] [place] [address] 06/28/2024 8:30 AM EST Office Visit Ophthalmology, [facility] [address] [place] [address] Anthony Grey, DO [address] [place] [address] 03/10/2025 10:00 AM EDT Office Visit Sleep Disorders Ctr [facility] [address] [place] [phone] Margie Gutierrez, DO [address] [place] [address] Health Maintenance Due Date Last Done Comments [...] this encounter Medical Devices Implanted Type Area Industrial Education Teacher Device Identifier Shelf Expiration Date Model / Serial / Lot Port Implant W8f Poly Cath - [id number] Implanted:Qty : 1 on 04/20/2024 by Nathan Hardwick MD at [facility] Right: Chest CR BARD : PERIPHERAL VASCULAR [id number] 06/25/2025 [id number] / / [id number] documented as of this encounter Care Teams Reverser Relationship Specialty Start Date End Date Richard Marshall DO [address] [place] [address] PCP - General Family Medicine 08/26/22 documented as of this encounter
--- OUTSIDE RECORDS SUMMARY | 2024-08-11 03:39 | External Medical Summary | Summary of Care ---
Author Name Unknown Organization [facility] Address [address] [facility] [place] [address] Phone [phone] Care Team Providers Care Department Store Door Greeter Name Role Phone Richard Marshall DO Primary Care Provider [phone] Reason for Visit * Reason Onset Date Comments Information 05/09/2024 ac Encounter Details Date Type Department Care Team (Late st Contact Info) Description 05/09/2024 Telephone Hematology/Oncology Treatment, [place] [address] [place] [address] Nicole Vinson MD 400 [facility] [place] [address] Information (ac) Allergies Active Allergy [...] Respimat 2.5-2.5 MCG/ACT Inhalation Aerosol Solution (Tiotropium [place]-Olodaterol) Indications:COPD, severity to be determined (HCC) Inhale [...] 10:30 AM EDT Hem/Onc Treatment Hematology/Oncology Treatment, [place] [address] [place] [phone] Shereen, Chair 9 Hem Onc Scenery [address] [place] [address] 06/28/2024 8:30 AM EST Office Visit Ophthalmology, [facility] [address] [place] [address] Anthony Grey, DO [address] [place] [address] 03/10/2025 10:00 AM EDT Office Visit Sleep Disorders Ctr [facility] [address] [place] [phone] Margie Gutierrez, DO [address] [place] [address] Health Maintenance Due Date Last Done Comments [...] this encounter Medical Devices Implanted Type Area Logistics Management Specialist Device Identifier Shelf Expiration Date Model / Serial / Lot Port Implant W8f Poly Cath - [id number] Implanted:Qty : 1 on 04/20/2024 by Nathan Hardwick MD at [facility] Right: Chest CR BARD : PERIPHERAL VASCULAR [id number] 06/25/2025 [id number] / / [id number] documented as of this encounter Care Teams Department Store Door Greeter Relationship Specialty Start Date End Date Richard Marshall DO [address] [place], [place] [phone] PCP - General Family Medicine 08/26/22 documented as of this encounter
--- OUTSIDE RECORDS SUMMARY | 2024-08-11 03:39 | External Medical Summary | Summary of Care ---
Author Name Unknown Organization [facility] Address [address] [place] [facility] [place] [address] Phone [phone] Care Team Providers Care Cold Type Composing Machine Operator Name Role Phone Richard Marshall DO Primary Care Provider [phone] Reason for Visit * Reason Onset Date Comments Medication Refill 05/11/2024 Encounter Details Date Type Department Care Team (Late st Contact Info) Description 05/11/2024 Refill Hematology/Oncology Treatment, [place] [address] [place] [address] Nicole Vinson MD [address] [place] [address] Lung cancer metastatic to bone (HCC); Recurrent adenocarcinoma of lung, unspecified laterality (HCC); Pain from bone metastases (HCC); Cancer, metastatic to bone (HCC); Lesion of thoracic vertebra; Drug-induced constipation Allergies Active Allergy Reactions Criticality Noted Date Comments Iodinated Contrast Media 07/05/2021 "itchy, rash and hives" CT Scan documented as of this encounter (statuses as of 05/12/2024) Medications Medication Sig Dispensed Refills Start Date End Date Status Vitamin D (Cholecalciferol) 50 MCG (1999) Oral Capsule Take by mouth at bedtime. Active Ferrous Sulfate 325 (65 Fe) MG Oral Tablet (Feosol) Take 1 Tablet by mouth at bedtime. Active Stiolto Respimat 2.5-2.5 MCG/ACT Inhalation Aerosol Solution (Tiotropium [place]-Olodaterol) Indications:COPD, severity to be determined (HCC) Inhale [...] mouth daily with breakfast. 60 Tablet 04/18/2024 05/18/20 24 Active Lactulose 10 GM/15ML Oral Solution (Constulose)Indicat [...] 05/11/2024 Active OLANZapine 10 MG Oral Tablet (zyPREXA)Indication s:Cancer, metastatic to bone (HCC),Lung cancer metastatic to bone (HCC),Encounter for antineoplastic chemotherapy,Preven tion of chemotherapy-induce d neutropenia Take 1 Tablet by mouth at bedtime for 4 days. On days 1, 2, 3, and 4 of chemo. 4 Tablet 05/11/2024 05/15/20 24 Active oxyCODONE HCl ER 40 MG [...] TO ACCESSING. 30 g 1 05/12/2024 Active oxyCODONE-Acetamino phen 5-325 MG Oral Tablet (Percocet)Indicatio ns:Lung cancer metastatic to bone (HCC) Take 2 Tablets by mouth every 6 hours as needed for Pain, Moderate. 60 Tablet 04/15/2024 05/11/20 24 Discontinu ed(Refill) oxyCODONE HCl ER 40 MG Oral Tablet ER 12 Hour Abuse-Deterrent (OxyCONTIN)Indicati ons:Lung cancer metastatic to bone (HCC),Recurrent adenocarcinoma of lung, unspecified laterality (HCC),Pain from bone metastases (HCC),Cancer, metastatic to bone (HCC),Lesion of thoracic vertebra,Drug-induc ed constipation Take 1 Tablet by mouth in the morning and 1 Tablet before bedtime. 60 Tablet 04/18/2024 05/11/20 24 Discontinu ed(Refill) Hospital, Clinic, or Other Facility Administered Medication Ordered Dose Route Frequency Start Date End Date Status bevaCIZumab (Avastin) inj 1.25 mgIndications:Radiation retinopathy, subsequent encounter 1.25 mg IZ PRN 10/08/2023 10/07/2024 Active ROPivacaine (Naropin) inj 1.5 mgIndications:Radiation retinopathy, subsequent encounter 1.5 mg IJ PRN 10/08/2023 10/07/2024 Active documented as of this encounter (statuses as of 05/12/2024) Active Problems Problem Noted Date Diagnosed Date [...] as of this encounter (statuses as of 05/12/2024) Resolved Problems Problem Noted Date Diagnosed Date Resolved Date COPD, group A, by GOLD 2017 classification 07/07/2022 04/07/2024 Overview: Per COPD GOLD Classification COPD, severity to be determined 07/09/2021 07/10/2022 Overview: Per COPD GOLD Classification documented as of this encounter (statuses as of 05/12/2024) Immunizations Name Administration Dates Next Due Covid-19 [...] Encounter - Whit Martinez RN - 05/11/2024 9:34 AM EDT Patient states that she needs a refill on oxycodone ER and percocet. Also pended claritin and EMLA. documented in this encounter Plan of Treatment Upcoming Encounters Date Type Department Care Team (Late st Contact Info) Description 05/16/2024 10:30 AM EDT Hem/Onc Treatment Hematology/Oncology Treatment, [place] [address] [place] [address] Shereen, Chair 9 Hem Onc Scenery [address] [place] [address] 06/28/2024 8:30 AM EST Office Visit Ophthalmology, [facility] [address] [place] [address] Anthony Grey, DO [address] [place] [address] 03/10/2025 10:00 AM EDT Office Visit Sleep Disorders Ctr [facility] [address] [place] [address] Margie Gutierrez, [address] [place] [address] Health Maintenance Due Date Last Done Comments [...] this encounter Medical Devices Implanted Type Area [employer] Device Identifier Shelf Expiration Date Model / Serial / Lot Port Implant W8f Poly Cath - [id number] Implanted:Qty : 1 on 04/20/2024 by Nathan Hardwick MD at [facility] Right: Chest CR BARD : PERIPHERAL VASCULAR [id number] 06/25/2025 [id number] / / [id number] documented as of this encounter Visit Diagnoses Diagnosis Lung cancer metastatic to bone (HCC) Recurrent adenocarcinoma of lung, unspecified laterality (HCC) Pain from bone metastases (HCC) Cancer, metastatic to bone (HCC) Secondary malignant neoplasm of bone and bone marrow Lesion of thoracic vertebra Drug-induced constipation Other constipation documented in this encounter Care Teams Cold Type Composing Machine Operator Relationship Specialty Start Date End Date Richard Marshall DO [address] [place] [address] PCP - General Family Medicine 08/26/22 documented as of this encounter
--- OUTSIDE RECORDS SUMMARY | 2024-08-11 03:39 | External Medical Summary | Summary of Care ---
Author Name Unknown Organization [facility] Address [address] [place] [address] Phone [phone] Care Team Providers Care Medical Assisting Instructor Name Role Phone Richard Marshall DO Primary Care Provider [phone] Reason for Visit * Reason Comments Outpatient Testing Encounter Details Date Type Department Care Team (Late st Contact Info) Description 05/11/2024 10:00 AM EDT Laboratory Laboratory [facility] [address] [place] [phone] [place], Lab Scenery [address] [place] [address] Lung cancer metastatic to bone (HCC) Allergies [...] Respimat 2.5-2.5 MCG/ACT Inhalation Aerosol Solution (Tiotropium [place]-Olodaterol)I ndications:COPD, severity to be determined ([facility] [...] 10:30 AM EDT Hem/Onc Treatment Hematology/Oncology Treatment, [place] [address] [place] [phone] Shereen, Chair 9 Hem Onc Scenery [address] [place] [address] 06/28/2024 8:30 AM EST Office Visit Ophthalmology, [facility] [address] [place] [address] Anthony Grey, DO [address] [place] [address] 03/10/2025 10:00 AM EDT [facility] [address] [place] [address] Margie Gutierrez, [address] [place] [address] Pending Results Name Type Priority Associated Diagnoses Date /Time CBC WITH WBC DIFFERENTIAL Lab Routine Lung cancer metastatic to bone (HCC) 05/11/2024 10:00 AM EDT COMPREHENSIVE METABOLIC PANEL Lab STAT Lung cancer metastatic to bone (HCC) 05/11/2024 10:00 AM EDT HEPATITIS B SURFACE ANTIBODY Lab Routine Lung cancer metastatic to bone (HCC) 05/11/2024 10:00 AM EDT HEPATITIS B SURFACE ANTIGEN Lab Routine Lung cancer metastatic to bone (HCC) 05/11/2024 10:00 AM EDT CBC Lab Routine Lung cancer metastatic to bone (HCC) 05/11/2024 10:00 AM EDT DIFFERENTIAL, AUTOMATED Lab Routine Lung cancer metastatic to bone (HCC) 05/11/2024 10:00 AM EDT URINALYSIS, REFLEX TO MICROSCOPIC Lab Routine Lung cancer metastatic to bone (HCC) 05/11/2024 10:02 AM EDT MICROSCOPIC EXAM, URINE Lab Routine Lung cancer metastatic to bone (HCC) 05/11/2024 10:02 AM EDT Health Maintenance Due Date Last Done Comments [...] this encounter Medical Devices Implanted Type Area Investor Relations Specialist Device Identifier Shelf Expiration Date Model / Serial / Lot Port Implant W8f Poly Cath - [id number] Implanted:Qty : 1 on 04/20/2024 by Nathan Hardwick MD at [facility] Right: Chest CR BARD : PERIPHERAL VASCULAR [id number] 06/25/2025 [id number] / / [id number] documented as of this encounter Visit Diagnoses Diagnosis Lung cancer metastatic to bone (HCC) documented in this encounter Care Teams Medical Assisting Instructor Relationship Specialty Start Date End Date Richard Marshall DO [address] [place] [address] PCP - General Family Medicine 08/26/22 documented as of this encounter
--- OUTSIDE RECORDS SUMMARY | 2024-08-11 03:39 | External Medical Summary | Summary of Care ---
Author Name Unknown Organization [facility] Address [address] [facility] [place] [address] Phone [phone] Care Team Providers Care Military Pay Clerk Name Role Phone Richard Marshall DO Primary Care Provider [phone] Reason for Visit * Reason Onset Date Comments Outpatient Testing 04/21/2024 Kristina, Her 2 Encounter Details Date Type Department Care Team (Late st Contact Info) Description 04/21/2024 Telephone Hematology/Oncology Treatment, [place] [address] [place] [address] Nicole Vinson MD [address] [facility] [place] [address] Outpatient Testing (MyGenvar, Her2) Allergies [...] Respimat 2.5-2.5 MCG/ACT Inhalation Aerosol Solution (Tiotropium [place]-Olodaterol)I ndications:COPD, severity to be determined (HCC) Inhale [...] 10:30 AM EDT Hem/Onc Treatment Hematology/Oncology Treatment, [place] [address] [place] [address] Shereen, Chair 9 Hem Onc Scenery [address] [place] [address] 06/28/2024 8:30 AM EST Office Visit Ophthalmology, [facility] [address] [place] [address] Anthony Grey, DO [address] [place] [address] 03/10/2025 10:00 AM EDT Office Visit Sleep Disorders Ctr [facility] [address] [place] [phone] Margie Gutierrez, DO [address] [place] [address] Health Maintenance Due Date Last Done Comments [...] this encounter Medical Devices Implanted Type Area Gate Agent Device Identifier Shelf Expiration Date Model / Serial / Lot Port Implant W8f Poly Cath - [id number] Implanted:Qty : 1 on 04/20/2024 by Nathan Hardwick MD at [facility] Right: Chest CR BARD : PERIPHERAL VASCULAR [id number] 06/25/2025 [id number] / / [id number] documented as of this encounter Procedures Procedure Name Priority Date/Time Associated Diagnosis Comments ANATOMIC PATHOLOGY (BM/SURGICAL/CYTOLO GY) ADD ON REQUEST Routine 04/21/2024 2:07 PM EDT Lung cancer metastatic to bone (HCC) documented in this encounter Results * ANATOMIC PATHOLOGY (BM/SURGICAL/CYTOLOGY) ADD ON REQUEST (04/21/2024 2:07 PM EDT) 04/21/2024 2:07 PM EDT 04/21/2024 2:07 PM EDT [facility] LABORATORY [facility] - 04/25/2024 8:29 AM EDT Her2 Ordered by: Dr. Nicole Vinson TT to SM 04/21/24 JCD Per SM ordered 04/21/24 JCD Nicole Vinson MD LAB BLOOD ORDERABLES LABORATORY [facility] [address] [place] [address] documented in this encounter Visit Diagnoses Diagnosis Lung cancer metastatic to bone (HCC)- Primary documented in this encounter Care Teams Military Pay Clerk Relationship Specialty Start Date End Date Richard Marshall DO [address] [place] [address] [place] [id number] PCP - General Family Medicine 08/26/22 documented as of this encounter
--- OUTSIDE RECORDS SUMMARY | 2024-08-11 03:39 | External Medical Summary | Summary of Care ---
Author Name Unknown Organization [facility] Address [address] [place] [address] Phone [phone] Care Team Providers Care Heavy Duty Press Operator Name Role Phone Richard Marshall DO Primary Care Provider + [phone] Reason for Visit * Reason Comments Outpatient Testing Encounter Details Date Type Department Care Team (Late st Contact Info) Description 05/11/2024 10:00 AM EDT Laboratory Laboratory [facility] [address] [place] [phone] [place], Lab Scenery [address] [place] [address] Lung cancer metastatic to bone (HCC) Allergies [...] Respimat 2.5-2.5 MCG/ACT Inhalation Aerosol Solution (Tiotropium [place]-Olodaterol)I ndications:COPD, severity to be determined ([facility]) Inhale 2 Puffs by mouth [...] 10:30 AM EDT Hem/Onc Treatment Hematology/Oncology Treatment, [place] [address] [place] [address] Shereen, Chair 9 Hem Onc Scenery [address] [place] [address] 06/28/2024 8:30 AM EST Office Visit Ophthalmology, [facility] [address] [place] [address] Anthony Grey, DO [address] [place] [address] 03/10/2025 10:00 AM EDT Office Visit Sleep Disorders Ctr [facility] [address] [place] [address] Margie Gutierrez, [address] [place] [address] Pending Results Name Type Priority Associated Diagnoses [...] this encounter Medical Devices Implanted Type Area Chair Installer Device Identifier Shelf Expiration Date Model / Serial / Lot Port Implant W8f Poly Cath - [id number] Implanted:Qty : 1 on 04/20/2024 by Nathan Hardwick MD at OR [facility] Right: Chest CR BARD : PERIPHERAL VASCULAR [id number] 06/25/2025 [id number] / / [id number] documented as of this encounter Visit Diagnoses Diagnosis Lung cancer metastatic to bone (HCC) documented in this encounter Care Teams Heavy Duty Press Operator Relationship Specialty Start Date End Date Richard Marshall DO [address] [place] [address] PCP - General Family Medicine 08/26/22 documented as of this encounter
--- OUTSIDE RECORDS SUMMARY | 2024-08-11 03:40 | External Medical Summary | Summary of Care ---
Author Name Unknown Organization [facility] Address [address] [place] [address] Phone [phone] Care Team Providers Care Garment Looper Name Role Phone Richard Marshall DO Primary Care Provider [phone] Reason for Visit * Reason Onset Date Comments Information 05/09/2024 Encounter Details Date Type Department Care Team (Late st Contact Info) Description 05/09/2024 Telephone Hematology/Oncology Treatment, [place] [address] [place] [address] Nicole Vinson MD [address] [facility] [place] [address] Information Allergies Active Allergy Reactions Criticality Noted Date Comments Iodinated Contrast Media 07/05/2021 "itchy, rash and hives" CT Scan documented as of this encounter (statuses as of 05/10/2024) Medications Medication Sig Dispensed Refills Start Date End Date Status Vitamin D (Cholecalciferol) 50 MCG (1999) Oral Capsule Take by mouth at bedtime. Active Ferrous Sulfate 325 (65 Fe) MG Oral Tablet (Feosol) Take 1 Tablet by mouth at bedtime. Active Stiolto Respimat 2.5-2.5 MCG/ACT Inhalation Aerosol Solution (Tiotropium [place]-Olodaterol)I ndications:COPD, severity to be determined (HCC) Inhale [...] as of this encounter (statuses as of 05/10/2024) Active Problems Problem Noted Date Diagnosed Date [...] as of this encounter (statuses as of 05/10/2024) Resolved Problems Problem Noted Date Diagnosed Date Resolved Date COPD, group A, by GOLD 2017 classification 07/07/2022 04/07/2024 Overview: Per COPD GOLD Classification COPD, severity to be determined 07/09/2021 07/10/2022 Overview: Per COPD GOLD Classification documented as of this encounter (statuses as of 05/10/2024) Immunizations Name Administration Dates Next Due Covid-19 [...] Miscellaneous Notes * Telephone Encounter - Whit Martinez, RN - 05/09/2024 3:48 PM EDT New [...] AM EDT Pt Ed by Nurse Hematology/Oncology [facility] [place] [address] [place] [phone] Shereen Nurse Hem Onc [facility] [address] [place] [address] 05/11/2024 10:00 AM EDT Laboratory Laboratory [facility] Shereen [place] [address] [place] [address] Shereen, Lab [facility] [address] [facility] [place] [address] 05/16/2024 10:30 AM EDT Hem/Onc Treatment Hematology/Oncology Treatment, [place] [address] [place] [address] Shereen, Chair 9 Hem Onc [facility] [address] [place] [address] 06/15/2024 8:20 AM EST Office Visit Pulmonary Medicine, [facility] [address] [facility] [place] [address] Sav Olivia MD [address] [facility] [place] [id number] 06/28/2024 8:30 AM EST Office Visit Ophthalmology, [facility] [address] [place] [address] Anthony Grey, DO [address] [place] [address] 03/10/2025 10:00 AM EDT Office Visit Sleep Disorders Ctr [facility] [address] [place] [phone] Margie Gutierrez, DO [address] [place] [address] Health Maintenance Due Date Last Done Comments [...] this encounter Medical Devices Implanted Type Area Telephone Mechanic Device Identifier Shelf Expiration Date Model / Serial / Lot Port Implant W8f Poly Cath - [id number] Implanted:Qty : 1 on 04/20/2024 by Nathan Hardwick MD at OR [facility] Right: Chest CR BARD : PERIPHERAL VASCULAR [id number] 06/25/2025 [id number] / / [id number] documented as of this encounter Care Teams Garment Looper Relationship Specialty Start Date End Date Richard Marshall DO [address] [place] [address] PCP - General Family Medicine 08/26/22 documented as of this encounter
--- OUTSIDE RECORDS SUMMARY | 2024-08-11 03:40 | External Medical Summary | Summary of Care ---
Author Name Unknown Organization [facility] Address [address] [place] [address] Phone [phone] Care Team Providers Care Skin Tanner Name Role Phone Richard Marshall DO Primary Care Provider + [phone] Encounter Details Date Type Department Care Team (Late st Contact Info) Description 05/09/2024 Documentation Genetics HemOnc, C [address] [place] [address] Marbella Moreira, MS [address] [place] [address] Genetic screening* Allergies Active Allergy Reactions Criticality Noted Date Comments Iodinated Contrast Media 07/05/2021 "itchy, rash and hives" CT Scan documented as of this encounter (statuses as of 05/09/2024) Medications Medication Sig Dispensed Refills Start Date End Date Status Vitamin D (Cholecalciferol) 50 MCG (1999) Oral Capsule Take by mouth at bedtime. Active Ferrous Sulfate 325 (65 Fe) MG Oral Tablet (Feosol) Take 1 Tablet by mouth at bedtime. Active Stiolto Respimat 2.5-2.5 MCG/ACT Inhalation Aerosol Solution (Tiotropium [place]-Olodaterol)I ndications:COPD, severity to be determined (HCC) Inhale [...] as of this encounter (statuses as of 05/09/2024) Active Problems Problem Noted Date Diagnosed Date [...] as of this encounter (statuses as of 05/09/2024) Resolved Problems Problem Noted Date Diagnosed Date Resolved Date COPD, group A, by GOLD 2017 classification 07/07/2022 04/07/2024 Overview: Per COPD GOLD Classification COPD, severity to be determined 07/09/2021 07/10/2022 Overview: Per COPD GOLD Classification documented as of this encounter (statuses as of 05/09/2024) Immunizations Name Administration Dates Next Due Covid-19 [...] as of this encounter Progress Notes * Marbella Moreira MS - 05/09/2024 9:34 AM EDT Cancer Genetics Risk Assessment [facility] at [facility] E-Consult: Review of Tumor Sequencing for Germline Testing Candidates Summary & Recommendation: Genetics evaluation recommended. The OLI variant(s) has been reported in the germline previously. I recommend testing via blood or saliva sample to confirm etiology. The family history of pancreatic cancer may be consistent with OLI-related risk. Per Chart Review HPI: Lanny is a 59 year old female with a diagnosis of lung adenocarcinoma. - The malignancy is MSI-Stable and Moderate TMB. - Prior Germline Testing: No - The family cancer history is somewhat suggestive of an inherited cancer syndrome, and includes: Family History Problem Relation Name Age of Onset Pancreatic cancer Mother Other (Pituitary tumor) [facility] Tumor Sequencing Panel was completed in 04/2024. Note: Review for germline workup is only performed on findings with an associated hereditary cancersyndrome. In general, copy number variation >2 is not of germline concern. Gene Variant Name VAF% Variant Classification KRAS G12A 52.20% Tier 1: Strong significance OLI [id number]*5 68.60% Tier 2: Potential significance KDR KDR CN 5.2 Tier 2: Potential significance SMAD4 Y95H 5.90% Tier 3: Unknown clinical significance FANCL FANCL CN 5 Tier 3: Unknown clinical significance MSH2 MSH2 CN 4.39 Tier 3: Unknown clinical significance MSH6 MSH6 CN 4.55 Tier 3: Unknown clinical significance OLI, [id number] ([id number]) - Variant Allele Frequency: 30-70% VAF; possible germline origin. Database submissions: - Variant reported in germline per ClinVar. ClinVar ID: [id number]. There are 7 submissions from commercial and/or academic laboratories. The variant is classified as pathogenic or likely pathogenic. - Variant not reported in COSMIC database. - lung adenocarcinoma is not a core malignancy associated with germline OLI- related hereditary cancer syndrome. - impression: possible germline finding. Unless highlighted in red, the above findings were reviewed and not of germline concern. Marbella Moreira MS, [facility] - Licensed, Certified Genetic Counselor 05/09/2024, 9:35 AM documented in this encounter Plan of Treatment Upcoming Encounters Date Type Department Care Team (Late st Contact Info) Description 05/11/2024 9:00 AM EDT Pt Ed by Nurse Hematology/Oncology Karla Regan [place] [address] [place] [phone] Shereen, Nurse Hem Onc [place] [address] [place] [address] 05/11/2024 10:00 AM EDT Laboratory Laboratory [facility] Shereen [place] [address] [place] [phone] Shereen, Lab Scen[address] [facility] [place] [address] 05/16/2024 10:30 AM EDT Hem/Onc Treatment Hematology/Oncology Treatment, [place] [address] [place] [phone] Shereen, Chair 9 Hem Onc Scen[address] [place] [address] 06/15/2024 8:20 AM EST Office Visit Pulmonary Medicine, [facility] [address] [facility] [place] [address] Sav Olivia MD [address] [facility] [address] 06/28/2024 8:30 AM EST Office Visit Ophthalmology, [facility] [address] [facility] [place] [address] Anthony Grey, 132 [facility] [place] [address] 03/10/2025 10:00 AM EDT Office Visit Sleep Disorders Ctr [facility] [address] [facility] [place] [address] Margie Gutierrezaret, DO [address] [place] [address] Health Maintenance Due Date Last Done Comments [...] this encounter Medical Devices Implanted Type Area Carburetor Specialist Device Identifier Shelf Expiration Date Model / Serial / Lot Port Implant W8f Poly Cath - [id number] Implanted:Qty : 1 on 04/20/2024 by Nathan Hardwick MD at OR [facility] Right: Chest CR BARD : PERIPHERAL VASCULAR [id number] 06/25/2025 [id number] / / [id number] documented as of this encounter Visit Diagnoses Diagnosis Genetic screening- Primary Other genetic screening documented in this encounter Care Teams Skin Tanner Relationship Specialty Start Date End Date Richard Marshall DO [address] [place] [address] PCP - General Family Medicine 08/26/22 documented as of this encounter
--- OUTSIDE RECORDS SUMMARY | 2024-08-11 03:40 | External Medical Summary | Summary of Care ---
Author Name Unknown Organization [facility] Address [address] [facility] [place] [address] Phone [phone] Care Team Providers Care Reacher Name Role Phone Richard Marshall DO Primary Care Provider [phone] Reason for Visit * Reason Onset Date Comments Information 05/09/2024 ac Encounter Details Date Type Department Care Team (Late st Contact Info) Description 05/09/2024 Telephone Hematology/Oncology Treatment, [place] [address] [place] [address] Nicole Vinson MD 400 [facility] [place] [address] Information (ac) Allergies Active Allergy [...] Respimat 2.5-2.5 MCG/ACT Inhalation Aerosol Solution (Tiotropium [place]-Olodaterol)I ndications:COPD, severity to be determined (HCC) Inhale [...] Pt Ed by Nurse Hematology/Oncology Karla Regan [place] [address] [place] [phone] Shereen Nurse Hem Onc [facility] [address] [place] [address] 05/11/2024 10:00 AM EDT Laboratory Laboratory Karla Regan [place] [address] [place] [phone] Shereen Lab Scenery [address] [facility] [place] [address] 05/16/2024 10:30 AM EDT Hem/Onc Treatment Hematology/Oncology Treatment, [place] [address] [place] [phone] Shereen, Chair 9 Hem Onc [address] [place] [address] 06/15/2024 8:20 AM EST Office Visit Pulmonary Medicine, [facility] [place] [address] Sav Olivia MD [address] [place] [address] 06/28/2024 8:30 AM EST Office Visit Ophthalmology, [facility] [address] [facility] [place] [address] Anthony Grey, DO [address] [place] [address] 03/10/2025 10:00 AM EDT Office Visit Sleep Disorders Ctr [facility] [address] [facility] [place] [phone] Margie Gutierrez, DO [address] [place] [address] Health Maintenance Due Date Last Done Comments [...] this encounter Medical Devices Implanted Type Area Preload Supervisor Device Identifier Shelf Expiration Date Model / Serial / Lot Port Implant W8f Poly Cath - [id number] Implanted:Qty : 1 on 04/20/2024 by Nathan Hardwick MD at [facility] Right: Chest CR BARD : PERIPHERAL VASCULAR [id number] 06/25/2025 [id number] / / [id number] documented as of this encounter Care Teams Reacher Relationship Specialty Start Date End Date Richard Marshall DO [address] [place] [address] PCP - General Family Medicine 08/26/22 documented as of this encounter
--- OUTSIDE RECORDS SUMMARY | 2024-08-11 03:40 | External Medical Summary | Summary of Care ---
Author Name Unknown Organization [facility] Address [address] [facility] [place] [address] Phone [phone] Care Team Providers Care Policy Cancellation Clerk Name Role Phone Richard Marshall DO Primary Care Provider [phone] Reason for Visit * Reason Onset Date Comments Outpatient Testing 04/21/2024 Kristina, Her 2 Encounter Details Date Type Department Care Team (Late st Contact Info) Description 04/21/2024 Telephone Hematology/Oncology Treatment, [place] [address] [place] [address] Nicole Vinson MD [address] [facility] [place] [address] Outpatient Testing (MyGenvar, Her2) Allergies [...] Respimat 2.5-2.5 MCG/ACT Inhalation Aerosol Solution (Tiotropium [place]-Olodaterol)I ndications:COPD, severity to be determined (HCC) Inhale [...] AM EDT Pt Ed by Nurse Hematology/Oncology [facility] Shereen [place] [address] [place] [phone] Shereen Nurse Hem Onc [facility] [address] [place] [address] 05/11/2024 10:00 AM EDT Laboratory Laboratory [facility] She[place] [address] [place] [phone] Shereen, Lab Mario Alberto [address] [place] [address] 05/16/2024 10:30 AM EDT Hem/Onc Treatment Hematology/Oncology Treatment, [place] [address] [place] [phone] Shereen, Chair 9 Hem Onc [address] [place], [place] [address] 06/15/2024 8:20 AM EST Office Visit Pulmonary Medicine, [facility] [address] [place] [address] Sav Olivia MD [address] [place] [address] 06/28/2024 8:30 AM EST Office Visit Ophthalmology, [facility] [place] [address] Anthony Grey, DO [address] [place] [address] 03/10/2025 10:00 AM EDT Office Visit Sleep Disorders Ctr [facility] [address] [facility] [place] [phone] Margie Gutierrez, DO [address] [place] [address] Health Maintenance Due Date Last Done Comments [...] encounter Medical Devices Implanted Type Area Director Ambulatory Device Identifier Shelf Expiration Date Model / Serial / Lot Port Implant W8f Poly Cath - [id number] Implanted:Qty : 1 on 04/20/2024 by Nathan Hardwick MD at [facility] Right: Chest CR BARD : PERIPHERAL VASCULAR [id number] 06/25/2025 [id number] / / [id number] documented as of this encounter Procedures Procedure Name Priority Date/Time Associated Diagnosis Comments ANATOMIC PATHOLOGY (BM/SURGICAL/CYTOLO GY) ADD ON REQUEST Routine 04/21/2024 2:07 PM EDT Lung cancer metastatic to bone (HCC) documented in this encounter Results * ANATOMIC PATHOLOGY (BM/SURGICAL/CYTOLOGY) ADD ON REQUEST (04/21/2024 2:07 PM EDT) 04/21/2024 2:07 PM EDT 04/21/2024 2:07 PM EDT Narrative LABORATORY [facility] - 04/25/2024 8:29 AM EDT Her2 Ordered by: Dr. Nicole Vinson TT to 04/21/24 JCD Per ordered 04/21/24 JCD Nicole Vinson MD LAB BLOOD ORDERABLES LAB[facility]ATORY [facility] [address] [place] [address] documented in this encounter Visit Diagnoses Diagnosis Lung cancer metastatic to bone (HCC)- Primary documented in this encounter Care Teams Policy Cancellation Clerk Relationship Specialty Start Date End Date Richard Marshall DO [address] [place], [place] [phone] PCP - General Family Medicine 08/26/22 documented as of this encounter
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
--- OUTSIDE RECORDS SUMMARY | 2024-08-11 03:40 | External Medical Summary | Summary of Care ---
Author Name Unknown Organization [facility] Address [address] [facility] [address] Phone [phone] Care Team Providers Care Beauty Culture Teacher Name Role Phone Richard Marshall DO Primary Care Provider [phone] Encounter Details Date Type Department Care Team (Late st Contact Info) Description 05/09/2024 Orders Only Hematology/Oncology [facility] Shereen [place] [address] [facility] [address] Nicole [facility] [phone] Allergies Active Allergy Reactions Criticality Noted Date [...] Respimat 2.5-2.5 MCG/ACT Inhalation Aerosol Solution (Tiotropium [place]-Olodaterol)I ndications:COPD, severity to be determined (HCC) Inhale [...] AM EDT Pt Ed by Nurse Hematology/Oncology [facility] [place] [address] [place] [phone] Shereen Nurse Hem Onc [facility] [address] [place] [address] 05/11/2024 10:00 AM EDT Laboratory Laboratory [facility] [place] [address] [place] [phone] Shereen Lab [facility] [address] [facility] [place] [address] 05/16/2024 10:30 AM EDT Hem/Onc Treatment Hematology/Oncology Treatment, [place] [address] [place] [phone] Shereen, Chair 9 Hem Onc [facility] [address] [place] [address] 06/15/2024 8:20 AM EST Office Visit Pulmonary Medicine, [facility] 132 [facility] [place] [address] Sav Olivia MD [address] [facility] [address] 06/28/2024 8:30 AM EST Office Visit Ophthalmology, [facility] 132 [facility] [place] [address] Anthony Grey, [address] [place] [address] 03/10/2025 10:00 AM EDT Office Visit Sleep Disorders Ctr [facility] 132 [facility] [place] [address] Margie Gutierrez, DO [address] [place] [address] Health Maintenance Due Date Last Done Comments [...] this encounter Medical Devices Implanted Type Area Hardware Assembler Device Identifier Shelf Expiration Date Model / Serial / Lot Port Implant W8f Poly Cath - [id number] Implanted:Qty : 1 on 04/20/2024 by Nathan Hardwick MD at OR [facility] Right: Chest CR BARD : PERIPHERAL VASCULAR [id number] 06/25/2025 [id number] / / [id number] documented as of this encounter Care Teams Beauty Culture Teacher Relationship Specialty Start Date End Date Richard Marshall DO [address] [place], [place] [phone] PCP - General Family Medicine 08/26/22 documented as of this encounter
--- OUTSIDE RECORDS SUMMARY | 2024-08-11 03:40 | External Medical Summary ---
Author Name Unknown Address Unknown Organization K09:[facility]-02 - [address] [place] [address] Laboratory Report Ordering Provider Test Date Status EDD ROCHA 05/11/2024 10:00:08 Final Observation Date Value Abnormality Reference (Units ) Status BUN 05/11/2024 10:00:08 22 Above high normal 6-20 (mg/dL) Final Creatinine 05/11/2024 10:00:08 0.7 0.5-1.0 (mg/dL) Final Glomerular filtration rate/1.73 sq M.predicted [Volume Rate/Area] in Serum, Plasma or Blood by Creatinine-based formula (CKD-EPI) 05/11/2024 10:00:08 >90 >=60 (mL/min) Final eGFR is calculated based on the CKD-EPI 2020 equation. Sodium 05/11/2024 10:00:08 140 135-146 (m mol/L) Final Potassium 05/11/2024 10:00:08 3.9 3.5-5.1 (m mol/L) Final Cl 05/11/2024 10:00:08 101 98-107 (mm ol/L) Final CO2 05/11/2024 10:00:08 29 22-32 (mmo l/L) Final Anion gap 05/11/2024 10:00:08 10 7-15 (mmol /L) Final Glucose 05/11/2024 10:00:08 91 70-120 (mg /dL) Final Albumin 05/11/2024 10:00:08 4.1 3.8-5.0 (g /dL) Final AST (Aspartate aminotransferase) 05/11/2024 10:00:08 16 10-35 (U/L) Final Alk Phos 05/11/2024 10:00:08 93 35-130 (U/ L) Final Bilirubin, Total 05/11/2024 10:00:08 0.5 <=1 .2 (mg/dL) Final Calcium 05/11/2024 10:00:08 9.6 8.4-10.2 ( mg/dL) Final Protein 05/11/2024 10:00:08 6.6 6.0-8.3 (g /dL) Final ALT (Alanine aminotransferase) 05/11/2024 10:00:08 15 10-35 (U/L) Final Performing Location [facility]- [address] [place] [address]
--- OUTSIDE RECORDS SUMMARY | 2024-08-11 03:40 | External Medical Summary | Summary of Care ---
Author Name Unknown Organization [facility] Address [address] [place] [address] Phone [phone] Care Team Providers Care Director Of Technology Name Role Phone Richard Marshall DO Primary Care Provider [phone] Reason for Visit * Reason Onset Date Comments Information 05/09/2024 Encounter Details Date Type Department Care Team (Late st Contact Info) Description 05/09/2024 Telephone Hematology/Oncology Treatment, [place] [address] [place] [address] Niocle Vinson MD 400 [facility] [place] [address] Information Allergies Active Allergy Reactions Criticality [...] Respimat 2.5-2.5 MCG/ACT Inhalation Aerosol Solution (Tiotropium [place]-Olodaterol)I ndications:COPD, severity to be determined (HCC) Inhale [...] AM EDT Pt Ed by Nurse Hematology/Oncology [facility] [place] [address] [place] [phone] Shereen Nurse Hem Onc [facility] 200 [facility] [place] [address] 05/11/2024 10:00 AM EDT Laboratory Laboratory [facility] Shereen [place] [address] [place] [phone] Shereen, Lab [facility] 200 [facility] [place] [address] 05/16/2024 10:30 AM EDT Hem/Onc Treatment Hematology/Oncology Treatment, [place] [address] [place] [phone] Shereen, Chair 9 Hem Onc [facility] [address] [place] [address] 06/15/2024 8:20 AM EST Office Visit Pulmonary Medicine, [facility] 132 [facility] [place] [address] Sav Olivia MD [address] [facility] [place] [phone] 06/28/2024 8:30 AM EST Office Visit Ophthalmology, [facility] [address] [place] [address] Anthony Grey, DO [address] [place] [address] 03/10/2025 10:00 AM EDT Office Visit Sleep Disorders Ctr [facility] [address] [place] [phone] Margie Gutierrez, DO [address] [place] [address] Health Maintenance Due Date Last Done Comments [...] this encounter Medical Devices Implanted Type Area Stenotypist Device Identifier Shelf Expiration Date Model / Serial / Lot Port Implant W8f Poly Cath - [id number] Implanted:Qty : 1 on 04/20/2024 by Nathan Hardwick MD at OR [facility] Right: Chest CR BARD : PERIPHERAL VASCULAR [id number] 06/25/2025 [id number] / / [id number] documented as of this encounter Care Teams Director Of Technology Relationship Specialty Start Date End Date Richard Marshall DO 16 [place] [address] PCP - General Family Medicine 08/26/22 documented as of this encounter
--- OUTSIDE RECORDS SUMMARY | 2024-08-11 03:40 | External Medical Summary ---
Author Name Unknown Address Unknown Organization K01:[facility] [address] [facility] [address] [place] [address] Laboratory Report Ordering Provider Test Date Status EDD ROCHA 05/11/2024 10:00:08 Final Observation Date Value Abnormality Reference (Units ) Status Hep B surface Ag 05/11/2024 10:00:08 Negative Neg ative Final Performing Location [facility] - [address] [place] [address]
--- OUTSIDE RECORDS SUMMARY | 2024-08-11 03:40 | External Medical Summary | Summary of Care ---
Author Name Unknown Organization [facility] Address [address] [facility] [place] [address] Phone [phone] Care Team Providers Care Glass Bender Name Role Phone Richard Marshall DO Primary Care Provider [phone] Reason for Visit * Reason Onset Date Comments Outpatient Testing 04/21/2024 Kristina, Her 2 Encounter Details Date Type Department Care Team (Late st Contact Info) Description 04/21/2024 Telephone Hematology/Oncology Treatment, [place] [address] [place] [address] Nicole Vinson MD 400 [facility] [place] [address] Outpatient Testing (MyGenvar, Her2) Allergies [...] Respimat 2.5-2.5 MCG/ACT Inhalation Aerosol Solution (Tiotropium [place]-Olodaterol)I ndications:COPD, severity to be determined (HCC) Inhale [...] AM EDT Pt Ed by Nurse Hematology/Oncology [facility] Shereen [place] [address] [place] [phone] Shereen Nurse Hem Onc [facility] [address] [place] [address] 05/11/2024 10:00 AM EDT Laboratory Laboratory [facility] Shereen [place] [address] [place] [phone] Shereen, Lab Mario Alberto [address] [place] [address] 05/16/2024 10:30 AM EDT Hem/Onc Treatment Hematology/Oncology Treatment, [place] [address] [place] [phone] Shereen, Chair 9 Hem Onc [place] [address] [place], [place] [address] 06/15/2024 8:20 AM EST Office Visit Pulmonary Medicine, [facility] [address] [place] [address] Sav Olivia MD [address] [place] [address] 06/28/2024 8:30 AM EST Office Visit Ophthalmology, [facility] [place] [address] Anthony Grey, DO [address] [place] [address] 03/10/2025 10:00 AM EDT Office Visit Sleep Disorders Ctr [facility] [address] [facility] [place] [phone] Margie Gutierrez, DO [address] [place] [address] Health Maintenance Due Date Last Done Comments [...] this encounter Medical Devices Implanted Type Area Maintainer Central Office Device Identifier Shelf Expiration Date Model / Serial / Lot Port Implant W8f Poly Cath - [id number] Implanted:Qty : 1 on 04/20/2024 by Nathan Hardwick MD at [facility] Right: Chest CR BARD : PERIPHERAL VASCULAR [id number] 06/25/2025 [id number] / / [id number] documented as of this encounter Procedures Procedure Name Priority Date/Time Associated Diagnosis Comments ANATOMIC PATHOLOGY (BM/SURGICAL/CYTOLO GY) ADD ON REQUEST Routine 04/21/2024 2:07 PM EDT Lung cancer metastatic to bone (HCC) documented in this encounter Results * ANATOMIC PATHOLOGY (BM/SURGICAL/CYTOLOGY) ADD ON REQUEST (04/21/2024 2:07 PM EDT) 04/21/2024 2:07 PM EDT 04/21/2024 2:07 PM EDT Narrative [facility] [place] 04/25/2024 8:29 AM EDT Her2 Ordered by: Dr. Nicole Vinson TT to 04/21/24 JCD Per ordered 04/21/24 JCD Nicole Vinson MD LAB BLOOD ORDERABLES [facility] [address] [place] [address] documented in this encounter Visit Diagnoses Diagnosis Lung cancer metastatic to bone (HCC)- Primary documented in this encounter Care Teams Glass Bender Relationship Specialty Start Date End Date Richard Marshall DO [address] [place], [place] [phone] PCP - General Family Medicine 08/26/22 documented as of this encounter
--- OUTSIDE RECORDS SUMMARY | 2024-08-11 03:40 | External Medical Summary ---
Author Name Unknown Address Unknown Organization K09:[facility] [place] [address] Laboratory Report Ordering Provider Test Date Status EDD ROCHA 05/11/2024 10:02:27 Final Observation Date Value Abnormality Reference (Units ) Status RBC, Urine 05/11/2024 10:02:27 0-2 0-2 (/HPF) Final WBC, Urine 05/11/2024 10:02:27 0-2 0-2 (/HPF) Final Bacteria [#/area] in Urine sediment by Microscopy high power field 05/11/2024 10:02:27 0-25 0-25 (/HPF) Final Calcium oxalate crystals [#/area] in Urine sediment by Microscopy high power field 05/11/2024 10:02:27 20-29 Abnormal None (/HPF) Final Performing Location [facility] [place] [address]
--- OUTSIDE RECORDS SUMMARY | 2024-08-11 03:40 | External Medical Summary ---
Author Name Unknown Address Unknown Organization [facility]09:[facility] [place] [address] Laboratory Report Ordering Provider Test Date Status EDD ROCHA 05/11/2024 10:00:08 Final Observation Date Value Abnormality Reference (Units ) Status WBC, Total 05/11/2024 10:00:08 16.80 Above high normal 4 .00-10.80 (K/uL) Final RBC 05/11/2024 10:00:08 4.78 3.85-5.15 (M/uL) Final Hemoglobin 05/11/2024 10:00:08 14.1 12.0-15.3 (g/dL) Final HCT 05/11/2024 10:00:08 44.2 36.0-45.2 (%) Final MCV 05/11/2024 10:00:08 92.5 81.5-97.5 (fL) Final MCH 05/11/2024 10:00:08 29.5 27.0-34.0 (pg) Final MCHC 05/11/2024 10:00:08 31.9 32.0-36.0 (g/dL) Final RDW 05/11/2024 10:00:08 15.1 11.5-15.5 (%) Final Platelets 05/11/2024 10:00:08 313 140-400 (K /uL) Final MPV 05/11/2024 10:00:08 9.7 6.6-11.1 ( fL) Final Performing Location [facility] [place] [place] [address]
--- OUTSIDE RECORDS SUMMARY | 2024-08-11 03:40 | External Medical Summary ---
Author Name Unknown Address Unknown Organization K01:[facility] [address] Ave[address]kel [place] [address] Laboratory Report Ordering Provider Test Date Status RAMSEY ROCHARUBÉNLEAH 05/11/2024 10:00:08 Final Observation Date Value Abnormality Reference (Units) Status Hepatitis B virus surface Ab [Units/volume] in Serum or Plasma by Immunoassay 05/11/2024 10:00:08 666.0 (mIU/mL) Final Hepatitis B virus surface Ab [Presence] in Serum by Immunoassay 05/11/2024 10:00:08 Positive Final HEPATITIS B SURFACE ANTIBODY, INTERPRETATION 05/11/2024 10:00:08 Immune to Hepatitis B Virus Final POSITIVE: >=11.5 mIU/mL
INDETERMINATE: 8.5-<11.5 mIU/mL
NEGATIVE: <8.5 mIU/mL Performing Location [facility] - [address] [place] [address]
--- OUTSIDE RECORDS SUMMARY | 2024-08-11 03:40 | External Medical Summary ---
Author Name Unknown Address Unknown Organization K09[facility] [place] [address] Laboratory Report Ordering Provider Test Date Status EDD ROCHA 05/11/2024 10:00:08 Final Observation Date Value Abnormality Reference (Units ) Status Nucleated erythrocytes/100 leukocytes [Ratio] in Blood by Automated count 05/11/2024 10:00:08 Final Performing Location [facility] [place] [address]
--- OUTSIDE RECORDS SUMMARY | 2024-08-11 03:40 | External Medical Summary | Summary of Care ---
Author Name Unknown Organization [facility] Address [address] [facility] [place] [address] Phone [phone] Care Team Providers Care Gantry Rigger Name Role Phone Richard Marshall DO Primary Care Provider [phone] Reason for Visit * Reason Onset Date Comments Outpatient Testing 04/21/2024 Kristina, Her 2 Encounter Details Date Type Department Care Team (Late st Contact Info) Description 04/21/2024 Telephone Hematology/Oncology Treatment, [place] [address] [place] [address] Nicole Vinson MD 400 [facility] [place] [address] Outpatient Testing (MyGenvar, Her2) Allergies [...] Respimat 2.5-2.5 MCG/ACT Inhalation Aerosol Solution (Tiotropium [place]-Olodaterol)I ndications:COPD, severity to be determined (HCC) Inhale [...] AM EDT Pt Ed by Nurse Hematology/Oncology [facility] Shereen [place] [address] [place] [phone] Shereen Nurse Hem Onc [facility] [address] [place] [address] 05/11/2024 10:00 AM EDT Laboratory Laboratory [facility] Shereen [place] [address] [place] [phone] Shereen, Lab Mario Alberto [address] [place] [address] 05/16/2024 10:30 AM EDT Hem/Onc Treatment Hematology/Oncology Treatment, [place] [address] [place] [phone] Shereen, Chair 9 Hem Onc [place] [address] [place] [address] 06/28/2024 8:30 AM EST Office Visit Ophthalmology, [facility] [address] [place] [address] Anthony Grey, DO [address] [place] [address] 03/10/2025 10:00 AM EDT Office Visit Sleep Disorders Ctr [facility] [address] [place] [phone] Margie Gutierrez, DO [address] [place] [address] Health Maintenance Due Date Last Done Comments [...] this encounter Medical Devices Implanted Type Area Steam Heating Installer Device Identifier Shelf Expiration Date Model / Serial / Lot Port Implant W8f Poly Cath - [id number] Implanted:Qty : 1 on 04/20/2024 by Nathan Hardwick MD at [facility] Right: Chest CR BARD : PERIPHERAL VASCULAR [id number] 06/25/2025 [id number] / / [id number] documented as of this encounter Procedures Procedure Name Priority Date/Time Associated Diagnosis Comments ANATOMIC PATHOLOGY (BM/SURGICAL/CYTOLO GY) ADD ON REQUEST Routine 04/21/2024 2:07 PM EDT Lung cancer metastatic to bone (HCC) documented in this encounter Results * ANATOMIC PATHOLOGY (BM/SURGICAL/CYTOLOGY) ADD ON REQUEST (04/21/2024 2:07 PM EDT) 04/21/2024 2:0 7 PM EDT 04/21/2024 2:07 PM EDT Narrative [facility] - 04/25/2024 8:29 AM EDT Her2 Ordered by: Dr. Nicole Vinson TT to 04/21/24 JCD Per SM ordered 04/21/24 JCD Nicole Vinson MD LAB BLOOD ORDERABLES [facility] [address] documented in this encounter Visit Diagnoses Diagnosis Lung cancer metastatic to bone (HCC)- Primary documented in this encounter Care Teams Gantry Rigger Relationship Specialty Start Date End Date Richard Marshall DO 16 [place] [address] PCP - General Family Medicine 08/26/22 documented as of this encounter
--- OUTSIDE RECORDS SUMMARY | 2024-08-11 03:40 | External Medical Summary ---
Author Name Unknown Address Unknown Organization K09:[facility] [place] [place] [address] Laboratory Report Ordering Provider Test Date Status EDD ROCHA 05/11/2024 10:00:08 Final Observation Date Value Abnormality Reference (Units ) Status SYNC LEUKOCYTES IN BLOOD BY AUTOMATED COUNT 05/11/2024 10:00:08 16.80 Above high normal 4.00-10.80 (K/uL) Final Segs 05/11/2024 10:00:08 87.2 Above high normal 40.0-75.0 (%) Final Lymphs % 05/11/2024 10:00:08 6.0 Below low normal 18.0-42.0 (%) Final Monos 05/11/2024 10:00:08 5.7 1.0-11.0 (%) Final Eosinophils 05/11/2024 10:00:08 0.9 0.0-6.0 (%) Final Basos 05/11/2024 10:00:08 0.2 0.0-2.0 (%) Final Absolute Segs 05/11/2024 10:00:08 14.66 Above high normal 1.80-7.70 (K/uL) Final Lymphs, absolute 05/11/2024 10:00:08 1.01 1.00-4.80 (K/ul) Final Monos, Abs 05/11/2024 10:00:08 0.95 0.00-1.10 (K/uL) Final Eos, Abs 05/11/2024 10:00:08 0.15 0.00-0.70 (K/uL) Final Basos, Abs 05/11/2024 10:00:08 0.03 0.00-0.20 (K/uL) Final Performing Location [facility] [place] [address]
--- OUTSIDE RECORDS SUMMARY | 2024-08-11 03:40 | External Medical Summary | Summary of Care ---
Author Name Unknown Organization [facility] Address [address] [place] [facility] [place] [address] Phone [phone] Care Team Providers Care Bellman Name Role Phone Richard Marshall DO Primary Care Provider [phone] Reason for Visit * Reason Onset Date Comments Information 05/09/2024 Encounter Details Date Type Department Care Team (Late st Contact Info) Description 05/09/2024 Telephone Hematology/Oncology Treatment, [place] [address] [place] [address] Nicole Vinson MD 400 [facility] [place] [address] Information Allergies Active Allergy Reactions Criticality [...] Respimat 2.5-2.5 MCG/ACT Inhalation Aerosol Solution (Tiotropium [place]-Olodaterol)I ndications:COPD, severity to be determined (HCC) Inhale [...] AM EDT Pt Ed by Nurse Hematology/Oncology [facility] [place] [address] [place] [phone] Shereen Nurse Hem Onc [facility] 200 [place] [address] 05/11/2024 10:00 AM EDT Laboratory Laboratory [facility] Shereen [place] [address] [place] [phone] Shereen, Lab [facility] 200 [facility] [place] [address] 05/16/2024 10:30 AM EDT Hem/Onc Treatment Hematology/Oncology Treatment, [place] [address] [place] [address] Shereen, Chair 9 Hem Onc [facility] [address] [place] [address] 06/15/2024 8:20 AM EST Office Visit Pulmonary Medicine, [facility] 132 [facility] [place] [address] Sav Olivia MD [address] [facility] [place] [phone] 06/28/2024 8:30 AM EST Office Visit Ophthalmology, [facility] [address] [place] [address] Anthony Grey, DO [address] [place] [address] 03/10/2025 10:00 AM EDT Office Visit Sleep Disorders Ctr [facility] [address] [place] [phone] Margie Gutierrez, DO [address] [place] [address] Health Maintenance Due Date Last Done Comments [...] this encounter Medical Devices Implanted Type Area Public Area Attendant Device Identifier Shelf Expiration Date Model / Serial / Lot Port Implant W8f Poly Cath - [id number] Implanted:Qty : 1 on 04/20/2024 by Nathan Hardwick MD at OR [facility] Right: Chest CR BARD : PERIPHERAL VASCULAR [id number] 06/25/2025 [id number] / / [id number] documented as of this encounter Care Teams Bellman Relationship Specialty Start Date End Date Richard Marshall DO 16 [place] [address] PCP - General Family Medicine 08/26/22 documented as of this encounter
--- OUTSIDE RECORDS SUMMARY | 2024-08-11 03:41 | External Medical Summary | Summary of Care ---
Author Name Unknown Organization [facility] Address [address] [facility] [place] [address] Phone [phone] Care Team Providers Care Egg Producer Name Role Phone Richard Marshall DO Primary Care Provider [phone] Reason for Visit * Reason Onset Date Comments Precert Future 04/21/2024 Yaritza/Carbo/Taxol Encounter Details Date Type Department Care Team (Late st Contact Info) Description 04/21/2024 Telephone Hematology/Oncology Treatment, [place] [address] [place] [address] Nicole Vinson MD [address] [facility] [place] [address] Precert Future (Yaritza/Carbo/Taxol) Allergies Active Allergy Reactions Criticality Noted Date Comments Iodinated Contrast Media 07/05/2021 "itchy, rash and hives" CT Scan documented as of this encounter (statuses as of 05/05/2024) Medications Medication Sig Dispensed Refills Start Date End Date Status Vitamin D (Cholecalciferol) 50 MCG (1999 UT) Oral Capsule Take by mouth at bedtime. Active Ferrous Sulfate 325 (65 Fe) MG Oral Tablet (Feosol) Take 1 Tablet by mouth at bedtime. Active Stiolto Respimat 2.5-2.5 MCG/ACT Inhalation Aerosol Solution (Tiotropium [place]-Olodaterol)I ndications:COPD, severity to be determined (HCC) Inhale [...] as of this encounter (statuses as of 05/05/2024) Active Problems Problem Noted Date Diagnosed Date [...] as of this encounter (statuses as of 05/05/2024) Resolved Problems Problem Noted Date Diagnosed Date Resolved Date COPD, group A, by GOLD 2017 classification 07/07/2022 04/07/2024 Overview: Per COPD GOLD Classification COPD, severity to be determined 07/09/2021 07/10/2022 Overview: Per COPD GOLD Classification documented as of this encounter (statuses as of 05/05/2024) Immunizations Name Administration Dates Next Due Covid-19 [...] Telephone Encounter - David Burton RN - 05/05/2024 8:26 AM EDT TT sent to [facility] Rad Onc to follow up. * Telephone Encounter - David Burton RN - 05/02/2024 8:24 AM EDT N:S- please check that patient completed RT treatments as expected on 05/06. * Telephone Encounter - Tamiko Ray OSA - 04/29/2024 8:41 AM EDT Pt is aware and has no questions at this time * Telephone Encounter - Tamiko Ray OSA - 04/28/2024 3:03 PM EDT Scheduled Will call pt in the am to make aware and make sure the date and time works * Telephone Encounter - David Burton RN - 04/28/2024 2:[address] Vinson - will schedule first chemo treatment week after RT completes. Scheduling- apologies for the second call, ok to wait until tomorrow to call patient. Please schedule: - 5 hour treatment 05/16/24 (or any other day but Thursday that week) " Taxol/Carbo/Zirabev C1,D1" (Alisson). Please do not schedule on a Thursday. * Telephone Encounter - Ashish Zuniga OSA - 04/28/2024 2:22 PM EDT Patient scheduled and is aware * Telephone Encounter - David Burton RN - 04/28/2024 2:00 PM EDT SIM completed 04/27/24. Pt is scheduled to start radiation 05/02 for a total of 5 treatments to L Clav/ T-Spine. Port placed 04/20/24 Will follow up with Dr. Vinson regarding chemo start date. Scheduling- please call patient to schedule 1 hour nurse visit apt "chemo ed" the week of 05/09/24 and a lab appointment directly after at [facility] "CBCD,CMP, UA, Hep B" * Telephone Encounter - Whit Martinez RN - 04/21/2024 3:38 PM EDT Referral entered. * Telephone Encounter - David Burton RN - 04/21/2024 12:56 PM EDT Orders received for 1 cycle of Yaritza/Carbo/Taxol. Plan built and routed to provider. Awaiting authorization. Pt has apt with RT on 04/27 for clavical/T2 lesions. Per Dr. Vinson- wait to start chemo until after Radiation. -Chemo Consent: 04/21/24 -Chemo Education: Schedule after RT -Port Placement: TBD -Standing Lab orders placed: CBCD, CMP, UA placed. -Medications Pended: Prescribed in the plan -- Pt already started on 8mg Dexamethasone daily for bone pain. -Hep B Labs: Core done 04/04/24, will add on other two Hep B labs documented in this encounter Plan of Treatment Upcoming Encounters Date Type Department Care Team (Late st Contact Info) Description 05/11/2024 9:00 AM EDT Pt Ed by Nurse Hematology/Oncology [facility] [place] [address] [place] [phone] She[place], Nurse Hem Onc [address] [place] [address] 05/11/2024 10:00 AM EDT Laboratory Laboratory [facility] [place] [address] [place] [phone] She[place], Lab [facility] 200 [facility] [place] [address] 05/12/2024 9:30 AM EDT Office Visit General Surgery, [facility] 132 [facility] [place] [address] Thiago Parker MD [address] [place] [address] 05/16/2024 10:30 AM EDT Hem/Onc Treatment Hematology/Oncology Treatment, [place] [address] [place] [phone] She[place], Chair 9 Hem Onc [facility] 200 [facility] [place] [address] 06/15/2024 8:20 AM EST Office Visit Pulmonary Medicine, [facility] 132 [facility] [place] [address] Sav Olivia MD [address] [place] [address] 06/28/2024 8:30 AM EST Office Visit Ophthalmology, [facility] 132 [facility] [place] [address] Anthony Grey, DO [address] [place] [address] 03/10/2025 10:00 AM EDT [facility] [address] [place] [phone] Brenda Margie Bergeron, DO [address] [place] [address] Scheduled Orders Name Type Priority Associated Diagnoses Orde r Schedule CBC WITH WBC DIFFERENTIAL Lab Routine Lung cancer metastatic to bone (HCC) Expected: 04/21/2024, Expires: 04/21/2025 COMPREHENSIVE METABOLIC PANEL Lab STAT Lung cancer metastatic to bone (HCC) Expected: 04/21/2024, Expires: 04/21/2025 HEPATITIS B SURFACE ANTIBODY Lab Routine Lung cancer metastatic to bone (HCC) Expected: 04/21/2024, Expires: 04/21/2025 HEPATITIS B SURFACE ANTIGEN Lab Routine Lung cancer metastatic to bone (HCC) Expected: 04/21/2024, Expires: 04/21/2025 URINALYSIS, REFLEX TO MICROSCOPIC Lab Routine Lung cancer metastatic to bone (HCC) Expected: 04/21/2024, Expires: 04/21/2025 Health Maintenance Due Date Last Done Comments [...] encounter Medical Devices Implanted Type Area Telegraph Messenger Device Identifier Shelf Expiration Date Model / Serial / Lot Port Implant W8f Poly Cath - [id number] Implanted:Qty : 1 on 04/20/2024 by Nathan Hardwick MD at OR [facility] Right: Chest CR BARD : PERIPHERAL VASCULAR [id number] 06/25/2025 [id number] / / [id number] documented as of this encounter Visit Diagnoses Diagnosis Lung cancer metastatic to bone (HCC)- Primary documented in this encounter Care Teams Egg Producer Relationship Specialty Start Date End Date Richard Marshall DO [address] [place] [address] PCP - General Family Medicine 08/26/22 documented as of this encounter
--- OUTSIDE RECORDS SUMMARY | 2024-08-11 03:41 | External Medical Summary | Summary of Care ---
Author Name Unknown Organization [facility] Address [address] [facility] [place] [address] Phone [phone] Care Team Providers Care Screen Vent Binder Name Role Phone Richard Marshall DO Primary Care Provider [phone] Reason for Visit * Reason Onset Date Comments Precert Future 04/21/2024 Yaritza/Carbo/Taxol Encounter Details Date Type Department Care Team (Late st Contact Info) Description 04/21/2024 Telephone Hematology/Oncology Treatment, [place] [address] [place] [address] Nicole Vinson MD 400 [facility] [place] [phone] Precert Future (Yaritza/Carbo/Taxol) Allergies Active Allergy Reactions Criticality Noted Date Comments Iodinated Contrast Media 07/05/2021 "itchy, rash and hives" CT Scan documented as of this encounter (statuses as of 04/28/2024) Medications Medication Sig Dispensed Refills Start Date End Date Status Vitamin D (Cholecalciferol) 50 MCG (1999 UT) Oral Capsule Take by mouth at bedtime. Active Ferrous Sulfate 325 (65 Fe) MG Oral Tablet (Feosol) Take 1 Tablet by mouth at bedtime. Active Stiolto Respimat 2.5-2.5 MCG/ACT Inhalation Aerosol Solution (Tiotropium [place]-Olodaterol)I ndications:COPD, severity to be determined (HCC) Inhale [...] as of this encounter (statuses as of 04/28/2024) Active Problems Problem Noted Date Diagnosed Date [...] as of this encounter (statuses as of 04/28/2024) Resolved Problems Problem Noted Date Diagnosed Date Resolved Date COPD, group A, by GOLD 2017 classification 07/07/2022 04/07/2024 Overview: Per COPD GOLD Classification COPD, severity to be determined 07/09/2021 07/10/2022 Overview: Per COPD GOLD Classification documented as of this encounter (statuses as of 04/28/2024) Immunizations Name Administration Dates Next Due Covid-19 [...] encounter Miscellaneous Notes * Telephone Encounter - Ashish Zuniga OSA [...] and a lab appointment directly after at [facility] "CBCD,CMP, UA, Hep B" * Telephone Encounter [...] Ed by Nurse Hematology/Oncology [facility] [place] [address] [place] [phone] Shereen Nurse Hem Onc [facility] [address] [place] [address] 05/11/2024 10:00 AM EDT Laboratory Laboratory [facility] [place] [address] [place] [phone] She[place], Lab [facility] [address] [facility] [place] [address] 05/12/2024 9:30 AM EDT Office Visit General Surgery, [facility] 132 [place] [address] Thiago Parker MD [address] [place] [address] 06/15/2024 8:20 AM EST Office Visit Pulmonary Medicine, [facility] [place] [address] Sav Olivia MD [address] [place] [facility] [place] [address] 06/28/2024 8:30 AM EST Office Visit Ophthalmology, [facility] 132 [facility] [place] [address] Anthony Grey DO 132 [facility] [place] [address] 03/10/2025 10:00 AM EDT Office Visit Sleep Disorders Ctr [facility] [address] [place] [phone] Margie Gutierrez DO [address] [place] [address] Scheduled Orders Name Type Priority Associated Diagnoses [...] this encounter Medical Devices Implanted Type Area Oxygen Therapy Teacher Device Identifier Shelf Expiration Date Model / Serial / Lot Port Implant W8f Poly Cath - [id number] Implanted:Qty : 1 on 04/20/2024 by Nathan Hardwick MD at OR [facility] Right: Chest CR BARD : PERIPHERAL VASCULAR [id number] 06/25/2025 [id number] / / [id number] documented as of this encounter Visit Diagnoses Diagnosis Lung cancer metastatic to bone (HCC)- Primary documented in this encounter Care Teams Screen Vent Binder Relationship Specialty Start Date End Date Richard Marshall DO [address] [place] [address] PCP - General Family Medicine 08/26/22 documented as of this encounter
--- OUTSIDE RECORDS SUMMARY | 2024-08-11 03:41 | External Medical Summary | Summary of Care ---
Author Name Unknown Organization [facility] Address [address] [facility] [place] [address] Phone [phone] Care Team Providers Care Shorts Sifter Name Role Phone Richard Marshall DO Primary Care Provider [phone] Reason for Visit * Reason Onset Date Comments Precert Future 04/21/2024 Yaritza/Carbo/Taxol Encounter Details Date Type Department Care Team (Late st Contact Info) Description 04/21/2024 Telephone Hematology/Oncology Treatment, [place] [address] [place] [address] Nicole Vinson MD 400 [facility] [place] [phone] Precert Future (Yaritza/Carbo/Taxol) [...] Respimat 2.5-2.5 MCG/ACT Inhalation Aerosol Solution (Tiotropium [place]-Olodaterol)I ndications:COPD, severity to be determined (HCC) Inhale [...] and a lab appointment [facility] after [facility] "CBCD,CMP, UA, Hep B" * Telephone Encounter [...] Care Team (Late st Contact Info) Description 05/12/2024 9:30 AM EDT Office Visit General Surgery, [facility] 132 [facility] [place] [address] Thiago Parker MD [address] [facility] [place] [address] 06/15/2024 8:20 AM EST Office Visit Pulmonary Medicine, [facility] 132 [facility] [place] [address] Sav Olivia MD [address] [facility] [place] [address] 06/28/2024 8:30 AM EST Office Visit Ophthalmology, [facility] 132 [facility] [place] [address] Anthony Grey, DO 132 [facility] [place] [address] 03/10/2025 10:00 AM EDT Office Visit Sleep Disorders Ctr [address] [place] [phone] Margie Gutierrez, DO 132 [facility] [place] [address] Scheduled Orders Name Type Priority Associated Diagnoses [...] this encounter Medical Devices Implanted Type Area Plush Brusher Device Identifier Shelf Expiration Date Model / Serial / Lot Port Implant W8f Poly Cath - [id number] Implanted:Qty : 1 on 04/20/2024 by Nathan Hardwick MD at OR [facility] Right: Chest CR BARD : PERIPHERAL VASCULAR [id number] 06/25/2025 [id number] / / [id number] documented as of this encounter Visit Diagnoses Diagnosis Lung cancer metastatic to bone (HCC)- Primary documented in this encounter Care Teams Shorts Sifter Relationship Specialty Start Date End Date Richard Marshall DO [address] [place], [place] [phone] PCP - General Family Medicine 08/26/22 documented as of this encounter
--- OUTSIDE RECORDS SUMMARY | 2024-08-11 03:41 | External Medical Summary | Summary of Care ---
Author Name Unknown Organization [facility] Address [address] [facility] [place] [address] Phone [phone] Care Team Providers Care Social Insurance Specialist Name Role Phone Richard Marshall DO Primary Care Provider [phone] Reason for Visit * Reason Onset Date Comments Precert Future 04/21/2024 Yaritza/Carbo/Taxol Encounter Details Date Type Department Care Team (Late st Contact Info) Description 04/21/2024 Telephone Hematology/Oncology Treatment, [place] [address] [place] [address] Nicole Vinson MD 400 [facility] [place] [phone] Precert Future (Yarizta/Carbo/Taxol) Allergies Active Allergy Reactions Criticality Noted Date Comments Iodinated Contrast Media 07/05/2021 "itchy, rash and hives" CT Scan documented as of this encounter (statuses as of 05/02/2024) Medications Medication Sig Dispensed Refills Start Date End Date Status Vitamin D (Cholecalciferol) 50 MCG (1999 UT) Oral Capsule Take by mouth at bedtime. Active Ferrous Sulfate 325 (65 Fe) MG Oral Tablet (Feosol) Take 1 Tablet by mouth at bedtime. Active Stiolto Respimat 2.5-2.5 MCG/ACT Inhalation Aerosol Solution (Tiotropium [place]-Olodaterol)I ndications:COPD, severity to be determined (HCC) Inhale [...] as of this encounter (statuses as of 05/02/2024) Active Problems Problem Noted Date Diagnosed Date [...] as of this encounter (statuses as of 05/02/2024) Resolved Problems Problem Noted Date Diagnosed Date Resolved Date COPD, group A, by GOLD 2017 classification 07/07/2022 04/07/2024 Overview: Per COPD GOLD Classification COPD, severity to be determined 07/09/2021 07/10/2022 Overview: Per COPD GOLD Classification documented as of this encounter (statuses as of 05/02/2024) Immunizations Name Administration Dates Next Due Covid-19 [...] and a lab appointment directly after at [facility] "CBCD,CMP, UA, Hep B" * Telephone [...] Pt Ed by Nurse Hematology/Oncology [facility] [place] [address] [place] [phone] She[place], Nurse Hem Onc [address] [place] [address] 05/11/2024 10:00 AM EDT Laboratory Laboratory [facility] [place] [address] [place] [phone] Shereen, Lab [address] [facility] [place] [address] 05/12/2024 9:30 AM EDT Office Visit General Surgery, [facility] 132 [facility] [place] [address] Thiago Parker MD [address] [place] [address] 05/16/2024 10:30 AM EDT Hem/Onc Treatment Hematology/Oncology Treatment, [place] [address] [place], [place] [phone] Shereen, Chair 9 Hem Onc [place] 200 [facility] [place], [place] [address] 06/15/2024 8:20 AM EST Office Visit Pulmonary Medicine, [facility] 132 [facility] [place] [address] Sav Olivia MD [address] [place] [address] 06/28/2024 8:30 AM EST Office Visit Ophthalmology, [facility] 132 [facility] [place] [address] Anthony Grey, [address] [place] [address] 03/10/2025 10:00 AM EDT Office Visit Sleep Disorders Ctr [facility] 132 [facility] [place] [phone] Margie Gutierrez Elyssa, DO [address] [place] [address] Scheduled Orders Name Type Priority Associated Diagnoses [...] this encounter Medical Devices Implanted Type Area Bone Worker Device Identifier Shelf Expiration Date Model / Serial / Lot Port Implant W8f Poly Cath - [id number] Implanted:Qty : 1 on 04/20/2024 by Nathan Hardwick MD at [facility] Right: Chest CR BARD : PERIPHERAL VASCULAR [id number] 06/25/2025 [id number] / / [id number] documented as of this encounter Visit Diagnoses Diagnosis Lung cancer metastatic to bone (HCC)- Primary documented in this encounter Care Teams Social Insurance Specialist Relationship Specialty Start Date End Date Richard Marshall DO [address] [place] [id number] PCP - General Family Medicine 08/26/22 documented as of this encounter
--- OUTSIDE RECORDS SUMMARY | 2024-08-11 03:41 | External Medical Summary | Summary of Care ---
Author Name Unknown Organization [facility] Address [address] [facility] [place] [address] Phone [phone] Care Team Providers Care Garment Parts Cutter Hand Name Role Phone Richard Marshall DO Primary Care Provider [phone] Reason for Visit * Reason Onset Date Comments Precert Future 04/21/2024 Yaritza/Carbo/Taxol Encounter Details Date Type Department Care Team (Late st Contact Info) Description 04/21/2024 Telephone Hematology/Oncology Treatment, [place] [address] [place] [address] Nicole Vinson MD 400 [facility] [place] [phone] Precert Future (Yaritza/Carbo/Taxol) [...] Respimat 2.5-2.5 MCG/ACT Inhalation Aerosol Solution (Tiotropium [place]-Olodaterol)I ndications:COPD, severity to be determined (HCC) Inhale [...] 04/28/2024 2:00 PM EDT SIM completed 04/27/24. * Telephone Encounter - Whit Martinez RN [...] 9:30 AM EDT Office Visit General Surgery, [facility] [place] [address] Thiago Parker MD [address] [facility] [place] [address] 06/15/2024 8:20 AM EST Office Visit Pulmonary Medicine, [facility] 132 [facility] [place] [address] Sav Olivia MD [address] [place] [address] 06/28/2024 8:30 AM EST Office Visit Ophthalmology, [facility] 132 [facility] [place] [address] Anthony Grey, DO 132 [facility] [place] [address] 03/10/2025 10:00 AM EDT Office Visit Sleep Disorders Ctr [facility] 132 [facility] [place] [phone] Margie Gutierrez, DO 132 [facility] [place] [address] Scheduled Orders Name Type Priority Associated Diagnoses [...] this encounter Medical Devices Implanted Type Area Class C Driver Device Identifier Shelf Expiration Date Model / Serial / Lot Port Implant W8f Poly Cath - [id number] Implanted:Qty : 1 on 04/20/2024 by Nathan Hardwick MD [facility] Right: Chest CR BARD : PERIPHERAL VASCULAR [id number] 06/25/2025 [id number] / / [id number] documented as of this encounter Visit Diagnoses Diagnosis Lung cancer metastatic to bone (HCC)- Primary documented in this encounter Care Teams Garment Parts Cutter Hand Relationship Specialty Start Date End Date Richard Marshall DO [address] [place] [phone] PCP - General Family Medicine 08/26/22 documented as of this encounter
--- OUTSIDE RECORDS SUMMARY | 2024-08-11 03:41 | External Medical Summary | Summary of Care ---
Author Name Unknown Organization [facility] Address [address] [facility] [place] [address] Phone [phone] Care Team Providers Care Photovoltaic Fabrication Technician Name Role Phone Richard Marshall DO Primary Care Provider [phone] Reason for Visit * Reason Onset Date Comments Precert Future 04/21/2024 Yaritza/Carbo/Taxol Encounter Details Date Type Department Care Team (Late st Contact Info) Description 04/21/2024 Telephone Hematology/Oncology Treatment, [place] [address] [place] [address] Nicole Vinson MD 400 [facility] [place] [phone] Precert Future (Yaritza/Carbo/Taxol) Allergies [...] Respimat 2.5-2.5 MCG/ACT Inhalation Aerosol Solution (Tiotropium [place]-Olodaterol)I ndications:COPD, severity to be determined (HCC) Inhale [...] Encounter - David Burton RN - 05/05/2024 10:23 AM EDT Pt will completed RT 05/09 per Rad Onc. * Telephone Encounter - David Burton RN - 05/05/2024 8:26 AM EDT TT sent to [facility] Rad Onc to follow up. * Telephone Encounter - Dvaid Burton RN - 05/02/2024 8:24 AM EDT [...] and a lab appointment directly after at [facility] "CBCD,CMP, UA, Hep B" * Telephone [...] AM EDT Pt Ed by Nurse Hematology/Oncology [facility] [place] [address] [place] [phone] She[place] Nurse Hem Onc [facility] 200 [facility] [place] [address] 05/11/2024 10:00 AM EDT Laboratory Laboratory [facility] [place] [address] [place] [phone] Shereen, Lab [facility] 200 [facility] [place] [address] 05/12/2024 9:30 AM EDT Office Visit General Surgery, [facility] 132 [facility] [place] [address] Thiago Parker MD [address] [place] [address] 05/16/2024 10:30 AM EDT Hem/Onc Treatment Hematology/Oncology Treatment, [place] [address] [place] [phone] Shereen, Chair 9 Hem Onc [facility] 200 [facility] [place] [address] 06/15/2024 8:20 AM EST Office Visit Pulmonary Medicine, [facility] 132 [facility] [place] [address] Sav Olivia MD [address] [facility] [address] 06/28/2024 8:30 AM EST Office Visit Ophthalmology, [facility] 132 [facility] [place] [address] Anthony Grey, DO 132 [facility] [place] [address] 03/10/2025 10:00 AM EDT Office Visit [facility] Disorders Ctr [facility] [place] [phone] Margie Gutierrez, DO 132 [facility] [place] [address] Scheduled Orders Name Type Priority Associated Diagnoses [...] this encounter Medical Devices Implanted Type Area Night Patrol Inspector Device Identifier Shelf Expiration Date Model / Serial / Lot Port Implant W8f Poly Cath - [id number] Implanted:Qty : 1 on 04/20/2024 by Nathan Hardwick MD at [facility] Right: Chest CR BARD : PERIPHERAL VASCULAR [id number] 06/25/2025 [id number] / / [id number] documented as of this encounter Visit Diagnoses Diagnosis Lung cancer metastatic to bone (HCC)- Primary documented in this encounter Care Teams Photovoltaic Fabrication Technician Relationship Specialty Start Date End Date Richard Marshall DO [address] [place] [address] PCP - General Family Medicine 08/26/22 documented as of this encounter
--- OUTSIDE RECORDS SUMMARY | 2024-08-11 03:41 | External Medical Summary | Summary of Care ---
Author Name Unknown Organization [facility] Address [address] [facility] [place] [address] Phone [phone] Care Team Providers Care Content Editor Name Role Phone Richard Marshall DO Primary Care Provider [phone] Reason for Visit * Reason Onset Date Comments Outpatient Testing 04/21/2024 Kristina, Her 2 Encounter Details Date Type Department Care Team (Late st Contact Info) Description 04/21/2024 Telephone Hematology/Oncology Treatment, [place] [address] [place] [address] Nicole Vinson MD [address] [facility] [place] [address] Outpatient Testing (MyGenvar, Her2) Allergies [...] Respimat 2.5-2.5 MCG/ACT Inhalation Aerosol Solution (Tiotropium [place]-Olodaterol)I ndications:COPD, severity to be determined (HCC) Inhale [...] AM EDT Pt Ed by Nurse Hematology/Oncology [facility] [place] [address] [place] [phone] [place] Nurse Hem Onc [facility] [address] [place] [address] 05/11/2024 10:00 AM EDT Laboratory Laboratory [facility] [place] [address] [place] [phone] [place] Lab [facility] [address] [place] [address] 05/12/2024 9:30 AM EDT Office Visit General Surgery, [facility] 132 [facility] [place] [address] Thiago Parker MD [address] [place] [address] 05/16/2024 10:30 AM EDT Hem/Onc Treatment Hematology/Oncology Treatment, [place] [address] [place] [address] Park, Chair 9 Hem Onc Scenery [address] [place] [address] 06/15/2024 8:20 AM EST Office Visit Pulmonary Medicine, [facility] [address] [facility] [place] [address] Sav Olivia MD [address] [place] [address] 06/28/2024 8:30 AM EST Office Visit Ophthalmology, [facility] [address] [facility] [place] [address] Anthony Grey, DO [address] [place] [address] 03/10/2025 10:00 AM EDT Office Visit Sleep Disorders Ctr [facility] 132 [facility] [place] [phone] Margie Gutierrez, DO [address] [place] [address] Health Maintenance Due Date Last Done Comments [...] encounter Medical Devices Implanted Type Area Financial Aid Device Identifier Shelf Expiration Date Model / Serial / Lot Port Implant W8f Poly Cath - [id number] Implanted:Qty : 1 on 04/20/2024 by Nathan Hardwick MD at [facility] Right: Chest CR BARD : PERIPHERAL VASCULAR [id number] 06/25/2025 [id number] / / [id number] documented as of this encounter Procedures Procedure [...] Nicole Vinson MD LAB BLOOD ORDERABLES LABORATORY [facility] [address] [place] [address] documented in this encounter Visit Diagnoses Diagnosis Lung cancer metastatic to bone (HCC)- Primary documented in this encounter Care Teams Content Editor Relationship Specialty Start Date End Date Richard Marshall DO [address] [place], [place] [phone] PCP - General Family Medicine 08/26/22 documented as of this encounter
--- OUTSIDE RECORDS SUMMARY | 2024-08-11 03:41 | External Medical Summary | Summary of Care ---
Author Name Unknown Organization [facility] Address [address] [facility] [place] [address] Phone [phone] Care Team Providers Care Stevedoring Supervisor Name Role Phone Richard Marshall DO Primary Care Provider [phone] Reason for Referral * Evaluate & Treat - Unlimited Visits (Within 3 days (urgent)) - Pending Review Specialty Diagnoses / Procedures Referred By Contac t Referred To Contact Radiation Oncology Diagnoses Lung cancer metastatic to bone (HCC) Pain from bone metastases (HCC) Cancer, metastatic to bone (HCC) Lesion of thoracic vertebra Nicole Vinson MD [address] [place] [address] Referral ID Status Reason Start Date Expiration Date Visits Requested Visits Authorized [id number] Pending Review Specialty Services Required 04/18/2024 999 999 Question Answer Referral Priority Within 3 days (urgent) Where should this appointment be scheduled? External - [place] Comments XRT to T2 Reason for Visit * Reason Comments Follow Up 2 week Encounter Details Date Type Department Care Team (Late st Contact Info) Description 04/18/2024 2:30 PM EDT Office Visit Hematology/Oncology [facility] [address] [place] [address] Nicole Vinson MD 400 [place] [...] as of this encounter (statuses as of 04/26/2024) Medications Medication Sig Dispensed Refills Start Date End Date Status Vitamin D (Cholecalciferol) 50 MCG (1999 UT) Oral Capsule Take by mouth at bedtime. Active Ferrous Sulfate 325 (65 Fe) MG Oral Tablet (Feosol) Take 1 Tablet by mouth at bedtime. Active Stiolto Respimat 2.5-2.5 MCG/ACT Inhalation Aerosol Solution (Tiotropium [place]-Olodaterol) Indications:COPD, severity to be determined ([facility] [...] as of this encounter (statuses as of 04/26/2024) Active Problems Problem Noted Date Diagnosed Date [...] as of this encounter (statuses as of 04/26/2024) Resolved Problems Problem Noted Date Diagnosed Date Resolved Date COPD, group A, by GOLD 2017 classification 07/07/2022 04/07/2024 Overview: Per COPD GOLD Classification COPD, severity to be determined 07/09/2021 07/10/2022 Overview: Per COPD GOLD Classification documented as of this encounter (statuses as of 04/26/2024) Immunizations Name Administration Dates Next Due Covid-19 [...] No 05/22/2023 Does the household have a ascension macombr source of income? 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 She has [facility] consultation appt on 04/07/2024 at [facility], pt wants a closer ([facility]). GI revaluation for lower para esophageal [...] a significant past medical history of recurrent whx-ktrce-xarw lung cancer (adenocarcinoma) that has recurrent several [...] chemo cycle 2) Nicole Vinson MD Hematology/Oncology [address] [place] [address] Communication note (04/26/2024) -Pt has apt with [...] Care as noted on the problem list. MyPopulrisinger is a way you can talk to [...] ON PATHWAY REGIMEN - Non-Small Cell Lung [id number]: Carboplatin AUC=6 + Paclitaxel 200 mg/m + [...] in previously untreated locally advanced or metastatic lrh-pcfqj-bckl lung cancer. J. Clin. Oncol. 2004;22(11):9362-6342. URL: http://www.ncbi.nlm.nih.gov/pubmed/82031757 -Clive Milligan, Luis Enrique R, Trevor WRIGHT, et al. Paclitaxel-carboplatin alone or with bevacizumab for ysa-kntjw-anxp lung cancer. N. Engl. J. Med. 2006;355(24):4431-2743. URL: http://www.ncbi.nlm.nih.gov/pubmed/79558403 Patient Characteristics: Stage IV Metastatic, Nonsquamous, Awaiting [...] with PatientTreatment Details: START ON PATHWAY REGIMEN FCF729: Carboplatin AUC=6 + Paclitaxel 200 mg/m + [...] in previously untreated locally advanced or metastatic low-lwgtq-tozk lung cancer. J. Clin. Oncol. 2004;22(11):0489-7830. URL: http://www.ncbi.nlm.nih.gov/pubmed/35387506 -Clive A, Luis Enrique R, Trevor WRIGHT, et al. Paclitaxel-carboplatin alone or with bevacizumab for tlf-tnfkj-cqdd lung cancer. N. Engl. J. Med. 2006;355(24):8557-3972. URL: http://www.ncbi.nlm.nih.gov/pubmed/47111190 documented in this encounter Plan of Treatment Upcoming Encounters Date Type Department Care Team (Late st Contact Info) Description 05/12/2024 9:30 AM EDT Office Visit General Surgery, [address] [place] [address] Thiago Parker MD [address] [place] [address] 06/15/2024 8:20 AM EST Office Visit Pulmonary Medicine, [facility] 132 [facility] [place] [address] Sav Olivia MD [address] [facility] [address] 06/28/2024 8:30 AM EST Office Visit Ophthalmology, [address] [place] [address] Anthony Grey, DO 132 [facility] [place] [address] 03/10/2025 10:00 AM EDT Office Visit Sleep Disorders Ctr [facility] [address] [place] [phone] Margie Gutierrez, DO [address] [place] [address] Scheduled Referrals Name Type Priority Associated Diagnoses [...] this encounter Medical Devices Implanted Type Area Legal Services Manager Device Identifier Shelf Expiration Date Model / Serial / Lot Port Implant W8f Poly Cath - [id number] Implanted:Qty : 1 on 04/20/2024 by Nathan Hardwick MD at [facility] Right: Chest CR BARD : PERIPHERAL VASCULAR [id number] 06/25/2025 [id number] / / [id number] documented as of this encounter Visit Diagnoses Diagnosis Lung cancer metastatic to bone (HCC)- Primary Recurrent adenocarcinoma of lung, unspecified laterality (HCC) Pain from bone metastases (HCC) Cancer, metastatic to bone (HCC) Secondary malignant neoplasm of bone and bone marrow Lesion of thoracic vertebra Drug-induced constipation Other constipation documented in this encounter Care Teams Stevedoring Supervisor Relationship Specialty Start Date End Date Richard Marshall DO 16 [place], [place] [phone] PCP - General Family Medicine 08/26/22 documented as of this encounter
--- OUTSIDE RECORDS SUMMARY | 2024-08-11 03:41 | External Medical Summary | Summary of Care ---
Author Name Unknown Organization [facility] Address [address] [facility] [place] [address] Phone [phone] Care Team Providers Care Child Psychometrist Name Role Phone Richard Marshall DO Primary Care Provider [phone] Reason for Visit * Reason Onset Date Comments Precert Future 04/21/2024 Yaritza/Carbo/Taxol Encounter Details Date Type Department Care Team (Late st Contact Info) Description 04/21/2024 Telephone Hematology/Oncology Treatment, [place] [address] [place] [address] Nicole Vinson MD 400 [facility] [place] [address] Precert Future [...] 2.5-2.5 MCG/ACT Inhalation Aerosol Solution (Tiotropium [place]-Olodaterol)I ndications:COPD, severity to be determined (HCC) Inhale [...] and a lab appointment directly after at [facility] "CBCD,CMP, UA, Hep B" * Telephone [...] AM EDT Pt Ed by Nurse Hematology/Oncology [facility] [place] 200 [facility] [place] [phone] [place] Nurse Hem Onc [facility] 200 [facility] [place] [address] 05/11/2024 10:00 AM EDT Laboratory Laboratory [facility] Shereen [place] [address] [place] [address] She[place] Lab [facility] 200 [facility] [place] [address] 05/12/2024 9:30 AM EDT Office Visit General Surgery, [facility] 132 [facility] [place] [address] Thiago Parker MD [address] [place], [place] [address] 06/15/2024 8:20 AM EST Office Visit Pulmonary Medicine, [facility] 132 [facility] [place] [address] Sav Olivia MD [address] [facility] [address] 06/28/2024 8:30 AM EST Office Visit Ophthalmology, [facility] 132 [facility] [place] [address] Anthony Grey, DO 132 [facility] [place] [address] 03/10/2025 10:00 AM EDT Office Visit Sleep Disorders Ctr [facility] 132 [facility] [place] [phone] Margie Gutierrez, DO 132 [facility] [place] [address] Scheduled Orders Name Type Priority Associated Diagnoses [...] this encounter Medical Devices Implanted Type Area Metalworking Specialist Device Identifier Shelf Expiration Date Model / Serial / Lot Port Implant W8f Poly Cath - [id number] Implanted:Qty : 1 on 04/20/2024 by Nathan Hardwick MD at [facility] Right: Chest CR BARD : PERIPHERAL VASCULAR [id number] 06/25/2025 [id number] / / [id number] documented as of this encounter Visit Diagnoses Diagnosis Lung cancer metastatic to bone (HCC)- Primary documented in this encounter Care Teams Child Psychometrist Relationship Specialty Start Date End Date Richard Marshall DO [address] [place] [address] PCP - General Family Medicine 08/26/22 documented as of this encounter
--- OUTSIDE RECORDS SUMMARY | 2024-08-11 03:41 | External Medical Summary | Summary of Care ---
Author Name Unknown Organization [facility] Address [address] [facility] [place] [address] Phone [phone] Care Team Providers Care Vehicle Check In Clerk Name Role Phone Richard Marshall DO Primary Care Provider [phone] Reason for Visit * Reason Onset Date Comments Precert Future 04/21/2024 Yaritza/Carbo/Taxol Encounter Details Date Type Department Care Team (Late st Contact Info) Description 04/21/2024 Telephone Hematology/Oncology Treatment, [place] [address] [place] [address] Nicole Vinson MD [address] [facility] [place] [address] Precert Future (Yaritza/Carbo/Taxol) Allergies Active Allergy Reactions Criticality Noted Date Comments Iodinated Contrast Media 07/05/2021 "itchy, rash and hives" CT Scan documented as of this encounter (statuses as of 04/29/2024) Medications Medication Sig Dispensed Refills Start Date End Date Status Vitamin D (Cholecalciferol) 50 MCG (1999 UT) Oral Capsule Take by mouth at bedtime. Active Ferrous Sulfate 325 (65 Fe) MG Oral Tablet (Feosol) Take 1 Tablet by mouth at bedtime. Active Stiolto Respimat 2.5-2.5 MCG/ACT Inhalation Aerosol Solution (Tiotropium [place]-Olodaterol)I ndications:COPD, severity to be determined (HCC) Inhale [...] as of this encounter (statuses as of 04/29/2024) Active Problems Problem Noted Date Diagnosed Date [...] as of this encounter (statuses as of 04/29/2024) Resolved Problems Problem Noted Date Diagnosed Date Resolved Date COPD, group A, by GOLD 2017 classification 07/07/2022 04/07/2024 Overview: Per COPD GOLD Classification COPD, severity to be determined 07/09/2021 07/10/2022 Overview: Per COPD GOLD Classification documented as of this encounter (statuses as of 04/29/2024) Immunizations Name Administration Dates Next Due Covid-19 [...] and a lab appointment directly after at [facility] "CBCD,CMP, UA, Hep B" * Telephone [...] AM EDT Pt Ed by Nurse Hematology/Oncology [facility] 200 [facility] [place] [address] Nurse [place] Hem Onc [address] [place] [address] 05/11/2024 10:00 AM EDT Laboratory Laboratory [facility] [address] [place] [phone] Dillon Regan Scen[address] [place] [address] 05/12/2024 9:30 AM EDT Office Visit General Surgery, [facility] 132 [facility] [place] [address] Thiago Parker MD [address] [place] [address] 05/16/2024 10:30 AM EDT Hem/Onc Treatment Hematology/Oncology Treatment, [place] [address] [place] [phone] She[place], Chair 9 Hem Onc Scenery [address] [place] [address] 06/15/2024 8:20 AM EST Office Visit Pulmonary Medicine, [facility] 132 [facility] [place] [address] Sav Olivia MD [address] [facility] [address] 06/28/2024 8:30 AM EST Office Visit Ophthalmology, [facility] 132 [facility] [place] [address] Atnhony Grey, DO 132 [facility] [place] [address] 03/10/2025 10:00 AM EDT Office Visit Sleep Disorders Ctr [facility] 132 [facility] [place] [phone] Margie Gutierrez, 132 [facility] [place] [address] Scheduled Orders Name Type Priority Associated Diagnoses [...] this encounter Medical Devices Implanted Type Area Deputy Chief Executive Device Identifier Shelf Expiration Date Model / Serial / Lot Port Implant W8f Poly Cath - [id number] Implanted:Qty : 1 on 04/20/2024 by Nathan Hardwick MD at [facility] Right: Chest CR BARD : PERIPHERAL VASCULAR [id number] 06/25/2025 [id number] / / [id number] documented as of this encounter Visit Diagnoses Diagnosis Lung cancer metastatic to bone (HCC)- Primary documented in this encounter Care Teams Vehicle Check In Clerk Relationship Specialty Start Date End Date Richard Marshall DO 16 [place] [address] PCP - General Family Medicine 08/26/22 documented as of this encounter
--- OUTSIDE RECORDS SUMMARY | 2024-08-11 03:41 | External Medical Summary | Summary of Care ---
Author Name Unknown Organization [facility] Address [address] [facility] [place] [address] Phone [phone] Care Team Providers Care Plastic Surgery Assistant Name Role Phone Richard Marshall DO Primary Care Provider [phone] Reason for Visit * Reason Comments Follow Up * Precert (Within 10 days (routine)) - Authorized Specialty Diagnoses / Procedures Referred By Constance molina Referred To Contact Ophthalmology Diagnoses Malignant neoplasm of right choroid (HCC) Procedures INECTION,BEVACIZUMAB, 10 MG NJ INTRAVITREAL NJX PHARMACOLOGIC AGT SPX Anthony Grey DO [address] [place] [address] Referral ID Status Reason Start Date Expiration Date V isits Requested Visits Authorized [id number] Authorized Precert 06/13/2021 07/26/2099 99 99 Encounter Details Date Type Department Care Team (Late st Contact Info) Description 04/26/2024 8:30 AM EDT Office Visit Ophthalmology, [facility] [address] [place] [address] Anthony Grey DO [address] [place] [address] Radiation retinopathy, subsequent encounter* Allergies Active Allergy [...] Respimat 2.5-2.5 MCG/ACT Inhalation Aerosol Solution (Tiotropium [place]-Olodaterol)I ndications:COPD, severity to be determined ([facility] [...] Progress Notes * Anthony Grey, DO - 04/26/2024 8:30 AM EDT [facility] [place] Nursing Notes: Caro Horton TECH 04/26/24 0836 Signed Lanny Andrews is a 59 year old year old female who presents for Radiation Retinopathy OD. Last Office Visit: 02/29/2024 (in office), Visit date not found (telemedicine) Patient currently states she has been dx with stage 4 lung cancer that has metastasized to her bones and her chest. Are you diabetic? No Do you drive? yes OCT image(s) of right eye acquired and filed/scanned into chart. Base Eye Exam Visual Acuity (Snellen - Linear) Right Left Dist cc 20/200 -2 20/30 -2 Dist ph cc NI Correction: Glasses Tonometry (Tonopen, 8:34 AM) Right Left Pressure 16 18 Pupils Shape React APD Right Round Minimal None Left Round Brisk None Visual Gregorio (Counting fingers) Right Left Full Restrictions Total superior nasal, inferior nasal deficiencies Extraocular Movement Right Left Full, Ortho Full, Ortho Neuro/Psych Oriented x3: Yes Mood/Affect: Normal Dilation Both eyes: 0.5% Proparacaine @ 8:32 AM Dilation #2 Both eyes: 1.0% Mydriacyl, 2.5% Phenylephrine @ 8:33 AM Dilation #3 Right eye: 1.0% Mydriacyl @ 8:36 AM Dilation Comments Patient cautioned that effects [...] 63um prior mixed, prior improved 75um, prior [id number] prior STABLE, prior mixed, prior improved 151um OS: 04/26/2024: wnl, no cme/srfluid, pvd--stable OCTA Interpretation: 07/05/2021 OD: significant temporal (including fovea) capillary nonperfusion OS: wnl, no cme/srfluid A/P: 1. Radiation retinopathy OD Followed [facility] specialist - Multiple injections of Avastin; possibly switched to Ozurdex? Moved to [place] [facility] January 2021 - previously in [place] for past 26 years. Injections - started [...] x 11mm -s/p plaque radiation 2004 - [facility] 3. Pseudophakia OD -stable 4. Cataract OS [...] documented in this encounter Nursing Notes * Leann Villa MED ASSIST - 04/26/2024 8:50 AM EDT Lanny K Juliana to receive 18 Avastin 1.25mg Injection of the Right eye. Correct eye confirmed with patient and marked by Anthony Grey DO Avastin 1.25mg lot # [id number] Exp. Date: 05/01/24 * Caro Horton TECH - 04/26/2024 8:23 AM EDT Lanny Andrews is a 59 year old year old female who presents for Radiation Retinopathy OD. Last Office Visit: 02/29/2024 (in office), Visit date not found (telemedicine) Patient currently states she has been dx with stage 4 lung cancer that has metastasized to her bones and her chest. Are you diabetic? No Do you drive? yes OCT image(s) of right eye acquired and filed/scanned into chart. documented in this encounter Plan of Treatment Upcoming Encounters Date Type Department Care Team (Late st Contact Info) Description 05/12/2024 9:30 AM EDT Office Visit General Surgery, [facility] 132 [facility] [place] [address] Thiago Parker MD [address] [place] [address] 06/15/2024 8:20 AM EST Office Visit Pulmonary Medicine, [facility] 132 [facility] [place] [address] Sav Olivia MD [address] [place] [facility] [place] [address] 03/10/2025 10:00 AM EDT Office Visit [facility] Disorders Ctr [facility] 132 [facility] [place] [phone] Margie Gutierrez DO 132 [facility] [place] [address] Scheduled Orders Name Type Priority Associated Diagnoses Orde r Schedule RETINA SCAN DIAGNOSTIC IMAGE, POSTERIOR Procedures Routine Radiation retinopathy, subsequent encounter Ordered: 04/26/2024 Health Maintenance Due Date Last Done Comments [...] this encounter Medical Devices Implanted Type Area Writing Center Director Device Identifier Shelf Expiration Date Model / Serial / Lot Port Implant W8f Poly Cath - [id number] Implanted:Qty : 1 on 04/20/2024 by Nathan Hardwick MD at [facility] Right: Chest CR BARD : PERIPHERAL VASCULAR [id number] 06/25/2025 [id number] / / [id number] documented as of this encounter Visit Diagnoses Diagnosis Radiation retinopathy, subsequent encounter- Primary documented in this encounter Administered Medications Active Administered Medications - up to 3 most recent administrations Medication Order MAR Action Action Date Dose Rate Site bevaCIZumab (Avastin) inj 1.25 mg 1.25 mg, Intravitreal, PRN Other, Starting on Carey 10/08/23 at 0916, Until Thu10/07/24 at 0915, For 365 days Given 04/26/2024 8:51 AM EDT 1.25 mg Eye R ight Given 02/29/2024 8:52 AM EDT 1.25 mg Ey e Right Given 12/17/2023 8:37 AM EDT 1.25 mg Ey e Right ROPivacaine (Naropin) inj 1.5 mg 1.5 mg, Injection, PRN Other, Starting on Carey 10/08/23 at 0916, Until Thu10/07/24 at 0915, For 365 days Given 04/26/2024 8:50 AM EDT 1.5 mg Eye R ight Given 02/29/2024 8:51 AM EDT 1.5 mg Ey e Right Given 12/17/2023 8:37 AM EDT 1.5 mg Ey e Right documented in this encounter Care Teams Plastic Surgery Assistant Relationship Specialty Start Date End Date Richard Marshall DO [address] [place] [address] PCP - General Family Medicine 08/26/22 documented as of this encounter
--- OUTSIDE RECORDS SUMMARY | 2024-08-11 03:41 | External Medical Summary | Summary of Care ---
Author Name Unknown Organization [facility] Address [address] [facility] [place] [address] Phone [phone] Care Team Providers Care Lockstitch Hemmer Name Role Phone Richard Marshall DO Primary Care Provider [phone] Reason for Visit * Reason Onset Date Comments Precert Future 04/21/2024 Yaritza/Carbo/Taxol Encounter Details Date Type Department Care Team (Late st Contact Info) Description 04/21/2024 Telephone Hematology/Oncology Treatment, [place] [address] [place] [address] iNcole Vinson MD 400 [facility] [place] [address] Precert Future (Yaritza/Carbo/Taxol) [...] Respimat 2.5-2.5 MCG/ACT Inhalation Aerosol Solution (Tiotropium [place]-Olodaterol)I ndications:COPD, severity to be determined (HCC) Inhale [...] but Thursday that week) " Taxol/Carbo/Zirabev C1,D1" (lAisson). Please do not schedule on a Thursday. [...] placed 04/20/[address] up with Dr. Vnison regarding chemo start date. Scheduling- please call patient to schedule 1 hour nurse visit apt "chemo ed" the week of 05/09/24 and a lab appointment directly after at [facility] "CBCD,CMP, UA, Hep B" * Telephone Encounter [...] Pt Ed by Nurse Hematology/Oncology Karla Regan [place] [address] [place] [phone] Shereen Nurse Hem Onc [facility] [address] [place] [address] 05/11/2024 10:00 AM EDT Laboratory Laboratory Karla Regan [place] [address] [place] [address] [phone] Shereen Lab [facility] [address] [place] [address] 05/12/2024 9:30 AM EDT Office Visit General Surgery, [facility] [address] Thiago Parker MD [address] [place] [address] 05/16/2024 10:30 AM EDT Hem/Onc Treatment Hematology/Oncology Treatment, [place] [address] [place] [phone] Shereen, Chair 9 Hem Onc [place] [address] [place] [address] 06/15/2024 8:20 AM EST Office Visit Pulmonary Medicine, [facility] 132 [employer] [place] [address] Sav Olivia MD [address] [place] [address] 06/28/2024 8:30 AM EST Office Visit Ophthalmology, [facility] 132 [facility] [place] [address] Anthony Grey, DO 132 [place] [address] 03/10/2025 10:00 AM EDT Office Visit Sleep Disorders Ctr [facility] 132 [place] [phone] Margie Gutierrez, DO 132 [place] [address] Scheduled Orders Name Type Priority Associated Diagnoses [...] this encounter Medical Devices Implanted Type Area Facilities Supervisor Device Identifier Shelf Expiration Date Model / Serial / Lot Port Implant W8f Poly Cath - [id number] Implanted:Qty : 1 on 04/20/2024 by Nathan Hardwick MD at OR [facility] Right: Chest CR BARD : PERIPHERAL VASCULAR [id number] 06/25/2025 [id number] / / [id number] documented as of this encounter Visit Diagnoses Diagnosis Lung cancer metastatic to bone (HCC)- Primary documented in this encounter Care Teams Lockstitch Hemmer Relationship Specialty Start Date End Date Richard Marshall DO 16 [place] [address] PCP - General Family Medicine 08/26/22 documented as of this encounter
--- OUTSIDE RECORDS SUMMARY | 2024-08-11 03:41 | External Medical Summary | Summary of Care ---
Author Name Unknown Organization [facility] Address [address] [facility] [place] [address] Phone [phone] Care Team Providers Care Community Service Organization Director Name Role Phone Richard Marshall DO Primary Care Provider [phone] Reason for Visit * Reason Onset Date Comments Precert Future 04/21/2024 Yaritza/Carbo/Taxol Encounter Details Date Type Department Care Team (Late st Contact Info) Description 04/21/2024 Telephone Hematology/Oncology Treatment, [place] [address] [place] [address] Nicole Vinson MD 400 [facility] [place] [address] Precert Future (Yaritza/Carbo/Taxol) [...] Respimat 2.5-2.5 MCG/ACT Inhalation Aerosol Solution (Tiotropium [place]-Olodaterol)I ndications:COPD, severity to be determined (HCC) Inhale 2 Puffs by mouth daily. 12 g 3 07/24/2021 Active Premarin 0.625 MG/GM Vaginal Cream (Estrogens, Conjugated) Administer into the vagina at bedtime . As directed. 42.5 g 5 10/07/2021 Active Additional Information Patient not taking.Reported on 01/27/2024 Atorvastatin Calcium 40 MG Oral Tablet (Lipitor) [...] 1 Tablet before bedtime. 60 Tablet 04/18/2024 Active dexAMETHasone 4 MG Oral Tablet (Decadron)Indication s:Lung cancer metastatic to bone (HCC),Pain from bone metastases (HCC),Cancer, metastatic to bone (HCC),Lesion of thoracic vertebra Take 2 Tablets by mouth daily with breakfast. 60 Tablet 04/18/2024 4 Active Lactulose 10 GM/15ML Oral Solution (Constulose)Indicati [...] Active Problems Problem Noted Date Diagnosed Date Lung cancer metastatic to bone 04/21/2024 Encounter [...] 9:30 AM EDT Office Visit General Surgery, [facility] 132 [facility] [place] [address] Thiago Parker MD [address] [place] [address] 06/15/2024 8:20 AM EST Office Visit Pulmonary Medicine, [facility] 132 [facility] [place] [address] Sav Olivia MD [address] [place] [address] 06/28/2024 8:30 AM EST Office Visit Ophthalmology, [facility] [address] [place] [address] Anthony Grey, DO [address] [place] [address] 03/10/2025 10:00 AM EDT Office Visit Sleep Disorders Ctr [facility] 132 [facility] [place] [phone] Margie Gutierrez, DO [address] [place] [address] Scheduled Orders Name Type Priority Associated Diagnoses [...] this encounter Medical Devices Implanted Type Area Software Configuration Manager Device Identifier Shelf Expiration Date Model / Serial / Lot Port Implant W8f Poly Cath - [id number] Implanted:Qty : 1 on 04/20/2024 by Nathan Hardwick MD at [facility] Right: Chest CR BARD : PERIPHERAL VASCULAR [id number] 06/25/2025 [id number] / / [id number] documented as of this encounter Visit Diagnoses Diagnosis Lung cancer metastatic to bone (HCC)- Primary documented in this encounter Care Teams Community Service Organization Director Relationship Specialty Start Date End Date Richard Marshall DO 16 [place] [address] PCP - General Family Medicine 08/26/22 documented as of this encounter
--- OUTSIDE RECORDS SUMMARY | 2024-08-11 03:42 | External Medical Summary | Summary of Care ---
Author Name Unknown Organization [facility] Address [address] [facility] [place] [address] Phone [phone] Care Team Providers Care Cat Skinner Name Role Phone Richard Marshall DO Primary Care Provider [phone] Reason for Visit * Reason Comments Follow Up * Precert (Within 10 days (routine)) - Authorized Specialty Diagnoses / Procedures Referred By Constance molina Referred To Contact Ophthalmology Diagnoses Malignant neoplasm of right choroid (HCC) Procedures INECTION,BEVACIZUMAB, 10 MG MT INTRAVITREAL NJX PHARMACOLOGIC AGT SPX Anthony Grey DO [address] [place] [address] Referral ID Status Reason Start Date Expiration Date V isits Requested Visits Authorized [id number] Authorized Precert 06/13/2021 07/26/2099 99 99 Encounter Details Date Type Department Care Team (Late st Contact Info) Description 04/26/2024 8:30 AM EDT Office Visit Ophthalmology, [facility] [address] [place] [address] Anthony Grey DO [address] [place] [address] Radiation retinopathy, subsequent encounter* Allergies Active Allergy [...] Respimat 2.5-2.5 MCG/ACT Inhalation Aerosol Solution (Tiotropium [place]-Olodaterol)I ndications:COPD, severity to be determined ([facility] [...] - 04/26/2024 8:30 AM EDT [facility] [place] Nursing [...] 63um prior mixed, prior improved 75um, prior [id number] prior STABLE, prior mixed, prior improved 151um OS: 04/26/2024: wnl, no cme/srfluid, pvd--stable OCTA Interpretation: 07/05/2021 OD: significant temporal (including fovea) capillary nonperfusion OS: wnl, no cme/srfluid A/P: 1. Radiation retinopathy OD Followed [facility] specialist - Multiple injections of Avastin; possibly switched to Ozurdex? Moved to [email or web address] January 2021 - previously in [place] for past 26 years. Injections - started [...] x 11mm -s/p plaque radiation 2004 - [facility] 3. Pseudophakia OD -stable 4. Cataract [...] Anthony Grey DO Avastin 1.25mg lot # [id number] Exp. Date: 05/01/24 * Caro Horton TECH [...] 9:30 AM EDT Office Visit General Surgery, [facility] 132 [facility] [place] [address] Thiago Parker MD [address] [place] [address] 06/15/2024 8:20 AM EST Office Visit Pulmonary Medicine, [facility] 132 [facility] [place] [address] Sav Olivia MD [address] [place] [facility] [place] [address] 03/10/2025 10:00 AM EDT Office Visit Sleep Disorders Ctr [facility] 132 [facility] [place] [phone] Margie Gutierrez DO 132 [facility] [place] [address] Scheduled Orders Name Type Priority Associated Diagnoses [...] this encounter Medical Devices Implanted Type Area Data Entry Supervisor Device Identifier Shelf Expiration Date Model / Serial / Lot Port Implant W8f Poly Cath - [id number] Implanted:Qty : 1 on 04/20/2024 by Nathan Hardwick MD at [facility] Right: Chest CR BARD : PERIPHERAL VASCULAR [id number] 06/25/2025 [id number] / / [id number] documented as of this encounter Visit Diagnoses [...] Right documented in this encounter Care Teams Cat Skinner Relationship Specialty Start Date End Date Richard Marshall DO 16 [place] [address] PCP - General Family Medicine 08/26/22 documented as of this encounter
--- OUTSIDE RECORDS SUMMARY | 2024-08-11 03:42 | External Medical Summary | Summary of Care ---
Author Name Unknown Organization [facility] Address [address] [facility] [address] Phone [phone] Care Team Providers Care Caramel Candy Maker Name Role Phone Richard Marshall DO Primary Care Provider [phone] Encounter Details Date Type Department Care Team (Late st Contact Info) Description 04/22/2024 Orders Only Hematology/Oncology Treatment, [facility] 400 [facility] [place] [address] Nicole Vinson MD 400 [facility] [phone] Lung cancer metastatic to bone (HCC)* Allergies Active Allergy Reactions Criticality Noted Date Comments Iodinated Contrast Media 07/05/2021 "itchy, rash and hives" CT Scan documented as of this encounter (statuses as of 04/22/2024) Medications Medication Sig Dispensed Refills Start Date End Date Status Vitamin D (Cholecalciferol) 50 MCG (1999 UT) Oral Capsule Take by mouth at bedtime. Active Ferrous Sulfate 325 (65 Fe) MG Oral Tablet (Feosol) Take 1 Tablet by mouth at bedtime. Active Stiolto Respimat 2.5-2.5 MCG/ACT Inhalation Aerosol Solution (Tiotropium [place]-Olodaterol)I ndications:COPD, severity to be determined ([facility]) Inhale 2 Puffs by mouth [...] 4 Active dexAMETHasone 4 MG Oral Tablet (Decadron)Indication [...] as of this encounter (statuses as of 04/22/2024) Active Problems Problem Noted Date Diagnosed Date [...] as of this encounter (statuses as of 04/22/2024) Resolved Problems Problem Noted Date Diagnosed Date Resolved Date COPD, group A, by GOLD 2017 classification 07/07/2022 04/07/2024 Overview: Per COPD GOLD Classification COPD, severity to be determined 07/09/2021 07/10/2022 Overview: Per COPD GOLD Classification documented as of this encounter (statuses as of 04/22/2024) Immunizations Name Administration Dates Next Due Covid-19 [...] 04/26/2024 8:30 AM EDT Office Visit Ophthalmology, [facility] 132 [facility] [place] [address] Anthony Grey, DO 132 [facility] [place] [address] 05/12/2024 9:30 AM EDT Office Visit General Surgery, [facility] 132 [facility] [place] [address] Thiago Parker MD [address] [place] [address] 06/15/2024 8:20 AM EST Office Visit Pulmonary Medicine, [facility] 132 [place] [address] Sav Olivia MD [address] [place] [address] 03/10/2025 10:00 AM EDT Office Visit Sleep Disorders Ctr [facility] 132 [facility] [place] [phone] Margie Gutierrez, 132 [facility] [place] [address] Health Maintenance Due Date Last Done Comments [...] this encounter Medical Devices Implanted Type Area Toolsmith Device Identifier Shelf Expiration Date Model / Serial / Lot Port Implant W8f Poly Cath - [id number] Implanted:Qty : 1 on 04/20/2024 by Nathan Hardwick MD at [facility] Right: Chest CR BARD : PERIPHERAL VASCULAR [id number] 06/25/2025 [id number] / / [id number] documented as of this encounter Visit Diagnoses Diagnosis Lung cancer metastatic to bone (HCC)- Primary documented in this encounter Care Teams Caramel Candy Maker Relationship Specialty Start Date End Date Richard Marshall DO 16 [place] [address] PCP - General Family Medicine 08/26/22 documented as of this encounter
--- OUTSIDE RECORDS SUMMARY | 2024-08-11 03:42 | External Medical Summary | Summary of Care ---
Author Name Unknown Organization [facility] Address [address] [facility] [place] [address] Phone [phone] Care Team Providers Care Pearl Glue Operator Name Role Phone Richard Marshall DO Primary Care Provider [phone] Encounter Details Date Type Department Care Team (Late st Contact Info) Description 04/22/2024 Orders Only Hematology/Oncology Treatment, [facility] 400 [facility] [place] [address] Nicole Vinson MD 400 [place] [phone] Allergies Active Allergy Reactions Criticality Noted Date [...] Respimat 2.5-2.5 MCG/ACT Inhalation Aerosol Solution (Tiotropium [place]-Olodaterol)I ndications:COPD, severity to be determined (HCC) Inhale [...] 04/26/2024 8:30 AM EDT Office Visit Ophthalmology, [facility] 132 [facility] [place] [address] Anthony Grey, DO 132 [facility] [place] [address] 05/12/2024 9:30 AM EDT Office Visit General Surgery, [facility] 132 [facility] [place] [address] Thiago Parker MD [address] [place] [address] 06/15/2024 8:20 AM EST Office Visit Pulmonary Medicine, [facility] 132 [facility] [place] [address] Sav Olivia MD [address] [place] [address] 03/10/2025 10:00 AM EDT Office Visit Sleep Disorders Ctr [facility] 132 [facility] [place] [phone] Margie Gutierrez, DO 132 [facility] [place] [address] Health Maintenance Due Date Last Done Comments [...] this encounter Medical Devices Implanted Type Area Credit Checker Device Identifier Shelf Expiration Date Model / Serial / Lot Port Implant W8f Poly Cath - [id number] Implanted:Qty : 1 on 04/20/2024 by Nathan Hardwick MD at [facility] Right: Chest CR BARD : PERIPHERAL VASCULAR [id number] 06/25/2025 [id number] / / [id number] documented as of this encounter Care Teams Pearl Glue Operator Relationship Specialty Start Date End Date Rcihard Marshall DO 16 [facility] [place] [address] PCP - General Family Medicine 08/26/22 documented as of this encounter
--- OUTSIDE RECORDS SUMMARY | 2024-08-11 03:42 | External Medical Summary | Summary of Care ---
Author Name Unknown Organization [facility] Address [address] [facility] [address] Phone [phone] Care Team Providers Care Bobbin Collector Name Role Phone Richard Marshall DO Primary Care Provider [phone] Reason for Visit * Reason Onset Date Comments Precert Future 04/22/2024 Zometa Encounter Details Date Type Department Care Team (Late st Contact Info) Description 04/22/2024 Telephone Hematology/Oncology [facility] [place] [address] [place] [address] Nicole Vinson MD 400 [facility] [place] [address] Precert Future (Zometa) Allergies Active Allergy Reactions Criticality Noted Date [...] Respimat 2.5-2.5 MCG/ACT Inhalation Aerosol Solution (Tiotropium [place]-Olodaterol)I ndications:COPD, severity to be determined (HCC) Inhale [...] Telephone Encounter - David Burton RN - 04/22/2024 10:13 AM EDT Order placed, beacon built and routed. Per auth team, no auth required, doesn't qualify for assistance. documented in this encounter Plan of Treatment Upcoming Encounters Date Type Department Care Team (Late st Contact Info) Description 04/26/2024 8:30 AM EDT Office Visit Ophthalmology, [facility] 132 [facility] [place] [address] Anthony Grey DO 132 [facility] [place] [address] 05/12/2024 9:30 AM EDT Office Visit General Surgery, [facility] 132 [facility] [place] [address] Thiago Parker MD [address] [place] [address] 06/15/2024 8:20 AM EST Office Visit Pulmonary Medicine, [facility] 132 [facility] [place] [address] Sav Olivia MD [address] [place] [address] 03/10/2025 10:00 AM EDT Office Visit Sleep Disorders Ctr [address] [place] [phone] Margie Gutierrez DO [address] [place] [address] Health Maintenance Due Date Last Done Comments [...] this encounter Medical Devices Implanted Type Area Treatment Supervisor Device Identifier Shelf Expiration Date Model / Serial / Lot Port Implant W8f Poly Cath - [id number] Implanted:Qty : 1 on 04/20/2024 by Nathan Hardwick MD at OR [facility] Right: Chest CR BARD : PERIPHERAL VASCULAR [id number] 06/25/2025 [id number] / / [id number] documented as of this encounter Care Teams Bobbin Collector Relationship Specialty Start Date End Date Richard Marshall DO 16 [facility] [place] [address] PCP - General Family Medicine 08/26/22 documented as of this encounter
--- OUTSIDE RECORDS SUMMARY | 2024-08-11 03:42 | External Medical Summary | Summary of Care ---
Author Name Unknown Organization [facility] Address [address] [facility] [address] Phone [phone] Care Team Providers Care Self Sealing Fuel Tank Builder Name Role Phone Richard Marshall DO Primary Care Provider [phone] Encounter Details Date Type Department Care Team (Late st Contact Info) Description 04/22/2024 Orders Only Hematology/Oncology [facility] [place] [address] [facility] [address] Nicole Vinson MD 400 [facility] [place] [phone] Allergies Active Allergy Reactions Criticality Noted Date [...] Respimat 2.5-2.5 MCG/ACT Inhalation Aerosol Solution (Tiotropium [place]-Olodaterol)I ndications:COPD, severity to be determined (HCC) Inhale [...] 04/26/2024 8:30 AM EDT Office Visit Ophthalmology, [facility] 132 [facility] [place] [address] Anthony Grey, DO 132 [facility] [place] [address] 05/12/2024 9:30 AM EDT Office Visit General Surgery, [facility] 132 [place] [address] Thiago Parker MD [address] [place] [address] 06/15/2024 8:20 AM EST Office Visit Pulmonary Medicine, [facility] 132 [place] [address] Sav Olivia MD [address] [place], [place] [phone] 03/10/2025 10:00 AM EDT Office Visit Sleep Disorders Ctr [facility] 132 [facility] [place] [phone] Margie Gutierrez, 132 [facility] [place] [address] Health Maintenance Due Date Last Done Comments [...] this encounter Medical Devices Implanted Type Area Revenue Cycle Analyst Device Identifier Shelf Expiration Date Model / Serial / Lot Port Implant W8f Poly Cath - [id number] Implanted:Qty : 1 on 04/20/2024 by Nathan Hardwick MD at [facility] Right: Chest CR BARD : PERIPHERAL VASCULAR [id number] 06/25/2025 [id number] / / [id number] documented as of this encounter Care Teams Self Sealing Fuel Tank Builder Relationship Specialty Start Date End Date Richard Marshall DO 16 [place] [address] PCP - General Family Medicine 08/26/22 documented as of this encounter
--- OUTSIDE RECORDS SUMMARY | 2024-08-11 03:42 | External Medical Summary | Summary of Care ---
Author Name Unknown Organization [facility] Address [address] [facility] [place] [address] Phone [phone] Care Team Providers Care Control Valve Technician Name Role Phone Richard Marshall DO Primary Care Provider [phone] Encounter Details Date Type Department Care Team (Late st Contact Info) Description 04/23/2024 Orders Only PATIENT PORTAL DO NOT DELETE THIS DEPT USED BY DAM[place] WOODS [id number] Allergies Active Allergy Reactions Criticality Noted Date Comments Iodinated Contrast Media 07/05/2021 "itchy, rash and hives" CT Scan documented as of this encounter (statuses as of 04/23/2024) Medications Medication Sig Dispensed Refills Start Date End Date Status Vitamin D (Cholecalciferol) 50 MCG (1999 UT) Oral Capsule Take by mouth at bedtime. Active Ferrous Sulfate 325 (65 Fe) MG Oral Tablet (Feosol) Take 1 Tablet by mouth at bedtime. Active Stiolto Respimat 2.5-2.5 MCG/ACT Inhalation Aerosol Solution (Tiotropium [place]-Olodaterol)I ndications:COPD, severity to be determined (HCC) Inhale [...] as of this encounter (statuses as of 04/23/2024) Active Problems Problem Noted Date Diagnosed Date [...] as of this encounter (statuses as of 04/23/2024) Resolved Problems Problem Noted Date Diagnosed Date Resolved Date COPD, group A, by GOLD 2017 classification 07/07/2022 04/07/2024 Overview: Per COPD GOLD Classification COPD, severity to be determined 07/09/2021 07/10/2022 Overview: Per COPD GOLD Classification documented as of this encounter (statuses as of 04/23/2024) Immunizations Name Administration Dates Next Due Covid-19 [...] 04/26/2024 8:30 AM EDT Office Visit Ophthalmology, [facility] 132 [facility] [place] [address] Anthony Grey, DO 132 [facility] [place] [address] 05/12/2024 9:30 AM EDT Office Visit General Surgery, [facility] 132 [place] [address] Thiago Parker MD [address] [place], [place] [phone] 06/15/2024 8:20 AM EST Office Visit Pulmonary Medicine, [facility] 132 [place] [address] Sav Olivia MD [address] [place] [address] 03/10/2025 10:00 AM EDT Office Visit Sleep Disorders Ctr [facility] 132 [facility] [place] [phone] Margie Gutierrez, 132 [facility] [place] [address] Health Maintenance Due Date Last Done Comments [...] this encounter Medical Devices Implanted Type Area Calculus Professor Device Identifier Shelf Expiration Date Model / Serial / Lot Port Implant W8f Poly Cath - [id number] Implanted:Qty : 1 on 04/20/2024 by Nathan Hardwick MD at [facility] Right: Chest CR BARD : PERIPHERAL VASCULAR [id number] 06/25/2025 [id number] / / [id number] documented as of this encounter Care Teams Control Valve Technician Relationship Specialty Start Date End Date Richard Marshall DO 16 [place] [address] PCP - General Family Medicine 08/26/22 documented as of this encounter
--- OUTSIDE RECORDS SUMMARY | 2024-08-11 03:43 | External Medical Summary | Summary of Care ---
Author Name Unknown Organization [facility] Address [address] [facility] [place] [address] Phone [phone] Care Team Providers Care Bus Person Name Role Phone Richard Marshall DO Primary Care Provider [phone] Reason for Visit * Reason Onset Date Comments Precert Future 04/21/2024 Yaritza/Carbo/Taxol Encounter Details Date Type Department Care Team (Late st Contact Info) Description 04/21/2024 Telephone Hematology/Oncology Treatment, [place] [address] [place] [address] Nicole Vinson MD 400 [facility] [place] [phone] Precert Future (Yaritza/Carbo/Taxol) Allergies Active Allergy Reactions Criticality Noted Date Comments Iodinated Contrast Media 07/05/2021 "itchy, rash and hives" CT Scan documented as of this encounter (statuses as of 04/21/2024) Medications Medication Sig Dispensed Refills Start Date End Date Status Vitamin D (Cholecalciferol) 50 MCG (1999 UT) Oral Capsule Take by mouth at bedtime. Active Ferrous Sulfate 325 (65 Fe) MG Oral Tablet (Feosol) Take 1 Tablet by mouth at bedtime. Active Stiolto Respimat 2.5-2.5 MCG/ACT Inhalation Aerosol Solution (Tiotropium [place]-Olodaterol)I ndications:COPD, severity to be determined (HCC) Inhale [...] as of this encounter (statuses as of 04/21/2024) Active Problems Problem Noted Date Diagnosed Date [...] as of this encounter (statuses as of 04/21/2024) Resolved Problems Problem Noted Date Diagnosed Date Resolved Date COPD, group A, by GOLD 2017 classification 07/07/2022 04/07/2024 Overview: Per COPD GOLD Classification COPD, severity to be determined 07/09/2021 07/10/2022 Overview: Per COPD GOLD Classification documented as of this encounter (statuses as of 04/21/2024) Immunizations Name Administration Dates Next Due Covid-19 [...] 04/26/2024 8:30 AM EDT Office Visit Ophthalmology, [facility] [address] [place] [address] Anthony Grey, [address] [place] [address] 05/12/2024 9:30 AM EDT Office Visit General Surgery, [facility] [address] [place] [address] [facility]iago Parker [facility] [address] [facility] [address] 06/15/2024 8:20 AM EST Office Visit Pulmonary Medicine, [facility] 132 [facility] [place] [address] Sav Olivia MD [address] [place] [address] 03/10/2025 10:00 AM EDT Office Visit Sleep Disorders Ctr [facility] 132 [facility] [place] [address] Margie Gutierrez DO 132 [facility] [place] [address] Scheduled Orders Name Type Priority Associated Diagnoses [...] this encounter Medical Devices Implanted Type Area Ginning Operator Device Identifier Shelf Expiration Date Model / Serial / Lot Port Implant W8f Poly Cath - [id number] Implanted:Qty : 1 on 04/20/2024 by Nathan Hardwick MD at OR [facility] Right: Chest CR BARD : PERIPHERAL VASCULAR [id number] 06/25/2025 [id number] / / [id number] documented as of this encounter Visit Diagnoses Diagnosis Lung cancer metastatic to bone (HCC)- Primary documented in this encounter Care Teams Bus Person Relationship Specialty Start Date End Date Richard Marshall DO [address] [place] [address] PCP - General Family Medicine 08/26/22 documented as of this encounter
--- OUTSIDE RECORDS SUMMARY | 2024-08-11 03:43 | External Medical Summary | Summary of Care ---
Author Name Unknown Organization [facility] Address [address] [facility] [place] [address] Phone [phone] Care Team Providers Care Placement Interviewer Name Role Phone Richard Marshall DO Primary Care Provider [phone] Reason for Referral * Evaluate & Treat - Unlimited Visits (Within 3 days (urgent)) - Pending Review Specialty Diagnoses / Procedures Referred By Contac t Referred To Contact Radiation Oncology Diagnoses Lung cancer metastatic to bone (HCC) Pain from bone metastases (HCC) Cancer, metastatic to bone (HCC) Lesion of thoracic vertebra Nicole Vinson MD [address] [place] [phone] Referral ID Status Reason Start Date Expiration Date Visits Requested Visits Authorized [id number] Pending Review Specialty Services Required 04/18/[phone] Question Answer Referral Priority Within 3 days (urgent) Where should this appointment be scheduled? External - [place] Comments XRT to T2 Reason for Visit * Reason Comments Follow Up 2 week Encounter Details Date Type Department Care Team (Late st Contact Info) Description 04/18/2024 2:30 PM EDT Office Visit Hematology/Oncology [facility] [address] [place] [address] Nicole Vinson MD 400 [place] [...] Respimat 2.5-2.5 MCG/ACT Inhalation Aerosol Solution (Tiotropium [place]-Olodaterol) Indications:COPD, severity to be determined ([facility]) Inhale 2 Puffs by mouth daily. [...] hours as needed for Pain, Severe. 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 Olivia on 03/31/2024 when Hematology-Oncology and Radiation Oncology evaluation was requested. She has [facility] consultation appt on 04/07/[address] [facility], pt wants a closer ([facility]). GI revaluation for lower para [...] a significant past medical history of recurrent jbx-nwqzx-qggu lung cancer (adenocarcinoma) that has recurrent several times (>3 times per pt- received treatment in [facility]), status post multiple surgical interventions between [...] chemo cycle 2) documented in this encounter Nursing Notes * [...] ON PATHWAY REGIMEN - Non-Small Cell Lung [id number]: Carboplatin AUC=6 + Paclitaxel 200 mg/m + [...] in previously untreated locally advanced or metastatic cia-glrkj-hphi lung cancer. J. Clin. Oncol. 2004;22(11):7210-3847. URL: http://www.ncbi.nlm.nih.gov/pubmed/07929162 -Clive Milligan, Luis Enrique R, Trevor WRIGHT, et al. Paclitaxel-carboplatin alone or with bevacizumab for ehf-zxiqp-kcko lung cancer. N. Engl. J. Med. 2006;355(24):0147-2951. URL: http://www.ncbi.nlm.nih.gov/pubmed/35162887 Patient Characteristics: Stage IV Metastatic, Nonsquamous, Awaiting [...] with PatientTreatment Details: START ON PATHWAY REGIMEN [id number]: Carboplatin AUC=6 + Paclitaxel 200 mg/m + [...] in previously untreated locally advanced or metastatic bld-vesee-zdiu lung cancer. J. Clin. Oncol. 2004;22(11):4147-9015. URL: http://www.ncbi.nlm.nih.gov/pubmed/48189544 -Clive Milligan, Luis Enrique R, Trevor MC, et al. Paclitaxel-carboplatin alone or with bevacizumab for tme-utrya-ausb lung cancer. N. Engl. J. Med. 2006;355(24):1600-8621. URL: http://www.ncbi.nlm.nih.gov/pubmed/71240315 documented in this encounter Plan of Treatment Upcoming Encounters Date Type Department Care Team (Late st Contact Info) Description 04/26/2024 8:30 AM EDT Office Visit Ophthalmology, [facility] [address] [place] [address] Anthony Grey, DO [address] [place] [address] 05/12/2024 9:30 AM EDT Office Visit General Surgery, [facility] [address] [place] [address] Thiago Parker MD [address] [place] [address] 06/15/2024 8:20 AM EST Office Visit Pulmonary Medicine, [facility] [address] [place] [address] Sav Olivia MD [address] [place] [address] 03/10/2025 10:00 AM EDT Office Visit Sleep Disorders Ctr [address] [place] [phone] Margie Gutierrez, [address] [place] [address] Scheduled Referrals Name Type Priority Associated Diagnoses [...] this encounter Medical Devices Implanted Type Area Exercise Physiologist Certified Device Identifier Shelf Expiration Date Model / Serial / Lot Port Implant W8f Poly Cath - [id number] Implanted:Qty : 1 on 04/20/2024 by Nathan Hardwick MD at [facility] Right: Chest CR BARD : PERIPHERAL VASCULAR [id number] 06/25/2025 [id number] / / [id number] documented as of this encounter Visit Diagnoses Diagnosis Lung cancer metastatic to bone (HCC)- Primary Recurrent adenocarcinoma of lung, unspecified laterality (HCC) Pain from bone metastases (HCC) Cancer, metastatic to bone (HCC) Secondary malignant neoplasm of bone and bone marrow Lesion of thoracic vertebra Drug-induced constipation Other constipation documented in this encounter Care Teams Placement Interviewer Relationship Specialty Start Date End Date Richard Marshall DO [address] [place] [facility] [place] [address] PCP - General Family Medicine 08/26/22 documented as of this encounter
--- OUTSIDE RECORDS SUMMARY | 2024-08-11 03:43 | External Medical Summary | Summary of Care ---
Author Name Unknown Organization [facility] Address [address] [facility] [place] [address] Phone [phone] Care Team Providers Care Eviction Specialist Name Role Phone Richard Marshall DO Primary Care Provider [phone] Reason for Visit * Reason Onset Date Comments Precert Future 04/21/2024 Yaritza/Carbo/Taxol Encounter Details Date Type Department Care Team (Late st Contact Info) Description 04/21/2024 Telephone Hematology/Oncology Treatment, [place] [address] [place] [address] Nicole Vinson MD 400 [facility] [place] [phone] Precert Future [...] Respimat 2.5-2.5 MCG/ACT Inhalation Aerosol Solution (Tiotropium [place]-Olodaterol)I ndications:COPD, severity to be determined (HCC) Inhale [...] 04/26/2024 8:30 AM EDT Office Visit Ophthalmology, [facility] 132 [facility] [place] [address] Anthony Grey DO 132 [facility] [place] [address] 05/12/2024 9:30 AM EDT Office Visit General Surgery, [facility] 132 [facility] [place] [address] Thiago Parker MD [address] [place] [address] 06/15/2024 8:20 AM EST Office Visit Pulmonary Medicine, [facility] 132 [facility] [place] [address] Sav Olivia MD [address] [place] [address] 03/10/2025 10:00 AM EDT Office Visit Sleep Disorders Ctr [facility] [address] [place] [address] Margie Gutierrez, [address] [place] [address] Scheduled Orders Name Type Priority Associated Diagnoses [...] encounter Medical Devices Implanted Type Area Product Support Analyst Device Identifier Shelf Expiration Date Model / Serial / Lot Port Implant W8f Poly Cath - [id number] Implanted:Qty : 1 on 04/20/2024 by Nathan Hardwick MD at [facility] Right: Chest CR BARD : PERIPHERAL VASCULAR [id number] 06/25/2025 [id number] / / [id number] documented as of this encounter Visit Diagnoses Diagnosis Lung cancer metastatic to bone (HCC)- Primary documented in this encounter Care Teams Eviction Specialist Relationship Specialty Start Date End Date Richard Marshall DO [address] [place] [address] [place] [id number] PCP - General Family Medicine 08/26/22 documented as of this encounter
--- OUTSIDE RECORDS SUMMARY | 2024-08-11 03:43 | External Medical Summary | Summary of Care ---
Author Name Unknown Organization [facility] Address [address] [facility] [place] [address] Phone [phone] Care Team Providers Care Blow Mold Technician Name Role Phone Richard Marshall DO Primary Care Provider [phone] Reason for Visit * Reason Onset Date Comments Medication Refill 04/14/2024 Encounter Details Date Type Department Care Team (Late st Contact Info) Description 04/14/2024 Refill Hematology/Oncology [facility] [place] [address] [facility] [address] Nicole Vinson MD 400 [facility] [place] [address] Lung cancer metastatic to bone (HCC) Allergies Active Allergy Reactions Criticality Noted Date Comments Iodinated Contrast Media 07/05/2021 "itchy, rash and hives" CT Scan documented as of this encounter (statuses as of 04/15/2024) Medications Medication Sig Dispensed Refills Start Date End Date Status Vitamin D (Cholecalciferol ) 50 MCG (1999) Oral Capsule Take by mouth at bedtime. Active Ferrous Sulfate 325 (65 Fe) MG Oral Tablet (Feosol) Take 1 Tablet by mouth at bedtime. Active Stiolto Respimat 2.5-2.5 MCG/ACT Inhalation Aerosol Solution (Tiotropium [place]-Olodater ol)Indications:C OPD, severity to be determined ([facility]) [...] Active traZODone HCl 50 MG Oral Tablet (Desyrel)Indicat ions:Primary insomnia Take 2 Tablets by mouth at [...] evening meals. 60 Tablet 3 01/27/2024 Active oxyCODONE HCl 5 MG Oral Capsule (Oxy IR) Take 1 Capsule by mouth every 6 hours as needed for Pain, Severe. Active oxyCODONE-Acetam inophen 5-325 MG Oral Tablet (Percocet)Indica tions:Lung cancer metastatic to bone (HCC) Take 1 Tablet by mouth every 6 hours as needed for Pain, Moderate. 90 Tablet 04/14/2024 Active oxyCODONE-Acetam inophen 5-325 MG Oral Tablet (Percocet)Indica tions:Lung cancer metastatic to bone (HCC) Take 1 Tablet by mouth every 6 hours as needed for Pain, Moderate. 90 Tablet 04/04/2024 4 Discontinue d(Refill) Hospital, Clinic, or Other Facility Administered Medication Ordered Dose Route Frequency Start Date End Date Status bevaCIZumab (Avastin) inj 1.25 mgIndications:Radiation retinopathy, subsequent encounter 1.25 mg IZ PRN 10/08/2023 10/07/2024 Active ROPivacaine (Naropin) inj 1.5 mgIndications:Radiation retinopathy, subsequent encounter 1.5 mg IJ PRN 10/08/2023 10/07/2024 Active documented as of this encounter (statuses as of 04/15/2024) Active Problems Problem Noted Date Diagnosed Date COPD, group B, by GOLD 2017 classification 04/04 Overview: Per COPD GOLD Classification Dermatillomania in adult 03/03/2023 Major depressive disorder, recurrent episode, mo derate 10/28/2021 KRYSTA (generalized anxiety disorder) 10/28/2021 History of tobacco abuse 07/09/2021 GERD (gastroesophageal reflux disease) Mood disorder 07/09/2021 documented as of this encounter (statuses as of 04/15/2024) Resolved Problems Problem Noted Date Diagnosed Date Resolved Date COPD, group A, by GOLD 2017 classification 07/07/2022 04/07/2024 Overview: Per COPD GOLD Classification COPD, severity to be determined 07/09/2021 07/10/2022 Overview: Per COPD GOLD Classification documented as of this encounter (statuses as of 04/15/2024) Immunizations Name Administration Dates Next Due Covid-19 [...] encounter Miscellaneous Notes * Addendum Note - David Burton RN - 04/15/2024 9:24 AM EDTAddended by: DAVID BURTON on: 04/15/2024 09:24 AM Modules accepted: Orders * Telephone Encounter - Belinda Arrington LPN - 04/14/2024 1:34 PM EDTPending Prescriptions: Disp Refills oxyCODONE-Acetaminophen 5-325 MG Oral Tabl*90 Tab*0 Sig: Take 1 Tablet by mouth every 6 hours as needed for Pain, Moderate. * Telephone Encounter - Belinda Arrington LPN - 04/14/2024 1:15 PM EDT Refill request for Oxycodone - Acetaminophen 5-325mg tabs pended below: Last Refill: 04/04/2024 PDMP search: Last filled 04/04/2024, #90, for a 22 day supply Previous prescription from 04/04/2024 is for "Sig - Route: Take 1 Tablet by mouth every 6 hours as needed for Pain, Moderate. - Oral" Patient is not due for a refill until 04/25/2024 Per last OVN: "increased pain medication to percocet 2 tabs po Q6 hours round the clock for the next 1-2 weeks" If patient is to continue to taking 2 tablets by mouth every 6 hours" please update script pended below. This would be for an 11 day supply. Last seen: 04/04/2024 Next Appt.: 04/18/2024 documented in this encounter Plan of Treatment Upcoming Encounters Date Type Department Care Team (Late st Contact Info) Description 04/18/2024 2:30 PM EDT Office Visit Hematology/Oncolog y [facility] [place] [address] [place] [address] Nicole Vinson MD [address] [place] [address] [place] [phone] 04/20/2024 12:28 PM EDT Hospital Encounter OR [facility], Operating Room, [facility] - 4th Floor [address] [place] [phone] Nathan Hardwick MD 400 [place] [address] 04/20/2024 12:28 PM EDT - 04/20/2024 1:23 PM EDT Surgery OR [facility], Operating Room, [facility] - 4th Floor [address] [place] [phone] [facility] [address] INSERT TUNNELED CENTRAL VENOUS ACCESS WITH SUBQ PORT 04/26/2024 8:30 AM EDT Office Visit Ophthalmology, [facility] [address] Anthony Grey DO 132 [facility] [place] [address] 05/12/2024 9:30 AM EDT Office Visit General Surgery, [facility] 132 [facility] [place] [address] Thiago Parker MD [address] [place] [address] 06/15/2024 8:20 AM EST Office Visit Pulmonary Medicine, [facility] 132 [facility] [place] [address] Sav Olivia MD [address] [place] [address] 03/10/2025 10:00 AM EDT Office Visit Sleep Disorders Ctr [facility] 132 [place] [phone] Margie Gutierrez, [address] [place] [address] Scheduled Procedures Name Priority Associated Diagnoses Date/Ti me INSERT TUNNELED CENTRAL VENOUS ACCESS WITH SUBQ PORT Lung cancer metastatic to bone (HCC) 04/20/2024 12:28 PM EDT Health Maintenance Due Date Last Done [...] documented as of this encounter Medical Devices Not on filedocumented as of this encounter Visit Diagnoses Diagnosis Lung cancer metastatic to bone (HCC) Lung cancer metastatic to bone (HCC) documented in this encounter Care Teams Blow Mold Technician Relationship Specialty Start Date End Date Richard Marshall DO [address] [place] [address] PCP - General Family Medicine 08/26/22 documented as of this encounter
--- OUTSIDE RECORDS SUMMARY | 2024-08-11 03:43 | External Medical Summary ---
Author Name Unknown Address Unknown Organization K01:[facility] - [address] [place] [address] Laboratory Report Ordering Provider Test Date Status EDD ROCHA 04/21/2024 14:07:03 Final Observation Date Value Abnormality Reference (Units ) Status COMMENT 04/21/2024 14:07:03 Her2 Final COMMENT 04/21/2024 14:07:03 Ordered by: Dr. Nicole Vinson Final COMMENT 04/21/2024 14:07:03 TT to SM 04/21/24 JCD Final COMMENT 04/21/2024 14:07:03 Per SM ordered 04/21/24 JCD Final Performing Location [facility] - [address] [place] [address]
--- OUTSIDE RECORDS SUMMARY | 2024-08-11 03:43 | External Medical Summary | Summary of Care ---
Author Name Unknown Organization [facility] Address [address] [place] [place] [address] Phone [phone] Care Team Providers Care Gas Or Water Meter Installer Name Role Phone Richard Marshall DO Primary Care Provider [phone] Reason for Visit * Reason Onset Date Comments Scheduling 04/14/2024 Encounter Details Date Type Department Care Team (Late st Contact Info) Description 04/14/2024 Telephone Hematology/Oncology, [facility] [address] [place] [address] Nicole Vinson MD [address] [place] [address] Scheduling Allergies Active Allergy Reactions Criticality Noted Date Comments Iodinated Contrast Media 07/05/2021 "itchy, rash and hives" CT Scan documented as of this encounter (statuses as of 04/14/2024) Medications Medication Sig Dispensed Refills Start Date End Date Status Vitamin D (Cholecalciferol) 50 MCG (1999) Oral Capsule Take by mouth at bedtime. Active Ferrous Sulfate 325 (65 Fe) MG Oral Tablet (Feosol) Take 1 Tablet by mouth at bedtime. Active Stiolto Respimat 2.5-2.5 MCG/ACT Inhalation Aerosol Solution (Tiotropium [place]-Olodaterol )Indications:COPD, severity to be determined (HCC) Inhale [...] hours as needed for Pain, Severe. Active oxyCODONE-Acetamin ophen 5-325 MG Oral Tablet (Percocet)Indicati ons:Lung cancer metastatic to bone (HCC) Take 1 Tablet by mouth every 6 hours as needed for Pain, Moderate. 90 Tablet 04/14/2024 Active Hospital, Clinic, or Other Facility Administered Medication Ordered Dose Route Frequency Start Date End Date Status bevaCIZumab (Avastin) inj 1.25 mgIndications:Radiation retinopathy, subsequent encounter 1.25 mg IZ PRN 10/08/2023 10/07/2024 Active ROPivacaine (Naropin) inj 1.5 mgIndications:Radiation retinopathy, subsequent encounter 1.5 mg IJ PRN 10/08/2023 10/07/2024 Active documented as of this encounter (statuses as of 04/14/2024) Active Problems Problem Noted Date Diagnosed Date COPD, group B, by GOLD 2017 classification 04/04 Overview: Per COPD GOLD Classification Dermatillomania in adult 03/03/2023 Major depressive disorder, recurrent episode, mo derate 10/28/2021 KRYSTA (generalized anxiety disorder) 10/28/2021 History of tobacco abuse 07/09/2021 GERD (gastroesophageal reflux disease) Mood disorder 07/09/2021 documented as of this encounter (statuses as of 04/14/2024) Resolved Problems Problem Noted Date Diagnosed Date Resolved Date COPD, group A, by GOLD 2017 classification 07/07/2022 04/07/2024 Overview: Per COPD GOLD Classification COPD, severity to be determined 07/09/2021 07/10/2022 Overview: Per COPD GOLD Classification documented as of this encounter (statuses as of 04/14/2024) Immunizations Name Administration Dates Next Due Covid-19 [...] 05/22/2023 Does the household have a [facility] source of income? (Household - for [...] encounter Miscellaneous Notes * Telephone Encounter - Marleni Rodgers, WHIT - 04/14/2024 2:04 PM EDT Spoke to patient to schedule the Mediport Insertion for 04/20 at [facility]. Patient identified by: name Person taught: Patient METHOD: Lecture-telephone interview PATIENT INSTRUCTIONS GIVEN: - General Preoperative Instructions Reviewed - NPO Instructions Reviewed, pt to stop eating 8 hours prior to procedure and stop drinking 2 hoursprior to procedure. -Financial Reserve Clerk required Location and check-in instructions Verbalizes understanding of education: Yes Procedure date at time of Imaging Encounter: 04/20 What procedure is patient having? Mediport Insertion Laterality confirmed as Not Applicable Does the patient have a yellow bar? did not The Patient was given the opportunity to ask questions concerning the procedure. Signature: WHIT Rubalcava 04/14/2024 documented in this encounter Plan of Treatment Upcoming Encounters Date Type Department Care Team (Late st Contact Info) Description 04/18/2024 2:30 PM EDT Office Visit Hematology/Oncolog y [facility] Shereen Mims [address] [facility] [phone] Nicole Vinson MD [address] [place] [phone] 04/20/2024 12:28 PM EDT Hospital Encounter OR [facility], Operating Room, [facility] - 4th Floor [address] [place] [phone] Nathan Hardwick MD [address] [place] [address] 04/20/2024 12:28 PM EDT - 04/20/2024 1:23 PM EDT Surgery OR [facility], Operating Room, [facility] - 4th Floor [address] [place] [address] Nathan Hardwick MD [address] [place] [address] INSERT TUNNELED CENTRAL VENOUS ACCESS WITH SUBQ PORT 04/26/2024 8:30 AM EDT Office Visit Ophthalmology, [facility] [address] [place] [address] Anthony Grey, [address] [place] [address] 05/12/2024 9:30 AM EDT Office Visit General Surgery, [facility] [address] [place] [address] Thiago Parker MD [address] [place] [address] 06/15/2024 8:20 AM EST Office Visit Pulmonary Medicine, [facility] [address] [place] [address] Sav Olivia MD [address] [place] [address] 03/10/2025 10:00 AM EDT Office Visit Sleep Disorders Ctr [facility] [address] [place] [phone] Margie Gutierrez DO [address] [place] [address] Scheduled Procedures Name Priority Associated Diagnoses Date/Ti [...] Not on filedocumented as of this encounter Care Teams Gas Or Water Meter Installer Relationship Specialty Start Date End Date Richard Marshall DO [address] [place] [address] PCP - General Family Medicine 08/26/22 documented as of this encounter
--- OUTSIDE RECORDS SUMMARY | 2024-08-11 03:43 | External Medical Summary | Summary of Care ---
Author Name Unknown Organization [facility] Address [address] [place] [facility] [place] [address] Phone [phone] Care Team Providers Care Drywall Hanger Name Role Phone Richard Marshall DO Primary Care Provider [phone] Encounter Details Date Type Department Care Team (Late st Contact Info) Description 04/21/2024 Orders Only Hematology/Oncology Treatment, [place] [address] [place] [address] Nicole Vinson MD 400 [place] [address] Allergies Active Allergy Reactions Criticality Noted [...] Respimat 2.5-2.5 MCG/ACT Inhalation Aerosol Solution (Tiotropium [place]-Olodaterol)I ndications:COPD, severity to be determined (HCC) Inhale [...] 04/26/2024 8:30 AM EDT Office Visit Ophthalmology, [facility] 132 [facility] [place] [address] Anthony Grey, DO 132 [facility] [place] [address] 05/12/2024 9:30 AM EDT Office Visit General Surgery, [facility] 132 [facility] [place] [address] Thiago Parker MD [address] [place] [address] 06/15/2024 8:20 AM EST Office Visit Pulmonary Medicine, [facility] 132 [facility] [address] Sav Olivia MD [address] [place] [address] 03/10/2025 10:00 AM EDT Office Visit Sleep Disorders [facility] 132 [facility] [place] [phone] Margie Gutierrez, 132 [facility] [place] [address] Health Maintenance Due Date Last Done Comments [...] this encounter Medical Devices Implanted Type Area Nitroglycerin Distributor Device Identifier Shelf Expiration Date Model / Serial / Lot Port Implant W8f Poly Cath - [id number] Implanted:Qty : 1 on 04/20/2024 by Nathan Hardwick MD at [facility] Right: Chest CR BARD : PERIPHERAL VASCULAR [id number] 06/25/2025 [id number] / / [id number] documented as of this encounter Care Teams Drywall Hanger Relationship Specialty Start Date End Date Richard Marshall DO 16 [facility] [place] [id number] PCP - General Family Medicine 08/26/22 documented as of this encounter
--- OUTSIDE RECORDS SUMMARY | 2024-08-11 03:43 | External Medical Summary | Summary of Care ---
Author Name Unknown Organization [facility] Address [address] [place] [place] [address] Phone [phone] Care Team Providers Care Specialty Department Supervisor Name Role Phone Richard Marshall DO Primary Care Provider [phone] Encounter Details Date Type Department Care Team (Late st Contact Info) Description 04/21/2024 Orders Only Hematology/Oncology Treatment, [place] [address] [place] [address] Nicole Vinson MD 400 [place] [address] Allergies Active Allergy Reactions Criticality [...] Respimat 2.5-2.5 MCG/ACT Inhalation Aerosol Solution (Tiotropium [place]-Olodaterol)I ndications:COPD, severity to be determined (HCC) Inhale [...] 04/26/2024 8:30 AM EDT Office Visit Ophthalmology, [facility] 132 [facility] [place] [address] Anthony Grey, DO 132 [facility] [place] [address] 05/12/2024 9:30 AM EDT Office Visit General Surgery, [facility] 132 [facility] [place] [address] Thiago Parker MD [address] [place] [address] 06/15/2024 8:20 AM EST Office Visit Pulmonary Medicine, [facility] 132 [facility] [address] Sav Olivia MD [address] [place] [address] 03/10/2025 10:00 AM EDT Office Visit Sleep Disorders [facility] 132 [facility] [place] [phone] Margie Gutierrez, 132 [facility] [place] [address] Health Maintenance Due Date Last Done Comments [...] this encounter Medical Devices Implanted Type Area Peanut Butter Maker Device Identifier Shelf Expiration Date Model / Serial / Lot Port Implant W8f Poly Cath - [id number] Implanted:Qty : 1 on 04/20/2024 by Nathan Hardwick MD at [facility] Right: Chest CR BARD : PERIPHERAL VASCULAR [id number] 06/25/2025 [id number] / / [id number] documented as of this encounter Care Teams Specialty Department Supervisor Relationship Specialty Start Date End Date Richard Marshall DO 16 [facility] [place] [phone] PCP - General Family Medicine 08/26/22 documented as of this encounter
--- OUTSIDE RECORDS SUMMARY | 2024-08-11 03:43 | External Medical Summary | Summary of Care ---
Author Name Unknown Organization [facility] Address [address] [facility] [place] [address] Phone [phone] Care Team Providers Care Program Admin Name Role Phone Richard Marshall DO Primary Care Provider [phone] Reason for Visit * Reason Onset Date Comments Medication Refill 04/14/2024 Encounter Details Date Type Department Care Team (Late st Contact Info) Description 04/14/2024 Refill Hematology/Oncology [facility] Shereen Meriden 200 [facility] [address] Nicole Vinson MD 400 [facility] [place] [phone] Lung cancer metastatic [...] 2.5-2.5 MCG/ACT Inhalation Aerosol Solution (Tiotropium [place]-Olodater ol)Indications:C OPD, severity to be determined ([facility]) Inhale 2 Puffs by mouth [...] 04/18/2024 2:30 PM EDT Office Visit Hematology/Oncology [facility] 200 [facility] [phone] Nicole Vinson MD [address] [place] [address] [place] [address] 04/26/2024 8:30 AM EDT Office Visit Ophthalmology, [facility] [address] [place] [address] Anthony Grey, DO [address] [place] [address] 05/12/2024 9:30 AM EDT Office Visit General Surgery, [facility] 132 [facility] [address] Thiago Parker MD [address] [place] [address] 06/15/2024 8:20 AM EST Office Visit Pulmonary Medicine, [facility] 132 [facility] [place] [address] Sav Olivia MD [address] [place] [address] 03/10/2025 10:00 AM EDT Office Visit Sleep Disorders Ctr [facility] 132 [facility] [place] [phone] Margie Gutierrez DO 132 [facility] [place] [address] Health Maintenance Due Date Last Done Comments [...] (HCC) documented in this encounter Care Teams Program Admin Relationship Specialty Start Date End Date Richard Marshall DO [address] [place] [address] PCP - General Family Medicine 08/26/22 documented as of this encounter
--- OUTSIDE RECORDS SUMMARY | 2024-08-11 03:43 | External Medical Summary | Summary of Care ---
Author Name Unknown Organization [facility] Address [address] [place] [address] Phone [phone] Care Team Providers Care Assessment Analyst Name Role Phone Richard Marshall DO Primary Care Provider [phone] Reason for Visit * Reason Onset Date Comments Films 04/21/2024 Encounter Details Date Type Department Care Team (Late st Contact Info) Description 04/21/2024 Telephone Radiology Film File [address] [place] [address] Support, Imaging Radiology [address] [place], [place] [phone] Films Allergies Active Allergy Reactions Criticality Noted Date [...] Respimat 2.5-2.5 MCG/ACT Inhalation Aerosol Solution (Tiotropium [place]-Olodaterol)I ndications:COPD, severity to be determined (HCC) Inhale [...] encounter Miscellaneous Notes * Telephone Encounter - Thiago Ram, Epic Support - 04/21/2024 10:14 AM EDT Huy Escalera requesting 04-01-2022 to 04-20-2024 CT CHESTs, PET, US Endo, IR BX, IR Interventional images be pushed through PACS. [place] Authorization to Release on file. Images pushed to [facility] PACS external connection. documented in this encounter Plan of Treatment Upcoming Encounters Date Type Department Care Team (Late st Contact Info) Description 04/26/2024 8:30 AM EDT Office Visit Ophthalmology, [facility] [place] [address] Anthony Grey DO 132 [facility] [place] [address] 05/12/2024 9:30 AM EDT Office Visit General Surgery, [facility] 132 [facility] [place] [address] Thiago Parker MD [address] [place] [address] 06/15/2024 8:20 AM EST Office Visit Pulmonary Medicine, [facility] [address] [facility] [place] [address] Sav Olivia MD [address] [facility] [address] 03/10/2025 10:00 AM EDT Office Visit Sleep Disorders Ctr [facility] 132 [facility] [place] [phone] Margie Gutierrez DO 132 [facility] [place] [address] Health Maintenance Due Date Last Done Comments [...] encounter Medical Devices Implanted Type Area Security Site Supervisor Device Identifier Shelf Expiration Date Model / Serial / Lot Port Implant W8f Poly Cath - [id number] Implanted:Qty : 1 on 04/20/2024 by Nathan Hardwick MD at OR [facility] Right: Chest CR BARD : PERIPHERAL VASCULAR [id number] 06/25/2025 [id number] / / [id number] documented as of this encounter Care Teams Assessment Analyst Relationship Specialty Start Date End Date Richard Marshall DO [address] [place] [address] PCP - General Family Medicine 08/26/22 documented as of this encounter
--- OUTSIDE RECORDS SUMMARY | 2024-08-11 03:43 | External Medical Summary | Summary of Care ---
Author Name Unknown Organization [facility] Address [address] [facility] [place] [address] Phone [phone] Care Team Providers Care Pantograph Setter Name Role Phone Richard Marshall DO Primary Care Provider [phone] Reason for Visit * Reason Onset Date Comments Outpatient Testing 04/21/2024 Kristina, Her 2 Encounter Details Date Type Department Care Team (Late st Contact Info) Description 04/21/2024 Telephone Hematology/Oncology Treatment, [place] [address] [place] [address] Nicole Vinson MD 400 [place] [address] Outpatient Testing (My[facility], Her2) Allergies [...] Respimat 2.5-2.5 MCG/ACT Inhalation Aerosol Solution (Tiotropium [place]-Olodaterol)I ndications:COPD, severity to be determined (HCC) Inhale [...] 04/26/2024 8:30 AM EDT Office Visit Ophthalmology, [facility] 132 [facility] [place] [address] Anthony Grey DO 132 [facility] [place] [address] 05/12/2024 9:30 AM EDT Office Visit General Surgery, [facility] 132 [facility] [place] [address] Thiago Parker MD [address] [place] [address] 06/15/2024 8:20 AM EST Office Visit Pulmonary Medicine, [facility] 132 [facility] [place] [address] Sav Olivia MD [address] [facility] [address] 03/10/2025 10:00 AM EDT Office Visit Sleep Disorders Ctr [facility] 132 [facility] [place] [phone] Margie Gutierrez, 132 [facility] [place] [address] Pending Results Name Type Priority Associated Diagnoses Date /Time ANATOMIC PATHOLOGY (BM/SURGICAL/CYTOLOGY) ADD ON REQUEST Lab Routine Lung cancer metastatic to bone (HCC) 04/21/2024 2:07 PM EDT Health Maintenance Due Date Last [...] encounter Medical Devices Implanted Type Area Bone Puller Device Identifier Shelf Expiration Date Model / Serial / Lot Port Implant W8f Poly Cath - [id number] Implanted:Qty : 1 on 04/20/2024 by Nathan Hardwick MD at OR [facility] Right: Chest CR BARD : PERIPHERAL VASCULAR [id number] 06/25/2025 [id number] / / [id number] documented as of this encounter Visit Diagnoses Diagnosis Lung cancer metastatic to bone (HCC)- Primary documented in this encounter Care Teams Pantograph Setter Relationship Specialty Start Date End Date Richard Marshall DO [address] [place] [address] [place] [address] PCP - General Family Medicine 08/26/22 documented as of this encounter
--- OUTSIDE RECORDS SUMMARY | 2024-08-11 03:43 | External Medical Summary | Summary of Care ---
Author Name Unknown Organization [facility] Address 100 [facility] [place] [address] Phone [phone] Care Team Providers Care Coal Hiker Name Role Phone Richard Marshall DO Primary Care Provider Encounter Details Date Type Department Care Team (Latest Contact Info) Description 04/13/2024 8:04 AM EDT - 04/13/2024 11:59 PM EDT Hospital Encounter Radiology, [facility] 400 [facility] [place] [phone] Arrived Discharge Disposition: Home - Self Care Allergies Active Allergy Reactions Criticality Noted Date [...] Respimat 2.5-2.5 MCG/ACT Inhalation Aerosol Solution (Tiotropium [place]-Olodaterol )Indications:COPD, severity to be determined (HCC) Inhale [...] needed for Pain, Moderate. 90 Tablet 04/04/2024 Active documented as of this encounter (statuses [...] Sign Reading Time Taken Comments Blood Pressure 123/91 04/13/2024 9:25 AM EDT Pulse 80 04/13/2024 9:25 AM EDT Temperature - - Respiratory Rate 17 04/13/2024 9:25 AM EDT Oxygen Saturation 97% 04/13/2024 9:25 AM EDT Inhaled Oxygen Concentration - - Weight - - Height - - Body Mass Index - - documented in this encounter Nursing Notes * Jani Ruiz, RN - 04/13/2024 9:00 AM EDT Procedure: CT Guided Left Iliac mass biopsy Pt placed on procedure table with comfort measures intact. Hemodynamic monitoring placed and initiated, VS stable. Pt denies any complaints at current time. CT national sales consultant images obtained. Timeout performed by Dr. Nathan Hardwick at 0915. Dr. Hardwick reassessed patient immediately prior to moderate sedation administration and procedure start. Patient prepped for procedure. Skin around biopsy area cleaned with chloraprep and dried. 10 mL 1% buffered lidocaine administered locally to Left posterior hip by . Access obtained. Images obtained. Access advanced. Images obtained. Biopsy obtained. Slides prepared and given to test lab technician who used telecytology method to verify adequacy of cellular material. Access removed. Pressure applied by . Gauze and Tegaderm applied to site. Post procedure image obtained. Patient tolerated procedure well without complications. All wires, catheters, sheaths and other devices have been inspected prior to the procedure for damage. All items not intended to remain in the patient have been inspected, accounted for and have beenremoved from the patient at the end of the procedure. This has been confirmed by the operating physician. Pt recieved moderate sedation for their procedure, the patient recieved fentanyl and versed and wassedated for a total of 17 minutes. Start 908 End 925 Total medications given Versed: 1 mg Fentanyl: 75 mcg 1% buffered lidocaine: 10 mL documented in this encounter Plan of Treatment Upcoming Encounters Date Type Department Care Team (Late st Contact Info) Description 04/18/2024 2:30 PM EDT Office Visit Hematology/Oncology [facility] [address] [place] [phone] Nicole Vinson MD 400 [place] [phone] 04/26/2024 8:30 AM EDT Office Visit Ophthalmology, [facility] 132 [facility] [place] [address] Anthony Grey DO 132 [place] [address] 05/12/2024 9:30 AM EDT Office Visit General Surgery, [facility] 132 [facility] [address] Thiago Parker MD 100 [place], [place] [phone] 06/15/2024 8:20 AM EST Office Visit Pulmonary Medicine, [facility] 132 [facility] [address] Sav Olivia MD [address] [facility] [address] 03/10/2025 10:00 AM EDT Office Visit Sleep Disorders Ctr [facility] [address] [place] [phone] Gutierrez Margie Bergeron, [address] [place] [address] Pending Results Name Type Priority Associated Diagnoses Date /Time CYTOLOGY Pathology Routine 04/13/2024 9:2 0 AM EDT FLOW CYTOMETRY, LEUKEMIA LYMPHOMA PANEL Lab Routine 04/13/2024 9:20 AM EDT Scheduled Orders Name Type Priority Associated Diagnoses Orde r Schedule CYTOLOGY Pathology Routine One Time for 1 Occurrences starting 04/13/2024 until 04/13/2024, 1 completed FLOW CYTOMETRY, LEUKEMIA LYMPHOMA PANEL Lab Routine One Time for 1 Occurrences starting 04/14/2024 until 04/14/2024, 1 completed Health Maintenance Due Date Last Done Comments [...] Not on filedocumented as of this encounter Procedures Procedure Name Priority Date/Time Associated Diagnosis Comments IR BIOPSY STAT 04/13/2024 9:26 AM EDT Lung cancer metastatic to bone (HCC) documented in this encounter Administered Medications Inactive Administered Medications - up to 3 most recent administrations Medication Order MAR Action Action Date Dose Rate Site fentaNYL (PF) inj ONCE PRN INTRA PROCEDURE, Starting on Thu04/13/24 at 0909, Until Thu04/13/24 at 0916, Intra-Op Given 04/13/2024 9:16 AM EDT 25 mcg Given 04/13/2024 9:09 AM EDT 50 mcg midazolam (Versed) 2 MG/2ML inj ONCE PRN INTRA PROCEDURE, Starting on Thu04/13/24 at 0910, Until Thu04/13/24 at 0910, Intra-Op Given 04/13/2024 9:10 AM EDT 1 mg documented in this encounter Care Teams Coal Hiker Relationship Specialty Start Date End Date Richard Marshall DO [address] [place] [address] [place] [address] PCP - General Family Medicine 08/26/22 documented as of this encounter
--- OUTSIDE RECORDS SUMMARY | 2024-08-11 03:43 | External Medical Summary | Summary of Care ---
Author Name Unknown Organization [facility] Address [address] [place] [address] Phone [phone] Care Team Providers Care Aluminum Can Collector Name Role Phone Richard Marshall DO Primary Care Provider [phone] Reason for Visit * Auth/Cert Specialty Diagnoses / Procedures Referred By Contac t Referred To Contact Diagnoses Lung cancer metastatic to bone (HCC) Lung cancer metastatic to bone (HCC) [C34.90, C79.51] Procedures INSER TUNN ACC DEV;5 YRS/OLDER INSERT TUNNELED CENTRAL VENOUS ACCESS WITH SUBQ PORT Nathan Hardwick MD [address] [place] [address] [facility] [address] [id number] Referral ID Status Reason Start Date Expiration Date Visits Re quested Visits Authorized [id number] Encounter Details Date Type Department Care Team (Latest Contact Info) Description 04/20/2024 10:39 AM EDT - 04/20/2024 1:16 PM EDT Hospital Encounter OR [facility], Operating Room, [facility] - 4th Floor [address] [place] [address] Nathan Hardwick MD [address] [place] [address] Discharge Disposition: Home - Self Care Allergies [...] Respimat 2.5-2.5 MCG/ACT Inhalation Aerosol Solution (Tiotropium Beatrice-Olodaterol)I ndications:COPD, severity to be determined ([facility] [...] before bedtime. 1992 mL 2 04/18/2024 Active documented as of this encounter (statuses [...] Next Due Covid-19 Ad26, Single Dose (Jeffrey/J&J) 05/26/2 021 Seasonal Influenza, PF, 6 M & [...] Sign Reading Time Taken Comments Blood Pressure 145/84 04/20/2024 1:08 PM EDT Pulse 70 04/20/2024 1:08 PM EDT Temperature 36.2 C (97.2 F) 04/20/2024 1:08 PM ED T Respiratory Rate 16 04/20/2024 1:08 PM EDT Oxygen Saturation 95% 04/20/2024 1:08 PM EDT Inhaled Oxygen Concentration - - Weight 75.2 kg (165 lb 11.2 oz) 024 10:49 AM EDT Height 162.6 cm (5' 4") 04/20/2024 10:4 9 AM EDT Body Mass Index 28.44 04/20/2024 10:49 AM EDT documented in this encounter Discharge Instructions * Discharge Instr - AVS* Nathan Hardwick MD - 04/20/2024 12:44 PM EDT Discharge Date: 04/20/2024 Provider: Dr. Nathan Hardwick If you are experiencing any problems related to your procedure, please contact Interventional Radiology at [phone] during normal business hours: Thursday- Thursday 7:30 am - 4 pm. If a problem occursoutside of normal business hours, please call the hospital rotary saw operator at [phone] and ask for theInterventional Radiologist feed preparation operator. Contact scheduling for Interventional Radiology at [phone] during normal business hours: Thursday-Thursday, 7:30 am - 4 pm. The information below provides you with the instructions and the list of medications you need to betaking following discharge from the hospital. If you have any questions, please ask before leaving.Please carry this letter with you when you see your doctor in the clinic. If you have questions, you can reach us at the numbers above. SPECIAL INSTRUCTIONS Mediport Insertion (Implanted Central Venous Access) A Mediport is a sealed chamber covered by a silicone disc that is surgically placed in a pocket under the skin on the upper chest, just below the collarbone. This chamber connects to a flexible tube that goes into a large vein in the neck. The tip is near the heart. The port provides direct access to the bloodstream and can be used in drawing blood samples and giving intravenous fluids and medications. Some ports allow CT scan injections; these ports are referred to as "Power Ports." The port will be visible only as a small raised area beneath your skin. Home Care If you experience pain or discomfort at the site you may use a cold pack on the site and/or take acetaminophen (Tylenol) or your preferred pain medicine as directed. Avoid contact sports or any activity that may cause blunt force impact to the port area, as it may damage your port. Avoid strenuous activity for 24 to 48 hours after the procedure. Do not lift anything heavier than 10 pounds for 3 days after the procedure. Gradually increase your activity after 24 to 48 hours after the procedure. No dressing changes or wound care are needed at the insertion site. Your wound is closed with sutures on the inside and then sealed on the outside with a special "skin glue" called Dermabond (a surgical glue). Depending on your physician's preference, there may also be "steri strips" applied. It isvery important to let these special bandages fall off on their own. Please do not scrub or pull these bandages off. You may gently wash the area with soap and water. Depending on your physician's preference, there may also be gauze and Tegaderm (clear) bandage overthe Mediport insertion site. You may remove this bandage in 24 hours. You may shower in 24 hours. Gently wash the area and pat it dry. Please DO NOT take a bath, soak in a hot tub, or swim until the wound is completely healed. Your port must be accessed and flushed/heparinized every 30 days if it is not currently being used. When to Call Interventional Radiology Call Interventional Radiology right away if you have any of the following: Fever above 100 degrees Fahrenheit Increased bleeding, redness, swelling, warmth, or discharge at the incision site. Constant or increasing pain, numbness, coldness, or tingling around the incision area. Vomiting or nausea that does not go away If at any time you experience any of the following or feel you are having a medical emergency, [id number] for emergency assistance. Chest Pain Sudden, severe shortness of breath Rapid heart rate Sudden onset of weakness Do not smoke or use tobacco products in any way! If you feel suicidal or homicidal, please call the crisis hotline at 9-909-735-KRRB ([phone]) MODERATE SEDATION You may have received medication that made you comfortable/sedated you during your procedure. This is considered moderate sedation. This medication was given to relax you. You may also not remember having the procedure done. It may take up to 24 hours for this medication to be out of your system. Because of this, you should observe the following for the next 24 hours: Do not drink alcohol or take depressant drugs. Do not operate any type of machinery that requires hand-eye coordination. Do not sign any legal papers or documents. Do not make any financial decisions. You should be in the presence of an adult for the remainder of the day. If you are experiencing any problems related to your procedure, you should contact the Interventional Radiology physician unless otherwise directed. Driving: You may resume driving 1 day . Diet: You may resume your current diet as tolerated. Return to work or school: You may return to school or work 1 days after the procedure, unless otherwise instructed by the physician. documented in this encounter Progress Notes * Nathan Hardwick MD - 04/20/2024 12:44 PM EDT [address] [address] OUTPATIENT SURGERY DISCHARGE SUMMARY NOTE Name: Lanny Andrews Location: [facility] Date: 04/20/2024 Time: 12:44 PM Surgery Date: 04/20/2024 Procedure: INSERT TUNNELED CENTRAL VENOUS ACCESS WITH SUBQ PORT Right Surgeon: Nathan Hardwick MD Discharge Diagnosis: port placement After examination of this patient, I have determined she is ready for discharge to home when the patient meets criteria. Discharge instructions were given to the patient. * Nathan Hardwick MD - 04/20/2024 12:41 PM EDT Discharge Date: 04/20/2024 Provider: Dr. Nathan Hardwick If you are experiencing any problems related to your procedure, please contact Interventional Radiology at [phone] during normal business hours: Thursday- Thursday 7:30 am - 4 pm. If a problem occursoutside of normal business hours, please call the hospital rotary saw operator at [phone] and ask for theInterventional Radiologist feed preparation operator. Contact scheduling for Interventional Radiology at [phone] during normal business hours: Thursday-Thursday, 7:30 am - 4 pm. The information below provides you with the instructions and the list of medications you need to betaking following discharge from the hospital. If you have any questions, please ask before leaving.Please carry this letter with you when you see your doctor in the clinic. If you have questions, you can reach us at the numbers above. SPECIAL INSTRUCTIONS Mediport Insertion (Implanted Central Venous Access) A Mediport is a sealed chamber covered by a silicone disc that is surgically placed in a pocket under the skin on the upper chest, just below the collarbone. This chamber connects to a flexible tube that goes into a large vein in the neck. The tip is near the heart. The port provides direct access to the bloodstream and can be used in drawing blood samples and giving intravenous fluids and medications. Some ports allow CT scan injections; these ports are referred to as "Power Ports." The port will be visible only as a small raised area beneath your skin. Home Care If you experience pain or discomfort at the site you may use a cold pack on the site and/or take acetaminophen (Tylenol) or your preferred pain medicine as directed. Avoid contact sports or any activity that may cause blunt force impact to the port area, as it may damage your port. Avoid strenuous activity for 24 to 48 hours after the procedure. Do not lift anything heavier than 10 pounds for 3 days after the procedure. Gradually increase your activity after 24 to 48 hours after the procedure. No dressing changes or wound care are needed at the insertion site. Your wound is closed with sutures on the inside and then sealed on the outside with a special "skin glue" called Dermabond (a surgical glue). Depending on your physician's preference, there may also be "steri strips" applied. It isvery important to let these special bandages fall off on their own. Please do not scrub or pull these bandages off. You may gently wash the area with soap and water. Depending on your physician's preference, there may also be gauze and Tegaderm (clear) bandage overthe Mediport insertion site. You may remove this bandage in 24 hours. You may shower in 24 hours. Gently wash the area and pat it dry. Please DO NOT take a bath, soak in a hot tub, or swim until the wound is completely healed. Your port must be accessed and flushed/heparinized every 30 days if it is not currently being used. When to Call Interventional Radiology Call Interventional Radiology right away if you have any of the following: Fever above 100 degrees Fahrenheit Increased bleeding, redness, swelling, warmth, or discharge at the incision site. Constant or increasing pain, numbness, coldness, or tingling around the incision area. Vomiting or nausea that does not go away If at any time you experience any of the following or feel you are having a medical emergency, [id number] for emergency assistance. Chest Pain Sudden, severe shortness of breath Rapid heart rate Sudden onset of weakness Do not smoke or use tobacco products in any way! If you feel suicidal or homicidal, please call the crisis hotline at 4-092-412-ZTUN (2386) MODERATE SEDATION You may have received medication that made you comfortable/sedated you during your procedure. This is considered moderate sedation. This medication was given to relax you. You may also not remember having the procedure done. It may take up to 24 hours for this medication to be out of your system. Because of this, you should observe the following for the next 24 hours: Do not drink alcohol or take depressant drugs. Do not operate any type of machinery that requires hand-eye coordination. Do not sign any legal papers or documents. Do not make any financial decisions. You should be in the presence of an adult for the remainder of the day. If you are experiencing any problems related to your procedure, you should contact the Interventional Radiology physician unless otherwise directed. Driving: You may resume driving 1 day . Diet: You may resume your current diet as tolerated. Return to work or school: You may return to school or work 1 days after the procedure, unless otherwise instructed by the physician. documented in this encounter H&P Notes * Nathan Hardwick MD - 04/20/2024 11:43 AM EDT HISTORY & PHYSICAL - Interventional Radiology Service [facility]-[address] [address] Name: Lanny Andrews Location: [facility] Date: 04/20/2024 Time: 11:43 AM CHIEF COMPLAINT: port HISTORY OF PRESENT ILLNESS: Lung CA Past Medical History: Diagnosis Date Carpal tunnel syndrome on left surgery COPD (chronic obstructive pulmonary disease) (HCC) Depression GERD (gastroesophageal reflux disease) Lung cancer (HCC) Adenocarcinoma (right lung) 2010; new primary adenocarcinoma (left lung) 2013 Migraine Sleep apnea, obstructive Past Surgical History: Procedure Laterality Date ANESTHESIA FOR RELEASE OF LUNG 05/25/2011 right middle lobectomy 05/25/11; also mediastinoscopy ANESTHESIA FOR RELEASE OF LUNG Left 06/13/2014 wedge resection 06/13/14 ANESTHESIA FOR RELEASE OF LUNG Left 01/03/2020 video-assisted thoracoscopic wedge resection BREAST ENHANCEMENT 2002 CARPAL TUNNEL SURGERY Left EGD, FLEXIBLE, DIAGNOSTIC N/A 01/27/2024 ESOPHAGOGASTRODUODENOSCOPY (EGD), FLEXIBLE, TRANSORAL, DIAGNOSTIC performed by Yousif Granger MDat ENDOSCOPY [facility] EGD, W/ENDOSCOPIC US N/A 04/12/2024 ESOPHAGOGASTRODUODENOSCOPY (EGD), FLEXIBLE, TRANSORAL, ENDOSCOPIC ULTRASOUND performed by Edwina Mclaughlin MD at OR [facility] INJECTION OF EYE DRUG Right 07/05/2021 [...] Right 02/29/2024 #17 Avastin OD, Dr. Grey IR BIOPSY 04/13/2024 LASER SURGERY OF INNER EYE STRANDS Right OTHER (INFORMATION) ACT 112 SIGNED 07/05/21 DR. GREY OTHER (INFORMATION) Right AVASTIN OD CONSENT DR. GREY/MAYLIN EXP. 07/05/22 OTHER (INFORMATION) Bilateral AVASTIN OU CONSENT DR. GREY/MAYLIN EXP. 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 No mold in her home, however, when she removed possessions from storage, they were moldy and had phillip cleaned with bleach. Social Determinants of Health Financial Resource Strain: Low Risk (05/22/2023) Financial Resource Strain Do you have any trouble paying for your medications, or do you think you might in the future? (Adult - for ages 18 years and over): No Does your family have trouble paying for medicine? (Household - for ages 0-17 years): Not on file Food Insecurity: No Food Insecurity (05/22/2023) Food Insecurity Do you need food for this week? (Adult - for ages 18 years and over): No Are you able to get enough food for your family? (Household - for ages 0-17 years): Not on file Does your family need food this week? (Household - for ages 0-17 years): Not on file Do you always have enough food for your family? (Household - for ages 0-17 years): Not on file Transportation Needs: No Transportation Needs (05/22/2023) Transportation Needs Do you have trouble getting a ride to medical visits or work? (Adult - for ages 18 years and over):Never True Does your family have a hard time getting a ride to doctors visits? (Household - for ages 0-17 years): Not on file Has lack of transportation kept you from medical appointments, meetings, work, or from getting things needed for daily living? Check all that apply. (Adult - for ages 18 years and over): Not on file Do you (or your family) have trouble finding or paying for a ride (transportation)? (Household - for ages 0-17 years): Not on file Social Connections: Socially Integrated (05/22/2023) Social Connections How often do you feel lonely or isolated from those around you? (Adult - for ages 18 years and over): Never Housing Stability: Low Risk (05/22/2023) Housing Stability Do you currently live in a care home or have no steady place to sleep at night? (Adult - for ages 18 years and over): No Do you think you are at risk of becoming homeless? (Adult - for ages 18 years and over): No Does your family worry about paying for your home or becoming homeless? (Household - for ages 0-17 years): Not on file Are you homeless or worried that you might be in the future? (Adult - for ages 18 years and over): Not on file Are you (or your family) homeless or worried that you might be in the future? (Household - for ages0-17 years): Not on file Family History Problem Relation Name Age of Onset Thyroid Disorder Mother Pancreatic cancer Mother No Known Problems Father Other (Pituitary tumor) Brother Tee No Known Problems Brother Nabor No Known Problems Brother Oren Diabetes Grandmother (Maternal) Breast Cancer No significant family history Review of patient's allergies indicates: Allergen Reactions Iodinated Contrast Media "itchy, rash and hives" CT Scan Current Facility-Administered Medications Medication Dose Route Frequency Provider Last Rate Last Admin ceFAZolin in dextrose (Ancef) ivpb 2 g 2 g IV Piggyback Once Nathan Hardwick MD isolyte-S pH 7.4 infusion Intravenous Continuous Nathan Hardwick MD 10 mL/hr at 04/20/24 1110 New Bag at 04/20/24 1110 REVIEW OF SYSTEMS: Constitutional: (-) fever chills sweats or weight loss Cardiovascular: (-) negative: no chest pain, dyspnea, syncope, or palpitations Pulmonary: (-) negative: no cough, wheezing, or shortness of breath Abdominal/GI: (-) negative: no pain, heartburn, dysphagia, bleeding, change in bowel habits, nauseaor vomiting OBJECTIVE: BP 136/86 | Pulse 63 | Temp 36 C (96.8 F) (Temporal Artery) | Resp 16 | Ht 1.626 m (5' 4") | Wt75.2 kg (165 lb 11.2 oz) | SpO2 97% | BMI 28.44 kg/m | BSA 1.84 m PHYSICAL EXAM: Constitutional: no acute distress CV: normal rate and rhythm, no murmur, gallops or rub Chest: normal respiratory effort, lungs clear to auscultation and percussion, breath sounds normal Abdomen: normal: soft, bowel sounds normal, no masses, tenderness or organomegaly LABS: CBC Results: PT INR Results: Results for orders placed or performed in visit on 04/04/24 PT INR Result Value Ref Range Prothrombin Time 12.7 11.6 - 15.2 seconds INR 1.0 0.8 - 1.2 BUN Results: Lab Results Component Value Date/Time BUN - [facility] 17 04/04/2024 03:10 PM BUN - [facility] 15 12/18/2023 12:43 PM BUN - [facility] 23 (H) 07/09/2021 10:39 AM Creatinine Results: Lab Results Component Value Date/Time CREATININE - [facility] 0.6 04/04/2024 03:10 PM CREATININE - [facility] 0.6 12/18/2023 12:43 PM CREATININE - [facility] 0.7 07/09/2021 10:39 AM Potassium Results: Lab Results Component Value Date/Time POTASSIUM - [facility] 4.1 04/04/2024 03:10 PM POTASSIUM - [facility] 4.3 12/18/2023 12:43 PM POTASSIUM - [facility] 4.3 07/09/2021 10:39 AM INFORMED CONSENT: Yes PRE-SEDATION ASSESSMENT IMPRESSION/PLAN: Port placement Nathan Hardwick MD documented in this encounter Nursing Notes * Jani Ruiz RN - 04/20/2024 12:09 PM EDT Pt condition was reassessed by Dr. Nathan Hardwick immediately prior to start of moderate sedation and procedure. * Adrian Maravilla RN - 04/20/2024 12:06 PM EDT Patient does not meet criteria for testing. Adrian Maravilla RN 04/20/2024 12:06 PM documented in this encounter OR Notes * OR Surgeon - Nathan Hardwick MD - 04/20/2024 1:16 PM EDT Procedure: chest medical port placement 04/20/24 INDICATION: central intravenous access needed for chemotherapy.] ATTENDING (OPERATING PHYSICIAN): [Mulu] CONSENT: After a detailed discussion of the procedure, risks, benefits and alternative treatment options, informed consent was obtained. TIME OUT: A time out procedure was performed. The patient's identification was verified. Informed consent with agreement of procedure, site and position was obtained. All necessary equipment was available prior to procedure. CONTRAST: No contrast was administered. COMPLICATIONS: None. ANESTHESIA: [Local lidocaine.] [IV Versed.] [IV Fentanyl.] SEDATION TIME: [Start to end: [[id number]]. Qualified nurse sedation observer [DAVID Roldan.] MEDICATIONS: See MAR PROCEDURE DESCRIPTION: The [right] neck and chest were prepped and draped in the usual sterile fashion. After local anesthesia, a small incision was made at the site of venous access in the neck. Using real-time ultrasound guidance, the internal jugular vein was punctured with a micro puncture needle. Digital ultrasound images were acquired and digitally archived. A wire and sheath were used to secure access to the internal jugular vein access using fluoroscopic guidance. [A second incision was made in the upper chest and a pocket was created. The medical port catheter was tunneled from the pocket to the venotomy site. A peel- away sheath was placed through the venotomy over the wire and the catheter was advanced through a peel-away sheath and positioned under fluoroscopic guidance. The catheter was then measured to [21] cm, cut, and attached to a power injectable port.] Once the medical port and catheter were in satisfactory position, the medical port was accessed, had appropriate blood return, and easily flushed and was locked with dilute heparin. [The incision wasthen closed in layers with absorbable sutures and tissue adhesive.] The venotomy site was closed with [absorbable suture and] tissue adhesive. I personally performed the procedure. Findings: Ultrasound shows an anechoic and compressible [right] internal jugular vein. The medical port is inthe upper chest with the catheter tip at the [right atrium] Impression: Successful placement of a chest power injectable medical port. * Operative Report Brief - Nathan Hardwick MD - 04/20/2024 12:40 PM EDT PROCEDURE NOTE - Interventional Radiology [facility]-[address] [address] Name: Lanny Andrews Location: [place] [facility] Date: 04/20/2024 Time: 12:40 PM PROCEDURE: port placement INBOUND CUSTOMER SERVICE REPRESENTATIVE: Dr. Nathan Hardwick ASSISTANTS: none ANESTHESIA: conscious sedation COMPLICATIONS: none SPECIMEN: none ESTIMATED BLOOD LOSS: negligible FINDINGS: right IJ patent documented in this encounter Miscellaneous Notes * Sedation Note - Nathan Hardwick MD - 04/20/2024 12:41 PM EDT Post Sedation Evaluation: Cardiovascular status: acceptable Level of consciousness: awake and alert Airway patency: patent Distress - NAD Hydration status - well hydrated Nausea/vomiting - not present Pain Evaluation Pain Assessment Flowsheet Row Most Recent Value Pain Assessment Scale [facility] Scale 0-10 Pain Score 0 (no pain) Vital Signs: Temp: 36.3 C (97.3 F) (04/20 1238) BP: 121/94 (04/20 1238) Pulse: 63 (04/20 1238) Resp: 16 (04/20 1238) SpO2: 92 % (04/20 1238) I have personally examined the patient, prescribed the necessary medications as charted, and certify that Lanny Andrews is recovered for safe discharge from my face to face care. * Pre-Sedation Assessment - Nathan Hardwick MD - 04/20/2024 11:55 AM EDT PRE-SEDATION ASSESSMENT PRE-SEDATION ASSESSMENT: Port Placement Level of sedation planned: Minimal Patient's allergies reviewed: Yes H&P Review / Interval Note Documentation: There is no H&P on file. Difficulty with sedation / anesthesia: No Sleep apnea: No History of snoring: No History of difficult intubation: No Decreased ROM neck flexion/extension: No Tracheal deviation: No Decreased ability to open mouth / TMJ: No Loose teeth / dentures / partial: No Congenital deformities / abnormalities: No Dysphagia: No Mallampati Classification: II - soft palate, uvula, fauces visible Chest: Clear Heart: Regular Rhythm Adequate Vascular Access: Yes ASA Risk Stratification (Select One): ASA 2 - Mild systemic disease, no functional limitations The patient was identified and the procedure verified: Yes The patient was reevaluated immediately prior to the sedation: 04/20/2024 11:56 AM documented in this encounter Plan of Treatment Upcoming Encounters Date Type Department Care Team (Late st Contact Info) Description 04/26/2024 8:30 AM EDT Office Visit Ophthalmology, [facility] 132 [place] [address] Anthony Grey DO 132 [facility] [place] [address] 05/12/2024 9:30 AM EDT Office Visit General Surgery, [address] [place] [address] Thiago Praker MD [address] [place], [place] [phone] 06/15/2024 8:20 AM EST Office Visit Pulmonary Medicine, [facility] 132 [facility] [place] [address] Sav Olivia MD [address] [place] [facility] [place] [address] 03/10/2025 10:00 AM EDT Office Visit Sleep Disorders [address] [place] [phone] Gutierrez Margie Bergeron, DO [address] [place] [address] Health Maintenance Due Date Last Done Comments [...] this encounter Medical Devices Implanted Type Area Medical Data Entry Clerk Device Identifier Shelf Expiration Date Model / Serial / Lot Port Implant [id number] Poly Cath - [id number] Implanted:Qty : 1 on 04/20/2024 by Nathan Hardwick MD at OR [facility] Right: Chest CR BARD : PERIPHERAL VASCULAR [id number] 06/25/2025 [id number] / / [id number] documented as of this encounter Procedures Procedure Name Priority Date/Time Associated Diagnosis Comments IR INTERVENTIONAL RADIOLOGY PROCEDURE IN OR Routine 04/20/2024 12:28 PM EDT documented in this encounter Results * IR INTERVENTIONAL RADIOLOGY PROCEDURE IN OR (04/20/2024 12:28 PM EDT) 04/20/2024 4:06 PM EDT Impressions [facility] - 04/20/2024 4:04 PM EDT IMPRESSION: Successful placement of a chest power injectable medical port. Narrative [facility] - 04/20/2024 4:04 PM EDT PROCEDURE: chest medical port placement 04/20/24 INDICATION: central intravenous access needed for chemotherapy. ATTENDING (OPERATING PHYSICIAN): Mulu CONSENT: After a detailed discussion of the procedure, risks, benefits and alternative treatment options, informed consent was obtained. TIME OUT: A time out procedure was performed. The patient's identification was verified. Informed consent with agreement of procedure, site and position was obtained. All necessary equipment was available prior to procedure. CONTRAST: No contrast was administered. COMPLICATIONS: None. ANESTHESIA: Local lidocaine. IV Versed. IV Fentanyl. SEDATION TIME: Start to end: 6125-0930. Qualified nurse sedation observer DAVID Wood. MEDICATIONS: See [facility] PROCEDURE DESCRIPTION: The right neck and chest were prepped and draped in the usual sterile fashion. After local anesthesia, a small incision was made at the site of venous access in the neck. Using real-time ultrasound guidance, the internal jugular vein was punctured with a micro puncture needle. Digital ultrasound images were acquired and digitally archived. A wire and sheath were used to secure access to the internal jugular vein access using fluoroscopic guidance. A second incision was made in the upper chest and a pocket was created. The medical port catheter was tunneled from the pocket to the venotomy site. A peel-away sheath was placed through the venotomy over the wire and the catheter was advanced through a peel-away sheath and positioned under fluoroscopic guidance. The catheter was then measured to 21 cm, cut, and attached to a power injectable port. Once the medical port and catheter were in satisfactory position, the medical port was accessed, had appropriate blood return, and easily flushed and was locked with dilute heparin. The incision was then closed in layers with absorbable sutures and tissue adhesive. The venotomy site was closed with absorbable suture and tissue adhesive. I personally performed the procedure. FINDINGS: Ultrasound shows an anechoic and compressible right internal jugular vein. The medical port is in the upper chest with the catheter tip at the right atrium Procedure Note Nathan Hardwick MD - 04/20/2024 PROCEDURE: chest medical port placement 04/20/24 INDICATION: central intravenous access needed for chemotherapy. ATTENDING (OPERATING PHYSICIAN): Mulu CONSENT: After a detailed discussion of the procedure, risks, benefits andalternative treatment options, informed consent was obtained. TIME OUT: A time out procedure was performed. The patient's identificationwas verified. Informed consent with agreement of procedure, site andposition was obtained. All necessary equipment was available prior toprocedure. CONTRAST: No contrast was administered. COMPLICATIONS: None. ANESTHESIA: Local lidocaine. IV Versed. IV Fentanyl. SEDATION TIME: Start to end: 5723-5767. Qualified nurse sedation DAVID Armstrnog. MEDICATIONS: See [facility] PROCEDURE DESCRIPTION: The right neck and chest were prepped and draped inthe usual sterile fashion. After local anesthesia, a small incision wasmade at the site of venous access in the neck. Using real-timeultrasound guidance, the internal jugular vein was punctured with a micropuncture needle. Digital ultrasound images were acquired and digitallyarchived. A wire and sheath were used to secure access to the internaljugular vein access using fluoroscopic guidance. A second incision was made in the upper chest and a pocket was created.The medical port catheter was tunneled from the pocket to the venotomysite. A peel-away sheath was placed through the venotomy over the wire andthe catheter was advanced through a peel-away sheath and positioned underfluoroscopic guidance. The catheter was then measured to 21 cm, cut, andattached to a power injectable port. Once the medical port and catheter were in satisfactory position, themedical port was accessed, had appropriate blood return, and easilyflushed and was locked with dilute heparin. The incision was then closedin layers with absorbable sutures and tissue adhesive. The venotomy sitewas closed with absorbable suture and tissue adhesive. I personally performed the procedure. FINDINGS: Ultrasound shows an anechoic and compressible right internal jugular vein.The medical port is in the upper chest with the catheter tip at the rightatrium IMPRESSION IMPRESSION: Successful placement of a chest power injectable medical port. Nathan GALEAS [facility] documented in this encounter Administered Medications Inactive Administered Medications - up to 3 most recent administrations Medication Order MAR Action Action Date Dose Rate Site ceFAZolin in dextrose (Ancef) ivpb 2 g 2 g, IV Piggyback, ONCE, 1 dose, On Thu04/20/24 at 1215 New Bag 04/20/2024 12:12 PM EDT 2 g 1 00 mL/hr isolyte-S pH 7.4 infusion Intravenous, at 10 mL/hr, Plasma-LYTE 148, isolyte-S, and isolyte-S pH 7.4 are considered equivalent - including for MAR barcode scanning., CONTINUOUS, Starting on Thu04/20/24 at 1145, Until Thu04/20/24 at 1716 New Bag 04/20/2024 11:10 AM EDT 10 mL/hr documented in this encounter Active and Recently Administered Medications Times are shown in EDT. Scheduled Medication Order 04/18/2024 04/19/2024 04/20/2024 ceFAZolin in dextrose (Ancef) ivpb 2 g (COMPLETED) 2 g, IV Piggyback, ONCE, 1 dose, On Thu04/20/24 at 1215 1212 (New Bag - Prov ider: Saul Wood RN) Continuous Medication Order 04/18/2024 04/19/2024 04/20/2024 isolyte-S pH 7.4 infusion Intravenous, at 10 mL/hr, Plasma-LYTE 148, isolyte-S, and isolyte-S pH 7.4 are considered equivalent - including for MAR barcode scanning., CONTINUOUS, Starting on Thu04/20/24 at 1145, Until Thu04/20/24 at 1716 1110 (New Bag - Prov ider: Leann Stearns RN) PRN Medication Order 04/18/2024 04/19/2024 04/20/2024 buffered lidocaine 1 % inj (CANCELED) ONCE PRN INTRA PROCEDURE, Starting on Thu04/20/24 at 1223, Until Thu04/20/24 at 1233, Intra-Op 1223 (Given - Provid er: Nathan Hardwick MD) fentaNYL (PF) inj (CANCELED) ONCE PRN INTRA PROCEDURE, Starting on Thu04/20/24 at 1211, Until Thu04/20/24 at 1233, Intra-Op 1211 (Given - Provid er: Saul Wood RN)1217 (Given - Provider: Saul Wood RN) hEParin 100 UNIT/ML Lock Flush inj (CANCELED) ONCE PRN INTRA PROCEDURE, Starting on Thu04/20/24 at 1223, Until Thu04/20/24 at 1233, Intra-Op 1223 (Given - Provid er: Nathan Hardwick MD) midazolam (Versed) 2 MG/2ML inj (CANCELED) ONCE PRN INTRA PROCEDURE, Starting on Thu04/20/24 at 1211, Until Thu04/20/24 at 1233, Intra-Op 1211 (Given - Provid er: Saul Wood RN) documented in this encounter Care Teams Aluminum Can Collector Relationship Specialty Start Date End Date Richard Marshall DO [address] [place] [address] PCP - General Family Medicine 08/26/22 documented as of this encounter
--- OUTSIDE RECORDS SUMMARY | 2024-08-11 03:44 | External Medical Summary | Summary of Care ---
Author Name Unknown Organization [facility] Address [address] [facility] [place] [address] Phone [phone] Care Team Providers Care Dog Behaviorist Name Role Phone Richard Marshall DO Primary Care Provider [phone] Encounter Details Date Type Department Care Team (Late st Contact Info) Description 04/07/2024 Telephone Hematology/Oncology Treatment, [facility] [address] [facility] [place] [address] Nicole Vinson MD 400 [place] [phone] Allergies Active Allergy Reactions Criticality Noted Date Comments Iodinated Contrast Media 07/05/2021 "itchy, rash and hives" CT Scan documented as of this encounter (statuses as of 04/07/2024) Medications Medication Sig Dispensed Refills Start Date End Date Status Vitamin D (Cholecalciferol) 50 MCG (1999) Oral Capsule Take by mouth at bedtime. Active Ferrous Sulfate 325 (65 Fe) MG Oral Tablet (Feosol) Take 1 Tablet by mouth at bedtime. Active Lidocaine 5 % External Patch (Lidoderm) Place 1 Patch topically on the skin daily. 12 hrs on 12 hrs off, as needed Active Stiolto Respimat 2.5-2.5 MCG/ACT Inhalation Aerosol Solution (Tiotropium [place]-Olodaterol )Indications:COPD, severity to be determined (HCC) Inhale [...] for Anxiety. 15 Tablet 1 12/29/2022 Active Additional Information Patient not taking.Reported on 01/18/2024 DULoxetine HCl 30 MG Oral Capsule Delayed Release Particles (Cymbalta) Take 1 Capsule by mouth in the morning. 90 Capsule 08/14/2023 Active Additional Information Patient not taking.Reported on 03/03/2024 traZODone HCl 50 MG Oral Tablet (Desyrel)Indicatio [...] for Pain, Moderate. 90 Tablet 04/04/2024 Active Hospital, Clinic, or Other Facility Administered Medication Ordered Dose Route Frequency Start Date End Date Status bevaCIZumab (Avastin) inj 1.25 mgIndications:Radiation retinopathy, subsequent encounter 1.25 mg IZ PRN 10/08/2023 10/07/2024 Active ROPivacaine (Naropin) inj 1.5 mgIndications:Radiation retinopathy, subsequent encounter 1.5 mg IJ PRN 10/08/2023 10/07/2024 Active documented as of this encounter (statuses as of 04/07/2024) Active Problems Problem Noted Date Diagnosed Date COPD, group B, by GOLD 2017 classification 04/04 Overview: Per COPD GOLD Classification Dermatillomania in adult 03/03/2023 Major depressive disorder, recurrent episode, mo derate 10/28/2021 KRYSTA (generalized anxiety disorder) 10/28/2021 History of tobacco abuse 07/09/2021 GERD (gastroesophageal reflux disease) Mood disorder 07/09/2021 documented as of this encounter (statuses as of 04/07/2024) Resolved Problems Problem Noted Date Diagnosed Date Resolved Date COPD, group A, by GOLD 2017 classification 07/07/2022 04/07/2024 Overview: Per COPD GOLD Classification COPD, severity to be determined 07/09/2021 07/10/2022 Overview: Per COPD GOLD Classification documented as of this encounter (statuses as of 04/07/2024) Immunizations Name Administration Dates Next Due Covid-19 [...] Telephone Encounter - Nicole Vinson MD - 04/07/2024 3:31 PM EDT Called pt to discuss the lab test results from 04/04/2024. Also instructed her to have the EGD with EUS and biopsy as scheduled on 04/12 and to undergo the bone biopsy (iliac crest) on 04/13/2024. Will follow up and update the pt as we get the pathology results Pt informed me that she has canceled her [facility] appt for today. Pain still + but better controlled with percocet. documented in this encounter Plan of Treatment Upcoming Encounters Date Type Department Care Team (Latest Contact Info) Description 4 2:52 PM EDT Hospital Encounter OR [facility], Operating Room, [address] [place] [phone] Edwina Mclaughlin MD [address] [place] [address] 4 2:52 PM EDT - 4 3:30 PM EDT Surgery OR [facility], Operating Room, [address] [place] [address] Edwina Mclaughlin MD [address] [place] [address] ESOPHAGOGASTRODUODENOSCOPY (EGD), FLEXIBLE, TRANSORAL, ENDOSCOPIC ULTRASOUND 4 9:00 AM EDT Hospital Encounter OR [facility], Operating Room, [address] [place] [address] Gl, In And Out Surgery [address] [place] [address] 4 9:00 AM EDT Appointment Radiology, [facility] [address] [place] [address] 4 9:00 AM EDT - 4 10:00 AM EDT Surgery OR [facility], Operating Room, [address] [place] [address] Gl, In And Out Surgery [address] [place] [address] PRE / POST CARE 4 2:30 PM EDT [facility] [address] [place] [phone] Nicole [facility]inson [facility] [phone] 4 8:30 AM EDT Office Visit Ophthalmology, [facility] 132 [facility] [place] [address] Anthony Grey, DO 132 [facility] [place] [address] 4 9:30 AM EDT Office Visit General Surgery, [facility] 132 [place] [address] Thiago Parker MD [address] [place] [address] 4 8:20 AM EST Office Visit Pulmonary Medicine, [facility] 132 [facility] [place] [address] Sav Olivia MD [address] [facility] [address] 5 10:00 AM EDT Office Visit Sleep Disorders Ctr [facility] 132 [facility] [place] [phone] Margie Gutierrez, DO 132 [facility] [place] [address] Scheduled Procedures Name Priority Associated Diagnoses Date/Ti me ESOPHAGOGASTRODUODENOSCOPY ( EGD), FLEXIBLE, TRANSORAL, ENDOSCOPIC ULTRASOUND Abnormal finding on imaging 04/12/2024 2:52 PM EDT PRE / POST CARE Lung cancer metastatic to bone (HCC) 04/13/2024 9:00 AM EDT Health Maintenance Due Date Last [...] ASSESSMENT COMPLETED IN PAST YEAR FOR COPD 01/26/2025 01/27/2024 Lipid Panel 10/09/2026 10/09/2021, 07/09/2021 Diabetes Screening [...] filedocumented as of this encounter Care Teams Dog Behaviorist Relationship Specialty Start Date End Date Richard Marshall DO [address] [place] [address] PCP - General Family Medicine 08/26/22 documented as of this encounter
--- OUTSIDE RECORDS SUMMARY | 2024-08-11 03:44 | External Medical Summary | Summary of Care ---
Author Name Unknown Organization [facility] Address [address] [facility] [place] [address] Phone [phone] Care Team Providers Care Press Operator Carbon Blocks Name Role Phone Richard Marshall DO Primary Care Provider [phone] Reason for Visit * Reason Onset Date Comments Test Results 04/13/2024 GI endo with lym ph node bx Encounter Details Date Type Department Care Team (Late st Contact Info) Description 04/13/2024 Telephone Pulmonary Medicine, [facility] 132 [facility] [place] [address] Sav Olivia MD [address] [facility] [place] [address] Test Results (GI endo with lymph node bx) Allergies Active Allergy Reactions Criticality Noted Date Comments Iodinated Contrast Media 07/05/2021 "itchy, rash and hives" CT Scan documented as of this encounter (statuses as of 04/13/2024) Medications Medication Sig Dispensed Refills Start Date End Date Status Vitamin D (Cholecalciferol) 50 MCG (1999) Oral Capsule Take by mouth at bedtime. Suspended Ferrous Sulfate 325 (65 Fe) MG Oral Tablet (Feosol) Take 1 Tablet by mouth at bedtime. Suspended Stiolto Respimat 2.5-2.5 MCG/ACT Inhalation Aerosol Solution (Tiotropium [place]-Olodatero l)Indications:KETTLE CLEANER D, severity to be determined (HCC) Inhale 2 Puffs by mouth daily. 12 g 3 07/24/2021 Suspended Additional Information Premarin 0.625 MG/GM Vaginal Cream (Estrogens, Conjugated) Administer into the vagina at bedtime . As directed. 42.5 g 5 10/07/2021 Suspended Additional Information Patient not taking.Reported on 01/27/2024 Atorvastatin Calcium 40 MG Oral Tablet (Lipitor) TAKE 1 TABLET DAILY 90 Tablet 3 12/30/2021 Suspended Additional Information CPAP every night at bedtime . Suspended Premarin 0.625 MG Oral Tablet Take 1 Tablet by mouth at bedtime. 10/16/2022 Suspended clonazePAM 0.5 MG Oral Tablet (KlonoPIN) Take 1 Tablet by mouth daily as needed for Anxiety. 15 Tablet 1 12/29/2022 Suspended Additional Information DULoxetine HCl 30 MG Oral Capsule Delayed Release Particles (Cymbalta) Take 1 Capsule by mouth in the morning. 90 Capsule 08/14/2023 Suspended Additional Information traZODone HCl 50 MG Oral Tablet (Desyrel)Indicati ons:Primary insomnia Take 2 Tablets by mouth at bedtime. 180 Tablet 08/14/2023 Suspended Additional Information Albuterol Sulfate 108 (90 Base) MCG/ACT Inhalation Aerosol Powder Breath Activated Inhale by mouth every 4 hours as needed. Suspended Ibuprofen 200 MG Oral Tablet (Motrin) Take 4 Tablets by mouth every 8 hours as needed. Suspended Pantoprazole Sodium 40 MG Oral Tablet Delayed Release (Protonix) Take 1 Tablet by mouth 2 times a day 30 minutes before morning and evening meals. 60 Tablet 3 01/27/2024 Suspended Additional Information oxyCODONE HCl 5 MG Oral Capsule (Oxy IR) Take 1 Capsule by mouth every 6 hours as needed for Pain, Severe. Suspended oxyCODONE-Acetami nophen 5-325 MG Oral Tablet (Percocet)Indicat ions:Lung cancer metastatic to bone (HCC) Take 1 Tablet by mouth every 6 hours as needed for Pain, Moderate. 90 Tablet 04/04/2024 Suspended Additional Information documented as of this encounter (statuses as of 04/13/2024) Active Problems Problem Noted Date Diagnosed Date COPD, group B, by GOLD 2017 classification 04/04 Overview: Per COPD GOLD Classification Dermatillomania in adult 03/03/2023 Major depressive disorder, recurrent episode, mo derate 10/28/2021 KRYSTA (generalized anxiety disorder) 10/28/2021 History of tobacco abuse 07/09/2021 GERD (gastroesophageal reflux disease) Mood disorder 07/09/2021 documented as of this encounter (statuses as of 04/13/2024) Resolved Problems Problem Noted Date Diagnosed Date Resolved Date COPD, group A, by GOLD 2017 classification 07/07/2022 04/07/2024 Overview: Per COPD GOLD Classification COPD, severity to be determined 07/09/2021 07/10/2022 Overview: Per COPD GOLD Classification documented as of this encounter (statuses as of 04/13/2024) Immunizations Name Administration Dates Next Due Covid-19 [...] encounter Miscellaneous Notes * Telephone Encounter - Sandy Chavez LPN - 04/13/2024 9:31 AM EDT ----- Message from Sav Olivia MD sent at 04/12/2024 5:08 PM EDT ----- Patient underwent GI endoscopy with ultrasound for lower paraesophageal lymph node biopsy on 04/12/2024. Path reports are pending. Chart note - One malignant-appearing lymph node was visualized in the lower paraesophageal mediastinum (level 8L). Fine needle biopsy performed. documented in this encounter Plan of Treatment Upcoming Encounters Date Type Department Care Team (Late st Contact Info) Description 04/18/2024 2:30 PM EDT Office Visit Hematology/Oncology [facility] [address] [facility] [employer], [place] [address] Nicole Vinson MD 400 [place] [address] 04/26/2024 8:30 AM EDT Office Visit Ophthalmology, [facility] 132 [facility] [address] Anthony Grey, DO 132 [facility] [place] [address] 05/12/2024 9:30 AM EDT Office Visit General Surgery, [facility] [address] [facility] [address] Thiago Parker MD [address] [place] [address] 06/15/2024 8:20 AM EST Office Visit Pulmonary Medicine, [facility] 132 [facility] [place] [address] Sav Olivia MD [address] [place] [address] 03/10/2025 10:00 AM EDT Office Visit Sleep Disorders Ctr [address] [place] [phone] Margie Gutierrez, 132 [facility] [place] [address] Scheduled Procedures Name Priority Associated Diagnoses Date/Ti me PRE / POST CARE Lung cancer metastatic [...] filedocumented as of this encounter Care Teams Press Operator Carbon Blocks Relationship Specialty Start Date End Date Richard Marshall DO [address] [place] [address] PCP - General Family Medicine 08/26/22 documented as of this encounter
--- OUTSIDE RECORDS SUMMARY | 2024-08-11 03:44 | External Medical Summary | Summary of Care ---
Author Name Unknown Organization [facility] Address [address] [facility] [place] [address] Phone [phone] Care Team Providers Care Blood Bank Manager Name Role Phone Richard Marshall DO Primary Care Provider [phone] Reason for Visit * Reason Onset Date Comments Medication Refill 04/13/2024 Encounter Details Date Type Department Care Team (Late st Contact Info) Description 04/13/2024 Refill Psychiatry Sonja Ahuja [address] [place] [phone] Terri Perdomo CRNP [address] [place] [address] Primary insomnia Allergies Active Allergy Reactions Criticality Noted Date [...] Respimat 2.5-2.5 MCG/ACT Inhalation Aerosol Solution (Tiotropium [place]-Olodaterol )Indications:COPD, severity to be determined (HCC) Inhale [...] encounter Miscellaneous Notes * Telephone Encounter - Terri Perdomo CRNP - 04/13/2024 8:50 AM EDTRefused Prescriptions: Disp Refills traZODone HCl 50 MG Oral Tablet (Desyrel) 180 Ta*0 Sig: Take 2 Tablets by mouth at bedtime. Refused By: TERRI PERDOMO Reason for Refusal: Appt. Required, please call patient DULoxetine HCl 30 MG Oral Capsule Delayed *90 Cap*0 Sig: Take 1 Capsule by mouth in the morning. Refused By: TERRI PERDOMO Reason for Refusal: Appt. Required, please call patient * Telephone Encounter - Kathrine Maldonado LPN - 04/13/2024 7:56 AM EDT Pharmacy requesting refill on Trazadone. Medication was last filled on 08/14/2023 with 0 refills. Patient last seen on 01/30/2023 with return appointment scheduled for needs appt. Patient had 1 cancelled appointments and 0 NO SHOW appointments. documented in this encounter Plan of Treatment Upcoming Encounters Date Type Department Care Team (Late st Contact Info) Description 04/18/2024 2:30 PM EDT Office Visit Hematology/Oncology [facility] [address] [place] [phone] Nicole Vinson MD [address] [place] [phone] 04/26/2024 8:30 AM EDT Office Visit Ophthalmology, [facility] 132 [facility] [place] [address] Anthony Grey, 132 [facility] [place] [address] 05/12/2024 9:30 AM EDT Office Visit General Surgery, [facility] 132 [facility] [place] [address] Thiago Parker MD [address] [place] [address] 06/15/2024 8:20 AM EST Office Visit Pulmonary Medicine, [facility] [address] [place] [address] Sav Olivia MD [address] [place] [address] 03/10/2025 10:00 AM EDT Office Visit Sleep Disorders Ctr [facility] [address] [place] [phone] Margie Gutierrez DO [address] [place] [address] Scheduled Procedures Name Priority Associated Diagnoses Date/Ti [...] as of this encounter Visit Diagnoses Diagnosis Primary insomnia Persistent disorder of initiating or maintaining sleep documented in this encounter Care Teams Blood Bank Manager Relationship Specialty Start Date End Date Richard Marshall DO [address] [place], [place] [phone] PCP - General Family Medicine 08/26/22 documented as of this encounter
--- OUTSIDE RECORDS SUMMARY | 2024-08-11 03:44 | External Medical Summary | Summary of Care ---
Author Name Unknown Organization [facility] Address [address] [place] [address] Phone [phone] Care Team Providers Care Systems Software Specialist Name Role Phone Richard Marshall DO Primary Care Provider + [phone] Reason for Visit * Reason Onset Date Comments Appointment 04/08/2024 Encounter Details Date Type Department Care Team (Late st Contact Info) Description 04/08/2024 Telephone Radiation Oncology, [place] [address], [place] [id number] Carmella Galindo MD [address] [place] [address] Appointment Allergies Active Allergy Reactions Criticality Noted Date Comments Iodinated Contrast Media 07/05/2021 "itchy, rash and hives" CT Scan documented as of this encounter (statuses as of 04/08/2024) Medications Medication Sig Dispensed Refills Start Date [...] Respimat 2.5-2.5 MCG/ACT Inhalation Aerosol Solution (Tiotropium [place]-Olodaterol )Indications:COPD, severity to be determined (HCC) Inhale [...] as of this encounter (statuses as of 04/08/2024) Active Problems Problem Noted Date Diagnosed Date COPD, group B, by GOLD 2017 classification 04/04 Overview: Per COPD GOLD Classification Dermatillomania in adult 03/03/2023 Major depressive disorder, recurrent episode, mo derate 10/28/2021 KRYSTA (generalized anxiety disorder) 10/28/2021 History of tobacco abuse 07/09/2021 GERD (gastroesophageal reflux disease) Mood disorder 07/09/2021 documented as of this encounter (statuses as of 04/08/2024) Resolved Problems Problem Noted Date Diagnosed Date Resolved Date COPD, group A, by GOLD 2017 classification 07/07/2022 04/07/2024 Overview: Per COPD GOLD Classification COPD, severity to be determined 07/09/2021 07/10/2022 Overview: Per COPD GOLD Classification documented as of this encounter (statuses as of 04/08/2024) Immunizations Name Administration Dates Next Due Covid-19 [...] encounter Miscellaneous Notes * Telephone Encounter - Bernice Cook OSA - 04/08/2024 1:43 PM EDT Called patient to reschedule cx appt from 04.[address] Galindo. Patient advised she would call backwhen she is ready to schedule. 04/08 AP documented in this encounter Plan of Treatment Upcoming Encounters Date Type Department Care Team (Latest Contact Info) Description 4 2:52 PM EDT Hospital Encounter OR [facility], Operating Room, [facility] Floor [address] [phone] Edwina Mclaughlin MD [address] [address] 4 2:52 PM EDT - 4 3:30 PM EDT Surgery OR [facility], Operating Room, [address] [phone] Edwina Mclaughlin MD [address] [address] ESOPHAGOGASTRODUODENOSCOPY (EGD), FLEXIBLE, TRANSORAL, ENDOSCOPIC ULTRASOUND 4 9:00 AM EDT Hospital Encounter OR GL, Operating Room, [facility] - [address] [place] [address] [address] [address] [facility], In And Out Surgery [address] [address] 4 9:00 AM EDT Appointment Radiology, [facility] [address] [address] 4 9:00 AM EDT - 4 10:00 AM EDT Surgery OR GL, Operating Room, [address] [address] [facility], In And Out Surgery [address] [address] PRE / POST CARE 4 2:30 PM EDT Office Visit Hematology/Onco logy Karla Regan [place] [address] [place] [phone] Nicole Vinson MD [address] [address] 4 8:30 AM EDT Office Visit Ophthalmology, [facility] [address] [place] [address] Junior Greydillonelaine Olivo, DO [address] [place] [address] 4 9:30 AM EDT Office Visit General Surgery, [facility] [address] [place] [address] Thiago Parker MD [address] [place] [address] 4 8:20 AM EST Office Visit Pulmonary Medicine, [facility] [address] [place] [address] Sav Olivia MD [address] [place] [address] 5 10:00 AM EDT Office Visit [facility] [address] [place] [phone] Margie Gutierrez, [address] [place] [address] Scheduled Procedures Name Priority Associated Diagnoses Date/Ti [...] filedocumented as of this encounter Care Teams Systems Software Specialist Relationship Specialty Start Date End Date Richard Marshall DO [address] [place] [id number] PCP - General Family Medicine 08/26/22 documented as of this encounter
--- OUTSIDE RECORDS SUMMARY | 2024-08-11 03:44 | External Medical Summary | Summary of Care ---
Author Name Unknown Organization [facility] Address [address] [facility] [place] [address] Phone [phone] Care Team Providers Care Community Services Officer Name Role Phone Richard Marshall DO Primary Care Provider + [phone] Reason for Visit * Auth/Cert Specialty Diagnoses / Procedures Referred By Constance t Referred To Contact Diagnoses Abnormal finding on imaging Abnormal finding on imaging [R93.89] Procedures EGD, W/ENDOSCOPIC US ESOPHAGOGASTRODUODENOSCOPY (EGD), FLEXIBLE, TRANSORAL, ENDOSCOPIC ULTRASOUND Edwina Mclaughlin MD [address] [place] [address] Or [facility] [address] [place] [phone] Referral ID Status Reason Start Date Expiration Date Visits Re quested Visits Authorized [id number] Encounter Details Date Type Department Care Team (Latest Contact Info) Description 04/12/2024 1:37 PM EDT - 04/12/2024 4:12 PM EDT Hospital Encounter OR [facility], Operating Room, [facility] - 4th Floor [address] [place] [phone] Edwina Mclaughlin MD [address] [place] [id number] Upper Endoscopic US Discharge Disposition: Home - Self Care Allergies [...] Respimat 2.5-2.5 MCG/ACT Inhalation Aerosol Solution (Tiotropium [place]-Olodaterol )Indications:COPD, severity to be determined (HCC) Inhale [...] Sign Reading Time Taken Comments Blood Pressure 156/99 04/12/2024 4:09 PM EDT Pulse 67 04/12/2024 4:09 PM EDT Temperature 36.4 C (97.5 F) 04/12/2024 4:09 PM ED T Respiratory Rate 16 04/12/2024 4:09 PM EDT Oxygen Saturation 96% 04/12/2024 4:09 PM EDT Inhaled Oxygen Concentration - - Weight 74.8 kg (165 lb) 04/12/2024 1:42 PM EDT Height 162.6 cm (5' 4") 04/12/2024 1:42 PM EDT Body Mass Index 28.32 04/12/2024 1:42 PM EDT documented in this encounter H&P Notes * Edwina Mclaughlin MD - 04/12/2024 1:46 PM EDT Endoscopy Pre-Procedure Assessment Name: Lanny Andrews Date: 04/12/2024 Time: 1:46 PM Procedure(s): Endoscopic Ultrasound; with Indication(s) of FNA/FNB of lesions/tissue within or outside the GI tract and evaluation of abnormalities on radiologic study Endoscopy Pre-Procedure Assessment: Prior to the procedure, the patient was identified. The patient's history, medications and allergies were reviewed as per the Anesthesia Assessment. The patient is competent. The risks and benefits of the proposed procedure and the planned sedation were discussed with the patient. All questions were answered and informed consent for the procedure was obtained. BP 137/100 | Pulse 64 | Temp 36.2 C (97.2 F) (Temporal Artery) | Resp 18 | Ht 1.626 m (5' 4") |Wt 74.8 kg (165 lb) | SpO2 98% | BMI 28.32 kg/m | BSA 1.84 m Review of patient's allergies indicates: Allergen Reactions Iodinated Contrast Media "itchy, rash and hives" CT Scan Prior to Admission medications Medication Sig Last Dose Discont. oxyCODONE-Acetaminophen 5-325 MG Oral Tablet (Percocet) Take 1 Tablet by mouth every 6 hours as needed for Pain, Moderate. 04/12/2024 oxyCODONE HCl 5 MG Oral Capsule (Oxy IR) Take 1 Capsule by mouth every 6 hours as needed for Pain, Severe. 04/11/2024 Pantoprazole Sodium 40 MG Oral Tablet Delayed Release (Protonix) Take 1 Tablet by mouth 2 times a day 30 minutes before morning and evening meals. 04/12/2024 DULoxetine HCl 30 MG Oral Capsule Delayed Release Particles (Cymbalta) Take 1 Capsule by mouth in the morning. 04/11/2024 traZODone HCl 50 MG Oral Tablet (Desyrel) Take 2 Tablets by mouth at bedtime. Premarin 0.625 MG Oral Tablet Take 1 Tablet by mouth at bedtime. 04/11/2024 CPAP every night at bedtime . 04/11/2024 Atorvastatin Calcium 40 MG Oral Tablet (Lipitor) TAKE 1 TABLET DAILY 04/12/2024 Stiolto Respimat 2.5-2.5 MCG/ACT Inhalation Aerosol Solution (Tiotropium [place]-Olodaterol) Inhale2 Puffs by mouth daily. Ferrous Sulfate 325 (65 Fe) MG Oral Tablet (Feosol) Take 1 Tablet by mouth at bedtime. 04/11/2024 Vitamin D (Cholecalciferol) 50 MCG (2000 UT) Oral Capsule Take by mouth at bedtime. 04/11/2024 Albuterol Sulfate 108 (90 Base) MCG/ACT Inhalation Aerosol Powder Breath Activated Inhale by mouth every 4 hours as needed. Patient not taking: Reported on 01/18/2024 Ibuprofen 200 MG Oral Tablet (Motrin) Take 4 Tablets by mouth every 8 hours as needed. Over 30 Days clonazePAM 0.5 MG Oral Tablet (KlonoPIN) Take 1 Tablet by mouth daily as needed for Anxiety. Patient not taking: Reported on 01/18/2024 Over 30 Days Premarin 0.625 MG/GM Vaginal Cream (Estrogens, Conjugated) Administer into the vagina at bedtime . As directed. Patient not taking: Reported on 01/27/2024 Lidocaine 5 % External Patch (Lidoderm) Place 1 Patch topically on the skin daily. 12 hrs on 12 hrsoff, as needed Patient not taking: Reported on 01/18/2024 Physical Exam: Mental Status Examination: alert and oriented. Airway Examination: normal oropharyngeal airway and neck mobility. Respiratory Examination: clear to auscultation. CV Examination: Regular rate and rythm, no murmurs. ASA Grade: III - A patient with severe systemic disease. After reviewing the risks and benefits, the patient was deemed in satisfactory condition to undergothe procedure. The anesthesia plan was to use sedation. Patient was explained in detail regarding risks, benefits, limitations and alternatives of the above endoscopic procedure. Risks of intravenous sedation used for procedure were also explained. Risks include, but not limited to perforation, bleeding, infection, respiratory distress, cardiac arrest and . Risk of acute pancreatitis and necrosis if ERCP is done. Patient is also aware about the possibility of missed lesion. Patient's questions were answered. The patient verbalized understandingthe information and agreed to undergo the procedure. Discussed with the patient that he/she is at an explicit higher risk for complications in comparison to other patients Edwina Mclaughlin MD 04/12/2024 documented in this encounter Procedure Notes * Richard Marshall DO - 04/12/2024 1:46 PM EDTAssociated Order(s): UPPER ENDOSCOPIC U/S [facility] Patient Name: Lanny Andrews Procedure Date: 04/12/2024 1:46 PM Date of : 1965 Admit Type: Outpatient Note Status: Finalized Date of : 1965 Admit Type: Outpatient Age: 59 Room: OR 5 Gender: Female Note Status: Finalized Procedure: Upper EUS Indications: Abnormal abdominal PET scan Providers: Edwina Mclaughlin MD (Doctor), Shannan Jaquez MD: Richard Marshall DO, Sav Olivia MD, [facility] Medicines: Propofol per Anesthesia Complications: No immediate complications. Procedure: Pre-Anesthesia Assessment: - Prior to the procedure, a History and Physical was performed, and patient medications, allergies and sensitivities were reviewed. The patient's tolerance of previous anesthesia was reviewed. - The risks and benefits of the procedure and the sedation options and risks were discussed with the patient. All questions were answered and informed consent was obtained. - Patient identification and proposed procedure were verified prior to the procedure by the physician and the nurse. The procedure was verified in the procedure room. - Pre-procedure physical examination revealed no contraindications to sedation. After obtaining informed consent, the endoscope was passed under direct vision. All instruments were visually inspected immediately before and after removal from the patient to ensure they are fully intact. Throughout the procedure, the patient's blood pressure, pulse, and oxygen saturations were monitored continuously.The upper EUS was accomplished without difficulty. The patient tolerated the procedure well. The Endosonoscope was introduced through the mouth, and advanced to the second part of duodenum. Findings & Specimens: ENDOSONOGRAPHIC FINDING: : One malignant-appearing lymph node was visualized in the lower paraesophageal mediastinum (level 8L). It measured 39 mm by 43 mm in maximal cross-sectional diameter. The node was irregular, hypoechoic and had well defined margins. Fine needle biopsy was performed. Color Doppler imaging was utilized prior to needle puncture to confirm a lack of significant vascular structures within the needle path. Five passes were made with the 22 gauge Pers[place] biopsy needle using a transesophageal approach. A visible core of tissue was obtained. Verification of patient identification for the specimen was done by the physician and nurse using the patient's name and date. There was no sign of significant endosonographic abnormality in the visualized portion of the liver. Homogeneous parenchyma was identified. Impression: - One malignant-appearing lymph node was visualized in the lower paraesophageal mediastinum (level 8L). Fine needle biopsy performed. Recommendation: - Discharge patient to home. - Await cytology results. - Return to referring physician. Edwina Mclaughlin MD 04/12/2024 3:19:02 PM This report has been signed electronically. Estimated Blood Loss: Estimated blood loss: none. documented in this encounter Nursing Notes * Mala Feng RN - 04/12/2024 3:07 PM EDT EGD/EUS with FNA completed in [facility] OR. Patient tolerated procedure well. Airway patent. Sedated by [facility] anesthesia staff, see anesthesia record for medications and vital signs. Abd soft. Resting with HOB elevated. Transferred to [facility] via stretcher by anesthesia staff and endo staff. Report given at time of transport. Specimens verified with physician and sent to lab by endo staff nurse. Bedside pre clean of endoscope at completion of procedure performed by Lizette Carson RN documented in this encounter Miscellaneous Notes * Result Encounter Note - Sav Olivia MD - 04/12/2024 4:12 PM EDT Patient underwent GI endoscopy with ultrasound for lower paraesophageal lymph node biopsy on 04/12/2024. Path reports are pending. Chart note - One malignant-appearing lymph node was visualized in the lower paraesophageal mediastinum (level 8L). Fine needle biopsy performed. documented in this encounter Plan of Treatment Upcoming Encounters Date Type Department Care Team (Late st Contact Info) Description 04/13/2024 9:00 AM EDT Appointment Radiology, [facility] [address] [place] [address] 04/18/2024 2:30 PM EDT Office Visit Hematology/Oncology [facility] [address] [place] [phone] Nicole Vinson MD [address] [place] [address] 04/26/2024 8:30 AM EDT Office Visit Ophthalmology, [facility] [address] [place] [address] Anthony Grey, [address] [place] [address] 05/12/2024 9:30 AM EDT Office Visit General Surgery, [facility] [address] [facility] [place] [address] Thiago Parker MD [address] [place] [address] 06/15/2024 8:20 AM EST Office Visit Pulmonary Medicine, [facility] [address] [facility] [place] [address] Sav Olivia MD [address] [place] [address] 03/10/2025 10:00 AM EDT Office Visit [facility] [address] [place] [phone] Margie Gutierrez, [address] [place] [address] Pending Results Name Type Priority Associated Diagnoses Date /Time CYTOLOGY Pathology Routine 04/12/2024 3:1 5 PM EDT Scheduled Orders Name Type Priority Associated Diagnoses Orde r Schedule CYTOLOGY Pathology Routine One Time for 1 Occurrences starting 04/12/2024 until 04/12/2024, 1 completed Scheduled Procedures Name Priority Associated Diagnoses Date/Ti [...] Procedure Name Priority Date/Time Associated Diagnosis Comments US ENDOSCOPIC Routine 04/12/2024 3:11 PM EDT UPPER ENDOSCOPIC U/S 04/12/2024 1:46 PM EDT documented in this encounter Results * US ENDOSCOPIC (04/12/2024 3:11 PM EDT) Narrative Scheduling, Silent - 04/12/2024 3:12 PM EDT This is an imaging study not interpreted or resulted by a [facility] or [facility] contracted radiologist. Edwina Mclaughlin MD RAD ULTRASOUND * UPPER ENDOSCOPIC U/S (04/12/2024 1:46 PM EDT) 04/12/2024 1:4 6 PM EDT Narrative Procedure Note Richard Marshall, - 04/12/2024 1:46 PM EDT [facility] Patient Name: Lanny Andrews Procedure Date: 04/12/2024 1:46 PM Date of : 1965 Admit Type: Outpatient Note Status:Finalized Date of : 1965 Admit Type: Outpatient Age: 59 Room: OR 5 Gender: Female Note Status: Finalized Procedure: Upper EUS Indications: Abnormal abdominal PET scan Providers: Edwina Mclaughlin MD (Doctor), Shannan Gamez Referring MD: Richard Marshall DO, Sav Olivia MD,[facility] Medicines: Propofol per Anesthesia Complications: No immediate complications. Procedure: Pre-Anesthesia Assessment: - Prior to the procedure, a History and Physicalwas performed, and patient medications, allergies and sensitivities werereviewed. The patient's tolerance of previous anesthesia was reviewed. - The risks and benefits of the procedure and thesedation options and risks were discussed with the patient. All questions wereanswered and informed consent was obtained. - Patient identification and proposed procedurewere verified prior to the procedure by the physician and the nurse. The procedure wasverified in the procedure room. - Pre-procedure physical examination revealed nocontraindications to sedation. After obtaining informed consent, the endoscope waspassed under direct vision. All instruments were visually inspected immediatelybefore and after removal from the patient to ensure they are fully intact. Throughoutthe procedure, the patient's blood pressure, pulse, and oxygen saturations weremonitored continuously.The upper EUS was accomplished without difficulty. Thepatient tolerated the procedure well. The Endosonoscope was introduced through the mouth,and advanced to the second part of duodenum. Findings & Specimens: ENDOSONOGRAPHIC FINDING: : One malignant-appearing lymph node was visualized in the lowerparaesophageal mediastinum (level 8L). It measured 39 mm by 43 mm in maximal cross-sectional diameter. Thenode was irregular, hypoechoic and had well defined margins. Fine needle biopsy was performed. ColorDoppler imaging was utilized prior to needle puncture to confirm a lack of significant vascular structureswithin the needle path. Five passes were made with the 22 gauge [employer] biopsy needle using atransesophageal approach. A visible core of tissue was obtained. Verification of patient identificationfor the specimen was done by the physician and nurse using the patient's name and date. There was no sign of significant endosonographic abnormality in thevisualized portion of the liver. Homogeneous parenchyma was identified. Impression: - One malignant-appearing lymph node was visualizedin the lower paraesophageal mediastinum (level 8L). Fine needle biopsyperformed. Recommendation: - Discharge patient to home. - Await cytology results. - Return to referring physician. Edwina Mclaughlin MD 04/12/2024 3:19:02 PM This report has been signed electronically. Estimated Blood Loss: Estimated blood loss: none. Richard Marshall DO GASTRO UPPER documented in this encounter Administered Medications Inactive Administered Medications - up to 3 most recent administrations Medication Order MAR Action Action Date Dose Rate Site fentaNYL (PF) inj 50 mcg 50 mcg, IV Push, Q5 MIN PRN Pain, Moderate, Pain, Severe, Starting on Thu04/12/24 at 1519, Until Thu04/12/24 at 2011, Administer up to a total of 200mcg. Administer only postop in PACU When given IV Push its recommended that the dose be given over 3 to 5 minutes., PACU Given 04/12/2024 3:28 PM EDT 50 mcg HYDROmorphone (Dilaudid) inj 0.5 mg 0.5 mg, IV Push, Q15 MIN PRN Pain, Severe, Pain, Breakthrough, Starting on Thu04/12/24 at 1519, Until Thu04/12/24 at 2011, Administer only postop in PACU. Hold for respiratory rate less than 12. Administer up to a total of 2mg., PACU Given 04/12/2024 3:50 PM EDT 0.5 mg isolyte-S pH 7.4 infusion Intravenous, at 25 mL/hr, All Patients EXCEPT Dialysis patients Plasma-LYTE 148, isolyte-S, and isolyte-S pH 7.4 are considered equivalent - including for MAR barcode scanning., CONTINUOUS, Starting on Thu04/12/24 at 1415, Until Thu04/12/24 at 2011, Pre-Op Restarted 04/12/2024 3:07 PM EDT Continue from Pre-Op 04/12/2024 2:20 PM EDT 25 mL/hr New Bag 04/12/2024 1:57 PM EDT 25 mL/hr 25 mL/hr metoclopramide (Reglan) inj 10 mg 10 mg, IV Push, ONCE PRN Nausea, Vomiting, Starting on Thu04/12/24 at 1519, Until Thu04/12/24 at 2011, For 1 dose, Administer only post-op in PACU, PACU ondansetron (Zofran) inj 4 mg 4 mg, IV Push, Q6H PRN Nausea, Starting on Thu04/12/24 at 1519, Until Thu04/12/24 at 2012, For 1 day, Administer only if it was not given during the procedure, or it has been more than 6 hours since the last dose., PACU oxygen GAS Inhalation, OXYGEN, First dose on Thu04/12/24 at 1600, Until Discontinued, Device/Managed by: Low Flow Device, Goal SPO2 (%): Other, Lower-limit SPO2 (%): 88, Upper-limit SPO2 (%): 92, Starting Device: Nasal Cannula, Initial Flow Rate (LPM): 6 LPM for NC; 10 LPM for NRB mask, Lowest Support: Nasal Cannula: Flow 0-6 LPM. Titrate up/down by 1 LPM., Higher Support: Non-Rebreather (NRB) Mask: Minimum of 10 LPM. Titrate to maintain bag inflation., Titration Interval: Q2 minutes and as needed., Notify Provider: Other, Notify Provider [other]: If SpO2 less than 88%, notify provider immediately, If patient is on Room Air in the PACU and SpO2 is greater than 88% but less than 92% place patient on Nasal Cannula If patient is on Room Air in the PACU and SpO2 is less than 88% place patient on NRB Mask documented in this encounter Active and Recently Administered Medications Times are shown in EDT. Scheduled Medication Order 04/10/2024 04/11/2024 04/12/2024 Acetaminophen (Tylenol) tab 975 mg 975 mg, Oral, ONCE, On Thu04/12/24 at 1600, For 1 dose, Administer only postop in PACU if it was NOT GIVEN during the case or if it has been more than 8 hours since administration, PACU 1600 (Due) cefOXitin in dextrose (Mefoxin) ivpb 2 g (COMPLETED) 2 g, IV Piggyback, ONCE, 1 dose, On Thu04/12/24 at 1430 1423 (Given - Provid er: Kaylie Dawson CRNA) oxygen GAS Inhalation, OXYGEN, First dose on Thu04/12/24 at 1600, Until Discontinued, Device/Managed by: Low Flow Device, Goal SPO2 (%): Other, Lower-limit SPO2 (%): 88, Upper-limit SPO2 (%): 92, Starting Device: Nasal Cannula, Initial Flow Rate (LPM): 6 LPM for NC; 10 LPM for NRB mask, Lowest Support: Nasal Cannula: Flow 0-6 LPM. Titrate up/down by 1 LPM., Higher Support: Non-Rebreather (NRB) Mask: Minimum of 10 LPM. Titrate to maintain bag inflation., Titration Interval: Q2 minutes and as needed., Notify Provider: Other, Notify Provider [other]: If SpO2 less than 88%, notify provider immediately, If patient is on Room Air in the PACU and SpO2 is greater than 88% but less than 92% place patient on Nasal Cannula If patient is on Room Air in the PACU and SpO2 is less than 88% place patient on NRB Mask 1600 (Due) Continuous Medication Order 04/10/2024 04/11/2024 04/12/2024 isolyte-S pH 7.4 infusion Intravenous, at 25 mL/hr, All Patients EXCEPT Dialysis patients Plasma-LYTE 148, isolyte-S, and isolyte-S pH 7.4 are considered equivalent - including for MAR barcode scanning., CONTINUOUS, Starting on Thu04/12/24 at 1415, Until Thu04/12/24 at 2011, Pre-Op 1357 (New Bag - Prov ider: Patsy Murphy RN)1420 (Continue from Pre-Op - Provider: Kaylie Dawson CRNA)1506 (Paused - Provider: Kaylie Dawson CRNA - Comment: Switch to gravity)1507 (Restarted - Provider: Kaylie Dawson CRNA) PRN Medication Order 04/10/2024 04/11/2024 04/12/2024 fentaNYL (PF) inj 50 mcg 50 mcg, IV Push, Q5 MIN PRN Pain, Moderate, Pain, Severe, Starting on Thu04/12/24 at 1519, Until Thu04/12/24 at 2011, Administer up to a total of 200mcg. Administer only postop in PACU When given IV Push its recommended that the dose be given over 3 to 5 minutes., PACU 1528 (Given - Provid er: Patsy Murphy RN) HYDROmorphone (Dilaudid) inj 0.5 mg 0.5 mg, IV Push, Q15 MIN PRN Pain, Severe, Pain, Breakthrough, Starting on Thu04/12/24 at 1519, Until Thu04/12/24 at 2011, Administer only postop in PACU. Hold for respiratory rate less than 12. Administer up to a total of 2mg., PACU 1550 (Given - Provid er: Patsy Murphy RN) metoclopramide (Reglan) inj 10 mg 10 mg, IV Push, ONCE PRN Nausea, Vomiting, Starting on Thu04/12/24 at 1519, Until Thu04/12/24 at 2011, For 1 dose, Administer only post-op in PACU, PACU ondansetron (Zofran) inj 4 mg 4 mg, IV Push, Q6H PRN Nausea, Starting on Thu04/12/24 at 1519, Until Thu04/12/24 at 2011, For 1 day, Administer only if it was not given during the procedure, or it has been more than 6 hours since the last dose., PACU documented in this encounter Care Teams Community Services Officer Relationship Specialty Start Date End Date Richard Marshall DO [address] [place] [address] [place] [address] PCP - General Family Medicine 08/26/22 documented as of this encounter
--- OUTSIDE RECORDS SUMMARY | 2024-08-11 03:44 | External Medical Summary | Summary of Care ---
Author Name Unknown Organization [facility] Address [address] [place] [address] Phone [phone] Care Team Providers Care Infection Control Rn Name Role Phone Richard Marshall DO Primary Care Provider + [phone] Reason for Visit * Auth/Cert Specialty Diagnoses / Procedures Referred By Contsea t Referred To Contact Diagnoses Lung cancer metastatic to bone (HCC) Lung cancer metastatic to bone (HCC) [C34.90, C79.51] Procedures PRE / POST CARE PRE / POST CARE [facility] [address] [place] [address] Phone: [phone] Or [facility] [address] [facility] [place] [address] Referral ID Status Reason Start Date Expiration Date Visits Re quested Visits Authorized [id number] Encounter Details Date Type Department Care Team (Latest Contact Info) Description 04/13/2024 8:03 AM EDT - 04/13/2024 10:03 AM EDT Hospital Encounter OR [facility], Operating Room, [facility] - 4th Floor [address] [place] [address] [facility], In And Out Surgery [address] [place] [place] [address] Discharge Disposition: Home - Self Care Allergies Active Allergy Reactions Criticality Noted Date Comments Iodinated Contrast Media 07/05/2021 "itchy, rash and hives" CT Scan documented as of this encounter (statuses as of 04/13/2024) Medications Medication Sig Dispensed Refills Start Date End Date Status Vitamin D (Cholecalciferol ) 50 MCG (2000 UT) Oral Capsule Take by mouth at bedtime. Active Ferrous Sulfate 325 (65 Fe) MG Oral Tablet (Feosol) Take 1 Tablet by mouth at bedtime. Active Stiolto Respimat 2.5-2.5 MCG/ACT Inhalation Aerosol Solution (Tiotropium [place]-Olodater ol)Indications:C OPD, severity to be determined (HCC) Inhale 2 [...] for Pain, Moderate. 90 Tablet 04/04/2024 Active Lidocaine 5 % External Patch (Lidoderm) Place 1 Patch topically on the skin daily. 12 hrs on 12 hrs off, as needed 4 Discontinue d(Patient preference/ discontinua tion) documented as of this encounter (statuses as [...] No 05/22/2023 Does the household have a veterans affairs medical centerr source of income? (Household - for ages [...] Sign Reading Time Taken Comments Blood Pressure 138/80 04/13/2024 9:56 AM EDT Pulse 70 04/13/2024 9:56 AM EDT Temperature 36.3 C (97.3 F) 04/13/2024 9:56 AM E DT Respiratory Rate 18 04/13/2024 9:56 AM EDT Oxygen Saturation 94% 04/13/2024 9:56 AM EDT Inhaled Oxygen Concentration - - Weight 74.8 kg (165 lb) 04/13/2024 8:13 AM EDT Height 162.6 cm (5' 4") 04/13/2024 8:13 AM EDT Body Mass Index 28.32 04/13/2024 8:13 AM EDT documented in this encounter Discharge Instructions * Discharge Instr - AVS* Nathan Hardwick MD - 04/13/2024 9:42 AM EDT Discharge Date: 04/13/2024 Provider: Dr. Nathan Hardwick If you are experiencing any problems related to your procedure, please contact Interventional Radiology at [phone] during normal business hours: Thursday- Thursday 7:30 am - 4 pm. If a problem occursoutside of normal business hours, please call the hospital box blank machine operator helper at [phone] and ask for theInterventional Radiologist cargo and container inspector. Contact scheduling for Interventional Radiology at [phone] during normal business hours: Thursday-Thursday, 7:30 am [...] us at the numbers above. SPECIAL INSTRUCTIONS bone Biopsy Care After Your Biopsy If you experience pain or discomfort at the site you may use a cold pack on the site and/or take acetaminophen (Tylenol) or your preferred pain medicine as directed. Avoid strenuous activity for 24 to 48 hours after the procedure. Do not lift anything heavier than 10 pounds for 3 days after the procedure. Gradually increase your activity after 24 to 48 hours after the procedure. Keep the dressing clean and dry; change as needed. Dressing can be removed in 24 hours. You may shower after 24 hours. Gently wash the area and pat it dry. Please DO NOT take a bath, soak in a hot tub, or swim until the wound is completely healed. Follow Up Your requesting physician will contact you with the results of your test. Please allow 5 to 7 business days for your results. Please check YaKlasser messages or contact the referring physician for results. When to Call Interventional Radiology Call Interventional [...] feel you are having a medical emergency, [id number] for emergency assistance. Chest Pain Sudden, severe shortness of breath Rapid heart rate Sudden onset of weakness Coughing up blood See your referring physician for follow-up appointment. Do not smoke or use tobacco products in any way! If you feel suicidal or homicidal, please call the crisis hotline at [phone] ([phone]) MODERATE SEDATION You may have received medication [...] Progress Notes * Nathan Hardwick MD - 04/13/2024 9:42 AM EDT Post Sedation Evaluation: Cardiovascular status: acceptable Level of consciousness: awake and alert Airway patency: patent Distress - NAD Hydration status - well hydrated Nausea/vomiting - not present Pain Evaluation Pain Assessment Flowsheet Row Most Recent Value Pain Assessment Scale [facility] 0-10 Pain Score 0 (no pain) Vital Signs: Temp: 36.5 C (97.7 F) (04/13 935) BP: 116/51 (04/13 935) Pulse: 72 (04/13 935) Resp: 16 (04/13 935) SpO2: 95 % (04/13 935) I have personally examined the patient, prescribed the necessary medications as charted, and certify that Lanny Andrews is recovered for safe discharge from my face to face care. * Nathan Hardwick MD - 04/13/2024 9:42 AM EDT [address] [address] OUTPATIENT SURGERY DISCHARGE SUMMARY NOTE Name: Lanny Andrews Location: [facility]/[place] Date: 04/13/2024 Time: 9:42 AM Surgery Date: 04/13/2024 Procedure: PRE / POST CARE Left Surgeon: [facility], In And Out Surgery Discharge Diagnosis: bone bx After examination of this patient, I have determined she is ready for discharge to home when the patient meets criteria. Discharge instructions were given to the patient. documented in this encounter H&P Notes * Nathan Hardwick MD - 04/13/2024 9:01 AM EDT HISTORY & PHYSICAL - Interventional Radiology Service [address] [address] Name: Lanny Andrews Location: [facility]/[place] Date: 04/13/2024 Time: 9:01 AM CHIEF COMPLAINT: Pet+ bone lesion HISTORY OF PRESENT ILLNESS: Bone lesion pet + Past Medical History: Diagnosis Date Carpal tunnel [...] (EGD), FLEXIBLE, TRANSORAL, DIAGNOSTIC performed by Yousif Granger, [facility] ENDOSCOPY [facility] EGD, W/ENDOSCOPIC US N/A 04/12/2024 ESOPHAGOGASTRODUODENOSCOPY (EGD), FLEXIBLE, TRANSORAL, ENDOSCOPIC ULTRASOUND performed by Edwina Mclaughlin MD at [facility] INJECTION OF EYE DRUG Right 07/05/2021 # [...] Right 02/29/2024 #17 Avastin OD, Dr. Grey LASER SURGERY OF INNER EYE STRANDS Right OTHER (INFORMATION) ACT 112 SIGNED 07/05/21 DR. GREY OTHER (INFORMATION) Right AVASTIN OD CONSENT DR. GREY/MAYLIN EXP. 07/05/22 OTHER (INFORMATION) Bilateral AVASTIN OU CONSENT DR. GREY/MYALIN EXP. 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: not previously working Tobacco Use Smoking status: Former Current packs/day: 0.00 Average packs/day: 1 pack/day for 35.0 years (35.0 ttl pk-yrs) Types: Cigarettes Start date: 1984 Quit date: 2019 Years since quittin.7 Smokeless tobacco: Never Vaping [...] Stability Do you currently live in a group home or have no steady place to [...] Route Frequency Provider Last Rate Last Admin isolyte-S pH 7.4 infusion Intravenous Continuous Nathan Hardwick MD 10 mL/hr at 04/13/24 0836 New Bag at 04/13/24 0836 REVIEW OF SYSTEMS: Constitutional: (-) fever chills sweats or weight loss Cardiovascular: (-) negative: no chest pain, dyspnea, syncope, or palpitations Pulmonary: (-) negative: no cough, wheezing, or shortness of breath Abdominal/GI: (-) negative: no pain, heartburn, dysphagia, bleeding, change in bowel habits, nauseaor vomiting OBJECTIVE: BP 136/84 | Pulse 72 | Temp 36 C (96.8 F) (Tympanic) | Resp 16 | Ht 1.626 m (5' 4") | Wt 74.8 kg (165 lb) | SpO2 93% | BMI 28.32 kg/m | BSA 1.84 m PHYSICAL EXAM: [...] AM INFORMED CONSENT: Yes PRE-SEDATION ASSESSMENT IMPRESSION/PLAN: Bone bx Nathan Hardwick MD documented in this encounter OR Notes * OR Surgeon - Nathan Hardwick MD - 04/13/2024 10:03 AM EDT Procedure: CT-guided percutaneous [left iliac bone] biopsy. 04/13/24 INDICATION: [Lytic bone lesion PET+] ATTENDING (OPERATING PHYSICIAN): [Mulu] CONSENT: After a detailed discussion of the procedure, risks, benefits and alternative treatment options, informed consent was obtained. TIME OUT: A time out procedure was performed. The patient's identification was verified. Informed consent with agreement of procedure, site and position was obtained. All necessary equipment was available prior to procedure. CONTRAST: No contrast administered. COMPLICATIONS: None. ANESTHESIA: [Local lidocaine.] [IV Versed.] [IV Fentanyl.] SEDATION TIME: [Start to end: [[id number]]. Qualified nurse sedation observer [Claude, RN.] MEDICATIONS: See MAR PROCEDURE DESCRIPTION: After survey CT images of the [body part] were performed, the [describe lesion] was studied. Then the access site was selected and prepped and draped in the usual sterile fashion. The skin and deep soft tissues were anesthetized and under CT guidance a coaxial needle was advanced just within the [posterior] margin.A gauge core biopsy specimens were obtained via the coaxial n eedle and placed in a vial of sterile saline. The on-site line and frame poler deemed the samples to be [adequate]. All specimen samples were given to the line and frame poler. Gelfoam slurry applied. the cannula was then removed, hemostasis was achieved and the site was dressed. The patient tolerated the procedure well. I personally performed the procedure. Findings: Limited CT scan images for the purposes of biopsy demonstrate [lytic bone lesion]. Further imaging shows the coaxial needle is seen within the margin of the target with more than adequate distance for the biopsy throws. No immediate complication on post biopsy imaging. Impression:[ Successful CT-guided percutaneous left iliac bone biopsy. ] Successful CT-guided percutaneous [lytic bone lesion] biopsy. * Operative Report Brief - Nathan Hardwick MD - 04/13/2024 9:39 AM EDT PROCEDURE NOTE - Interventional Radiology [facility]-[address] [place] [address] Name: Lanny Andrews Location: [facility]/OR Date: 04/13/2024 Time: 9:39 AM PROCEDURE: left iliac bone bx RIVERBOAT CAPTAIN: Dr. Nathan Hardwick ASSISTANTS: none ANESTHESIA: conscious sedation COMPLICATIONS: none SPECIMEN: tissue to surgical pathology ESTIMATED BLOOD LOSS: negligible FINDINGS: lytic iliac lesion documented in this encounter Miscellaneous Notes * Pre-Sedation Assessment - Nathan Hardwick MD - 04/13/2024 9:02 AM EDT PRE-SEDATION ASSESSMENT PRE-SEDATION ASSESSMENT: Bone Bx Level of sedation planned: Moderate Patient's allergies reviewed: Yes H&P Review / [...] fauces visible Chest: Clear Heart: Regular Rhythm ASA Risk Stratification (Select One): ASA 2 - Mild systemic disease, no functional limitations The patient was identified and the procedure verified: Yes The patient was reevaluated immediately prior to the sedation: 04/13/2024 9:02 AM documented in this encounter Plan of Treatment Upcoming Encounters Date Type Department Care Team (Late st Contact Info) Description 04/18/2024 2:30 PM EDT Office Visit Hematology/Oncology State Linda Ledbetter [address] [place] [address] [place] [address] Nicole Vinson MD [address] [place] [phone] 04/26/2024 8:30 AM EDT Office Visit Ophthalmology, [facility] [address] [place] [address] Anthony Grey, DO [address] [place] [address] 05/12/2024 9:30 AM EDT Office Visit General Surgery, [facility] [address] [place] [address] Thiago Parker MD [address] [place] [address] 06/15/2024 8:20 AM EST Office Visit Pulmonary Medicine, [facility] [address] [place] [address] Sav Olivia MD [address] [place] [address] 03/10/2025 10:00 AM EDT Office Visit Sleep Disorders [address] [place] [phone] Margie Gutierrez, [address] [place] [address] Scheduled Procedures Name Priority Associated Diagnoses Date/Ti [...] Not on filedocumented as of this encounter Administered Medications Inactive Administered Medications - up to 3 most recent administrations Medication Order MAR Action Action Date Dose Rate Site isolyte-S pH 7.4 infusion Intravenous, at 10 mL/hr, Plasma-LYTE 148, isolyte-S, and isolyte-S pH 7.4 are considered equivalent - including for MAR barcode scanning., CONTINUOUS, Starting on Thu04/13/24 at 0915, Until Thu04/13/24 at 1403 New Bag 04/13/2024 8:36 AM EDT 10 mL /hr documented in this encounter Active and Recently Administered Medications Times are shown in EDT. Continuous Medication Order 04/11/2024 04/12/2024 04/13/2024 isolyte-S pH 7.4 infusion Intravenous, at 10 mL/hr, Plasma-LYTE 148, isolyte-S, and isolyte-S pH 7.4 are considered equivalent - including for MAR barcode scanning., CONTINUOUS, Starting on Thu04/13/24 at 0915, Until Thu04/13/24 at 1403 0836 (New Bag - Prov ider: Keara Herrera RN) documented in this encounter Care Teams Infection Control Rn Relationship Specialty Start Date End Date Richard Marshall DO [address] [place] [address] [phone] PCP - General Family Medicine 08/26/22 documented as of this encounter
--- OUTSIDE RECORDS SUMMARY | 2024-08-11 03:45 | External Medical Summary | Summary of Care ---
Author Name Unknown Organization [facility] Address [address] [place] [facility] [address] Phone [phone] Care Team Providers Care Account Manager Name Role Phone Richard Marshall DO Primary Care Provider + [phone] Reason for Visit * Reason Comments Outpatient Testing Encounter Details Date Type Department Care Team (Late st Contact Info) Description 04/04/2024 3:10 PM EDT Laboratory Laboratory [facility] [address] [place] [phone] [place], Lab Scenery [address] [place] [address] Lung cancer metastatic to bone (HCC) Allergies Active Allergy Reactions Criticality Noted Date Comments Iodinated Contrast Media 07/05/2021 "itchy, rash and hives" CT Scan documented as of this encounter (statuses as of 04/04/2024) Medications Medication Sig Dispensed Refills Start Date [...] Respimat 2.5-2.5 MCG/ACT Inhalation Aerosol Solution (Tiotropium [place]-Olodaterol )Indications:COPD, severity to be determined ([facility] [...] hours as needed for Pain, Severe. Active Hospital, Clinic, or Other Facility Administered Medication Ordered Dose Route Frequency Start Date End Date Status bevaCIZumab (Avastin) inj 1.25 mgIndications:Radiation retinopathy, subsequent encounter 1.25 mg IZ PRN 10/08/2023 10/07/2024 Active ROPivacaine (Naropin) inj 1.5 mgIndications:Radiation retinopathy, subsequent encounter 1.5 mg IJ PRN 10/08/2023 10/07/2024 Active documented as of this encounter (statuses as of 04/04/2024) Active Problems Problem Noted Date Diagnosed Date Dermatillomania in adult 03/03/2023 COPD, group A, by GOLD 2017 classification 07/07 Overview: Per COPD GOLD Classification Major depressive disorder, recurrent episode, mo derate 10/28/2021 KRYSTA (generalized anxiety disorder) 10/28/2021 History of tobacco abuse 07/09/2021 GERD (gastroesophageal reflux disease) Mood disorder 07/09/2021 documented as of this encounter (statuses as of 04/04/2024) Resolved Problems Problem Noted Date Diagnosed Date Resolved Date COPD, severity to be determined 07/09/2021 07/10/2022 Overview: Per COPD GOLD Classification documented as of this encounter (statuses as of 04/04/2024) Immunizations Name Administration Dates Next Due Covid-19 [...] 05/22/2023 Does the household have a unm children's hospitallar source of income? (Household - for [...] Care Team (Latest Contact Info) Description 4 10:00 AM EDT Office Visit Radiation Oncology, [facility] [address] [place] [address] Carmella Galindo MD [address] [place] [address] 4 9:00 AM EDT Imaging Radiology [facility] [facility] [address] [place] [address] 4 2:51 PM EDT Hospital Encounter OR [facility], Operating Room, [facility] - 4th Floor [address] [place] [phone] Edwina Mclaughlin MD [address] [place] [address] 4 2:51 PM EDT - 4 3:29 PM EDT Surgery OR [facility], Operating Room, [facility] - 4th Floor [address] [place] [phone] Edwina Mclaughlin MD [address] [place] [address] ESOPHAGOGASTRODUODENOSCOPY (EGD), FLEXIBLE, TRANSORAL, ENDOSCOPIC ULTRASOUND 4 2:30 PM EDT Office Visit Hematology/Onco [facility] [place] [address] [facility] [phone] Nicole Vinson MD [address] [facility] [phone] 4 8:30 AM EDT Office Visit Ophthalmology, [facility] [address] [facility] [place] [address] Anthony Grey DO [address] [place] [address] 4 9:30 AM EDT Office Visit General Surgery, [facility] 132 [facility] [place] [address] Thiago Parker MD [address] [place] [address] 4 8:20 AM EST Office Visit Pulmonary Medicine, [facility] [address] [facility] [place] [address] Sav Olivia MD [address] [facility] [place] [address] 10:00 AM EDT Office Visit Sleep Disorders Ctr [facility] [address] [place] [address] Margie Gutierrez DO [address] [place] [address] Pending Results Name Type Priority Associated Diagnoses Date /Time CBC WITH WBC DIFFERENTIAL Lab Routine Lung cancer metastatic to bone (HCC) 04/04/2024 3:10 PM EDT COMPREHENSIVE METABOLIC PANEL Lab STAT Lung cancer metastatic to bone (HCC) 04/04/2024 3:10 PM EDT LD Lab Routine Lung cancer metastatic to bone (HCC) 04/04/2024 3:10 PM EDT D-DIMER Lab Routine Lung cancer metastatic to bone (HCC) 04/04/2024 3:10 PM EDT CEA Lab Routine Lung cancer metastatic to bone (HCC) 04/04/2024 3:10 PM EDT CA 19-9 Lab Routine Lung cancer metastatic to bone (HCC) 04/04/2024 3:10 PM EDT CA 27.29 Lab Routine Lung cancer metastatic to bone (HCC) 04/04/2024 3:10 PM EDT PT INR Lab Routine Lung cancer metastatic to bone (HCC) 04/04/2024 3:10 PM EDT HEPATITIS C ANTIBODY SCREEN WITH PROGRESSION TO HEPATITIS C RNA QUANTITATIVE Lab Routine Lung cancer metastatic to bone (HCC) 04/04/2024 3:10 PM EDT HEPATITIS B CORE ANTIBODIES IGG AND IGM Lab Routine Lung cancer metastatic to bone (HCC) 04/04/2024 3:10 PM EDT CBC Lab Routine Lung cancer metastatic to bone (HCC) 04/04/2024 3:10 PM EDT DIFFERENTIAL, AUTOMATED Lab Routine Lung cancer metastatic to bone (HCC) 04/04/2024 3:10 PM EDT HEPATITIS C ANTIBODY Lab Routine Lung cancer metastatic to bone (HCC) 04/04/2024 3:10 PM EDT HEPATITIS C RNA ADD ON Lab Routine Lung cancer metastatic to bone (HCC) 04/04/2024 3:10 PM EDT Scheduled Procedures Name Priority Associated Diagnoses Date/Ti me ESOPHAGOGASTRODUODENOSCOPY ( EGD), FLEXIBLE, TRANSORAL, ENDOSCOPIC ULTRASOUND Abnormal finding on imaging 04/12/2024 2:51 PM EDT Health Maintenance Due Date Last Done Comments Pneumococcal Vaccine: Pediatrics (0 to 5 Years) and At-Risk Patients (6 to 64 Years) (1 of 2 - PCV) 01/11/1970 Depression Monitoring 1976 HIV Screening 01/11/1979 Hepatitis C Screening 01/11/1982 DTap/Tdap Vaccines (1 - Tdap) 01/11/1983 Zoster [...] Lipid Panel 10/09/2026 10/09/2021, 07/09/2021 Diabetes Screening 12/17/2026 12/18/2023, 07/09/2021 Alpha-1 Antitrypsin Completed 10/09/2021 Lung [...] Diagnosis Lung cancer metastatic to bone (HCC) Abnormal finding on imaging Other nonspecific (abnormal) findings on radiological and other examinations of body structure documented in this encounter Care Teams Account Manager Relationship Specialty Start Date End Date Richard Marshall DO [address] [place] [address] PCP - General Family Medicine 08/26/22 documented as of this encounter
--- OUTSIDE RECORDS SUMMARY | 2024-08-11 03:45 | External Medical Summary | Summary of Care ---
Author Name Unknown Organization [facility] Address [address] [place] [address] Phone [phone] Care Team Providers Care Department Manager Name Role Phone Richard Marshall DO Primary Care Provider [phone] Reason for Visit * Reason Onset Date Comments Advice 03/10/2024 Re: Ct Chest res ults Encounter Details Date Type Department Care Team (Late st Contact Info) Description 03/10/2024 Telephone Pulmonary Medicine, [facility] [address] [facility] [place] [address] Services, Scheduling [address] [place] [address] Advice (Re: Ct Chest results) Allergies Active Allergy Reactions Criticality Noted Date Comments Iodinated Contrast Media 07/05/2021 "itchy, rash and hives" CT Scan documented as of this encounter (statuses as of 03/14/2024) Medications Medication Sig Dispensed Refills Start Date [...] Respimat 2.5-2.5 MCG/ACT Inhalation Aerosol Solution (Tiotropium [place]-Olodaterol )Indications:COPD, severity to be determined (HCC) [...] as of this encounter (statuses as of 03/14/2024) Active Problems Problem Noted Date Diagnosed Date Dermatillomania in adult 03/03/2023 COPD, group A, by GOLD 2017 classification 07/07 Overview: Per COPD GOLD Classification Major depressive disorder, recurrent episode, mo derate 10/28/2021 KRYSTA (generalized anxiety disorder) 10/28/2021 History of tobacco abuse 07/09/2021 GERD (gastroesophageal reflux disease) Mood disorder 07/09/2021 documented as of this encounter (statuses as of 03/14/2024) Resolved Problems Problem Noted Date Diagnosed Date Resolved Date COPD, severity to be determined 07/09/2021 07/10/2022 Overview: Per COPD GOLD Classification documented as of this encounter (statuses as of 03/14/2024) Immunizations Name Administration Dates Next Due Covid-19 Ad26, Single Dose (Jeffrey/J&J) 021 Seasonal Influenza, PF, 6 M & above, IM , (FluLaval or Fluzone) 07/18/2021 documented as of this encounter Social History [...] Miscellaneous Notes * Telephone Encounter - Sandy Rodgers OSA - 03/14/2024 6:08 PM EDT Spoke with pt. Apt rescheduled to 03/31/24 at 7:[address] Olivia. * Telephone Encounter - Sandy Chavez LPN - 03/14/2024 1:44 PM EDT Pt is scheduled for PET at 03/22. Please move appt to after the PET, as soon as possible. * Telephone Encounter - Sandy Chavez LPN - 03/11/2024 9:[address] Olivia, pt should have PET prior to the f/u appt with him. I called Argelia back at the PCP office, and they will place the order (as Dr Olivia is not available to place it). Argelia will call me back when that is scheduled. * Telephone Encounter - Sandy Chavez LPN - 03/11/2024 9:08 AM EDT I spoke with Argelia, who said Dr Marshall wants to know if anything needs to be done re: the ct chest result-prior to the 03/[address] Olivia. TT sent to Dr Olivia. * Telephone Encounter - Nohemy Vázquez OSA - 03/10/2024 4:01 PM EDT Pt's pcp called saying the pt had act of the chest done on March 07 and he would like to discusswith Dr. Olivia the new nodules he noted on the scan. Please call Mayra at Dr. Marshall's offer at [phone]. Thank you [facility] Scheduling Services documented in this encounter Plan of Treatment Upcoming Encounters Date Type Department Care Team (Late st Contact Info) Description 03/23/2024 9:45 AM EDT Imaging Radiology [address] [place] [address] 03/29/2024 8:45 AM EDT Imaging Radiology [address] [place] [address] 03/29/2024 10:00 AM EDT Imaging Radiology [address] [place] [address] 03/31/2024 7:40 AM EDT Office Visit Pulmonary Medicine, [address] [place] [address] Sav Olivia MD [address] [place] [address] 04/26/2024 8:30 AM EDT Office Visit Ophthalmology, [facility] [address] [place] [address] Anthony Grey, DO [address] [place] [address] 05/12/2024 9:30 AM EDT Office Visit General Surgery, [facility] [address] [facility] [place] [address] Thiago Parker MD [address] [place] [address] 03/10/2025 10:00 AM EDT Office Visit [facility] [address] [place] [id number] Margie Gutierrez, DO [address] [facility] [place] [address] Health Maintenance Due Date Last Done Comments Pneumococcal Vaccine: Pediatrics (0 to 5 Years) and At-Risk Patients (6 to 64 Years) (1 of 2 - PCV) 01/11/1970 Depression Monitoring 1976 HIV Screening 01/11/1979 Hepatitis C Screening 01/11/1982 DTaP,Tdap,and Td Vaccines (1 - Tdap) 01/11/1983 Zoster Vaccines (1 of 2) 01/11/1983 HPV/Co-Test 01/11/1994 Cologuard 01/11/2009 Colonoscopy 01/11/2009 Colorectal Cancer Screening 01/11/2009 Fecal Occult Blood Test 01/11/2009 Sigmoidoscopy 01/11/2009 COVID-19 Vaccine (2 - Jansse n risk series) 01/16/2021 12/19/2020 Mammogram 09/22/2023 09/22/2022, 08/22/2021 Influenza Vaccine (FLU shot) (#1) 2024 07/18/2021, 07/18/2021 Cervical Cancer Screening 10/07/2024 Pap Smear 10/07/2024 10/07/2021 O2 ASSESSMENT COMPLETED IN PAST YEAR FOR COPD 01/26/2025 01/27/2024 Lipid Panel 10/09/2026 10/09/2021, 07/09/2021 Diabetes Screening 12/17/2026 12/18/2023, 07/09/2021 Alpha-1 Antitrypsin Completed 10/09/2021 Lung Cancer Screening Completed 03/07/2024 , 05/04/2023, 04/01/2022 HPV (Gardasil) Vaccine Aged Out No lo nger eligible based on patient's age to complete this topic Hepatitis B Vaccine Aged Out No longe r eligible based on patient's age to complete this topic MENINGOCOCCAL (MENACTRA/MENVEO) Aged Out No longer eligible b ased on patient's age to complete this topic documented as of this encounter Medical Devices Not on filedocumented as of this encounter Care Teams Department Manager Relationship Specialty Start Date End Date Richard Marshall DO [address] [place] [id number] PCP - General Family Medicine 08/26/22 documented as of this encounter
--- OUTSIDE RECORDS SUMMARY | 2024-08-11 03:45 | External Medical Summary ---
Author Name Unknown Address Unknown Organization [id number]:[facility] [address] [place] [address] Laboratory Report Ordering Provider Test Date Status EDD ROCHA 04/04/2024 15:10:58 Final Observation Date Value Abnormality Reference (Units ) Status SYNC LEUKOCYTES IN BLOOD BY AUTOMATED COUNT 04/04/2024 15:10:58 10.14 4.00-10.80 (K/uL) Final Segs 04/04/2024 15:10:58 73.4 40.0-75.0 (%) Final Lymphs % 04/04/2024 15:10:58 18.0 18.0-42.0 (%) Final Monos 04/04/2024 15:10:58 6.7 1.0-11.0 (%) Final Eosinophils 04/04/2024 15:10:58 1.7 0.0-6.0 (%) Final Basos 04/04/2024 15:10:58 0.2 0.0-2.0 (%) Final Absolute Segs 04/04/2024 15:10:58 7.44 1.80-7.70 (K/uL) Final Lymphs, absolute 04/04/2024 15:10:58 1.83 1.00-4.80 (K/ul) Final Monos, Abs 04/04/2024 15:10:58 0.68 0.00-1.10 (K/uL) Final Eos, Abs 04/04/2024 15:10:58 0.17 0.00-0.70 (K/uL) Final Basos, Abs 04/04/2024 15:10:58 0.02 0.00-0.20 (K/uL) Final Performing Location [facility] [address] [place] [address]
--- OUTSIDE RECORDS SUMMARY | 2024-08-11 03:45 | External Medical Summary ---
Author Name Unknown Address Unknown Organization K09:[facility] [address] [place] [address] Laboratory Report Ordering Provider Test Date Status EDD ROCHA 04/04/2024 15:10:58 Final Warfarin Therapy
INR: 2 .0-3.0 conventional anticoagulation
INR: 2.5- 3.5 high intensity anticoagulation Observation Date Value Abnormality Reference (Units ) Status PT 04/04/2024 15:10:58 12.7 11.6-15.2 (seconds) Final INR 04/04/2024 15:10:58 1.0 0.8-1.2 Final Performing Location [facility] [place] [address]
--- OUTSIDE RECORDS SUMMARY | 2024-08-11 03:45 | External Medical Summary | Summary of Care ---
Author Name Unknown Organization [facility] Address [address] [facility] [place] [address] Phone [phone] Care Team Providers Care Web Content Executive Name Role Phone Richard Marshall DO Primary Care Provider [phone] Reason for Referral * Evaluate & Treat - Unlimited Visits (Within 3 days (urgent)) - Pending Review Specialty Diagnoses / Procedures Referred By Contac t Referred To Contact Radiation Oncology Diagnoses Adenocarcinoma, lung, left (HCC) Sav Olivia MD [address] [place] [address] JOSE CRUZ [place]ADLEY Referral ID Status Reason Start Date Expiration Date Visits Requested Visits Authorized [id number] Pending Review Specialty Services Required 03/31/[phone] Question Answer Referral Priority Within 3 days (urgent) Where should this appointment be scheduled? [facility] * Evaluate & Treat - Unlimited Visits (Within 3 days (urgent)) - Pending Review Specialty Diagnoses / Procedures Referred By Contac t Referred To Contact Hematology/Oncology / Hematology Oncology Diagnoses Adenocarcinoma, lung, left (HCC) Sav Olivia MD [address] [place] [address] [place]SE CRUZ [place] Referral ID Status Reason Start Date Expiration Date Visits Requested Visits Authorized [id number] Pending Review Specialty Services Required 03/31/[phone] Question Answer Referral Priority Within 3 days (urgent) Where should this appointment be scheduled? [facility] Reason for Referral Malignant Oncology (Solid Organ Cancer) Reason for Visit * Reason Comments Follow Up Return pulm. 1 year return. PET scan 03/29/24. Chest pain now in Left side pain radiates into her back under her ribs. And no energy. Less than 6 mo. Getting worse over last 2mo. Encounter Details Date Type Department Care Team (Late st Contact Info) Description 03/31/2024 7:40 AM EDT Office Visit Pulmonary Medicine, [facility] [address] [facility] [place] [address] Sav Olivia MD [address] [facility] [place] [address] Adenocarcinoma, lung, left (HCC)* Allergies Active Allergy Reactions Criticality Noted Date Comments Iodinated Contrast Media 07/05/2021 "itchy, rash and hives" CT Scan documented as of this encounter (statuses as of 03/31/2024) Medications Medication Sig Dispensed Refills Start Date [...] Respimat 2.5-2.5 MCG/ACT Inhalation Aerosol Solution (Tiotropium [place]-Olodaterol )Indications:COPD, severity to be determined (GRAND STRAND [...] as of this encounter (statuses as of 03/31/2024) Active Problems Problem Noted Date Diagnosed Date Dermatillomania in adult 03/03/2023 COPD, group A, by GOLD 2017 classification 07/07 Overview: Per COPD GOLD Classification Major depressive disorder, recurrent episode, mo derate 10/28/2021 KRYSTA (generalized anxiety disorder) 10/28/2021 History of tobacco abuse 07/09/2021 GERD (gastroesophageal reflux disease) Mood disorder 07/09/2021 documented as of this encounter (statuses as of 03/31/2024) Resolved Problems Problem Noted Date Diagnosed Date Resolved Date COPD, severity to be determined 07/09/2021 07/10/2022 Overview: Per COPD GOLD Classification documented as of this encounter (statuses as of 03/31/2024) Immunizations Name Administration Dates Next Due Covid-19 [...] Sign Reading Time Taken Comments Blood Pressure 110/80 03/31/2024 7:35 AM EDT Pulse 82 03/31/2024 7:35 AM EDT Temperature 35.7 C (96.3 F) 03/31/2024 7:35 AM ED T Respiratory Rate 16 03/31/2024 7:35 AM EDT Oxygen Saturation 97% 03/31/2024 7:37 AM EDT ra-amb Inhaled Oxygen Concentration - - Weight 74.8 kg (165 lb) 03/31/2024 7:35 AM EDT Height 162.6 cm (5' 4") 03/31/2024 7:35 AM EDT Body Mass Index 28.32 03/31/2024 7:35 AM EDT documented in this encounter Progress Notes * Sav Olivia MD - 03/31/2024 7:42 AM EDT 03/31/2024 Pulmonary Medicine, [facility] [address] [facility] [place] [id number] Lanny [place] 1965 female 59 year old Attending Physician Documentation: 59-year-old female, 35 pack-year smoking history quit 10 years ago, 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 Hx of prior pulmonary medicine and Lung Cancer care in [place]. Patient recently underwent screening protocol CT scan which showed new lung nodules. Follow-up PET scan revealed T2 lytic lesion along with high FDG uptake in lower paraesophageal region and scattered pulmonary nodules. Patient's main symptoms at present or significant back discomfort. Denies cough, wheezing, hemoptysis. Compliant with Stiolto inhaler, describes rare use of rescue albuterol. Maintaining steady weight and appetite. Denies cough, wheezing, hemoptysis, sick contacts, lower extremity edema, recent changes in weight or appetite. Current bronchodilator regimen includes Stiolto inhaler and rescue albuterol inhaler, rarely used. Physical examination significant for class 3 throat, clear lung bravo, regular cardiac rhythm, soft nontender abdomen, no lower extremity edema and nonlateralizing Neuro examination. DATA REVIEW: Since last evaluation: CT CHEST W CONTRAST DATE and TIME: 03/07/2024 HISTORY CLINICAL INFORMATION: CHEST PAIN UNSPECIFIED, SHORTNESS OF BREATH, MALIGNANT NEOPLASM OF UNSP PART OF LEFT BRONCHUS OR LUNG COMPARISON 05/04/2023 FINDINGS Lung Screening Specific (LungRADS): There are several new solid pulmonary nodules. For example, new1.9 x 1.6 centimeter solid pulmonary nodule in the left lower lobe on 10:197. Enlarging 10 millimeter solid pulmonary nodule in the left lower lobe on 10:244, previously 5 millimeters. Stable bilateral part solid and ground-glass densities. The largest is in the right upper lobe measuring 2.1 x 2.1cm on 10:48. Potentially Significant Incidentals (LungRADS Category S): None. MEDIASTINUM AND DOMINIQUE: New 2.2 centimeter posterior mediastinal lymph node at 10:187. CHEST SOFT TISSUES: Within normal limits. CHEST WALL: Within normal limits. AIRWAYS: Within normal limits LUNGS: right middle lobectomy. Wedge resection in the left lower lobe. Centrilobular emphysema IMPRESSION Several new or enlarging solid pulmonary nodules, metastasis not excluded. New enlarged posterior mediastinal lymph node PET CT SKULL BASE TO MID-THIGH FDG 03/29/2024 HISTORY Other nonspecific abnormal finding of lung field, Localized enlarged lymph node, personal history of malignant neoplasm of bronchus and lung FINDINGS Chest: *Centrilobular emphysema and dependent changes of [...] inferior endplate involvement of T2 vertebral body. PFT 12/2021 shows well-preserved ventilatory pattern without evidence of obstruction, restriction. Air trapping is noted. CT chest 03/2022 shows right upper lobe apical ground-glass changes as reported in historical films, post right middle lobe and left lower lobe lobectomy status noted. No effusions or lymphadenopathynoted. We will proceed with expedited Hematology Oncology and Radiation Oncology evaluation. GI revaluation for lower para esophageal uptake assessment requested. Patient recently underwent upper GI endoscopy with findings consistent with hiatal hernia. Pulmonary clinic follow-up in 2 months recommended. Patient was advised to contact the office with any change in symptoms status. 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 PFT 2021 - WNL CT Chest 03/2022 - post surgical Changes and RUL GG Changes Plan: Expedited Heme Oncology and Rad Oncology referral Agree with Optimized pain control as prescribed by PCP (likely from High T2 lytic lesion) GI Re eval requested for High FDG uptake Lower paraesophageal region (had recent UGI for Hiatal Hernia) Maintain Physical activity F/u 2 months Follow Up: Return in about 2 months (around 05/31/2024) for Clinic Visit. 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 PFT 2021 - WNL CT Chest 03/2022 - post surgical Changes and RUL GG Changes Follow Up: Return in about 2 months (around 05/31/2024) for Clinic Visit. | For: Clinic Visit | Check-out note: Plan: Expedited Heme Oncology and Rad Oncology referral Agree with Optimized pain control as prescribed by PCP (likely from High T2 lytic lesion) GI Re eval requested for High FDG uptake Lower paraesophageal region (had recent UGI for Hiatal Hernia) Maintain Physical activity F/u 2 months Sav Olivia MD Subjective CC: Chief Complaint Patient presents with Follow Up Return pulm. 1 year return. PET scan 03/29/24. Chest pain now in Left side pain radiates into her back under her ribs. And no energy. Less than 6 mo. Getting worse over last 2mo. HPI: Nursing Notes: Donna Dick LPN 03/31/24 0740 Signed Chief Complaint Patient presents with Follow Up Return pulm. 1 year return. PET scan 03/29/24. Interm History/Respiratory Symptoms Cough: no Hemoptysis: no Sinus Symptoms: no Hospitalizations: no ED Trips: no Triggers: no Nocturnal: sleeps with head elevated CPAP/BiPAP/O2: CPAP DME Supplier: [employer] Flu Vaccine: 2020 Pneumovax: none Prevnar: none COVID 19: X1. Travel Screening Question 03/31/2024 7:26 AM EDT - Filed by Patient Do you have any of the following new or worsening symptoms? None of these Have you recently been in contact with someone who was sick? No / Unsure Myc Visit Accident Related Question Question 03/31/2024 7:26 AM EDT - Filed by Patient Is this visit related to an accident? (i.e work, motor vehicle) No Mmrc Cat Question 03/31/2024 7:35 AM EDT - Filed by Donna Dick LPN When do you become breathless? (0) I only get breathless with strenuous exercise How frequently do you cough? (0) - I never cough Do you have phlegm in your chest? (0) - I have no phlegm (mucus) in my chest Is your chest tight? (1) How breathless do you become when walking up a hill or steps? (1) How limited are you doing activities at home? (2) How confident are you leaving home with your lung condition? (0) - I am confident leaving my home despite my condition How soundly do you sleep? (4) How much energy do you have? (5) - I have no energy at all Total MMRC Score (range: 0 - 4) 0 Total CAT Score (range: 0 - 40) 13 Objective Filed Vitals: 03/31/24 0735 03/31/24 0737 BP: 110/80 Pulse: 82 Resp: 16 Temp: 35.7 C (96.3 F) TempSrc: Tympanic SpO2: 96% 97% Weight: 74.8 kg (165 lb) Height: 1.626 m (5' 4") Exam: Const: No signs of acute distress present. Head/Face: Normal on inspection. Eyes: Conjunctivae clear. Pupils equal round and reactive to light. ENMT: Oropharynx: No erythema, exudate or masses. Posterior pharynx is normal. Neck: Supple and symmetric. Resp: Respiratory examination as outlined above CV: Rate is regular. Rhythm is regular. No heart murmur appreciated. Extremities: No edema of the lower limbs bilaterally. Skin: Skin is warm and dry. Neuro: Coordination normal. No involuntary movement. Psych: Patient's attitude is cooperative. Mood is normal. Affect is normal. Tests reviewed with the patient: PET CT SKULL BASE TO MID-THIGH FDG Result Date: 03/29/2024 IMPRESSION 1. Multiple hypermetabolic left lung pulmonary nodules near the resection line concerning for disease recurrence. Low level metabolic activity associated with predominantly ground-glass nodules in the right upper lobe. 2. Hypermetabolic left hilar and paraesophageal lymphadenopathy, leftcrural mass, and numerous hypermetabolic and predominantly lytic lesions throughout the axial/appendicular skeleton consistent with metastatic disease. 3. Pathologic inferior endplate involvement of T2 vertebral body. I have personally reviewed this examination and agree with the resident/fellow physician's interpretation. CT CHEST W CONTRAST Result Date: 03/08/2024 IMPRESSION Several new or enlarging solid pulmonary nodules, metastasis not excluded. New enlarged posterior mediastinal lymph node XR CHEST 2 VIEWS Result Date: 12/18/2023 IMPRESSION No acute cardiopulmonary disease. Available Radiologic data was reviewed by me in PACS. The images were shown to the patient and findings were discussed with the patient. HOME MEDICATIONS: oxyCODONE HCl 5 MG Oral Capsule (Oxy IR) Pantoprazole Sodium 40 MG Oral Tablet Delayed Release (Protonix) Ibuprofen 200 MG Oral Tablet (Motrin) traZODone HCl 50 MG Oral Tablet (Desyrel) Premarin 0.625 MG Oral Tablet CPAP Atorvastatin Calcium 40 MG Oral Tablet (Lipitor) Stiolto Respimat 2.5-2.5 MCG/ACT Inhalation Aerosol Solution (Tiotropium [place]-Olodaterol) Ferrous Sulfate 325 (65 Fe) MG Oral Tablet (Feosol) Vitamin D (Cholecalciferol) 50 MCG (2000 UT) Oral Capsule Albuterol Sulfate 108 (90 Base) MCG/ACT Inhalation Aerosol Powder Breath Activated DULoxetine HCl 30 MG Oral Capsule Delayed Release Particles (Cymbalta) clonazePAM 0.5 MG Oral Tablet (KlonoPIN) Premarin 0.625 MG/GM Vaginal Cream (Estrogens, Conjugated) Lidocaine 5 % External Patch (Lidoderm) bevaCIZumab (Avastin) inj 1.25 mg ROPivacaine (Naropin) inj 1.5 mg ROS: No reported history of Hemoptysis, Hematemesis, Melena No reported history of Dysuria, Hematuria, Flank Pain No reported history of chronic headache, seizures No reported history of Fall or trauma . No reported history of recent change in weight or appetite. 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 No mold [...] for ages 18 years and over): No Food Insecurity: No Food Insecurity (05/22/2023) Food Insecurity Do you need food for this week? (Adult - for ages 18 years and over): No Transportation Needs: No Transportation Needs (05/22/2023) Transportation Needs Do you have trouble getting a ride to medical visits or work? (Adult - for ages 18 years and over):Never True Social Connections: Socially Integrated (05/22/2023) Social Connections How often do you feel lonely or isolated from those around you? (Adult - for ages 18 years and over): Never Housing Stability: Low Risk (05/22/2023) Housing Stability Do you currently live in a chcf or have no steady place to sleep at night? (Adult - for ages 18 years and over): No Do you think you are at risk of becoming homeless? (Adult - for ages 18 years and over): No Family History Problem Relation Name Age of Onset Thyroid Disorder Mother Pancreatic cancer Mother No Known Problems Father Other (Pituitary tumor) Brother Tee No Known Problems Brother Nabor No Known Problems Brother Oren Diabetes Grandmother (Maternal) Breast Cancer No significant family history Review of patient's allergies indicates: Allergen Reactions Iodinated Contrast Media "itchy, rash and hives" CT Scan documented in this encounter Nursing Notes * Donna Dick LPN - 03/31/2024 7:37 AM EDT Chief Complaint Patient presents with Follow Up Return pulm. 1 year return. PET scan 03/29/24. Interm History/Respiratory Symptoms Cough: no Hemoptysis: no Sinus Symptoms: no Hospitalizations: no ED Trips: no Triggers: no Nocturnal: sleeps with head elevated CPAP/BiPAP/O2: CPAP DME Supplier: [employer] Flu Vaccine: 2020 Pneumovax: none Prevnar: none COVID 19: X1. Travel Screening Question 03/31/2024 7:26 AM EDT - Filed by Patient Do you have any of the following new or worsening symptoms? None of these Have you recently been in contact with someone who was sick? No / Unsure Myc Visit Accident Related Question Question 03/31/2024 7:26 AM EDT - Filed by Patient Is this visit related to an accident? (i.e work, motor vehicle) No Mmrc Cat Question 03/31/2024 7:35 AM EDT - Filed by Donna Dick LPN When do you become breathless? (0) I only get breathless with strenuous exercise How frequently do you cough? (0) - I never cough Do you have phlegm in your chest? (0) - I have no phlegm (mucus) in my chest Is your chest tight? (1) How breathless do you become when walking up a hill or steps? (1) How limited are you doing activities at home? (2) How confident are you leaving home with your lung condition? (0) - I am confident leaving my home despite my condition How soundly do you sleep? (4) How much energy do you have? (5) - I have no energy at all Total MMRC Score (range: 0 - 4) 0 Total CAT Score (range: 0 - 40) 13 documented in this encounter Plan of Treatment Upcoming Encounters Date Type Department Care Team (Late st Contact Info) Description 04/07/2024 10:30 AM EDT Imaging Radiology [facility] 1st Floor, [place] [address] [facility] [place] [address] 04/26/2024 8:30 AM EDT Office Visit Ophthalmology, [facility] [address] [facility] [place] [address] Anthony Grey, DO [address] [place] [address] 05/12/2024 9:30 AM EDT Office Visit General Surgery, [facility] 132 [place] [address] Thiago Parker MD [address] [place] [address] 06/15/2024 8:20 AM EST Office Visit Pulmonary Medicine, [facility] [address] [place] [address] Sav Olivia MD [address] [place] [address] 03/10/2025 10:00 AM EDT Office Visit Sleep Disorders Ctr [facility] 132 [place] [id number] Margie Gutierrez DO 132 [facility] [place] [address] Scheduled Referrals Name Type Priority Associated Diagnoses Orde r Schedule HEMATOLOGY/ONCOLOGY REFERRAL OP Referral Within 3 days (urgent) Adenocarcinoma, lung, left (HCC) Ordered: 03/31/2024 RADIATION/ONCOLOGY REFERRAL OP Referral Within 3 days (urgent) Adenocarcinoma, lung, left (HCC) Ordered: 03/31/2024 Health Maintenance Due Date Last Done Comments [...] 03/29/2024 , 03/07/2024, 05/04/2023, Additional history exists HPV (Gardasil) Vaccine Aged [...] as of this encounter Visit Diagnoses Diagnosis Adenocarcinoma, lung, left (HCC)- Primary documented in this encounter Care Teams Web Content Executive Relationship Specialty Start Date End Date Richard Marshall DO [address] [place] [id number] PCP - General Family Medicine 08/26/22 documented as of this encounter
--- OUTSIDE RECORDS SUMMARY | 2024-08-11 03:45 | External Medical Summary | Summary of Care ---
Author Name Unknown Organization [facility] Address [address] [facility] [place] [address] Phone [phone] Care Team Providers Care New Accounts Banking Representative Name Role Phone Richard Marshall DO Primary Care Provider [phone] Encounter Details Date Type Department Care Team (Late st Contact Info) Description 04/04/2024 Telephone Gastroenterology, [facility] [address] [place] [address] Edwina Mclaughlin MD [address] [place] [address] Allergies Active Allergy Reactions Criticality Noted Date [...] Respimat 2.5-2.5 MCG/ACT Inhalation Aerosol Solution (Tiotropium [place]-Olodaterol )Indications:COPD, severity to be determined (HCC) Inhale [...] Care Team (Latest Contact Info) Description 4 1:30 PM EDT Office Visit Hematology/Onco logy [facility] [address] [facility] [phone] Nicole Vinson MD [address] [facility] [place] [phone] 4 10:00 AM EDT Office Visit Radiation Oncology, [place] [address] [place] [address] Carmella Galindo MD [address] [place] [address] 4 9:00 AM EDT Imaging Radiology [address] [facility] [place] [address] 4 2:51 PM EDT Hospital Encounter OR GL, Operating Room, [facility] - 4th Floor [address] [place] [id number] Edwina Mclaughlin MD [address] [place] [address] 4 2:51 PM EDT - 4 3:29 PM EDT Surgery OR [facility], Operating Room, [facility] - 4th Floor [address] [place] [id number] Edwina Mclaughlin MD [address] [place] [address] ESOPHAGOGASTRODUODENOSCOPY (EGD), FLEXIBLE, TRANSORAL, ENDOSCOPIC ULTRASOUND 4 8:30 AM EDT Office Visit Ophthal[facility], [facility] [place] [address] Anthony Grey DO [address] [place] [address] 4 9:30 AM EDT Office Visit General Surgery, [facility] [address] [facility] [place] [address] Thiago Parker MD [address] [place] [address] 4 8:20 AM EST Office Visit Pulmonary Medicine, [facility] [address] [facility] [place] [address] Sav Olivia MD [address] [place] [address] 5 10:00 AM EDT Office Visit [facility] [address] [facility] [place] [phone] GutierrezMargie Elyssa, DO [address] [place] [address] Scheduled Orders Name Type Priority Associated Diagnoses Orde r Schedule US ENDOSCOPIC Medical Imaging Routine Abnormal PET scan of mediastinum Expected: 04/04/2024, Expires: 05/04/2025 Scheduled Procedures Name Priority Associated Diagnoses Date/Ti [...] as of this encounter Visit Diagnoses Diagnosis Abnormal PET scan of mediastinum- Primary Nonspecific abnormal results of pulmonary system function study Abnormal finding on imaging Other nonspecific (abnormal) findings on radiological and other examinations of body structure documented in this encounter Care Teams New Accounts Banking Representative Relationship Specialty Start Date End Date Richard Marshall DO [address] [place] [address] PCP - General Family Medicine 08/26/22 documented as of this encounter
--- OUTSIDE RECORDS SUMMARY | 2024-08-11 03:45 | External Medical Summary ---
Author Name Unknown Address Unknown Organization K01:[facility] [place] [facility] [address] [facility] Brianne. [place] [address] Laboratory Report Ordering Provider Test Date Status JOSEFINASUZANNEOBIJUAN MANUEL 04/04/2024 15:10:58 Final Rheumatoid factor at a level above 50 IU/mL may lead to an overestimation of the D-dimer level. A normal D-dimer result (<0.50 ug/mL FEU) has a negative predictive value of approximately 95% for the exclusion of acute pulmonary embolism (PE) or deep vein thrombosis when there is low or moderate pretest PE probability. Increased D-dimer values are abnormal but do not indicate a specific disease state and the D-dimer increase does not definitively correlate with clinical severity of disease. Observation Date Value Abnormality Reference (Units ) Status Fibrin D-dimer FEU [Mass/volume] in Platelet poor plasma by Immunoassay 04/04/2024 15:10:58 0.61 Above high normal <0.50 (ug/mL FEU) Final Performing Location [facility] [place] - [facility] [place] [address]
--- OUTSIDE RECORDS SUMMARY | 2024-08-11 03:45 | External Medical Summary ---
Author Name Unknown Address Unknown Organization K01:[facility] [address] [place] [address] Laboratory Report Ordering Provider Test Date Status EDD ROCHA 04/04/2024 15:10:58 Final Observation Date Value Abnormality Reference (Units ) Status CEA 04/04/2024 15:10:58 3.2 <=5.2 (ng/ mL) Final Performing Location [facility] - [address] [place] [address]
--- OUTSIDE RECORDS SUMMARY | 2024-08-11 03:45 | External Medical Summary ---
Author Name Unknown Address Unknown Organization K01:LABORATORY [facility] - [address] [facility] [address] [place] [address] Laboratory Report Ordering Provider Test Date Status EDD ROCHA 04/04/2024 15:10:58 Final Observation Date Value Abnormality Reference (Units ) Status Cancer Ag 19-9 04/04/2024 15:10:58 64.9 Above high norm al <35.0 (U/mL) Final Performing Location [facility] - [address] [place] [address]
--- OUTSIDE RECORDS SUMMARY | 2024-08-11 03:45 | External Medical Summary | Summary of Care ---
Author Name Unknown Organization [facility] Address [address] [facility] [address] Phone [phone] Care Team Providers Care Power Driven Brush Maker Name Role Phone Richard Marshall DO Primary Care Provider [phone] Encounter Details Date Type Department Care Team (Late st Contact Info) Description 04/04/2024 Telephone Hematology/Oncology [facility] Shereen [place] [address] [place] [address] Nicole Vinson MD 400 [facility] [place] [phone] Allergies Active Allergy Reactions Criticality Noted Date [...] Respimat 2.5-2.5 MCG/ACT Inhalation Aerosol Solution (Tiotropium [place]-Olodaterol )Indications:COPD, severity to be determined ([facility]) Inhale 2 Puffs by mouth daily. [...] No 05/22/2023 Does the household have a [employer] source of income? (Household - for ages [...] Orientation Straight 05/18/2023 8 :46 AM EDT Job Start Date Occupation Industry Not on file Not on file Not on file documented as of this encounter Miscellaneous Notes * Telephone Encounter - Tamiko Ray OSA - 04/04/2024 3:14 PM EDT wants this around 04/19 IR VENOUS ACCESS MEDIPORT [IRMEDIPORT] (Order [id number]) Lanny Andrews 04/04/2024 1:30 PM Office Visit Description: 59 year old female Provider: Nicole Vinson MD Department: HEM/ONC [place] Order Information Date and Time Department Ordering/Authorizing 04/04/2024 3:09 PM Hem/Onc Scenery Nicole Kwok MD Order Providers Authorizing Provider Encounter Provider ([id number]) Nicole Vinson MD ([id number]) Nicole Vinson MD Priority and Order Details Priority Class STAT OUTPATIENT PRECERT POOL Quantity Ordering Quantity 1 Collection Information Visit Disposition Dispositions Check-out Note Return in about 2 weeks (around 04/18/2024). Labs today Start Percocet 5/325 two tablets every 6 hours for pain control IR for biopsy AJ Follow up with me on 04/18/2024, also for consent. Mediport placement around 04/19-04/20/2024 Will plan to start chemo approximately around 04/21/2024. Chemo TBD (biopsy pending) Order Questions Question Answer Is this Procedure for Evaluation, Venous Access Insertion or Removal? Venous Access Insertion Mediport Type Single Lumen Reason for Procedure chemo Where Will The Procedure Be Performed? [facility] Referral (Pending Review) ID: [id number] Created on: 04/04/2024 Referred by Referred to Nicole Vinson MD Radiology Priority: Within 24 hrs (call dept; emergent) Type: Precert Visits Requested: 999 Decision Date: 04/04/2024 Start Date: 04/18/2024 Related Appointments None Associated Diagnoses Lung cancer metastatic to bone (HCC) [C34.90, C79.51] Precert Information documented in this encounter Plan of Treatment Upcoming Encounters Date Type Department Care Team (Latest Contact Info) Description 4 10:00 AM EDT Office Visit Radiation Oncology, [place] [address] [facility] [address] Carmella Galindo MD [address] [facility] [place] [address] 4 9:00 AM EDT Imaging Radiology [facility] [address] [address] 4 2:51 PM EDT Hospital Encounter OR [facility], Operating Room, [facility] - 4th Floor [address] [facility] [phone] Edwina Mclaughlin MD [address] [place] [address] 4 2:51 PM EDT - 4 3:29 PM EDT Surgery OR [facility], Operating Room, [facility] - 4th Floor 400 [facility] [place] [phone] Edwina Mclaughlin MD [address] [place] [address] ESOPHAGOGASTRODUODENOSCOPY (EGD), FLEXIBLE, TRANSORAL, ENDOSCOPIC ULTRASOUND 4 2:30 PM EDT Office Visit Hematology/Onco logy [facility] 200 [facility] [place] [phone] Nicole Vinson MD 400 [facility] [place] [phone] 4 8:30 AM EDT Office Visit Ophthalmology, [facility] 132 [facility] [place] [address] Anthony Grey DO [address] [place] [address] 4 9:30 AM EDT Office Visit General Surgery, [facility] 132 [facility] [place] [address] Thiago Parker MD [address] [place] [address] 4 8:20 AM EST Office Visit Pulmonary Medicine, [facility] 132 [facility] [place] [address] Sav Olivia MD [address] [place] [address] 10:00 AM EDT Office Visit Sleep Disorders Ctr [facility] [address] [place] [phone] Margie Gutierrez, [address] [place] [address] Scheduled Procedures Name Priority Associated Diagnoses Date/Ti [...] filedocumented as of this encounter Care Teams Power Driven Brush Maker Relationship Specialty Start Date End Date Richard Marshall DO [address] [place] [address] PCP - General Family Medicine 08/26/22 documented as of this encounter
--- OUTSIDE RECORDS SUMMARY | 2024-08-11 03:45 | External Medical Summary ---
Author Name Unknown Address Unknown Organization K01:LABORATORY C - [address] [place] [address] Laboratory Report Ordering Provider Test Date Status EDD ROCHA 04/04/2024 15:10:58 Final Observation Date Value Abnormality Reference (Units ) Status Hep C Ab 04/04/2024 15:10:58 Negative Negative Final Further HCV quantitative henrique ting not performed per protocol. Performing Location [facility] - [address] [place] [address]
--- OUTSIDE RECORDS SUMMARY | 2024-08-11 03:45 | External Medical Summary | Summary of Care ---
Author Name Unknown Organization [facility] Address [address] [place] [address] Phone [phone] Care Team Providers Care High Speed Warper Tender Name Role Phone Richard Marshall DO Primary Care Provider [phone] Reason for Referral * Precert (Within 10 days (routine)) - Pending Review Specialty Diagnoses / Procedures Referred By Contac t Referred To Contact Radiology Diagnoses Other nonspecific abnormal finding of lung field Localized enlarged lymph nodes Personal history of malignant neoplasm of bronchus and lung Procedures PET CT SKULL BASE TO MID-THIGH FDG Richard Marshall DO [address] [facility] [place] [address] Referral ID Status Reason Start Date Expiration Date V isits Requested Visits Authorized [id number] Pending Review 03/29/2024 999 999 Encounter Details Date Type Department Care Team (Late st Contact Info) Description 03/16/2024 Orders Only Access Center, [address] *DO NOT REMOVE THIS DEPARTMENT* [place] [address] Requisition, External Radiology [address] [place] [address] Other nonspecific abnormal finding of lung field*; Localized enlarged lymph nodes; Personal history of malignant neoplasm of bronchus and lung Allergies Active Allergy Reactions Criticality Noted Date Comments Iodinated Contrast Media 07/05/2021 "itchy, rash and hives" CT Scan documented as of this encounter (statuses as of 03/16/2024) Medications Medication Sig Dispensed Refills Start Date [...] Respimat 2.5-2.5 MCG/ACT Inhalation Aerosol Solution (Tiotropium [place]-Olodaterol )Indications:COPD, severity to be determined (HCC) Inhale [...] as of this encounter (statuses as of 03/16/2024) Active Problems Problem Noted Date Diagnosed Date Dermatillomania in adult 03/03/2023 COPD, group A, by GOLD 2017 classification 07/07 Overview: Per COPD GOLD Classification Major depressive disorder, recurrent episode, mo derate 10/28/2021 KRYSTA (generalized anxiety disorder) 10/28/2021 History of tobacco abuse 07/09/2021 GERD (gastroesophageal reflux disease) Mood disorder 07/09/2021 documented as of this encounter (statuses as of 03/16/2024) Resolved Problems Problem Noted Date Diagnosed Date Resolved Date COPD, severity to be determined 07/09/2021 07/10/2022 Overview: Per COPD GOLD Classification documented as of this encounter (statuses as of 03/16/2024) Immunizations Name Administration Dates Next Due Covid-19 [...] Description 03/23/2024 9:45 AM EDT Imaging Radiology [address] [place] [address] 03/29/2024 8:45 AM EDT Imaging Radiology [address] [place] [address] 03/29/2024 10:00 AM EDT Imaging Radiology [address], [address] [place] [address] 03/31/2024 7:40 AM EDT Office Visit Pulmonary Medicine, [address] [place] [address] Sav Olivia MD [address] [place] [address] 04/26/2024 8:30 AM EDT Office Visit Ophthalmology, [address] [place] [address] Anthony Grey, [address] [facility] [place] [address] 05/12/2024 9:30 AM EDT Office Visit General Surgery, [address] [place] [address] Thiago Parker MD [address] [place] [address] 03/10/2025 10:00 AM EDT Office Visit Sleep Disorders Ctr [address] [place] [phone] Margie Gutierrez, [address] [facility] [place] [address] Scheduled Orders Name Type Priority Associated Diagnoses Orde r Schedule PET CT SKULL BASE TO MID-THIGH FDG Medical Imaging Routine Other nonspecific abnormal finding of lung field Localized enlarged lymph nodes Personal history of malignant neoplasm of bronchus and lung Expected: 03/29/2024, Expires: 04/16/2025 Health Maintenance Due Date Last Done Comments [...] as of this encounter Visit Diagnoses Diagnosis Other nonspecific abnormal finding of lung field- Primary Localized enlarged lymph nodes Enlargement of lymph nodes Personal history of malignant neoplasm of bronchus and lung documented in this encounter Care Teams High Speed Warper Tender Relationship Specialty Start Date End Date Richard Marshall DO [address] [place] [address] PCP - General Family Medicine 08/26/22 documented as of this encounter
--- OUTSIDE RECORDS SUMMARY | 2024-08-11 03:45 | External Medical Summary ---
Author Name Unknown Address Unknown Organization K09:[facility]ORY [place] [address] Laboratory Report Ordering Provider Test Date Status EDD ROCHA 04/04/2024 15:10:58 Final Observation Date Value Abnormality Reference (Units ) Status WBC, Total 04/04/2024 15:10:58 10.14 4.00-10.8 0 (K/uL) Final RBC 04/04/2024 15:10:58 4.76 3.85-5.15 (M/uL) Final Hemoglobin 04/04/2024 15:10:58 14.1 12.0-15.3 (g/dL) Final HCT 04/04/2024 15:10:58 42.5 36.0-45.2 (%) Final MCV 04/04/2024 15:10:58 89.3 81.5-97.5 (fL) Final MCH 04/04/2024 15:10:58 29.6 27.0-34.0 (pg) Final MCHC 04/04/2024 15:10:58 33.2 32.0-36.0 (g/dL) Final RDW 04/04/2024 15:10:58 13.6 11.5-15.5 (%) Final Platelets 04/04/2024 15:10:58 405 Above high normal 14 0-400 (K/uL) Final MPV 04/04/2024 15:10:58 10.7 6.6-11.1 ( fL) Final Performing Location LAB[facility]ATORY [place] [address]
--- OUTSIDE RECORDS SUMMARY | 2024-08-11 03:45 | External Medical Summary | Summary of Care ---
Author Name Unknown Organization [facility] Address [address] [place] [address] Phone [phone] Care Team Providers Care Cash Teller Name Role Phone Richard Marshall DO Primary Care Provider [phone] Reason for Visit * Reason Onset Date Comments Scheduling 04/06/2024 Encounter Details Date Type Department Care Team (Late st Contact Info) Description 04/06/2024 Telephone Hematology/Oncology, [facility] 400 [place] [address] Nicole Vinson MD [address] [place] [phone] Scheduling Allergies Active Allergy Reactions Criticality Noted Date Comments Iodinated Contrast Media 07/05/2021 "itchy, rash and hives" CT Scan documented as of this encounter (statuses as of 04/06/2024) Medications Medication Sig Dispensed Refills Start Date [...] 2.5-2.5 MCG/ACT Inhalation Aerosol Solution (Tiotropium [place]-Olodaterol )Indications:COPD, severity to be determined (HCC) Inhale [...] as of this encounter (statuses as of 04/06/2024) Active Problems Problem Noted Date Diagnosed Date Dermatillomania in adult 03/03/2023 COPD, group A, by GOLD 2017 classification 07/07 Overview: Per COPD GOLD Classification Major depressive disorder, recurrent episode, mo derate 10/28/2021 KRYSTA (generalized anxiety disorder) 10/28/2021 History of tobacco abuse 07/09/2021 GERD (gastroesophageal reflux disease) Mood disorder 07/09/2021 documented as of this encounter (statuses as of 04/06/2024) Resolved Problems Problem Noted Date Diagnosed Date Resolved Date COPD, severity to be determined 07/09/2021 07/10/2022 Overview: Per COPD GOLD Classification documented as of this encounter (statuses as of 04/06/2024) Immunizations Name Administration Dates Next Due Covid-19 [...] No 05/22/2023 Does the household have a [facility] source of income? (Household - for ages [...] Miscellaneous Notes * Telephone Encounter - Marleni Rodgers OSA - 04/06/2024 10:03 AM EDT Spoke to patient to schedule the CT Left Iliac Pelvic Bone Biopsy for 04/13 at [facility]. The IR doctor wants to do the Mediport Insertion after the cytology is completed then we will call the patient to schedule the port placement Patient identified by: name Person taught: Patient METHOD: Lecture-telephone interview PATIENT INSTRUCTIONS GIVEN: - General Preoperative Instructions Reviewed - NPO Instructions Reviewed, pt to stop eating 8 hours prior to procedure and stop drinking 2 hoursprior to procedure. -Hat Trimmer required Location and check-in instructions Verbalizes understanding of education: Yes Procedure date at time of Imaging Encounter: 04/13 What procedure is patient having? CT Guided Left Iliac Pelvic Bone Biopsy Laterality confirmed as Left Does the patient have a yellow bar? did not The Patient was given the opportunity to ask questions concerning the procedure. Signature: WHIT Rubalcava 04/06/2024 documented in this encounter Plan of Treatment Upcoming Encounters Date Type Department Care Team (Latest Contact Info) Description 4 2:52 PM EDT Hospital Encounter OR [facility], Operating Room, [address] [place] [phone] Edwina Mclaughlin MD [address] [place] [address] 4 2:52 PM EDT - 4 3:30 PM EDT Surgery OR [facility], Operating Room, [address] [place] [phone] Edwina Mclaughlin MD [address] [place] [address] ESOPHAGOGASTRODUODENOSCOPY (EGD), FLEXIBLE, TRANSORAL, ENDOSCOPIC ULTRASOUND 4 9:00 AM EDT Hospital Encounter OR [facility], Operating Room, [address] [place] [address] [facility], In And Out Surgery [address] [place] [address] 4 9:00 AM EDT Appointment Radiology, [facility] [address] [place] [address] 4 9:00 AM EDT - 4 10:00 AM EDT Surgery OR [facility], Operating Room, [address] [place] [address] [facility], In And Out Surgery [address] [place] [address] PRE / POST CARE 4 2:30 PM EDT Office Visit Hematology/Onco logy [facility] [place] [address] [place] [phone] Nicole Vinson MD [address] [place] [phone] 4 8:30 AM EDT Office Visit Ophthalmology, [facility] 132 [facility] [place] [address] Anthony Grey DO 132 [facility] [place] [address] 4 9:30 AM EDT Office Visit General Surgery, [facility] 132 [facility] [place] [address] Thiago Parker MD [address] [place] [address] 4 8:20 AM EST Office Visit Pulmonary Medicine, [facility] 132 [facility] [place] [address] Sav Olivia MD [address] [place] [address] 5 10:00 AM EDT Office Visit Sleep Disorders [facility] 132 [facility] [place] [phone] Margie Gutierrez DO 132 [facility] [place] [address] Scheduled Procedures Name Priority Associated Diagnoses Date/Ti [...] 03/29/2024 , 03/07/2024, 05/04/2023, Additional history exists Hepatitis C Screening Completed 04/04/2024 , 04/04/2024, 04/04/2024 Influenza Vaccine (FLU shot) Completed 03/2024, 07/18/2021, [...] filedocumented as of this encounter Care Teams Cash Teller Relationship Specialty Start Date End Date Richard Marshall DO [address] [place], [place] [phone] PCP - General Family Medicine 08/26/22 documented as of this encounter
--- OUTSIDE RECORDS SUMMARY | 2024-08-11 03:45 | External Medical Summary | Summary of Care ---
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 [address] Referral ID Status Reason Start Date Expiration Date V isits Requested Visits Authorized [id number] Pending Review 04/18/[phone] Reason for Visit * Reason Onset Date Comments NEW PATIENT Medication Administration 04/04/2024 Flu an d/or Pneumo Inj * Evaluate & Treat - Unlimited Visits (Within 3 days (urgent)) - Pending Review Specialty Diagnoses / Procedures Referred By Contac t Referred To Contact Hematology/Oncology / Hematology Oncology Diagnoses Adenocarcinoma, lung, left (HCC) Sav [facility] [address] [facility] [address] [place] Referral ID Status Reason Start Date Expiration Date Visits Requested Visits Authorized [id number] Pending Review Specialty Services Required 03/31/[phone] Encounter Details Date Type Department Care Team (Late st Contact Info) Description 04/04/2024 1:30 PM EDT Office Visit Hematology/Oncology [place] [facility] Ledbetter [address] [facility] [place] [address] Nicole Vinson MD [address] [place] [address] [place] [phone] Need for prophylactic vaccination and inoculation against influenza*; 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) Allergies Active Allergy Reactions Criticality Noted Date Comments Iodinated Contrast Media 07/05/2021 "itchy, rash and hives" CT Scan documented as of this encounter (statuses as of 04/05/2024) Medications Medication Sig Dispensed Refills Start Date [...] Respimat 2.5-2.5 MCG/ACT Inhalation Aerosol Solution (Tiotropium Dazey-Olodaterol )Indications:COPD, severity to be determined (FORMERLY SPRINGS [...] as of this encounter (statuses as of 04/05/2024) Active Problems Problem Noted Date Diagnosed Date Dermatillomania in adult 03/03/2023 COPD, group A, by GOLD 2017 classification 07/07 Overview: Per COPD GOLD Classification Major depressive disorder, recurrent episode, mo derate 10/28/2021 KRYSTA (generalized anxiety disorder) 10/28/2021 History of tobacco abuse 07/09/2021 GERD (gastroesophageal reflux disease) Mood disorder 07/09/2021 documented as of this encounter (statuses as of 04/05/2024) Resolved Problems Problem Noted Date Diagnosed Date Resolved Date COPD, severity to be determined 07/09/2021 07/10/2022 Overview: Per COPD GOLD Classification documented as of this encounter (statuses as of 04/05/2024) Immunizations Name Administration Dates Next Due Covid-19 [...] Sign Reading Time Taken Comments Blood Pressure 122/83 04/04/2024 1:19 PM EDT Pulse 75 04/04/2024 1:19 PM EDT Temperature 36.6 C (97.9 F) 04/04/2024 1:19 PM ED T Respiratory Rate - - Oxygen Saturation 95% 04/04/2024 1:19 PM EDT Inhaled Oxygen Concentration - - Weight 74.8 kg (165 lb) 04/04/2024 1:19 PM EDT Height - - Body Mass Index 28.32 03/31/2024 7:35 AM EDT documented in this encounter Patient Instructions * Patient Instructions* Nicole Vinson MD - 04/04/2024 2:59 PM EDT ~~PATIENT INSTRUCTIONS FOR FLU SHOT~~ Possible side effects of influenza vaccine, (flu shot), are usually mild and include: 1. Soreness or redness at injection site 2. Low grade fever 3. Body aches You may use Tylenol/Acetaminophen as needed for these symptoms. LET YOUR DOCTOR KNOW IMMEDIATELY IF YOU HAVE DIFFICULTY BREATHING OR SWALLOWING, EXPERIENCE ITCHINGOF FEET OR HANDS, HAVE SWELLING OF EYES, FACE OR INSIDE OF NOSE. Labs today Start Percocet 5/325 two tablets every 6 hours for pain control IR for biopsy AJ Follow up with me on 04/18/2024, also for consent. Mediport placement around 04/19-04/20/2024 Will plan to start chemo approximately around 04/21/2024. Chemo TBD (biopsy pending) documented in this encounter Progress Notes * Brisa Levy CMA - 04/04/2024 2:58 PM EDT PRE - ADMINISTRATION DOCUMENTATION Are you experiencing any cold symptoms or fever? No Have you had Guillain-[place] Syndrome (an illness that causes paralysis) within the last 6 weeks? No Have you had the flu shot in the past? YES Have you ever had a reaction to the flu shot? No Brisa Levy CMA, 04/04/2024 2:58 PM Immunization Administration Documentation Time Out Procedure Performed: Yes Patient Identified (Ask Name/Date of ): Yes Does the patient have a fever greater than 101 degrees today? No Patient allergic to latex? No VFC Stock: Yes, Does this patient qualify for immunization through the [facility] program because he/she (check only one): Yes-is enrolled in Medicaid Immunization(s) verified: Yes, Immunization Name: Flu, VIS Sheet(s) given: Yes Verified Side and Site: Yes Verified Shot(s) with Parent(s)/Patient: Yes * Nicole Vinson MD - 04/04/2024 1:35 PM EDT Subjective Lanny Andrews is a 59 year old female presents on 04/04/2024 for Medical Oncology Consultation Chief Complaint Patient presents with NEW PATIENT Medication Administration Flu and/or Pneumo Inj Date of visit: 04/04/2024: Medical Oncology Consultation Reason for consult: Adenocarcinoma, lung, left (HCC) [C34.92] - Primary Referred by: Pulmonary Medicine, [facility], [place] NeSav MD (03/31/2024) History of Presenting Illness Lanny Andrews is a 59-year-old female, 35 pack-year smoking history quit 10 years ago,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 Stable bilateral partsolid and ground-glass densities. The largest nodule was seen in the right upper lobe measuring 2.1x 2.1 cm. In addition, a new 2.2 centimeter posterior mediastinal lymph node was seen. Evidence of previous right middle lobectomy and wedge resection in the left lower lobe as well as chronic stable centrilobular emphysema was seen. 03/29/2024: Follow-up PET scan revealed: FINDINGS Chest: *Centrilobular emphysema and dependent changes [...] endplate involvement of T2 vertebral body. 04/04/2024: Pt reports severe chest wall pain 8-9/10, worse [...] 2010, never biopsied, and is being monitored. Never received chemotherapy for the lung cancer. She was seen by pulopal, Dr. Olivia on 03/31/2024 when Hematology-Oncology and Radiation Oncology evaluation was requested. She has Radon consultation appt on 04/07/2024 at [facility], pt wants a closer (pref [place] radonc). GI revaluation for lower para esophageal uptake assessment requested. On 04/04/2024 Dr. Mclaughlin entered order for EUS with bx to be performed on 04/12/2024. 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 GERD, hiatal hernia- stable- recently underwent GI evaluation with fluoroscopic examiantion and upper GI endoscopy with findings consistent with hiatal hernia. WHIT, on CPAP Therapy. Reactive Airways Disease. [...] on 02/29/2024 ( dose #17), next due 04/2024. Family Hx is significant for Pancreatic cancer in her mother and Pituitary tumor in her Brother. Pt , lives with her . She lives about 30 miles away from this cancer center. PMH: Patient Active Problem List Diagnosis History of tobacco abuse GERD (gastroesophageal reflux disease) Mood disorder (HCC) Major depressive disorder, recurrent episode, moderate (HCC) KRYSTA (generalized anxiety disorder) COPD, group A, by GOLD 2017 classification (HCC) Dermatillomania in adult Current Outpatient Medications Medication Sig Dispense Refill oxyCODONE-Acetaminophen 5-325 MG Oral Tablet (Percocet) Take 1 Tablet by mouth every 6 hours as needed for Pain, Moderate. 90 Tablet 0 Vitamin D (Cholecalciferol) 50 MCG (2000 UT) Oral Capsule Take by mouth at bedtime. Ferrous Sulfate 325 (65 Fe) MG Oral Tablet (Feosol) Take 1 Tablet by mouth at bedtime. Lidocaine 5 % External Patch (Lidoderm) Place 1 Patch topically on the skin daily. 12 hrs on 12 hrsoff, as needed (Patient not taking: Reported on 01/18/2024) Stiolto Respimat 2.5-2.5 MCG/ACT Inhalation Aerosol Solution (Tiotropium Dazey-Olodaterol) Inhale2 Puffs by mouth daily. 12 g 3 Premarin 0.625 MG/GM Vaginal Cream (Estrogens, Conjugated) Administer into the vagina at bedtime . As directed. (Patient not taking: Reported on 01/27/2024) 42.5 g 5 Atorvastatin Calcium 40 MG Oral Tablet (Lipitor) TAKE 1 TABLET DAILY 90 Tablet 3 CPAP every night at bedtime . Premarin 0.625 MG Oral Tablet Take 1 Tablet by mouth at bedtime. clonazePAM 0.5 MG Oral Tablet (KlonoPIN) Take 1 Tablet by mouth daily as needed for Anxiety. (Patient not taking: Reported on 01/18/2024) 15 Tablet 1 DULoxetine HCl 30 MG Oral Capsule Delayed Release Particles (Cymbalta) Take 1 Capsule by mouth in the morning. (Patient not taking: Reported on 03/03/2024) 90 Capsule 0 traZODone HCl 50 MG [...] morning and evening meals. 60 Tablet 3 oxyCODONE HCl 5 MG Oral Capsule (Oxy IR) Take 1 Capsule by mouth every 6 hours as needed for Pain, Severe. Current Facility-Administered Medications Medication Dose Route Frequency Provider Last Rate Last Admin bevaCIZumab (Avastin) inj 1.25 mg 1.25 mg Intravitreal PRN Anthony Grey, DO 1.25 mg at 02/29/24 0852 ROPivacaine (Naropin) inj 1.5 mg 1.5 mg Injection PRN Anthony Grey, DO 1.5 mg at 02/29/24 0851 Review of patient's allergies indicates: Allergen Reactions Iodinated Contrast Media "itchy, rash and hives" CT Scan Objective BP 122/83 (BP Site: Left Arm, BP Position: Sitting, BP Cuff Size: Regular) | Pulse 75 | Temp 36.6 C (97.9 F) (Tympanic) | Wt 74.8 kg (165 lb) | SpO2 95% | BMI 28.32 kg/m | BSA 1.84 m ASSESSMENT/PLAN: Lanny Andrews is a 59-year-old female, who is currently a non- smoker, she has a 35 pack-year smoking history and has quit 10 years ago with a significant past medical history of recurrent spm-ikdmn-npwn lung cancer (adenocarcinoma) that has recurrent several times (>3 times per pt- received treatment in [facility]), status post multiple surgical interventions [...] posterior acetabulum measuring 1.2 cm, SUV 8.1. 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 - CBC WITH WBC DIFFERENTIAL; Future; Expected date: 04/04/2024 - COMPREHENSIVE METABOLIC PANEL; Future; Expected date: 04/04/2024 - LD; Future; Expected date: 04/04/2024 - D-DIMER; Future; Expected date: 04/04/2024 - CEA; Future; Expected date: 04/04/2024 - CA 19-9; Future; Expected date: 04/04/2024 - CA 27.29; Future; Expected date: 04/04/2024 - PT INR; Future; Expected date: 04/04/2024 - HEPATITIS C ANTIBODY SCREEN WITH PROGRESSION TO HEPATITIS C RNA QUANTITATIVE; Future; Expected date: 04/04/2024 - HEPATITIS B CORE ANTIBODIES IGG AND IGM; Future; Expected date: 04/11/2024 - IR BIOPSY - IR VENOUS ACCESS MEDIPORT; Future; Expected date: 04/18/2024 Other orders - SURGICAL PATHOLOGY; Standing PLAN OF CARE DISCUSSED WITH PATIENT ON 04/04/2024 : Will need histologic confirmation and further delineation of the cancer with tumor molecular and genetic testing. Very likely recurrent NSCLC due to her significant history, however, other sites of origin can not be ruled out (pancreatic/GI for example) Metastatic disease Palliative systemic therapy will be needed Zometa will be needed Plan to keep all your current appts (radonc [facility] and EUS for bx), however, EUS with biopsy may not be necessary if alternate site biopsy feasible with IR sooner. Pain management - increased pain medication to percocet 2 tabs po Q6 hours round the clock for the next 1-2 weeks, may use additional 5-10 mg oxycodone Q6 hours for breakthrough pain. ECHO in near future- evidence of pulm HTN on CT seen Follow-up: Return in about 2 weeks (around 04/18/2024). | Check-out note: Labs today Start Percocet 5/325 two tablets every 6 hours for pain control IR for biopsy AJ Follow up with me on 04/18/2024, also for consent. Mediport placement around 04/19-04/20/2024 Will plan to start chemo approximately around 04/21/2024. Chemo TBD (biopsy pending) Nicole Vinson MD documented in this encounter Nursing Notes * Adrianna Soto, MAGDALENO ASSIST - 04/04/2024 1:20 PM EDT Patient identifed by name and [...] it for you? ALREADY ACTIVE Filed Vitals: 04/04/24 1319 BP: 122/83 Pulse: 75 Temp: 36.6 C (97.9 F) TempSrc: Tympanic SpO2: 95% Weight: 74.8 kg (165 lb) Patient was instructed to not get up [...] 10:00 AM EDT Office Visit Radiation Oncology, [facility] [address] [place] [address] Carmella Galindo MD [address] [place] [address] 4 2:51 PM EDT Hospital Encounter OR [facility], Operating Room, [facility] - 4th Floor [address] [place] [id number] Edwina Mclaughlin MD [address] [place] [address] 4 2:51 PM EDT - 4 3:29 PM EDT Surgery OR [facility], Operating Room, [facility] - 4th Floor [address] [place] [address] Edwina Mclaughlin MD [address] [place] [address] ESOPHAGOGASTRODUODENOSCOPY (EGD), FLEXIBLE, TRANSORAL, ENDOSCOPIC ULTRASOUND 4 2:30 PM EDT Office Visit Hematology/Onco logy [address] [place] [address] [place] [phone] Nicole Vinson MD [address] [place] [address] 4 8:30 AM EDT Office Visit Ophthalmology, [facility] [address] [place] [address] Anthony Grey, DO [address] [place] [address] 4 9:30 AM EDT Office Visit General Surgery, [facility] [address] [place] [address] Thiago Parker MD [address] [place] [address] 4 8:20 AM EST Office Visit Pulmonary Medicine, [facility] [address] [place] [address] Sav Olivia MD [address] [place] [address] 5 10:00 AM EDT Office Visit Sleep Disorders [address] [place] [phone] Margie Gutierrez, [address] [place] [address] Pending Results Name Type Priority Associated Diagnoses Date /Time CA 27.29 Lab Routine 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) 04/04/2024 3:10 PM EDT Scheduled Orders Name Type Priority Associated Diagnoses Orde r Schedule CA 27.29 Lab Routine 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) Expected: 04/04/2024, Expires: 04/04/2025 IR BIOPSY Medical Imaging STAT 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) Ordered: 04/04/2024 IR VENOUS ACCESS MEDIPORT Medical Imaging STAT 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) Expected: 04/18/2024, Expires: 05/04/2025 Scheduled Procedures Name Priority Associated [...] Not on filedocumented as of this encounter Results * HEPATITIS B CORE ANTIBODIES IGG AND IGM (04/04/2024 3:10 PM EDT) Hepatitis B Core Antibodies IgG and IgM Negative Negative 04/05/2024 4:35 AM EDT LABORATORY [facility] Blood Venous blood specimen / Unknown Venipuncture / Unknown 04/04/2024 3:10 PM EDT 04/04/2024 3:10 PM EDT Nicole Vinson MD LAB BLOOD ORDERABLES LABORATORY [facility] [address] [place] [address] * PT INR (04/04/2024 3:10 PM EDT) Pathologist [facility] Prothrombin Time 12.7 11.6 - 15.2 seconds 04/04/2024 3:54 PM EDT [facility] 56-02 INR 1.0 0.8 - 1.2 04/04/2024 3:54 PM EDT LABORATORY [place] 56-02 Blood Venous blood specimen / Unknown Venipuncture / Unknown 04/04/2024 3:10 PM EDT 04/04/2024 3:10 PM EDT Narrative LAB[facility]ATORY [place] 56-02 - 04/04/2024 3:54 PM EDT Warfarin Therapy INR: 2.0-3.0 conventional anticoagulation INR: 2.5-3.5 high intensity anticoagulation Nicole Vinson MD LAB BLOOD ORDERABLES [facility] 56-[address] [place] [address] * (ABNORMAL) CA 19-9 (04/04/2024 3:10 PM EDT) CA 19-9 64.9(H) <35.0 U/mL 04/05/2024 7:08 AM EDT LABORATORY [facility] Blood Venous blood specimen / Unknown Venipuncture / Unknown 04/04/2024 3:10 PM EDT 04/04/2024 3:10 PM EDT Nicole Vinson MD LAB BLOOD ORDERABLES Performing Organization Address City/[facility]/ZIP Co de Phone Number LABORATORY [facility] [address] [place] [address] * CEA (04/04/2024 3:10 PM EDT) Pathologist [facility] CEA 3.2 <=5.2 ng/mL 04/05/2024 6:25 AM EDT LABORATORY [facility] Blood Venous blood specimen / Unknown Venipuncture / Unknown 04/04/2024 3:10 PM EDT 04/04/2024 3:10 PM EDT Nicole Vinson MD LAB BLOOD ORDERABLES Performing Organization Address [facility] de Phone Number LABORATORY [address] [address] * (ABNORMAL) D-DIMER (04/04/2024 3:10 PM EDT) [facility] D-Dimer 0.61(H) <0.50 ug/mL FEU 04/04/2024 11:03 PM EDT LABORATORY [facility] Blood Venous blood specimen / Unknown Venipuncture / Unknown 04/04/2024 3:10 PM EDT 04/04/2024 3:10 PM EDT Narrative LABORATORY [facility] - 04/04/2024 11:03 PM EDT Rheumatoid factor at a level above 50 [...] definitively correlate with clinical severity of disease. Nicole Vinson MD LAB BLOOD ORDERABLES LABORATORY [facility] [address] [place] [address] * (ABNORMAL) LD (04/04/2024 3:10 PM EDT) [facility] LD 311(H) <=250 U/L 04/05/2024 6:11 AM EDT LABORATORY [facility] Blood Venous blood specimen / Unknown Venipuncture / Unknown 04/04/2024 3:10 PM EDT 04/04/2024 3:10 PM EDT Nicole Vinson MD LAB BLOOD ORDERABLES LAB[facility]ATORY [facility] [address] [place] [address] * COMPREHENSIVE METABOLIC PANEL (04/04/2024 3:10 PM EDT) [facility] BUN 17 6 - 20 mg/dL 04/04/2024 3:46 PM EDT [place] [address] Creatinine 0.6 0.5 - 1.0 mg/dL 04/04/2024 3:46 PM EDT [place] [address] Estimated Glomerular Filtration Rate >90 >=60 mL/min 04/04/2024 3:46 PM EDT [facility] Comment:eGFR is calculated b ased on the CKD-EPI 2020 equation. Sodium 137 135 - 146 mmol/L 04/04/2024 3:46 PM EDT [facility] 56- Potassium 4.1 3.5 - 5.1 mmol/L 04/04/2024 3:46 PM EDT [facility] 56- Chloride 101 98 - 107 mmol/L 04/04/2024 3:46 PM EDT [facility] 56- CO2 27 22 - 32 mmol/L 04/04/2024 3:46 PM EDT [facility] 56- Anion Gap 9 7 - 15 mmol/L 04/04/2024 3:46 PM EDT [facility] 56- Glucose 104 70 - 120 mg/dL 04/04/2024 3:46 PM EDT [place] [address]- Albumin 4.5 3.8 - 5.0 g/dL 04/04/2024 3:46 PM EDT [facility] 56- AST 23 10 - 35 U/L 04/04/2024 3:46 PM EDT [place] [address]- Alkaline Phosphatase 125 35 - 130 U/L 04/04/2024 3:46 PM EDT [place] [address]- Bilirubin, Total 0.6 <=1.2 mg/dL 04/04/2024 3:46 PM EDT [place] [address]- Calcium 9.6 8.4 - 10.2 mg/dL 04/04/2024 3:46 PM EDT [place] [address]- Protein 7.7 6.0 - 8.3 g/dL 04/04/2024 3:46 PM EDT [place] [address]- ALT 17 10 - 35 U/L 04/04/2024 3:46 PM EDT [address] Blood Venous blood specimen / Unknown Venipuncture / Unknown 04/04/2024 3:10 PM EDT 04/04/2024 3:10 PM EDT Nicole Vinson MD LAB BLOOD ORDERABLES [facility] [address]- [address] [place] [address] documented in this encounter Visit Diagnoses Diagnosis Need for prophylactic vaccination and inoculation against influenza- Primary 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
--- OUTSIDE RECORDS SUMMARY | 2024-08-11 03:45 | External Medical Summary ---
Author Name Unknown Address Unknown Organization K09:LABORATORY [address] [place] [address] Laboratory Report Ordering Provider Test Date Status EDD ROCHA 04/04/2024 15:10:58 Final Observation Date Value Abnormality Reference (Units ) Status BUN 04/04/2024 15:10:58 17 6-20 (mg/dL) Final Creatinine 04/04/2024 15:10:58 0.6 0.5-1.0 (mg/dL) Final Glomerular filtration rate/1.73 sq M.predicted [Volume Rate/Area] in Serum, Plasma or Blood by Creatinine-based formula (CKD-EPI) 04/04/2024 15:10:58 >90 >=60 (mL/min) Final eGFR is calculated based on the CKD-EPI 2020 equation. Sodium 04/04/2024 15:10:58 137 135-146 (m mol/L) Final Potassium 04/04/2024 15:10:58 4.1 3.5-5.1 (m mol/L) Final Cl 04/04/2024 15:10:58 101 98-107 (mm ol/L) Final CO2 04/04/2024 15:10:58 27 22-32 (mmo l/L) Final Anion gap 04/04/2024 15:10:58 9 7-15 (mmol /L) Final Glucose 04/04/2024 15:10:58 104 70-120 (mg /dL) Final Albumin 04/04/2024 15:10:58 4.5 3.8-5.0 (g /dL) Final AST (Aspartate aminotransferase) 04/04/2024 15:10:58 23 10-35 (U/L) Final Alk Phos 04/04/2024 15:10:58 125 35-130 (U/ L) Final Bilirubin, Total 04/04/2024 15:10:58 0.6 <=1 .2 (mg/dL) Final Calcium 04/04/2024 15:10:58 9.6 8.4-10.2 ( mg/dL) Final Protein 04/04/2024 15:10:58 7.7 6.0-8.3 (g /dL) Final ALT (Alanine aminotransferase) 04/04/2024 15:10:58 17 10-35 (U/L) Final Performing Location LABORATORY [facility] 56- 02 [address] [place] [address]
--- OUTSIDE RECORDS SUMMARY | 2024-08-11 03:45 | External Medical Summary ---
Author Name Unknown Address Unknown Organization K01:LABORATORY [facility] - [address] [place] [address] Laboratory Report Ordering Provider Test Date Status JOSEFINASUZANNEOBIJUAN MANUEL 04/04/2024 15:10:58 Final Observation Date Value Abnormality Reference (Units ) Status Hepatitis B virus core Ab [Presence] in Serum 04/04/2024 15:10:58 Negative Negative Final Performing Location LABORATORY C - [address] [place] [address]
--- OUTSIDE RECORDS SUMMARY | 2024-08-11 03:45 | External Medical Summary | Summary of Care ---
Author Name Unknown Organization [facility] Address [address] [place] [address] Phone [phone] Care Team Providers Care Color Printer Operator Name Role Phone Richard Marshall DO Primary Care Provider + [phone] Encounter Details Date Type Department Care Team (Late st Contact Info) Description 04/04/2024 Documentation Hematology Oncology [facility] ([facility] [address] [place] [address] [facility] Office Hem Onc [address] [place] [address] Allergies Active Allergy Reactions Criticality Noted Date [...] Respimat 2.5-2.5 MCG/ACT Inhalation Aerosol Solution (Tiotropium [place]-Olodaterol )Indications:COPD, severity to be determined (HCC) Inhale [...] as of this encounter Miscellaneous Notes * Research Note - Mana Tucker RN - 04/04/2024 9:46 AM EDT At the request of [facility] Rad/Onc, this patient has been screened for possible clinical trials options for their diagnosis. There are no clinical trials available at this time for this patient due to patient being seen by med/onc in [facility]. No trials currently open. Patient screened by Mana Tucker RN, BSN,CRC II Oncology Clinical Research Coordinator II [facility] [place] Department of Hematology-Oncology Research [facility] [phone] . documented in this encounter Plan of Treatment Upcoming Encounters Date Type Department Care Team (Latest Contact Info) Description 4 1:30 PM EDT Office Visit Hematology/Onco logy [facility]la Regan [place] [facility] [address] Nicole Vinson MD [address] [place] [address] [place] [phone] 4 10:00 AM EDT Office Visit Radiation Oncology, [place] [address] [place] [address] Carmella Galindo MD [address] [facility] [place] [address] 4 9:00 AM EDT Imaging Radiology [facility] 1st [facility] [address] [place] [address] 4 2:51 PM EDT Hospital Encounter OR [facility], Operating Room, [facility] - 4th Floor [address] [place] [phone] Edwina Mclaughlin MD [address] [place] [address] 4 2:51 PM EDT - 4 3:29 PM EDT Surgery OR [facility], Operating Room, [facility] Floor [address] [place] [phone] Edwina Mclaughlin MD [address] [place] [address] ESOPHAGOGASTRODUODENOSCOPY (EGD), FLEXIBLE, TRANSORAL, ENDOSCOPIC ULTRASOUND 4 8:30 AM EDT Office Visit Ophthalmology, [facility] [address] [place] [address] Anthony Grey DO [address] [place] [address] 4 9:30 AM EDT Office Visit General Surgery, [facility] [address] [place] [address] Thiago Parker MD [address] [place] [address] 4 8:20 AM EST Office Visit Pulmonary Medicine, [facility] [address] [facility] [address] Sav Olivia MD [address] [place] [address] 5 10:00 AM EDT Office Visit [facility] [address] [facility] [place] [address] Margie Gutierrez DO [address] [facility] [address] Scheduled Procedures Name Priority Associated Diagnoses Date/Ti [...] filedocumented as of this encounter Care Teams Color Printer Operator Relationship Specialty Start Date End Date Richard Marshall DO [address] [place] [address] PCP - General Family Medicine 08/26/22 documented as of this encounter
--- OUTSIDE RECORDS SUMMARY | 2024-08-11 03:45 | External Medical Summary | Summary of Care ---
Author Name Unknown Organization [facility] Address [address] [facility] [place] [address] Phone [phone] Care Team Providers Care Cell Phone Repair Technician Name Role Phone Richard Marshall DO Primary Care Provider [phone] Encounter Details Date Type Department Care Team (Late st Contact Info) Description 04/04/2024 Telephone Hematology/Oncology, [facility] 400 [facility] [place] [id number] Nicole Vinson MD [address] [place] [phone] Allergies Active Allergy Reactions Criticality Noted Date [...] Respimat 2.5-2.5 MCG/ACT Inhalation Aerosol Solution (Tiotropium [place]-Olodaterol )Indications:COPD, severity to be determined (HCC) Inhale [...] No 05/22/2023 Does the household have a [facility] source of income? (Household - for ages [...] Encounter - Tamiko Ray OSA - 04/04/2024 3:[address] catie mayers IR BIOPSY [IRBIOPSY] (Order [id number]) Lanny Khang Julinaa 04/04/2024 1:30 PM Office Visit Description: 59 year old female Provider: Nicole Vinson MD Department: HEM/ONC [place] Order Information Date and Time Department Ordering/Authorizing 04/04/2024 3:07 PM Hem/Onc Scenery Nicole Kwok MD Order Providers Authorizing Provider Encounter Provider ([id number]) Nicole Vinson MD ([id number]) Nicole Vinson MD Priority and Order Details Priority Class STAT To Radiology Quantity Ordering Quantity 1 Collection Information Visit Disposition Dispositions Check-out Note Return in about 2 weeks (around 04/18/2024). Labs today Start Percocet 5/325 two tablets every 6 hours for pain control IR for biopsy AJ Follow up with me on 04/18/2024, also for consent. Mediport placement around 04/19-04/20/2024 Will plan to start chemo approximately around 04/21/2024. Chemo TBD (biopsy pending) Comments Urgent Order Questions Question Answer Reason for Procedure Biopsy, left rib/pleura/ left clavicle Where Will The Procedure Be Performed[facility] Associated Diagnoses Lung cancer metastatic to bone (HCC) [C34.90, C79.51] Encounter View Encounter Reprint Requisition IR BIOPSY (Order #[id number]) on 04/04/24 Detailed Information documented in this encounter Plan of Treatment Upcoming Encounters Date Type Department Care Team (Latest Contact Info) Description 4 10:00 AM EDT Office Visit Radiation Oncology, [place] [address] [place] [address] Carmella Galindo MD [address] [place] [address] 4 9:00 AM EDT Imaging Radiology [facility] 1st [facility] [address] [place] [address] 4 2:51 PM EDT Hospital Encounter [place], Operating Room, [facility] - 4th Floor [address] [place], [place] [address] [phone] Edwina Mclaughlin MD [address] [place] [address] 4 2:51 PM EDT - 4 3:29 PM EDT Surgery OR [facility], Operating Room, [facility] - 4th Floor [address] [place] [phone] Edwina Mclaughlin MD [address] [place] [address] ESOPHAGOGASTRODUODENOSCOPY (EGD), FLEXIBLE, TRANSORAL, ENDOSCOPIC ULTRASOUND 4 2:30 PM EDT Office Visit Hematology/Onco logy Karla Regan [place] 200 [facility] [place] [address] Nicole Vinson MD [address] [place] [phone] 4 8:30 AM EDT Office Visit Ophthalmology, [facility] 132 [facility] [place] [address] Anthony Grey DO 132 [facility] [place] [address] 4 9:30 AM EDT Office Visit General Surgery, [facility] 132 [facility] [place] [address] Thiago Parker MD [address] [place] [address] 4 8:20 AM EST Office Visit Pulmonary Medicine, [facility] 132 [facility] [place] [address] Sav Olivia MD [address] [place] [phone] 5 10:00 AM EDT Office Visit Sleep Disorders Ctr [facility] 132 [facility] [place] [place] [phone] Zahira Gutierrezy Elyssa, [address] [place] [address] Scheduled Procedures Name Priority Associated Diagnoses Date/Ti [...] filedocumented as of this encounter Care Teams Cell Phone Repair Technician Relationship Specialty Start Date End Date Richard Marshall DO [address] [place] [address] PCP - General Family Medicine 08/26/22 documented as of this encounter
--- OUTSIDE RECORDS SUMMARY | 2024-08-11 03:45 | External Medical Summary ---
Author Name Unknown Address Unknown Organization : Laboratory Report Ordering Provider Test Date Status EDD ROCHA 04/04/2024 15:10:58 Final Observation Date Value Abnormality Reference (Units ) Status Cancer Ag -04/04/2024 15:10:58 21 <38 (U/mL) Final This test was performed usin g the Siemens chemilumi-
nescent method. Values obtained from different assay
methods cannot be used interchangeably. CA27.29
levels, regardless of value, should not be interpreted
as absolute evidence of the presence or absence of
disease.

Test Performed at:
[facility]
[address] [facility] [place] [address]
David Urban M.D., Ph.D.,Director of Laboratories Performing Location
--- OUTSIDE RECORDS SUMMARY | 2024-08-11 03:45 | External Medical Summary ---
Author Name Unknown Address Unknown Organization K01:[facility] [address] [place] [address] Laboratory Report Ordering Provider Test Date Status EDD ROCHA 04/04/2024 15:10:58 Final Observation Date Value Abnormality Reference (Units ) Status LDH 04/04/2024 15:10:58 311 Above high normal <= 250 (U/L) Final Performing Location [facility] [address] [place] [address]
--- OUTSIDE RECORDS SUMMARY | 2024-08-11 03:46 | External Medical Summary | Summary of Care ---
Author Name Unknown Organization [facility] Address [address] [place] [address] Phone [phone] Care Team Providers Care Partner Cco Name Role Phone Richard Marshall DO Primary Care Provider [phone] Reason for Visit * Reason Onset Date Comments Advice 03/10/2024 Re: Ct Chest res ults Encounter Details Date Type Department Care Team (Late st Contact Info) Description 03/10/2024 Telephone Pulmonary Medicine, [facility] 132 [facility] [place] [address] Services, Scheduling [address] [place] [address] Advice (Re: Ct Chest results) Allergies Active [...] Respimat 2.5-2.5 MCG/ACT Inhalation Aerosol Solution (Tiotropium [place]-Olodaterol )Indications:COPD, severity to be determined (HCC) Inhale [...] call Mayra at Dr. Marshall's offer at [phone]. Thank you [facility] Scheduling Services documented in this encounter Plan of Treatment Upcoming Encounters Date Type Department Care Team (Late st Contact Info) Description 03/22/2024 8:20 AM EDT Office Visit Pulmonary Medicine, [address] [place] [address] Sav Olivia MD [address] [place] [address] 03/22/2024 2:45 PM EDT Imaging Radiology [address] [place] [address] 03/22/2024 4:00 PM EDT Imaging Radiology [address] [place] [address] 03/23/2024 9:45 AM EDT Imaging Radiology [address], [address] [place] [address] 04/26/2024 8:30 AM EDT Office Visit Ophthalmology, [address] [place] [address] Anthony Grey DO [address] [place] [address] 05/12/2024 9:30 AM EDT Office Visit General Surgery, [facility] [address] [place] [address] Thiago Parker MD [address] [place] [address] 03/10/2025 10:00 AM EDT Office Visit Sleep Disorders Ctr [facility] 132 [facility] [place] [phone] Margie Gutierrez, DO [address] [place] [address] Health Maintenance Due Date Last Done Comments [...] filedocumented as of this encounter Care Teams Partner Cco Relationship Specialty Start Date End Date Richard Marshall DO [address] [place] [address] PCP - General Family Medicine 08/26/22 documented as of this encounter
--- OUTSIDE RECORDS SUMMARY | 2024-08-11 03:46 | External Medical Summary | Summary of Care ---
Author Name Unknown Organization [facility] Address [address] [place] [address] Phone [phone] Care Team Providers Care Prepress Specialist Name Role Phone Richard Marshall DO Primary Care Provider Reason for Referral * Ancillary Services (Within 30 days (routine)) - Pending Review Specialty Diagnoses / Procedures Referred By Constance molina Referred To Contact Gastroenterology Diagnoses Gastroesophageal reflux disease without esophagitis Thiago Parker MD [address] [place] [address] Referral ID Status Reason Start Date Expiration Date Visits Requested Visits Authorized [id number] Pending Review Ancillary Services Required 03/03/2024 [id number] Question Answer Referral Priority Within 30 days (routine) Where should this appointment be scheduled? [facility] Comments [facility] 48 hours off meds Upper Endoscopy ASGE Guidelines Upper abdominal symptoms that persist despite an appropriate trial of therapy ADDITIONAL INFORMATION 1. Is the patient on Coumadin? No 2. Is the patient on Pradaxa? No Reason for Visit * Reason Comments NEW PATIENT Diaphragmatic hernia * Evaluate & Treat - Unlimited Visits (Within 10 days (routine)) - Pending Review Specialty Diagnoses / Procedures Referred By Constance molina Referred To Contact General Surgery Diagnoses Diaphragmatic hernia without obstruction and without gangrene Richard Marshall DO [address] [place] [address] Luiza Allison MD [address] [place] [address] Referral ID Status Reason Start Date Expiration Date Visits Requested Visits Authorized [id number] Pending Review Specialty Services Required 02/04/[phone] Encounter Details Date Type Department Care Team (Late st Contact Info) Description 03/03/2024 12:30 PM EDT Office Visit General Surgery, [facility] [address] [place] [address] Thiago Parker MD [address] [place] [address] Post-thoracotomy pain syndrome*; Gastroesophageal reflux disease without esophagitis Allergies Active Allergy Reactions Criticality Noted Date Comments Iodinated Contrast Media 07/05/2021 "itchy, rash and hives" CT Scan documented as of this encounter (statuses as of 03/03/2024) Medications Medication Sig Dispensed Refills Start Date [...] Respimat 2.5-2.5 MCG/ACT Inhalation Aerosol Solution (Tiotropium Check-Olodaterol )Indications:COPD, severity to be determined (HCC) Inhale [...] mouth at bedtime. 180 Tablet 08/14/2023 Active Additional Information Patient not taking.Reported on 03/03/2024 Albuterol Sulfate 108 (90 Base) MCG/ACT Inhalation [...] as of this encounter (statuses as of 03/03/2024) Active Problems Problem Noted Date Diagnosed Date Dermatillomania in adult 03/03/2023 COPD, group A, by GOLD 2017 classification 07/07 Overview: Per COPD GOLD Classification Major depressive disorder, recurrent episode, mo derate 10/28/2021 KRYSTA (generalized anxiety disorder) 10/28/2021 History of tobacco abuse 07/09/2021 GERD (gastroesophageal reflux disease) Mood disorder 07/09/2021 documented as of this encounter (statuses as of 03/03/2024) Resolved Problems Problem Noted Date Diagnosed Date Resolved Date COPD, severity to be determined 07/09/2021 07/10/2022 Overview: Per COPD GOLD Classification documented as of this encounter (statuses as of 03/03/2024) Immunizations Name Administration Dates Next Due Covid-19 Ad26, Single Dose (Jeffrey/J&J) 021 Seasonal Influenza, PF, 6 M & above, IM , (FluLaval or Fluzone) 07/18/2021 documented as of this encounter Social History Tobacco Use Types Packs/Day Years Used Date Smoking Tobacco: Former Cigarettes 1 35 1 985 - 2019 Smokeless Tobacco: Never Tobacco Cessation:Counseling Given: Not Answered Alcohol Use Standard Drinks/Week Comments Yes 0 (1 standard drink = 0.6 oz pur e alcohol) occasional Hunger Vital Sign Answer Date Recorded Within the past 12 months, y ou worried that your food would run out before you got the money to buy more. Never true 05/22/20 Within the past 12 months, t he food you bought just didn't last and you didn't have money to get more. Never true 05/22/2023 Sex and Gender Information Value Date Recorded Sex Assigned at Female 05/18/2023 8:46 AM EDT Gender Identity Female 05/18/2023 8:46 AM EDT Sexual Orientation Straight 05/18/2023 8: 46 AM EDT Job Start Date Occupation Industry Not on file Not on file Not on file documented as of this encounter Last Filed Vital Signs Vital Sign Reading Time Taken Comments Blood Pressure 133/78 03/03/2024 12:25 PM EDT Pulse 74 03/03/2024 12:25 PM EDT Temperature 36.5 C (97.7 F) 03/03/2024 12:25 PM E DT Respiratory Rate - - Oxygen Saturation - - Inhaled Oxygen Concentration - - Weight 77.8 kg (171 lb 8 oz) 03/03/2024 12:25 PM EDT Height - - Body Mass Index 29.44 01/18/2024 11:37 AM EDT documented in this encounter Progress Notes * Thiago Parker MD - 03/03/2024 12:30 PM EDT Images from the original note were not included. [facility]" AT [facility] CLINIC VISIT 03/02/2024 Lanny Andrews [id number] 59 year old PCP: Richard D Marshall, DO Consult requested by: Yousif Granger MD CC: Lanny Andrews comes to see me in [facility] complaining of refractory gastroesophageal reflux disease. HPI: This patient has suffered from (Associated Signs and Symptoms) Regurgitation and Chest pain. These have been present for about 1 year (Duration). Symptoms also include: Heartburn Score: 1 - Minimal - episodic no ongoing treatment Gas Bloat Score: 1 - mild, episodic Dysphagia Score: 1 - less than or equal to once per week Regurgitation Score: 2 - moderate - positional (bending over or lying down, etc) Nausea/Vomiting Score: 0 - none Diarrhea: 0 - none Extra-esophageal Manifestations: Chronic sore throat or mouth: 0 - no symptoms Ear pain: 1 - mild symptoms Sinusitis: 0 - no symptoms Hallitosis: 0 - no symptoms Poor dentition: 0 - no symptoms Reflux Symptom Index Evaluation (0-5): Hoarseness or problem with voice: 0 Throat Clearin Excess throat mucus/post-nasal drip: 1 Difficulty swallowing food, liquid, pills: 1 Coughing after eating or lying down: 4 Breathing difficulties or choking episodes: 4 Troublesome or annoying cough: 2 Globus sensation: 0 Heartburn, chest pain, indigestion, or stomach acid coming up: 5 RSI Total Score: 17 GERD-HRQL Evaluation (0-5) Global heartburn severity: 3 Supine heartburn: 3 Upright heartburn: 2 Post-parandial heartburn: 2 Does heartburn require dietary modification? 0 Does heartburn awaken from sleep? 2 Difficulty swallowin Pain with swallowin Feelings of gassiness or bloatin Impact of taking medication on daily life:2 GERD-HRQL score: 16 QOLRAD completed: yes Does this patient have a suspected or established diagnosis of Achalasia? No Burping or belching YES, Normally Additionally, she experiences Dyspnea with exertion and early satiety. Most recently, She has been taking (Modifying Factor) Protonix BID for 2 months. These medications have resulted in no change. In the past, she has taken Prilosec for GERD symptoms. He stopped takingthis because stopped being effective. Is this patient on PPI therapy and using supplemental Calcium citrate? YES The symptoms improve when she NONE Risk factors for GERD include Alcohol use Hiatal hernia DIETARY HISTORY: Regular diet This patient denies any history of Dry cough, Dyspnea at rest, Dyspnea with exertion, Hematemesis, Hematochezia, Hemoptysis, Jaundice, Melena, Isaac colored or light stools, Tea colored or dark urine,Productive cough, Sputum, Wheezing, Pain in the, diarrhea, constipation, unexpected weight loss, anorexia, exertional chest pain, and chest pain at rest. Previous DIAGNOSTIC TESTS include the followin01/27/2024: Upper GI endoscopy Indications: Heartburn Providers: Yousif Granger MD (Doctor) Findings & Specimens: A large hiatal hernia was present. The entire examined stomach was normal. The examined duodenum was normal. Impression: - Large hiatal hernia. - Normal stomach. - Normal examined duodenum. - No specimens collected. 05/04/2023: LUNG SCREENING CT THORAX (LOW DOSE) WITHOUT CONTRAST FINDINGS: Lung Screening Specific (LungRADS): Stable bilateral part solid and ground-glass densities. The largest is in the right upper lobe measuring 2.1 x 2.1 cm on image 34 series 10. Potentially Significant Incidentals (LungRADS Category S): None. THYROID:Within normal limits. THORACIC AORTA: No aneurysm. CORONARY ARTERIES: No calcification. MAIN PULMONARY ARTERY: Normal sized. HEART: No pericardial effusion. ESOPHAGUS: Within normal limits. MEDIASTINUM AND DOMINIQUE: Within normal limits. CHEST SOFT TISSUES: Within normal limits. CHEST WALL: Within normal limits. AIRWAYS: Within normal limits LUNGS: right middle lobectomy. Wedge resection in the left lower lobe. Centrilobular emphysema UPPER ABDOMEN:Within normal limits. IMPRESSION IMPRESSION: Stable bilateral nodules Current Outpatient Medications Medication Sig Dispense Refill Vitamin D (Cholecalciferol) 50 MCG (1999 UT) Oral Capsule Take by mouth at bedtime. Ferrous Sulfate 325 (65 Fe) MG Oral Tablet (Feosol) Take 1 Tablet by mouth at bedtime. Stiolto Respimat 2.5-2.5 MCG/ACT Inhalation Aerosol Solution (Tiotropium Check-Olodaterol) Inhale2 Puffs by mouth daily. 12 g 3 Atorvastatin Calcium 40 MG Oral Tablet (Lipitor) TAKE 1 TABLET DAILY 90 Tablet 3 CPAP every night at bedtime . Premarin 0.625 MG Oral Tablet Take 1 Tablet by mouth at bedtime. Ibuprofen 200 MG Oral Tablet (Motrin) Take 4 Tablets by mouth every 8 hours as needed. Pantoprazole Sodium 40 MG Oral Tablet Delayed Release (Protonix) Take 1 Tablet by mouth 2 times a day 30 minutes before morning and evening meals. 60 Tablet 3 Lidocaine 5 % External Patch (Lidoderm) Place 1 Patch topically on the skin daily. 12 hrs on 12 hrsoff, as needed (Patient not taking: Reported on 01/18/2024) Premarin 0.625 MG/GM Vaginal Cream (Estrogens, Conjugated) Administer into the vagina at bedtime . As directed. (Patient not taking: Reported on 01/27/2024) 42.5 g 5 clonazePAM 0.5 MG Oral Tablet (KlonoPIN) Take [...] Take 2 Tablets by mouth at bedtime. (Patient not taking: Reported on 03/03/2024) 180 Tablet 0 Albuterol Sulfate 108 (90 Base) MCG/ACT Inhalation Aerosol Powder Breath Activated Inhale by mouth every 4 hours as needed. (Patient not taking: Reported on 01/18/2024) Current Facility-Administered Medications Medication Dose Route Frequency Provider Last Rate Last Admin bevaCIZumab (Avastin) inj 1.25 mg 1.25 mg Intravitreal PRN Anthony Grey, DO 1.25 mg at 02/29/24 0852 ROPivacaine (Naropin) inj 1.5 mg 1.5 mg Injection PRN Anthony Grey DO 1.5 mg at 02/29/24 0851 Allergies as of 03/03/2024 - Reviewed 03/03/2024 Allergen Reaction Noted Iodinated contrast media 07/05/2021 Past Medical History: Diagnosis Date Carpal tunnel [...] FLEXIBLE, TRANSORAL, DIAGNOSTIC [facility] END[facility] INJECTION OF EYE DRUG Right 07/05/2021 # [...] Plaque seed radiation OD history; 3 months Psychosocial Psychosocial Impairment NO History Depression Moderate, accompanied by some impairment, may require treatment Confirmed Mental Health Diagnosis NO History EtOH Use currently less than 2 drinks per month Tobacco Use Quit 2019 Substance Abuse None 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 None Does not experience ... hives or skin sensitivity, fevers, chills, unexplained weight loss/gain rashes/itching, change in hair or nails, changes in vision/double vision, change in hearing or ear pain, dizziness, frequent nosebleeds, postnasal drip, chronic sore throat, hoarseness, dysarthria, TIA/St roke, temporary blindness, extremity paresthesia, weakness or paralysis, significant headaches, seizures, chest pain at rest, exertional chest pain, heart racing/arrhythmia, productive cough, hemoptysis, melanic stool, hematechezia, change in stool caliber, hematemesis, hematuria, dysuria, musculoskeletal pain, anxiety, depression, memory problems, change in mood, diabetes mellitus, thryoid disorders, adrenal disorders, increased appetite or thirst, excessive sweating, blood clotting abnormalities, h/o deep venous thrombosis or pulmonary embolism, and easy bruising or bleeding PHYSICAL EXAM: Blood pressure 133/78, pulse 74, temperature 36.5 C (97.7 F), weight 77.8 kg (171 lb 8 oz), notcurrently ., Body mass index is 29.44 kg/m. General: Alert and appropriate. Well-appearing and in no distress Skin: Warm, dry, anicteric Lymphatics: No neither Axillary nor Supraclavicular nor Cervical nor Infraclavicular nor Inguinal nor Umbilical adenopathy HEENT: PERRLA, EOMI, Sclera clear, anicteric, Oropharynx clear, no lesions, Neck supple with midline trachea, and Thyroid without masses Chest/Lungs: Clear Auscultation, No Wheezes, No dullness to percussions, and Chest Wall without masses Scars include Thoracotomy BILATERAL Breast: No Not examined Cardiovascular: Cor RRR and No murmurs Abdomen: No Distention, No Hernias, No Masses, No Organomegaly, No Tenderness, and Wounds well healed Scars include None Rectal/Genital: Not examined Neurologic: No motor abnormalities, No sensory abnormalities, and Cranial Nerves intact Musculoskeletal: Normal ROM and Normal strength and tone Extremities: Warm and well perfused, No cyanosis, No clubbing, and No edema ECOG Performance Status (0) Fully active, able to carry on all predisease performance without restriction Currently lives independently at home Impression: 1) GERD- Patient has regurgitation and chest pain. The regurgitation is likely secondary to GERD, however it is unclear if the chest pain is associated with GERD or post thoracotomy symptoms. 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 She underwent a lung resection via bilateral thoracotomy in 2019. Pain is not improved with high dose PPI and is more consistent with pain syndrome. Consider pain management. Our PLAN is to Recommend the following ... Refrain from ... Alcohol use Medications should include ... Protonix Do not eat within two hours of bedtime or sleeping Wear loose-fitting clothing Schedule to following diagnostic tests UGI- Done need images from [facility] esophageal pH study- ordered Esophageal manometry- deferred until the [facility] results. Path Review: None The following surgical procedure(s)which has/have been scheduled for - Defer for further testing Laparoscopy, Esophageal Fundoplication; The following, risks, complications, have been discussed with the patient who seems to understand and agrees to proceed. They are contingent on the safety of the primary surgery as listed above. Portia/Paraesophageal Hernia: Relevant treatment options (medical, endoscopic, and surgical) have been discussed with the patient. The purpose, potential benefits and risks of anti-reflux/hiatal hernia surgery have been extensively discussed with the patient no promises or guarantees have been given regarding improvement or resolution of the patient's symptoms. The following risks have all been addressed with the patient and all questions have been answered at this time: Potential for conversion to open operation Bleeding possibly requiring tranfusion or return to the operating room Infections of the: wounds, bloodstream, abdominal cavity, or pneumonias Esophageal, gastric injury, injury to adjacent structures including spleen (including remote potential for splenectomy) due to trocar placement or surgical manipulation, possibly requiring return to the operating room Vagal nerve injury potentially leading to various gastrointestinal symptoms including nausea, poor stomach emptying, diarrhea, and bloating Potential need for complex procedures in the event that complicated pathology is encountered (i.e. gastroplasty) Post-fundoplication side effects including bloating, diarrhea, inability to vomit, inability to belch or decreased ability to belch, dysphagia requiring endoscopic or surgical treatment. In rare circumstances, post-operative symptoms do not have a readily identifiable cause and can thus be difficult to manage Acute gastric distention after surgery potentially requiring naso-gastric tube placement or gastrostomy tube placement Failure to resolve symptoms and potential for future recurrence of symptoms possibly requiring re-operation Recurrence of Hiatal Hernia/Para-esophageal Hernia, or development of a new hiatal hernia Indication for use and risks associated with prosthetics (biological and non- biologic) including erosion and infection Potential life threatening complications including deep vein thrombosis, pulmonary embolism, myocardial infarction or other serious heart related complication, serious pulmonary complications including pneumothorax, stroke, up to and including related to surgery. The patient voices understanding and all questions have been answered to the patient's satisfaction. Preoperative PROVEN RECOVERY Pathway Instructions and Plan: 1) Diet: Patient should drink a 20-24 oz sports drink the evening before surgery. 2) Medications: Follow instruction from preadmission testing visit. 3) Following prescriptions will be given at preop visit. Acetaminophen Zofran 4) Myesha-operative multi-modal pain Control to include: Order APAP (Tylenol) 975mg PO once Celecoxib (Celebrex) 400mg PO once (Do not use if GFR less than 60, ASA Allergy, or if using Ketorolac) Gabapentin as indicated 5) Hold anticoagulants: N/A. 6) PreOp EKG? Yes age >45 7) VTE Risk: Does the patient have any of the following contraindications to VTE Prophylaxis? No contraindications to VTE prophylaxis 8) DVT/PE Risk; The patient has each of the following risk factors: Surgery (anticipated equal to or greater than 2 hours). How many VTE risk factors are present? 0-2 VTE Risk Factors (No indication for extended VTE prophylaxis) 9) If NO contraindications to VTE Prophylaxis then will plan on Lovenox 30 mg prior to Surgery and Knee High SCD's 10) Order Preop DVT Prophylaxis: Knee high teds, SCD Stockings with teds, and Enoxaparin 30 mg subcutaneously on arrival to hospital 11) Order Preop Antibiotics: Ancef 2 gm IV to be infused within one hour of incision time. 12) Is the patient on a Beta Minerva? No 13) Order Perioperative Stress Dose Steroids: NO 14) Order Perioperative SBE prophylaxis (See Smart Set #[id number]): NO 15) Pacemaker clinic evaluation perioperatively: NO 16) Bring own CPAP/BiPAP mask and tubing from home if desired: NO 17) Clip and prep surgical site: NO 18) Preop orders placed in EPIC with H&P: NO 19) Pre-anesthesia orders placed: NO 20) Consent completed: NO 21) Patient instruction sheet completed: NO 22) Is the patient being considered for Ambulatory Surgery (Same Day Discharge)? No. Thiago Parker MD, FACS, [facility] Drapery Supervisor [facility] Minimally Invasive/ Bariatric Surgery Fellowship documented in this encounter Nursing Notes * Anjana Torres LPN - 03/03/2024 12:26 PM EDT Patient identified by name and date of . Chief Complaint Patient presents with NEW PATIENT Diaphragmatic hernia Pt has had issues with hernia for approx 2-3 months. Pt stating that it used to be in her epigastric area, now its constant in the left side behind the chest, presents today with pain 8/10. Presents with , gwendolyn. documented in this encounter Plan of Treatment Upcoming Encounters Date Type Department Care Team (Late st Contact Info) Description 03/10/2024 10:00 AM EDT Office Visit [facility] [address] [place] [phone] Margie Gutierrez DO [address] [place] [id number] 04/26/2024 8:30 AM EDT Office Visit Ophthalmology, [facility] [address] [place] [id number] Anthony Grey DO [address] [place] [id number] 05/12/2024 9:30 AM EDT Office Visit General Surgery, [facility] [address] [place] [id number] Thiago Parker MD [address] [place] [address] Scheduled Orders Name Type Priority Associated Diagnoses Orde r Schedule ESOPH FUNCT/REFLUX TEST,MUCOSAL PH Procedures Routine Gastroesophageal reflux disease without esophagitis Ordered: 03/03/2024 Scheduled Referrals Name Type Priority Associated Diagnoses Orde r Schedule UPPER ENDOSCOPY GI REFERRAL OP Referral Within 30 days (routine) Gastroesophageal reflux disease without esophagitis Ordered: 03/03/2024 Health Maintenance Due Date Last Done Comments [...] Antitrypsin Completed 10/09/2021 Lung Cancer Screening Completed 05/04/2023 , 04/01/2022 HPV (Gardasil) Vaccine Aged Out No [...] as of this encounter Visit Diagnoses Diagnosis Post-thoracotomy pain syndrome- Primary Acute post-thoracotomy pain Gastroesophageal reflux disease without esophagitis Esophageal reflux documented in this encounter Care Teams Prepress Specialist Relationship Specialty Start Date End Date Richard Marshall DO [address] [place] [address] PCP - General Family Medicine 08/26/22 documented as of this encounter
--- OUTSIDE RECORDS SUMMARY | 2024-08-11 03:46 | External Medical Summary | Summary of Care ---
Author Name Unknown Organization [facility] Address [address] [facility] [place] [address] Phone [phone] Care Team Providers Care Parallel Computing Software Engineer Name Role Phone Richard Marshall DO Primary Care Provider [phone] Reason for Visit * Reason Comments Follow Up Encounter Details Date Type Department Care Team (Late st Contact Info) Description 03/10/2024 10:00 AM EDT Office Visit Sleep Disorders Ctr [facility] [address] [place] [phone] Margie Gutierrez DO [address] [place] [address] Obstructive sleep apnea* Allergies Active Allergy Reactions Criticality Noted Date Comments Iodinated Contrast Media 07/05/2021 "itchy, rash and hives" CT Scan documented as of this encounter (statuses as of 03/11/2024) Medications Medication Sig Dispensed Refills Start Date [...] Respimat 2.5-2.5 MCG/ACT Inhalation Aerosol Solution (Tiotropium [place]-Olodaterol )Indications:COPD, severity to be determined ([facility]) Inhale 2 Puffs by mouth daily. [...] as of this encounter (statuses as of 03/11/2024) Active Problems Problem Noted Date Diagnosed Date Dermatillomania in adult 03/03/2023 COPD, group A, by GOLD 2017 classification 07/07 Overview: Per COPD GOLD Classification Major depressive disorder, recurrent episode, mo derate 10/28/2021 KRYSTA (generalized anxiety disorder) 10/28/2021 History of tobacco abuse 07/09/2021 GERD (gastroesophageal reflux disease) Mood disorder 07/09/2021 documented as of this encounter (statuses as of 03/11/2024) Resolved Problems Problem Noted Date Diagnosed Date Resolved Date COPD, severity to be determined 07/09/2021 07/10/2022 Overview: Per COPD GOLD Classification documented as of this encounter (statuses as of 03/11/2024) Immunizations Name Administration Dates Next Due Covid-19 [...] Sign Reading Time Taken Comments Blood Pressure 106/68 03/10/2024 9:53 AM EDT Pulse 67 03/10/2024 9:53 AM EDT Temperature 36.3 C (97.4 F) 03/10/2024 9:53 AM ED T Respiratory Rate 16 03/10/2024 9:53 AM EDT Oxygen Saturation 93% 03/10/2024 9:53 AM EDT ra, rest Inhaled Oxygen Concentration - - Weight 78.2 kg (172 lb 6.4 oz) 03/10/2024 9:53 A M EDT Height 162.6 cm (5' 4") 03/10/2024 9:53 AM EDT Body Mass Index 29.59 03/10/2024 9:53 AM EDT documented in this encounter Progress Notes * Margie Gutierrez, - 03/10/2024 10:33 AM EDT Sleep Medicine Follow-Up HISTORY: Lanny Andrews is a 59 year old female for follow up of WHIT. Prior PSG 12/02/2015: TST 297 min. No REM sleep. AHI 3 (CMS criteria). "no significant nocturnal hypoxemia." PLMI 4.2. Initially seen by me 08/02/21 with loud snoring, hx witnessed apneas, excessive fatigue, occasional RLS sxs. [place] 5, FOSQ 38. PSG 11/20/21: AHI 10.9, no hypoxemia, PLMI 39.9, PLMAI 18.7. At last appt 03/09/23, she reported bothersome mask leak, awakening her most nights. Using CPAP 7-20 cmH2O. Mask is still sometimes leaking at night, but not as often. Not sure if it's waking her up now. Seems to leak at the end of her nose. F30i -- looks like right size, but still leaks at front of nose. Pressures feel comfortable. Sometimes feels moisture in her nose. Not getting condensation in tubing. Subjective PAP adherence: good Sleep refreshing on PAP: mostly yes Snoring on PAP: no Daytime sleepiness: occasional Daytime napping: sometimes, more in the past couple weeks after a medication change Drowsy driving: no Interface: lower-profile FFM (F30i) Mask leak: yes Dry nose or dry mouth: sometimes dry mouth from mouth-breathing Use humidifier? yes Aerophagia: no (but has sxs of hiatal hernia) Recent weight change: no [place] Sleepiness Scale: 6 Travel Screening Question 03/10/2024 9:47 AM EDT - Filed by Patient Do you have any of the following new or worsening symptoms? None of these Have you recently been in contact with someone who was sick? No / Unsure [place] Sleepiness Scale Question 03/10/2024 9:56 AM EDT - Filed by Sandy Chavez LPN What is the chance you will doze off in the following situation? Sitting and reading No chance of dozing Watching TV Slight chance of dozing Sitting inactive in a public place, such as a theater or meeting No chance of dozing As a passenger in a car for an hour without a break Slight chance of dozing Lying down to rest in the afternoon when circumstances permit High chance of dozing When sitting and talking to someone No chance of dozing When sitting quietly after lunch without alcohol Slight chance of dozing In a car, while stopped for a few minutes in traffic No chance of dozing Score (range: 0 - 24) 6 CPAP Compliance: Report date: 03/02/24 % total days used: 97% % days used > 4 hours: 93% Average hours per day used: 6h 30m Large leak: no AHI: 0.7 /hr Median pressure: 9 cmH2O 95%ile pressure: 11.1 cmH2O Pressure settin-20 cmH2O Equipment: DME Provider is [employer] Uses a AirSense 11. Additional changes in health in the interim of care: Started oxycodone for pain. Patient Active Problem List Diagnosis History of tobacco abuse GERD (gastroesophageal reflux disease) Mood disorder ([facility]) Major depressive disorder, recurrent episode, moderate ([facility]) KRYSTA (generalized anxiety disorder) COPD, group A, by GOLD 2017 classification ([facility]) Dermatillomania in adult Current Outpatient Medications Medication Sig Dispense Refill oxyCODONE HCl 5 MG Oral Capsule (Oxy IR) Take 1 Capsule by mouth every 6 hours as needed for Pain, Severe. Pantoprazole Sodium 40 MG Oral Tablet Delayed Release (Protonix) Take 1 Tablet by mouth 2 times a day 30 minutes before morning and evening meals. 60 Tablet 3 Ibuprofen 200 MG Oral Tablet (Motrin) Take 4 Tablets by mouth every 8 hours as needed. traZODone HCl 50 MG Oral Tablet (Desyrel) Take 2 Tablets by mouth at bedtime. 180 Tablet 0 Premarin 0.625 MG Oral Tablet Take 1 Tablet by mouth at bedtime. CPAP every night at bedtime . Atorvastatin Calcium 40 MG Oral Tablet (Lipitor) TAKE 1 TABLET DAILY 90 Tablet 3 Stiolto Respimat 2.5-2.5 MCG/ACT Inhalation Aerosol Solution (Tiotropium [place]-Olodaterol) Inhale2 Puffs by mouth daily. 12 g 3 Ferrous Sulfate 325 (65 Fe) MG Oral Tablet (Feosol) Take 1 Tablet by mouth at bedtime. Vitamin D (Cholecalciferol) 50 MCG (2000 UT) Oral Capsule Take by mouth at bedtime. Albuterol Sulfate 108 (90 Base) MCG/ACT Inhalation Aerosol Powder Breath Activated Inhale by mouth every 4 hours as needed. (Patient not taking: Reported on 01/18/2024) DULoxetine HCl 30 MG Oral Capsule Delayed Release Particles (Cymbalta) Take 1 Capsule by mouth in the morning. (Patient not taking: Reported on 03/03/2024) 90 Capsule 0 clonazePAM 0.5 MG Oral Tablet (KlonoPIN) Take 1 Tablet by mouth daily as needed for Anxiety. (Patient not taking: Reported on 01/18/2024) 15 Tablet 1 Premarin 0.625 MG/GM Vaginal Cream (Estrogens, Conjugated) Administer into the vagina at bedtime . As directed. (Patient not taking: Reported on 01/27/2024) 42.5 g 5 Lidocaine 5 % External Patch (Lidoderm) Place 1 Patch topically on the skin daily. 12 hrs on 12 hrsoff, as needed (Patient not taking: Reported on 01/18/2024) Current Facility-Administered Medications Medication Dose Route Frequency Provider Last Rate Last Admin bevaCIZumab (Avastin) inj 1.25 mg 1.25 mg Intravitreal PRN Anthony Grey, DO 1.25 mg at 02/29/24 0852 ROPivacaine (Naropin) inj 1.5 mg 1.5 mg Injection PRN Anthony Grey, DO 1.5 mg at 02/29/24 0851 She had tried reducing trazodone to 1 tab, but in the setting of increased pain, went back up to 2 tabs. PHYSICAL EXAM: Filed Vitals: 03/10/24 0953 BP: 106/68 Pulse: 67 Resp: 16 Temp: 36.3 C (97.4 F) TempSrc: Tympanic SpO2: 93% Weight: 78.2 kg (172 lb 6.4 oz) Height: 1.626 m (5' 4") Body mass index is 29.59 kg/m. General: alert, no acute distress Head: NC/AT Lungs: normal respiratory effort Neuro: speech clear and appropriate ASSESSMENT/PLAN: Obstructive sleep apnea - good adherence; encourage continued use of CPAP with all sleep - good efficacy of therapy; continue PAP at current setting 7-20 cmH2O - mask fitting for [employer]ear full face, due to bothersome leak with current style. - DME: [employer] - Routine cleaning and change of supplies as needed. - Continue to avoid driving when feeling sleepy/drowsy. Follow-up with Sleep Medicine in 1 year. Margie Gutierrez DO documented in this encounter Nursing Notes * Snady Chavez LPN - 03/10/2024 9:48 AM EDT Pt is here for f/u WHIT on CPAP. DME - [employer] [place] Sleepiness Scale Question 03/10/2024 9:56 AM EDT - Filed by Sandy Chavez LPN What is the chance you will doze off in the following situation? Sitting and reading No chance of dozing Watching TV Slight chance of dozing Sitting inactive in a public place, such as a theater or meeting No chance of dozing As a passenger in a car for an hour without a break Slight chance of dozing Lying down to rest in the afternoon when circumstances permit High chance of dozing When sitting and talking to someone No chance of dozing When sitting quietly after lunch without alcohol Slight chance of dozing In a car, while stopped for a few minutes in traffic No chance of dozing Score (range: 0 - 24) 6 documented in this encounter Plan of Treatment Upcoming Encounters Date Type Department Care Team (Late st Contact Info) Description 03/22/2024 8:20 AM EDT Office Visit Pulmonary Medicine, [facility] 132 [facility] [place] [address] Sav Olivia MD [address] [facility] [place] [address] 03/23/2024 9:45 AM EDT Imaging Radiology [facility] 1st Floor, [place] [address] [facility] [place] [address] 04/26/2024 8:30 AM EDT Office Visit Ophthalmology, [facility] [address] [facility] [place] [address] Anthony Grey, 132 [facility] [place] [address] 05/12/2024 9:30 AM EDT Office Visit General Surgery, [facility] 132 [facility] [place] [address] Thiago Parker MD [address] [place] [address] 03/10/2025 10:00 AM EDT Office Visit Sleep Disorders Ctr [facility] [address] [facility] [place] [phone] Margie Gutierrez DO 132 [facility] [place] [address] Health Maintenance Due Date Last Done Comments [...] as of this encounter Visit Diagnoses Diagnosis Obstructive sleep apnea- Primary Obstructive sleep apnea (adult) (pediatric) documented in this encounter Care Teams Parallel Computing Software Engineer Relationship Specialty Start Date End Date Richard Marshall DO [address] [place] [address] PCP - General Family Medicine 08/26/22 documented as of this encounter
--- OUTSIDE RECORDS SUMMARY | 2024-08-11 03:46 | External Medical Summary | Summary of Care ---
Author Name Unknown Organization [facility] Address [address] [place] [address] Phone [phone] Care Team Providers Care Fur Operator Name Role Phone Richard Marshlal DO Primary Care Provider [phone] Reason for Visit * Reason Onset Date Comments Advice 03/10/2024 Encounter Details Date Type Department Care Team (Late st Contact Info) Description 03/10/2024 Telephone Pulmonary Medicine, [facility] 132 [facility] [place] [address] Services, Scheduling [address] [place] [address] Advice Allergies Active Allergy Reactions Criticality Noted Date Comments Iodinated Contrast Media 07/05/2021 "itchy, rash and hives" CT Scan documented as of this encounter (statuses as of 03/10/2024) Medications Medication Sig Dispensed Refills Start Date [...] Respimat 2.5-2.5 MCG/ACT Inhalation Aerosol Solution (Tiotropium [place]-Olodaterol )Indications:COPD, severity to be determined (HCC) Inhale [...] as of this encounter (statuses as of 03/10/2024) Active Problems Problem Noted Date Diagnosed Date Dermatillomania in adult 03/03/2023 COPD, group A, by GOLD 2017 classification 07/07 Overview: Per COPD GOLD Classification Major depressive disorder, recurrent episode, mo derate 10/28/2021 KRYSTA (generalized anxiety disorder) 10/28/2021 History of tobacco abuse 07/09/2021 GERD (gastroesophageal reflux disease) Mood disorder 07/09/2021 documented as of this encounter (statuses as of 03/10/2024) Resolved Problems Problem Noted Date Diagnosed Date Resolved Date COPD, severity to be determined 07/09/2021 07/10/2022 Overview: Per COPD GOLD Classification documented as of this encounter (statuses as of 03/10/2024) Immunizations Name Administration Dates Next Due Covid-19 [...] encounter Miscellaneous Notes * Telephone Encounter - Nohemy Vázquez OSA - 03/10/2024 4:01 PM EDT Pt's pcp called saying the pt had act of the chest done on March 07 and he would like to discusswith Dr. Olivia the new nodules he noted on the scan. Please call Mayra at Dr. Marshall's offer at [phone]. Thank you M[facility] Scheduling Services documented in this encounter Plan of Treatment Upcoming Encounters Date Type Department Care Team (Late st Contact Info) Description 03/22/2024 8:20 AM EDT Office Visit Pulmonary Medicine, [facility] 132 [facility] [place] [address] Sav Olivia MD [address] [place] [id number] 03/23/2024 9:45 AM EDT Imaging Radiology [facility] 1st Floor, [place] [address] [facility] [address] 04/26/2024 8:30 AM EDT Office Visit Ophthalmology, [facility] 132 [facility] [address] Anthony Grey, DO 132 [place] [address] 05/12/2024 9:30 AM EDT Office Visit General Surgery, [facility] [address] [place] [address] Thiago Parker MD [address] [place], [place] [id number] 03/10/2025 10:00 AM EDT Office Visit Sleep Disorders Ctr [facility] 132 [place] [phone] Margie Gutierrez, DO 132 [place] [address] Health Maintenance Due Date Last Done Comments [...] filedocumented as of this encounter Care Teams Fur Operator Relationship Specialty Start Date End Date Richard Marshall DO [address] [place] [address] PCP - General Family Medicine 08/26/22 documented as of this encounter
--- OUTSIDE RECORDS SUMMARY | 2024-08-11 03:46 | External Medical Summary | Summary of Care ---
Author Name Unknown Organization [facility] Address [address] [place] [address] Phone [phone] Care Team Providers Care Maintenance Shop Clerk Name Role Phone Richard Marshall DO Primary Care Provider [phone] Reason for Visit * Reason Onset Date Comments Advice 03/10/2024 Re: Ct Chest res ults Encounter Details Date Type Department Care Team (Late st Contact Info) Description 03/10/2024 Telephone Pulmonary Medicine, [facility] 132 [facility] [place] [address] Services, Scheduling [address] [place] [address] Advice (Re: Ct Chest results) Allergies Active [...] Respimat 2.5-2.5 MCG/ACT Inhalation Aerosol Solution (Tiotropium [place]-Olodaterol )Indications:COPD, severity to be determined (HCC) Inhale [...] Dates Next Due Covid-19 Ad26, Single Dose (Ejffrey/J&J) 021 Seasonal Influenza, PF, 6 M & [...] call Mayra at Dr. Marshall's offer at [phone]. Thank you [facility] Scheduling Services documented in this encounter Plan of Treatment Upcoming Encounters Date Type Department Care Team (Late st Contact Info) Description 03/22/2024 8:20 AM EDT Office Visit Pulmonary Medicine, [facility] [address] [place] [address] Sav Olivia MD [address] [place] [address] 03/23/2024 9:45 AM EDT Imaging Radiology [facility] 1st Floor, [place] 132 [facility] [place] [address] 04/26/2024 8:30 AM EDT Office Visit Ophthalmology, [facility] 132 [facility] [place] [address] Anthony Grey, DO [address] [place] [address] 05/12/2024 9:30 AM EDT Office Visit General Surgery, [facility] 132 [facility] [place] [address] Thiago Parker MD [address] [place] [address] 03/10/2025 10:00 AM EDT Office Visit Sleep Disorders Ctr [facility] 132 [facility] [place] [phone] Margie Gutierrez, DO [facility] [place] [address] Health Maintenance Due Date Last Done Comments [...] filedocumented as of this encounter Care Teams Maintenance Shop Clerk Relationship Specialty Start Date End Date Richard Marshall DO [address] [place] [address] PCP - General Family Medicine 08/26/22 documented as of this encounter
--- OUTSIDE RECORDS SUMMARY | 2024-08-11 03:46 | External Medical Summary | Summary of Care ---
Author Name Unknown Organization [facility] Address [address] [place] [address] Phone [phone] Care Team Providers Care Sanding Machine Operator Name Role Phone Richard Marshall DO Primary Care Provider [phone] Reason for Visit * Reason Onset Date Comments Advice 03/10/2024 Re: Ct Chest res ults Encounter Details Date Type Department Care Team (Late st Contact Info) Description 03/10/2024 Telephone Pulmonary Medicine, [facility] 132 [facility] [place] [address] Services, Scheduling [address] [place] [address] Advice (Re: Ct Chest results) Allergies Active [...] Respimat 2.5-2.5 MCG/ACT Inhalation Aerosol Solution (Tiotropium [place]-Olodaterol )Indications:COPD, severity to be determined (HCC) Inhale [...] call Mayra at Dr. Marshall's offer at [phone]. Thank you Midge Scheduling Services documented in this encounter Plan of Treatment Upcoming Encounters Date Type Department Care Team (Late st Contact Info) Description 03/22/2024 8:20 AM EDT Office Visit Pulmonary Medicine, [facility] 132 [facility] [place] [address] Sav [facility] [address] [facility] [address] 03/23/2024 9:45 AM EDT Imaging Radiology [facility] 1st Floor, [place] [facility] [address] 04/26/2024 8:30 AM EDT Office Visit Ophthalmology, [facility] 132 [facility] [place] [address] Anthony Grey, DO [address] [facility] [place] [address] 05/12/2024 9:30 AM EDT Office Visit General Surgery, [facility] 132 [facility] [place] [address] Thiago Parker MD [address] [place] [address] 03/10/2025 10:00 AM EDT Office Visit Sleep Disorders Ctr [facility] 132 [facility] [place] [phone] Margie Gutierrez, DO [address] [place] [address] Health Maintenance Due Date Last Done Comments [...] filedocumented as of this encounter Care Teams Sanding Machine Operator Relationship Specialty Start Date End Date Richard Marshall DO 16 [facility] [place] [address] PCP - General Family Medicine 08/26/22 documented as of this encounter
--- OUTSIDE RECORDS SUMMARY | 2024-08-11 03:46 | External Medical Summary | Summary of Care ---
Author Name Unknown Organization [facility] Address [address] [place] [address] Phone [phone] Care Team Providers Care Kiln Stoker Name Role Phone Richard Marshall DO Primary Care Provider [phone] Reason for Visit * Reason Onset Date Comments Appointment 03/07/2024 Egd 48 hr galvin Encounter Details Date Type Department Care Team (Late st Contact Info) Description 03/07/2024 Telephone Gastroenterology, [place] [address] [place] [address] Specified, Huy No Resource [address] [place] [address] Appointment (Egd 48 hr galvin) Allergies Active Allergy Reactions Criticality Noted Date Comments Iodinated Contrast Media 07/05/2021 "itchy, rash and hives" CT Scan documented as of this encounter (statuses as of 03/07/2024) Medications Medication Sig Dispensed Refills Start Date [...] Respimat 2.5-2.5 MCG/ACT Inhalation Aerosol Solution (Tiotropium [place]-Olodaterol )Indications:COPD, severity to be determined ([facility]) Inhale 2 Puffs by [...] as of this encounter (statuses as of 03/07/2024) Active Problems Problem Noted Date Diagnosed Date Dermatillomania in adult 03/03/2023 COPD, group A, by GOLD 2017 classification 07/07 Overview: Per COPD GOLD Classification Major depressive disorder, recurrent episode, mo derate 10/28/2021 KRYSTA (generalized anxiety disorder) 10/28/2021 History of tobacco abuse 07/09/2021 GERD (gastroesophageal reflux disease) Mood disorder 07/09/2021 documented as of this encounter (statuses as of 03/07/2024) Resolved Problems Problem Noted Date Diagnosed Date Resolved Date COPD, severity to be determined 07/09/2021 07/10/2022 Overview: Per COPD GOLD Classification documented as of this encounter (statuses as of 03/07/2024) Immunizations Name Administration Dates Next Due Covid-19 Ad26, Single Dose (Jeffrey/J&J) 021 Seasonal Influenza, PF, 6 M & above, IM , (FluLaval or Fluzone) 07/18/2021 documented as of this encounter Social History Tobacco Use Types Packs/Day Years Used Date Smoking Tobacco: Former Cigarettes 1 35 1 2019 Smokeless Tobacco: Never Alcohol Use Standard Drinks/Week Comments Yes 0 [...] No 05/22/2023 Does the household have a [facility] source of income? (Household - [...] encounter Miscellaneous Notes * Telephone Encounter - Roxy Syed OSA - 03/07/2024 12:30 PM EDT Patient will call back to schedule * Telephone Encounter - Aleshia Matamoros OSA - 03/07/2024 11:45 AM EDT Referral UPPER ENDOSCOPY GI REFERRAL OP [[id number]] (Order [id number]) Currently Active Insurance Payor Plan Subscriber Member ID ELADIA [facility] [place] [id number] PCP Information Primary Care Provider Richard Marshall DO Order Information Date Department Ordering[facility]izing [facility] MD Order Providers Authorizing Provider Encounter Provider Thiago Parker MD Parker, David Matthew, MD Referral (Pending Review) ID: [id number] Created on: 03/03/2024 Referred by Referred to Thiago Parker MD Gastroenterology Reason: Ancillary Services Required Priority: Within 30 days (routine) Type: Ancillary Services Visits Requested: 999 Decision Date: 03/03/2024 Start Date: 03/03/2024 Related Appointments None Associated Diagnoses Gastroesophageal reflux disease without esophagitis [K21.9] Comments GALVIN 48 hours off meds Upper Endoscopy ASGE Guidelines Upper abdominal symptoms that persist despite an appropriate trial of therapy ADDITIONAL INFORMATION 1. Is the patient on Coumadin? No 2. Is the patient on Pradaxa? No Status History Encounter View Encounter Order Questions Question Answer Referral Priority Within 30 days (routine) Where should this appointment be scheduled? [facility] Encounter View Encounter THIS REFERRAL HAS BEEN ELECTRONICALLY SIGNED * Administrative Questions: [phone] or [phone] Reprint Requisition UPPER ENDOSCOPY GI REFERRAL OP (Order #[id number]) on 03/03/24 documented in this encounter Plan of Treatment Upcoming Encounters Date Type Department Care Team (Late st Contact Info) Description 03/10/2024 10:00 AM EDT Office Visit Sleep Disorders Ctr [facility] [address] [facility] [place] [phone] Margie Gutierrez, DO [address] [place] [address] 04/26/2024 8:30 AM EDT Office Visit Ophthalmology, [facility] [address] [facility] [place] [address] Anthony Grey, DO [address] [place] [address] 05/12/2024 9:30 AM EDT Office Visit General Surgery, [facility] [address] [facility] [place] [address] Thiago Parker MD [address] [place] [address] Health Maintenance Due Date Last Done Comments [...] filedocumented as of this encounter Care Teams Kiln Stoker Relationship Specialty Start Date End Date Richard Marshall DO [address] [place], [place] [id number] PCP - General Family Medicine 08/26/22 documented as of this encounter
--- OUTSIDE RECORDS SUMMARY | 2024-08-11 03:46 | External Medical Summary | Summary of Care ---
Author Name Unknown Organization [facility] Address [address] [facility] [place] [address] Phone [phone] Care Team Providers Care Business Manager Name Role Phone Richard Marshall DO Primary Care Provider [phone] Reason for Visit * Reason Onset Date Comments Durable Medical Equipment 03/14/2024 CPAP s upplies Encounter Details Date Type Department Care Team (Late st Contact Info) Description 03/14/2024 Telephone Sleep Disorders Ctr [facility] [address] [place] [phone] Margie Gutierrez DO [address] [place] [address] Durable Medical Equipment (CPAP supplies ) Allergies Active Allergy Reactions Criticality Noted Date [...] Respimat 2.5-2.5 MCG/ACT Inhalation Aerosol Solution (Tiotropium [place]-Olodaterol )Indications:COPD, severity to be determined (HCC) Inhale [...] No 05/22/2023 Does the household have a [facility] source of income? (Household - for [...] encounter Miscellaneous Notes * Telephone Encounter - Latia Fontana OSA - 03/14/2024 8:19 AM EDT DME order for mask fitting and supplies submitted to [employer]. documented in this encounter Plan of Treatment Upcoming Encounters Date Type Department Care Team (Late st Contact Info) Description 03/22/2024 8:20 AM EDT Office Visit Pulmonary Medicine, [facility] 132 [facility] [place] [address] Sav Olivia MD [address] [place] [id number] 03/23/2024 9:45 AM EDT Imaging Radiology [facility] 1[address] [facility] 132 [facility] [address] 04/26/2024 8:30 AM EDT Office Visit Ophthalmology, [facility] 132 [place] [address] Anthony Grey, DO 132 [place] [address] 05/12/2024 9:30 AM EDT Office Visit General Surgery, [facility] 132 [place] [address] Thiago Parker MD [address] [place] [address] 03/10/2025 10:00 AM EDT Office Visit Sleep Disorders Ctr [facility] 132 [facility] [place] [phone] Margie Gutierrez, DO 132 [place] [address] Health Maintenance Due Date Last Done Comments [...] filedocumented as of this encounter Care Teams Business Manager Relationship Specialty Start Date End Date Richard Marshall DO [address] [place] [address] [place] [address] PCP - General Family Medicine 08/26/22 documented as of this encounter
--- OUTSIDE RECORDS SUMMARY | 2024-08-11 03:46 | External Medical Summary | Summary of Care ---
Author Name Unknown Organization [facility] Address [address] [place] [address] Phone [phone] Care Team Providers Care Merchandising Professor Name Role Phone Richard Marshall DO Primary Care Provider [phone] Reason for Referral * Precert (Within 10 days (routine)) - Authorized Specialty Diagnoses / Procedures Referred By Constance molina Referred To Contact Radiology Diagnoses Chest pain, unspecified Shortness of breath Malignant neoplasm of unspecified part of left bronchus or lung (HCC) Procedures CT CHEST W CONTRAST Richard Marshall DO [address] [place] [address] Referral ID Status Reason Start Date Expiration Date V isits Requested Visits Authorized [id number] Authorized Precert 03/04/2024 04/04/2024 999 999 Reason for Visit * Precert (Within 10 days (routine)) - Authorized Specialty Diagnoses / Procedures Referred By Contac t Referred To Contact Radiology Diagnoses Chest pain, unspecified Shortness of breath Malignant neoplasm of unspecified part of left bronchus or lung (HCC) Procedures CT CHEST W CONTRAST Richard Marshall DO [address] [place] [address] Referral ID Status Reason Start Date Expiration Date V isits Requested Visits Authorized [id number] Authorized Precert 03/04/2024 04/04/2024 [id number] Encounter Details Date Type Department Care Team (Latest Contact Info) Description 03/07/2024 11:21 AM EDT - 03/07/2024 11:59 PM EDT Hospital Encounter Radiology, [facility] [address] [place] [address] Arrived Discharge Disposition: Home - Self Care Allergies Active Allergy Reactions Criticality Noted Date Comments Iodinated Contrast Media 07/05/2021 "itchy, rash and hives" CT Scan documented as of this encounter (statuses as of 03/08/2024) Medications Medication Sig Dispensed Refills Start Date [...] Respimat 2.5-2.5 MCG/ACT Inhalation Aerosol Solution (Tiotropium [place]-Olodaterol )Indications:COPD, severity to be determined (HCC) Inhale [...] as of this encounter (statuses as of 03/08/2024) Active Problems Problem Noted Date Diagnosed Date Dermatillomania in adult 03/03/2023 COPD, group A, by GOLD 2017 classification 07/07 Overview: Per COPD GOLD Classification Major depressive disorder, recurrent episode, mo derate 10/28/2021 KRYSTA (generalized anxiety disorder) 10/28/2021 History of tobacco abuse 07/09/2021 GERD (gastroesophageal reflux disease) Mood disorder 07/09/2021 documented as of this encounter (statuses as of 03/08/2024) Resolved Problems Problem Noted Date Diagnosed Date Resolved Date COPD, severity to be determined 07/09/2021 07/10/2022 Overview: Per COPD GOLD Classification documented as of this encounter (statuses as of 03/08/2024) Immunizations Name Administration Dates Next Due Covid-19 [...] AM EDT Office Visit Sleep Disorders Ctr [facility] 132 [facility] [place] [phone] Margie Gutierrez, DO 132 [place] [address] 04/26/2024 8:30 AM EDT Office Visit Ophthalmology, [facility] 132 [place] [address] Anthony Grey, DO 132 [facility] [place] [address] 05/12/2024 9:30 AM EDT Office Visit General Surgery, [facility] [address] [place] [address] Thiago Parker MD [address] [place] [address] Pending Results Name Type Priority Associated Diagnoses Date /Time CT CHEST W CONTRAST Medical Imaging Routine Chest pain, unspecified Shortness of breath Malignant neoplasm of unspecified part of left bronchus or lung (HCC) 03/07/2024 11:36 AM EDT Scheduled Orders Name Type Priority Associated Diagnoses Orde r Schedule CT CHEST W CONTRAST Medical Imaging Routine Chest pain, unspecified Shortness of breath Malignant neoplasm of unspecified part of left bronchus or lung (HCC) 1 Occurrences starting 03/07/2024 until 03/07/2024 Health Maintenance Due Date Last Done Comments [...] encounter Visit Diagnoses Diagnosis Chest pain, unspecified Shortness of breath Malignant neoplasm of unspecified part of left bronchus or lung (HCC) documented in this encounter Administered Medications Inactive Administered Medications - up to 3 most recent administrations Medication Order MAR Action Action Date Dose Rate Site Iopamidol (Isovue 370) inj 80 mL 80 mL, Intravenous, ONCE, On 03/07/24 at 1138, For 1 dose, Radiology Medication Routing (Non-IR) Given 03/07/2024 11:38 AM EDT 80 mL documented in this encounter Care Teams Merchandising Professor Relationship Specialty Start Date End Date Richard Marshall DO [address] [place] [id number] PCP - General Family Medicine 08/26/22 documented as of this encounter
--- OUTSIDE RECORDS SUMMARY | 2024-08-11 03:46 | External Medical Summary | Summary of Care ---
Author Name Unknown Organization [facility] Address [address] [place] [address] Phone [phone] Care Team Providers Care Human Resource Officer Name Role Phone Richard Marshall DO Primary Care Provider [phone] Reason for Visit * Reason Onset Date Comments Advice 03/10/2024 Re: Ct Chest res ults Encounter Details Date Type Department Care Team (Late st Contact Info) Description 03/10/2024 Telephone Pulmonary Medicine, [facility] 132 [facility] [place] [address] Services, Scheduling [address] [place] [address] Advice (Re: Ct Chest results) Allergies Active [...] Respimat 2.5-2.5 MCG/ACT Inhalation Aerosol Solution (Tiotropium [place]-Olodaterol )Indications:COPD, severity to be determined (HCC) Inhale [...] call Mayra at Dr. Marshall's offer at [phone]. Thank you [facility] Scheduling Services documented in this encounter Plan of Treatment Upcoming Encounters Date Type Department Care Team (Late st Contact Info) Description 03/22/2024 8:20 AM EDT Office Visit Pulmonary Medicine, [facility] 132 [facility] [place] [address] Sav Olivia MD [address] [place] [address] 03/23/2024 9:45 AM EDT Imaging Radiology [facility] 1st Floor, [address] [place] [address] 04/26/2024 8:30 AM EDT Office Visit Ophthalmology, [address] [place] [address] Anthony Grey, DO 132 [facility] [place] [address] 05/12/2024 9:30 AM EDT Office Visit General Surgery, [facility] 132 [facility] [place] [address] Thiago Parker MD [address] [place] [address] 03/10/2025 10:00 AM EDT Office Visit Sleep Disorders Ctr [facility] 132 [facility] [place] [phone] Margie Gutierrez, [address] [place] [address] Health Maintenance Due Date Last Done Comments [...] filedocumented as of this encounter Care Teams Human Resource Officer Relationship Specialty Start Date End Date Richard Marshall DO [address] [place] [address] PCP - General Family Medicine 08/26/22 documented as of this encounter
--- OUTSIDE RECORDS SUMMARY | 2024-08-11 03:46 | External Medical Summary | Summary of Care ---
Author Name Unknown Organization [facility] Address [address] [place] [address] Phone [phone] Care Team Providers Care Loan Review Analyst Name Role Phone Richard Marshall DO Primary Care Provider [phone] Reason for Referral * Precert (Within 10 days (routine)) - Authorized Specialty Diagnoses / Procedures Referred By Contac t Referred To Contact Radiology Diagnoses Chest pain, unspecified Shortness of breath Malignant neoplasm of unspecified part of left bronchus or lung (HCC) Procedures CT CHEST W CONTRAST Richard Marshall DO [address] [place] [address] Referral ID Status Reason Start Date Expiration Date V isits Requested Visits Authorized [id number] Authorized Precert 03/04/2024 04/04/2024 [id number] Encounter Details Date Type Department Care Team (Late st Contact Info) Description 03/04/2024 Orders Only Radiology, [facility] [address] [place] [address] Requisition, External Radiology [address] [place] [address] Chest pain, unspecified*; Shortness of breath; Malignant neoplasm of unspecified part of left bronchus or lung (HCC) Allergies Active Allergy Reactions Criticality Noted Date Comments Iodinated Contrast Media 07/05/2021 "itchy, rash and hives" CT Scan documented as of this encounter (statuses as of 03/04/2024) Medications Medication Sig Dispensed Refills Start Date [...] Respimat 2.5-2.5 MCG/ACT Inhalation Aerosol Solution (Tiotropium [place]-Olodaterol )Indications:COPD, severity to be determined (HCC) [...] as of this encounter (statuses as of 03/04/2024) Active Problems Problem Noted Date Diagnosed Date Dermatillomania in adult 03/03/2023 COPD, group A, by GOLD 2017 classification 07/07 Overview: Per COPD GOLD Classification Major depressive disorder, recurrent episode, mo derate 10/28/2021 KRYSTA (generalized anxiety disorder) 10/28/2021 History of tobacco abuse 07/09/2021 GERD (gastroesophageal reflux disease) Mood disorder 07/09/2021 documented as of this encounter (statuses as of 03/04/2024) Resolved Problems Problem Noted Date Diagnosed Date Resolved Date COPD, severity to be determined 07/09/2021 07/10/2022 Overview: Per COPD GOLD Classification documented as of this encounter (statuses as of 03/04/2024) Immunizations Name Administration Dates Next Due Covid-19 [...] No 05/22/2023 Does the household have a [facility] source [facility]? (Household - for [...] Team (Late st Contact Info) Description 03/07/2024 11:45 AM EDT Appointment Radiology, [facility] [address] [place] [phone] 03/10/2024 10:00 AM EDT Office Visit Sleep Disorders Ctr [address] [place] [phone] Margie Gutierrez, DO [address] [place] [address] 04/26/2024 8:30 AM EDT Office Visit Ophthalmology, [facility] [address] [facility] [address] Anthony Grey, DO [address] [place] [address] 05/12/2024 9:30 AM EDT Office Visit General Surgery, [facility] 132 [place] [address] Thiago Parker MD [address] [place], [place] [id number] Scheduled Orders Name Type Priority Associated Diagnoses Orde r Schedule CT CHEST W CONTRAST Medical Imaging Routine Chest pain, unspecified Shortness of breath Malignant neoplasm of unspecified part of left bronchus or lung (HCC) Expected: 03/07/2024, Expires: 04/04/2025 Health Maintenance Due Date Last Done Comments [...] this encounter Visit Diagnoses Diagnosis Chest pain, unspecified- Primary Shortness of breath Malignant neoplasm of unspecified part of left bronchus or lung (HCC) documented in this encounter Care Teams Loan Review Analyst Relationship Specialty Start Date End Date Richard Marshall DO [address] [place] [address] PCP - General Family Medicine 08/26/22 documented as of this encounter
--- OUTSIDE RECORDS SUMMARY | 2024-08-11 03:46 | External Medical Summary | Summary of Care ---
Author Name Unknown Organization [facility] Address [address] [place] [address] Phone [phone] Care Team Providers Care Manager Of Business Operations Name Role Phone Richard Marshall DO Primary Care Provider [phone] Encounter Details Date Type Department Care Team (Late st Contact Info) Description 03/02/2024 Orders Only General Surgery, [place] [address] [place] [address] Thiago Parker MD [address] [place] [address] Allergies Active Allergy Reactions Criticality [...] Respimat 2.5-2.5 MCG/ACT Inhalation Aerosol Solution (Tiotropium [place]-Olodaterol )Indications:COPD, severity to be determined (HCC) Inhale [...] 18 years and over) Not on file 10/27/202 3 Are you (or your family) jamel [...] Disorders Ctr [facility] [address] [place] [phone] Margie Gutierrez, DO [address] [place] [address] 04/26/2024 8:30 AM EDT Office Visit Ophthalmology, [facility] [address] [place] [address] Anthony Grey, DO [address] [place] [address] 05/12/2024 9:30 AM EDT Office Visit General Surgery, [facility] [address] [place] [address] Thiago Parker MD [address] [place] [address] Health Maintenance Due Date Last Done Comments [...] Procedure Name Priority Date/Time Associated Diagnosis Comments RADIOLOGY EXAM - FLUOROSCOPY (IMAGES ONLY, NO REPORT) Routine 03/02/2024 8:50 AM EDT documented in this encounter Results * RADIOLOGY EXAM - FLUOROSCOPY (IMAGES ONLY, NO REPORT) (03/02/2024 8:50 AM EDT) 03/02/2024 8:49 AM EDT Narrative Scheduling, Silent - 03/07/2024 8:46 PM EDT This is an imaging study not interpreted or resulted by a [facility] or [facility] contracted radiologist. Thiago Parker MD RAD FLUOROSCOPY documented in this encounter Care Teams Manager Of Business Operations Relationship Specialty Start Date End Date Richard Marshall DO [address] [place], [place] [id number] PCP - General Family Medicine 08/26/22 documented as of this encounter
--- OUTSIDE RECORDS SUMMARY | 2024-08-11 03:46 | External Medical Summary | Summary of Care ---
Author Name Unknown Organization [facility] Address [address] [facility] [place] [address] Phone [phone] Care Team Providers Care Check Writer Name Role Phone Richard Marshall DO Primary Care Provider [phone] Encounter Details Date Type Department Care Team (Latest Contact Info) Description 03/02/2024 8:50 AM EDT - 03/02/2024 11:59 PM EDT Hospital Encounter Radiology Film File [address] [facility] [place] [address] Discharge Disposition: Home - Self Care Allergies [...] Respimat 2.5-2.5 MCG/ACT Inhalation Aerosol Solution (Tiotropium [place]-Olodaterol )Indications:COPD, severity to be determined (HCC) Inhale [...] AM EDT Office Visit Sleep Disorders Ctr [facility] [address] [place] [phone] Margie Gutierrez, DO [address] [place] [address] 04/26/2024 8:30 AM EDT Office Visit Ophthalmology, [facility] [address] [place] [address] Anthony Grey, DO [address] [place] [address] 05/12/2024 9:30 AM EDT Office Visit General Surgery, [facility] [address] [place] [address] Thiago Parker MD [address] [place] [address] Health Maintenance Due Date Last Done Comments [...] interpreted or resulted by a [facility] or [facility]. Thiago Parker MD RAD FLUOROSCOPY documented in this encounter Care Teams Check Writer Relationship Specialty Start Date End Date Richard Marshall DO [address] [place] [address] PCP - General Family Medicine 08/26/22 documented as of this encounter
[2024-08-11] MEDS: CEFEPIME 2000MG 2,000 MG/20 ML SYR IV SCH (05:37)
[2024-08-11 07:11] LABS: Estimated Average Glucose 105 mg/dl; Hemoglobin A1C 5.3 % (4.5-5.6)
[2024-08-11] MEDS: UMECLIDINIUM/VILANTEROL 62.5/25MCG 7 PUFFS/INHALER INH SCH (08:07)
[2024-08-11] MEDS: PANTOprazole 40 MG TAB PO SCH (08:08)
[2024-08-11] MEDS: ASPIRIN 81 MG ECTAB PO SCH (08:08)
[2024-08-11] MEDS: allopurinoL 100 MG TAB PO SCH (08:08)
[2024-08-11] MEDS: METOPROLOL SUCC 25MG EXT REL TAB PO SCH (08:08)
[2024-08-11] MEDS: ENOXAPARIN INJ 40 MG/0.4 ML SYR SQ SCH (08:08)
[2024-08-11] MEDS: ACETAMINOPHEN 325 MG TAB PO PRN (08:09)
--- NOTE | 2024-08-11 08:11 | Electrocardiogram Report ---
Test Reason : Blood Pressure : */* mmHG Vent. Rate : 117 BPM Atrial Rate : 117 BPM P-R Int : 144 ms QRS Dur : 78 ms QT Int : 324 ms P-R-T Axes : 47 74 10 degrees QTcB Int : 451 ms Sinus tachycardia Possible Inferior infarct , age undetermined Nonspecific T wave abnormality Abnormal ECG No previous ECGs available Confirmed by Dario Renae ([id number]) on 08/11/2024 8:10:47 AM Referred By: REFERRED SELF Confirmed By: Dario Renae
--- NOTE | 2024-08-11 12:18 | Surgery Consultation ---
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 History of possible port infection treated with 3 course of oral antibiotics since June however per patient no significant overlying skin changes at port site since placement. Chronic reactive erythema at port site likely due to it being so close to the dermis. No findings of abscess/cellulitis at port site on examination. No other signs/symptoms of other infectious source (GI, upper respiratory, urinary). Only 1 treatment left planned. Given highly elevated leukocytosis , tachycardia, and recent courses of oral antibiotics for port-site infection (although none today on exam) likely needs port removal. Continue current medical management. NPO after midnight. Hold anticoagulation. Will see when we can get her scheduled after discussion with attending surgeon. History of Present Illness Reason for Consultation: Sepsis, possible port infection? Requesting Physician: Noel De León MD Attending Physician: Noel De León MD History of Present Illness Lanny is a pleasant 59 yo female with history of malignant neoplasm of lung metastatic to bone currently undergoing chemotherapy presented to hospital last evening due to high grade fever of 102. States that she is feeling otherwise fine. Denies of any cough, chest pain , shortness of breath, difficulty urinating, increased urinary frequency, blood in urine, abdominal pain, diarrhea, blood in stools, sore throat, nasal congestion, ear pain. States son was around her last week in which he had a sore throat. No other sick contact. States port was placed by IR at [facility] in March and has had some redness at port site since placement. States she had some stitches sticking out of incision which she pulled and looked like had pus on it. Denies increasing pain, redness, swelling at port site. Has been on 3 course of antibiotics (keflex x 2 and Bactrim) for possible port infection. Follows with Dr. Schaefer with medical oncology. Last chemo treatment was on Thursday via peripheral vein, port was not used. Has 1 treatment left from her understanding. Allergies Allergy/AdvReac Type Severity Reaction Status Date / Time Iodinated Contrast Media Allergy Unknown Rash Verified 08/10/24 23:28 Home Medications Medication Instructions Recorded Confirmed Type atorvastatin 40 mg tablet 40 mg PO QAM 04/27/24 08/10/24 History cholecalciferol (vitamin D3) 50 50 mcg PO HS 04/27/24 08/10/24 History mcg (2,000 unit) capsule clonazepam 0.5 mg tablet 0.5 mg PO DAILY PRN anxiety 04/27/24 08/10/24 History conjugated estrogens 0.625 mg 0.625 mg PO HS 04/27/24 08/10/24 History tablet (Premarin) duloxetine 30 mg capsule,delayed 30 mg PO HS 04/27/24 08/10/24 History release ferrous sulfate 325 mg (65 mg 325 mg PO HS 04/27/24 08/10/24 History iron) tablet oxycodone-acetaminophen 5 mg-325 2 tab PO Q6H PRN pain 04/27/24 08/10/24 History mg tablet (Percocet) pantoprazole 40 mg tablet,delayed 40 mg PO BID 04/27/24 08/10/24 History release tiotropium 2.5 mcg-olodaterol 2.5 2 puff inhalation QAM 04/27/24 08/10/24 History mcg/actuation mist for inhalation (Stiolto Respimat) trazodone 50 mg tablet 100 mg PO HS 04/27/24 08/10/24 History allopurinol 100 mg tablet 100 mg PO QAM 08/10/24 08/10/24 History aspirin 81 mg tablet,delayed 81 mg PO DAILY 08/10/24 08/10/24 History release metoprolol succinate 25 mg 12.5 mg PO DAILY 08/10/24 08/10/24 History tablet,extended release 24 hr olanzapine 10 mg tablet See Rx Instructions .Route .COMPLEX 08/10/24 08/10/24 History ondansetron HCl 8 mg tablet 8 mg PO Q8 PRN Nausea 08/10/24 08/10/24 History sulfamethoxazole 800 1 tab PO AMHS 08/10/24 08/10/24 History mg-trimethoprim 160 mg tablet Patient History Medical History Melanoma Lung cancer COPD (chronic obstructive pulmonary disease) Anxiety GERD (gastroesophageal reflux disease) History of tobacco abuse Surgical History (Updated 04/27/24 @ 08:22 by Brisa Young RN) H/O breast augmentation History of carpal tunnel surgery History of surgery on arm History of bunionectomy History of tonsillectomy History of thoracotomy History of lung surgery History of lobectomy of lung Family History (Updated 04/27/24 @ 08:24 by Brisa Young RN) Father No problems noted. Mother Cancer, Onset Age: 71 pancreatic cancer Daughter No problems noted. Son No problems noted. Son No problems noted. Social History Smoking Status: Former smoker Hx Alcohol Use: No Hx Substance Use: No Preferred Language: Yakut Communication Ability: Effective [employer] Consultant Required: No Beliefs That Will Affect Care: None Current Living Situation: Spouse Other Information That Helps Us Care for You: No Feels Safe at Home: Yes Safety Concerns: Feels Safe At This Time Assistive Devices: Glasses Review of Systems Review of Systems: All systems reviewed & are unremarkable except as noted in HPI & below Physical Exam Constitutional: WD/WN, vitals as above cooperative and comfortable; no acute distress and not ill appearing Neck: normal visual inspection and trachea midline Respiratory: normal respiratory effort, lungs clear to auscultation Cardiovascular: Rate/Rhythm: + tachycardic Heart Sounds: normal S1 and normal S2; no murmur Chest (Breasts): Additional Comments: There is a port of the right chest wall with reactive chronic erythema at port site. There is no induration, flucutance, warmth, tenderness to palpation. No drainage . Port is very close to the skin and the knobs on the port are easily visible. Skin: no rashes, warm and dry Psychiatric: Orientation: alert and oriented x 3 Results & Data Vital Signs (Past 12 Hours) Vital Signs Temp Pulse Pulse Resp BP BP Pulse Ox 08/11/24 11:40 36.4 C L 98 H 18 126/85 91 08/11/24 07:34 36.9 C 107 H 18 104/71 92 08/11/24 07:32 100 H 08/11/24 02:40 115 H 08/11/24 02:18 97 H 138/84 08/11/24 01:29 37.1 C 110 H 18 158/88 H 96 08/11/24 01:27 37.1 C 110 H 18 158/88 H 96 08/11/24 01:27 08/11/24 00:39 100 H 25 H 94 08/11/24 00:20 36.8 C 101 H 18 98 Pulse Ox O2 Del Method O2 Del Method 08/11/24 11:40 Room Air 08/11/24 07:34 Room Air 08/11/24 07:32 08/11/24 02:40 08/11/24 02:18 08/11/24 01:29 Room Air 08/11/24 01:27 Room Air 08/11/24 01:27 96 Room Air 08/11/24 00:39 08/11/24 00:20 Room Air Laboratory Results 08/11/24 08/11/24 08/10/24 Range/Units 06:16 01:42 22:20 WBC 36.03 H* (4.8-10.8) K/ul RBC 3.55 L (4.20-5.40) M/uL Hgb 11.1 L (12.0-16.0) g/dl Hct 33.5 L (37.0-47.0) % MCV 94.4 (80.0-100.0) fL MCH 31.3 (25.0-34.0) pg MCHC 33.1 (32.0-36.0) g/dL RDW Std Deviation 57.8 H (36.4-46.3) fL RDW Coeff of Glenys 16.6 H (11.5-14.5) % Plt Count 138 (130-400) K/uL MPV 10.2 (9.4-12.4) fL Immature Gran % (Auto) 7.5 % Neut % (Auto) 88.6 % Lymph % (Auto) 2.8 % Curry % (Auto) 0.7 % Eos % (Auto) 0.1 % Baso % (Auto) 0.3 % Neut # (Auto) 31.89 H (1.40-6.50) K/uL Lymph # (Auto) 1.02 L (1.20-3.40) K/uL Curry # (Auto) 0.25 (0.11-0.59) K/uL Eos # (Auto) 0.03 (0.00-0.50) K/uL Baso # (Auto) 0.12 (0.00-0.20) K/uL Immature Gran # (Auto) 2.72 H (0.01-0.20) K/uL RBC Morphology Unremarkable Polychromasia PT (9.0-12.0) Seconds INR (0.9-1.1) APTT (21-31) Seconds PTT Ratio Sodium 139 (136-145) mmol/L Potassium 3.7 (3.5-5.1) mmol/L Chloride 105 (98-107) mmol/L Carbon Dioxide 26 (21-32) mmol/L Anion Gap 8 (3-11) BUN 11 (6-23) mg/dl Creatinine 0.67 (0.6-1.2) mg/dl Est Cr Clr Drug Dosing 93.4 ml/min eGFR 100.00 BUN/Creatinine Ratio 16.4 (10-20) Glucose 96 (70-99(Fasting)) mg/dl Estimat Average Glucose mg/dl Hemoglobin A1c (4.5-5.6) % Lactate 1.7 2.3 H* (0.4-2.0) mmol/L Calcium 8.7 (8.6-10.3) mg/dl Magnesium 1.9 (1.7-2.4) mg/dl Total Bilirubin (0.2-1.0) mg/dl AST (13-39) U/L ALT (7-52) U/L Alkaline Phosphatase (34-104) U/L Troponin I High Sens (0-14) pg/ml Total Protein (6.0-8.3) gm/dl Albumin (3.4-5.0) gm/dl Globulin (2.5-4.0) gm/dl Albumin/Globulin Ratio (0.9-2) Procalcitonin (0-0.5) ng/ml Urine Color Yellow Urine Appearance Clear (Clear) Urine pH 5.5 (4.5-7.5) Ur Specific Gustine 1.012 (1.000-1.030) Urine Protein Negative (Negative) Urine Glucose (UA) Negative (Negative) Urine Ketones Negative (Negative) Urine Blood 1+ H (Negative) Urine Nitrite Negative (Negative) Urine Bilirubin Negative (Negative) Urine Urobilinogen Negative (Negative) Ur Leukocyte Esterase 1+ H (Negative) Urine WBC (Auto) 6-10 H (0-5) /hpf Urine RBC (Auto) 0-2 (0-2) /hpf U Hyaline Cast (Auto) 0-2 (0-2) /lpf U Epithel Cells (Auto) 3-5 H (0-2) /hpf Urine Bacteria (Auto) 1+ H (None Seen) Adenovirus (PCR) Not Detected (NotDetected) B. pertussis DNA (PCR) Not Detected (NotDetected) B.parapertussis DNA PCR Not Detected (NotDetected) C. pneumoniae DNA (PCR) Not Detected (NotDetected) Coronavirus OC43 (PCR) Not Detected (NotDetected) Coronavirus HKU1 (PCR) Not Detected (NotDetected) Coronavirus 229E (PCR) Not Detected (NotDetected) SARS-CoV-2 (PCR) Not Detected (NotDetected) Coronavirus NL63 (PCR) Not Detected (NotDetected) Human Metapneumovir PCR Not Detected (NotDetected) Influenza Type A (PCR) Not Detected (NotDetected) Influenza Type B (PCR) Not Detected (NotDetected) M. pneumoniae (PCR) Not Detected (NotDetected) Parainfluenza 1 (PCR) Not Detected (NotDetected) Parainfluenza 2 (PCR) Not Detected (NotDetected) Parainfluenza 3 (PCR) Not Detected (NotDetected) Parainfluenza 4 (PCR) Not Detected (NotDetected) RSV (PCR) Not Detected (NotDetected) Entero/Rhino (PCR) Not Detected (NotDetected) 08/10/24 08/10/24 Range/Units 22:15 22:14 WBC 39.88 H* (4.8-10.8) K/ul RBC 3.74 L (4.20-5.40) M/uL Hgb 11.9 L (12.0-16.0) g/dl Hct 35.0 L (37.0-47.0) % MCV 93.6 (80.0-100.0) fL MCH 31.8 (25.0-34.0) pg MCHC 34.0 (32.0-36.0) g/dL RDW Std Deviation 57.6 H (36.4-46.3) fL RDW Coeff of Glenys 16.6 H (11.5-14.5) % Plt Count 163 (130-400) K/uL MPV 10.5 (9.4-12.4) fL Immature Gran % (Auto) 5.1 % Neut % (Auto) 91.8 % Lymph % (Auto) 2.0 % Curry % (Auto) 0.7 % Eos % (Auto) 0.1 % Baso % (Auto) 0.3 % Neut # (Auto) 36.65 H (1.40-6.50) K/uL Lymph # (Auto) 0.79 L (1.20-3.40) K/uL Curry # (Auto) 0.28 (0.11-0.59) K/uL Eos # (Auto) 0.02 (0.00-0.50) K/uL Baso # (Auto) 0.10 (0.00-0.20) K/uL Immature Gran # (Auto) 2.04 H (0.01-0.20) K/uL RBC Morphology Polychromasia 1+ PT 10.1 (9.0-12.0) Seconds INR 0.9 (0.9-1.1) APTT 22 (21-31) Seconds PTT Ratio 0.8 Sodium 138 (136-145) mmol/L Potassium 3.6 (3.5-5.1) mmol/L Chloride 103 (98-107) mmol/L Carbon Dioxide 25 (21-32) mmol/L Anion Gap 10 (3-11) BUN 13 (6-23) mg/dl Creatinine 0.79 (0.6-1.2) mg/dl Est Cr Clr Drug Dosing 78.5 ml/min eGFR 85.58 BUN/Creatinine Ratio 16.5 (10-20) Glucose 118 H (70-99(Fasting)) mg/dl Estimat Average Glucose 105 mg/dl Hemoglobin A1c 5.3 (4.5-5.6) % Lactate 2.3 H* (0.4-2.0) mmol/L Calcium 9.3 (8.6-10.3) mg/dl Magnesium 1.4 L (1.7-2.4) mg/dl Total Bilirubin 0.5 (0.2-1.0) mg/dl AST 21 (13-39) U/L ALT 26 (7-52) U/L Alkaline Phosphatase 90 (34-104) U/L Troponin I High Sens 11.3 (0-14) pg/ml Total Protein 6.8 (6.0-8.3) gm/dl Albumin 4.0 (3.4-5.0) gm/dl Globulin 2.8 (2.5-4.0) gm/dl Albumin/Globulin Ratio 1.4 (0.9-2) Procalcitonin 0.19 (0-0.5) ng/ml Urine Color Urine Appearance (Clear) Urine pH (4.5-7.5) Ur Specific Gustine (1.000-1.030) Urine Protein (Negative) Urine Glucose (UA) (Negative) Urine Ketones (Negative) Urine Blood (Negative) Urine Nitrite (Negative) Urine Bilirubin (Negative) Urine Urobilinogen (Negative) Ur Leukocyte Esterase (Negative) Urine WBC (Auto) (0-5) /hpf Urine RBC (Auto) (0-2) /hpf U Hyaline Cast (Auto) (0-2) /lpf U Epithel Cells (Auto) (0-2) /hpf Urine Bacteria (Auto) (None Seen) Adenovirus (PCR) (NotDetected) B. pertussis DNA (PCR) (NotDetected) B.parapertussis DNA PCR (NotDetected) C. pneumoniae DNA (PCR) (NotDetected) Coronavirus OC43 (PCR) (NotDetected) Coronavirus HKU1 (PCR) (NotDetected) Coronavirus 229E (PCR) (NotDetected) SARS-CoV-2 (PCR) (NotDetected) Coronavirus NL63 (PCR) (NotDetected) Human Metapneumovir PCR (NotDetected) Influenza Type A (PCR) (NotDetected) Influenza Type B (PCR) (NotDetected) M. pneumoniae (PCR) (NotDetected) Parainfluenza 1 (PCR) (NotDetected) Parainfluenza 2 (PCR) (NotDetected) Parainfluenza 3 (PCR) (NotDetected) Parainfluenza 4 (PCR) (NotDetected) RSV (PCR) (NotDetected) Entero/Rhino (PCR) (NotDetected) Diagnostic Findings CT chest diagnostic wo con ADDENDUM: upon further review, there is no evidence of collection surrounding the chemoport in right upper chest wall. Electronically signed by Michael Herzog 08-11-2024 01:50 AM ADDENDUM END EXAM: CT chest diagnostic wo con CLINICAL HISTORY: recurrent R chest wall swelling TECHNIQUE: Contiguous axial images were obtained from the neck base through the upper abdomen without contrast. In addition, sagittal and coronal reconstructions were performed to potentially increase the sensitivity for the detection of disease. CT scan was performed according to ALARA (as low as reasonable achievable). COMPARISON: 03/07/2024 11:30:19 LAYOUT FORMER. FINDINGS: Focal fibrotic scar is noted involving right apical segment. Few atelectatic bands are noted involving left lower lobe and lingula Diffuse centrilobular emphysema noted involving both lungs. Subtle few tiny ground-glass area are noted involving right upper lobe. Rest of lungs are clear. The central airways are patent. There are no pleural effusions. No pneumothorax is seen. Evaluation of the mediastinum and amalia is limited due to the lack of intravenous contrast. No axillary or mediastinal adenopathy is identified. The thyroid is unremarkable. The heart, aorta, and pulmonary arteries are of normal size and configuration. There are no appreciable coronary artery and aortic atherosclerotic calcifications. No pericardial effusion is identified. Imaged portions of the upper abdomen are unremarkable. Sclerotic lesions seen in left 5th rib. Multiple sclerotic foci also seen in thoracic vertebral bodies. IMPRESSION: Focal fibrotic scar is noted involving right apical segment. -stable. Few atelectatic bands are noted involving left lower lobe and lingula - sequelae of previous infection Diffuse centrilobular emphysema noted involving both lungs. -stable. Subtle few tiny ground-glass area are noted involving right upper lobe. -stable. Sclerotic lesions seen in left 5th rib. Multiple sclerotic foci also seen in thoracic vertebral bodies. Likely metastatic. Increased in extent and size as compared to prior study- suggestive of progressive disease.
[2024-08-11] MEDS: LIDOCAINE 5% 1 PATCH TD STA (12:35)
--- NOTE | 2024-08-11 15:14 | Hospitalist Progress Note ---
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 Schaefer -ECOG 1 and remains treatment candidate -f/u with oncology outpatient (3) Infected venous access port: Plan: -as noted by SIRS criteria, erythema around port, concerns regarding port in past -no other clinical nidus of infection based on examination Plan: -appreciate surgery recs, removal tentatively on 08/12/2023 (4) Cancer related pain: Plan: -patient has lower back pain in site of cancer related disease Plan: -consider referral to rad onc outpatient for pain relief -start lidocaine patches, continue percocet Plan Feeding/fluids: regular (NPO after midnight) Analgesia: percocet, lidocaine patch Sedation: na Thromboprophylaxis: hold DVT prophylaxis today for procedure Head up position: na Ulcer prophylaxis: na Glycemic control: na Spontaneous breathing trial: na Bowel care: start miralax prn Indwelling catheter removal: na Deescalation of antibiotics: dapto/cefepime until culture data returns Admission and Anticipated Discharge Date Admission Date: August 10, 2024 Subjective 59-year-old female with past medical history of lung adenocarcinoma presenting for recurrent swelling and redness around port site. Noted to have lactic acidosis and concern for sepsis in the ED. Admitted to medicine for further workup, on medicine patient was started on broad-spectrum antibiotics. Surgery was consulted this morning in regards to port removal. Patient seen and examined at bedside. Also discussed course of illness with at bedside at a later time. Patient is feeling okay today. Able to do all ADLs at home. The port has not felt right for quite some time. Noted erythema around site. Feels fine otherwise and does not have a clear other possible site of illness or infection. Discussed course of illness and advance care planning with patient. Discussed typical course of metastatic disease, counseled patient on need for [facility] and further advance care planning. Patient is unsure what she would want at this time. Would like to remain full code for now and will think further. Review of Systems Review of Systems: CONSTITUTIONAL: Patient denies fevers, chills, sweats and weight changes. EYES: Patient denies any visual symptoms. EARS, NOSE, AND THROAT: No difficulties with hearing. No symptoms of rhinitis or sore throat. CARDIOVASCULAR: Patient denies chest pains, palpitations, orthopnea and paroxysmal nocturnal dyspnea. RESPIRATORY: No dyspnea on exertion, no wheezing or cough. GI: No nausea, vomiting, diarrhea, constipation, abdominal pain, hematochezia or melena. : No urinary hesitancy or dribbling. No nocturia or urinary frequency. No abnormal urethral discharge. MUSCULOSKELETAL: port site erythema NEUROLOGIC: No chronic headaches, no seizures. Patient denies numbness, tingling or weakness. PSYCHIATRIC: Patient denies problems with mood disturbance. No problems with anxiety. ENDOCRINE: No excessive urination or excessive thirst. DERMATOLOGIC: Patient denies any rashes or skin changes. Physical Exam Physical Exam: Gen: A&O 3 NAD HEENT: NCAT, EOMI, not icteric. External ears normal. No rhinorrhea. Moist mucous membranes. Neck: Supple, full range of motion, no observable masses, No meningeal sign. Lungs: No Respiratory distress. CV: RRR, no edema. Abdomen: Soft, nondistended, No rebound tenderness. MSK: Noted erythema around port site Skin: No rashes, petechiae, lesions. Normal color per patient. Neuro: Normal Gait, Grossly intact. Psych: Appropriate for situation. Results & Data Results & Data Vital Signs (Past 12 Hours) Vital Signs Temp Pulse Pulse Resp BP Pulse Ox O2 Del Method 08/11/24 14:42 98 H 08/11/24 11:40 36.4 C L 98 H 18 126/85 91 Room Air 08/11/24 07:34 36.9 C 107 H 18 104/71 92 Room Air 08/11/24 07:32 100 H Laboratory Results Laboratory Results WBC 36.03 K/ul (4.8-10.8) H* 08/11/24 01:42 RBC 3.55 M/uL (4.20-5.40) L 08/11/24 01:42 Hgb 11.1 g/dl (12.0-16.0) L 08/11/24 01:42 Hct 33.5 % (37.0-47.0) L 08/11/24 01:42 MCV 94.4 fL (80.0-100.0) 08/11/24 01:42 MCH 31.3 pg (25.0-34.0) 08/11/24 01:42 MCHC 33.1 g/dL (32.0-36.0) 08/11/24 01:42 RDW Std Deviation 57.8 fL (36.4-46.3) H 08/11/24 01:42 RDW Coeff of Glenys 16.6 % (11.5-14.5) H 08/11/24 01:42 Plt Count 138 K/uL (130-400) 08/11/24 01:42 MPV 10.2 fL (9.4-12.4) 08/11/24 01:42 Immature Gran % (Auto) 7.5 % 08/11/24 01:42 Neut % (Auto) 88.6 % 08/11/24 01:42 Lymph % (Auto) 2.8 % 08/11/24 01:42 Gaston % (Auto) 0.7 % 08/11/24 01:42 Eos % (Auto) 0.1 % 08/11/24 01:42 Baso % (Auto) 0.3 % 08/11/24 01:42 Neut # (Auto) 31.89 K/uL (1.40-6.50) H 08/11/24 01:42 Lymph # (Auto) 1.02 K/uL (1.20-3.40) L 08/11/24 01:42 Gaston # (Auto) 0.25 K/uL (0.11-0.59) 08/11/24 01:42 Eos # (Auto) 0.03 K/uL (0.00-0.50) 08/11/24 01:42 Baso # (Auto) 0.12 K/uL (0.00-0.20) 08/11/24 01:42 Immature Gran # (Auto) 2.72 K/uL (0.01-0.20) H 08/11/24 01:42 RBC Morphology Unremarkable 08/11/24 01:42 Polychromasia 1+ 08/10/24 22:15 PT 10.1 Seconds (9.0-12.0) 08/10/24 22:15 INR 0.9 (0.9-1.1) 08/10/24 22:15 APTT 22 Seconds (21-31) 08/10/24 22:15 PTT Ratio 0.8 08/10/24 22:15 Sodium 139 mmol/L (136-145) 08/11/24 01:42 Potassium 3.7 mmol/L (3.5-5.1) 08/11/24 01:42 Chloride 105 mmol/L (98-107) 08/11/24 01:42 Carbon Dioxide 26 mmol/L (21-32) 08/11/24 01:42 Anion Gap 8 (3-11) 08/11/24 01:42 BUN 11 mg/dl (6-23) 08/11/24 01:42 Creatinine 0.67 mg/dl (0.6-1.2) 08/11/24 01:42 Est Cr Clr Drug Dosing 93.4 ml/min 08/11/24 01:42 eGFR 100.00 08/11/24 01:42 BUN/Creatinine Ratio 16.4 (10-20) 08/11/24 01:42 Glucose 96 mg/dl (70-99(Fasting)) 08/11/24 01:42 Estimat Average Glucose 105 mg/dl 08/10/24 22:15 Hemoglobin A1c 5.3 % (4.5-5.6) 08/10/24 22:15 Lactate 1.7 mmol/L (0.4-2.0) 08/11/24 06:16 Calcium 8.7 mg/dl (8.6-10.3) 08/11/24 01:42 Magnesium 1.9 mg/dl (1.7-2.4) 08/11/24 01:42 Total Bilirubin 0.5 mg/dl (0.2-1.0) 08/10/24 22:15 AST 21 U/L (13-39) 08/10/24 22:15 ALT 26 U/L (7-52) 08/10/24 22:15 Alkaline Phosphatase 90 U/L (34-104) 08/10/24 22:15 Troponin I High Sens 11.3 pg/ml (0-14) 08/10/24:15 Total Protein 6.8 gm/dl (6.0-8.3) 08/10/24:15 Albumin 4.0 gm/dl (3.4-5.0) 08/10/24:15 Globulin 2.8 gm/dl (2.5-4.0) 08/10/24:15 Albumin/Globulin Ratio 1.4 (0.9-2) 08/10/24: Procalcitonin 0.19 ng/ml (0-0.5) 08/10/24:15 Urine Color Yellow 08/10/24 22:20 Urine Appearance Clear (Clear) 08/10/24: Urine pH 5.5 (4.5-7.5) 08/10/24: Ur Specific [place] 1.012 (1.000-1.030) 08/10/24 22:20 Urine Protein Negative (Negative) 08/10/24:20 Urine Glucose (UA) Negative (Negative) 08/10/24: Urine Ketones Negative (Negative) 08/10/24: Urine Blood 1+ (Negative) H 08/10/24:20 Urine Nitrite Negative (Negative) 08/10/24: Urine Bilirubin Negative (Negative) 08/10/24: Urine Urobilinogen Negative (Negative) 08/10/24:20 Ur Leukocyte Esterase 1+ (Negative) H 08/10/24 22:20 Urine WBC (Auto) 6-10 /hpf (0-5) H 08/10/24:20 Urine RBC (Auto) 0-2 /hpf (0-2) 08/10/24: U Hyaline Cast (Auto) 0-2 /lpf (0-2) 08/10/24:20 U Epithel Cells (Auto) 3-5 /hpf (0-2) H 08/10/24:20 Urine Bacteria (Auto) 1+ (None Seen) H 08/10/24 22:20 Adenovirus (PCR) Not Detected (NotDetected) 08/10/24 22:20 B. pertussis DNA (PCR) Not Detected (NotDetected) 08/10/24 22:20 B.parapertussis DNA PCR Not Detected (NotDetected) 08/10/24 22:20 C. pneumoniae DNA (PCR) Not Detected (NotDetected) 08/10/24 22:20 Coronavirus OC43 (PCR) Not Detected (NotDetected) 08/10/24 22:20 Coronavirus HKU1 (PCR) Not Detected (NotDetected) 08/10/24 22:20 Coronavirus 229E (PCR) Not Detected (NotDetected) 08/10/24 22:20 SARS-CoV-2 (PCR) Not Detected (NotDetected) 08/10/24 22:20 Coronavirus NL63 (PCR) Not Detected (NotDetected) 08/10/24 22:20 Human Metapneumovir PCR Not Detected (NotDetected) 08/10/24 22:20 Influenza Type A (PCR) Not Detected (NotDetected) 08/10/24 22:20 Influenza Type B (PCR) Not Detected (NotDetected) 08/10/24 22:20 M. pneumoniae (PCR) Not Detected (NotDetected) 08/10/24 22:20 Parainfluenza 1 (PCR) Not Detected (NotDetected) 08/10/24 22:20 Parainfluenza 2 (PCR) Not Detected (NotDetected) 08/10/24 22:20 Parainfluenza 3 (PCR) Not Detected (NotDetected) 08/10/24 22:20 Parainfluenza 4 (PCR) Not Detected (NotDetected) 08/10/24 22:20 RSV (PCR) Not Detected (NotDetected) 08/10/24 22:20 Entero/Rhino (PCR) Not Detected (NotDetected) 08/10/24 22:20 Impressions Chest X-Ray 08/10/24 21:45 Exam(s): XR CXR 1 VIEW EXAM: XR Chest, 1 View CLINICAL HISTORY: Reason for exam: Sepsis. TECHNIQUE: Frontal view of the chest. COMPARISON: No relevant prior studies available. FINDINGS: Lungs: Small amount of atelectasis or infiltrate in the left lower lung. Pleural space: Unremarkable. No pneumothorax. Heart: Unremarkable. No cardiomegaly. Mediastinum: Unremarkable. Normal mediastinal contour. Bones/joints: Mild osteophytosis in the lower thoracic spine. No acute fracture. Tubes, lines and devices: Port-A-Cath on the right with the catheter tip in the superior vena cava. Upper abdomen: There is no pneumoperitoneum under the diaphragm. IMPRESSION: 1. Small amount of atelectasis or infiltrate in the left lower lung. 2. Port-A-Cath on the right with the catheter tip in the superior vena cava. Electronically signed by: Jamie Ricks MD 08/10/24 23:[address] 08/10/24 23:59 EXAM: CT chest diagnostic wo con CLINICAL HISTORY: recurrent R chest wall swelling TECHNIQUE: Contiguous axial images were obtained from the neck base through the upper abdomen without contrast. In addition, sagittal and coronal reconstructions were performed to potentially increase the sensitivity for the detection of disease. CT scan was performed according to ALARA (as low as reasonable achievable). COMPARISON: 03/07/2024 11:30:19 HEALTH NURSE. FINDINGS: Focal fibrotic scar is noted involving right apical segment. Few atelectatic bands are noted involving left lower lobe and lingula Diffuse centrilobular emphysema noted involving both lungs. Subtle few tiny ground-glass area are noted involving right upper lobe. Rest of lungs are clear. The central airways are patent. There are no pleural effusions. No pneumothorax is seen. Evaluation of the mediastinum and amalia is limited due to the lack of intravenous contrast. No axillary or mediastinal adenopathy is identified. The thyroid is unremarkable. The heart, aorta, and pulmonary arteries are of normal size and configuration. There are no appreciable coronary artery and aortic atherosclerotic calcifications. No pericardial effusion is identified. Imaged portions of the upper abdomen are unremarkable. Sclerotic lesions seen in left 5th rib. Multiple sclerotic foci also seen in thoracic vertebral bodies. IMPRESSION: Focal fibrotic scar is noted involving right apical segment. -stable. Few atelectatic bands are noted involving left lower lobe and lingula - sequelae of previous infection Diffuse centrilobular emphysema noted involving both lungs. -stable. Subtle few tiny ground-glass area are noted involving right upper lobe. -stable. Sclerotic lesions seen in left 5th rib. Multiple sclerotic foci also seen in thoracic vertebral bodies. Likely metastatic. Increased in extent and size as compared to prior study- suggestive of progressive disease. Electronically signed by Michael Herzog 08-11-2024 01:50 AM (3) Infected venous access port Encounter type: initial encounter Qualified Code(s): T80.219A - Unspecified infection due to central venous catheter, initial encounter
[2024-08-11] MEDS ORDERED: POLYETHYLENE (MIRALAX) 17 GM PACK PO PRN (15:15)
[2024-08-11] MEDS ORDERED: oxyCODONE HCL IR 5 MG TAB (IMMEDIATE RELEASE) PO PRN (15:59)
[2024-08-11] MEDS: FERROUS SULFATE 325 MG TAB PO SCH (20:54)
[2024-08-11] MEDS: DULoxetine HCL 30 MG CAP PO SCH (20:54)
[2024-08-11] MEDS: traZODone HCL 100 MG TAB PO SCH (22:51)
[2024-08-11] MEDS: DAPTOmycin 275 MG in SYRINGE 0 ML IV SCH (22:51)
[2024-08-12 05:01] LABS: Hematocrit (blood only) 36.6 % (37.0-47.0); Hemoglobin 12.7 g/dl (12.0-16.0); Mean Corpuscular Hemoglobin 32.1 pg (25.0-34.0); Mean Corpuscular Hgb Conc 34.7 g/dL (32.0-36.0); Mean Corpuscular Volume 92.4 fL (80.0-100.0); Mean Platelet Volume 10.2 fL (9.4-12.4); Platelet Count 170 K/uL (130-400); RDW Standard Deviation 55.2 fL (36.4-46.3); Red Blood Count 3.96 M/uL (4.20-5.40); White Blood Count 25.27 K/ul (4.8-10.8)
[2024-08-12 05:11] LABS: BUN Creatinine Ratio 25.9 (10-20); Calcium 9.6 mg/dl (8.6-10.3); Creatinine Clr Calc Pharmacy 115.7 ml/min; Potassium 3.6 mmol/L (3.5-5.1)
[2024-08-12] MEDS: SODIUM CHLORIDE 0.9% 500 ML IV ONE (08:32)
[2024-08-12] MEDS: AZITHROMYCIN 250 MG TAB PO SCH (09:02)
[2024-08-12] MEDS ORDERED: fentaNYL citrate PF 100 MCG/2 ML VIAL ONE (09:23)
[2024-08-12] MEDS ORDERED: PROPOFOL IV EMULSION 10 MG/ML 20 ML VIAL IV ONE ×2 (09:23→10:13)
[2024-08-12] MEDS ORDERED: MIDAZOLAM HCL 1 MG/ML 2ML VIAL ONE ×2 (09:23→10:14)
--- NOTE | 2024-08-12 09:39 | Surgery Progress Note ---
Date of Service August 12, 2024 Assessment & Plan (1) Infected venous access port: Plan: Proceed with port removal today Consent was obtained, risks discussed including bleeding, infection, catheter fracture Admission and Anticipated Discharge Date Admission Date: August 10, 2024 Subjective Pt seen and examined. No acute events overnight. Afebrile. Review of Systems Constitutional: no fever and no chills Respiratory: no cough and no dyspnea Cardiovascular: no chest pain and no dyspnea on exertion Gastrointestinal: no abdominal pain, no early satiety, no nausea and no vomiting Integumentary: no acne, no skin ulcer and no sores Psychiatric: no behavioral changes and no depression Hematologic / Lymphatic: no easy bleeding and no easy bruising Physical Exam Constitutional: WD/WN, vitals as above Respiratory: normal respiratory effort, lungs clear to auscultation Cardiovascular: RRR, no murmur, no edema Chest (Breasts): Additional Comments: Port on right chest with some overlying erythema, no abscess Gastrointestinal (Abdomen): normal bowel sounds, soft, nontender, no hepatosplenomegaly Skin: no rashes, warm and dry Psychiatric: A+Ox3, euthymic affect Results & Data Vital Signs (Past 12 Hours) Vital Signs Temp Pulse Pulse Resp BP Pulse Ox O2 Del Method 08/12/24 09:23 36.8 C 113 H 18 117/87 91 Room Air 08/12/24 07:54 36.5 C 124 H 18 115/77 91 Room Air 08/12/24 07:40 124 H 08/12/24 03:51 36.8 C 127 H 18 109/73 94 Room Air 08/12/24 00:30 36.7 C 116 H 18 95 Room Air 08/11/24 23:18 37.8 C H 131 H 18 110/75 92 Room Air 08/11/24 21:44 115 H PG Care Time/CCT Total # of Minutes Spent Total Time Spent with Patient: Total time spent is greater than 50% in coordination of care (as documented) at patient's floor/unit and/or counseling patient: Coding Level of Care Code 33968 SUB INP/OBS CARE 08/20MIN Diagnoses Infection of venous access port, initial encounter T80.219A Encounter type: initial encounter (1) Infected venous access port Encounter type: initial encounter Qualified Code(s): T80.219A - Unspecified infection due to central venous catheter, initial encounter
[2024-08-12] MEDS ORDERED: Nursing to Pharmacy Communication SCH (09:45)
[2024-08-12] MEDS ORDERED: fentaNYL citrate PF 100 MCG/2 ML VIAL IV PRN (09:54)
[2024-08-12] MEDS ORDERED: ATROPINE SULFATE 0.1 MG/ML 10ML SYR IV PRN (09:54)
[2024-08-12] MEDS ORDERED: ePHEDrine sulfate 50 MG/ML AMP IV PRN (09:54)
[2024-08-12] MEDS ORDERED: ONDANSETRON INJ 2 MG/ML 2 ML VIAL IV PRN (09:54)
[2024-08-12] MEDS ORDERED: HYDROmorphone INJ 1 MG/ML SYRINGE IV PRN (09:54)
--- NOTE | 2024-08-12 10:01 | Anesthesiology Consultation ---
Date of Service August 12, 2024 Assessment & Plan ASA ASA4 Proposed Anesthesia Anesthesia Type: MAC Risk / Benefits Reviewed With: PT / POA / Parent / Guardian, Accepts Plan and Informed Consent Obtained History Surgery Operation Date: 08/12/24 12:15 Proposed Procedures p Infusaport Removal - Gerson Du, DO Height/Weight Height: 5 ft 4 in Weight: 83.3 kg Allergies Allergy/AdvReac Type Severity Reaction Status Date / Time Iodinated Contrast Media Allergy Unknown Rash Verified 08/10/24 23:28 Medications Home Medications Medication Instructions Recorded Confirmed Last Taken atorvastatin 40 mg tablet 40 mg PO QAM 04/27/24 08/10/24 08/10/24 cholecalciferol (vitamin D3) 50 50 mcg PO HS 04/27/24 08/10/24 08/09/24 mcg (2,000 unit) capsule clonazepam 0.5 mg tablet 0.5 mg PO DAILY PRN anxiety 04/27/24 08/10/24 Unknown conjugated estrogens 0.625 mg 0.625 mg PO HS 04/27/24 08/10/24 08/09/24 tablet (Premarin) duloxetine 30 mg capsule,delayed 30 mg PO HS 04/27/24 08/10/24 08/09/24 release ferrous sulfate 325 mg (65 mg 325 mg PO HS 04/27/24 08/10/24 08/09/24 iron) tablet oxycodone-acetaminophen 5 mg-325 2 tab PO Q6H PRN pain 04/27/24 08/10/24 Unknown mg tablet (Percocet) pantoprazole 40 mg tablet,delayed 40 mg PO BID 04/27/24 08/10/24 08/10/24 release tiotropium 2.5 mcg-olodaterol 2.5 2 puff inhalation QAM 04/27/24 08/10/24 08/10/24 mcg/actuation mist for inhalation (Stiolto Respimat) trazodone 50 mg tablet 100 mg PO HS 04/27/24 08/10/24 08/09/24 allopurinol 100 mg tablet 100 mg PO QAM 08/10/24 08/10/24 08/10/24 aspirin 81 mg tablet,delayed 81 mg PO DAILY 08/10/24 08/10/24 Unknown release metoprolol succinate 25 mg 12.5 mg PO DAILY 08/10/24 08/10/24 Unknown tablet,extended release 24 hr olanzapine 10 mg tablet See Rx Instructions .Route .COMPLEX 08/10/24 08/10/24 Unknown ondansetron HCl 8 mg tablet 8 mg PO Q8 PRN Nausea 08/10/24 08/10/24 Unknown sulfamethoxazole 800 1 tab PO AMHS 08/10/24 08/10/24 08/10/24 mg-trimethoprim 160 mg tablet am Active Medications Generic Name Dose Route Start Last Admin Trade Name Freq PRN Reason Stop Dose Admin Acetaminophen 650 mg 08/11/24 00:07 08/11/24 12:34 Acetaminophen 325 Mg Tab PO 09/10/24 00:06 650 mg QID PRN Administration pain/fever Allopurinol 100 mg 08/11/24 09:00 08/12/24 08:32 Allopurinol 100 Mg Tab PO 09/10/24 08:59 100 mg QAM BELL Administration Aspirin 81 mg 08/11/24 09:00 08/12/24 08:32 Aspirin 81 Mg Ectab PO 09/10/24 08:59 81 mg DAILY BELL Administration Azithromycin 500 mg 08/12/24 09:00 08/12/24 09:02 Azithromycin 250 Mg Tab PO 08/17/24 08:59 500 mg QAM BELL Administration Duloxetine HCl 30 mg 08/11/24 21:00 08/11/24 20:54 Duloxetine Hcl 30 Mg Cap PO 09/10/24 20:59 30 mg HS BELL Administration Enoxaparin Sodium 40 mg 08/11/24 09:00 08/11/24 08:08 Enoxaparin Inj 40 Mg/0.4 Ml Syr SQ 09/10/24 08:59 40 mg QAM BELL Administration Ferrous Sulfate 325 mg 08/11/24 21:00 08/11/24 20:54 Ferrous Sulfate 325 Mg Tab PO 09/10/24 20:59 325 mg HS BELL Administration Daptomycin 275 mg/ Syringe 5.5 mls @ 2.75 mls/min 08/12/24 00:00 08/11/24 22:51 IV 08/19/24 00:00 2.75 mls/min Q24H BELL Administration Protocol Cefepime HCl 2,000 mg in 20 mls @ 5 mls/min 08/11/24 06:00 08/12/24 05:59 Maxipime 2000mg IV 08/18/24 05:59 5 mls/min Q8H BELL Administration Protocol Metoprolol Succinate 12.5 mg 08/11/24 09:00 08/12/24 08:33 Metoprolol Succ 25mg Ext Rel Tab PO 09/10/24 08:59 12.5 mg DAILY BELL Administration Pantoprazole Sodium 40 mg 08/11/24 09:00 08/12/24 08:34 Pantoprazole 40 Mg Tab PO 09/10/24 08:59 40 mg BID BELL Administration Trazodone HCl 100 mg 08/11/24 21:00 08/11/24 22:51 Trazodone Hcl 100 Mg Tab PO 09/10/24 20:59 100 mg HS BELL Administration Umeclidinium/Vilanterol 1 puffs 08/11/24 09:00 08/12/24 08:33 Umeclidinium/Vilanterol 62.5/25mcg 7 Puffs/Inhaler INH 09/10/24 08:59 1 puffs QAM BELL Administration NPO Date Last Intake of Fluids: 08/11/24 Time Last Intake of Fluids: 22:00 Last Intake of Fluids Comment: sips this am Date Last Intake of Solids: 08/11/24 Time Last Intake of Solids: 18:00 Past Medical History Medical History Melanoma Lung cancer COPD (chronic obstructive pulmonary disease) Anxiety GERD (gastroesophageal reflux disease) History of tobacco abuse Exercise / Class Metabolic Activity II 4-5 Yardwork/Stairs/Walk up hill Past Family History Family History Father No problems noted. Mother Cancer, Onset Age: 71 pancreatic cancer Daughter No problems noted. Son No problems noted. Son No problems noted. Past Surgical History Surgical History H/O breast augmentation History of carpal tunnel surgery History of surgery on arm History of bunionectomy History of tonsillectomy History of thoracotomy History of lung surgery History of lobectomy of lung Past Anesthesia History No Hx of Anesthesia Complications and No Family Hx of Anesthesia Complications History of PONV No Hx of PONV and No Hx of Motion Sickness Social History Smoking Status: Former smoker Hx Alcohol Use: No Hx Substance Use: No Review of Systems denies fever/cough/ colds/ chest pain/ SOB/ WHIT denies WHIT Physical Exam Vital Signs Last Vital Signs Temp 36.8 C 08/12/24 09:23 Pulse 113 H 08/12/24 09:23 Resp 18 08/12/24 09:23 BP 117/87 08/12/24 09:23 Pulse Ox 91 08/12/24 09:23 O2 Del Method Room Air 08/12/24 09:23 ENMT Mouth: no TMJ abnormality and no dentition abnormality Thyromental Distance: > or= 3.5 Finger Breadths Mallampati Class: II Neck neck extension not limited Respiratory normal respiratory effort; no respiratory distress Auscultation: lungs clear to auscultation bilaterally Cardiovascular Rate/Rhythm: regular rhythm and + tachycardic Neurologic moves all extremities Psychiatric Orientation: alert and oriented x 3 Testing Laboratory Results 08/12/24 04:40 08/12/24 04:40 PT 10.1 Seconds (9.0-12.0) 08/10/24 22:15 INR 0.9 (0.9-1.1) 08/10/24 22:15 APTT 22 Seconds (21-31) 08/10/24 22:15 Hemoglobin A1c 5.3 % (4.5-5.6) 08/10/24 22:15 Urine Color Yellow 08/10/24 22:20 Urine Appearance Clear (Clear) 08/10/24 22:20 Urine pH 5.5 (4.5-7.5) 08/10/24 22:20 Ur Specific [place] 1.012 (1.000-1.030) 08/10/24 22:20 Urine Protein Negative (Negative) 08/10/24 22:20 Urine Glucose (UA) Negative (Negative) 08/10/24 22:20 Urine Ketones Negative (Negative) 08/10/24 22:20 Urine Nitrite Negative (Negative) 08/10/24 22:20 Ur Leukocyte Esterase 1+ (Negative) H 08/10/24 22:20 Urine WBC (Auto) 6-10 /hpf (0-5) H 08/10/24 22:20 Urine RBC (Auto) 0-2 /hpf (0-2) 08/10/24 22:20 U Hyaline Cast (Auto) 0-2 /lpf (0-2) 08/10/24 22:20 U Epithel Cells (Auto) 3-5 /hpf (0-2) H 08/10/24 22:20 Urine Bacteria (Auto) 1+ (None Seen) H 08/10/24 22:20 08/10/24 22:15 Aerobic Blood Culture - Preliminary Blood No growth in Aerobic bottle after 24 hours. Anaerobic Blood Culture - Preliminary No growth in Anaerobic bottle after 24 hours. 08/10/24 22:15 Aerobic Blood Culture - Preliminary Blood No growth in Aerobic bottle after 24 hours. Anaerobic Blood Culture - Preliminary No growth in Anaerobic bottle after 24 hours. 08/10/24 22:20 Urine Culture - Preliminary Urine,Clean Catch No growth - Less than 1,000 colonies/mL, Final report to follow.
[2024-08-12] MEDS: BUPIVACAINE/EPINEPHRINE 0.25% 1:200,000 30 ML VIAL ONE (10:21)
--- NOTE | 2024-08-12 10:30 | Operative Report ---
PG Post Operative Report Pre & Post Diagnosis Operation Date: 08/12/24 12:15 Pre-Op Diagnosis: Sepsis Post-Op Diagnosis: Sepsis I identified the patient and participated in the time-out.: Yes Procedure Operation Date: 08/12/24 12:15 Actual Procedures p Infusaport Removal(Not Applicable) - Gerson Du DO Surgeon Gerson Du DO Fringing Machine Operator None Estimated Blood Loss 5 Findings Consistent with Post-Op Diagnosis Mediport and catheter intact upon removal Specimens Catheter tip for culture Drains None Anesthesia Type MAC Complications none Disposition Disposition: Recovery Room Indications 59 yo female with infected port Description of Procedure The patient was brought to the OR and placed in the supine position. At this time she underwent MAC anesthesia without problem. Her right chest was prepped and draped in the usual sterile fashion. She was given appropriate pre- operative antibiotics. Timeout was called, procedure was verified as Mediport removal. Surgical, anesthesia and nursing teams agreed and the procedure was begun. Patient was then placed in Trendelenburg position. After injection of 0.25% Marcaine with epinephrine, a transverse incision directly through her old incision was made using a #15 blade scalpel. This was carried down directly to the port using electrocautery. At this time the catheter was delivered out of the incision. The sutures on the mediport itself were then cut and the entire mediport/catheter complex removed and passed off as specimen. At this time the incision was irrigated until clear. Hemostasis was achieved using electrocautery. Hemostasis was complete. Deep dermal layer of skin was closed using 3-0 Vicryl and the skin was closed using 4-0 Monocryl. Sterile dressing was applied. All needle and sponge counts were correct x 2. The patient was then awakened from anesthesia and transported to PACU in stable condition. I attest to the content of the Intraoperative Record and any orders documented therein. Any exceptions are noted below.
--- NOTE | 2024-08-12 10:30 | Post Operative Brief Note ---
PG Immediate Post Op with CF Date of Surgery August 12, 2024 Pre & Post Diagnosis Operation Date: 08/12/24 12:15 Pre-Op Diagnosis: Sepsis Post-Op Diagnosis: Sepsis I identified the patient and participated in the time-out.: Yes Procedure Operation Date: 08/12/24 12:15 Actual Procedures p Infusaport Removal(Not Applicable) - Gerson Du DO Surgeon Gerson Du DO Photovoltaic Technician None Estimated Blood Loss 5 Findings Consistent with Post-Op Diagnosis Specimens Specimen Description: Microbiology 1. Access Port-Aerobic, Anaerobic, and gram Anesthesia Type MAC Complications none Disposition Disposition: Recovery Room
--- NOTE | 2024-08-12 10:47 | Anesthesiology Progress Note ---
Date of Service August 12, 2024 Anesthesia Post Procedure Vital Signs Vital Signs: Temp Pulse Pulse Pulse Resp BP Pulse Ox 08/12/24 10:34 36.3 C L 111 H 17 97/82 L 96 08/12/24 09:23 36.8 C 113 H 18 117/87 91 08/12/24 07:54 36.5 C 124 H 18 115/77 91 08/12/24 07:40 124 H 08/12/24 03:51 36.8 C 127 H 18 109/73 94 08/12/24 00:30 36.7 C 116 H 18 95 08/11/24 23:18 37.8 C H 131 H 18 110/75 92 08/11/24 21:44 115 H 08/11/24 19:30 36.6 C 105 H 18 127/87 95 08/11/24 15:25 36.9 C 100 H 18 113/74 95 08/11/24 14:42 98 H 08/11/24 11:40 36.4 C L 98 H 18 126/85 91 O2 Del Method O2 Flow Rate 08/12/24 10:34 Nasal Cannula 2 08/12/24 09:23 Room Air 08/12/24 07:54 Room Air 08/12/24 07:40 08/12/24 03:51 Room Air 08/12/24 00:30 Room Air 08/11/24 23:18 Room Air 08/11/24 21:44 08/11/24 19:30 Room Air 08/11/24 15:25 Room Air 08/11/24 14:42 08/11/24 11:40 Room Air Pain Intensity Head: Pain Intensity: 3 Transfer of Care Handoff Completed per policy Notes Mental Status: alert / awake / arousable and participated in evaluation Patient Amnestic to Procedure: Yes Nausea / Vomiting: adequately controlled Pain: adequately controlled Airway Patency, RR, SpO2: stable & adequate BP & HR: stable & adequate Hydration State: stable & adequate Anesthetic Complications: no major complications apparent and Pt Satisfied with anesthetic care
[2024-08-12] MEDS: SODIUM CHLORIDE 0.9% 1,000 ML IV SCH (11:08)
--- NOTE | 2024-08-12 16:55 | Hospitalist Progress Note ---
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 Schaefer -ECOG 1 and remains treatment candidate -f/u with oncology outpatient (3) Infected venous access port: Plan: -as noted by SIRS criteria, erythema around port, concerns regarding port in past -no other clinical nidus of infection based on examination -now s/p removal (4) Cancer related pain: Plan: -patient has lower back pain in site of cancer related disease Plan: -consider referral to [facility] onc outpatient for pain relief -start lidocaine patches, continue percocet Plan Feeding/fluids: regular (NPO after midnight) Analgesia: percocet, lidocaine patch Sedation: na Thromboprophylaxis: restart DVT prophylaxis tomorrow Head up position: na Ulcer prophylaxis: na Glycemic control: na Spontaneous breathing trial: na Bowel care: start miralax prn Indwelling catheter removal: na Deescalation of antibiotics: dapto/cefepime until culture data returns Admission and Anticipated Discharge Date Admission Date: August 10, 2024 Subjective Patient seen and examined at bedside. Seen after procedure. Patient tolerated procedure well and feels much better post procedure. Continues to improve, less fatigue and weakness. Review of Systems Review of Systems: CONSTITUTIONAL: Patient denies fevers, chills, sweats and weight changes. EYES: Patient denies any visual symptoms. EARS, NOSE, AND THROAT: No difficulties with hearing. No symptoms of rhinitis or sore throat. CARDIOVASCULAR: Patient denies chest pains, palpitations, orthopnea and paroxysmal nocturnal dyspnea. RESPIRATORY: No dyspnea on exertion, no wheezing or cough. GI: No nausea, vomiting, diarrhea, constipation, abdominal pain, hematochezia or melena. : No urinary hesitancy or dribbling. No nocturia or urinary frequency. No abnormal urethral discharge. MUSCULOSKELETAL: improved NEUROLOGIC: No chronic headaches, no seizures. Patient denies numbness, tingling or weakness. PSYCHIATRIC: Patient denies problems with mood disturbance. No problems with anxiety. ENDOCRINE: No excessive urination or excessive thirst. DERMATOLOGIC: Patient denies any rashes or skin changes. Physical Exam Physical Exam: Gen: A&O 3 NAD HEENT: NCAT, EOMI, not icteric. External ears normal. No rhinorrhea. Moist mucous membranes. Neck: Supple, full range of motion, no observable masses, No meningeal sign. Lungs: No Respiratory distress. CV: RRR, no edema. Abdomen: Soft, nondistended, No rebound tenderness. MSK: s/p port removal Skin: No rashes, petechiae, lesions. Normal color per patient. Neuro: Normal Gait, Grossly intact. Psych: Appropriate for situation. Results & Data Results & Data Vital Signs (Past 12 Hours) Vital Signs Temp Pulse Pulse Pulse Resp BP Pulse Ox 08/12/24 16:17 36.6 C 113 H 20 107/90 93 08/12/24 14:03 118 H 08/12/24 11:22 36.6 C 105 H 18 99/69 L 93 08/12/24 10:50 36.4 C L 105 H 17 114/78 96 08/12/24 10:40 106 H 17 114/77 96 08/12/24 10:34 36.3 C L 111 H 17 97/82 L 96 08/12/24 09:23 36.8 C 113 H 18 117/87 91 08/12/24 07:54 36.5 C 124 H 18 115/77 91 08/12/24 07:40 124 H O2 Del Method O2 Flow Rate 08/12/24 16:17 Room Air 08/12/24 14:03 08/12/24 11:22 Room Air 08/12/24 10:50 Nasal Cannula 2 08/12/24 10:40 Nasal Cannula 2 08/12/24 10:34 Nasal Cannula 2 08/12/24 09:23 Room Air 08/12/24 07:54 Room Air 08/12/24 07:40 Laboratory Results Laboratory Results WBC 25.27 K/ul (4.8-10.8) H 08/12/24 04:40 RBC 3.96 M/uL (4.20-5.40) L 08/12/24 04:40 Hgb 12.7 g/dl (12.0-16.0) 08/12/24 04:40 Hct 36.6 % (37.0-47.0) L 08/12/24 04:40 MCV 92.4 fL (80.0-100.0) 08/12/24 04:40 MCH 32.1 pg (25.0-34.0) 08/12/24 04:40 MCHC 34.7 g/dL (32.0-36.0) 08/12/24 04:40 RDW Std Deviation 55.2 fL (36.4-46.3) H 08/12/24 04:40 RDW Coeff of [place] 16.0 % (11.5-14.5) H 08/12/24 04:40 Plt Count 170 K/uL (130-400) 08/12/24 04:40 MPV 10.2 fL (9.4-12.4) 08/12/24 04:40 Immature Gran % (Auto) 7.5 % 08/11/24 01:42 Neut % (Auto) 88.6 % 08/11/24 01:42 Lymph % (Auto) 2.8 % 08/11/24 01:42 [place] % (Auto) 0.7 % 08/11/24 01:42 Eos % (Auto) 0.1 % 08/11/24 01:42 Baso % (Auto) 0.3 % 08/11/24 01:42 Neut # (Auto) 31.89 K/uL (1.40-6.50) H 08/11/24 01:42 Lymph # (Auto) 1.02 K/uL (1.20-3.40) L 08/11/24 01:42 [place] # (Auto) 0.25 K/uL (0.11-0.59) 08/11/24 01:42 Eos # (Auto) 0.03 K/uL (0.00-0.50) 08/11/24 01:42 Baso # (Auto) 0.12 K/uL (0.00-0.20) 08/11/24 01:42 Immature Gran # (Auto) 2.72 K/uL (0.01-0.20) H 08/11/24 01:42 RBC Morphology Unremarkable 08/11/24 01:42 Polychromasia 1+ 08/10/24 22:15 PT 10.1 Seconds (9.0-12.0) 08/10/24 22:15 INR 0.9 (0.9-1.1) 08/10/24 22:15 APTT 22 Seconds (21-31) 08/10/24 22:15 PTT Ratio 0.8 08/10/24 22:15 Sodium 136 mmol/L (136-145) 08/12/24 04:40 Potassium 3.6 mmol/L (3.5-5.1) 08/12/24 04:40 Chloride 102 mmol/L (98-107) 08/12/24 04:40 Carbon Dioxide 23 mmol/L (21-32) 08/12/24 04:40 Anion Gap 11 (3-11) 08/12/24 04:40 BUN 14 mg/dl (6-23) 08/12/24 04:40 Creatinine 0.54 mg/dl (0.6-1.2) L 08/12/24 04:40 Est Cr Clr Drug Dosing 115.7 ml/min 08/12/24 04:40 eGFR 105.33 08/12/24 04:40 BUN/Creatinine Ratio 25.9 (10-20) H 08/12/24 04:40 Glucose 123 mg/dl (70-99(Fasting)) H 08/12/24 04:40 Estimat Average Glucose 105 mg/dl 08/10/24 22:15 Hemoglobin A1c 5.3 % (4.5-5.6) 08/10/24 22:15 Lactate 1.7 mmol/L (0.4-2.0) 08/11/24 06:16 Calcium 9.6 mg/dl (8.6-10.3) 08/12/24 04:40 Magnesium 1.9 mg/dl (1.7-2.4) 08/11/24 01:42 Total Bilirubin 0.5 mg/dl (0.2-1.0) 08/10/24 22:15 AST 21 U/L (13-39) 08/10/24 22:15 ALT 26 U/L (7-52) 08/10/24 22:15 Alkaline Phosphatase 90 U/L (34-104) 08/10/24 22:15 Troponin I High Sens 11.3 pg/ml (0-14) 08/10/24 22:15 Total Protein 6.8 gm/dl (6.0-8.3) 08/10/24 22:15 Albumin 4.0 gm/dl (3.4-5.0) 08/10/24 22:15 Globulin 2.8 gm/dl (2.5-4.0) 08/10/24 22:15 Albumin/Globulin Ratio 1.4 (0.9-2) 08/10/24:15 Procalcitonin 0.19 ng/ml (0-0.5) 08/10/24 22:15 Urine Color Yellow 08/10/24 22:20 Urine Appearance Clear (Clear) 08/10/24 22: Urine pH 5.5 (4.5-7.5) 08/10/24 22:20 Ur Specific [place] 1.012 (1.000-1.030) 08/10/24 22:20 Urine Protein Negative (Negative) 08/10/24 22:20 Urine Glucose (UA) Negative (Negative) 08/10/24: Urine Ketones Negative (Negative) 08/10/24: Urine Blood 1+ (Negative) H 08/10/24 22:20 Urine Nitrite Negative (Negative) 08/10/24:20 Urine Bilirubin Negative (Negative) 08/10/24:20 Urine Urobilinogen Negative (Negative) 08/10/24:20 Ur Leukocyte Esterase 1+ (Negative) H 08/10/24 22:20 Urine WBC (Auto) 6-10 /hpf (0-5) H 08/10/24 22:20 Urine RBC (Auto) 0-2 /hpf (0-2) 08/10/24: U Hyaline Cast (Auto) 0-2 /lpf (0-2) 08/10/24 22:20 U Epithel Cells (Auto) 3-5 /hpf (0-2) H 08/10/24 22:20 Urine Bacteria (Auto) 1+ (None Seen) H 08/10/24 22:20 Adenovirus (PCR) Not Detected (NotDetected) 08/10/24 22:20 B. pertussis DNA (PCR) Not Detected (NotDetected) 08/10/24 22:20 B.parapertussis DNA PCR Not Detected (NotDetected) 08/10/24 22:20 C. pneumoniae DNA (PCR) Not Detected (NotDetected) 08/10/24 22:20 Coronavirus OC43 (PCR) Not Detected (NotDetected) 08/10/24 22:20 Coronavirus HKU1 (PCR) Not Detected (NotDetected) 08/10/24 22:20 Coronavirus 229E (PCR) Not Detected (NotDetected) 08/10/24 22:20 SARS-CoV-2 (PCR) Not Detected (NotDetected) 08/10/24 22:20 Coronavirus NL63 (PCR) Not Detected (NotDetected) 08/10/24 22:20 Human Metapneumovir PCR Not Detected (NotDetected) 08/10/24 22:20 Influenza Type A (PCR) Not Detected (NotDetected) 08/10/24 22:20 Influenza Type B (PCR) Not Detected (NotDetected) 08/10/24 22:20 M. pneumoniae (PCR) Not Detected (NotDetected) 08/10/24 22:20 Parainfluenza 1 (PCR) Not Detected (NotDetected) 08/10/24 22:20 Parainfluenza 2 (PCR) Not Detected (NotDetected) 08/10/24 22:20 Parainfluenza 3 (PCR) Not Detected (NotDetected) 08/10/24 22:20 Parainfluenza 4 (PCR) Not Detected (NotDetected) 08/10/24 22:20 RSV (PCR) Not Detected (NotDetected) 08/10/24 22:20 Entero/Rhino (PCR) Not Detected (NotDetected) 08/10/24 22:20 Impressions Chest X-Ray 08/10/24 21:45 Exam(s): XR CXR 1 VIEW EXAM: XR Chest, 1 View CLINICAL HISTORY: Reason for exam: Sepsis. TECHNIQUE: Frontal view of the chest. COMPARISON: No relevant prior studies available. FINDINGS: Lungs: Small amount of atelectasis or infiltrate in the left lower lung. Pleural space: Unremarkable. No pneumothorax. Heart: Unremarkable. No cardiomegaly. Mediastinum: Unremarkable. Normal mediastinal contour. Bones/joints: Mild osteophytosis in the lower thoracic spine. No acute fracture. Tubes, lines and devices: Port-A-Cath on the right with the catheter tip in the superior vena cava. Upper abdomen: There is no pneumoperitoneum under the diaphragm. IMPRESSION: 1. Small amount of atelectasis or infiltrate in the left lower lung. 2. Port-A-Cath on the right with the catheter tip in the superior vena cava. Electronically signed by: Jamie Ricks MD 08/10/24 23:[address] 08/10/24 23:59 EXAM: CT chest diagnostic wo con CLINICAL HISTORY: recurrent R chest wall swelling TECHNIQUE: Contiguous axial images were obtained from the neck base through the upper abdomen without contrast. In addition, sagittal and coronal reconstructions were performed to potentially increase the sensitivity for the detection of disease. CT scan was performed according to ALARA (as low as reasonable achievable). COMPARISON: 03/07/2024 11:30:19 [employer]. FINDINGS: Focal fibrotic scar is noted involving right apical segment. Few atelectatic bands are noted involving left lower lobe and lingula Diffuse centrilobular emphysema noted involving both lungs. Subtle few tiny ground-glass area are noted involving right upper lobe. Rest of lungs are clear. The central airways are patent. There are no pleural effusions. No pneumothorax is seen. Evaluation of the mediastinum and amalia is limited due to the lack of intravenous contrast. No axillary or mediastinal adenopathy is identified. The thyroid is unremarkable. The heart, aorta, and pulmonary arteries are of normal size and configuration. There are no appreciable coronary artery and aortic atherosclerotic calcifications. No pericardial effusion is identified. Imaged portions of the upper abdomen are unremarkable. Sclerotic lesions seen in left 5th rib. Multiple sclerotic foci also seen in thoracic vertebral bodies. IMPRESSION: Focal fibrotic scar is noted involving right apical segment. -stable. Few atelectatic bands are noted involving left lower lobe and lingula - sequelae of previous infection Diffuse centrilobular emphysema noted involving both lungs. -stable. Subtle few tiny ground-glass area are noted involving right upper lobe. -stable. Sclerotic lesions seen in left 5th rib. Multiple sclerotic foci also seen in thoracic vertebral bodies. Likely metastatic. Increased in extent and size as compared to prior study- suggestive of progressive disease. Electronically signed by Michael Herzog 08-11-2024 01:50 AM (3) Infected venous access port Encounter type: initial encounter Qualified Code(s): T80.219A - Unspecified infection due to central venous catheter, initial encounter
[2024-08-12] MEDS: oxyCODONE HCL IR 5 MG TAB (IMMEDIATE RELEASE) PO PRN (20:51)
[2024-08-12] MEDS: LR 15ML/HR IV SCH (22:08)
[2024-08-13 06:21] LABS: Hematocrit (blood only) 32.3 % (37.0-47.0); Hemoglobin 11.2 g/dl (12.0-16.0); Mean Corpuscular Hemoglobin 32.7 pg (25.0-34.0); Mean Corpuscular Hgb Conc 34.7 g/dL (32.0-36.0); Mean Corpuscular Volume 94.2 fL (80.0-100.0); Mean Platelet Volume 10.6 fL (9.4-12.4); Platelet Count 160 K/uL (130-400); RDW Coefficient of Variation 15.7 % (11.5-14.5); RDW Standard Deviation 54.9 fL (36.4-46.3); Red Blood Count 3.43 M/uL (4.20-5.40); White Blood Count 13.98 K/ul (4.8-10.8)
[2024-08-13 06:58] LABS: BUN Creatinine Ratio 25.5 (10-20); Calcium 8.7 mg/dl (8.6-10.3); Creatinine Clr Calc Pharmacy 121.1 ml/min; Potassium 3.7 mmol/L (3.5-5.1)
[2024-08-13 07:58] VITALS: BP 116/65; PULSE 101; RESP 20; TEMP 98.6; O2SAT 96
[2024-08-13] MEDS: SULFA/TRIMETH 400/80MG TAB PO SCH (08:21)
[2024-08-13] MEDS: AMOXICILLIN/CLAVULANATE 875 MG TAB PO SCH (08:39)
--- NOTE | 2024-08-13 09:20 | Surgery Progress Note ---
Date of Service August 13, 2024 Assessment & Plan (1) Infected venous access port: Plan: She is doing well 1 day after port removal Surgery will sign off at this time, please call with any questions or concerns Admission and Anticipated Discharge Date Admission Date: August 10, 2024 Subjective Patient seen and examined. Denies any pain. Physical Exam Chest (Breasts): Additional Comments: Incision well-healed with mild erythema present Results & Data Vital Signs (Past 12 Hours) Vital Signs Temp Pulse Pulse Resp BP Pulse Ox O2 Del Method 08/13/24 07:57 37.0 C 101 H 20 116/65 96 Room Air 08/13/24 07:06 105 H 08/13/24 03:20 36.6 C 105 H 16 124/76 92 Room Air 08/12/24 23:15 36.4 C L 100 H 16 107/68 95 Room Air 08/12/24 22:05 97 H PG Care Time/CCT Total # of Minutes Spent Total Time Spent with Patient: Total time spent is greater than 50% in coordination of care (as documented) at patient's floor/unit and/or counseling patient: Coding Level of Care Code 13461 Post Operative Follow-Up Diagnoses Infection of venous access port, initial encounter T80.219A Encounter type: initial encounter (1) Infected venous access port Encounter type: initial encounter Qualified Code(s): T80.219A - Unspecified infection due to central venous catheter, initial encounter
--- NOTE | 2024-08-13 10:46 | Discharge Summary ---
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 Schaefer -ECOG 1 and remains treatment candidate -f/u with oncology outpatient (3) Infected venous access port: -as noted by SIRS criteria, erythema around port, concerns regarding port in past -no other clinical nidus of infection based on examination -now s/p removal (4) Cancer related pain: -patient has lower back pain in site of cancer related disease Plan: -consider referral to rad onc outpatient for pain relief -start lidocaine patches, continue percocet Notes For Next Care Provider 59-year-old female with past medical history of lung adenocarcinoma currently on treatment who presents for recurrent redness and swelling around port site. Upon admission to medicine patient show CAT scan shows concerns for sepsis patient started on empiric antibiotics. Discussed with outpatient oncology provider who agreed source of infection is likely in port. General surgery was consulted, and port was removed. Patient felt significantly better after antibiotics and port removal. Leukocytosis down trended and clinically improved. Patient is medically stable for discharge on course of antibiotics to treat any remaining skin and soft tissue infection along with Gardnerella in the urine. Medication Changes From Visit -augmentin, bactrim Admission HPI Per Admitting Provider History obtained from patient, family, and records. Medical history significant for COPD, WHIT as per records, hyperlipidemia, metastatic lung adenocarcinoma status post surgery/radiation/ongoing chemotherapy, prior [place] on recent outpatient PET scan, GERD, mood disorder, past tobacco abuse. Patient with recurrent redness/swelling over right Aport site the last 2 months. IR guided A port placeemnt at [facility] March 2024. 2 courses of outpatient Keflex. Seems to be coinciding with chemotherapy sessions as per patient. Twist or spiral on Mediport catheter within proximal SVC incidentally found on outpatient PET/CT June 2024. Patient recently started by outpatient oncology provider on Bactrim course following visit 2 days ago. Tonight, patient noted fever, chills at home. Denies chest pain, SOB, cough, abdominal pain, diarrhea or dysuria symptoms. IV cefepime administered at the ER. Medical History as above Outpatient PET/CT June 2024 1. Findings consistent with response to therapy with decreasing size and activity of the esophageal/paraesophageal lesion in the lower thorax, left infrahilar lymph node, left lower lobe nodule, and left paraspinal/costophrenic angle nodule. 2. Multiple previously treated osseous metastatic lesions. The remaining active ones are as detailed below with decreased activity from the previous examination consistent with response to therapy. 3. Diffuse marrow space activity is present, likely secondary to hyperstimulation or rebound effect. 4. There is a twist or spiral of the MediPort catheter within the proximal superior vena cava. Recommend correlation with catheter function. 5. Prior myocardial infarction. Outpatient G cardiology visit today given myocardial infarction on outpatient CT associated with post chemo chest pain. Outpatient nuclear stress test contemplated next week. Aspirin and metoprolol Rx prescribed by outpatient provider interim. 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 External ears normal. No rhinorrhea. Moist mucous membranes. Neck: Supple, full range of motion, no observable masses, No meningeal sign. Lungs: No Respiratory distress. CV: RRR, no edema. Abdomen: Soft, nondistended, No rebound tenderness. MSK: s/p port removal Skin: No rashes, petechiae, lesions. Normal color per patient. Neuro: Normal Gait, Grossly intact. Psych: Appropriate for situation. Updated Medication List Medication Instructions Recorded Confirmed Type atorvastatin 40 mg tablet 40 mg PO QAM 04/27/24 08/10/24 History cholecalciferol (vitamin D3) 50 50 mcg PO HS 04/27/24 08/10/24 History mcg (2,000 unit) capsule clonazepam 0.5 mg tablet 0.5 mg PO DAILY PRN anxiety 04/27/24 08/10/24 History conjugated estrogens 0.625 mg 0.625 mg PO HS 04/27/24 08/10/24 History tablet (Premarin) duloxetine 30 mg capsule,delayed 30 mg PO HS 04/27/24 08/10/24 History release ferrous sulfate 325 mg (65 mg 325 mg PO HS 04/27/24 08/10/24 History iron) tablet oxycodone-acetaminophen 5 mg-325 2 tab PO Q6H PRN pain 04/27/24 08/10/24 History mg tablet (Percocet) pantoprazole 40 mg tablet,delayed 40 mg PO BID 04/27/24 08/10/24 History release tiotropium 2.5 mcg-olodaterol 2.5 2 puff inhalation QAM 04/27/24 08/10/24 History mcg/actuation mist for inhalation (Stiolto Respimat) trazodone 50 mg tablet 100 mg PO HS 04/27/24 08/10/24 History allopurinol 100 mg tablet 100 mg PO QAM 08/10/24 08/10/24 History aspirin 81 mg tablet,delayed 81 mg PO DAILY 08/10/24 08/10/24 History release metoprolol succinate 25 mg 12.5 mg PO DAILY 08/10/24 08/10/24 History tablet,extended release 24 hr olanzapine 10 mg tablet See Rx Instructions .Route .COMPLEX 08/10/24 08/10/24 History ondansetron HCl 8 mg tablet 8 mg PO Q8 PRN Nausea 08/10/24 08/10/24 History amoxicillin 875 mg-potassium 1 tab PO BIDM 7 days #14 tabs 08/13/24 Rx clavulanate 125 mg tablet sulfamethoxazole 400 1 tab PO Q12H 7 days #14 tabs 08/13/24 Rx mg-trimethoprim 80 mg tablet (Bactrim) Hospital Stay Data Consultations 08/10/24 23:23 ED Decision to Admit Stat 08/11/24 11:04 Consult General Surgery Routine Procedures Performed Operation Date: 08/12/24 12:15 Actual Procedures p Infusaport Removal(Not Applicable) - Gerson Du DO Diagnostic Imagining Performed 08/10/24 23:59 CT chest diagnostic wo con Stat Pending Results Patient Have Any Pending Studies at Discharge: No Discharge Instructions Given to Patient (Per Discharging Provider) You have surgical glue called dermabond on your surgical site incisions. You may shower with this on. This will tend to come off within a couple of weeks. Do not pick at it. Total Time Total Time Spent Total Time Spent (In Minutes): I spent a total of 45 minutes coordinating, documenting, and providing care for this patient excluding time spent in the performance of separately billed services.
== END 2024-08-13 11:35 | disposition home or self-care (01) | DRG 314 ==
LOC: ED 21:30 → 2W 23:35